=== PATIENT | male | born 1975 | race Caucasian/White ===

== ENCOUNTER 2018-06-14 01:17 | Inpatient (IN) | payer MEDICARE, OTHER ==
[~2018-06-14] VITALS: Ht 162.6 cm; Wt 84.4 kg
[2018-06-14] MEDS ORDERED: Morphine Sulfate 4mg/ml Inj (IV USE ONLY) IVP ONE (01:30)
[2018-06-14 02:07] VITALS: BP 165/116
--- NOTE | 2018-06-14 02:10 | NUR ---
ER Nurse Note: Pt DANIELA from SNF c/o lower back pain. Per pt, pt was dropped from a [facility] 06/13 and has been in 12/13 constant pain. Pt a&ox4, no signs of distress. Pt is quadriplegic. Pt has a suprapubic cath prior to admission. Per pt, the cathder has not been changed since 5 years ago. Will continue to [facility].
[2018-06-14 02:22] LABS: BILIRUBIN, URINE NEGATIVE (NEGATIVE); GLUCOSE, URINE (UA) 3+ (NEGATIVE); KETONES,URINE NEGATIVE (NEGATIVE); LEUKOCYTE ESTERASE ,URINE 3+ (NEGATIVE); NITRITE,URINE POSITIVE (NEGATIVE); PH,URINE 7 (4.5-8.0); PROTEIN,URINE 4+ (NEGATIVE); UROBILINOGEN,URINE NORMAL MG/DL (0.0-1.0)
--- NOTE | 2018-06-14 02:27 | Emergency Room Report ---
History of Present Illness General Chief Complaint: Lower Back Pain or Injury Source: Patient Present Illness HPI Patient presents with complaints of several different concerns Patient has a suprapubic catheter and reports that he has increased discomfort in that region continued low back discomfort patient reports that he has history of spina bifida an ongoing infection Reports that he was dropped today and has had continued discomfort as well patient is paraplegic denies any chest pain or shortness of breath questionable low-grade fever denies any neck pain denies any rash Allergies: Coded Allergies: CIPROFLOXACIN (Verified Allergy, Unknown, 06/14/18) HALOPERIDOL (Verified Allergy, Unknown, 06/14/18) RISPERIDONE (Verified Allergy, Unknown, 06/14/18) SENNA (Verified Allergy, Unknown, 06/14/18) Patient History Past Medical History: see triage record Pertinent Family History: none Reviewed Nursing Documentation: PMH: Agreed; PSxH: Agreed Nursing Documentation-PMH Hx COPD: Yes Hx Diabetes: Yes Hx Gastrointestinal Problems: Yes - Reflux History Of Psychiatric Problem: Yes - Schizophrenia Review of Systems All Other Systems: negative except mentioned in HPI Physical Exam Vital Signs Date Time Temp Pulse Resp B/P (MAP) Pulse Ox O2 Delivery O2 Flow Rate FiO2 06/14/18 01:23 98.1 104 18 165/116 96 Room Air Sp02 EP Interpretation: reviewed, normal General Appearance: no apparent distress Head: normocephalic, atraumatic Eyes: bilateral eye PERRL, bilateral eye EOMI ENT: hearing grossly normal, normal pharynx Respiratory: lungs clear, no retraction, no accessory muscle use Cardiovascular #1: regular rate, rhythm Gastrointestinal: non tender, soft, no mass Musculoskeletal: other - Patient is paraplegic Neurologic: alert, oriented x3, responsive Psychiatric: anxious Skin: other - Edema in both lower extremities open wound in the back, Lymphatic: no adenopathy Medical Decision Making Diagnostic Impression: Primary Impression: Low back pain Additional Impression: UTI (urinary tract infection) ER Course Given the patient's history and presentation multiple differentials and consideration Patient is somewhat complex requires pain medication as well Patient's urine sample shows significant infectious pathology He reports that he has had infection on every urine sample that has been obtained He also reports that he always gets C. difficile if he gets put on antibiotics Patient does not appear necessarily septic or toxic currently Patient also not able to facilitate himself at the facility that he was at Requires further inpatient care and appropriate disposition Labs Test 06/14/18 02:05 06/14/18 03:00 Urine Color Yellow Urine Appearance Turbid Urine pH 7 (4.5-8.0) Urine Specific [place] 1.010 (1.005-1.035) Urine Protein 4+ (NEGATIVE) Urine Glucose (UA) 3+ (NEGATIVE) Urine Ketones Negative (NEGATIVE) Urine Blood 5+ (NEGATIVE) Urine Nitrite Positive (NEGATIVE) Urine Bilirubin Negative (NEGATIVE) Urine Urobilinogen Normal MG/DL (0.0-1.0) Urine Leukocyte Esterase 3+ (NEGATIVE) Urine RBC Tntc /HPF (0 - 0) Urine WBC Tntc /HPF (0 - 0) Urine Squamous Epithelial Cells None /LPF (NONE/OCC) Urine Bacteria Many /HPF (NONE) White Blood Count 9.2 K/UL (4.8-10.8) Red Blood Count 5.01 M/UL (4.70-6.10) Hemoglobin 13.8 G/DL (14.2-18.0) Hematocrit 42.4 % (42.0-52.0) Mean Corpuscular Volume 85 FL (80-99) Mean Corpuscular Hemoglobin 27.6 PG (27.0-31.0) Mean Corpuscular Hemoglobin Concent 32.6 G/DL (32.0-36.0) Red Cell Distribution Width 14.5 % (11.6-14.8) Platelet Count 331 K/UL (150-450) Mean Platelet Volume 5.8 FL (6.5-10.1) Neutrophils (%) (Auto) 61.7 % (45.0-75.0) Lymphocytes (%) (Auto) 25.8 % (20.0-45.0) Monocytes (%) (Auto) 9.5 % (1.0-10.0) Eosinophils (%) (Auto) 1.9 % (0.0-3.0) Basophils (%) (Auto) 1.1 % (0.0-2.0) Sodium Level 136 MMOL/L (136-145) Potassium Level 4.2 MMOL/L (3.5-5.1) Chloride Level 101 MMOL/L (98-107) Carbon Dioxide Level 22 MMOL/L (21-32) Anion Gap 13 mmol/L (5-15) Blood Urea Nitrogen 13 mg/dL (7-18) Creatinine 0.5 MG/DL (0.55-1.30) Estimat Glomerular Filtration Rate > 60 mL/min (>60) Glucose Level 270 MG/DL (74-106) Calcium Level 9.2 MG/DL (8.5-10.1) Total Bilirubin 0.1 MG/DL (0.2-1.0) Aspartate Amino Transf (AST/SGOT) 17 U/L (15-37) Alanine Aminotransferase (ALT/SGPT) 32 U/L (12-78) Alkaline Phosphatase 78 U/L (46-116) Total Protein 8.1 G/DL (6.4-8.2) Albumin 3.0 G/DL (3.4-5.0) Globulin 5.1 g/dL Albumin/Globulin Ratio 0.6 (1.0-2.7) Lipase 167 U/L (73-393) Last Vital Signs Date Time Temp Pulse Resp B/P (MAP) Pulse Ox O2 Delivery O2 Flow Rate FiO2 06/14/18 02:07 98.1 86 18 165/116 96 Room Air Status: improved Disposition: ADMITTED INPATIENT Condition: Serious Referrals: Srini Cox DO (PCP) John Quijano DO Jun 14, 2018 02:27
[2018-06-14 02:33] LABS: COLOR,URINE YELLOW
[2018-06-14 02:36] LABS: APPEARANCE,URINE TURBID
[2018-06-14] MEDS ORDERED: cefTRIAXone 1 GM in D5W 55 ML IVPB ONE (03:00)
--- NOTE | 2018-06-14 03:08 | NUR ---
ED Nurse Note: Unable to start peripheral IV x several attempts and multiple nurses. Dr. Quijano states the patient can be admitted upstairs without an IV line.
--- NOTE | 2018-06-14 03:09 | NUR ---
ER Nurse Note: Primary RN, charge nurse and other nursing staff could not establish IV access; ERMD aware and per ERMD verbal order, it is okay for pt not to have an IV and can go to floor without IV. Lab was called to draw blood; awaiting results then ready for transport. Pt a&ox4, no signs of distress; will continue to [facility].
[2018-06-14] MEDS ORDERED: Morphine Sulfate 2mg/ml Inj(IV/IM USE ONLY) IM ONE (03:15)
[2018-06-14 03:22] LABS: BASOPHILS % (AUTO) 1.1 % (0.0-2.0); EOSINOPHILS % (AUTO) 1.9 % (0.0-3.0); HEMATOCRIT 42.4 % (42.0-52.0); HEMOGLOBIN 13.8 G/DL (14.2-18.0); LYMPHOCYTES % (AUTO) 25.8 % (20.0-45.0); MEAN CORPUSCULAR VOLUME 85 FL (80-99); MONOCYTES % (AUTO) 9.5 % (1.0-10.0); NEUTROPHILS % (AUTO) 61.7 % (45.0-75.0); PLATELET COUNT 331 K/UL (150-450); RED BLOOD COUNT 5.01 M/UL (4.70-6.10); RED CELL DISTRIBUTION WIDTH 14.5 % (11.6-14.8); WHITE BLOOD COUNT 9.2 K/UL (4.8-10.8)
[2018-06-14 03:25] LABS: ANION GAP 13 mmol/L (5-15); BLOOD UREA NITROGEN 13 mg/dL (7-18); CALCIUM 9.2 MG/DL (8.5-10.1); CARBON DIOXIDE 22 MMOL/L (21-32); CHLORIDE 101 MMOL/L (98-107); CREATININE 0.5 MG/DL (0.55-1.30); POTASSIUM 4.2 MMOL/L (3.5-5.1); SODIUM 136 MMOL/L (136-145)
[2018-06-14 03:30] LABS: ALANINE AMINOTRANSFERASE 32 U/L (12-78); ALBUMIN/GLOBULIN RATIO 0.6 (1.0-2.7); ALKALINE PHOSPHATASE 78 U/L (46-116); ASPARTATE AMINO TRANSFERASE 17 U/L (15-37); BILIRUBIN,TOTAL 0.1 MG/DL (0.2-1.0)
--- NOTE | 2018-06-14 03:46 | NUR ---
ER Nurse Note: Pt refused to be cleaned; primary nurse, charge nurse, and other staff member offered and refused. Pt demanded to stay on the linens he came with and refused to be changed with hospital gown. Wound documented; pt ready for transport.
--- NOTE | 2018-06-14 04:30 | NUR ---
ER Nurse Note: Report given to OBED Abad in [place] for continuity of care. Pt a&ox4, VSS, no signs of distress. No IV access, ERMD aware. All orders completed per ERMD orders. Pt left with all belongings.
--- NOTE | 2018-06-14 04:40 | NUR ---
NURSE NOTES: Pt received a&ox4, VSS, no signs of distress. Extremely garrulous.No IV access, ERMD aware. I will place an IV. Pt left with all belongings. Belongings list signed.
[2018-06-14 05:00] VITALS: BP 137/98
--- NOTE | 2018-06-14 07:45 | NUR ---
NURSE NOTES: Report received from Annalee CLAY, rounds made. Patient resting in semi-fowlers position in bed, unable to move upper/lower extremities. RW heplock intact, asymptomatic. Patient complains of pain to lower back 12/13, awaiting call back from MD for orders, will medicate when orders received, patient aware. No SOB on RA, no NV. Left lower abdomen suprapubic catheter draining yellow cloudy urine to gravity. Right ischium pressure ulcer noted, awaiting air tucker to assess and advise further on wound care. Patient refused repositioning, would like to stay in supine/semi-fowlers position, educated on pressure ulcer prevention/turning every 2 hours. Patient screaming, inappropriate, cursing, updated patient on order status. Offered PO intake. Bed in lowest position, call light in reach (patient unable to press), side rails up x2, will continue to monitor.
[2018-06-14 08:00] VITALS: BP 131/90
--- NOTE | 2018-06-14 08:42 | NUR ---
HAND-OFF: Report given to OBED Thomas.
--- NOTE | 2018-06-14 08:56 | NUR ---
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 LOWER BACK PAIN VS: BP 165/116, P 104, T 98.0, RR 18, SpO2 96 Hgb 13.8, CR 0.5, URINE: Blood 5+, Protein 4+, Glucose 3+ IS:ZOFRAN 4mg MORPHINE 4mg IM ADMITTED TO MED/SURG DCP; RETURN TO [facility]
--- NOTE | 2018-06-14 09:18 | NUR ---
NURSE NOTES: Dr Cox called multiple times, Left message, No response, called supervisor tank house to attempt to receive admission orders
[2018-06-14] MEDS ORDERED: Miralax 17gm pkt ORAL PRN (10:00)
[2018-06-14] MEDS ORDERED: Zolpidem 5mg tab ORAL PRN (10:00)
[2018-06-14] MEDS ORDERED: Morphine Sulfate 4mg/ml Inj (IV USE ONLY) IVP PRN (10:00)
[2018-06-14] MEDS ORDERED: Mylanta II UD 30ml ORAL PRN (10:00)
--- NOTE | 2018-06-14 10:47 | Consultation ---
History of Present Illness General Date patient seen: Jun 14, 2018 Chief Complaint: Lower Back Pain or Injury Reason for Consultation: UTI Present Illness HPI Mr. Guerin is a 43 yo male with PMHx of Spina bifida, COPD, DM, and Schizophrenia who presented to the ED on 06/13/18 after a fall. Eliseo patient reports that he was dropped. He also reports pain at his suprapubic cath site and subjective fevers. In the ED he was afebrile and had no leukoctyosis. His UA was positive and he was given a dose of ceftriaxone. He is currently concerned about back pain and constipation and reports that he has not had a BM on 4 days. He has been upset about this and is not will to wait for the laxatives to work and is demanding an enema. I would not for the record that he has been verbally abusive to his nurse and other staff. ID consulted for UTI PMHx/PSHx Spina bifida COPD DM Schizophrenia Suprapubic cath SocHx No E/T/D FamHx Not contributory Allergies: Coded Allergies: CIPROFLOXACIN (Verified Allergy, Unknown, 06/14/18) HALOPERIDOL (Verified Allergy, Unknown, 06/14/18) RISPERIDONE (Verified Allergy, Unknown, 06/14/18) SENNA (Verified Allergy, Unknown, 06/14/18) Patient History Healthcare decision maker Resuscitation status Full Code Advanced Directive on File Review of Systems ROS Narrative 12 point ROS negative except as note in the HPI. Physical Exam Last 24 Hour Vital Signs Date Time Temp Pulse Resp B/P (MAP) Pulse Ox O2 Delivery O2 Flow Rate FiO2 06/14/18 08:00 97.8 94 20 131/90 (104) 99 06/14/18 07:29 Room Air 06/14/18 05:00 97.3 97 20 137/98 (111) 100 06/14/18 04:30 97.8 84 18 148/98 97 Room Air 06/14/18 04:00 98.1 06/14/18 02:07 98.1 86 18 165/116 96 Room Air 06/14/18 01:23 98.1 104 18 165/116 96 Room Air Laboratory Tests Test 06/14/18 02:05 06/14/18 03:00 Urine Color Yellow Urine Appearance Turbid Urine pH 7 (4.5-8.0) Urine Specific [place] 1.010 (1.005-1.035) Urine Protein 4+ (NEGATIVE) H Urine Glucose (UA) 3+ (NEGATIVE) H Urine Ketones Negative (NEGATIVE) Urine Blood 5+ (NEGATIVE) H Urine Nitrite Positive (NEGATIVE) H Urine Bilirubin Negative (NEGATIVE) Urine Urobilinogen Normal MG/DL (0.0-1.0) Urine Leukocyte Esterase 3+ (NEGATIVE) H Urine RBC Tntc /HPF (0 - 0) H Urine WBC Tntc /HPF (0 - 0) H Urine Squamous Epithelial Cells None /LPF (NONE/OCC) Urine Bacteria Many /HPF (NONE) H White Blood Count 9.2 K/UL (4.8-10.8) Red Blood Count 5.01 M/UL (4.70-6.10) Hemoglobin 13.8 G/DL (14.2-18.0) L Hematocrit 42.4 % (42.0-52.0) Mean Corpuscular Volume 85 FL (80-99) Mean Corpuscular Hemoglobin 27.6 PG (27.0-31.0) Mean Corpuscular Hemoglobin Concent 32.6 G/DL (32.0-36.0) Red Cell Distribution Width 14.5 % (11.6-14.8) Platelet Count 331 K/UL (150-450) Mean Platelet Volume 5.8 FL (6.5-10.1) L Neutrophils (%) (Auto) 61.7 % (45.0-75.0) Lymphocytes (%) (Auto) 25.8 % (20.0-45.0) Monocytes (%) (Auto) 9.5 % (1.0-10.0) Eosinophils (%) (Auto) 1.9 % (0.0-3.0) Basophils (%) (Auto) 1.1 % (0.0-2.0) Sodium Level 136 MMOL/L (136-145) Potassium Level 4.2 MMOL/L (3.5-5.1) Chloride Level 101 MMOL/L (98-107) Carbon Dioxide Level 22 MMOL/L (21-32) Anion Gap 13 mmol/L (5-15) Blood Urea Nitrogen 13 mg/dL (7-18) Creatinine 0.5 MG/DL (0.55-1.30) L Estimat Glomerular Filtration Rate > 60 mL/min (>60) Glucose Level 270 MG/DL (74-106) H Calcium Level 9.2 MG/DL (8.5-10.1) Total Bilirubin 0.1 MG/DL (0.2-1.0) L Aspartate Amino Transf (AST/SGOT) 17 U/L (15-37) Alanine Aminotransferase (ALT/SGPT) 32 U/L (12-78) Alkaline Phosphatase 78 U/L (46-116) Total Protein 8.1 G/DL (6.4-8.2) Albumin 3.0 G/DL (3.4-5.0) L Globulin 5.1 g/dL Albumin/Globulin Ratio 0.6 (1.0-2.7) L Lipase 167 U/L (73-393) Microbiology Date/Time Source Procedure Growth Status 06/14/18 05:30 Rectum Received Height (Feet): 5 Height (Inches): 4.00 Weight (Pounds): 186 Medications Current Medications Medications (Trade) Dose Ordered Sig/Trevin Route PRN Reason Start Time Stop Time Status Last Admin Dose Admin Acetaminophen (Tylenol) 650 mg Q4H PRN ORAL fever 06/14/18 10:00 07/14/18 09:59 Al Hydroxide/Mg Hydroxide (Mylanta II) 30 ml Q6H PRN ORAL dyspepsia 06/14/18 10:00 07/14/18 09:59 Dextrose (Dextrose 50%) 25 ml Q30M PRN IV Hypoglycemia 06/14/18 10:00 07/14/18 09:59 Dextrose (Dextrose 50%) 50 ml Q30M PRN IV Hypoglycemia 06/14/18 10:00 07/14/18 09:59 Heparin Sodium (Porcine) (Heparin 5000 units/ml) 5,000 units EVERY 12 HOURS SUBQ 06/14/18 21:00 07/14/18 20:59 Lorazepam (Ativan 2mg/ml 1ml) 0.5 mg Q4H PRN IV For Anxiety 06/14/18 10:00 06/21/18 09:59 Morphine Sulfate (Morphine Sulfate) 2 mg Q4H PRN IVP For Pain 4-6 06/14/18 10:00 06/21/18 09:59 Morphine Sulfate (Morphine Sulfate) 4 mg Q4H PRN IVP For Pain 7-10 06/14/18 10:00 06/21/18 09:59 Ondansetron HCl (Zofran) 4 mg Q6H PRN IVP Nausea & Vomiting 06/14/18 10:00 07/14/18 09:59 Polyethylene Glycol (Miralax) 17 gm HSPRN PRN ORAL Constipation 06/14/18 10:00 07/14/18 09:59 Zolpidem Tartrate (Ambien) 5 mg HSPRN PRN ORAL Insomnia 06/14/18 10:00 06/21/18 09:59 Objective Narrative Gen: NAD, well appearing, alert HEENT: NCAT, MMM, EOMI, PERRL, No Oral lesion, no scleral icterus NECK: full range of motion, supple, no meningismus, No LAD, No JVD LUNGS: CTAB, No W/C, No Accessory muscle use CARDS: RRR, S1, S2, No M/R/G, ABD: Soft, NT, ND, No R/G, + BS, No HSM, No Masses : Deferred Ext: C/C/E, Pulses 2+ B/L (DP, Rad): NEURO: A/O x 4 PSYCH: Mood/affect normal SKIN: Warm/dry, No rashes, He has an ischial ulceration. (No P/E) Assessment/Plan Assessment/Plan 43 yo male with PMHx of Spina bifida, COPD, DM, and Schizophrenia who presented to the ED on 06/13/18 after a fall. UTI Suprapubic cath UA positive UCx 06/13/18 - Pend Leg wounds Do not appear ot be infected Spina bifida COPD DM Schizophrenia Plan - Continue Ceftraxone #2/7 - f/u UCx - Monitor CBC and temps - wound care Thank you for this consult. We will continue to follow the patient during this hospitalization. Octavio Mckinney MD Jun 14, 2018 10:47
[2018-06-14 12:00] VITALS: BP 136/88
[2018-06-14] MEDS ORDERED: cefTRIAXone 1 GM in D5W 55 ML IVPB SCH (12:00)
[2018-06-14] MEDS ORDERED: Fleet's Mineral Oil Enema RECTAL ONE (13:11)
--- NOTE | 2018-06-14 13:32 | Consultation ---
History of Present Illness General Date patient seen: Jun 14, 2018 Chief Complaint: Lower Back Pain or Injury Reason for Consultation: UTI Present Illness HPI 42 year old male with paraplegia, spina bifida, bed bound presented to ER with complaints of severe back pain. Apparently he was dropped today and has had continued discomfort as well patient is paraplegic denies any chest pain or shortness of breath questionable low-grade fever denies any neck pain denies any rash Allergies: Coded Allergies: CIPROFLOXACIN (Verified Allergy, Unknown, 06/14/18) HALOPERIDOL (Verified Allergy, Unknown, 06/14/18) RISPERIDONE (Verified Allergy, Unknown, 06/14/18) SENNA (Verified Allergy, Unknown, 06/14/18) Patient History Healthcare decision maker Resuscitation status Full Code Advanced Directive on File Past Medical/Surgical History Past Medical/Surgical History: (1) Low back pain Review of Systems Constitutional: Reports: no symptoms ENT: Reports: no symptoms Physical Exam General Appearance: WD/WN, no apparent distress HEENT: normocephalic, anicteric Neck: non-tender, normal alignment Respiratory/Chest: lungs clear, normal breath sounds Cardiovascular/Chest: normal peripheral pulses, normal rate Last 24 Hour Vital Signs Date Time Temp Pulse Resp B/P (MAP) Pulse Ox O2 Delivery O2 Flow Rate FiO2 06/14/18 08:00 97.8 94 20 131/90 (104) 99 06/14/18 07:29 Room Air 06/14/18 05:00 97.3 97 20 137/98 (111) 100 06/14/18 04:30 97.8 84 18 148/98 97 Room Air 06/14/18 04:00 98.1 06/14/18 02:07 98.1 86 18 165/116 96 Room Air 06/14/18 01:23 98.1 104 18 165/116 96 Room Air Laboratory Tests Test 06/14/18 02:05 06/14/18 03:00 Urine Color Yellow Urine Appearance Turbid Urine pH 7 (4.5-8.0) Urine Specific [place] 1.010 (1.005-1.035) Urine Protein 4+ (NEGATIVE) H Urine Glucose (UA) 3+ (NEGATIVE) H Urine Ketones Negative (NEGATIVE) Urine Blood 5+ (NEGATIVE) H Urine Nitrite Positive (NEGATIVE) H Urine Bilirubin Negative (NEGATIVE) Urine Urobilinogen Normal MG/DL (0.0-1.0) Urine Leukocyte Esterase 3+ (NEGATIVE) H Urine RBC Tntc /HPF (0 - 0) H Urine WBC Tntc /HPF (0 - 0) H Urine Squamous Epithelial Cells None /LPF (NONE/OCC) Urine Bacteria Many /HPF (NONE) H White Blood Count 9.2 K/UL (4.8-10.8) Red Blood Count 5.01 M/UL (4.70-6.10) Hemoglobin 13.8 G/DL (14.2-18.0) L Hematocrit 42.4 % (42.0-52.0) Mean Corpuscular Volume 85 FL (80-99) Mean Corpuscular Hemoglobin 27.6 PG (27.0-31.0) Mean Corpuscular Hemoglobin Concent 32.6 G/DL (32.0-36.0) Red Cell Distribution Width 14.5 % (11.6-14.8) Platelet Count 331 K/UL (150-450) Mean Platelet Volume 5.8 FL (6.5-10.1) L Neutrophils (%) (Auto) 61.7 % (45.0-75.0) Lymphocytes (%) (Auto) 25.8 % (20.0-45.0) Monocytes (%) (Auto) 9.5 % (1.0-10.0) Eosinophils (%) (Auto) 1.9 % (0.0-3.0) Basophils (%) (Auto) 1.1 % (0.0-2.0) Sodium Level 136 MMOL/L (136-145) Potassium Level 4.2 MMOL/L (3.5-5.1) Chloride Level 101 MMOL/L (98-107) Carbon Dioxide Level 22 MMOL/L (21-32) Anion Gap 13 mmol/L (5-15) Blood Urea Nitrogen 13 mg/dL (7-18) Creatinine 0.5 MG/DL (0.55-1.30) L Estimat Glomerular Filtration Rate > 60 mL/min (>60) Glucose Level 270 MG/DL (74-106) H Calcium Level 9.2 MG/DL (8.5-10.1) Total Bilirubin 0.1 MG/DL (0.2-1.0) L Aspartate Amino Transf (AST/SGOT) 17 U/L (15-37) Alanine Aminotransferase (ALT/SGPT) 32 U/L (12-78) Alkaline Phosphatase 78 U/L (46-116) Total Protein 8.1 G/DL (6.4-8.2) Albumin 3.0 G/DL (3.4-5.0) L Globulin 5.1 g/dL Albumin/Globulin Ratio 0.6 (1.0-2.7) L Lipase 167 U/L (73-393) Microbiology Date/Time Source Procedure Growth Status 06/14/18 05:30 Rectum Received Height (Feet): 5 Height (Inches): 4.00 Weight (Pounds): 186 Medications Current Medications Medications (Trade) Dose Ordered Sig/Trevin Route PRN Reason Start Time Stop Time Status Last Admin Dose Admin Acetaminophen (Tylenol) 650 mg Q4H PRN ORAL fever 06/14/18 10:00 07/14/18 09:59 Al Hydroxide/Mg Hydroxide (Mylanta II) 30 ml Q6H PRN ORAL dyspepsia 06/14/18 10:00 07/14/18 09:59 Ceftriaxone Sodium 1 gm/ Dextrose 55 ml @ 110 mls/hr Q24H IVPB 06/14/18 12:00 06/21/18 11:59 Dextrose (Dextrose 50%) 25 ml Q30M PRN IV Hypoglycemia 06/14/18 10:00 07/14/18 09:59 Dextrose (Dextrose 50%) 50 ml Q30M PRN IV Hypoglycemia 06/14/18 10:00 07/14/18 09:59 Heparin Sodium (Porcine) (Heparin 5000 units/ml) 5,000 units EVERY 12 HOURS SUBQ 06/14/18 21:00 07/14/18 20:59 Hydromorphone HCl (Dilaudid) 4 mg Q4H PRN ORAL pain>7 06/14/18 13:30 06/21/18 13:29 UNV Lorazepam (Ativan 2mg/ml 1ml) 0.5 mg Q4H PRN IV For Anxiety 06/14/18 10:00 06/21/18 09:59 Methadone HCl (Methadone HCl) 10 mg EVERY 8 HOURS ORAL 06/14/18 14:00 06/21/18 13:59 UNV Morphine Sulfate (Morphine Sulfate) 2 mg Q4H PRN IVP For Pain 4-6 06/14/18 10:00 06/21/18 09:59 Morphine Sulfate (Morphine Sulfate) 4 mg Q4H PRN IVP For Pain 7-10 06/14/18 10:00 06/21/18 09:59 06/14/18 10:47 Ondansetron HCl (Zofran) 4 mg Q6H PRN IVP Nausea & Vomiting 06/14/18 10:00 07/14/18 09:59 Polyethylene Glycol (Miralax) 17 gm HSPRN PRN ORAL Constipation 06/14/18 10:00 07/14/18 09:59 06/14/18 13:14 Zolpidem Tartrate (Ambien) 5 mg HSPRN PRN ORAL Insomnia 06/14/18 10:00 06/21/18 09:59 Assessment/Plan Problem List: (1) Intractable back pain ICD Codes: M54.9 - Dorsalgia, unspecified SNOMED: 491328261 (2) Paraplegia ICD Codes: G82.20 - Paraplegia, unspecified SNOMED: 87281314 Assessment/Plan pain management wound care surgery to see. Joao Siu MD Jun 14, 2018 13:32
[2018-06-14] MEDS ORDERED: Fleet's Mineral Oil Enema RECTAL SCH (13:45)
[2018-06-14 16:00] VITALS: BP 138/87
--- NOTE | 2018-06-14 16:10 | Consultation ---
History of Present Illness General Date patient seen: Jun 14, 2018 Reason for Hospitalization: Lower Back Pain or Injury Present Illness HPI 42 year old male with very unfortunate medical history who is a quadriplegic presented with pain and admitted for medical care and management. patient noted to be distended and with skin lesions. surgery called to evaluate and assist with care. patient seen, chart reviewed, patient examined. states he wants more laxatives and enema again now to help with BM. has not had bm in a few days and wants to have one now. Allergies: Coded Allergies: CIPROFLOXACIN (Verified Allergy, Unknown, 06/14/18) HALOPERIDOL (Verified Allergy, Unknown, 06/14/18) RISPERIDONE (Verified Allergy, Unknown, 06/14/18) SENNA (Verified Allergy, Unknown, 06/14/18) Patient History History Provided By: Patient, Medical Record, PMD Healthcare decision maker Resuscitation status Full Code Advanced Directive on File Past Medical/Surgical History Past Medical/Surgical History: (1) Abdominal distension (2) UTI (urinary tract infection) (3) Low back pain (4) Paraplegia (5) Intractable back pain Review of Systems Review of Symptoms General ROS: no weight loss or fever Psychological ROS: no depression or mood changes, no memory loss Ophthalmic ROS: no visual changes or eye irritation ENT ROS: no nasal congestion, hearing loss, dizziness Allergy and Immunology ROS: no allergic symptoms or urticaria Hematological and Lymphatic ROS: no swollen glands, unusual bleeding or bruising Endocrine ROS: no polyuria, polydipsia, weight changes, temperature intolerance Respiratory ROS: no cough, shortness of breath, or wheezing Cardiovascular ROS: no chest pain or dyspnea on exertion Gastrointestinal ROS: denies abdominal pain, no bright red blood in stool. Musculoskeletal ROS: no myalgias or arthralgias Neurological ROS: no TIA or stroke symptoms Dermatological ROS: no new or changing skin lesions, rashes or pruritis Physical Exam Physical Exam General appearance: alert, cooperative, no distress, appears stated age Head: Normocephalic, without obvious abnormality, atraumatic Eyes: conjunctivae/corneas clear. PERRL, EOM's intact. Fundi benign Throat: Lips, mucosa, and tongue normal. Teeth and gums normal Neck: supple, symmetrical, trachea midline, no adenopathy, thyroid: not enlarged, symmetric, no tenderness/mass/nodules, no carotid bruit and no JVD Lungs: clear to auscultation bilaterally Heart: regular rate and rhythm, S1, S2 normal, no murmur, click, rub or gallop Abdomen: soft, distended. non-tender. Bowel sounds normal. No masses, no organomegaly Extremities: extremities normal, atraumatic, no cyanosis or edema Pulses: 2+ and symmetric Skin: Skin color, texture, turgor normal. No rashes or lesions Neurologic: Grossly normal Last 24 Hour Vital Signs Date Time Temp Pulse Resp B/P (MAP) Pulse Ox O2 Delivery O2 Flow Rate FiO2 06/14/18 15:45 Room Air 06/14/18 09:00 Room Air 06/14/18 08:00 97.8 94 20 131/90 (104) 99 06/14/18 07:29 Room Air 06/14/18 05:00 97.3 97 20 137/98 (111) 100 06/14/18 04:30 97.8 84 18 148/98 97 Room Air 06/14/18 04:00 98.1 06/14/18 02:07 98.1 86 18 165/116 96 Room Air 06/14/18 01:23 98.1 104 18 165/116 96 Room Air Laboratory Tests Test 06/14/18 02:05 06/14/18 03:00 Urine Color Yellow Urine Appearance Turbid Urine pH 7 (4.5-8.0) Urine Specific Perry 1.010 (1.005-1.035) Urine Protein 4+ (NEGATIVE) H Urine Glucose (UA) 3+ (NEGATIVE) H Urine Ketones Negative (NEGATIVE) Urine Blood 5+ (NEGATIVE) H Urine Nitrite Positive (NEGATIVE) H Urine Bilirubin Negative (NEGATIVE) Urine Urobilinogen Normal MG/DL (0.0-1.0) Urine Leukocyte Esterase 3+ (NEGATIVE) H Urine RBC Tntc /HPF (0 - 0) H Urine WBC Tntc /HPF (0 - 0) H Urine Squamous Epithelial Cells None /LPF (NONE/OCC) Urine Bacteria Many /HPF (NONE) H White Blood Count 9.2 K/UL (4.8-10.8) Red Blood Count 5.01 M/UL (4.70-6.10) Hemoglobin 13.8 G/DL (14.2-18.0) L Hematocrit 42.4 % (42.0-52.0) Mean Corpuscular Volume 85 FL (80-99) Mean Corpuscular Hemoglobin 27.6 PG (27.0-31.0) Mean Corpuscular Hemoglobin Concent 32.6 G/DL (32.0-36.0) Red Cell Distribution Width 14.5 % (11.6-14.8) Platelet Count 331 K/UL (150-450) Mean Platelet Volume 5.8 FL (6.5-10.1) L Neutrophils (%) (Auto) 61.7 % (45.0-75.0) Lymphocytes (%) (Auto) 25.8 % (20.0-45.0) Monocytes (%) (Auto) 9.5 % (1.0-10.0) Eosinophils (%) (Auto) 1.9 % (0.0-3.0) Basophils (%) (Auto) 1.1 % (0.0-2.0) Sodium Level 136 MMOL/L (136-145) Potassium Level 4.2 MMOL/L (3.5-5.1) Chloride Level 101 MMOL/L (98-107) Carbon Dioxide Level 22 MMOL/L (21-32) Anion Gap 13 mmol/L (5-15) Blood Urea Nitrogen 13 mg/dL (7-18) Creatinine 0.5 MG/DL (0.55-1.30) L Estimat Glomerular Filtration Rate > 60 mL/min (>60) Glucose Level 270 MG/DL (74-106) H Calcium Level 9.2 MG/DL (8.5-10.1) Total Bilirubin 0.1 MG/DL (0.2-1.0) L Aspartate Amino Transf (AST/SGOT) 17 U/L (15-37) Alanine Aminotransferase (ALT/SGPT) 32 U/L (12-78) Alkaline Phosphatase 78 U/L (46-116) Total Protein 8.1 G/DL (6.4-8.2) Albumin 3.0 G/DL (3.4-5.0) L Globulin 5.1 g/dL Albumin/Globulin Ratio 0.6 (1.0-2.7) L Lipase 167 U/L (73-393) Microbiology Date/Time Source Procedure Growth Status 06/14/18 05:30 Rectum Received Height (Feet): 5 Height (Inches): 4.00 Weight (Pounds): 186 Medications Current Medications Medications (Trade) Dose Ordered Sig/Trevin Route PRN Reason Start Time Stop Time Status Last Admin Dose Admin Acetaminophen (Tylenol) 650 mg Q4H PRN ORAL fever 06/14/18 10:00 07/14/18 09:59 Al Hydroxide/Mg Hydroxide (Mylanta II) 30 ml Q6H PRN ORAL dyspepsia 06/14/18 10:00 07/14/18 09:59 Ceftriaxone Sodium 1 gm/ Dextrose 55 ml @ 110 mls/hr Q24H IVPB 06/14/18 12:00 06/21/18 11:59 Dextrose (Dextrose 50%) 25 ml Q30M PRN IV Hypoglycemia 06/14/18 10:00 07/14/18 09:59 Dextrose (Dextrose 50%) 50 ml Q30M PRN IV Hypoglycemia 06/14/18 10:00 07/14/18 09:59 Docusate Sodium (Colace) 100 mg THREE TIMES A DAY ORAL 06/14/18 18:00 07/14/18 17:59 Heparin Sodium (Porcine) (Heparin 5000 units/ml) 5,000 units EVERY 12 HOURS SUBQ 06/14/18 21:00 07/14/18 20:59 Hydromorphone HCl (Dilaudid) 4 mg Q4H PRN ORAL pain>7 06/14/18 13:30 06/21/18 13:29 Lactulose (Cephulac) 30 gm THREE TIMES A DAY ORAL 06/14/18 18:00 07/14/18 17:59 Lorazepam (Ativan 2mg/ml 1ml) 0.5 mg Q4H PRN IV For Anxiety 06/14/18 10:00 06/21/18 09:59 Methadone HCl (Methadone HCl) 10 mg EVERY 8 HOURS ORAL 06/14/18 14:00 06/21/18 13:59 06/14/18 14:18 Mineral Oil (Fleet's Mineral Oil Enema) 133 ml EVERY OTHER DAY RECTAL 06/16/18 09:00 07/16/18 08:59 Mineral Oil (Fleet's Mineral Oil Enema) 133 ml ONCE RECTAL 06/14/18 13:45 06/14/18 18:00 06/14/18 14:20 Morphine Sulfate (Morphine Sulfate) 2 mg Q4H PRN IVP For Pain 4-6 06/14/18 10:00 06/21/18 09:59 Morphine Sulfate (Morphine Sulfate) 4 mg Q4H PRN IVP For Pain 7-10 06/14/18 13:45 06/21/18 13:44 Ondansetron HCl (Zofran) 4 mg Q6H PRN IVP Nausea & Vomiting 06/14/18 10:00 07/14/18 09:59 Polyethylene Glycol (Miralax) 17 gm HSPRN PRN ORAL Constipation 06/14/18 10:00 07/14/18 09:59 06/14/18 13:14 Zolpidem Tartrate (Ambien) 5 mg HSPRN PRN ORAL Insomnia 06/14/18 10:00 06/21/18 09:59 Assessment/Plan Problem List: (1) Intractable back pain ICD Codes: M54.9 - Dorsalgia, unspecified SNOMED: 734372005 (2) Abdominal distension Assessment & Plan: distended abdomen, constipated, discomfort just received an enema. awaiting bowel function will order KUStacy arora for diet will monitor exam thank you will follow with recs ICD Codes: R14.0 - Abdominal distension (gaseous) SNOMED: 30036925 (3) Low back pain ICD Codes: M54.5 - Low back pain SNOMED: 162379869 (4) Paraplegia ICD Codes: G82.20 - Paraplegia, unspecified SNOMED: 10964303 (5) UTI (urinary tract infection) Assessment & Plan: suprapubic catherter labs noted cont abx ICD Codes: N39.0 - Urinary tract infection, site not specified SNOMED: 06412500 Endy De La Rosa Jun 14, 2018 16:10
[2018-06-14] MEDS: Lactulose 20gm/30ml UDC ORAL SCH (18:00)
[2018-06-14] MEDS: Docusate 100mg cap ORAL SCH (18:59)
[2018-06-14] MEDS: HYDROmorphone 4mg tab ORAL PRN (19:00)
--- NOTE | 2018-06-14 19:15 | NUR ---
NURSE NOTES: camouflage assembler specialist assessed right ishium stage 3 pressure ulcer, pictures taken and uploaded, measurements obtained, wound care provided with dressing applied (saline wash, Thera Honey Wound Gel, covered and secured with Optifoam), Hydrophilic topical wound barrier applied to groin. Patient refused repositioning throughout the shift, RN reinforced skin breakdown precautions. Patient medicated with Morphine Sulfate, Methadone and Dilaudid as ordered. Patient medicated with Miralax and Mineral Oil Enema, patient had large brown formed BM. Encouraged PO hydration. Refused IV Rocephin, Dr. Siu and Dr. Mckinney aware. MRSA nasal swab culture obtained and sent to lab.
--- NOTE | 2018-06-14 19:25 | NUR ---
HAND-OFF: Report given to Annalee CLAY.
--- NOTE | 2018-06-14 19:42 | NUR ---
NURSE NOTES: Report received from scott Thomas. Patient resting in semi-fowlers position in bed, unable to move upper/lower extremities- quadriplegic. RW NS lock intact, asymptomatic, patent. Patient complains of pain to lower back 10/10, despite receiving pain med at 1900. Will medicate when due at patients request but not sooner than permitted. No SOB on RA, no NV. Left lower abdomen suprapubic catheter draining yellow cloudy urine to gravity. Right ischium pressure ulcer stage 3. Wound care nurse assessed and saw pt and more pictures were taken and updated. Patient refusing repositioning, would like to stay in supine/semi-fowlers position with HOB up greater than 30 degrees. Educated patient on pressure ulcer prevention/turning every 2 hours and that pressure sore may be exacerbated as there is a great load of pressure directly on the pressure sore in this position. Patient screaming, inappropriate, cursing, Complains of pain despite being given pain medication at 1900. Will continue to monitor and attempt to deescalate patient.
[2018-06-14 20:00] VITALS: BP 126/99
[2018-06-14] MEDS: Morphine Sulfate 4mg/ml Inj (IV USE ONLY) IVP PRN (21:09)
[2018-06-14] MEDS: Heparin 5000 units/ml inj SUBQ SCH (21:10)
--- NOTE | 2018-06-14 22:30 | NUR ---
NURSE NOTES: Dr Cox paged and Dr Vargas is covering. Left message as patient with physician adjuster piano action (Alicia) through the exchange and called her emergency line as given by adjuster piano action exchange. Pt is listed as full code but has POLST and wants to be DNR/DNI. Called twice. Will continue to. Pt also is diabetic but home meds have not been reconciled. Patient stated he is on fluphenazine, metformin and melatonin and trazodone for sleep as well as mutiple other medications, muscle spasms, gabapentin and others. Retrieved full list of medications from patient. Pt diet is listed as regular, but is diabetic. No accu check or sliding scale listed. Left all this information on a voicemail for Dr Vargas. Awaiting a response.
[2018-06-15] VITALS: BP 130/88
[2018-06-15] MEDS: Morphine Sulfate 4mg/ml Inj (IV USE ONLY) IVP PRN (04:00)
[2018-06-15 04:12] VITALS: BP 137/98
--- NOTE | 2018-06-15 04:30 | History and Physical Report ---
DATE OF ADMISSION: 06/14/[address] Srnii Cox. This is Dr. Srini Cox's patient. HISTORY OF PRESENT ILLNESS: The patient has a suprapubic catheter, reports that he is feeling increasing discomfort in that region, also has a history of spina bifida. He is being admitted for possible urinary tract infection. PAST MEDICAL HISTORY: Significant for spina bifida, diabetes, COPD, GERD, schizophrenia. The patient also complains of back pain, history of chronic UTIs in the past, psychosis, anxiety, chronic back pain. PAST SURGICAL HISTORY: History of suprapubic catheter. ALLERGIES: Ciprofloxacin, Haldol, and . FAMILY HISTORY: Noncontributory. SOCIAL HISTORY: Denies history of smoking, drinking, or drug use. REVIEW OF SYSTEMS: HEENT: Denies headaches. RESPIRATORY: Denies shortness of breath. Denies cough. CARDIOVASCULAR: No chest pain. No orthopnea. Does have back pain. CQ DEVELOPER: No change in vision or speech pattern. PHYSICAL EXAMINATION: VITAL SIGNS: Temperature is 97.9, pulse 99, blood pressure 138/87. HEENT: PERRLA. NECK: Supple. No lymphadenopathy. CHEST: Clear to auscultation. CARDIOVASCULAR: Regular rate and rhythm. No murmurs or extra sounds. GASTROINTESTINAL: Soft, nontender, and nondistended. Has suprapubic tenderness. . EXTREMITIES: Reflexes equal on both sides. Moves all 4 extremities. LABORATORY DATA: WBC of 9.2, hemoglobin 13.8, and platelets 331. Sodium 136, potassium 4.2, BUN of 13, creatinine 0.5. ASSESSMENT AND PLAN: Chronic urinary tract infection. I have asked ID doctor to see the patient. . John Estevez M.D. DR: Tracey JOB#: [id number] CC:
[2018-06-15 06:29] LABS: BASOPHILS % (AUTO) 0.9 % (0.0-2.0); EOSINOPHILS % (AUTO) 1.9 % (0.0-3.0); HEMATOCRIT 44.5 % (42.0-52.0); HEMOGLOBIN 14.3 G/DL (14.2-18.0); MEAN CORPUSCULAR VOLUME 86 FL (80-99); MONOCYTES % (AUTO) 7.1 % (1.0-10.0); NEUTROPHILS % (AUTO) 66.2 % (45.0-75.0); PLATELET COUNT 323 K/UL (150-450); RED BLOOD COUNT 5.17 M/UL (4.70-6.10); RED CELL DISTRIBUTION WIDTH 15.3 % (11.6-14.8); WHITE BLOOD COUNT 7.8 K/UL (4.8-10.8)
[2018-06-15 07:27] LABS: ALANINE AMINOTRANSFERASE 39 U/L (12-78); ALBUMIN/GLOBULIN RATIO 0.6 (1.0-2.7); ALKALINE PHOSPHATASE 77 U/L (46-116); ANION GAP 11 mmol/L (5-15); ASPARTATE AMINO TRANSFERASE 19 U/L (15-37); BILIRUBIN,TOTAL 0.2 MG/DL (0.2-1.0); BLOOD UREA NITROGEN 18 mg/dL (7-18); CALCIUM 9.2 MG/DL (8.5-10.1); CARBON DIOXIDE 25 MMOL/L (21-32); CHLORIDE 101 MMOL/L (98-107); CREATININE 0.5 MG/DL (0.55-1.30); POTASSIUM 4.1 MMOL/L (3.5-5.1); SODIUM 137 MMOL/L (136-145)
--- NOTE | 2018-06-15 07:37 | NUR ---
HAND-OFF: Report given to Jovita Jo RN.
--- NOTE | 2018-06-15 07:42 | NUR ---
NURSE NOTES: RN received pt in stable condition, no acute distress or SOB. Bed in low, locked position, call light within reach. Will continue to monitor.
[2018-06-15 08:00] VITALS: BP 130/80
[2018-06-15] MEDS: Morphine Sulfate 2mg/ml Inj(IV/IM USE ONLY) IVP PRN ×2 (08:46→13:00)
--- NOTE | 2018-06-15 09:00 | Infectious Diseases Prog Note ---
Assessment/Plan Assessment/Plan 43 yo male with PMHx of Spina bifida, COPD, DM, and Schizophrenia who presented to the ED on 06/13/18 after a fall. UTI Suprapubic cath UA positive UCx 06/13/18 - GNR Patient refusing Abx Leg wounds Do not appear ot be infected Spina bifida COPD DM Schizophrenia Plan - D/C Ceftriaxone - patient refusing Monitor clinically - f/u UCx - Monitor CBC and temps - wound care We will continue to follow the patient during this hospitalization. Subjective Allergies: Coded Allergies: CIPROFLOXACIN (Verified Allergy, Unknown, 06/14/18) HALOPERIDOL (Verified Allergy, Unknown, 06/14/18) RISPERIDONE (Verified Allergy, Unknown, 06/14/18) SENNA (Verified Allergy, Unknown, 06/14/18) Subjective Patient had BM x4 Feeling alittle better Still refusing abx No Leukoctyosis or fever Objective Vital Signs Last 24 Hour Vital Signs Date Time Temp Pulse Resp B/P (MAP) Pulse Ox O2 Delivery O2 Flow Rate FiO2 06/15/18 04:12 97.9 98 18 137/98 (111) 96 06/15/18 00:00 98.2 107 19 130/88 (102) 95 06/14/18 21:00 Room Air 06/14/18 20:00 98.0 108 19 126/99 (108) 95 06/14/18 16:00 97.9 99 22 138/87 (104) 98 06/14/18 15:45 Room Air 06/14/18 12:00 98.0 90 20 136/88 (104) 98 06/14/18 09:00 Room Air Height (Feet): 5 Height (Inches): 4.00 Weight (Pounds): 186 Objective Gen: NAD, well appearing, alert HEENT: NCAT, MMM, EOMI LUNGS: CTAB, No W CARDS: RRR, S1, S2, No M/R/G, ABD: Soft, NT, ND, + BS NEURO: A/O x 4 Microbiology Date/Time Source Procedure Growth Status 06/14/18 02:05 Urine,Clean Catch Urine Culture - Preliminary Gram Negative Bacillus 1 Resulted 06/14/18 05:30 Rectum Received Laboratory Tests Test 06/15/18 06:20 White Blood Count 7.8 K/UL (4.8-10.8) Red Blood Count 5.17 M/UL (4.70-6.10) Hemoglobin 14.3 G/DL (14.2-18.0) Hematocrit 44.5 % (42.0-52.0) Mean Corpuscular Volume 86 FL (80-99) Mean Corpuscular Hemoglobin 27.7 PG (27.0-31.0) Mean Corpuscular Hemoglobin Concent 32.1 G/DL (32.0-36.0) Red Cell Distribution Width 15.3 % (11.6-14.8) H Platelet Count 323 K/UL (150-450) Mean Platelet Volume 5.8 FL (6.5-10.1) L Neutrophils (%) (Auto) 66.2 % (45.0-75.0) Lymphocytes (%) (Auto) 24.0 % (20.0-45.0) Monocytes (%) (Auto) 7.1 % (1.0-10.0) Eosinophils (%) (Auto) 1.9 % (0.0-3.0) Basophils (%) (Auto) 0.9 % (0.0-2.0) Sodium Level 137 MMOL/L (136-145) Potassium Level 4.1 MMOL/L (3.5-5.1) Chloride Level 101 MMOL/L (98-107) Carbon Dioxide Level 25 MMOL/L (21-32) Anion Gap 11 mmol/L (5-15) Blood Urea Nitrogen 18 mg/dL (7-18) Creatinine 0.5 MG/DL (0.55-1.30) L Estimat Glomerular Filtration Rate > 60 mL/min (>60) Glucose Level 394 MG/DL (74-106) #H Calcium Level 9.2 MG/DL (8.5-10.1) Total Bilirubin 0.2 MG/DL (0.2-1.0) Aspartate Amino Transf (AST/SGOT) 19 U/L (15-37) Alanine Aminotransferase (ALT/SGPT) 39 U/L (12-78) Alkaline Phosphatase 77 U/L (46-116) Total Protein 8.2 G/DL (6.4-8.2) Albumin 3.0 G/DL (3.4-5.0) L Globulin 5.2 g/dL Albumin/Globulin Ratio 0.6 (1.0-2.7) L Thyroid Stimulating Hormone (TSH) 1.313 uiU/mL (0.358-3.740) Current Medications Medications (Trade) Dose Ordered Sig/Trevin Route PRN Reason Start Time Stop Time Status Last Admin Dose Admin Acetaminophen (Tylenol) 650 mg Q4H PRN ORAL fever 06/14/18 10:00 07/14/18 09:59 Al Hydroxide/Mg Hydroxide (Mylanta II) 30 ml Q6H PRN ORAL dyspepsia 06/14/18 10:00 07/14/18 09:59 Ceftriaxone Sodium 1 gm/ Dextrose 55 ml @ 110 mls/hr Q24H IVPB 06/14/18 12:00 06/21/18 11:59 Dextrose (Dextrose 50%) 25 ml Q30M PRN IV Hypoglycemia 06/14/18 10:00 07/14/18 09:59 Dextrose (Dextrose 50%) 50 ml Q30M PRN IV Hypoglycemia 06/14/18 10:00 07/14/18 09:59 Docusate Sodium (Colace) 100 mg THREE TIMES A DAY ORAL 06/14/18 18:00 07/14/18 17:59 06/14/18 18:59 Heparin Sodium (Porcine) (Heparin 5000 units/ml) 5,000 units EVERY 12 HOURS SUBQ 06/14/18 21:00 07/14/18 20:59 06/14/18 21:10 Hydromorphone HCl (Dilaudid) 4 mg Q4H PRN ORAL pain>7 06/14/18 13:30 06/21/18 13:29 06/14/18 19:00 Lactulose (Cephulac) 30 gm THREE TIMES A DAY ORAL 06/14/18 18:00 07/14/18 17:59 Lorazepam (Ativan 2mg/ml 1ml) 0.5 mg Q4H PRN IV For Anxiety 06/14/18 10:00 06/21/18 09:59 Methadone HCl (Methadone HCl) 10 mg EVERY 8 HOURS ORAL 06/14/18 14:00 06/21/18 13:59 06/15/18 06:17 Mineral Oil (Fleet's Mineral Oil Enema) 133 ml EVERY OTHER DAY RECTAL 06/16/18 09:00 07/16/18 08:59 Morphine Sulfate (Morphine Sulfate) 2 mg Q4H PRN IVP For Pain 4-6 06/14/18 10:00 06/21/18 09:59 06/15/18 08:46 Morphine Sulfate (Morphine Sulfate) 4 mg Q4H PRN IVP For Pain 7-06/14/18 13:45 06/21/18 13:44 06/15/18 04:00 Ondansetron HCl (Zofran) 4 mg Q6H PRN IVP Nausea & Vomiting 06/14/18 10:00 07/14/18 09:59 Polyethylene Glycol (Miralax) 17 gm HSPRN PRN ORAL Constipation 06/14/18 10:00 07/14/18 09:59 06/14/18 13:14 Zolpidem Tartrate (Ambien) 5 mg HSPRN PRN ORAL Insomnia 06/14/18 10:00 06/21/18 09:59 Octavio Mckinney MD Jun 15, 2018 09:00
[2018-06-15] MEDS: Lactulose 20gm/30ml UDC ORAL SCH ×3 (09:19→17:53)
[2018-06-15] MEDS: Docusate 100mg cap ORAL SCH ×3 (09:19→17:49)
[2018-06-15] MEDS: Heparin 5000 units/ml inj SUBQ SCH ×2 (09:20→22:16)
--- NOTE | 2018-06-15 09:24 | Consultation ---
History of Present Illness General Date patient seen: Jun 15, 2018 Chief Complaint: Reason for Consultation: Present Illness Allergies: Coded Allergies: CIPROFLOXACIN (Verified Allergy, Unknown, 06/14/18) HALOPERIDOL (Verified Allergy, Unknown, 06/14/18) RISPERIDONE (Verified Allergy, Unknown, 06/14/18) SENNA (Verified Allergy, Unknown, 06/14/18) Patient History Healthcare decision maker Resuscitation status Full Code Advanced Directive on File Physical Exam Last 24 Hour Vital Signs Date Time Temp Pulse Resp B/P (MAP) Pulse Ox O2 Delivery O2 Flow Rate FiO2 06/15/18 04:12 97.9 98 18 137/98 (111) 96 06/15/18 00:00 98.2 107 19 130/88 (102) 95 06/14/18 21:00 Room Air 06/14/18 20:00 98.0 108 19 126/99 (108) 95 06/14/18 16:00 97.9 99 22 138/87 (104) 98 06/14/18 15:45 Room Air 06/14/18 12:00 98.0 90 20 136/88 (104) 98 Intake and Output 06/14/18 06/15/18 18:59 06:59 Intake Total 840 ml Output Total 1300 ml Balance -460 ml Intake Oral 840 ml Output Urine Total 1300 ml # Voids 1 # Bowel Movements 2 2 Laboratory Tests Test 06/15/18 06:20 White Blood Count 7.8 K/UL (4.8-10.8) Red Blood Count 5.17 M/UL (4.70-6.10) Hemoglobin 14.3 G/DL (14.2-18.0) Hematocrit 44.5 % (42.0-52.0) Mean Corpuscular Volume 86 FL (80-99) Mean Corpuscular Hemoglobin 27.7 PG (27.0-31.0) Mean Corpuscular Hemoglobin Concent 32.1 G/DL (32.0-36.0) Red Cell Distribution Width 15.3 % (11.6-14.8) H Platelet Count 323 K/UL (150-450) Mean Platelet Volume 5.8 FL (6.5-10.1) L Neutrophils (%) (Auto) 66.2 % (45.0-75.0) Lymphocytes (%) (Auto) 24.0 % (20.0-45.0) Monocytes (%) (Auto) 7.1 % (1.0-10.0) Eosinophils (%) (Auto) 1.9 % (0.0-3.0) Basophils (%) (Auto) 0.9 % (0.0-2.0) Sodium Level 137 MMOL/L (136-145) Potassium Level 4.1 MMOL/L (3.5-5.1) Chloride Level 101 MMOL/L (98-107) Carbon Dioxide Level 25 MMOL/L (21-32) Anion Gap 11 mmol/L (5-15) Blood Urea Nitrogen 18 mg/dL (7-18) Creatinine 0.5 MG/DL (0.55-1.30) L Estimat Glomerular Filtration Rate > 60 mL/min (>60) Glucose Level 394 MG/DL (74-106) #H Calcium Level 9.2 MG/DL (8.5-10.1) Total Bilirubin 0.2 MG/DL (0.2-1.0) Aspartate Amino Transf (AST/SGOT) 19 U/L (15-37) Alanine Aminotransferase (ALT/SGPT) 39 U/L (12-78) Alkaline Phosphatase 77 U/L (46-116) Total Protein 8.2 G/DL (6.4-8.2) Albumin 3.0 G/DL (3.4-5.0) L Globulin 5.2 g/dL Albumin/Globulin Ratio 0.6 (1.0-2.7) L Thyroid Stimulating Hormone (TSH) 1.313 uiU/mL (0.358-3.740) Height (Feet): 5 Height (Inches): 4.00 Weight (Pounds): 186 Medications Current Medications Medications (Trade) Dose Ordered Sig/Trevin Route PRN Reason Start Time Stop Time Status Last Admin Dose Admin Acetaminophen (Tylenol) 650 mg Q4H PRN ORAL fever 06/14/18 10:00 07/14/18 09:59 Al Hydroxide/Mg Hydroxide (Mylanta II) 30 ml Q6H PRN ORAL dyspepsia 06/14/18 10:00 07/14/18 09:59 Dextrose (Dextrose 50%) 25 ml Q30M PRN IV Hypoglycemia 06/14/18 10:00 07/14/18 09:59 Dextrose (Dextrose 50%) 50 ml Q30M PRN IV Hypoglycemia 06/14/18 10:00 07/14/18 09:59 Docusate Sodium (Colace) 100 mg THREE TIMES A DAY ORAL 06/14/18 18:00 07/14/18 17:59 06/14/18 18:59 Heparin Sodium (Porcine) (Heparin 5000 units/ml) 5,000 units EVERY 12 HOURS SUBQ 06/14/18 21:00 07/14/18 20:59 06/14/18 21:10 Hydromorphone HCl (Dilaudid) 4 mg Q4H PRN ORAL pain>7 06/14/18 13:30 06/21/18 13:29 06/14/18 19:00 Lactulose (Cephulac) 30 gm THREE TIMES A DAY ORAL 06/14/18 18:00 07/14/18 17:59 Lorazepam (Ativan 2mg/ml 1ml) 0.5 mg Q4H PRN IV For Anxiety 06/14/18 10:00 06/21/18 09:59 Methadone HCl (Methadone HCl) 10 mg EVERY 8 HOURS ORAL 06/14/18 14:00 06/21/18 13:59 06/15/18 06:17 Mineral Oil (Fleet's Mineral Oil Enema) 133 ml EVERY OTHER DAY RECTAL 06/16/18 09:00 07/16/18 08:59 Morphine Sulfate (Morphine Sulfate) 2 mg Q4H PRN IVP For Pain 4-6 06/14/18 10:00 06/21/18 09:59 06/15/18 08:46 Morphine Sulfate (Morphine Sulfate) 4 mg Q4H PRN IVP For Pain 7-10 06/14/18 13:45 06/21/18 13:44 06/15/18 04:00 Ondansetron HCl (Zofran) 4 mg Q6H PRN IVP Nausea & Vomiting 06/14/18 10:00 07/14/18 09:59 Polyethylene Glycol (Miralax) 17 gm HSPRN PRN ORAL Constipation 06/14/18 10:00 07/14/18 09:59 06/14/18 13:14 Zolpidem Tartrate (Ambien) 5 mg HSPRN PRN ORAL Insomnia 06/14/18 10:00 06/21/18 09:59 Assessment/Plan Assessment/Plan (1) Paraplegia (2) H/o Thoracic and Lumbar fusion (3) Neuropathic pain seen dictated Larry Mi Jun 15, 2018 09:24
--- NOTE | 2018-06-15 09:28 | NUR ---
RADIOLOGY DEPT., ABDOMEN X-RAY DONE.-P.DYE
--- NOTE | 2018-06-15 10:14 | NUR ---
NURSE NOTES: Pt prescribed 45 ml Lactalose. Pt refused 15 ml. RN returned up opened med. Addendum: 06/15/18 at 1802 by CORRIE MARTINEZ RN Clarification, pt refused additional 10 grams of Lactalose, per order. RN did not open that container and returned un-opened med.
[2018-06-15] MEDS: HYDROmorphone 4mg tab ORAL PRN ×4 (10:42→23:46)
--- NOTE | 2018-06-15 11:05 | Diagnostic Imaging Report ---
Indication: Abdominal pain Technique: Supine view of the abdomen Comparison: none Findings: Spinal fusion rods are demonstrated. The central portions of these is discontinuous. There is also evidence of extensive bony fusion, probably by bone grafting, of the left side of the lower thoracic and lumbar spine. There is scoliotic deformity. These have extensions into the iliac bones bilaterally. Bowel gas pattern demonstrates considerable gas in nondilated colon. No definite gaseous distention of large or small bowel. There is questionable hepatosplenomegaly Impression: No definite acute process. Questionable hepatosplenomegaly Other findings as noted
--- NOTE | 2018-06-15 11:14 | Surgery Progress Note ---
Surgery Progress Note Subjective Additional Comments had BM yesterday sometime after enema. states feels much better since BM. no n /v/f/c. afebrile, H D stable labs noted KUB noted Objective Last 24 Hour Vital Signs Date Time Temp Pulse Resp B/P (MAP) Pulse Ox O2 Delivery O2 Flow Rate FiO2 06/15/18 09:00 Room Air 06/15/18 08:00 98.0 99 18 130/80 (97) 96 06/15/18 04:12 97.9 98 18 137/98 (111) 96 06/15/18 00:00 98.2 107 19 130/88 (102) 95 06/14/18 21:00 Room Air 06/14/18 20:00 98.0 108 19 126/99 (108) 95 06/14/18 16:00 97.9 99 22 138/87 (104) 98 06/14/18 15:45 Room Air 06/14/18 12:00 98.0 90 20 136/88 (104) 98 I&O Intake and Output 06/14/18 06/15/18 19:00 07:00 Intake Total 840 ml Output Total 1300 ml Balance -460 ml Intake Oral 840 ml Output Urine Total 1300 ml # Voids 1 # Bowel Movements 2 2 Laboratory Tests Test 06/15/18 06:20 White Blood Count 7.8 K/UL (4.8-10.8) Red Blood Count 5.17 M/UL (4.70-6.10) Hemoglobin 14.3 G/DL (14.2-18.0) Hematocrit 44.5 % (42.0-52.0) Mean Corpuscular Volume 86 FL (80-99) Mean Corpuscular Hemoglobin 27.7 PG (27.0-31.0) Mean Corpuscular Hemoglobin Concent 32.1 G/DL (32.0-36.0) Red Cell Distribution Width 15.3 % (11.6-14.8) H Platelet Count 323 K/UL (150-450) Mean Platelet Volume 5.8 FL (6.5-10.1) L Neutrophils (%) (Auto) 66.2 % (45.0-75.0) Lymphocytes (%) (Auto) 24.0 % (20.0-45.0) Monocytes (%) (Auto) 7.1 % (1.0-10.0) Eosinophils (%) (Auto) 1.9 % (0.0-3.0) Basophils (%) (Auto) 0.9 % (0.0-2.0) Sodium Level 137 MMOL/L (136-145) Potassium Level 4.1 MMOL/L (3.5-5.1) Chloride Level 101 MMOL/L (98-107) Carbon Dioxide Level 25 MMOL/L (21-32) Anion Gap 11 mmol/L (5-15) Blood Urea Nitrogen 18 mg/dL (7-18) Creatinine 0.5 MG/DL (0.55-1.30) L Estimat Glomerular Filtration Rate > 60 mL/min (>60) Glucose Level 394 MG/DL (74-106) #H Calcium Level 9.2 MG/DL (8.5-10.1) Total Bilirubin 0.2 MG/DL (0.2-1.0) Aspartate Amino Transf (AST/SGOT) 19 U/L (15-37) Alanine Aminotransferase (ALT/SGPT) 39 U/L (12-78) Alkaline Phosphatase 77 U/L (46-116) Total Protein 8.2 G/DL (6.4-8.2) Albumin 3.0 G/DL (3.4-5.0) L Globulin 5.2 g/dL Albumin/Globulin Ratio 0.6 (1.0-2.7) L Thyroid Stimulating Hormone (TSH) 1.313 uiU/mL (0.358-3.740) Plan Problems: (1) Intractable back pain (2) Abdominal distension Assessment & Plan: distended abdomen, constipated, discomfort had BM after enema feels better now KUB with Findings: Spinal fusion rods are demonstrated. The central portions of these is discontinuous. There is also evidence of extensive bony fusion, probably by bone grafting, of the left side of the lower thoracic and lumbar spine. There is scoliotic deformity. These have extensions into the iliac bones bilaterally. Bowel gas pattern demonstrates considerable gas in nondilated colon. No definite gaseous distention of large or small bowel. There is questionable hepatosplenomegaly okay for diet will monitor exam thank you will follow with recs (3) Low back pain (4) Paraplegia (5) UTI (urinary tract infection) Assessment & Plan: suprapubic catherter labs noted cont abx Endy De La Rosa Jun 15, 2018 11:14
--- NOTE | 2018-06-15 11:44 | NUR ---
P.T Note: P.T evaluation complete. Pt is baseline dependent with ADL/functional mobility and self care tasks. Pt is not a candidate for skilled P.T services. Recommend DC to prior living arrangement for comfort and care. Thank you for this referral.
[2018-06-15] MEDS: NovoLOG Insulin Flexpen SUBQ SCH ×3 (11:56→22:19)
[2018-06-15 12:00] VITALS: BP 146/85
--- NOTE | 2018-06-15 13:54 | NUR ---
RD ASSESSMENT & RECOMMENDATIONS SEE CARE ACTIVITY FOR COMPLETE ASSESSMENT DAILY ESTIMATED NEEDS: Needs based on Quadriplegia, wound 65.5kg adj 23-28 kcals/kg [id number] total kcals 1.25-1.5 g protein/kg 82-98 g total protein 25-30 mL/kg 0810-0272 total fluid mLs NUTRITION DIAGNOSIS: 1) Increased protein needs r/t wound healing and h/o quadriplegia as evidenced by pt w/ stage 3 ischial wound and resolving sacral wound. 2) Altered nutrition related lab values r/t diabetes as evidenced by elev BG (270-394) and elev POC (346), Uglu 3+ on adm. CURRENT DIET: Regular PO DIET RECOMMENDATIONS: *Diet change to-> CCHO LOW W/ DOUBLE PROTEIN PORTIONS* ------ ADDITIONAL RECOMMENDATIONS: 1) Wound care: add JIM BID + VIT C 250mg BID + MVI x1 daily 2) Rec long acting insulin for improved BG ->to improve wound healing 3) Check A1C 4) Calibrated bed scale wts / weekly
--- NOTE | 2018-06-15 14:07 | Pulmonology Progress Note ---
Assessment/Plan Problems: (1) Intractable back pain (2) Paraplegia Assessment/Plan no new complains doing better dc to longterm Subjective ROS Limited/Unobtainable: No Constitutional: Reports: no symptoms HEENT: Repors: no symptoms Allergies: Coded Allergies: CIPROFLOXACIN (Verified Allergy, Unknown, 06/14/18) HALOPERIDOL (Verified Allergy, Unknown, 06/14/18) RISPERIDONE (Verified Allergy, Unknown, 06/14/18) SENNA (Verified Allergy, Unknown, 06/14/18) Objective Last 24 Hour Vital Signs Date Time Temp Pulse Resp B/P (MAP) Pulse Ox O2 Delivery O2 Flow Rate FiO2 06/15/18 09:00 Room Air 06/15/18 08:00 98.0 99 18 130/80 (97) 96 06/15/18 04:12 97.9 98 18 137/98 (111) 96 06/15/18 00:00 98.2 107 19 130/88 (102) 95 06/14/18 21:00 Room Air 06/14/18 20:00 98.0 108 19 126/99 (108) 95 06/14/18 16:00 97.9 99 22 138/87 (104) 98 06/14/18 15:45 Room Air Intake and Output 06/14/18 06/15/18 19:00 07:00 Intake Total 840 ml Output Total 1300 ml Balance -460 ml Intake Oral 840 ml Output Urine Total 1300 ml # Voids 1 # Bowel Movements 2 2 General Appearance: WD/WN HEENT: normocephalic, anicteric Respiratory/Chest: chest wall non-tender, normal breath sounds Cardiovascular: normal peripheral pulses, regular rhythm Abdomen: normal bowel sounds, no organomegaly Genitourinary: normal external genitalia Skin: no rash Microbiology Date/Time Source Procedure Growth Status 06/14/18 02:05 Urine,Clean Catch Urine Culture - Preliminary Gram Negative Bacillus 1 Resulted 06/14/18 05:30 Rectum Received Laboratory Tests 06/15/18 06:20: White Blood Count 7.8, Red Blood Count 5.17, Hemoglobin 14.3, Hematocrit 44.5, Mean Corpuscular Volume 86, Mean Corpuscular Hemoglobin 27.7, Mean Corpuscular Hemoglobin Concent 32.1, Red Cell Distribution Width 15.3H, Platelet Count 323, Mean Platelet Volume 5.8L, Neutrophils (%) (Auto) 66.2, Lymphocytes (%) (Auto) 24.0, Monocytes (%) (Auto) 7.1, Eosinophils (%) (Auto) 1.9, Basophils (%) (Auto ) 0.9, Sodium Level 137, Potassium Level 4.1, Chloride Level 101, Carbon Dioxide Level 25, Anion Gap 11, Blood Urea Nitrogen 18, Creatinine 0.5L, Estimat Glomerular Filtration Rate > 60, Glucose Level 394#H, Calcium Level 9.2 , Total Bilirubin 0.2, Aspartate Amino Transf (AST/SGOT) 19, Alanine Aminotransferase (ALT/SGPT) 39, Alkaline Phosphatase 77, Total Protein 8.2, Albumin 3.0L, Globulin 5.2, Albumin/Globulin Ratio 0.6L, Thyroid Stimulating Hormone (TSH) 1.313 Current Medications Medications (Trade) Dose Ordered Sig/Trevin Route PRN Reason Start Time Stop Time Status Last Admin Dose Admin Acetaminophen (Tylenol) 650 mg Q4H PRN ORAL fever 06/14/18 10:00 07/14/18 09:59 Al Hydroxide/Mg Hydroxide (Mylanta II) 30 ml Q6H PRN ORAL dyspepsia 06/14/18 10:00 07/14/18 09:59 Dextrose (Dextrose 50%) 25 ml Q30M PRN IV Hypoglycemia 06/15/18 11:15 07/15/18 11:14 Dextrose (Dextrose 50%) 50 ml Q30M PRN IV Hypoglycemia 06/15/18 11:15 07/15/18 11:14 Docusate Sodium (Colace) 100 mg THREE TIMES A DAY ORAL 06/14/18 18:00 07/14/18 17:59 06/15/18 13:00 Fluphenazine HCl (Prolixin) 2.5 mg BID ORAL 06/15/18 18:00 07/15/18 17:59 Gabapentin (Neurontin) 100 mg BID ORAL 06/15/18 09:45 07/15/18 09:44 06/15/18 10:42 Heparin Sodium (Porcine) (Heparin 5000 units/ml) 5,000 units EVERY 12 HOURS SUBQ 06/14/18 21:00 07/14/18 20:59 06/15/18 09:20 Hydromorphone HCl (Dilaudid) 4 mg Q4H PRN ORAL pain>7 06/14/18 13:30 06/21/18 13:29 06/15/18 10:42 Insulin Aspart (NovoLOG) BEFORE MEALS AND HS SUBQ 06/15/18 11:30 07/15/18 11:29 06/15/18 11:56 Lactulose (Cephulac) 30 gm THREE TIMES A DAY ORAL 06/14/18 18:00 07/14/18 17:59 06/15/18 09:19 Lorazepam (Ativan 2mg/ml 1ml) 0.5 mg Q4H PRN IV For Anxiety 06/14/18 10:00 06/21/18 09:59 Methadone HCl (Methadone HCl) 10 mg EVERY 8 HOURS ORAL 06/14/18 14:00 06/21/18 13:59 06/15/18 13:37 Mineral Oil (Fleet's Mineral Oil Enema) 133 ml EVERY OTHER DAY RECTAL 06/16/18 09:00 07/16/18 08:59 Morphine Sulfate (Morphine Sulfate) 2 mg Q4H PRN IVP For Pain 4-6 06/14/18 10:00 06/21/18 09:59 06/15/18 08:46 Morphine Sulfate (Morphine Sulfate) 4 mg Q4H PRN IVP For Pain 7-10 06/14/18 13:45 06/21/18 13:44 06/15/18 04:00 Ondansetron HCl (Zofran) 4 mg Q6H PRN IVP Nausea & Vomiting 06/14/18 10:00 07/14/18 09:59 Polyethylene Glycol (Miralax) 17 gm HSPRN PRN ORAL Constipation 06/14/18 10:00 07/14/18 09:59 06/14/18 13:14 Tizanidine HCl (Zanaflex) 2 mg Q12H PRN ORAL muscle spasm 06/15/18 09:42 07/15/18 09:41 Trazodone HCl (Desyrel) 50 mg QHS PRN ORAL Insomnia 06/15/18 14:00 07/15/18 13:59 UNV Zolpidem Tartrate (Ambien) 5 mg HSPRN PRN ORAL Insomnia 06/14/18 10:00 06/21/18 09:59 Joao Siu MD Jun 15, 2018 14:07
[2018-06-15] MEDS ORDERED: DESYREL50 MG ORAL (15:21)
[2018-06-15] MEDS ORDERED: ZANAFLEX4 MG ORAL (15:25)
[2018-06-15] MEDS ORDERED: METHADONE HCL10 MG ORAL (15:25)
[2018-06-15] MEDS ORDERED: HYDROMORPHONE HC4 M1 ORAL (15:25)
[2018-06-15] MEDS ORDERED: NOVOLOG100 UNITS1 SUBQ (15:25)
[2018-06-15] MEDS ORDERED: PROLIXIN10 MG ORAL (15:25)
[2018-06-15] MEDS ORDERED: GABAPENTIN100 MG ORAL (15:25)
[2018-06-15] MEDS ORDERED: LACTULOSE20 GM/301 ORAL (15:25)
[2018-06-15 16:00] VITALS: BP 143/89
--- NOTE | 2018-06-15 16:02 | NUR ---
NURSE NOTES: Pt informed of discharge back to [facility]. Pt responded that he would not go back there stating "they dropped me from a allie lift". Pt requests placement at another facility. Pt refusing discharge. RN notified case management.
--- NOTE | 2018-06-15 17:05 | NUR ---
*-* CASE MANAGEMENT NOTES *-* [facility] HAS BEEN CALLED AND PATIENT DISCHARGED HAS BEEN APPEALED ON BEHALF OF THE PATIENT S/W SAGE P:[phone] CASE # [id number]
--- NOTE | 2018-06-15 17:45 | Consultation ---
DATE OF CONSULTATION: 06/15/2018 PAIN MANAGEMENT CONSULTATION CONSULTING PHYSICIAN: Robby Horton M.D. REFERRING PHYSICIAN: Joao Siu M.D. PHYSICIAN SANDBLASTER STONE: Jeremy Egan CHIEF COMPLAINT: Generalized body pain. HISTORY OF PRESENT ILLNESS: This is a 42-year-old male who is being seen on the Med/Surg floor of [facility] for initial pain management consultation. The patient has been admitted under the care of Dr. Cox, now being covered by Dr. Estevez and Dr. Siu is on the case as well Dr. Endy De La Rosa, surgeon, as well as an Infectious diseases Dr. Mckinney. The patient reports that he has been having chronic pain throughout his body for many years due to multiple injuries and underlying congenital defects, having fusions on his low back and thoracic spine, lumbar spine, and is complaining of pain which is chronic, reporting that he takes methadone 10 mg tablets 3 times a day while in nursing facility as well as well as Dilaudid 4 mg tablets as needed every 4 hours. These were started however the patient has increased pain, which was not relieved with medication and was started on morphine 2 to 4 mg IV every 4 hours as needed which has been adequately helping with his pain at this time. We were consulted so that the patient would have adequate pain control while here in the hospital. PAST MEDICAL HISTORY: Multiple sclerosis, COPD, GERD, quadriplegia. PAST SURGICAL HISTORY: Lumbar and thoracic fusion. SOCIAL HISTORY: Denies smoking tobacco, drinking alcohol, and IV drug abuse. ALLERGIES: Ciprofloxacin, Haldol, risperidone, senna. REVIEW OF SYSTEMS: Denies rash, fever, chills, sweating, dizziness, drowsiness, blurred vision, sore throat, or change in weight. No shortness of breath or chest pain. No nausea, vomiting, diarrhea. No dysuria. He is complaining of generalized body pain. PHYSICAL EXAMINATION: GENERAL: Alert, awake, and oriented. VITAL SIGNS: Blood pressure 137/98, heart rate 98, oxygen saturation is 96%, respirations 18, and temperature degrees Fahrenheit. HEENT: PERRLA. NECK: Range of motion is decreased due to the patient's clinical condition with tenderness to paracervical muscles. No adenopathy. LUNGS: Decreased breath sounds bilaterally. HEART: S1 and S2 Regular. ABDOMEN: Tenderness to palpation. BACK: Range of motion is decreased in flexion and extension with tenderness to paraspinal muscles, trapezius, and rhomboid muscles. Surgical scar noted on the thoracic lumbar spine. EXTREMITIES: Upper and lower extremity range of motion is decreased. No cyanosis. Sensory reduced. Reflexes are not obtainable. No adenopathy. ASSESSMENT AND PLAN: This is a 43-year-old male with paraplegia, neuropathic pain, history of thoracic and lumbar fusion. The patient will be continued on methadone, Dilaudid, and morphine. Will be started on Neurontin 100 mg tablet three times a day with Zanaflex 2 mg tablet twice a day as needed for muscle spasm. The patient was discussed with Dr. Horton and Dr. Horton concurred. We will follow the patient. Thank you very much for the courtesy of this consultation. Robby Horton M.D. MASON Egan DR: Autumn JOB#: [id number] CC:
--- NOTE | 2018-06-15 19:19 | NUR ---
HAND-OFF: Report given to OBED Cifuentes.
--- NOTE | 2018-06-15 19:37 | NUR ---
HAND-OFF: Report given to OBED Woodson.
[2018-06-15 20:00] VITALS: BP 141/93
--- NOTE | 2018-06-15 20:00 | NUR ---
NURSE NOTES: Pt received in bed lowest position, call light within reach but pt unable to use it, he can verbally make his needs known, needs an IV, no c/o pain or signs of distress at the moment. will continue to monitor.
[2018-06-15] MEDS ORDERED: TraZODone 50mg tab ORAL PRN (21:00)
--- NOTE | 2018-06-15 21:26 | General Progress Note ---
Assessment/Plan Problem List: (1) Low back pain ICD Codes: M54.5 - Low back pain SNOMED: 011680609 (2) Intractable back pain ICD Codes: M54.9 - Dorsalgia, unspecified SNOMED: 498228074 (3) Abdominal distension ICD Codes: R14.0 - Abdominal distension (gaseous) SNOMED: 16947356 (4) UTI (urinary tract infection) ICD Codes: N39.0 - Urinary tract infection, site not specified SNOMED: 14072326 Status: progressing Assessment/Plan chronic pain lbp afebrile no sob reviewed chart and labs and meds Subjective ROS Limited/Unobtainable: Yes Allergies: Coded Allergies: CIPROFLOXACIN (Verified Allergy, Unknown, 06/14/18) HALOPERIDOL (Verified Allergy, Unknown, 06/14/18) RISPERIDONE (Verified Allergy, Unknown, 06/14/18) SENNA (Verified Allergy, Unknown, 06/14/18) Objective Last 24 Hour Vital Signs Date Time Temp Pulse Resp B/P (MAP) Pulse Ox O2 Delivery O2 Flow Rate FiO2 06/15/18 16:00 98.2 91 22 143/89 (107) 100 06/15/18 15:51 98.4 06/15/18 12:00 98.4 108 19 146/85 (105) 92 06/15/18 09:00 Room Air 06/15/18 08:00 98.0 99 18 130/80 (97) 96 06/15/18 04:12 97.9 98 18 137/98 (111) 96 06/15/18 00:00 98.2 107 19 130/88 (102) 95 Intake and Output 06/14/18 06/15/18 19:00 07:00 Intake Total 840 ml Output Total 1300 ml Balance -460 ml Intake Oral 840 ml Output Urine Total 1300 ml # Voids 1 # Bowel Movements 2 2 Laboratory Tests 06/15/18 06:20: White Blood Count 7.8, Red Blood Count 5.17, Hemoglobin 14.3, Hematocrit 44.5, Mean Corpuscular Volume 86, Mean Corpuscular Hemoglobin 27.7, Mean Corpuscular Hemoglobin Concent 32.1, Red Cell Distribution Width 15.3H, Platelet Count 323, Mean Platelet Volume 5.8L, Neutrophils (%) (Auto) 66.2, Lymphocytes (%) (Auto) 24.0, Monocytes (%) (Auto) 7.1, Eosinophils (%) (Auto) 1.9, Basophils (%) (Auto ) 0.9, Sodium Level 137, Potassium Level 4.1, Chloride Level 101, Carbon Dioxide Level 25, Anion Gap 11, Blood Urea Nitrogen 18, Creatinine 0.5L, Estimat Glomerular Filtration Rate > 60, Glucose Level 394#H, Calcium Level 9.2 , Total Bilirubin 0.2, Aspartate Amino Transf (AST/SGOT) 19, Alanine Aminotransferase (ALT/SGPT) 39, Alkaline Phosphatase 77, Total Protein 8.2, Albumin 3.0L, Globulin 5.2, Albumin/Globulin Ratio 0.6L, Thyroid Stimulating Hormone (TSH) 1.313 Height (Feet): 5 Height (Inches): 4.00 Weight (Pounds): 186 Cardiovascular: normal rate Respiratory/Chest: lungs clear Abdomen: soft John Estevez MD Jun 15, 2018 21:26
[2018-06-16] VITALS: BP 150/97
[2018-06-16] MEDS: Morphine Sulfate 4mg/ml Inj (IV USE ONLY) IVP PRN ×4 (01:04→18:01)
--- NOTE | 2018-06-16 03:00 | Consultation ---
DATE OF CONSULTATION: 06/15/2018 HISTORY OF PRESENT ILLNESS: The patient is a 42-year-old male patient with urinary tract infection. He is very confused, disorganized, and altered mental status as I walked into the room. The patient apparently has urinary tract infection, has been exhibiting altered mental status and confusion so far throughout hospital course, as well as hyperverbal speech. He continued to have the same type of behavior. CHIEF COMPLAINT: "I am not schizophrenic, but I need to be back on my Prolixin, I don't take any psychotics but I want Prolixin, that works for me for my PTSD." I tried to explain the patient that Prolixin is a good antipsychotic medication, he seemed to want to argue about it and seemed to have no insight into his cognitive condition. He was actually very disorganized and confused and also hyperverbal. PAST MEDICAL HISTORY: He has a history of low back pain, abdominal distention, urinary tract infection. ALLERGIES: Haldol, risperidone, and ciprofloxacin. PSYCHOTROPIC MEDICATIONS: On admission, Prolixin 2.5 mg twice a day, melatonin 3 mg at bedtime, trazodone 50 mg p.o. at bedtime p.r.n. insomnia. SUBSTANCE ABUSE HISTORY: Denies drugs or alcohol use. FAMILY PSYCHIATRIC HISTORY: Denies. PAIN ASSESSMENT: . DEVELOPMENTAL PROBLEMS: Denies. SOCIAL HISTORY: The patient lives in [facility]. Financially supported by [employer] and Medicare. PSYCHIATRIC HISTORY: Paranoid schizophrenia, rule out schizoaffective bipolar type. He has had previous psychiatric admissions. STRENGTHS: He is motivated to get better. He is healthy. WEAKNESSES: He is impulsive and minimal support system. MENTAL STATUS EXAMINATION: This is a 42-year-old male patient. Appearance is disheveled. Attitude, irritable and agitated. Affect is labile. Intellect poor because he does not know current events, does not know the last four presidents. Mood depressed and anxious. Motor activity, psychomotor agitation. Attention span is poor because he cannot do serial 7's or spell world backwards. Orientation x2. He is alert to person and place, but not to time and situation. Speech is nonsensical. Thought process, disorganized and illogical. Thought content, he has auditory hallucinations and paranoid delusions. Perception is poor because of auditory hallucinations and paranoid delusions. Abstract reasoning is poor because he does not understand proverbs and has concrete thinking. Insight is poor because he does not have insight into his psychiatric condition. Judgment is poor because he cannot make clear medical decisions for himself. He denies any current suicidal or homicidal ideation at this time. Short-term memory, 3/3 word recall after 5-minute delay with good short-term memory. Long-term memory is intact based on the knowledge of long-term events in his life such as high school that he went to. Gait is normal. No abnormal movements. There is no history of . DIAGNOSES: 1. Paranoid schizophrenia with acute exacerbation. 2. Medical includes urinary tract infection, dehydration, low back pain, abdominal distention. PLAN: Start the patient on Prolixin 2.5 mg twice a day, trazodone 50 mg at bedtime p.r.n. Twenty minutes of cognitive behavioral therapy was provided to help him identify his automatic negative thoughts and help him convert those negative thoughts to more positive thinking to reduce depression, anxiety, and mood lability and also help him have more adaptive behavioral pattern. Chart is reviewed and discussed with staff. Seen and assessed at bedside. I would like to thank Dr. Srini Cox for this interesting consultation. Rosalino Caraballo M.D. DR: Joi JOB#: [id number] CC:
--- NOTE | 2018-06-16 05:45 | NUR ---
NURSE NOTES: Pt refused to be cleaned stating to come back and if he is still sleeping do not wake him up. Will endorse to AM nurse.
[2018-06-16] MEDS: NovoLOG Insulin Flexpen SUBQ SCH ×4 (05:56→20:53)
--- NOTE | 2018-06-16 07:33 | NUR ---
HAND-OFF: Report given to OBED Alvarado.
--- NOTE | 2018-06-16 07:36 | NUR ---
NURSE NOTES: RN received pt resting in bed. No s/s of acute distress or SOB. Bed in low, locked position. Call light within reach. Will continue plan of care.
[2018-06-16 07:44] LABS: BASOPHILS % (AUTO) 1.2 % (0.0-2.0); EOSINOPHILS % (AUTO) 2.2 % (0.0-3.0); HEMATOCRIT 43.8 % (42.0-52.0); HEMOGLOBIN 14.2 G/DL (14.2-18.0); LYMPHOCYTES % (AUTO) 36.8 % (20.0-45.0); MEAN CORPUSCULAR VOLUME 86 FL (80-99); MONOCYTES % (AUTO) 9.4 % (1.0-10.0); NEUTROPHILS % (AUTO) 50.5 % (45.0-75.0); PLATELET COUNT 268 K/UL (150-450); RED CELL DISTRIBUTION WIDTH 14.5 % (11.6-14.8); WHITE BLOOD COUNT 8.2 K/UL (4.8-10.8)
[2018-06-16 08:00] VITALS: BP 118/85
[2018-06-16 08:05] LABS: ANION GAP 12 mmol/L (5-15); BLOOD UREA NITROGEN 15 mg/dL (7-18); CALCIUM 8.9 MG/DL (8.5-10.1); CARBON DIOXIDE 24 MMOL/L (21-32); CHLORIDE 99 MMOL/L (98-107); CREATININE 0.3 MG/DL (0.55-1.30); POTASSIUM 4.6 MMOL/L (3.5-5.1); SODIUM 135 MMOL/L (136-145)
[2018-06-16] MEDS: Docusate 100mg cap ORAL SCH ×3 (08:54→18:02)
[2018-06-16] MEDS: Lactulose 20gm/30ml UDC ORAL SCH ×3 (08:55→18:00)
[2018-06-16] MEDS: Heparin 5000 units/ml inj SUBQ SCH ×2 (08:55→20:43)
[2018-06-16] MEDS ORDERED: Fleet's Mineral Oil Enema RECTAL SCH (09:00)
--- NOTE | 2018-06-16 09:05 | Infectious Diseases Prog Note ---
Assessment/Plan Assessment/Plan 43 yo male with PMHx of Spina bifida, COPD, DM, and Schizophrenia who presented to the ED on 06/13/18 after a fall. Positive urine Cx - Likely colonizer given clinical state Suprapubic cath UA positive UCx 06/13/18 - Proteus and another GNR Patient refusing Abx Leg wounds Do not appear ot be infected Spina bifida COPD DM Schizophrenia Plan - Monitor clinically off abx - Monitor CBC and temps - wound care We will continue to follow the patient during this hospitalization. Subjective Allergies: Coded Allergies: CIPROFLOXACIN (Verified Allergy, Unknown, 06/14/18) HALOPERIDOL (Verified Allergy, Unknown, 06/14/18) RISPERIDONE (Verified Allergy, Unknown, 06/14/18) SENNA (Verified Allergy, Unknown, 06/14/18) Subjective ROJAS No Leukoctyosis or fever Objective Vital Signs Last 24 Hour Vital Signs Date Time Temp Pulse Resp B/P (MAP) Pulse Ox O2 Delivery O2 Flow Rate FiO2 06/16/18 08:00 98.1 90 18 118/85 (96) 97 06/16/18 00:00 97.6 18 150/97 (114) 99 06/15/18 21:00 Room Air 06/15/18 20:00 97.9 90 18 141/93 (109) 96 06/15/18 16:00 98.2 91 22 143/89 (107) 100 06/15/18 15:51 98.4 06/15/18 12:00 98.4 108 19 146/85 (105) 92 Height (Feet): 5 Height (Inches): 4.00 Weight (Pounds): 186 Objective Gen: NAD HEENT: NCAT, MMM, EOMI LUNGS: CTAB, No W CARDS: RRR, S1, S2, No M/R/G, ABD: Soft, NT, ND, + BS NEURO: A/O x 4 Microbiology Date/Time Source Procedure Growth Status 06/14/18 05:30 Nasal Nares MRSA Culture - Final NO METHICILLIN RESISTANT STAPH AUREUS... Complete 06/14/18 02:05 Urine,Clean Catch Urine Culture - Preliminary Proteus Mirabilis Gram Negative Bacillus 2 Resulted 06/14/18 05:30 Rectum VRE Culture - Final NO VANCOMYCIN RESISTANT ENTEROCOCCUS ... Complete Laboratory Tests Test 06/16/18 06:06 White Blood Count 8.2 K/UL (4.8-10.8) Red Blood Count 5.10 M/UL (4.70-6.10) Hemoglobin 14.2 G/DL (14.2-18.0) Hematocrit 43.8 % (42.0-52.0) Mean Corpuscular Volume 86 FL (80-99) Mean Corpuscular Hemoglobin 27.8 PG (27.0-31.0) Mean Corpuscular Hemoglobin Concent 32.4 G/DL (32.0-36.0) Red Cell Distribution Width 14.5 % (11.6-14.8) Platelet Count 268 K/UL (150-450) Mean Platelet Volume 6.0 FL (6.5-10.1) L Neutrophils (%) (Auto) 50.5 % (45.0-75.0) Lymphocytes (%) (Auto) 36.8 % (20.0-45.0) Monocytes (%) (Auto) 9.4 % (1.0-10.0) Eosinophils (%) (Auto) 2.2 % (0.0-3.0) Basophils (%) (Auto) 1.2 % (0.0-2.0) Prothrombin Time 10.8 SEC (9.30-11.50) Prothromb Time International Ratio 1.0 (0.9-1.1) Activated Partial Thromboplast Time 29 SEC (23-33) Sodium Level 135 MMOL/L (136-145) L Potassium Level 4.6 MMOL/L (3.5-5.1) Chloride Level 99 MMOL/L (98-107) Carbon Dioxide Level 24 MMOL/L (21-32) Anion Gap 12 mmol/L (5-15) Blood Urea Nitrogen 15 mg/dL (7-18) Creatinine 0.3 MG/DL (0.55-1.30) L Estimat Glomerular Filtration Rate > 60 mL/min (>60) Glucose Level 249 MG/DL (74-106) #H Calcium Level 8.9 MG/DL (8.5-10.1) Current Medications Medications (Trade) Dose Ordered Sig/Trevin Route PRN Reason Start Time Stop Time Status Last Admin Dose Admin Acetaminophen (Tylenol) 650 mg Q4H PRN ORAL fever 06/14/18 10:00 07/14/18 09:59 Al Hydroxide/Mg Hydroxide (Mylanta II) 30 ml Q6H PRN ORAL dyspepsia 06/14/18 10:00 07/14/18 09:59 Dextrose (Dextrose 50%) 25 ml Q30M PRN IV Hypoglycemia 06/15/18 11:15 07/15/18 11:14 Dextrose (Dextrose 50%) 50 ml Q30M PRN IV Hypoglycemia 06/15/18 11:15 07/15/18 11:14 Docusate Sodium (Colace) 100 mg THREE TIMES A DAY ORAL 06/14/18 18:00 07/14/18 17:59 06/16/18 08:54 Fluphenazine HCl (Prolixin) 5 mg DAILY ORAL 06/16/18 09:00 07/16/18 08:59 06/16/18 08:54 Gabapentin (Neurontin) 100 mg BID ORAL 06/15/18 09:45 07/15/18 09:44 06/16/18 08:54 Heparin Sodium (Porcine) (Heparin 5000 units/ml) 5,000 units EVERY 12 HOURS SUBQ 06/14/18 21:00 07/14/18 20:59 06/16/18 08:55 Hydromorphone HCl (Dilaudid) 4 mg Q4H PRN ORAL pain>7 06/14/18 13:30 06/21/18 13:29 06/15/18 23:46 Insulin Aspart (NovoLOG) BEFORE MEALS AND HS SUBQ 06/15/18 11:30 07/15/18 11:29 06/16/18 05:56 Lactulose (Cephulac) 30 gm THREE TIMES A DAY ORAL 06/14/18 18:00 07/14/18 17:59 06/16/18 08:55 Lorazepam (Ativan 2mg/ml 1ml) 0.5 mg Q4H PRN IV For Anxiety 06/14/18 10:00 06/21/18 09:59 Methadone HCl (Methadone HCl) 10 mg EVERY 8 HOURS ORAL 06/14/18 14:00 06/21/18 13:59 06/16/18 05:52 Mineral Oil (Fleet's Mineral Oil Enema) 133 ml EVERY OTHER DAY RECTAL 06/16/18 09:00 07/16/18 08:59 Morphine Sulfate (Morphine Sulfate) 2 mg Q4H PRN IVP For Pain -6 06/14/18 10:00 06/21/18 09:59 06/15/18 08:46 Morphine Sulfate (Morphine Sulfate) 4 mg Q4H PRN IVP For Pain 7-06/14/18 13:45 06/21/18 13:44 06/16/18 08:54 Ondansetron HCl (Zofran) 4 mg Q6H PRN IVP Nausea & Vomiting 06/14/18 10:00 07/14/18 09:59 Polyethylene Glycol (Miralax) 17 gm HSPRN PRN ORAL Constipation 06/14/18 10:00 07/14/18 09:59 06/14/18 13:14 Tizanidine HCl (Zanaflex) 2 mg Q12H PRN ORAL muscle spasm 06/15/18 09:42 07/15/18 09:41 Trazodone HCl (Desyrel) 50 mg QHS PRN ORAL Insomnia 06/15/18 21:00 07/15/18 20:59 06/15/18 22:27 Octavio Mckinney MD Jun 16, 2018 09:05
--- NOTE | 2018-06-16 10:45 | Progress Note ---
DATE: 06/16/2018 SUBJECTIVE: The patient is a 42-year-old male with urinary tract infection, but he also has altered mental status, confusion, and mood lability worsened by stress of his medical illness. That is why, his attending has requested daily psychiatric consultation. MENTAL STATUS EXAMINATION: This is a 42-year-old male. Appearance is disheveled. Attitude, irritable and agitated. Affect, guarded and restricted. Intellect poor. Mood depressed and anxious. Motor activity, psychomotor agitation. Attention span is poor. Orientation x2. Speech is low volume and slurred. Thought process, disorganized and illogical. Thought content, auditory hallucinations and paranoid delusions. Insight and judgment is poor. DIAGNOSIS: Paranoid schizophrenia. PLAN: Treat him with Prolixin 2.5 mg twice a day and trazodone 50 at bedtime. Provide him with 20 minutes of cognitive behavioral therapy to help him identify his automatic negative thoughts and help him convert those negative thoughts to more positive thoughts to reduce depression, anxiety, and mood lability. Chart is reviewed and discussed with staff. Seen and assessed at bedside. Rosalino Caraballo M.D. DR: MOLLY JOB#: [id number] CC:
[2018-06-16] MEDS: LORazepam Inj 2mg/ml 1ml IV PRN ×2 (11:02→22:57)
[2018-06-16 12:00] VITALS: BP 135/89
[2018-06-16] MEDS ORDERED: Fleet's Mineral Oil Enema RECTAL PRN (12:00)
--- NOTE | 2018-06-16 14:02 | Surgery Progress Note ---
Surgery Progress Note Subjective Additional Comments no acute events. states he loves the food here. is ready to go back to facility Objective Last 24 Hour Vital Signs Date Time Temp Pulse Resp B/P (MAP) Pulse Ox O2 Delivery O2 Flow Rate FiO2 06/16/18 13:42 98.8 06/16/18 12:00 98.8 98 20 135/89 (104) 96 06/16/18 09:00 Room Air 06/16/18 08:00 98.1 90 18 118/85 (96) 97 06/16/18 00:00 97.6 18 150/97 (114) 99 06/15/18 21:00 Room Air 06/15/18 20:00 97.9 90 18 141/93 (109) 96 06/15/18 16:00 98.2 91 22 143/89 (107) 100 06/15/18 15:51 98.4 I&O Intake and Output 06/15/18 06/16/18 19:00 07:00 Intake Total 460 ml 500 ml Output Total 1200 ml 1400 ml Balance -740 ml -900 ml Intake Oral 460 ml 500 ml Output Urine Total 1200 ml 1400 ml # Bowel Movements 1 Dressing: other Wound: other Drains: other Cardiovascular: RSR Respiratory: decreased breath sounds Abdomen: soft, distended, present bowel sounds Extremities: no cyanosis Laboratory Tests Test 06/16/18 06:06 White Blood Count 8.2 K/UL (4.8-10.8) Red Blood Count 5.10 M/UL (4.70-6.10) Hemoglobin 14.2 G/DL (14.2-18.0) Hematocrit 43.8 % (42.0-52.0) Mean Corpuscular Volume 86 FL (80-99) Mean Corpuscular Hemoglobin 27.8 PG (27.0-31.0) Mean Corpuscular Hemoglobin Concent 32.4 G/DL (32.0-36.0) Red Cell Distribution Width 14.5 % (11.6-14.8) Platelet Count 268 K/UL (150-450) Mean Platelet Volume 6.0 FL (6.5-10.1) L Neutrophils (%) (Auto) 50.5 % (45.0-75.0) Lymphocytes (%) (Auto) 36.8 % (20.0-45.0) Monocytes (%) (Auto) 9.4 % (1.0-10.0) Eosinophils (%) (Auto) 2.2 % (0.0-3.0) Basophils (%) (Auto) 1.2 % (0.0-2.0) Prothrombin Time 10.8 SEC (9.30-11.50) Prothromb Time International Ratio 1.0 (0.9-1.1) Activated Partial Thromboplast Time 29 SEC (23-33) Sodium Level 135 MMOL/L (136-145) L Potassium Level 4.6 MMOL/L (3.5-5.1) Chloride Level 99 MMOL/L (98-107) Carbon Dioxide Level 24 MMOL/L (21-32) Anion Gap 12 mmol/L (5-15) Blood Urea Nitrogen 15 mg/dL (7-18) Creatinine 0.3 MG/DL (0.55-1.30) L Estimat Glomerular Filtration Rate > 60 mL/min (>60) Glucose Level 249 MG/DL (74-106) #H Calcium Level 8.9 MG/DL (8.5-10.1) Plan Problems: (1) Intractable back pain (2) Abdominal distension Assessment & Plan: distended abdomen, constipated, discomfort had BM after enema feels better now KUB with Findings: Spinal fusion rods are demonstrated. The central portions of these is discontinuous. There is also evidence of extensive bony fusion, probably by bone grafting, of the left side of the lower thoracic and lumbar spine. There is scoliotic deformity. These have extensions into the iliac bones bilaterally. Bowel gas pattern demonstrates considerable gas in nondilated colon. No definite gaseous distention of large or small bowel. There is questionable hepatosplenomegaly okay for diet will monitor exam thank you will follow with recs (3) Low back pain (4) Paraplegia (5) UTI (urinary tract infection) Assessment & Plan: suprapubic catherter labs noted cont abx (6) Decubitus skin ulcer Assessment & Plan: right ischium with resolving stage 3 decubitus ulcer. periwound with stable scab. no drainage. mild erythema resolving sacral decubitus ulcer without open area at this time. apply skin protectant and therahoney to right ischial wound, apply foam dressing , daily turn q2h off load heels with pillow heel protectors air soft mattress Benyamini,Endy Jun 16, 2018 14:02
--- NOTE | 2018-06-16 14:12 | NUR ---
CHARGE NURSE NOTES: SPOKE WITH JIM MEDINA, PER HIM, NO BEDS AVAILABLE AT THIS TIME.
[2018-06-16 16:00] VITALS: BP 119/88
--- NOTE | 2018-06-16 17:02 | NUR ---
NURSE NOTES: Pt BS 442; 12 units given. Message left for Dr. iSu, per protocol. Awaiting call back.
--- NOTE | 2018-06-16 17:04 | Pulmonology Progress Note ---
Assessment/Plan Problems: (1) UTI (urinary tract infection) (2) Intractable back pain (3) Paraplegia (4) Decubitus skin ulcer Assessment/Plan wound care ID to see no new complains doing better Subjective ROS Limited/Unobtainable: No Constitutional: Reports: no symptoms HEENT: Repors: no symptoms Respiratory: Reports: no symptoms Allergies: Coded Allergies: CIPROFLOXACIN (Verified Allergy, Unknown, 06/14/18) HALOPERIDOL (Verified Allergy, Unknown, 06/14/18) RISPERIDONE (Verified Allergy, Unknown, 06/14/18) SENNA (Verified Allergy, Unknown, 06/14/18) Objective Last 24 Hour Vital Signs Date Time Temp Pulse Resp B/P (MAP) Pulse Ox O2 Delivery O2 Flow Rate FiO2 06/16/18 13:42 98.8 06/16/18 12:00 98.8 98 20 135/89 (104) 96 06/16/18 09:00 Room Air 06/16/18 08:00 98.1 90 18 118/85 (96) 97 06/16/18 00:00 97.6 18 150/97 (114) 99 06/15/18 21:00 Room Air 06/15/18 20:00 97.9 90 18 141/93 (109) 96 Intake and Output 06/15/18 06/16/18 19:00 07:00 Intake Total 460 ml 500 ml Output Total 1200 ml 1400 ml Balance -740 ml -900 ml Intake Oral 460 ml 500 ml Output Urine Total 1200 ml 1400 ml # Bowel Movements 1 General Appearance: WD/WN HEENT: normocephalic, atraumatic Respiratory/Chest: lungs clear, normal breath sounds Cardiovascular: normal peripheral pulses, normal rate Abdomen: normal bowel sounds, no organomegaly Extremities: no cyanosis Skin: no rash Microbiology Date/Time Source Procedure Growth Status 06/14/18 05:30 Nasal Nares MRSA Culture - Final NO METHICILLIN RESISTANT STAPH AUREUS... Complete 06/14/18 02:05 Urine,Clean Catch Urine Culture - Preliminary Proteus Mirabilis Gram Negative Bacillus 2 Resulted 06/14/18 05:30 Rectum VRE Culture - Final NO VANCOMYCIN RESISTANT ENTEROCOCCUS ... Complete Laboratory Tests 06/16/18 06:06: White Blood Count 8.2, Red Blood Count 5.10, Hemoglobin 14.2, Hematocrit 43.8, Mean Corpuscular Volume 86, Mean Corpuscular Hemoglobin 27.8, Mean Corpuscular Hemoglobin Concent 32.4, Red Cell Distribution Width 14.5, Platelet Count 268, Mean Platelet Volume 6.0L, Neutrophils (%) (Auto) 50.5, Lymphocytes (%) (Auto) 36.8, Monocytes (%) (Auto) 9.4, Eosinophils (%) (Auto) 2.2, Basophils (%) (Auto ) 1.2, Prothrombin Time 10.8, Prothromb Time International Ratio 1.0, Activated Partial Thromboplast Time 29, Sodium Level 135L, Potassium Level 4.6, Chloride Level 99, Carbon Dioxide Level 24, Anion Gap 12, Blood Urea Nitrogen 15, Creatinine 0.3L, Estimat Glomerular Filtration Rate > 60, Glucose Level 249#H, Calcium Level 8.9 Current Medications Medications (Trade) Dose Ordered Sig/Trevin Route PRN Reason Start Time Stop Time Status Last Admin Dose Admin Acetaminophen (Tylenol) 650 mg Q4H PRN ORAL fever 06/14/18 10:00 07/14/18 09:59 Al Hydroxide/Mg Hydroxide (Mylanta II) 30 ml Q6H PRN ORAL dyspepsia 06/14/18 10:00 07/14/18 09:59 Dextrose (Dextrose 50%) 25 ml Q30M PRN IV Hypoglycemia 06/15/18 11:15 07/15/18 11:14 Dextrose (Dextrose 50%) 50 ml Q30M PRN IV Hypoglycemia 06/15/18 11:15 07/15/18 11:14 Docusate Sodium (Colace) 100 mg THREE TIMES A DAY ORAL 06/14/18 18:00 07/14/18 17:59 06/16/18 13:12 Fluphenazine HCl (Prolixin) 5 mg DAILY ORAL 06/16/18 09:00 07/16/18 08:59 06/16/18 08:54 Gabapentin (Neurontin) 100 mg BID ORAL 06/15/18 09:45 07/15/18 09:44 06/16/18 08:54 Heparin Sodium (Porcine) (Heparin 5000 units/ml) 5,000 units EVERY 12 HOURS SUBQ 06/14/18 21:00 07/14/18 20:59 06/16/18 08:55 Hydromorphone HCl (Dilaudid) 4 mg Q4H PRN ORAL pain>7 06/14/18 13:30 06/21/18 13:29 06/15/18 23:46 Insulin Aspart (NovoLOG) BEFORE MEALS AND HS SUBQ 06/15/18 11:30 07/15/18 11:29 06/16/18 16:53 Lactulose (Cephulac) 30 gm THREE TIMES A DAY ORAL 06/14/18 18:00 07/14/18 17:59 06/16/18 13:13 Lorazepam (Ativan 2mg/ml 1ml) 0.5 mg Q4H PRN IV For Anxiety 06/14/18 10:00 06/21/18 09:59 06/16/18 11:02 Methadone HCl (Methadone HCl) 10 mg EVERY 8 HOURS ORAL 06/14/18 14:00 06/21/18 13:59 06/16/18 14:42 Mineral Oil (Fleet's Mineral Oil Enema) 133 ml DAILYPRN PRN RECTAL Constipation 06/16/18 12:00 07/16/18 11:59 Morphine Sulfate (Morphine Sulfate) 2 mg Q4H PRN IVP For Pain 4-6 06/14/18 10:00 06/21/18 09:59 06/15/18 08:46 Morphine Sulfate (Morphine Sulfate) 4 mg Q4H PRN IVP For Pain 7-10 06/14/18 13:45 06/21/18 13:44 06/16/18 13:12 Ondansetron HCl (Zofran) 4 mg Q6H PRN IVP Nausea & Vomiting 06/14/18 10:00 07/14/18 09:59 Polyethylene Glycol (Miralax) 17 gm HSPRN PRN ORAL Constipation 06/14/18 10:00 07/14/18 09:59 06/14/18 13:14 Tizanidine HCl (Zanaflex) 2 mg Q12H PRN ORAL muscle spasm 06/15/18 09:42 07/15/18 09:41 Trazodone HCl (Desyrel) 50 mg QHS PRN ORAL Insomnia 06/15/18 21:00 07/15/18 20:59 06/15/18 22:27 Joao Siu MD Jun 16, 2018 17:04
--- NOTE | 2018-06-16 18:45 | NUR ---
NURSE NOTES: RN left message for Dr. Cox re pt BS 442 - 12 units given. Waiting for call back. Addendum: 06/16/18 at 1849 by CORRIE MARTINEZ RN NURSE NOTES: RN informed Dr. Estevez of pt's elevated BS. Per Dr. Estevez RN to notify Dr. Cox.
--- NOTE | 2018-06-16 19:26 | NUR ---
NURSE NOTES: RN left 2nd message for Dr. Cox. Dr. Cox replied to contact Dr. Estevez. OBED Woodson, and charge nurse made aware.
--- NOTE | 2018-06-16 19:28 | NUR ---
HAND-OFF: Report given to OBED Woodson.
--- NOTE | 2018-06-16 19:51 | NUR ---
NURSE NOTES: Pt received in bed at lowest position, IV intact, no c/o pain or signs of distress, able to make needs known, calls out of the room when in need of assistance, will continue to monitor.
[2018-06-16 20:00] VITALS: BP 129/87
[2018-06-16] MEDS: Morphine Sulfate 2mg/ml Inj(IV/IM USE ONLY) IVP PRN (20:44)
--- NOTE | 2018-06-16 21:26 | General Progress Note ---
Assessment/Plan Problem List: (1) Low back pain ICD Codes: M54.5 - Low back pain SNOMED: 231877229 (2) Intractable back pain ICD Codes: M54.9 - Dorsalgia, unspecified SNOMED: 389867475 (3) Abdominal distension ICD Codes: R14.0 - Abdominal distension (gaseous) SNOMED: 17434828 (4) UTI (urinary tract infection) ICD Codes: N39.0 - Urinary tract infection, site not specified SNOMED: 32617839 Status: progressing Assessment/Plan afebrile no wheezing no acute events vitals stable reviewed chart and labs and meds Subjective ROS Limited/Unobtainable: Yes Allergies: Coded Allergies: CIPROFLOXACIN (Verified Allergy, Unknown, 06/14/18) HALOPERIDOL (Verified Allergy, Unknown, 06/14/18) RISPERIDONE (Verified Allergy, Unknown, 06/14/18) SENNA (Verified Allergy, Unknown, 06/14/18) Objective Last 24 Hour Vital Signs Date Time Temp Pulse Resp B/P (MAP) Pulse Ox O2 Delivery O2 Flow Rate FiO2 06/16/18 18:31 98.8 06/16/18 16:00 98.8 107 18 119/88 (98) 98 06/16/18 12:00 98.8 98 20 135/89 (104) 96 06/16/18 09:00 Room Air 06/16/18 08:00 98.1 90 18 118/85 (96) 97 06/16/18 00:00 97.6 18 150/97 (114) 99 Intake and Output 06/15/18 06/16/18 19:00 07:00 Intake Total 460 ml 500 ml Output Total 1200 ml 1400 ml Balance -740 ml -900 ml Intake Oral 460 ml 500 ml Output Urine Total 1200 ml 1400 ml # Bowel Movements 1 Laboratory Tests 06/16/18 06:06: White Blood Count 8.2, Red Blood Count 5.10, Hemoglobin 14.2, Hematocrit 43.8, Mean Corpuscular Volume 86, Mean Corpuscular Hemoglobin 27.8, Mean Corpuscular Hemoglobin Concent 32.4, Red Cell Distribution Width 14.5, Platelet Count 268, Mean Platelet Volume 6.0L, Neutrophils (%) (Auto) 50.5, Lymphocytes (%) (Auto) 36.8, Monocytes (%) (Auto) 9.4, Eosinophils (%) (Auto) 2.2, Basophils (%) (Auto ) 1.2, Prothrombin Time 10.8, Prothromb Time International Ratio 1.0, Activated Partial Thromboplast Time 29, Sodium Level 135L, Potassium Level 4.6, Chloride Level 99, Carbon Dioxide Level 24, Anion Gap 12, Blood Urea Nitrogen 15, Creatinine 0.3L, Estimat Glomerular Filtration Rate > 60, Glucose Level 249#H, Calcium Level 8.9 Height (Feet): 5 Height (Inches): 4.00 Weight (Pounds): 186 Cardiovascular: normal rate Abdomen: soft John Estevez MD Jun 16, 2018 21:26
[2018-06-17] VITALS: BP 127/98
[2018-06-17] MEDS: Morphine Sulfate 4mg/ml Inj (IV USE ONLY) IVP PRN ×6 (01:07→22:10)
[2018-06-17 04:00] VITALS: BP 134/94
[2018-06-17] MEDS: NovoLOG Insulin Flexpen SUBQ SCH ×4 (05:32→20:37)
--- NOTE | 2018-06-17 06:25 | NUR ---
NURSE NOTES: Left message for Dr. May, pt positive ESBL urine.
--- NOTE | 2018-06-17 06:39 | NUR ---
NURSE NOTES: Dr. Mckinney returned phone call about ESBL urine, no new orders.
--- NOTE | 2018-06-17 07:02 | NUR ---
HAND-OFF: Report given to OBED Jo. Endorsed notification of ESBL urine and no new orders per MD Constable
--- NOTE | 2018-06-17 07:41 | NUR ---
NURSE NOTES: Received patient from Vivi CLAY, patient is up in bed eating breakfast, no distress noted, bed is locked and in lowest position, call light within reach, will continue to monitor.
[2018-06-17 08:00] VITALS: BP 121/87
[2018-06-17] MEDS: Lactulose 20gm/30ml UDC ORAL SCH ×4 (08:43→18:00)
[2018-06-17] MEDS: Docusate 100mg cap ORAL SCH ×3 (08:46→18:00)
[2018-06-17] MEDS: Heparin 5000 units/ml inj SUBQ SCH ×2 (08:46→20:32)
[2018-06-17] MEDS: LORazepam Inj 2mg/ml 1ml IV PRN (08:47)
--- NOTE | 2018-06-17 11:26 | General Progress Note ---
Assessment/Plan Assessment/Plan (1) Paraplegia (2) H/o Thoracic and Lumbar fusion (3) Neuropathic pain Pt will be continued on Methadone, Morphine and Dilaudid. D/w Dr. Horton and he concurred. Subjective Date patient seen: Jun 17, 2018 Time patient seen: 10:15 - am Allergies: Coded Allergies: CIPROFLOXACIN (Verified Allergy, Unknown, 06/14/18) HALOPERIDOL (Verified Allergy, Unknown, 06/14/18) RISPERIDONE (Verified Allergy, Unknown, 06/14/18) SENNA (Verified Allergy, Unknown, 06/14/18) Subjective REVIEW OF SYSTEMS: Denies rash, fever, chills, sweating, dizziness, drowsiness, blurred vision, sore throat, or change in weight. No shortness of breath or chest pain. No nausea, vomiting, diarrhea. No dysuria. He is complaining of generalized body pain. SUBJECTIVE: Patient is in bed and reports that his pain has been tolerated on the Methadone, Morphine and Dilaudid. No new complaints at this time. Objective Last 24 Hour Vital Signs Date Time Temp Pulse Resp B/P (MAP) Pulse Ox O2 Delivery O2 Flow Rate FiO2 06/17/18 10:24 97.6 06/17/18 08:15 Room Air 06/17/18 08:00 98.8 91 19 121/87 (98) 98 06/17/18 04:00 97.6 97 20 134/94 (107) 99 06/17/18 00:00 97.7 113 22 127/98 (108) 98 06/16/18 21:00 Room Air 06/16/18 20:00 97.6 107 20 129/87 (101) 98 06/16/18 16:00 98.8 107 18 119/88 (98) 98 06/16/18 12:00 98.8 98 20 135/89 (104) 96 Intake and Output 06/16/18 06/17/18 18:59 06:59 Intake Total 1200 ml 760 ml Output Total 1200 ml 950 ml Balance 0 ml -190 ml Intake Oral 760 ml Other 1200 ml Output Urine Total 1200 ml 950 ml # Bowel Movements 1 Height (Feet): 5 Height (Inches): 4.00 Weight (Pounds): 186 Objective GENERAL: Alert, awake, and oriented. LUNGS: Decreased breath sounds bilaterally. HEART: S1 and S2 Regular. ABDOMEN: Tenderness to palpation. EXTREMITIES: No cyanosis. NEURO: No changes. Larry Mi Jun 17, 2018 11:26
[2018-06-17 12:00] VITALS: BP 145/75
--- NOTE | 2018-06-17 12:00 | NUR ---
RN contacted Dr. Rossi regarding FSBS greater than 400, new orders obtained and carried out, will continue to monitor.
--- NOTE | 2018-06-17 13:45 | Surgery Progress Note ---
Surgery Progress Note Subjective Additional Comments no acute events. comfortable. Objective Last 24 Hour Vital Signs Date Time Temp Pulse Resp B/P (MAP) Pulse Ox O2 Delivery O2 Flow Rate FiO2 06/17/18 10:24 97.6 06/17/18 08:15 Room Air 06/17/18 08:00 98.8 91 19 121/87 (98) 98 06/17/18 04:00 97.6 97 20 134/94 (107) 99 06/17/18 00:00 97.7 113 22 127/98 (108) 98 06/16/18 21:00 Room Air 06/16/18 20:00 97.6 107 20 129/87 (101) 98 06/16/18 16:00 98.8 107 18 119/88 (98) 98 I&O Intake and Output 06/16/18 06/17/18 18:59 06:59 Intake Total 1200 ml 760 ml Output Total 1200 ml 950 ml Balance 0 ml -190 ml Intake Oral 760 ml Other 1200 ml Output Urine Total 1200 ml 950 ml # Bowel Movements 1 Dressing: dry Wound: clean Drains: other Cardiovascular: RSR Respiratory: clear Abdomen: soft, distended, non-tender, present bowel sounds Extremities: no tenderness, no cyanosis Plan Problems: (1) Intractable back pain (2) Abdominal distension Assessment & Plan: distended abdomen, constipated, discomfort had BM after enema feels better now KUB with Findings: Spinal fusion rods are demonstrated. The central portions of these is discontinuous. There is also evidence of extensive bony fusion, probably by bone grafting, of the left side of the lower thoracic and lumbar spine. There is scoliotic deformity. These have extensions into the iliac bones bilaterally. Bowel gas pattern demonstrates considerable gas in nondilated colon. No definite gaseous distention of large or small bowel. There is questionable hepatosplenomegaly okay for diet will monitor exam thank you will follow with recs (3) Low back pain (4) Paraplegia (5) UTI (urinary tract infection) Assessment & Plan: suprapubic catherter labs noted cont abx (6) Decubitus skin ulcer Assessment & Plan: right ischium with resolving stage 3 decubitus ulcer. periwound with stable scab. no drainage. mild erythema resolving sacral decubitus ulcer without open area at this time. apply skin protectant and therahoney to right ischial wound, apply foam dressing , daily turn q2h off load heels with pillow heel protectors air soft mattress Endy De La Rosa Jun 17, 2018 13:45
[2018-06-17] MEDS ORDERED: Levemir Flexpen SUBQ SCH (14:00)
[2018-06-17] MEDS: metFORMIN 500mg tab ORAL SCH ×2 (14:41→18:09)
[2018-06-17 16:00] VITALS: BP 120/80
[2018-06-17] MEDS ORDERED: NovoLOG Insulin Flexpen SUBQ SCH (17:30)
--- NOTE | 2018-06-17 18:00 | Progress Note ---
DATE: 06/17/2018 SUBJECTIVE: The patient is a 42-year-old male patient with urinary tract infection. He has altered mental status and extreme mood lability worsened by the stress of his medical illness. Increased racing thoughts and pressured speech. MENTAL STATUS EXAMINATION: This is a 42-year-old male. Appearance is disheveled. Attitude, irritable and agitated. Affect, guarded and restricted. Intellect poor. Mood, depressed and anxious. Motor activity, psychomotor agitation. Attention span is poor. Orientation x2. Speech is pressured. Thought process, disorganized and illogical. Insight and judgment is poor. DIAGNOSIS: Paranoid schizophrenia with acute exacerbation. PLAN: Treat this patient with Prolixin 2.5 mg twice a day as well as trazodone 50 at bedtime. Provided him with 20 minutes of cognitive behavioral therapy to help him identify his automatic negative thoughts and help him convert those negative thoughts to more positive thoughts to reduce depression, anxiety, and mood lability and also help him have a more adaptive behavioral pattern. Chart is reviewed and discussed with staff. Seen and assessed in his room. Rosalino Caraballo M.D. DR: TIERRA JOB#: [id number] CC:
--- NOTE | 2018-06-17 18:30 | NUR ---
RN contacted Dr. Rossi regarding FSBS greater than 400, new orders obtained and carried out, will continue to monitor.
--- NOTE | 2018-06-17 19:06 | NUR ---
HAND-OFF: Report given to Kandice CLAY.
--- NOTE | 2018-06-17 19:52 | NUR ---
NURSE NOTES: Pt received in bed at lowest position, c/o pain, able to make needs known, suprapubic catheter draining, will give pain medication and continue to monitor.
[2018-06-17 20:00] VITALS: BP 129/91
[2018-06-17] MEDS: HYDROmorphone 4mg tab ORAL PRN (20:46)
--- NOTE | 2018-06-17 21:45 | General Progress Note ---
Assessment/Plan Problem List: (1) Low back pain ICD Codes: M54.5 - Low back pain SNOMED: 493981206 (2) Intractable back pain ICD Codes: M54.9 - Dorsalgia, unspecified SNOMED: 058133235 (3) Abdominal distension ICD Codes: R14.0 - Abdominal distension (gaseous) SNOMED: 13141650 (4) UTI (urinary tract infection) ICD Codes: N39.0 - Urinary tract infection, site not specified SNOMED: 82031108 Status: stable Assessment/Plan needs fluids dehydration uti is mproving vitals stable reviewed chart and labs and meds Subjective ROS Limited/Unobtainable: Yes Allergies: Coded Allergies: CIPROFLOXACIN (Verified Allergy, Unknown, 06/14/18) HALOPERIDOL (Verified Allergy, Unknown, 06/14/18) RISPERIDONE (Verified Allergy, Unknown, 06/14/18) SENNA (Verified Allergy, Unknown, 06/14/18) Objective Last 24 Hour Vital Signs Date Time Temp Pulse Resp B/P (MAP) Pulse Ox O2 Delivery O2 Flow Rate FiO2 06/17/18 18:35 98.9 06/17/18 16:00 98.9 89 19 120/80 (93) 98 06/17/18 13:22 97.6 06/17/18 12:00 96.8 90 20 145/75 (98) 99 06/17/18 08:15 Room Air 06/17/18 08:00 98.8 91 19 121/87 (98) 98 06/17/18 04:00 97.6 97 20 134/94 (107) 99 06/17/18 00:00 97.7 113 22 127/98 (108) 98 Intake and Output 06/16/18 06/17/18 19:00 07:00 Intake Total 1200 ml 760 ml Output Total 1200 ml 950 ml Balance 0 ml -190 ml Intake Oral 760 ml Other 1200 ml Output Urine Total 1200 ml 950 ml # Bowel Movements 1 Height (Feet): 5 Height (Inches): 4.00 Weight (Pounds): 186 Cardiovascular: normal rate Respiratory/Chest: lungs clear Abdomen: soft John Estevez MD Jun 17, 2018 21:44
[2018-06-18] VITALS: BP 132/80
[2018-06-18] MEDS: LORazepam Inj 2mg/ml 1ml IV PRN ×2 (00:54→09:06)
[2018-06-18] MEDS: Morphine Sulfate 4mg/ml Inj (IV USE ONLY) IVP PRN ×3 (01:57→10:16)
[2018-06-18] MEDS: HYDROmorphone 4mg tab ORAL PRN ×2 (04:41→11:17)
[2018-06-18] MEDS: NovoLOG Insulin Flexpen SUBQ SCH ×2 (06:11→11:41)
--- NOTE | 2018-06-18 07:12 | NUR ---
HAND-OFF: Report given to OBED Hussein.
--- NOTE | 2018-06-18 07:40 | NUR ---
NURSE NOTES: RN received pt in stable condition, no signs of acute distress or SOB. IV asymptomatic and patent. Bed in low, locked position, call light within reach. Will continue to monitor.
[2018-06-18 08:00] VITALS: BP 130/77
--- NOTE | 2018-06-18 08:50 | General Progress Note ---
Assessment/Plan Assessment/Plan (1) Paraplegia (2) H/o Thoracic and Lumbar fusion (3) Neuropathic pain Pt will be continued on Methadone, Morphine and Dilaudid. D/w Dr. Horton and he concurred. Subjective Date patient seen: Jun 18, 2018 Time patient seen: 07:15 - am Allergies: Coded Allergies: CIPROFLOXACIN (Verified Allergy, Unknown, 06/14/18) HALOPERIDOL (Verified Allergy, Unknown, 06/14/18) RISPERIDONE (Verified Allergy, Unknown, 06/14/18) SENNA (Verified Allergy, Unknown, 06/14/18) Subjective REVIEW OF SYSTEMS: Denies rash, fever, chills, sweating, dizziness, drowsiness, blurred vision, sore throat, or change in weight. No shortness of breath or chest pain. No nausea, vomiting, diarrhea. No dysuria. He is complaining of generalized body pain. SUBJECTIVE: Patient has been tolerating the pain on the Methadone Dilaudid and Morphine. He has no new complaints at this time. Objective Last 24 Hour Vital Signs Date Time Temp Pulse Resp B/P (MAP) Pulse Ox O2 Delivery O2 Flow Rate FiO2 06/18/18 08:00 98.0 70 18 130/77 (94) 96 06/18/18 00:00 98.1 68 19 132/80 (97) 95 06/17/18 21:00 Room Air 06/17/18 20:00 97.5 97 18 129/91 (104) 95 06/17/18 18:35 98.9 06/17/18 16:00 98.9 89 19 120/80 (93) 98 06/17/18 13:22 97.6 06/17/18 12:00 96.8 90 20 145/75 (98) 99 Intake and Output 06/17/18 06/18/18 19:00 07:00 Intake Total 900 ml Output Total 2550 ml Balance 900 ml -2550 ml Other 900 ml Output Urine Total 2550 ml # Bowel Movements 1 Height (Feet): 5 Height (Inches): 4.00 Weight (Pounds): 186 Objective GENERAL: Alert, awake, and oriented. LUNGS: Decreased breath sounds bilaterally. HEART: S1 and S2 Regular. ABDOMEN: Tenderness to palpation. EXTREMITIES: No cyanosis. NEURO: No changes. Larry Mi Jun 18, 2018 08:50
[2018-06-18] MEDS ORDERED: Levemir Flexpen SUBQ SCH (09:00)
[2018-06-18] MEDS: Lactulose 20gm/30ml UDC ORAL SCH ×2 (09:00→12:28)
[2018-06-18] MEDS: Docusate 100mg cap ORAL SCH ×2 (09:00→12:28)
[2018-06-18] MEDS: metFORMIN 500mg tab ORAL SCH ×2 (09:05→13:07)
[2018-06-18] MEDS: Heparin 5000 units/ml inj SUBQ SCH (09:21)
--- NOTE | 2018-06-18 10:07 | Infectious Diseases Prog Note ---
Assessment/Plan Assessment/Plan 43 yo male with PMHx of Spina bifida, COPD, DM, and Schizophrenia who presented to the ED on 06/13/18 after a fall. Positive urine Cx - Likely colonizer given clinical state Suprapubic cath UA positive UCx 06/13/18 - Proteus and another GNR Patient refusing Abx Leg wounds Do not appear to be infected Spina bifida COPD DM Schizophrenia Plan - Monitor clinically off abx as he is clinically stable - Monitor CBC and temps - wound care We will continue to follow the patient during this hospitalization. Subjective Allergies: Coded Allergies: CIPROFLOXACIN (Verified Allergy, Unknown, 06/14/18) HALOPERIDOL (Verified Allergy, Unknown, 06/14/18) RISPERIDONE (Verified Allergy, Unknown, 06/14/18) SENNA (Verified Allergy, Unknown, 06/14/18) Subjective No Leukoctyosis or fever Objective Vital Signs Last 24 Hour Vital Signs Date Time Temp Pulse Resp B/P (MAP) Pulse Ox O2 Delivery O2 Flow Rate FiO2 06/18/18 08:00 98.0 70 18 130/77 (94) 96 06/18/18 00:00 98.1 68 19 132/80 (97) 95 06/17/18 21:00 Room Air 06/17/18 20:00 97.5 97 18 129/91 (104) 95 06/17/18 18:35 98.9 06/17/18 16:00 98.9 89 19 120/80 (93) 98 06/17/18 13:22 97.6 06/17/18 12:00 96.8 90 20 145/75 (98) 99 Height (Feet): 5 Height (Inches): 4.00 Weight (Pounds): 186 Objective Gen: NAD, sitting up in bed HEENT: NCAT, MMM, EOMI LUNGS: CTAB, No W CARDS: RRR, S1, S2, No M/R/G, ABD: Soft, NT, ND, + BS NEURO: A/O x 4 Current Medications Medications (Trade) Dose Ordered Sig/Trevin Route PRN Reason Start Time Stop Time Status Last Admin Dose Admin Acetaminophen (Tylenol) 650 mg Q4H PRN ORAL fever 06/14/18 10:00 07/14/18 09:59 Al Hydroxide/Mg Hydroxide (Mylanta II) 30 ml Q6H PRN ORAL dyspepsia 4/11/19 10:00 07/14/18 09:59 Dextrose (Dextrose 50%) 25 ml Q30M PRN IV Hypoglycemia 06/15/18 11:15 07/15/18 11:14 Dextrose (Dextrose 50%) 50 ml Q30M PRN IV Hypoglycemia 06/15/18 11:15 07/15/18 11:14 Docusate Sodium (Colace) 100 mg THREE TIMES A DAY ORAL 06/14/18 18:00 07/14/18 17:59 06/17/18 12:22 Fluphenazine HCl (Prolixin) 5 mg DAILY ORAL 06/16/18 09:00 07/16/18 08:59 06/18/18 09:04 Gabapentin (Neurontin) 100 mg BID ORAL 06/15/18 09:45 07/15/18 09:44 06/18/18 09:05 Heparin Sodium (Porcine) (Heparin 5000 units/ml) 5,000 units EVERY 12 HOURS SUBQ 06/14/18 21:00 07/14/18 20:59 06/18/18 09:21 Hydromorphone HCl (Dilaudid) 4 mg Q4H PRN ORAL Severe Breakthru Pain (>7) 06/17/18 21:30 06/21/18 13:29 06/18/18 04:41 Insulin Aspart (NovoLOG) BEFORE MEALS AND HS SUBQ 06/15/18 11:30 07/15/18 11:29 06/18/18 06:11 Insulin Detemir (Levemir) 15 units BID SUBQ 06/18/18 09:00 07/17/18 13:59 06/18/18 09:20 Lactulose (Cephulac) 30 gm THREE TIMES A DAY ORAL 06/14/18 18:00 07/14/18 17:59 06/17/18 12:23 Lorazepam (Ativan 2mg/ml 1ml) 0.5 mg Q4H PRN IV For Anxiety 06/14/18 10:00 06/21/18 09:59 06/18/18 09:06 Metformin HCl (Glucophage) 500 mg TID ORAL 06/17/18 13:00 07/17/18 12:59 06/18/18 09:05 Methadone HCl (Methadone HCl) 10 mg EVERY 8 HOURS ORAL 06/14/18 14:00 06/21/18 13:59 06/18/18 06:54 Mineral Oil (Fleet's Mineral Oil Enema) 133 ml DAILYPRN PRN RECTAL Constipation 06/16/18 12:00 07/16/18 11:59 Morphine Sulfate (Morphine Sulfate) 2 mg Q4H PRN IVP For Pain 4-06/14/18 10:00 06/21/18 09:59 06/16/18 20:44 Morphine Sulfate (Morphine Sulfate) 4 mg Q4H PRN IVP For Pain 7-06/14/18 13:45 06/21/18 13:44 06/18/18 06:12 Ondansetron HCl (Zofran) 4 mg Q6H PRN IVP Nausea & Vomiting 06/14/18 10:00 07/14/18 09:59 Polyethylene Glycol (Miralax) 17 gm HSPRN PRN ORAL Constipation 06/14/18 10:00 07/14/18 09:59 06/14/18 13:14 Tizanidine HCl (Zanaflex) 2 mg Q12H PRN ORAL muscle spasm 06/15/18 09:42 07/15/18 09:41 06/17/18 12:23 Trazodone HCl (Desyrel) 50 mg QHS PRN ORAL Insomnia 06/15/18 21:00 07/15/18 20:59 06/15/18 22:27 Octavio Mckinney MD Jun 18, 2018 10:07
[2018-06-18 12:00] VITALS: BP 138/82
--- NOTE | 2018-06-18 13:11 | Pulmonology Progress Note ---
Assessment/Plan Problems: (1) UTI (urinary tract infection) (2) Intractable back pain (3) Paraplegia (4) Decubitus skin ulcer Assessment/Plan wants to get discharged wound care ID to see no new complains doing better Subjective ROS Limited/Unobtainable: No Constitutional: Reports: no symptoms HEENT: Repors: no symptoms Respiratory: Reports: no symptoms Allergies: Coded Allergies: CIPROFLOXACIN (Verified Allergy, Unknown, 06/14/18) HALOPERIDOL (Verified Allergy, Unknown, 06/14/18) RISPERIDONE (Verified Allergy, Unknown, 06/14/18) SENNA (Verified Allergy, Unknown, 06/14/18) Objective Last 24 Hour Vital Signs Date Time Temp Pulse Resp B/P (MAP) Pulse Ox O2 Delivery O2 Flow Rate FiO2 06/18/18 12:00 98.5 70 20 138/82 (100) 97 06/18/18 11:47 98.0 06/18/18 10:46 98.0 06/18/18 09:00 Room Air 06/18/18 08:00 98.0 70 18 130/77 (94) 96 06/18/18 00:00 98.1 68 19 132/80 (97) 95 06/17/18 21:00 Room Air 06/17/18 20:00 97.5 97 18 129/91 (104) 95 06/17/18 16:00 98.9 89 19 120/80 (93) 98 06/17/18 13:22 97.6 Intake and Output 06/17/18 06/18/18 18:59 06:59 Intake Total 900 ml Output Total 2550 ml Balance 900 ml -2550 ml Other 900 ml Output Urine Total 2550 ml # Bowel Movements 1 General Appearance: WD/WN HEENT: normocephalic, atraumatic Respiratory/Chest: chest wall non-tender, lungs clear, normal breath sounds Cardiovascular: normal peripheral pulses, normal rate Abdomen: normal bowel sounds, soft, non tender Genitourinary: normal external genitalia Skin: no rash 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 Current Medications Medications (Trade) Dose Ordered Sig/Trevin Route PRN Reason Start Time Stop Time Status Last Admin Dose Admin Acetaminophen (Tylenol) 650 mg Q4H PRN ORAL fever 06/14/18 10:00 07/14/18 09:59 Al Hydroxide/Mg Hydroxide (Mylanta II) 30 ml Q6H PRN ORAL dyspepsia 06/14/18 10:00 07/14/18 09:59 Dextrose (Dextrose 50%) 25 ml Q30M PRN IV Hypoglycemia 06/15/18 11:15 07/15/18 11:14 Dextrose (Dextrose 50%) 50 ml Q30M PRN IV Hypoglycemia 06/15/18 11:15 07/15/18 11:14 Docusate Sodium (Colace) 100 mg THREE TIMES A DAY ORAL 06/14/18 18:00 07/14/18 17:59 06/17/18 12:22 Fluphenazine HCl (Prolixin) 5 mg DAILY ORAL 06/16/18 09:00 07/16/18 08:59 06/18/18 09:04 Gabapentin (Neurontin) 100 mg BID ORAL 06/15/18 09:45 07/15/18 09:44 06/18/18 09:05 Heparin Sodium (Porcine) (Heparin 5000 units/ml) 5,000 units EVERY 12 HOURS SUBQ 06/14/18 21:00 07/14/18 20:59 06/18/18 09:21 Hydromorphone HCl (Dilaudid) 4 mg Q4H PRN ORAL Severe Breakthru Pain (>7) 06/17/18 21:30 06/21/18 13:29 06/18/18 11:17 Insulin Aspart (NovoLOG) BEFORE MEALS AND HS SUBQ 06/15/18 11:30 07/15/18 11:29 06/18/18 11:41 Insulin Detemir (Levemir) 15 units BID SUBQ 06/18/18 09:00 07/17/18 13:59 06/18/18 09:20 Lactulose (Cephulac) 30 gm THREE TIMES A DAY ORAL 06/14/18 18:00 07/14/18 17:59 06/17/18 12:23 Lorazepam (Ativan 2mg/ml 1ml) 0.5 mg Q4H PRN IV For Anxiety 06/14/18 10:00 06/21/18 09:59 06/18/18 09:06 Metformin HCl (Glucophage) 500 mg TID ORAL 06/17/18 13:00 07/17/18 12:59 06/18/18 13:07 Methadone HCl (Methadone HCl) 10 mg EVERY 8 HOURS ORAL 06/14/18 14:00 06/21/18 13:59 06/18/18 13:06 Mineral Oil (Fleet's Mineral Oil Enema) 133 ml DAILYPRN PRN RECTAL Constipation 06/16/18 12:00 07/16/18 11:59 Morphine Sulfate (Morphine Sulfate) 2 mg Q4H PRN IVP For Pain 4-06/14/18 10:00 06/21/18 09:59 06/16/18 20:44 Morphine Sulfate (Morphine Sulfate) 4 mg Q4H PRN IVP For Pain 7-06/14/18 13:45 06/21/18 13:44 06/18/18 10:16 Ondansetron HCl (Zofran) 4 mg Q6H PRN IVP Nausea & Vomiting 06/14/18 10:00 07/14/18 09:59 Polyethylene Glycol (Miralax) 17 gm HSPRN PRN ORAL Constipation 06/14/18 10:00 07/14/18 09:59 06/14/18 13:14 Tizanidine HCl (Zanaflex) 2 mg Q12H PRN ORAL muscle spasm 06/15/18 09:42 07/15/18 09:41 06/17/18 12:23 Trazodone HCl (Desyrel) 50 mg QHS PRN ORAL Insomnia 06/15/18 21:00 07/15/18 20:59 06/15/18 22:27 Joao Siu MD Jun 18, 2018 13:11
--- NOTE | 2018-06-18 13:33 | NUR ---
DISCHARGE PLANNED PT. DC TO [facility] SKILLED T- FOR NURSE TO NURSE REPORT [facility] WILL SUPERVISOR ENROBING AT 141
--- NOTE | 2018-06-18 13:40 | Surgery Progress Note ---
Surgery Progress Note Subjective Additional Comments no acute events. comfortable. wants to go back to old facility Objective Last 24 Hour Vital Signs Date Time Temp Pulse Resp B/P (MAP) Pulse Ox O2 Delivery O2 Flow Rate FiO2 06/18/18 12:00 98.5 70 20 138/82 (100) 97 06/18/18 11:47 98.0 06/18/18 10:46 98.0 06/18/18 09:00 Room Air 06/18/18 08:00 98.0 70 18 130/77 (94) 96 06/18/18 00:00 98.1 68 19 132/80 (97) 95 06/17/18 21:00 Room Air 06/17/18 20:00 97.5 97 18 129/91 (104) 95 06/17/18 16:00 98.9 89 19 120/80 (93) 98 I&O Intake and Output 06/17/18 06/18/18 18:59 06:59 Intake Total 900 ml Output Total 2550 ml Balance 900 ml -2550 ml Other 900 ml Output Urine Total 2550 ml # Bowel Movements 1 Dressing: dry Wound: other Drains: other Cardiovascular: RSR Respiratory: clear Abdomen: soft, distended, present bowel sounds Extremities: no cyanosis Plan Problems: (1) Intractable back pain (2) Abdominal distension Assessment & Plan: distended abdomen, constipated, discomfort had BM after enema feels better now KUB with Findings: Spinal fusion rods are demonstrated. The central portions of these is discontinuous. There is also evidence of extensive bony fusion, probably by bone grafting, of the left side of the lower thoracic and lumbar spine. There is scoliotic deformity. These have extensions into the iliac bones bilaterally. Bowel gas pattern demonstrates considerable gas in nondilated colon. No definite gaseous distention of large or small bowel. There is questionable hepatosplenomegaly okay for diet will monitor exam thank you will follow with recs (3) Low back pain (4) Paraplegia Assessment & Plan: DAILY ESTIMATED NEEDS: Needs based on Quadriplegia, wound 65.5kg adj 23-28 kcals/kg 7524-7478 total kcals 1.25-1.5 g protein/kg 82-98 g total protein 25-30 mL/kg 3069-9837 total fluid mLs NUTRITION DIAGNOSIS: 1) Increased protein needs r/t wound healing and h/o quadriplegia as evidenced by pt w/ stage 3 ischial wound and resolving sacral wound. 2) Altered nutrition related lab values r/t diabetes as evidenced by elev BG (270-394) and elev POC (346), Uglu 3+ on adm. CURRENT DIET: Regular PO DIET RECOMMENDATIONS: *Diet change to-> CCHO LOW W/ DOUBLE PROTEIN PORTIONS* ------ ADDITIONAL RECOMMENDATIONS: 1) Wound care: add JIM BID + VIT C 250mg BID + MVI x1 daily 2) Rec long acting insulin for improved BG ->to improve wound healing 3) Check A1C 4) Calibrated bed scale wts / weekly (5) UTI (urinary tract infection) Assessment & Plan: suprapubic catherter labs noted cont abx (6) Decubitus skin ulcer Assessment & Plan: right ischium with resolving stage 3 decubitus ulcer. periwound with stable scab. no drainage. mild erythema resolving sacral decubitus ulcer without open area at this time. apply skin protectant and therahoney to right ischial wound, apply foam dressing , daily turn q2h off load heels with pillow heel protectors air soft mattress Endy De La Rosa Jun 18, 2018 13:40
--- NOTE | 2018-06-18 14:33 | NUR ---
NURSE NOTES: Pt left unit via [facility] for discharge transport. Pt in stable condition; no acute distress or SOB. Belongings accounted for with pt. RN gave report to Ada at [facility]. Ada informed pt is quaparapalegic, allergies to Cipro, Haldol, Risperidone, Senna, POLST and medication list in discharge packet. RN removed IV and arm band prior to departure. Pt verbalized gratitude for car.
--- NOTE | 2018-06-18 16:15 | Progress Note ---
DATE: 06/18/2018 SUBJECTIVE: This is a 42-year-old male patient with urinary tract infection. The patient continues to have some confusion and disorganized thought process, and he is still very hyperverbal. MENTAL STATUS EXAMINATION: This is a 42-year-old male. Appearance is disheveled. Attitude, irritable and agitated. Affect, guarded and restricted. Intellect, poor. Mood, depressed and anxious. Motor activity, psychomotor agitation. Attention span is poor. Orientation x2. Speech is pressured. Thought process, disorganized and illogical. Insight and judgment is poor. DIAGNOSIS: Paranoid schizophrenia, acute exacerbation. PLAN: Continue Prolixin 2.5 mg twice a day as well as trazodone 50 mg nightly. Provided him with 20 minutes of cognitive behavioral therapy to help him identify his automatic negative thoughts and help him convert those negative thoughts to more positive thoughts to reduce depression, anxiety, and suicidality. Chart reviewed and discussed with staff. Rosalino Caraballo M.D. DR: CONSTANZA JOB#: [id number] CC:
--- NOTE | 2018-06-18 19:00 | Consultation ---
DATE OF CONSULTATION: 06/18/2018 ENDOCRINOLOGY CONSULTATION CONSULTING PHYSICIAN: Arden Rossi M.D. REFERRING PHYSICIAN: John Estevez M.D. REASON FOR CONSULTATION: Diabetes management. HISTORY OF PRESENT ILLNESS: The patient is a 42-year-old man with history of paraplegia, spina bifida, bedbound, and with suprapubic catheter, who presented to the emergency room with severe back pain. The patient had a fall and glucose is elevated. Endocrinology was consulted in order to assist in the management of diabetes. ALLERGIES: 1. Ciprofloxacin. 2. Haloperidol. 3. Risperidone. 4. Senna. PAST MEDICAL HISTORY: Schizophrenia. FAMILY HISTORY: Noncontributory. SOCIAL HISTORY: No active smoking, alcohol, or drug use. MEDICATIONS: Reviewed and reconciled. REVIEW OF SYSTEMS: Difficult to obtain. PHYSICAL EXAMINATION: GENERAL: Not cooperative. VITAL SIGNS: Blood pressure is 132/80, pulse 68, temperature 98.1, and respiratory rate 19. HEENT: Pupils are equal and reactive to light. Sclerae are anicteric. NECK: No JVD. HEART: Regular. LUNGS: Clear. ABDOMEN: Positive bowel sounds. EXTREMITIES: Paraplegic. LABORATORY DATA: Sodium 135, potassium 4.6, chloride 99, bicarbonate 24, BUN 15, and creatinine 0.3. Glucose 238. WBC 8, hemoglobin 14, hematocrit 43, and platelet count 268,000. DIAGNOSES: 1. Back pain. 2. Paraplegia. 3. Diabetes, out of control. PLAN: 1. Blood glucose monitoring before meals and at bedtime with NovoLog coverage. 2. Start metformin 500 mg t.i.d. 3. Start Levemir 15 units daily. 4. Further adjustment according to blood glucose values. 5. I will follow the patient closely during hospital stay. Thank you, Dr. Estevez, for the courtesy of this consultation. Arden Rossi M.D. DR: LUCIANO JOB#: [id number] CC: CHANTEL
--- NOTE | 2018-06-20 13:31 | Discharge Summary ---
Discharge Summary Discharge Summary _ DATE OF ADMISSION: 06/14/2018 DATE OF DISCHARGE: 06/18/2018 DISCHARGED BY: Dr Cox REASON FOR ADMISSION: 42 years old male with past medical history of spina bifida, paraplegia, COPD, diabetes mellitus, schizophrenia, presented to emergency department with complaint of severe back pain secondary to fall. Patient reported subjective fever and pain in the suprapubic catheter site. Patient denied chest pain or shortness of breath. In emergency department patient was afebrile with tachycardia. Blood pressure was elevated 165/116. No leukocytosis. Urinalysis was suggestive of urinary tract infection. Stable renal parameters and electrolytes. Glucose 270. Albumin 3.0. Abdominal x-ray revealed no definite acute process. Questionable hepatosplenomegaly. Patient received a dose of antibiotic in the emergency department. Patient admitted for further management. CONSULTANTS: pulmonary Dr. Siu ID specialist Dr. May surgery Dr. De La Rosa psychiatrist Dr. Caraballo endocrinology Dr. Rossi pain specialist Dr. Horton [facility] COURSE: Patient admitted to medical surgical floor. Patient started on empiric antibiotics. Antibiotics provided as per infectious disease specialist recommendation. Urine culture revealed Proteus and E. coli ESBL. Patient refused antibiotics. Infectious disease specialist recommended to monitor clinically off antibiotics , since patient appeared to be clinically stable. Pain management was addressed as per pain specialist recommendation. Sheet Sewer seen and evaluated the patient for diabetes out of control. Patient started on long-acting Levemir and Metformin. Sliding scale of short acting insulin was on board as needed. Further adjustments were made according to blood glucose levels. Patient was counseled on diabetic diet and compliance with medication regimen. Patient will need further optimization of anti-glycemic regimen as outpatient. Psychiatrist followed. Patient was diagnosed with paranoid schizophrenia with acute exacerbation. Psychiatric medication regimen was optimized. Cognitive behavioral therapy provided. General surgeon closely followed for stage III right ischial pressure ulcer, present on admission. Wound care provided as per surgeon recommendation. Continue wound care in the facility. Vendor Relationship Manager recommendation regarding protein supplements implemented in plan of care. Bowel regimen instituted. KUB stable Supportive care provided. Supplemental oxygen provided as needed to keep pulse oximetry above 92%. Pulmonary toilet was on standby as needed. Patient clinically stabilized and was ready for transfer back to long-term facility for continuation of care FINAL DIAGNOSES: Intractable back pain with history of thoracic and lumbar fusion UTI with Proteus and E. coli ESBL Diabetes mellitus out of control Paraplegia Neuropathic pain Paranoid schizophrenia, acute exacerbation Right ischium pressure ulcer stage III, present on admission Abdominal distention DISCHARGE MEDICATIONS: See Medication Reconciliation list. DISCHARGE INSTRUCTIONS: Patient was discharged to the long-term facility. Follow up with medical doctor at the facility. I have been assigned to dictate discharge summary for this account. I was not involved in the patient's management. Claudia Linda NP Jun 20, 2018 13:30
== END 2018-06-18 14:35 | DRG 689 ==
LOC: EDBD 01:17 → EMR 01:30 → 4E 02:09 → EDBEDREQ 02:23
DX: N39.0 Urinary tract infection, site not specified (principal); L89.313 Pressure ulcer of right buttock, stage 3; G82.20 Paraplegia, unspecified; F20.0 Paranoid schizophrenia; Q05.9 Spina bifida, unspecified; Z98.1 Arthrodesis status; B96.4 Proteus (mirabilis) (morganii) as the cause of diseases classified elsewhere; B96.20 Unspecified Escherichia coli [E. coli] as the cause of diseases classified elsewhere; Z16.12 Extended spectrum beta lactamase (ESBL) resistance; G62.9 Polyneuropathy, unspecified; Z91.81 History of falling; Z88.1 Allergy status to other antibiotic agents; Z88.8 Allergy status to other drugs, medicaments and biological substances; J44.9 Chronic obstructive pulmonary disease, unspecified; G35 Multiple sclerosis; K21.9 Gastro-esophageal reflux disease without esophagitis; E86.0 Dehydration; M54.5 Low back pain; R14.0 Abdominal distension (gaseous); E11.65 Type 2 diabetes mellitus with hyperglycemia; K59.00 Constipation, unspecified; Z93.59 Other cystostomy status
CPT/HCPCS: 36415; 74018; 80048; 80053; 81003; 82962; 83690; 84443; 85025; 85610; 85730; 87081; 87086; 87181; 96372; 99285; J1815; S5561

== ENCOUNTER 2018-06-20 20:26 | Inpatient (IN) | payer MEDICARE, OTHER ==
[~2018-06-20] VITALS: Ht 162.6 cm; Wt 91.8 kg
[~2018-06-20 20:26] MED LIST: DESYREL50 MG ORAL; GABAPENTIN100 MG ORAL; HYDROMORPHONE HC4 M1 ORAL; LACTULOSE20 GM/301 ORAL; METHADONE HCL10 MG ORAL; NOVOLOG100 UNITS1 SUBQ; PROLIXIN10 MG ORAL; ZANAFLEX4 MG ORAL
[2018-06-20 20:30] VITALS: BP 146/95
[2018-06-20] MEDS ORDERED: COLACE100 MG ORAL (20:41)
[2018-06-20] MEDS ORDERED: SENNA176 MG/5 M PO (20:41)
[2018-06-20] MEDS ORDERED: GLUCOPHAGE500 MG ORAL (20:59)
[2018-06-20] MEDS ORDERED: LEVEMIR FL100 UNIT/1 SUBQ (20:59)
[2018-06-20] MEDS ORDERED: FLEET ENEMA133 ML RECTAL (20:59)
[2018-06-20] MEDS ORDERED: MILK OF MA400 MG/51 ORAL (20:59)
[2018-06-20] MEDS ORDERED: MONOJECT H100 UNIT/1 SQ (20:59)
[2018-06-20] MEDS ORDERED: NOVOLOG SS (20:59)
[2018-06-20] MEDS ORDERED: Morphine Sulfate 4mg/ml Inj (IV USE ONLY) IVP ONE ×2 (21:00→23:45)
--- NOTE | 2018-06-20 21:14 | Emergency Room Report ---
History of Present Illness General Chief Complaint: Male Urogenital Problems Source: Medical Record Present Illness HPI Patient presents with complaints of bladder cramping and increased pain patient reports that he has not been getting any pain medications recently Denies any neck pain or photophobia denies any chest pain Patient continues to feel weak not able to eat and drink complains of increased nausea as well Denies any rash Allergies: Coded Allergies: CIPROFLOXACIN (Verified Allergy, Unknown, 06/14/18) HALOPERIDOL (Verified Allergy, Unknown, 06/14/18) RISPERIDONE (Verified Allergy, Unknown, 06/14/18) SENNA (Verified Allergy, Unknown, 06/14/18) Patient History Past Medical History: see triage record Pertinent Family History: none Reviewed Nursing Documentation: PMH: Agreed; PSxH: Agreed Nursing Documentation-PMH Hx Cardiac Problems: No Hx COPD: Yes Hx Diabetes: Yes Hx Cancer: No Hx Gastrointestinal Problems: Yes - Reflux Hx Multiple Sclerosis: Yes Review of Systems All Other Systems: negative except mentioned in HPI Physical Exam Vital Signs Date Time Temp Pulse Resp B/P (MAP) Pulse Ox O2 Delivery O2 Flow Rate FiO2 06/20/18 20:22 Room Air Sp02 EP Interpretation: reviewed, normal General Appearance: no apparent distress Head: normocephalic, atraumatic Eyes: bilateral eye PERRL, bilateral eye EOMI ENT: dry mucus membranes Neck: supple Respiratory: lungs clear, no retraction, no accessory muscle use Cardiovascular #1: regular rate, rhythm Gastrointestinal: soft - However some discomfort over the suprapubic area Musculoskeletal: other - Patient is paraplegic in both lower extremities Neurologic: alert, oriented x3, responsive Skin: no rash Lymphatic: no adenopathy Medical Decision Making Diagnostic Impression: Primary Impression: Uncontrolled diabetes mellitus Additional Impressions: Bladder spasm Intractable back pain Paraplegia Lactic acid acidosis ER Course Multiple differentials and consideration patient is critical requiring multiple imaging and blood work Patient shows significant acidosis Also showing evidence of bacteria in the urine Patient has a complex UTI previous culture reveals sensitivity to amikacin This is ordered through the emergency room patient receiving further hydration and requires inpatient care Labs Test 06/20/18 20:52 06/20/18 21:41 06/20/18 22:48 06/21/18 04:00 White Blood Count 14.3 K/UL (4.8-10.8) 14.8 K/UL (4.8-10.8) Red Blood Count 5.77 M/UL (4.70-6.10) 5.27 M/UL (4.70-6.10) Hemoglobin 15.9 G/DL (14.2-18.0) 14.8 G/DL (14.2-18.0) Hematocrit 48.7 % (42.0-52.0) 44.9 % (42.0-52.0) Mean Corpuscular Volume 84 FL (80-99) 85 FL (80-99) Mean Corpuscular Hemoglobin 27.5 PG (27.0-31.0) 28.1 PG (27.0-31.0) Mean Corpuscular Hemoglobin Concent 32.6 G/DL (32.0-36.0) 33.0 G/DL (32.0-36.0) Red Cell Distribution Width 14.8 % (11.6-14.8) 15.2 % (11.6-14.8) Platelet Count 372 K/UL (150-450) 332 K/UL (150-450) Mean Platelet Volume 5.8 FL (6.5-10.1) 5.8 FL (6.5-10.1) Neutrophils (%) (Auto) 73.4 % (45.0-75.0) 69.0 % (45.0-75.0) Lymphocytes (%) (Auto) 18.8 % (20.0-45.0) 24.0 % (20.0-45.0) Monocytes (%) (Auto) 6.3 % (1.0-10.0) 5.3 % (1.0-10.0) Eosinophils (%) (Auto) 0.6 % (0.0-3.0) 0.6 % (0.0-3.0) Basophils (%) (Auto) 0.9 % (0.0-2.0) 1.0 % (0.0-2.0) Sodium Level 129 MMOL/L (136-145) 134 MMOL/L (136-145) Potassium Level 4.2 MMOL/L (3.5-5.1) 3.8 MMOL/L (3.5-5.1) Chloride Level 91 MMOL/L (98-107) 98 MMOL/L (98-107) Carbon Dioxide Level 19 MMOL/L (21-32) 22 MMOL/L (21-32) Anion Gap 19 mmol/L (5-15) 14 mmol/L (5-15) Blood Urea Nitrogen 16 mg/dL (7-18) 15 mg/dL (7-18) Creatinine 0.8 MG/DL (0.55-1.30) 0.4 MG/DL (0.55-1.30) Estimat Glomerular Filtration Rate > 60 mL/min (>60) > 60 mL/min (>60) Glucose Level 633 MG/DL (74-106) 395 MG/DL (74-106) Lactic Acid Level 6.10 mmol/L (0.4-2.0) 5.10 mmol/L (0.66-2.22) Calcium Level 9.5 MG/DL (8.5-10.1) 8.6 MG/DL (8.5-10.1) Total Bilirubin 0.2 MG/DL (0.2-1.0) 0.2 MG/DL (0.2-1.0) Aspartate Amino Transf (AST/SGOT) 15 U/L (15-37) 16 U/L (15-37) Alanine Aminotransferase (ALT/SGPT) 48 U/L (12-78) 40 U/L (12-78) Alkaline Phosphatase 94 U/L (46-116) 78 U/L (46-116) Total Creatine Kinase 32 U/L (26-308) Creatine Kinase MB 0.8 NG/ML (0.0-3.6) Creatine Kinase MB Relative Index 2.5 Troponin I 0.000 ng/mL (0.000-0.056) Pro-B-Type Natriuretic Peptide 210 pg/mL (0-125) Total Protein 9.0 G/DL (6.4-8.2) 8.0 G/DL (6.4-8.2) Albumin 3.4 G/DL (3.4-5.0) 3.1 G/DL (3.4-5.0) Globulin 5.6 g/dL 4.9 g/dL Albumin/Globulin Ratio 0.6 (1.0-2.7) 0.6 (1.0-2.7) Lipase 773 U/L (73-393) Urine Color Pale yellow Urine Appearance Slightly cloudy Urine pH 7 (4.5-8.0) Urine Specific [place] 1.005 (1.005-1.035) Urine Protein 3+ (NEGATIVE) Urine Glucose (UA) 4+ (NEGATIVE) Urine Ketones Negative (NEGATIVE) Urine Blood 4+ (NEGATIVE) Urine Nitrite Positive (NEGATIVE) Urine Bilirubin Negative (NEGATIVE) Urine Urobilinogen Normal MG/DL (0.0-1.0) Urine Leukocyte Esterase 3+ (NEGATIVE) Urine RBC 10-15 /HPF (0 - 0) Urine WBC 5-10 /HPF (0 - 0) Urine Squamous Epithelial Cells None /LPF (NONE/OCC) Urine Bacteria Few /HPF (NONE) Test 06/22/18 04:50 White Blood Count 9.9 K/UL (4.8-10.8) Red Blood Count 4.51 M/UL (4.70-6.10) Hemoglobin 12.6 G/DL (14.2-18.0) Hematocrit 38.5 % (42.0-52.0) Mean Corpuscular Volume 85 FL (80-99) Mean Corpuscular Hemoglobin 28.0 PG (27.0-31.0) Mean Corpuscular Hemoglobin Concent 32.9 G/DL (32.0-36.0) Red Cell Distribution Width 15.3 % (11.6-14.8) Platelet Count 263 K/UL (150-450) Mean Platelet Volume 6.6 FL (6.5-10.1) Neutrophils (%) (Auto) 62.0 % (45.0-75.0) Lymphocytes (%) (Auto) 28.7 % (20.0-45.0) Monocytes (%) (Auto) 6.4 % (1.0-10.0) Eosinophils (%) (Auto) 1.9 % (0.0-3.0) Basophils (%) (Auto) 1.1 % (0.0-2.0) Sodium Level 134 MMOL/L (136-145) Potassium Level 4.1 MMOL/L (3.5-5.1) Chloride Level 100 MMOL/L (98-107) Carbon Dioxide Level 22 MMOL/L (21-32) Anion Gap 12 mmol/L (5-15) Blood Urea Nitrogen 28 mg/dL (7-18) Creatinine 0.5 MG/DL (0.55-1.30) Estimat Glomerular Filtration Rate > 60 mL/min (>60) Glucose Level 227 MG/DL (74-106) Lactic Acid Level 1.00 mmol/L (0.4-2.0) Uric Acid 8.7 MG/DL (2.6-7.2) Calcium Level 7.9 MG/DL (8.5-10.1) Phosphorus Level 5.7 MG/DL (2.5-4.9) Magnesium Level 1.7 MG/DL (1.8-2.4) Total Bilirubin 0.2 MG/DL (0.2-1.0) Gamma Glutamyl Transpeptidase 32 U/L (5-85) Aspartate Amino Transf (AST/SGOT) 17 U/L (15-37) Alanine Aminotransferase (ALT/SGPT) 38 U/L (12-78) Alkaline Phosphatase 65 U/L (46-116) C-Reactive Protein, Quantitative 2.8 mg/dL (0.00-0.90) Pro-B-Type Natriuretic Peptide 60 pg/mL (0-125) Total Protein 7.0 G/DL (6.4-8.2) Albumin 2.8 G/DL (3.4-5.0) Globulin 4.2 g/dL Albumin/Globulin Ratio 0.7 (1.0-2.7) Triglycerides Level 382 MG/DL (30-150) Cholesterol Level 138 MG/DL (< 200) LDL Cholesterol 73 mg/dL (<100) HDL Cholesterol 24 MG/DL (40-60) Cholesterol/HDL Ratio 5.8 (3.3-4.4) Vitamin B12 Level 370 PG/ML (193-986) Folate 19.3 NG/ML (8.6-58.9) Thyroid Stimulating Hormone (TSH) 0.717 uiU/mL (0.358-3.740) Rhythm Strip Diag. Results EP Interpretation: yes Rate: 78 Rhythm: NSR, no PVC's, no ectopy Chest X-Ray Diagnostic Results Chest X-Ray Diagnostic Results : Chest X-Ray Ordered: Yes # of Views/Limited/Complete: 1 View Indication: Chest Pain EP Interpretation: Yes Interpretation: no consolidation, no pneumothorax, no acute cardiopulmonary disease Impression: No acute disease Electronically Signed by: John Quijano DO Last Vital Signs Date Time Temp Pulse Resp B/P (MAP) Pulse Ox O2 Delivery O2 Flow Rate FiO2 06/20/18 20:22 Room Air Status: improved Disposition: ADMITTED INPATIENT Condition: Serious Referrals: Srini Cox DO (PCP) John Quijano DO Jun 20, 2018 21:14
[2018-06-20] MEDS ORDERED: HYDROmorphone 1mg/ml Carpuject IVP ONE (21:15)
[2018-06-20 21:28] LABS: BASOPHILS % (AUTO) 0.9 % (0.0-2.0); EOSINOPHILS % (AUTO) 0.6 % (0.0-3.0); HEMATOCRIT 48.7 % (42.0-52.0); HEMOGLOBIN 15.9 G/DL (14.2-18.0); LYMPHOCYTES % (AUTO) 18.8 % (20.0-45.0); MEAN CORPUSCULAR VOLUME 84 FL (80-99); MONOCYTES % (AUTO) 6.3 % (1.0-10.0); NEUTROPHILS % (AUTO) 73.4 % (45.0-75.0); PLATELET COUNT 372 K/UL (150-450); RED BLOOD COUNT 5.77 M/UL (4.70-6.10); RED CELL DISTRIBUTION WIDTH 14.8 % (11.6-14.8); WHITE BLOOD COUNT 14.3 K/UL (4.8-10.8)
[2018-06-20 21:35] LABS: ALANINE AMINOTRANSFERASE 48 U/L (12-78); ALBUMIN 3.4 G/DL (3.4-5.0); ALBUMIN/GLOBULIN RATIO 0.6 (1.0-2.7); ALKALINE PHOSPHATASE 94 U/L (46-116); ANION GAP 19 mmol/L (5-15); ASPARTATE AMINO TRANSFERASE 15 U/L (15-37); BILIRUBIN,TOTAL 0.2 MG/DL (0.2-1.0); BLOOD UREA NITROGEN 16 mg/dL (7-18); CALCIUM 9.5 MG/DL (8.5-10.1); CARBON DIOXIDE 19 MMOL/L (21-32); CHLORIDE 91 MMOL/L (98-107); CKMB 0.8 NG/ML (0.0-3.6); CREATINE KINASE 32 U/L (26-308); CREATININE 0.8 MG/DL (0.55-1.30); POTASSIUM 4.2 MMOL/L (3.5-5.1); SODIUM 129 MMOL/L (136-145)
[2018-06-20] MEDS ORDERED: Insulin Human Regular 100units/ml 3ml IV ONE (21:45)
[2018-06-20 21:53] LABS: BILIRUBIN, URINE NEGATIVE (NEGATIVE); COLOR,URINE PALE YELLOW; GLUCOSE, URINE (UA) 4+ (NEGATIVE); KETONES,URINE NEGATIVE (NEGATIVE); LEUKOCYTE ESTERASE ,URINE 3+ (NEGATIVE); NITRITE,URINE POSITIVE (NEGATIVE); PH,URINE 7 (4.5-8.0); PROTEIN,URINE 3+ (NEGATIVE); UROBILINOGEN,URINE NORMAL MG/DL (0.0-1.0)
[2018-06-20 21:57] LABS: APPEARANCE,URINE SLIGHTLY CLOUDY
[2018-06-20] MEDS ORDERED: Amikacin 1,000 MG in NS 110 ML IV SCH (22:15)
[2018-06-21 00:30] VITALS: BP 135/98
[2018-06-21] MEDS ORDERED: Milk of Magnesia 30ml Ud ORAL PRN (01:15)
[2018-06-21 04:00] VITALS: BP 131/86
[2018-06-21] MEDS: Morphine Sulfate 4mg/ml Inj (IV USE ONLY) IVP PRN ×5 (04:17→21:40)
[2018-06-21 05:07] LABS: EOSINOPHILS % (AUTO) 0.6 % (0.0-3.0); HEMATOCRIT 44.9 % (42.0-52.0); HEMOGLOBIN 14.8 G/DL (14.2-18.0); MEAN CORPUSCULAR VOLUME 85 FL (80-99); MONOCYTES % (AUTO) 5.3 % (1.0-10.0); PLATELET COUNT 332 K/UL (150-450); RED BLOOD COUNT 5.27 M/UL (4.70-6.10); RED CELL DISTRIBUTION WIDTH 15.2 % (11.6-14.8); WHITE BLOOD COUNT 14.8 K/UL (4.8-10.8)
[2018-06-21 05:27] LABS: ALANINE AMINOTRANSFERASE 40 U/L (12-78); ALBUMIN 3.1 G/DL (3.4-5.0); ALBUMIN/GLOBULIN RATIO 0.6 (1.0-2.7); ALKALINE PHOSPHATASE 78 U/L (46-116); ANION GAP 14 mmol/L (5-15); ASPARTATE AMINO TRANSFERASE 16 U/L (15-37); BILIRUBIN,TOTAL 0.2 MG/DL (0.2-1.0); BLOOD UREA NITROGEN 15 mg/dL (7-18); CALCIUM 8.6 MG/DL (8.5-10.1); CARBON DIOXIDE 22 MMOL/L (21-32); CHLORIDE 98 MMOL/L (98-107); CREATININE 0.4 MG/DL (0.55-1.30); POTASSIUM 3.8 MMOL/L (3.5-5.1); SODIUM 134 MMOL/L (136-145)
[2018-06-21] MEDS: NovoLOG Insulin Flexpen SUBQ SCH ×7 (06:20→20:21)
[2018-06-21] MEDS ORDERED: metFORMIN 500mg tab ORAL SCH (06:30)
[2018-06-21 08:00] VITALS: BP 128/87
[2018-06-21] MEDS: Lactulose 20gm/30ml UDC ORAL SCH ×4 (08:33→17:19)
[2018-06-21] MEDS: Heparin 5000 units/ml inj SUBQ SCH ×2 (08:37→20:22)
[2018-06-21] MEDS: Levemir Flexpen SUBQ SCH (08:48)
[2018-06-21] MEDS ORDERED: Amikacin Rx to dose MISC ONE (09:00)
[2018-06-21] MEDS ORDERED: Docusate 100mg cap ORAL SCH (09:00)
[2018-06-21] MEDS ORDERED: HYDROmorphone 4mg tab ORAL PRN (10:23)
--- NOTE | 2018-06-21 10:29 | Consultation ---
History of Present Illness General Date patient seen: Jun 21, 2018 Chief Complaint: Male Urogenital Problems Present Illness HPI 42 year old male with paraplegia, spina bifida, bed bound presented to ER with complaints of severe back pain and bladder spasm. The patient is paraplegic, denies any chest pain or shortness of breath. His Blood sugar was elevated and he had leukocytosis. He is admitted to [facility] because of increased Lactic acid. Allergies: Coded Allergies: CIPROFLOXACIN (Verified Allergy, Unknown, 06/14/18) HALOPERIDOL (Verified Allergy, Unknown, 06/14/18) RISPERIDONE (Verified Allergy, Unknown, 06/14/18) SENNA (Verified Allergy, Unknown, 06/14/18) Medication History Scheduled Docusate Sodium* (Colace*), 100 MG ORAL DAILY, (Reported) Fluphenazine HCl (Fluphenazine HCl), 5 MG ORAL ONCE Gabapentin* (Gabapentin*), 100 MG ORAL BID Heparin Sodium,Porcine/Pf (Heparin 1,000 Unit/10 (100/ml)), 5,000 UNIT SQ Q12HR, (Reported) Insulin Aspart (Novolog Flexpen), 0 UNITS SUBQ BEFORE MEALS AND HS Insulin Detemir (Levemir Flexpen), 15 SUBQ BIDAC, (Reported) Lactulose (Lactulose*), 30 GM ORAL THREE TIMES A DAY Metformin Hcl* (Glucophage*), 500 MG ORAL TID, (Reported) Methadone Hcl* (Methadone*), 10 MG ORAL EVERY 8 HOURS Senna Tenstrike Extract (Senna), 1.76 MG PO HS, (Reported) Scheduled PRN Hydromorphone Hcl (Hydromorphone Hcl), 4 MG ORAL Q4H PRN Magnesium Hydroxide* (Milk Of Magnesia*), 30 ML ORAL 3XW PRN for Constipation, ( Reported) Na Phos,M-B/Na Phos,Di-Ba* (Fleet Enema*), 133 ML RECTAL QOD PRN for Constipation, (Reported) Tizanidine Hcl (Zanaflex*), 2 MG ORAL Q12H PRN Trazodone Hcl (Desyrel), 50 MG ORAL QHS PRN Miscellaneous Medications [Novolog Ss], (Reported) Patient History Healthcare decision maker NA Resuscitation status Advanced Directive on File Yes Past Medical/Surgical History Past Medical/Surgical History: (1) Spina bifida (2) Chronic suprapubic catheter (3) Diabetes mellitus (4) Limited mobility in bed Review of Systems All Other Systems: negative except mentioned in HPI Physical Exam General Appearance: WD/WN Lines, tubes and drains: peripheral Neck: non-tender, normal alignment Respiratory/Chest: chest wall non-tender, lungs clear Breasts: no masses Cardiovascular/Chest: normal peripheral pulses Abdomen: normal bowel sounds, soft Genitourinary/Rectal: normal genital exam, suprapubic catheter Extremities: normal range of motion Last 24 Hour Vital Signs Date Time Temp Pulse Resp B/P (MAP) Pulse Ox O2 Delivery O2 Flow Rate FiO2 06/21/18 09:02 97.5 06/21/18 09:00 Room Air 06/21/18 08:00 115 06/21/18 08:00 97.6 106 19 128/87 (101) 97 06/21/18 04:22 Room Air 06/21/18 04:00 108 06/21/18 04:00 98.3 113 24 131/86 (101) 97 06/21/18 01:32 Room Air 06/21/18 00:41 107 06/21/18 00:30 Room Air 06/21/18 00:30 97.5 107 24 135/98 (110) 98 06/21/18 00:20 97.5 24 146/95 100 Room Air 06/21/18 00:11 97.5 06/20/18 20:30 98.1 24 146/95 100 Room Air 06/20/18 20:22 98.1 109 24 146/95 100 Room Air Intake and Output 06/20/18 06/21/18 19:00 07:00 Intake Total 1000 ml Output Total 200 ml Balance 800 ml Intake Oral 0 ml IV Total 1000 ml Output Urine Total 200 ml Laboratory Tests Test 06/20/18 20:52 06/20/18 21:41 06/20/18 22:48 06/21/18 04:00 White Blood Count 14.3 K/UL (4.8-10.8) H 14.8 K/UL (4.8-10.8) H Red Blood Count 5.77 M/UL (4.70-6.10) 5.27 M/UL (4.70-6.10) Hemoglobin 15.9 G/DL (14.2-18.0) 14.8 G/DL (14.2-18.0) Hematocrit 48.7 % (42.0-52.0) 44.9 % (42.0-52.0) Mean Corpuscular Volume 84 FL (80-99) 85 FL (80-99) Mean Corpuscular Hemoglobin 27.5 PG (27.0-31.0) 28.1 PG (27.0-31.0) Mean Corpuscular Hemoglobin Concent 32.6 G/DL (32.0-36.0) 33.0 G/DL (32.0-36.0) Red Cell Distribution Width 14.8 % (11.6-14.8) 15.2 % (11.6-14.8) H Platelet Count 372 K/UL (150-450) 332 K/UL (150-450) Mean Platelet Volume 5.8 FL (6.5-10.1) L 5.8 FL (6.5-10.1) L Neutrophils (%) (Auto) 73.4 % (45.0-75.0) 69.0 % (45.0-75.0) Lymphocytes (%) (Auto) 18.8 % (20.0-45.0) L 24.0 % (20.0-45.0) Monocytes (%) (Auto) 6.3 % (1.0-10.0) 5.3 % (1.0-10.0) Eosinophils (%) (Auto) 0.6 % (0.0-3.0) 0.6 % (0.0-3.0) Basophils (%) (Auto) 0.9 % (0.0-2.0) 1.0 % (0.0-2.0) Sodium Level 129 MMOL/L (136-145) L 134 MMOL/L (136-145) L Potassium Level 4.2 MMOL/L (3.5-5.1) 3.8 MMOL/L (3.5-5.1) Chloride Level 91 MMOL/L (98-107) L 98 MMOL/L (98-107) Carbon Dioxide Level 19 MMOL/L (21-32) L 22 MMOL/L (21-32) Anion Gap 19 mmol/L (5-15) H 14 mmol/L (5-15) Blood Urea Nitrogen 16 mg/dL (7-18) 15 mg/dL (7-18) Creatinine 0.8 MG/DL (0.55-1.30) 0.4 MG/DL (0.55-1.30) L Estimat Glomerular Filtration Rate > 60 mL/min (>60) > 60 mL/min (>60) Glucose Level 633 MG/DL (74-106) *H 395 MG/DL (74-106) #H Lactic Acid Level 6.10 mmol/L (0.4-2.0) H 5.10 mmol/L (0.66-2.22) H Calcium Level 9.5 MG/DL (8.5-10.1) 8.6 MG/DL (8.5-10.1) Total Bilirubin 0.2 MG/DL (0.2-1.0) 0.2 MG/DL (0.2-1.0) Aspartate Amino Transf (AST/SGOT) 15 U/L (15-37) 16 U/L (15-37) Alanine Aminotransferase (ALT/SGPT) 48 U/L (12-78) 40 U/L (12-78) Alkaline Phosphatase 94 U/L (46-116) 78 U/L (46-116) Total Creatine Kinase 32 U/L (26-308) Creatine Kinase MB 0.8 NG/ML (0.0-3.6) Creatine Kinase MB Relative Index 2.5 Troponin I 0.000 ng/mL (0.000-0.056) Pro-B-Type Natriuretic Peptide 210 pg/mL (0-125) H Total Protein 9.0 G/DL (6.4-8.2) H 8.0 G/DL (6.4-8.2) Albumin 3.4 G/DL (3.4-5.0) 3.1 G/DL (3.4-5.0) L Globulin 5.6 g/dL 4.9 g/dL Albumin/Globulin Ratio 0.6 (1.0-2.7) L 0.6 (1.0-2.7) L Lipase 773 U/L (73-393) H Urine Color Pale yellow Urine Appearance Slightly cloudy Urine pH 7 (4.5-8.0) Urine Specific [place] 1.005 (1.005-1.035) Urine Protein 3+ (NEGATIVE) H Urine Glucose (UA) 4+ (NEGATIVE) H Urine Ketones Negative (NEGATIVE) Urine Blood 4+ (NEGATIVE) H Urine Nitrite Positive (NEGATIVE) H Urine Bilirubin Negative (NEGATIVE) Urine Urobilinogen Normal MG/DL (0.0-1.0) Urine Leukocyte Esterase 3+ (NEGATIVE) H Urine RBC 10-15 /HPF (0 - 0) H Urine WBC 5-10 /HPF (0 - 0) H Urine Squamous Epithelial Cells None /LPF (NONE/OCC) Urine Bacteria Few /HPF (NONE) Height (Feet): 5 Height (Inches): 4.00 Weight (Pounds): 170 Medications Current Medications Medications (Trade) Dose Ordered Sig/Trevin Route PRN Reason Start Time Stop Time Status Last Admin Dose Admin Dextrose (Dextrose 50%) 25 ml Q30M PRN IV Hypoglycemia 06/21/18 06:45 07/21/18 06:44 Dextrose (Dextrose 50%) 50 ml Q30M PRN IV Hypoglycemia 06/21/18 06:45 07/21/18 06:44 Docusate Sodium (Colace) 100 mg DAILY ORAL 06/21/18 09:00 07/21/18 08:59 06/21/18 08:34 Gabapentin (Neurontin) 100 mg BID ORAL 06/21/18 09:00 07/21/18 08:59 06/21/18 08:34 Heparin Sodium (Porcine) (Heparin 5000 units/ml) 5,000 units EVERY 12 HOURS SUBQ 06/21/18 09:00 07/21/18 08:59 06/21/18 08:37 Insulin Aspart (NovoLOG) BEFORE MEALS AND HS SUBQ 06/21/18 06:30 07/21/18 06:29 06/21/18 06:20 Insulin Aspart (NovoLOG) 10 units NOVOTIAC SUBQ 06/21/18 06:45 07/21/18 06:44 06/21/18 07:42 Insulin Detemir (Levemir) 30 units DAILY SUBQ 06/21/18 09:00 07/21/18 08:59 06/21/18 08:48 Lactulose (Cephulac) 30 gm THREE TIMES A DAY ORAL 06/21/18 09:00 07/21/18 08:59 Magnesium Hydroxide (Mom) 30 ml HSPRN PRN ORAL Constipation 06/21/18 01:15 07/21/18 01:14 Methadone HCl (Methadone HCl) 10 mg EVERY 8 HOURS ORAL 06/21/18 06:00 06/28/18 05:59 06/21/18 06:17 Morphine Sulfate (Morphine Sulfate) 4 mg Q4H PRN IVP For Pain 06/21/18 01:15 06/28/18 01:14 06/21/18 08:32 Assessment/Plan Problem List: (1) Uncontrolled diabetes mellitus ICD Codes: E11.65 - Type 2 diabetes mellitus with hyperglycemia SNOMED: 39380220, 178756987 (2) Sepsis ICD Codes: A41.9 - Sepsis, unspecified organism SNOMED: 20556189 (3) Spina bifida ICD Codes: Q05.9 - Spina bifida, unspecified SNOMED: 41226719 (4) Limited mobility in bed SNOMED: 774466495 (5) Chronic suprapubic catheter ICD Codes: Z93.59 - Other cystostomy status SNOMED: 927122898 (6) Paraplegia ICD Codes: G82.20 - Paraplegia, unspecified SNOMED: 75104511 Diagnosis Beeler I: crawford cultures ID evaluation sliding scale Levemir IV fluids resume Methadone q8 dvt prophylaxis Joao Siu MD Jun 21, 2018 10:29
[2018-06-21] MEDS ORDERED: TraZODone 50mg tab ORAL PRN (10:30)
[2018-06-21] MEDS: Oxybutynin 5mg tab ORAL SCH ×2 (10:58→21:39)
[2018-06-21 12:00] VITALS: BP_SYST 111; BP_DIAS 30; BP_DIAS 81
[2018-06-21] MEDS ORDERED: Lactulose 20gm/30ml UDC ORAL SCH (13:00)
--- NOTE | 2018-06-21 15:05 | Diagnostic Imaging Report ---
Indication: Chest pain Technique: XRAY Chest 1v Comparison: None Findings: Heart size within the upper limits for normal for AP technique. Mediastinal contours are sharp. Subtle increased nonspecific interstitial markings. There is linear opacities at the left lateral base with blunting of the left costophrenic sulcus. There is osteopenia, scoliosis and degenerative change of the spine. Spinal hardware is noted. IMPRESSION: Slightly increased interstitial markings, possibly chronic. Correlate clinically to exclude mild congestive changes/fluid overload. Opacities at the left base and blunting of the left costophrenic sulcus which may related to scarring and chronic pleural thickening. Osteopenia, scoliosis is no evidence of prior spine surgery.
[2018-06-21] MEDS: LORazepam 1mg tab ORAL PRN (15:39)
--- NOTE | 2018-06-21 15:45 | Consultation ---
History of Present Illness General Date patient seen: Jun 21, 2018 Chief Complaint: Male Urogenital Problems Present Illness HPI 42 year old male with multiple medical comorbidities presented with complaints of bladder and back pain. admitted for medical care and management. known to me from recent admission. still with distended abdomen. also, on admission noted to have multiple wounds. surgery called to evaluate and assist with care and management. patient seen, chart reviewed, patient examined. Allergies: Coded Allergies: CIPROFLOXACIN (Verified Allergy, Unknown, 06/14/18) HALOPERIDOL (Verified Allergy, Unknown, 06/14/18) RISPERIDONE (Verified Allergy, Unknown, 06/14/18) SENNA (Verified Allergy, Unknown, 06/14/18) Medication History Scheduled Docusate Sodium* (Colace*), 100 MG ORAL DAILY, (Reported) Fluphenazine HCl (Fluphenazine HCl), 5 MG ORAL ONCE Gabapentin* (Gabapentin*), 100 MG ORAL BID Heparin Sodium,Porcine/Pf (Heparin 1,000 Unit/10 (100/ml)), 5,000 UNIT SQ Q12HR, (Reported) Insulin Aspart (Novolog Flexpen), 0 UNITS SUBQ BEFORE MEALS AND HS Insulin Detemir (Levemir Flexpen), 15 SUBQ BIDAC, (Reported) Lactulose (Lactulose*), 30 GM ORAL THREE TIMES A DAY Metformin Hcl* (Glucophage*), 500 MG ORAL TID, (Reported) Methadone Hcl* (Methadone*), 10 MG ORAL EVERY 8 HOURS Senna [place] Extract (Senna), 1.76 MG PO HS, (Reported) Scheduled PRN Hydromorphone Hcl (Hydromorphone Hcl), 4 MG ORAL Q4H PRN Magnesium Hydroxide* (Milk Of Magnesia*), 30 ML ORAL 3XW PRN for Constipation, ( Reported) Na Phos,M-B/Na Phos,Di-Ba* (Fleet Enema*), 133 ML RECTAL QOD PRN for Constipation, (Reported) Tizanidine Hcl (Zanaflex*), 2 MG ORAL Q12H PRN Trazodone Hcl (Desyrel), 50 MG ORAL QHS PRN Miscellaneous Medications [Novolog Ss], (Reported) Patient History Limited by: medical condition History Provided By: Patient, Medical Record, PMD Healthcare decision maker NA Resuscitation status Advanced Directive on File Yes Past Medical/Surgical History Past Medical/Surgical History: (1) Intractable back pain (2) Abdominal distension (3) Decubitus skin ulcer (4) Abnormal urogenital findings (5) Paraplegia (6) Spina bifida (7) Diabetes mellitus (8) Limited mobility in bed (9) Sepsis (10) Uncontrolled diabetes mellitus Review of Systems All Other Systems: negative except mentioned in HPI Physical Exam General Appearance: no apparent distress Lines, tubes and drains: peripheral HEENT: mucous membranes moist Neck: normal inspection Respiratory/Chest: no respiratory distress, no accessory muscle use Abdomen: soft, no organomegaly, no mass, distended Extremities: other Skin Exam: other Neurologic: alert Last 24 Hour Vital Signs Date Time Temp Pulse Resp B/P (MAP) Pulse Ox O2 Delivery O2 Flow Rate FiO2 06/21/18 12:00 97.8 97 21 111/30 (57) 99 06/21/18 12:00 Room Air 06/21/18 12:00 97 06/21/18 09:02 97.5 06/21/18 09:00 Room Air 06/21/18 08:00 115 06/21/18 08:00 97.6 106 19 128/87 (101) 97 06/21/18 04:22 Room Air 06/21/18 04:00 108 06/21/18 04:00 98.3 113 24 131/86 (101) 97 06/21/18 01:32 Room Air 06/21/18 00:41 107 06/21/18 00:30 Room Air 06/21/18 00:30 97.5 107 24 135/98 (110) 98 06/21/18 00:20 97.5 24 146/95 100 Room Air 06/21/18 00:11 97.5 06/20/18 20:30 98.1 24 146/95 100 Room Air 06/20/18 20:22 98.1 109 24 146/95 100 Room Air Intake and Output 06/20/18 06/21/18 19:00 07:00 Intake Total 1000 ml Output Total 200 ml Balance 800 ml Intake Oral 0 ml IV Total 1000 ml Output Urine Total 200 ml Laboratory Tests Test 06/20/18 20:52 06/20/18 21:41 06/20/18 22:48 06/21/18 04:00 White Blood Count 14.3 K/UL (4.8-10.8) H 14.8 K/UL (4.8-10.8) H Red Blood Count 5.77 M/UL (4.70-6.10) 5.27 M/UL (4.70-6.10) Hemoglobin 15.9 G/DL (14.2-18.0) 14.8 G/DL (14.2-18.0) Hematocrit 48.7 % (42.0-52.0) 44.9 % (42.0-52.0) Mean Corpuscular Volume 84 FL (80-99) 85 FL (80-99) Mean Corpuscular Hemoglobin 27.5 PG (27.0-31.0) 28.1 PG (27.0-31.0) Mean Corpuscular Hemoglobin Concent 32.6 G/DL (32.0-36.0) 33.0 G/DL (32.0-36.0) Red Cell Distribution Width 14.8 % (11.6-14.8) 15.2 % (11.6-14.8) H Platelet Count 372 K/UL (150-450) 332 K/UL (150-450) Mean Platelet Volume 5.8 FL (6.5-10.1) L 5.8 FL (6.5-10.1) L Neutrophils (%) (Auto) 73.4 % (45.0-75.0) 69.0 % (45.0-75.0) Lymphocytes (%) (Auto) 18.8 % (20.0-45.0) L 24.0 % (20.0-45.0) Monocytes (%) (Auto) 6.3 % (1.0-10.0) 5.3 % (1.0-10.0) Eosinophils (%) (Auto) 0.6 % (0.0-3.0) 0.6 % (0.0-3.0) Basophils (%) (Auto) 0.9 % (0.0-2.0) 1.0 % (0.0-2.0) Sodium Level 129 MMOL/L (136-145) L 134 MMOL/L (136-145) L Potassium Level 4.2 MMOL/L (3.5-5.1) 3.8 MMOL/L (3.5-5.1) Chloride Level 91 MMOL/L (98-107) L 98 MMOL/L (98-107) Carbon Dioxide Level 19 MMOL/L (21-32) L 22 MMOL/L (21-32) Anion Gap 19 mmol/L (5-15) H 14 mmol/L (5-15) Blood Urea Nitrogen 16 mg/dL (7-18) 15 mg/dL (7-18) Creatinine 0.8 MG/DL (0.55-1.30) 0.4 MG/DL (0.55-1.30) L Estimat Glomerular Filtration Rate > 60 mL/min (>60) > 60 mL/min (>60) Glucose Level 633 MG/DL (74-106) *H 395 MG/DL (74-106) #H Lactic Acid Level 6.10 mmol/L (0.4-2.0) H 5.10 mmol/L (0.66-2.22) H Calcium Level 9.5 MG/DL (8.5-10.1) 8.6 MG/DL (8.5-10.1) Total Bilirubin 0.2 MG/DL (0.2-1.0) 0.2 MG/DL (0.2-1.0) Aspartate Amino Transf (AST/SGOT) 15 U/L (15-37) 16 U/L (15-37) Alanine Aminotransferase (ALT/SGPT) 48 U/L (12-78) 40 U/L (12-78) Alkaline Phosphatase 94 U/L (46-116) 78 U/L (46-116) Total Creatine Kinase 32 U/L (26-308) Creatine Kinase MB 0.8 NG/ML (0.0-3.6) Creatine Kinase MB Relative Index 2.5 Troponin I 0.000 ng/mL (0.000-0.056) Pro-B-Type Natriuretic Peptide 210 pg/mL (0-125) H Total Protein 9.0 G/DL (6.4-8.2) H 8.0 G/DL (6.4-8.2) Albumin 3.4 G/DL (3.4-5.0) 3.1 G/DL (3.4-5.0) L Globulin 5.6 g/dL 4.9 g/dL Albumin/Globulin Ratio 0.6 (1.0-2.7) L 0.6 (1.0-2.7) L Lipase 773 U/L (73-393) H Urine Color Pale yellow Urine Appearance Slightly cloudy Urine pH 7 (4.5-8.0) Urine Specific Roland 1.005 (1.005-1.035) Urine Protein 3+ (NEGATIVE) H Urine Glucose (UA) 4+ (NEGATIVE) H Urine Ketones Negative (NEGATIVE) Urine Blood 4+ (NEGATIVE) H Urine Nitrite Positive (NEGATIVE) H Urine Bilirubin Negative (NEGATIVE) Urine Urobilinogen Normal MG/DL (0.0-1.0) Urine Leukocyte Esterase 3+ (NEGATIVE) H Urine RBC 10-15 /HPF (0 - 0) H Urine WBC 5-10 /HPF (0 - 0) H Urine Squamous Epithelial Cells None /LPF (NONE/OCC) Urine Bacteria Few /HPF (NONE) Height (Feet): 5 Height (Inches): 4.00 Weight (Pounds): 170 Medications Current Medications Medications (Trade) Dose Ordered Sig/Trevin Route PRN Reason Start Time Stop Time Status Last Admin Dose Admin Dextrose (Dextrose 50%) 25 ml Q30M PRN IV Hypoglycemia 06/21/18 06:45 07/21/18 06:44 Dextrose (Dextrose 50%) 50 ml Q30M PRN IV Hypoglycemia 06/21/18 06:45 07/21/18 06:44 Docusate Sodium (Colace) 100 mg DAILY ORAL 06/21/18 09:00 07/21/18 08:59 06/21/18 08:34 Gabapentin (Neurontin) 100 mg BID ORAL 06/21/18 09:00 07/21/18 08:59 06/21/18 08:34 Heparin Sodium (Porcine) (Heparin 5000 units/ml) 5,000 units EVERY 12 HOURS SUBQ 06/21/18 09:00 07/21/18 08:59 06/21/18 08:37 Hydromorphone HCl (Dilaudid) 4 mg Q4H PRN ORAL pain 7-10 06/21/18 10:23 06/28/18 10:22 Insulin Aspart (NovoLOG) BEFORE MEALS AND HS SUBQ 06/21/18 06:30 07/21/18 06:29 06/21/18 12:23 Insulin Aspart (NovoLOG) 10 units NOVOTIAC SUBQ 06/21/18 06:45 07/21/18 06:44 06/21/18 12:23 Insulin Detemir (Levemir) 30 units DAILY SUBQ 06/21/18 09:00 07/21/18 08:59 06/21/18 08:48 Lactulose (Cephulac) 30 gm THREE TIMES A DAY ORAL 06/21/18 09:00 07/21/18 08:59 06/21/18 12:26 Lorazepam (Ativan) 1 mg Q6H PRN ORAL For Anxiety 06/21/18 13:45 06/28/18 13:44 06/21/18 15:39 Magnesium Hydroxide (Mom) 30 ml HSPRN PRN ORAL Constipation 06/21/18 01:15 07/21/18 01:14 Methadone HCl (Methadone HCl) 10 mg EVERY 8 HOURS ORAL 06/21/18 14:00 06/28/18 05:59 06/21/18 14:47 Morphine Sulfate (Morphine Sulfate) 4 mg Q4H PRN IVP For Pain 06/21/18 01:15 06/28/18 01:14 06/21/18 13:10 Oxybutynin Chloride (Ditropan) 5 mg Q8HR ORAL 06/21/18 10:45 07/21/18 10:44 06/21/18 10:58 Tizanidine HCl (Zanaflex) 2 mg Q12H PRN ORAL spasm 06/21/18 10:30 07/21/18 10:29 Trazodone HCl (Desyrel) 50 mg QHS PRN ORAL insomia 06/21/18 10:30 07/21/18 10:29 Assessment/Plan Problem List: (1) Abnormal urogenital findings ICD Codes: R89.9 - Unspecified abnormal finding in specimens from other organs , systems and tissues SNOMED: 275104598, 572327272 (2) Paraplegia ICD Codes: G82.20 - Paraplegia, unspecified SNOMED: 17369894 (3) Spina bifida ICD Codes: Q05.9 - Spina bifida, unspecified SNOMED: 99753948 (4) Diabetes mellitus ICD Codes: E11.9 - Type 2 diabetes mellitus without complications SNOMED: 64319952 (5) Limited mobility in bed SNOMED: 444435173 (6) Sepsis ICD Codes: A41.9 - Sepsis, unspecified organism SNOMED: 96368201 (7) Uncontrolled diabetes mellitus ICD Codes: E11.65 - Type 2 diabetes mellitus with hyperglycemia SNOMED: 14599151, 332778188 (8) Abdominal distension Assessment & Plan: stable as compared to prior exam still constipated needs bowel regimen KUB ordered will follow with serial exam and recs thank you ICD Codes: R14.0 - Abdominal distension (gaseous) SNOMED: 31056414 (9) Decubitus skin ulcer Assessment & Plan: Pt presented on admission with multiple partial thickness pressure injuries secondary to shearing R,L Buttocks ,Scrotum and both ischial regions. Moisture related intertrigo noted to L groin and abd panus.All affected areas cleansed with Soap and water .Triad Paste applied to affected areas including pressure areas on buttocks and both ischail areas. Tx.plan: Apply Triad paste to abd fols, Both groin,Scrotum and Buttocks with each perineal care. Reposition At least every 2hours or as tolerated. Off-Load heels with Pillow. ICD Codes: L89.90 - Pressure ulcer of unspecified site, unspecified stage SNOMED: 515613088 (10) Intractable back pain ICD Codes: M54.9 - Dorsalgia, unspecified SNOMED: 424471353 Endy De La Rosa Jun 21, 2018 15:45
[2018-06-21 16:00] VITALS: BP 112/79
--- NOTE | 2018-06-21 16:00 | Consultation ---
DATE OF CONSULTATION: 06/21/2018 ENDOCRINOLOGY CONSULTATION CONSULTING PHYSICIAN: Arden Rossi M.D. REFERRING PHYSICIAN: John Estevez M.D. REASON FOR CONSULTATION: Diabetes management. HISTORY OF PRESENT ILLNESS: The patient presented with complaint of elevated glucose and is paraplegic, diabetes, glucose is out of control and blood sugar is over 600. Endocrinology was consulted. The patient is known to me from recent admission. MEDICATIONS: Reviewed and reconciled. ALLERGIES TO MEDICATIONS: Ciprofloxacin, haloperidol, risperidone, and senna. FAMILY HISTORY: Noncontributory. PAST MEDICAL HISTORY: 1. COPD. 2. Diabetes. 3. GERD. 4. Multiple sclerosis. SOCIAL HISTORY: From senior care facility. REVIEW OF SYSTEMS: As per HPI. PHYSICAL EXAMINATION: VITAL SIGNS: Blood pressure 142/80, pulse 70, temperature 98.2, and respiratory rate 18. HEENT: Pupils are equal and reactive to light and accommodation. Sclerae anicteric. NECK: No JVD. HEART: Regular. LUNGS: Clear. ABDOMEN: Positive bowel sounds. EXTREMITIES: Paraplegic. LABORATORY VALUES: Sodium 129, potassium 4.2, chloride 91, bicarb 22, BUN creatinine of 0.4, glucose of 394, on presentation 632. Lactic acid 6.1. CBC shows WBC of 14, hemoglobin of 14, hematocrit of 44, platelets of 332. DIAGNOSES: 1. Lactic acidosis. 2. Diabetes, out of control. PLAN: 1. Discontinue metformin due to lactic acidosis. 2. Start Levemir 30 units daily. 3. Start NovoLog 10 units before each meal. 4. NovoLog sliding scale before meals and at bedtime. 5. Further adjustment according to blood glucose values. Thank you, Dr. Estevez, for the courtesy of this consultation. Arden Rossi M.D. DR: OBED/ASHLEY JOB#: [id number] CC: CHANTEL
--- NOTE | 2018-06-21 16:31 | Consultation ---
Consult Note Consult Note asked to eval at the request of Dr Vargas for HypoNatremia 42 year old male with paraplegia, spina bifida, bed bound presented to ER with complaints of severe back pain and bladder spasm. The patient is paraplegic, denies any chest pain or shortness of breath. His Blood sugar was elevated and he had leukocytosis. He is admitted to [facility] because of increased Lactic acid. Allergies: Coded Allergies: CIPROFLOXACIN (Verified Allergy, Unknown, 06/14/18) HALOPERIDOL (Verified Allergy, Unknown, 06/14/18) RISPERIDONE (Verified Allergy, Unknown, 06/14/18) SENNA (Verified Allergy, Unknown, 06/14/18) Assessment/Plan HypoNatremia due to High Glucose / hyperglycemia Uncontrolled Dm UTI ? Sepsis ? suprepubic cath, High lactic level Spina bifida / Paraplegia Limited mobility MS BS control Monitor lytes per orders urine cultures Elvin Robles MD Jun 21, 2018 16:31
[2018-06-21] MEDS: Docusate 100mg cap ORAL SCH (17:19)
[2018-06-21 20:00] VITALS: BP 110/71
[2018-06-21] MEDS ORDERED: Levemir Flexpen SUBQ SCH (21:00)
[2018-06-22] VITALS: BP 120/70
[2018-06-22] MEDS: Morphine Sulfate 4mg/ml Inj (IV USE ONLY) IVP PRN ×4 (02:39→17:05)
[2018-06-22 04:00] VITALS: BP 114/72
[2018-06-22 05:38] LABS: BASOPHILS % (AUTO) 1.1 % (0.0-2.0); EOSINOPHILS % (AUTO) 1.9 % (0.0-3.0); HEMATOCRIT 38.5 % (42.0-52.0); HEMOGLOBIN 12.6 G/DL (14.2-18.0); LYMPHOCYTES % (AUTO) 28.7 % (20.0-45.0); MEAN CORPUSCULAR VOLUME 85 FL (80-99); MONOCYTES % (AUTO) 6.4 % (1.0-10.0); PLATELET COUNT 263 K/UL (150-450); RED BLOOD COUNT 4.51 M/UL (4.70-6.10); RED CELL DISTRIBUTION WIDTH 15.3 % (11.6-14.8); WHITE BLOOD COUNT 9.9 K/UL (4.8-10.8)
[2018-06-22] MEDS: Oxybutynin 5mg tab ORAL SCH ×2 (05:45→17:58)
[2018-06-22] MEDS: NovoLOG Insulin Flexpen SUBQ SCH ×7 (05:48→22:25)
[2018-06-22 06:18] LABS: ALANINE AMINOTRANSFERASE 38 U/L (12-78); ALBUMIN 2.8 G/DL (3.4-5.0); ALBUMIN/GLOBULIN RATIO 0.7 (1.0-2.7); ALKALINE PHOSPHATASE 65 U/L (46-116); ANION GAP 12 mmol/L (5-15); ASPARTATE AMINO TRANSFERASE 17 U/L (15-37); BILIRUBIN,TOTAL 0.2 MG/DL (0.2-1.0); BLOOD UREA NITROGEN 28 mg/dL (7-18); CALCIUM 7.9 MG/DL (8.5-10.1); CARBON DIOXIDE 22 MMOL/L (21-32); CHLORIDE 100 MMOL/L (98-107); CHOLESTEROL 138 MG/DL (< 200); CREATININE 0.5 MG/DL (0.55-1.30); GAMMA GLUTAMYL TRANSPEPTIDASE 32 U/L (5-85); HDL CHOLESTEROL 24 MG/DL (40-60); PHOSPHORUS 5.7 MG/DL (2.5-4.9); POTASSIUM 4.1 MMOL/L (3.5-5.1); SODIUM 134 MMOL/L (136-145); TRIGLYCERIDES 382 MG/DL (30-150)
[2018-06-22 08:00] VITALS: BP 112/72
[2018-06-22] MEDS: Lactulose 20gm/30ml UDC ORAL SCH ×3 (09:00→17:58)
[2018-06-22] MEDS ORDERED: Oxybutynin 5mg tab ORAL SCH (09:00)
[2018-06-22] MEDS: Docusate 100mg cap ORAL SCH ×3 (09:02→17:58)
[2018-06-22] MEDS: Heparin 5000 units/ml inj SUBQ SCH ×2 (09:03→21:44)
[2018-06-22] MEDS: Levemir Flexpen SUBQ SCH (09:13)
[2018-06-22] MEDS: LORazepam 1mg tab ORAL PRN ×2 (10:20→18:39)
--- NOTE | 2018-06-22 10:32 | Pulmonology Progress Note ---
Assessment/Plan Problems: (1) Sepsis (2) Uncontrolled diabetes mellitus (3) Spina bifida (4) Limited mobility in bed (5) Chronic suprapubic catheter (6) Paraplegia Assessment/Plan iv fluids check cultures f/u ID recommendations pain management increase Methadone to 15 Q8 dvt prophylaxis. Subjective ROS Limited/Unobtainable: No Constitutional: Reports: no symptoms HEENT: Repors: no symptoms Respiratory: Reports: no symptoms Allergies: Coded Allergies: CIPROFLOXACIN (Verified Allergy, Unknown, 06/14/18) HALOPERIDOL (Verified Allergy, Unknown, 06/14/18) RISPERIDONE (Verified Allergy, Unknown, 06/14/18) SENNA (Verified Allergy, Unknown, 06/14/18) Objective Last 24 Hour Vital Signs Date Time Temp Pulse Resp B/P (MAP) Pulse Ox O2 Delivery O2 Flow Rate FiO2 06/22/18 08:00 97.7 98 20 112/72 (85) 99 06/22/18 07:42 101 06/22/18 04:00 98.1 83 20 114/72 (86) 100 06/22/18 04:00 Room Air 06/22/18 04:00 86 06/22/18 00:00 87 06/22/18 00:00 Room Air 06/22/18 00:00 98.4 86 20 120/70 (87) 100 06/21/18 20:00 Room Air 06/21/18 20:00 97.9 103 20 110/71 (84) 100 06/21/18 19:09 107 06/21/18 16:00 97.6 101 20 112/79 (90) 100 06/21/18 16:00 Room Air 06/21/18 16:00 106 06/21/18 12:00 97.8 97 21 111/81 (91) 99 06/21/18 12:00 Room Air 06/21/18 12:00 97 Intake and Output 06/21/18 06/22/18 19:00 07:00 Intake Total 800 ml Output Total 500 ml 1200 ml Balance 300 ml -1200 ml Intake Oral 800 ml Output Urine Total 500 ml 1200 ml General Appearance: WD/WN HEENT: atraumatic, anicteric Respiratory/Chest: chest wall non-tender, lungs clear Cardiovascular: normal peripheral pulses, normal rate Abdomen: soft, non tender, no organomegaly Extremities: no cyanosis Skin: no rash Microbiology Date/Time Source Procedure Growth Status 06/20/18 20:59 Blood Blood Culture - Preliminary NO GROWTH AFTER 24 HOURS Resulted 06/20/18 20:52 Blood Blood Culture - Preliminary NO GROWTH AFTER 24 HOURS Resulted Laboratory Tests 06/22/18 04:50: White Blood Count 9.9, Red Blood Count 4.51L, Hemoglobin 12.6L, Hematocrit 38.5L , Mean Corpuscular Volume 85, Mean Corpuscular Hemoglobin 28.0, Mean Corpuscular Hemoglobin Concent 32.9, Red Cell Distribution Width 15.3H, Platelet Count 263, Mean Platelet Volume 6.6, Neutrophils (%) (Auto) 62.0, Lymphocytes (%) (Auto) 28.7, Monocytes (%) (Auto) 6.4, Eosinophils (%) (Auto) 1.9, Basophils (%) (Auto) 1.1, Sodium Level 134L, Potassium Level 4.1, Chloride Level 100, Carbon Dioxide Level 22, Anion Gap 12, Blood Urea Nitrogen 28H, Creatinine 0.5L, Estimat Glomerular Filtration Rate > 60, Glucose Level 227#H, Lactic Acid Level 1.00, Uric Acid 8.7H, Calcium Level 7.9L, Phosphorus Level 5.7H, Magnesium Level 1.7L, Total Bilirubin 0.2, Gamma Glutamyl Transpeptidase 32, Aspartate Amino Transf (AST/SGOT) 17, Alanine Aminotransferase (ALT/SGPT) 38 , Alkaline Phosphatase 65, C-Reactive Protein, Quantitative 2.8H, Pro-B-Type Natriuretic Peptide 60, Total Protein 7.0, Albumin 2.8L, Globulin 4.2, Albumin/ Globulin Ratio 0.7L, Triglycerides Level 382H, Cholesterol Level 138, LDL Cholesterol 73, HDL Cholesterol 24L, Cholesterol/HDL Ratio 5.8H, Vitamin B12 Level 370, Folate 19.3, Thyroid Stimulating Hormone (TSH) 0.717, Cortisol AM Sample [Pending] Current Medications Medications (Trade) Dose Ordered Sig/Trevin Route PRN Reason Start Time Stop Time Status Last Admin Dose Admin Dextrose (Dextrose 50%) 25 ml Q30M PRN IV Hypoglycemia 06/21/18 06:45 07/21/18 06:44 Dextrose (Dextrose 50%) 50 ml Q30M PRN IV Hypoglycemia 06/21/18 06:45 07/21/18 06:44 Docusate Sodium (Colace) 100 mg TID ORAL 06/21/18 18:00 07/21/18 08:59 06/22/18 09:02 Gabapentin (Neurontin) 100 mg BID ORAL 06/21/18 09:00 07/21/18 08:59 06/22/18 09:01 Heparin Sodium (Porcine) (Heparin 5000 units/ml) 5,000 units EVERY 12 HOURS SUBQ 06/21/18 09:00 07/21/18 08:59 06/22/18 09:03 Hydromorphone HCl (Dilaudid) 4 mg Q4H PRN ORAL pain 7-10 06/21/18 10:23 06/28/18 10:22 Insulin Aspart (NovoLOG) BEFORE MEALS AND HS SUBQ 06/21/18 06:30 07/21/18 06:29 06/22/18 05:49 Insulin Aspart (NovoLOG) 10 units NOVOTIAC SUBQ 06/21/18 06:45 07/21/18 06:44 06/22/18 05:48 Insulin Detemir (Levemir) 30 units DAILY SUBQ 06/21/18 09:00 07/21/18 08:59 06/22/18 09:13 Lactulose (Cephulac) 30 gm THREE TIMES A DAY ORAL 06/21/18 09:00 07/21/18 08:59 06/21/18 12:26 Lorazepam (Ativan) 1 mg Q6H PRN ORAL For Anxiety 06/21/18 13:45 06/28/18 13:44 06/22/18 10:20 Magnesium Hydroxide (Mom) 30 ml HSPRN PRN ORAL Constipation 06/21/18 01:15 07/21/18 01:14 Methadone HCl (Methadone HCl) 10 mg EVERY 8 HOURS ORAL 06/21/18 14:00 06/28/18 05:59 06/22/18 05:46 Morphine Sulfate (Morphine Sulfate) 4 mg Q4H PRN IVP For Pain 06/21/18 01:15 06/28/18 01:14 06/22/18 08:59 Oxybutynin Chloride (Ditropan) 10 mg BID ORAL 06/22/18 09:00 07/22/18 08:59 06/22/18 09:02 Pantoprazole (Protonix) 40 mg EVERY 12 HOURS ORAL 06/21/18 21:00 07/21/18 20:59 06/22/18 09:02 Tizanidine HCl (Zanaflex) 2 mg Q12H PRN ORAL spasm 06/21/18 10:30 07/21/18 10:29 Trazodone HCl (Desyrel) 50 mg QHS PRN ORAL insomia 06/21/18 10:30 07/21/18 10:29 Joao Siu MD Jun 22, 2018 10:32
[2018-06-22 12:00] VITALS: BP 116/70
--- NOTE | 2018-06-22 13:55 | Nephrology Progress Note ---
Assessment/Plan Problem List: (1) Hyponatremia (2) Diabetes mellitus Assessment: OOC (3) Sepsis (4) Paraplegia Assessment HypoNatremia due to High Glucose / hyperglycemia Uncontrolled Dm UTI ? Sepsis ? suprepubic cath, High lactic level Spina bifida / Paraplegia Limited mobility MS Plan BS control NS IV fluids tricor for high Trigs Monitor lytes per orders urine cultures Subjective ROS Limited/Unobtainable: No Constitutional: Reports: malaise Objective Objective Last 24 Hour Vital Signs Date Time Temp Pulse Resp B/P (MAP) Pulse Ox O2 Delivery O2 Flow Rate FiO2 06/22/18 12:00 Room Air 06/22/18 09:00 Room Air 06/22/18 08:00 Room Air 06/22/18 08:00 97.7 98 20 112/72 (85) 99 06/22/18 07:42 101 06/22/18 04:00 98.1 83 20 114/72 (86) 100 06/22/18 04:00 Room Air 06/22/18 04:00 86 06/22/18 00:00 87 06/22/18 00:00 Room Air 06/22/18 00:00 98.4 86 20 120/70 (87) 100 06/21/18 20:00 Room Air 06/21/18 20:00 97.9 103 20 110/71 (84) 100 06/21/18 19:09 107 06/21/18 16:00 97.6 101 20 112/79 (90) 100 06/21/18 16:00 Room Air 06/21/18 16:00 106 Intake and Output 06/21/18 06/22/18 19:00 07:00 Intake Total 800 ml Output Total 500 ml 1200 ml Balance 300 ml -1200 ml Intake Oral 800 ml Output Urine Total 500 ml 1200 ml Laboratory Tests 06/22/18 04:50: White Blood Count 9.9, Red Blood Count 4.51L, Hemoglobin 12.6L, Hematocrit 38.5L , Mean Corpuscular Volume 85, Mean Corpuscular Hemoglobin 28.0, Mean Corpuscular Hemoglobin Concent 32.9, Red Cell Distribution Width 15.3H, Platelet Count 263, Mean Platelet Volume 6.6, Neutrophils (%) (Auto) 62.0, Lymphocytes (%) (Auto) 28.7, Monocytes (%) (Auto) 6.4, Eosinophils (%) (Auto) 1.9, Basophils (%) (Auto) 1.1, Sodium Level 134L, Potassium Level 4.1, Chloride Level 100, Carbon Dioxide Level 22, Anion Gap 12, Blood Urea Nitrogen 28H, Creatinine 0.5L, Estimat Glomerular Filtration Rate > 60, Glucose Level 227#H, Lactic Acid Level 1.00, Uric Acid 8.7H, Calcium Level 7.9L, Phosphorus Level 5.7H, Magnesium Level 1.7L, Total Bilirubin 0.2, Gamma Glutamyl Transpeptidase 32, Aspartate Amino Transf (AST/SGOT) 17, Alanine Aminotransferase (ALT/SGPT) 38 , Alkaline Phosphatase 65, C-Reactive Protein, Quantitative 2.8H, Pro-B-Type Natriuretic Peptide 60, Total Protein 7.0, Albumin 2.8L, Globulin 4.2, Albumin/ Globulin Ratio 0.7L, Triglycerides Level 382H, Cholesterol Level 138, LDL Cholesterol 73, HDL Cholesterol 24L, Cholesterol/HDL Ratio 5.8H, Vitamin B12 Level 370, Folate 19.3, Thyroid Stimulating Hormone (TSH) 0.717, Cortisol AM Sample 4.2 Height (Feet): 5 Height (Inches): 4.00 Weight (Pounds): 207 General Appearance: no apparent distress Cardiovascular: tachycardia Respiratory/Chest: decreased breath sounds Genitourinary/Rectal: other - supra pubic Elvin Robles MD Jun 22, 2018 13:55
--- NOTE | 2018-06-22 14:40 | Surgery Progress Note ---
Surgery Progress Note Subjective Additional Comments no acute events. waiting to have BM. had bowel regimen given and feels like its coming. no n/v/f/c. Objective Last 24 Hour Vital Signs Date Time Temp Pulse Resp B/P (MAP) Pulse Ox O2 Delivery O2 Flow Rate FiO2 06/22/18 12:00 Room Air 06/22/18 11:36 101 06/22/18 09:00 Room Air 06/22/18 08:00 Room Air 06/22/18 08:00 97.7 98 20 112/72 (85) 99 06/22/18 07:42 101 06/22/18 04:00 98.1 83 20 114/72 (86) 100 06/22/18 04:00 Room Air 06/22/18 04:00 86 06/22/18 00:00 87 06/22/18 00:00 Room Air 06/22/18 00:00 98.4 86 20 120/70 (87) 100 06/21/18 20:00 Room Air 06/21/18 20:00 97.9 103 20 110/71 (84) 100 06/21/18 19:09 107 06/21/18 16:00 97.6 101 20 112/79 (90) 100 06/21/18 16:00 Room Air 06/21/18 16:00 106 I&O Intake and Output 06/21/18 06/22/18 19:00 07:00 Intake Total 800 ml Output Total 500 ml 1200 ml Balance 300 ml -1200 ml Intake Oral 800 ml Output Urine Total 500 ml 1200 ml Dressing: dry Wound: clean Cardiovascular: RSR Respiratory: clear Abdomen: soft, distended, present bowel sounds Extremities: no tenderness, no cyanosis Laboratory Tests Test 06/22/18 04:50 06/22/18 14:00 White Blood Count 9.9 K/UL (4.8-10.8) Red Blood Count 4.51 M/UL (4.70-6.10) L Hemoglobin 12.6 G/DL (14.2-18.0) L Hematocrit 38.5 % (42.0-52.0) L Mean Corpuscular Volume 85 FL (80-99) Mean Corpuscular Hemoglobin 28.0 PG (27.0-31.0) Mean Corpuscular Hemoglobin Concent 32.9 G/DL (32.0-36.0) Red Cell Distribution Width 15.3 % (11.6-14.8) H Platelet Count 263 K/UL (150-450) Mean Platelet Volume 6.6 FL (6.5-10.1) Neutrophils (%) (Auto) 62.0 % (45.0-75.0) Lymphocytes (%) (Auto) 28.7 % (20.0-45.0) Monocytes (%) (Auto) 6.4 % (1.0-10.0) Eosinophils (%) (Auto) 1.9 % (0.0-3.0) Basophils (%) (Auto) 1.1 % (0.0-2.0) Sodium Level 134 MMOL/L (136-145) L Potassium Level 4.1 MMOL/L (3.5-5.1) Chloride Level 100 MMOL/L (98-107) Carbon Dioxide Level 22 MMOL/L (21-32) Anion Gap 12 mmol/L (5-15) Blood Urea Nitrogen 28 mg/dL (7-18) H Creatinine 0.5 MG/DL (0.55-1.30) L Estimat Glomerular Filtration Rate > 60 mL/min (>60) Glucose Level 227 MG/DL (74-106) #H Lactic Acid Level 1.00 mmol/L (0.4-2.0) Uric Acid 8.7 MG/DL (2.6-7.2) H Calcium Level 7.9 MG/DL (8.5-10.1) L Phosphorus Level 5.7 MG/DL (2.5-4.9) H Magnesium Level 1.7 MG/DL (1.8-2.4) L Total Bilirubin 0.2 MG/DL (0.2-1.0) Gamma Glutamyl Transpeptidase 32 U/L (5-85) Aspartate Amino Transf (AST/SGOT) 17 U/L (15-37) Alanine Aminotransferase (ALT/SGPT) 38 U/L (12-78) Alkaline Phosphatase 65 U/L (46-116) C-Reactive Protein, Quantitative 2.8 mg/dL (0.00-0.90) H Pro-B-Type Natriuretic Peptide 60 pg/mL (0-125) Total Protein 7.0 G/DL (6.4-8.2) Albumin 2.8 G/DL (3.4-5.0) L Globulin 4.2 g/dL Albumin/Globulin Ratio 0.7 (1.0-2.7) L Triglycerides Level 382 MG/DL (30-150) H Cholesterol Level 138 MG/DL (< 200) LDL Cholesterol 73 mg/dL (<100) HDL Cholesterol 24 MG/DL (40-60) L Cholesterol/HDL Ratio 5.8 (3.3-4.4) H Vitamin B12 Level 370 PG/ML (193-986) Folate 19.3 NG/ML (8.6-58.9) Thyroid Stimulating Hormone (TSH) 0.717 uiU/mL (0.358-3.740) Cortisol AM Sample 4.2 UG/DL Urine Osmolality Pending Urine Random Sodium 31 mmol/L (20-110) Plan Problems: (1) Abnormal urogenital findings (2) Paraplegia (3) Spina bifida (4) Diabetes mellitus (5) Limited mobility in bed (6) Sepsis (7) Uncontrolled diabetes mellitus (8) Abdominal distension Assessment & Plan: stable as compared to prior exam still constipated needs bowel regimen KUB ordered will follow with serial exam and recs thank you (9) Decubitus skin ulcer Assessment & Plan: Pt presented on admission with multiple partial thickness pressure injuries secondary to shearing R,L Buttocks ,Scrotum and both ischial regions. Moisture related intertrigo noted to L groin and abd panus.All affected areas cleansed with Soap and water .Triad Paste applied to affected areas including pressure areas on buttocks and both ischail areas. Tx.plan: Apply Triad paste to abd fols, Both groin,Scrotum and Buttocks with each perineal care. Reposition At least every 2hours or as tolerated. Off-Load heels with Pillow. (10) Intractable back pain Endy De La Rosa Jun 22, 2018 14:40
[2018-06-22 16:00] VITALS: BP 118/77
--- NOTE | 2018-06-22 16:00 | Consultation ---
DATE OF CONSULTATION: 06/22/2018 UROLOGY CONSULTATION: CONSULTING PHYSICIAN: Gus Benjamin M.D. ATTENDING/REFERRING PHYSICIAN: John Estevez M.D. CHIEF COMPLAINT/HISTORY OF PRESENT ILLNESS: I was asked by Dr. Estevez to evaluate this 42-year-old gentleman with a history of neurogenic bladder secondary to spina bifida regarding bladder spasm and the need for SP tube change. Briefly, the patient has a history of spina bifida and resultant quadriplegia from . He has a neurogenic bladder secondary to same. This was initially managed with in and out catheterization, but eventually he was switched to suprapubic catheter. The patient normally takes Ditropan twice a day to manage bladder spasms. He has had recurrent urinary tract infections as could be expected with a suprapubic catheter. He presents to the hospital with bladder spasm after having been off of Ditropan for 2 weeks' time. He is also noted to have evidence of urinary tract infection and elevated lactic acid. Given the above, I was asked to evaluate the patient. PAST MEDICAL HISTORY: 1. Spina bifida/quadriplegia. 2. Neurogenic bladder and bladder spasm secondary to same. 3. Diabetes mellitus. PAST SURGICAL HISTORY: SP tube placement. MEDICATIONS: Please see chart for current medications administration details. Briefly, the patient is receiving oxybutynin 5 mg 3 t.i.d. now. He also received amikacin for antibiotic coverage. ALLERGIES: Include Cipro, Haldol, risperidone, and senna. SOCIAL HISTORY: Unremarkable tobacco, alcohol, or drug use. FAMILY HISTORY: Noncontributory. REVIEW OF SYSTEMS: A 14-system review of systems essentially unremarkable outside what was described above. PHYSICAL EXAMINATION: GENERAL: The patient is a middle-aged gentleman, awake, alert, oriented x4, pleasant, no obvious distress. HEENT: NC/AT. EOMI. Oropharynx clear. NECK: Supple. CHEST: Within normal limits. ABDOMEN: Soft, somewhat obese, nontender, nondistended. SP tube site clean, dry, intact. Tube with somewhat cloudy urine output. EXTREMITIES: Warm and well perfused. No cyanosis, clubbing, or edema. BACK: No current CVA tenderness to percussion. NEUROLOGIC: Notable for quadriplegia. GENITOURINARY: Reveals a normal male phallus and testes with no discharge, lesions, curvature, or masses. LABORATORY DATA: White blood cell count 9.9, down from 14.3 on admission, hematocrit 38.5, platelets 263. Sodium 134, potassium 4.1, chloride 100, bicarbonate 22, BUN 28, creatinine 0.5, glucose 227. Uric acid 8.7, calcium 7.9. LFTs within normal limits. Lactic acid 1.0, down from 5.1 on admission. Urinalysis, specific gravity 1.005, pH 7.0. Dip test notable for 3+ protein, 4+ glucose, 4+ blood, positive nitrites, 3+ leukocyte esterase. Microanalysis with 10 to 15 red and 5 to 10 white blood cells per high-power field and few bacteria seen. Blood cultures no growth. Urine culture pending. DIAGNOSTIC IMAGING: Chest x-ray with osteopenia and opacities at the left base and blunting of the costophrenic sulcus, possibly related to scarring and chronic pleural thickening. ASSESSMENT AND PLAN: In summary, the patient is a 42-year-old with a history of spina bifida and quadriplegia secondary to same. This resulted in neurogenic bladder which is managed with suprapubic catheter. This is the cause of recurrent urinary tract infections. The patient also takes Ditropan for bladder spasm, but has been off this medication. He now presents to the hospital for treatment of the same and urinary tract infection. Physical exam reveals a debilitated quadriplegic gentleman with cloudy suprapubic catheter output. Laboratory data notable for an elevated white blood cell count and lactic acid, which have normalized. There is no relevant diagnostic imaging. Today at the bedside, I changed the patient's suprapubic catheter and irrigated out his bladder. He should be continue on antibiotics. I will increase his oxybutynin to higher dose per his regular regimen. Thank you for allowing me to participate in the care of this unfortunate gentleman. Please do not hesitate to contact me with any questions that you may further have regarding his care. I will see him with you as needed. Gus Benjamin M.D. DR: SARAH JOB#: [id number] CC:
[2018-06-22] MEDS ORDERED: Tubing IV Secondary IV ONE (16:59)
--- NOTE | 2018-06-22 19:15 | History and Physical Report ---
DATE OF ADMISSION: 06/20/2018 NOTE: POOR AUDIO I am covering for Dr. Srini Cox. This is Dr. Srini Cox's patient. HISTORY OF PRESENT ILLNESS: The patient admitted for weakness, dehydration, and also elevated blood sugar and continued bladder pain. The patient . The patient was recently discharged and came back for the above-mentioned reasons. The patient denies nausea, vomiting, or diarrhea. Denies shortness of breath. Denies cough. PAST MEDICAL HISTORY: MS, constipation, chronic pain syndrome, NIDDM, mood disorder, history of bladder spasm, history of , spinal bifida and paraplegia. PAST SURGICAL HISTORY: Surgery related to MS. ALLERGIES: Cipro, Haldol, risperidone, senna. MEDICATIONS: Heparin, gabapentin, metformin, metoprolol, . SOCIAL HISTORY: Denies history of smoking, drinking, or drug use. REVIEW OF SYSTEMS: HEENT: Denies headaches. RESPIRATORY: Denies shortness of breath. Denies cough. CARDIOVASCULAR: Denies chest pain. ABDOMEN: Denies nausea, vomiting, or diarrhea. EXTREMITIES: Does have chronic pain syndrome. 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 The patient feels very weak. FAMILY HISTORY: Noncontributory. PHYSICAL EXAMINATION: VITAL SIGNS: Temperature 97.6, heart rate 106, and blood pressure 124/87. HEENT: PERRLA. NECK: Supple. No lymphadenopathy. CHEST: Clear to auscultation. CARDIOVASCULAR: Regular rate and rhythm. No murmurs or extra sounds. GASTROINTESTINAL: Soft, nontender, and nondistended. Bowel sounds positive. . LABORATORY DATA: , sodium 139, potassium 4.2, BUN of 16, creatinine 0.8. ASSESSMENT AND PLAN: Uncontrolled diabetes mellitus, hyponatremia, , hyperglycemia, chronic pain syndrome, bladder spasm, bladder pain. I have asked as well as Dr. Rossi, Dr. Robles, and Dr. Daniel Murcia to see the patient for the above-mentioned diagnoses and treatment. John Estevez M.D. DR: ALICE JOB#: [id number] CC:
[2018-06-22 20:00] VITALS: BP 128/70
[2018-06-22] MEDS ORDERED: Milk of Magnesia 30ml Ud ORAL PRN (20:00)
--- NOTE | 2018-06-22 20:06 | General Progress Note ---
Assessment/Plan Problem List: (1) Paraplegia ICD Codes: G82.20 - Paraplegia, unspecified SNOMED: 24496978 (2) Sepsis ICD Codes: A41.9 - Sepsis, unspecified organism SNOMED: 68576532 (3) Diabetes mellitus ICD Codes: E11.9 - Type 2 diabetes mellitus without complications SNOMED: 17198411 (4) Spina bifida ICD Codes: Q05.9 - Spina bifida, unspecified SNOMED: 91120755 (5) Bladder spasm ICD Codes: N32.89 - Other specified disorders of bladder SNOMED: 748617277 (6) Intractable back pain ICD Codes: M54.9 - Dorsalgia, unspecified SNOMED: 524853391 (7) Decubitus skin ulcer ICD Codes: L89.90 - Pressure ulcer of unspecified site, unspecified stage SNOMED: 060026561 (8) Abdominal distension ICD Codes: R14.0 - Abdominal distension (gaseous) SNOMED: 52005027 Status: progressing Assessment: consulted urologist for bladder spasm and urine incontinence afebrile chronic pain syndrome afebrile paraplegia Subjective ROS Limited/Unobtainable: Yes Allergies: Coded Allergies: CIPROFLOXACIN (Verified Allergy, Unknown, 06/14/18) HALOPERIDOL (Verified Allergy, Unknown, 06/14/18) RISPERIDONE (Verified Allergy, Unknown, 06/14/18) SENNA (Verified Allergy, Unknown, 06/14/18) Objective Last 24 Hour Vital Signs Date Time Temp Pulse Resp B/P (MAP) Pulse Ox O2 Delivery O2 Flow Rate FiO2 06/22/18 16:00 Room Air 06/22/18 16:00 99.4 91 20 118/77 (91) 98 06/22/18 15:25 94 06/22/18 12:00 97.2 97 20 116/70 (85) 100 06/22/18 12:00 Room Air 06/22/18 11:36 101 06/22/18 09:00 Room Air 06/22/18 08:00 Room Air 06/22/18 08:00 97.7 98 20 112/72 (85) 99 06/22/18 07:42 101 06/22/18 04:00 98.1 83 20 114/72 (86) 100 06/22/18 04:00 Room Air 06/22/18 04:00 86 06/22/18 00:00 87 06/22/18 00:00 Room Air 06/22/18 00:00 98.4 86 20 120/70 (87) 100 Intake and Output 06/21/18 06/22/18 19:00 07:00 Intake Total 800 ml Output Total 500 ml 1200 ml Balance 300 ml -1200 ml Intake Oral 800 ml Output Urine Total 500 ml 1200 ml Laboratory Tests 06/22/18 04:50: White Blood Count 9.9, Red Blood Count 4.51L, Hemoglobin 12.6L, Hematocrit 38.5L , Mean Corpuscular Volume 85, Mean Corpuscular Hemoglobin 28.0, Mean Corpuscular Hemoglobin Concent 32.9, Red Cell Distribution Width 15.3H, Platelet Count 263, Mean Platelet Volume 6.6, Neutrophils (%) (Auto) 62.0, Lymphocytes (%) (Auto) 28.7, Monocytes (%) (Auto) 6.4, Eosinophils (%) (Auto) 1.9, Basophils (%) (Auto) 1.1, Sodium Level 134L, Potassium Level 4.1, Chloride Level 100, Carbon Dioxide Level 22, Anion Gap 12, Blood Urea Nitrogen 28H, Creatinine 0.5L, Estimat Glomerular Filtration Rate > 60, Glucose Level 227#H, Lactic Acid Level 1.00, Uric Acid 8.7H, Calcium Level 7.9L, Phosphorus Level 5.7H, Magnesium Level 1.7L, Total Bilirubin 0.2, Gamma Glutamyl Transpeptidase 32, Aspartate Amino Transf (AST/SGOT) 17, Alanine Aminotransferase (ALT/SGPT) 38 , Alkaline Phosphatase 65, C-Reactive Protein, Quantitative 2.8H, Pro-B-Type Natriuretic Peptide 60, Total Protein 7.0, Albumin 2.8L, Globulin 4.2, Albumin/ Globulin Ratio 0.7L, Triglycerides Level 382H, Cholesterol Level 138, LDL Cholesterol 73, HDL Cholesterol 24L, Cholesterol/HDL Ratio 5.8H, Vitamin B12 Level 370, Folate 19.3, Thyroid Stimulating Hormone (TSH) 0.717, Cortisol AM Sample 4.2 06/22/18 14:00: Urine Osmolality 416L, Urine Random Sodium 31 Height (Feet): 5 Height (Inches): 4.00 Weight (Pounds): 207 Cardiovascular: normal rate Respiratory/Chest: lungs clear Abdomen: soft John Estevez MD Jun 22, 2018 20:06
[2018-06-22] MEDS ORDERED: TraZODone 50mg tab ORAL PRN (21:00)
[2018-06-23] VITALS: BP 139/78
[2018-06-23] MEDS: LORazepam 1mg tab ORAL PRN ×3 (00:54→16:46)
[2018-06-23] MEDS: Morphine Sulfate 4mg/ml Inj (IV USE ONLY) IVP PRN ×5 (01:53→19:00)
[2018-06-23 04:00] VITALS: BP 132/68
[2018-06-23] MEDS: NovoLOG Insulin Flexpen SUBQ SCH ×7 (07:16→21:46)
[2018-06-23 08:00] VITALS: BP 119/73
[2018-06-23 08:56] LABS: ALANINE AMINOTRANSFERASE 40 U/L (12-78); ALBUMIN 2.8 G/DL (3.4-5.0); ALBUMIN/GLOBULIN RATIO 0.6 (1.0-2.7); ALKALINE PHOSPHATASE 68 U/L (46-116); ANION GAP 5 mmol/L (5-15); ASPARTATE AMINO TRANSFERASE 17 U/L (15-37); BILIRUBIN,TOTAL 0.1 MG/DL (0.2-1.0); BLOOD UREA NITROGEN 25 mg/dL (7-18); CALCIUM 8.1 MG/DL (8.5-10.1); CARBON DIOXIDE 23 MMOL/L (21-32); CHLORIDE 97 MMOL/L (98-107); CREATININE 0.7 MG/DL (0.55-1.30); PHOSPHORUS 3.7 MG/DL (2.5-4.9); POTASSIUM 4.1 MMOL/L (3.5-5.1); SODIUM 125 MMOL/L (136-145)
--- NOTE | 2018-06-23 08:58 | Pulmonology Progress Note ---
Assessment/Plan Assessment/Plan ASSESSMENT Lactic acidosis Diabetes mellitus out of control Bacteremia Hyponatremia Hypertriglyceridemia Multiply partial-thickness pressure injuries, present on admission Spina bifida Paraplegia Chronic suprapubic catheter Multiple sclerosis PLAN OF CARE IV fluid BCX 03/09 + GPC leukocytosis resolved . 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 : hold metformin due to lactic acidosis , continue Levemir, NovoLog pre-meal and SSI as needed [id number] clearly not at goal hyponatremia was likely due to hyperglycemia as per marker hand marker hand followed sodium trending up up lipid panel with elevated triglycerides started on TriCor patient was educated on low-fat low-cholesterol diabetic diet and adherence with diet monitor renal parameters and electrolytes, correct electrolytes as needed wound care as per surgeon recommendation s/p catheter changed by urologist on 06/22 GI prophylaxis bowel regimen supportive care DNR/DNI status case discussed and evaluated by supervising physician Subjective Allergies: Coded Allergies: CIPROFLOXACIN (Verified Allergy, Unknown, 06/14/18) HALOPERIDOL (Verified Allergy, Unknown, 06/14/18) RISPERIDONE (Verified Allergy, Unknown, 06/14/18) SENNA (Verified Allergy, Unknown, 06/14/18) Subjective no fevers, leukocytosis resolved 06/22 labs for this am pending no signs of resp distress, declined abx s/p cath changed 06/22 reports constipation, requesting Fleet enema Objective Last 24 Hour Vital Signs Date Time Temp Pulse Resp B/P (MAP) Pulse Ox O2 Delivery O2 Flow Rate FiO2 06/23/18 04:00 97.9 97 20 132/68 (89) 99 06/23/18 04:00 94 06/23/18 00:00 105 06/23/18 00:00 97.6 106 18 139/78 (98) 100 06/22/18 20:00 93 06/22/18 20:00 97.0 93 18 128/70 (89) 99 06/22/18 20:00 Room Air 06/22/18 16:00 Room Air 06/22/18 16:00 99.4 91 20 118/77 (91) 98 06/22/18 15:25 94 06/22/18 12:00 97.2 97 20 116/70 (85) 100 06/22/18 12:00 Room Air 06/22/18 11:36 101 06/22/18 09:00 Room Air Intake and Output 06/22/18 06/23/18 19:00 07:00 Intake Total 840 ml 193 ml Output Total 600 ml 1400 ml Balance 240 ml -1207 ml Intake Oral 690 ml 118 ml IV Total 150 ml 75 ml Output Urine Total 600 ml 1400 ml General Appearance: no acute distress, other - awake, alert, priented HEENT: normocephalic, atraumatic, anicteric, mucous membranes moist Respiratory/Chest: lungs clear, no accessory muscle use Cardiovascular: normal rate - SR on tele , regular rhythm Abdomen: soft, non tender - obese Extremities: other - s/p catehter with sean urine Neurologic/Psychiatric: abnormal gait - paraplegia , alert, responsive Musculoskeletal: atrophy - BLE, edema +1 bilateral foot Microbiology Date/Time Source Procedure Growth Status 06/20/18 20:59 Blood Blood Culture - Preliminary Gram Positive Cocci Resulted 06/20/18 20:52 Blood Blood Culture - Preliminary NO GROWTH AFTER 48 HOURS Resulted 06/20/18 23:00 Nasal Nares MRSA Culture - Final Complete Laboratory Tests 06/22/18 14:00: Urine Osmolality 416L, Urine Random Sodium 31 06/23/18 08:00: Sodium Level [Pending], Potassium Level [Pending], Chloride Level [Pending], Carbon Dioxide Level [Pending], Blood Urea Nitrogen [Pending], Creatinine [ Pending], Estimat Glomerular Filtration Rate [Pending], Glucose Level [Pending] , Hemoglobin A1c 9.2H, Osmolality [Pending], Uric Acid [Pending], Calcium Level [Pending], Phosphorus Level [Pending], Magnesium Level [Pending], Total Bilirubin [Pending], Aspartate Amino Transf (AST/SGOT) [Pending], Alanine Aminotransferase (ALT/SGPT) [Pending], Alkaline Phosphatase [Pending], Total Protein [Pending], Albumin [Pending], Globulin [Pending] Current Medications Medications (Trade) Dose Ordered Sig/Trevin Route PRN Reason Start Time Stop Time Status Last Admin Dose Admin Dextrose (Dextrose 50%) 25 ml Q30M PRN IV Hypoglycemia 06/22/18 16:45 07/21/18 06:44 Dextrose (Dextrose 50%) 50 ml Q30M PRN IV Hypoglycemia 06/22/18 16:45 07/21/18 06:44 Docusate Sodium (Colace) 100 mg TID ORAL 06/22/18 18:00 07/21/18 08:59 06/22/18 17:58 Fenofibrate (Tricor) 145 mg DAILY ORAL 06/23/18 09:00 07/22/18 14:29 Gabapentin (Neurontin) 100 mg BID ORAL 06/22/18 18:00 07/21/18 08:59 06/22/18 17:58 Heparin Sodium (Porcine) (Heparin 5000 units/ml) 5,000 units EVERY 12 HOURS SUBQ 06/22/18 21:00 07/21/18 08:59 06/22/18 21:44 Hydromorphone HCl (Dilaudid) 4 mg Q4H PRN ORAL pain 7-10 06/22/18 17:00 06/28/18 16:59 Insulin Aspart (NovoLOG) BEFORE MEALS AND HS SUBQ 06/22/18 16:30 07/21/18 06:29 06/23/18 07:17 Insulin Aspart (NovoLOG) 10 units NOVOTIAC SUBQ 06/22/18 16:50 07/21/18 06:44 06/23/18 07:16 Insulin Detemir (Levemir) 30 units DAILY SUBQ 06/23/18 09:00 07/21/18 08:59 Lactulose (Cephulac) 30 gm THREE TIMES A DAY ORAL 06/22/18 18:00 07/21/18 08:59 06/22/18 17:58 Lorazepam (Ativan) 1 mg Q6H PRN ORAL For Anxiety 06/22/18 17:00 06/28/18 16:59 06/23/18 00:54 Magnesium Hydroxide (Mom) 30 ml HSPRN PRN ORAL Constipation 06/22/18 20:00 07/22/18 19:59 Methadone HCl (Methadone HCl) 15 mg EVERY 8 HOURS ORAL 06/22/18 22:00 06/28/18 05:59 06/23/18 07:10 Morphine Sulfate (Morphine Sulfate) 4 mg Q4H PRN IVP For Pain 06/22/18 17:15 06/28/18 01:14 06/23/18 07:05 Oxybutynin Chloride (Ditropan) 10 mg BID ORAL 06/22/18 18:00 07/22/18 08:59 06/22/18 17:58 Pantoprazole (Protonix) 40 mg EVERY 12 HOURS ORAL 06/22/18 21:00 07/21/18 20:59 06/22/18 21:44 Sodium Chloride 1,000 ml @ 75 mls/hr [id number] IV 06/22/18 16:30 07/22/18 14:14 06/23/18 05:50 Tizanidine HCl (Zanaflex) 2 mg Q12H PRN ORAL spasm 06/22/18 17:00 07/21/18 16:59 Trazodone HCl (Desyrel) 50 mg HSPRN PRN ORAL insomia 06/22/18 21:00 07/22/18 20:59 06/22/18 21:43 Vancomycin HCl (Vanco rx to dose) 1 ea DAILY PRN MISC Per rx protocol 06/23/18 08:45 07/23/18 08:44 Claudia Dias NP Jun 23, 2018 08:58
[2018-06-23] MEDS: Lactulose 20gm/30ml UDC ORAL SCH ×4 (09:00→17:18)
[2018-06-23] MEDS ORDERED: Levemir Flexpen SUBQ SCH (09:00)
[2018-06-23] MEDS: Oxybutynin 5mg tab ORAL SCH ×2 (09:02→17:19)
[2018-06-23] MEDS: Docusate 100mg cap ORAL SCH ×3 (09:03→17:18)
[2018-06-23] MEDS: Heparin 5000 units/ml inj SUBQ SCH ×2 (09:05→21:50)
[2018-06-23] MEDS: Vancomycin 1.5gm Premix IVPB SCH ×2 (10:00→11:12)
[2018-06-23] MEDS: Levemir Flexpen SUBQ SCH ×2 (10:10→17:22)
--- NOTE | 2018-06-23 10:10 | General Progress Note ---
Assessment/Plan Problem List: (1) Uncontrolled diabetes mellitus ICD Codes: E11.65 - Type 2 diabetes mellitus with hyperglycemia SNOMED: 37180281, 176075027 (2) Paraplegia ICD Codes: G82.20 - Paraplegia, unspecified SNOMED: 74180605 (3) Spina bifida ICD Codes: Q05.9 - Spina bifida, unspecified SNOMED: 90379167 Assessment: increase Levemir to 25 units bid increase Novolog to 15 units tid continue NISS ac / hs Subjective ROS Limited/Unobtainable: Yes Allergies: Coded Allergies: CIPROFLOXACIN (Verified Allergy, Unknown, 06/14/18) HALOPERIDOL (Verified Allergy, Unknown, 06/14/18) RISPERIDONE (Verified Allergy, Unknown, 06/14/18) SENNA (Verified Allergy, Unknown, 06/14/18) Subjective glucose values are elevated Item Value Date Time Bedside Blood Glucose 370 mg/dl H 06/23/18 0630 Bedside Blood Glucose 354 mg/dl H 06/22/18 2225 Bedside Blood Glucose 304 mg/dl H 06/22/18 1820 Bedside Blood Glucose 370 mg/dl H 06/22/18 1222 Objective Last 24 Hour Vital Signs Date Time Temp Pulse Resp B/P (MAP) Pulse Ox O2 Delivery O2 Flow Rate FiO2 06/23/18 04:00 97.9 97 20 132/68 (89) 99 06/23/18 04:00 94 06/23/18 00:00 105 06/23/18 00:00 97.6 106 18 139/78 (98) 100 06/22/18 20:00 93 06/22/18 20:00 97.0 93 18 128/70 (89) 99 06/22/18 20:00 Room Air 06/22/18 16:00 Room Air 06/22/18 16:00 99.4 91 20 118/77 (91) 98 06/22/18 15:25 94 06/22/18 12:00 97.2 97 20 116/70 (85) 100 06/22/18 12:00 Room Air 06/22/18 11:36 101 Intake and Output 06/22/18 06/23/18 19:00 07:00 Intake Total 840 ml 193 ml Output Total 600 ml 1400 ml Balance 240 ml -1207 ml Intake Oral 690 ml 118 ml IV Total 150 ml 75 ml Output Urine Total 600 ml 1400 ml Laboratory Tests 06/22/18 14:00: Urine Osmolality 416L, Urine Random Sodium 31 06/23/18 08:00: Sodium Level 125L, Potassium Level 4.1, Chloride Level 97L, Carbon Dioxide Level 23, Anion Gap 5, Blood Urea Nitrogen 25H, Creatinine 0.7, Estimat Glomerular Filtration Rate > 60, Glucose Level 381#H, Hemoglobin A1c 9.2H, Osmolality 306, Uric Acid 7.0, Calcium Level 8.1L, Phosphorus Level 3.7, Magnesium Level 2.1, Total Bilirubin 0.1L, Aspartate Amino Transf (AST/SGOT) 17 , Alanine Aminotransferase (ALT/SGPT) 40, Alkaline Phosphatase 68, Total Protein 7.3, Albumin 2.8L, Globulin 4.5, Albumin/Globulin Ratio 0.6L Height (Feet): 5 Height (Inches): 4.00 Weight (Pounds): 207 General Appearance: no apparent distress Neck: normal alignment Respiratory/Chest: lungs clear Abdomen: normal bowel sounds Objective Current Medications Medications (Trade) Dose Ordered Sig/Trevin Route PRN Reason Start Time Stop Time Status Last Admin Dose Admin Dextrose (Dextrose 50%) 25 ml Q30M PRN IV Hypoglycemia 06/22/18 16:45 07/21/18 06:44 Dextrose (Dextrose 50%) 50 ml Q30M PRN IV Hypoglycemia 06/22/18 16:45 07/21/18 06:44 Docusate Sodium (Colace) 100 mg TID ORAL 06/22/18 18:00 07/21/18 08:59 06/23/18 09:03 Fenofibrate (Tricor) 145 mg DAILY ORAL 06/23/18 09:00 07/22/18 14:29 Gabapentin (Neurontin) 100 mg BID ORAL 06/22/18 18:00 07/21/18 08:59 06/23/18 09:03 Heparin Sodium (Porcine) (Heparin 5000 units/ml) 5,000 units EVERY 12 HOURS SUBQ 06/22/18 21:00 07/21/18 08:59 06/23/18 09:05 Hydromorphone HCl (Dilaudid) 4 mg Q4H PRN ORAL pain 7-10 06/22/18 17:00 06/28/18 16:59 Insulin Aspart (NovoLOG) BEFORE MEALS AND HS SUBQ 06/22/18 16:30 5/18/19 06:29 06/23/18 07:17 Insulin Aspart (NovoLOG) 10 units NOVOTIAC SUBQ 06/22/18 16:50 07/21/18 06:44 06/23/18 07:16 Insulin Detemir (Levemir) 30 units DAILY SUBQ 06/23/18 09:00 07/21/18 08:59 Lactulose (Cephulac) 30 gm THREE TIMES A DAY ORAL 06/22/18 18:00 07/21/18 08:59 06/23/18 09:01 Lorazepam (Ativan) 1 mg Q6H PRN ORAL For Anxiety 06/22/18 17:00 06/28/18 16:59 06/23/18 09:00 Magnesium Hydroxide (Mom) 30 ml HSPRN PRN ORAL Constipation 06/22/18 20:00 07/22/18 19:59 Methadone HCl (Methadone HCl) 15 mg EVERY 8 HOURS ORAL 06/22/18 22:00 06/28/18 05:59 06/23/18 07:10 Morphine Sulfate (Morphine Sulfate) 4 mg Q4H PRN IVP For Pain 06/22/18 17:15 06/28/18 01:14 06/23/18 07:05 Oxybutynin Chloride (Ditropan) 10 mg BID ORAL 06/22/18 18:00 07/22/18 08:59 06/23/18 09:02 Pantoprazole (Protonix) 40 mg EVERY 12 HOURS ORAL 06/22/18 21:00 07/21/18 20:59 06/23/18 09:02 Sodium Chloride 1,000 ml @ 75 mls/hr [id number] IV 06/22/18 16:30 07/22/18 14:14 06/23/18 05:50 Sodium Phosphate (Fleet's Sodium Phosl Enema) 133 ml DAILYPRN PRN RECTAL constipation 06/23/18 09:00 07/23/18 08:59 Tizanidine HCl (Zanaflex) 2 mg Q12H PRN ORAL spasm 06/22/18 17:00 07/21/18 16:59 Trazodone HCl (Desyrel) 50 mg HSPRN PRN ORAL insomia 06/22/18 21:00 07/22/18 20:59 06/22/18 21:43 Vancomycin HCl (Vanco rx to dose) 1 ea DAILY PRN MISC Per rx protocol 06/23/18 08:45 07/23/18 08:44 Vancomycin HCl/ Dextrose 275 ml @ 137.5 mls/ hr ONCE IVPB 06/23/18 10:00 06/23/18 11:00 Arden Rossi MD Jun 23, 2018 10:10
--- NOTE | 2018-06-23 10:26 | Diagnostic Imaging Report ---
EXAM: XR Abdomen, 1 Views CLINICAL HISTORY: ABD DIST TECHNIQUE: Frontal view of the abdomen/pelvis . COMPARISON: KUB 06/15/18. FINDINGS: Gastrointestinal tract: Moderate stool and gas in the colon may be constipation. Few nonspecific small bowel loops in the right abdomen. No definite bowel obstruction. Bones/joints: Wilver rods of the spine. IMPRESSION: Moderate stool and gas in the colon may be constipation. Few nonspecific small bowel loops in the right abdomen. No definite bowel obstruction.
[2018-06-23 12:00] VITALS: BP 127/64
[2018-06-23 16:00] VITALS: BP 112/70
[2018-06-23] MEDS ORDERED: Milk of Magnesia 30ml Ud ORAL PRN (17:00)
--- NOTE | 2018-06-23 17:00 | Surgery Progress Note ---
Surgery Progress Note Subjective Additional Comments no acute events. exam stable. leukocytosis improved. electrolytes abnormal. a1c noted Objective Last 24 Hour Vital Signs Date Time Temp Pulse Resp B/P (MAP) Pulse Ox O2 Delivery O2 Flow Rate FiO2 06/23/18 12:00 84 06/23/18 12:00 98.2 91 21 127/64 (85) 94 06/23/18 09:00 Room Air 06/23/18 08:00 99 06/23/18 08:00 98.3 101 20 119/73 (88) 99 06/23/18 04:00 97.9 97 20 132/68 (89) 99 06/23/18 04:00 94 06/23/18 00:00 105 06/23/18 00:00 97.6 106 18 139/78 (98) 100 06/22/18 20:00 93 06/22/18 20:00 97.0 93 18 128/70 (89) 99 06/22/18 20:00 Room Air I&O Intake and Output 06/22/18 06/23/18 19:00 07:00 Intake Total 840 ml 268 ml Output Total 600 ml 1400 ml Balance 240 ml -1132 ml Intake Oral 690 ml 118 ml IV Total 150 ml 150 ml Output Urine Total 600 ml 1400 ml Dressing: other Wound: other Drains: other Cardiovascular: RSR Respiratory: decreased breath sounds Abdomen: soft, distended, non-tender, present bowel sounds Extremities: no tenderness, no cyanosis Laboratory Tests Test 06/23/18 08:00 Sodium Level 125 MMOL/L (136-145) L Potassium Level 4.1 MMOL/L (3.5-5.1) Chloride Level 97 MMOL/L (98-107) L Carbon Dioxide Level 23 MMOL/L (21-32) Anion Gap 5 mmol/L (5-15) Blood Urea Nitrogen 25 mg/dL (7-18) H Creatinine 0.7 MG/DL (0.55-1.30) Estimat Glomerular Filtration Rate > 60 mL/min (>60) Glucose Level 381 MG/DL (74-106) #H Hemoglobin A1c 9.2 % (4.3-6.0) H Osmolality 306 mOsm/kg (297-317) Uric Acid 7.0 MG/DL (2.6-7.2) Calcium Level 8.1 MG/DL (8.5-10.1) L Phosphorus Level 3.7 MG/DL (2.5-4.9) Magnesium Level 2.1 MG/DL (1.8-2.4) Total Bilirubin 0.1 MG/DL (0.2-1.0) L Aspartate Amino Transf (AST/SGOT) 17 U/L (15-37) Alanine Aminotransferase (ALT/SGPT) 40 U/L (12-78) Alkaline Phosphatase 68 U/L (46-116) Total Protein 7.3 G/DL (6.4-8.2) Albumin 2.8 G/DL (3.4-5.0) L Globulin 4.5 g/dL Albumin/Globulin Ratio 0.6 (1.0-2.7) L Plan Problems: (1) Abnormal urogenital findings (2) Paraplegia (3) Spina bifida (4) Diabetes mellitus Assessment & Plan: DAILY ESTIMATED NEEDS: Needs based on Quadriplegia, wound 65.5kg adj 23-28 kcals/kg 9374-5490 total kcals 1.25-1.5 g protein/kg 82-98 g total protein 25-30 mL/kg 5303-6561 total fluid mLs NUTRITION DIAGNOSIS: 1) Increased protein needs r/t wound healing and h/o quadriplegia as evidenced by pt w/ h/o stage 3 ischial wound and resolving sacral wound. 2) Altered nutrition related lab values r/t diabetes as evidenced by elev BG (633, 395) and elev POC, Uglu 4+ on adm. [facility] PO DIET RECOMMENDATIONS: DIET CHANGE-> -> [facility] LOW W/ DOUBLE PROTEIN PORTIONS ADDITIONAL RECOMMENDATIONS: 1) Wound care: add JIM BID + VIT C 250mg BID + MVI x1 daily 2) Check A1C 3) RE-calibrate bed scale for accurate CWB 4) F/up w/ WC eval (5) Limited mobility in bed (6) Sepsis (7) Uncontrolled diabetes mellitus (8) Abdominal distension Assessment & Plan: stable as compared to prior exam still constipated needs bowel regimen KUB noted will follow with serial exam and recs thank you (9) Decubitus skin ulcer Assessment & Plan: Pt presented on admission with multiple partial thickness pressure injuries secondary to shearing R,L Buttocks ,Scrotum and both ischial regions. Moisture related intertrigo noted to L groin and abd panus.All affected areas cleansed with Soap and water .Triad Paste applied to affected areas including pressure areas on buttocks and both ischail areas. Tx.plan: Apply Triad paste to abd fols, Both groin,Scrotum and Buttocks with each perineal care. Reposition At least every 2hours or as tolerated. Off-Load heels with Pillow. (10) Intractable back pain Endy De La Rosa Jun 23, 2018 17:00
[2018-06-23] MEDS: Fleet's Enema 133ml RECTAL PRN (17:03)
--- NOTE | 2018-06-23 18:44 | Nephrology Progress Note ---
Assessment/Plan Problem List: (1) Hyponatremia (2) Diabetes mellitus Assessment: OOC (3) Sepsis (4) Paraplegia Assessment HypoNatremia due to High Glucose / hyperglycemia Uncontrolled Dm UTI ? Sepsis ? suprepubic cath, High lactic level Spina bifida / Paraplegia Limited mobility MS Plan BS control Urine culture 3% saline tricor for high Trigs Monitor lytes per orders urine cultures Subjective ROS Limited/Unobtainable: No Constitutional: Reports: malaise Objective Objective Last 24 Hour Vital Signs Date Time Temp Pulse Resp B/P (MAP) Pulse Ox O2 Delivery O2 Flow Rate FiO2 06/23/18 16:00 98.6 93 20 112/70 (84) 100 06/23/18 16:00 88 06/23/18 12:00 84 06/23/18 12:00 98.2 91 21 127/64 (85) 94 06/23/18 09:00 Room Air 06/23/18 08:00 99 06/23/18 08:00 98.3 101 20 119/73 (88) 99 06/23/18 04:00 97.9 97 20 132/68 (89) 99 06/23/18 04:00 94 06/23/18 00:00 105 06/23/18 00:00 97.6 106 18 139/78 (98) 100 06/22/18 20:00 93 06/22/18 20:00 97.0 93 18 128/70 (89) 99 06/22/18 20:00 Room Air Intake and Output 06/22/18 06/23/18 19:00 07:00 Intake Total 840 ml 268 ml Output Total 600 ml 1400 ml Balance 240 ml -1132 ml Intake Oral 690 ml 118 ml IV Total 150 ml 150 ml Output Urine Total 600 ml 1400 ml Laboratory Tests 06/23/18 08:00: Sodium Level 125L, Potassium Level 4.1, Chloride Level 97L, Carbon Dioxide Level 23, Anion Gap 5, Blood Urea Nitrogen 25H, Creatinine 0.7, Estimat Glomerular Filtration Rate > 60, Glucose Level 381#H, Hemoglobin A1c 9.2H, Osmolality 306, Uric Acid 7.0, Calcium Level 8.1L, Phosphorus Level 3.7, Magnesium Level 2.1, Total Bilirubin 0.1L, Aspartate Amino Transf (AST/SGOT) 17 , Alanine Aminotransferase (ALT/SGPT) 40, Alkaline Phosphatase 68, Total Protein 7.3, Albumin 2.8L, Globulin 4.5, Albumin/Globulin Ratio 0.6L Height (Feet): 5 Height (Inches): 4.00 Weight (Pounds): 207 General Appearance: no apparent distress Objective no change Elvin Robles MD Jun 23, 2018 18:44
[2018-06-23] MEDS: Vancomycin 1gm/D5W 275ml IVPB SCH ×2 (19:00)
[2018-06-23] MEDS ORDERED: NaCl 3% 500ml 500 ML IV ONE (19:30)
[2018-06-23 20:00] VITALS: BP 153/76
[2018-06-23] MEDS: LORazepam Inj 2mg/ml 1ml IV PRN (22:02)
--- NOTE | 2018-06-23 22:15 | General Progress Note ---
Assessment/Plan Problem List: (1) Paraplegia ICD Codes: G82.20 - Paraplegia, unspecified SNOMED: 03192303 (2) Sepsis ICD Codes: A41.9 - Sepsis, unspecified organism SNOMED: 74902340 (3) Diabetes mellitus ICD Codes: E11.9 - Type 2 diabetes mellitus without complications SNOMED: 48091229 (4) Spina bifida ICD Codes: Q05.9 - Spina bifida, unspecified SNOMED: 66170996 (5) Bladder spasm ICD Codes: N32.89 - Other specified disorders of bladder SNOMED: 029197550 (6) Intractable back pain ICD Codes: M54.9 - Dorsalgia, unspecified SNOMED: 915985231 (7) Decubitus skin ulcer ICD Codes: L89.90 - Pressure ulcer of unspecified site, unspecified stage SNOMED: 423303663 (8) Abdominal distension ICD Codes: R14.0 - Abdominal distension (gaseous) SNOMED: 71520155 Assessment: consulted urologist for bladder spasm and urine incontinence afebrile chronic pain syndrome paraplegia psych patient on multiple psych meds bladder spasm consulted urologist for it Subjective ROS Limited/Unobtainable: Yes Allergies: Coded Allergies: CIPROFLOXACIN (Verified Allergy, Unknown, 06/14/18) HALOPERIDOL (Verified Allergy, Unknown, 06/14/18) RISPERIDONE (Verified Allergy, Unknown, 06/14/18) SENNA (Verified Allergy, Unknown, 06/14/18) Objective Last 24 Hour Vital Signs Date Time Temp Pulse Resp B/P (MAP) Pulse Ox O2 Delivery O2 Flow Rate FiO2 06/23/18 16:00 98.6 93 20 112/70 (84) 100 06/23/18 16:00 88 06/23/18 12:00 84 06/23/18 12:00 98.2 91 21 127/64 (85) 94 06/23/18 09:00 Room Air 06/23/18 08:00 99 06/23/18 08:00 98.3 101 20 119/73 (88) 99 06/23/18 04:00 97.9 97 20 132/68 (89) 99 06/23/18 04:00 94 06/23/18 00:00 105 06/23/18 00:00 97.6 106 18 139/78 (98) 100 Intake and Output 06/22/18 06/23/18 19:00 07:00 Intake Total 840 ml 268 ml Output Total 600 ml 1400 ml Balance 240 ml -1132 ml Intake Oral 690 ml 118 ml IV Total 150 ml 150 ml Output Urine Total 600 ml 1400 ml Laboratory Tests 06/23/18 08:00: Sodium Level 125L, Potassium Level 4.1, Chloride Level 97L, Carbon Dioxide Level 23, Anion Gap 5, Blood Urea Nitrogen 25H, Creatinine 0.7, Estimat Glomerular Filtration Rate > 60, Glucose Level 381#H, Hemoglobin A1c 9.2H, Osmolality 306, Uric Acid 7.0, Calcium Level 8.1L, Phosphorus Level 3.7, Magnesium Level 2.1, Total Bilirubin 0.1L, Aspartate Amino Transf (AST/SGOT) 17 , Alanine Aminotransferase (ALT/SGPT) 40, Alkaline Phosphatase 68, Total Protein 7.3, Albumin 2.8L, Globulin 4.5, Albumin/Globulin Ratio 0.6L Height (Feet): 5 Height (Inches): 4.00 Weight (Pounds): 207 Cardiovascular: normal rate Respiratory/Chest: lungs clear John Estevez MD Jun 23, 2018 22:15
--- NOTE | 2018-06-23 23:29 | Initial Psychiatric Evaluation ---
Psychiatry Consultation Psychiatry Consultation Chief Complaint: Male Urogenital Problems History of Present Illness: 42 yo male with hx of mmp, ms and depression who was admitted for medical stabilization. the pt is abusive and combative. the pt is using profanity and yelling through out the day. the pt is asking for IV ativan and pain meds. the pt was uncooperative with exam and was agitated. the was labile. Outside of the hospital the pt was prescribed antipsychotics. the pt denied past psych hx. Allergies: Coded Allergies: CIPROFLOXACIN (Verified Allergy, Unknown, 06/14/18) HALOPERIDOL (Verified Allergy, Unknown, 06/14/18) RISPERIDONE (Verified Allergy, Unknown, 06/14/18) SENNA (Verified Allergy, Unknown, 06/14/18) Medication History Scheduled Docusate Sodium* (Colace*), 100 MG ORAL DAILY, (Reported) Fluphenazine HCl (Fluphenazine HCl), 5 MG ORAL ONCE Gabapentin* (Gabapentin*), 100 MG ORAL BID Heparin Sodium,Porcine/Pf (Heparin 1,000 Unit/10 (100/ml)), 5,000 UNIT SQ Q12HR, (Reported) Insulin Aspart (Novolog Flexpen), 0 UNITS SUBQ BEFORE MEALS AND HS Insulin Detemir (Levemir Flexpen), 15 SUBQ BIDAC, (Reported) Lactulose (Lactulose*), 30 GM ORAL THREE TIMES A DAY Metformin Hcl* (Glucophage*), 500 MG ORAL TID, (Reported) Methadone Hcl* (Methadone*), 10 MG ORAL EVERY 8 HOURS Senna [place] Extract (Senna), 1.76 MG PO HS, (Reported) Scheduled PRN Hydromorphone Hcl (Hydromorphone Hcl), 4 MG ORAL Q4H PRN Magnesium Hydroxide* (Milk Of Magnesia*), 30 ML ORAL 3XW PRN for Constipation, ( Reported) Na Phos,M-B/Na Phos,Di-Ba* (Fleet Enema*), 133 ML RECTAL QOD PRN for Constipation, (Reported) Tizanidine Hcl (Zanaflex*), 2 MG ORAL Q12H PRN Trazodone Hcl (Desyrel), 50 MG ORAL QHS PRN Miscellaneous Medications [Novolog Ss], (Reported) Patient History History Provided By: Patient, Medical Record, PMD Objective Data Height (Feet): 5 Height (Inches): 4.00 Weight (Pounds): 207 Appearance: disheveled Behavior Mannerisms: good eye contact Mood: angry, anxious, agitated Thought Process: illogical, ruminations Suicidal Ideation: not present Assessment/Plan Problem List: (1) MDD (major depressive disorder), recurrent episode, moderate ICD Codes: F33.1 - Major depressive disorder, recurrent, moderate SNOMED: 37172863, 412728189 Status: unchanged Treatment Plan: abilify 10mg po qhs depakote 500mg po qhs trazadone prn Diagnosis [place] I: see above, rule out bipolar Grisel Cardona MD Jun 23, 2018 23:29
[2018-06-24] MEDS: Morphine Sulfate 4mg/ml Inj (IV USE ONLY) IVP PRN ×5 (01:24→20:47)
[2018-06-24] MEDS: Vancomycin 1gm/D5W 275ml IVPB SCH ×8 (03:00→18:39)
[2018-06-24] MEDS: LORazepam Inj 2mg/ml 1ml IV PRN ×4 (03:17→19:04)
[2018-06-24] MEDS: NovoLOG Insulin Flexpen SUBQ SCH ×7 (06:00→20:46)
[2018-06-24 08:00] VITALS: BP 139/79
[2018-06-24 08:18] LABS: BASOPHILS % (AUTO) 0.7 % (0.0-2.0); EOSINOPHILS % (AUTO) 1.6 % (0.0-3.0); HEMOGLOBIN 11.5 G/DL (14.2-18.0); LYMPHOCYTES % (AUTO) 23.9 % (20.0-45.0); MEAN CORPUSCULAR VOLUME 86 FL (80-99); MONOCYTES % (AUTO) 4.8 % (1.0-10.0); NEUTROPHILS % (AUTO) 68.9 % (45.0-75.0); PLATELET COUNT 198 K/UL (150-450); RED BLOOD COUNT 4.05 M/UL (4.70-6.10); RED CELL DISTRIBUTION WIDTH 15.2 % (11.6-14.8); WHITE BLOOD COUNT 6.5 K/UL (4.8-10.8)
[2018-06-24] MEDS: Docusate 100mg cap ORAL SCH ×3 (08:27→18:00)
[2018-06-24] MEDS: Oxybutynin 5mg tab ORAL SCH ×2 (08:27→18:19)
[2018-06-24] MEDS: Lactulose 20gm/30ml UDC ORAL SCH ×3 (08:27→18:00)
[2018-06-24] MEDS: Heparin 5000 units/ml inj SUBQ SCH ×2 (08:39→20:46)
[2018-06-24] MEDS: Levemir Flexpen SUBQ SCH ×2 (08:39→18:22)
[2018-06-24 08:49] LABS: ANION GAP 11 mmol/L (5-15); BLOOD UREA NITROGEN 22 mg/dL (7-18); CALCIUM 7.8 MG/DL (8.5-10.1); CARBON DIOXIDE 22 MMOL/L (21-32); CHLORIDE 106 MMOL/L (98-107); CREATININE 0.5 MG/DL (0.55-1.30); SODIUM 139 MMOL/L (136-145)
[2018-06-24 08:54] LABS: ALANINE AMINOTRANSFERASE 38 U/L (12-78); ALBUMIN 2.6 G/DL (3.4-5.0); ALKALINE PHOSPHATASE 60 U/L (46-116); ASPARTATE AMINO TRANSFERASE 21 U/L (15-37); BILIRUBIN,DIRECT < 0.1 MG/DL (0.0-0.3); BILIRUBIN,TOTAL 0.1 MG/DL (0.2-1.0); PHOSPHORUS 3.3 MG/DL (2.5-4.9)
--- NOTE | 2018-06-24 09:17 | General Progress Note ---
Assessment/Plan Problem List: (1) Uncontrolled diabetes mellitus ICD Codes: E11.65 - Type 2 diabetes mellitus with hyperglycemia SNOMED: 79445490, 532916847 (2) Paraplegia ICD Codes: G82.20 - Paraplegia, unspecified SNOMED: 82342740 (3) Spina bifida ICD Codes: Q05.9 - Spina bifida, unspecified SNOMED: 70196326 Assessment: continue Levemir 25 units bid continue Novolog 15 units tid continue NISS ac / hs Subjective Allergies: Coded Allergies: CIPROFLOXACIN (Verified Allergy, Unknown, 06/14/18) HALOPERIDOL (Verified Allergy, Unknown, 06/14/18) RISPERIDONE (Verified Allergy, Unknown, 06/14/18) SENNA (Verified Allergy, Unknown, 06/14/18) All Systems: reviewed and negative except above Subjective glucose values improving Item Value Date Time Bedside Blood Glucose 227 mg/dl H 06/24/18 0839 Bedside Blood Glucose 255 mg/dl H 06/24/18 0601 Bedside Blood Glucose 225 mg/dl H 06/23/18 2146 Bedside Blood Glucose 167 mg/dl H 06/23/18 1722 Bedside Blood Glucose 336 mg/dl H 06/23/18 1140 Objective Last 24 Hour Vital Signs Date Time Temp Pulse Resp B/P (MAP) Pulse Ox O2 Delivery O2 Flow Rate FiO2 06/24/18 03:37 84 06/23/18 23:55 87 06/23/18 21:00 Room Air 06/23/18 20:00 98.4 87 18 153/76 (101) 96 06/23/18 19:07 89 06/23/18 16:00 98.6 93 20 112/70 (84) 100 06/23/18 16:00 88 06/23/18 12:00 84 06/23/18 12:00 98.2 91 21 127/64 (85) 94 Intake and Output 06/23/18 06/24/18 18:59 06:59 Intake Total 2000 ml 240 ml Output Total 2000 ml 2000 ml Balance 0 ml -1760 ml Intake Oral 1100 ml IV Total 900 ml 240 ml Output Urine Total 2000 ml 2000 ml # Bowel Movements 2 Laboratory Tests 06/24/18 06:43: White Blood Count 6.5, Red Blood Count 4.05L, Hemoglobin 11.5L, Hematocrit 35.0L , Mean Corpuscular Volume 86, Mean Corpuscular Hemoglobin 28.4, Mean Corpuscular Hemoglobin Concent 32.9, Red Cell Distribution Width 15.2H, Platelet Count 198, Mean Platelet Volume 6.0L, Neutrophils (%) (Auto) 68.9, Lymphocytes (%) (Auto) 23.9, Monocytes (%) (Auto) 4.8, Eosinophils (%) (Auto) 1.6, Basophils (%) (Auto) 0.7, Sodium Level 139#, Potassium Level 4.0, Chloride Level 106, Carbon Dioxide Level 22, Anion Gap 11, Blood Urea Nitrogen 22H, Creatinine 0.5L, Estimat Glomerular Filtration Rate > 60, Glucose Level 246#H, Uric Acid 6.2, Calcium Level 7.8L, Phosphorus Level 3.3, Magnesium Level 1.7L, Total Bilirubin 0.1L, Direct Bilirubin < 0.1, Aspartate Amino Transf (AST/SGOT) 21, Alanine Aminotransferase (ALT/SGPT) 38, Alkaline Phosphatase 60, Total Protein 6.5, Albumin 2.6L Height (Feet): 5 Height (Inches): 4.00 Weight (Pounds): 207 General Appearance: no apparent distress Neck: normal alignment Cardiovascular: normal rate Respiratory/Chest: lungs clear Abdomen: normal bowel sounds Objective Current Medications Medications (Trade) Dose Ordered Sig/Trevni Route PRN Reason Start Time Stop Time Status Last Admin Dose Admin Dextrose (Dextrose 50%) 25 ml Q30M PRN IV Hypoglycemia 06/22/18 16:45 07/21/18 06:44 Dextrose (Dextrose 50%) 50 ml Q30M PRN IV Hypoglycemia 06/22/18 16:45 07/21/18 06:44 Docusate Sodium (Colace) 100 mg TID ORAL 06/22/18 18:00 07/21/18 08:59 06/24/18 08:27 Fenofibrate (Tricor) 145 mg DAILY ORAL 06/23/18 09:00 07/22/18 14:29 06/24/18 09:07 Gabapentin (Neurontin) 100 mg BID ORAL 06/22/18 18:00 07/21/18 08:59 06/24/18 08:27 Heparin Sodium (Porcine) (Heparin 5000 units/ml) 5,000 units EVERY 12 HOURS SUBQ 06/22/18 21:00 07/21/18 08:59 06/24/18 08:39 Hydromorphone HCl (Dilaudid) 4 mg Q4H PRN ORAL pain 7-10 06/22/18 17:00 06/28/18 16:59 Insulin Aspart (NovoLOG) BEFORE MEALS AND HS SUBQ 06/22/18 16:30 07/21/18 06:29 06/24/18 06:00 Insulin Aspart (NovoLOG) 15 units NOVOTIAC SUBQ 06/23/18 11:50 07/21/18 06:44 06/24/18 06:01 Insulin Detemir (Levemir) 25 units BID SUBQ 06/23/18 10:10 07/21/18 08:59 06/24/18 08:39 Lactulose (Cephulac) 30 gm THREE TIMES A DAY ORAL 06/22/18 18:00 07/21/18 08:59 06/24/18 08:27 Lorazepam (Ativan 2mg/ml 1ml) 1 mg Q4H PRN IV For Anxiety 06/23/18 18:30 06/30/18 18:29 06/24/18 03:17 Magnesium Hydroxide (Mom) 30 ml DAILYPRN PRN ORAL Constipation 06/23/18 17:00 07/23/18 16:59 Methadone HCl (Methadone HCl) 15 mg EVERY 8 HOURS ORAL 06/22/18 22:00 06/28/18 05:59 06/24/18 05:56 Morphine Sulfate (Morphine Sulfate) 4 mg Q4H PRN IVP For Pain 06/22/18 17:15 06/28/18 01:14 06/24/18 08:22 Oxybutynin Chloride (Ditropan) 10 mg BID ORAL 06/22/18 18:00 07/22/18 08:59 06/24/18 08:27 Pantoprazole (Protonix) 40 mg EVERY 12 HOURS ORAL 06/22/18 21:00 07/21/18 20:59 06/24/18 08:27 Sodium Chloride 500 ml @ 30 mls/hr ONCE ONCE IV 06/23/18 19:30 06/24/18 12:09 06/23/18 22:05 Sodium Phosphate (Fleet's Sodium Phosl Enema) 133 ml DAILYPRN PRN RECTAL constipation 06/23/18 09:00 07/23/18 08:59 06/23/18 17:03 Tizanidine HCl (Zanaflex) 2 mg Q12H PRN ORAL spasm 06/22/18 17:00 07/21/18 16:59 Trazodone HCl (Desyrel) 50 mg HSPRN PRN ORAL insomia 06/22/18 21:00 07/22/18 20:59 06/22/18 21:43 Vancomycin HCl (Vanco rx to dose) 1 ea DAILY PRN MISC Per rx protocol 06/23/18 08:45 07/23/18 08:44 Vancomycin HCl 1 gm/Dextrose 275 ml @ 183.708 mls/hr Q8H IVPB 06/23/18 19:00 06/28/18 18:59 Arden Rossi MD Jun 24, 2018 09:17
--- NOTE | 2018-06-24 09:46 | Pulmonology Progress Note ---
Assessment/Plan Assessment/Plan ASSESSMENT Lactic acidosis Diabetes mellitus out of control Bacteremia Hyponatremia Hypertriglyceridemia Multiply partial-thickness pressure injuries, present on admission Spina bifida Paraplegia Chronic suprapubic catheter Multiple sclerosis Nicotine dependency with withdrawal PLAN OF CARE IV fluid BCX 03/09 + GPC leukocytosis resolved . 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 : hold metformin due to lactic acidosis , continue Levemir, NovoLog pre-meal and SSI as needed [id number] clearly not at goal hyponatremia was likely due to hyperglycemia as per fire technician fire technician followed sodium trending up lipid panel with elevated triglycerides started on TriCor patient was educated on low-fat low-cholesterol diabetic diet and adherence with diet monitor renal parameters and electrolytes, correct electrolytes as needed wound care as per surgeon recommendation s/p catheter changed by urologist on 06/22 counseled on smoking cessation start Nicotine patch GI prophylaxis bowel regimen supportive care DNR/DNI status case discussed and evaluated by supervising physician Subjective Allergies: Coded Allergies: CIPROFLOXACIN (Verified Allergy, Unknown, 06/14/18) HALOPERIDOL (Verified Allergy, Unknown, 06/14/18) RISPERIDONE (Verified Allergy, Unknown, 06/14/18) SENNA (Verified Allergy, Unknown, 06/14/18) Subjective no fevers, leukocytosis resolved no signs of resp distress, declined abx s/p cath changed 06/22 patient requested Nicotine gum or patch, reports smoking up to 2 pack/ day Objective Last 24 Hour Vital Signs Date Time Temp Pulse Resp B/P (MAP) Pulse Ox O2 Delivery O2 Flow Rate FiO2 06/24/18 03:37 84 06/23/18 23:55 87 06/23/18 21:00 Room Air 06/23/18 20:00 98.4 87 18 153/76 (101) 96 06/23/18 19:07 89 06/23/18 16:00 98.6 93 20 112/70 (84) 100 06/23/18 16:00 88 06/23/18 12:00 84 06/23/18 12:00 98.2 91 21 127/64 (85) 94 Intake and Output 06/23/18 06/24/18 18:59 06:59 Intake Total 2000 ml 240 ml Output Total 2000 ml 2000 ml Balance 0 ml -1760 ml Intake Oral 1100 ml IV Total 900 ml 240 ml Output Urine Total 2000 ml 2000 ml # Bowel Movements 2 Objective General Appearance: no acute distress, awake, alert, oriented HEENT: normocephalic, atraumatic, anicteric, mucous membranes moist Respiratory/Chest: lungs clear, no accessory muscle use Cardiovascular: normal rate - SR on tele , regular rhythm Abdomen: soft, non tender , obese Extremities: other - s/p catheter with sean urine Neurologic/Psychiatric: abnormal gait - paraplegia , alert, responsive Musculoskeletal: atrophy - BLE, edema +1 bilateral foot Laboratory Tests 06/24/18 06:43: White Blood Count 6.5, Red Blood Count 4.05L, Hemoglobin 11.5L, Hematocrit 35.0L , Mean Corpuscular Volume 86, Mean Corpuscular Hemoglobin 28.4, Mean Corpuscular Hemoglobin Concent 32.9, Red Cell Distribution Width 15.2H, Platelet Count 198, Mean Platelet Volume 6.0L, Neutrophils (%) (Auto) 68.9, Lymphocytes (%) (Auto) 23.9, Monocytes (%) (Auto) 4.8, Eosinophils (%) (Auto) 1.6, Basophils (%) (Auto) 0.7, Sodium Level 139#, Potassium Level 4.0, Chloride Level 106, Carbon Dioxide Level 22, Anion Gap 11, Blood Urea Nitrogen 22H, Creatinine 0.5L, Estimat Glomerular Filtration Rate > 60, Glucose Level 246#H, Uric Acid 6.2, Calcium Level 7.8L, Phosphorus Level 3.3, Magnesium Level 1.7L, Total Bilirubin 0.1L, Direct Bilirubin < 0.1, Aspartate Amino Transf (AST/SGOT) 21, Alanine Aminotransferase (ALT/SGPT) 38, Alkaline Phosphatase 60, Total Protein 6.5, Albumin 2.6L Current Medications Medications (Trade) Dose Ordered Sig/Trevin Route PRN Reason Start Time Stop Time Status Last Admin Dose Admin Dextrose (Dextrose 50%) 25 ml Q30M PRN IV Hypoglycemia 06/22/18 16:45 07/21/18 06:44 Dextrose (Dextrose 50%) 50 ml Q30M PRN IV Hypoglycemia 06/22/18 16:45 07/21/18 06:44 Docusate Sodium (Colace) 100 mg TID ORAL 06/22/18 18:00 5/18/19 08:59 06/24/18 08:27 Fenofibrate (Tricor) 145 mg DAILY ORAL 06/23/18 09:00 07/22/18 14:29 06/24/18 09:07 Gabapentin (Neurontin) 100 mg BID ORAL 06/22/18 18:00 07/21/18 08:59 06/24/18 08:27 Heparin Sodium (Porcine) (Heparin 5000 units/ml) 5,000 units EVERY 12 HOURS SUBQ 06/22/18 21:00 07/21/18 08:59 06/24/18 08:39 Hydromorphone HCl (Dilaudid) 4 mg Q4H PRN ORAL pain 7-10 06/22/18 17:00 06/28/18 16:59 Insulin Aspart (NovoLOG) BEFORE MEALS AND HS SUBQ 06/22/18 16:30 07/21/18 06:29 06/24/18 06:00 Insulin Aspart (NovoLOG) 15 units NOVOTIAC SUBQ 06/23/18 11:50 07/21/18 06:44 06/24/18 06:01 Insulin Detemir (Levemir) 25 units BID SUBQ 06/23/18 10:10 07/21/18 08:59 06/24/18 08:39 Lactulose (Cephulac) 30 gm THREE TIMES A DAY ORAL 06/22/18 18:00 07/21/18 08:59 06/24/18 08:27 Lorazepam (Ativan 2mg/ml 1ml) 1 mg Q4H PRN IV For Anxiety 06/23/18 18:30 06/30/18 18:29 06/24/18 09:32 Magnesium Hydroxide (Mom) 30 ml DAILYPRN PRN ORAL Constipation 06/23/18 17:00 07/23/18 16:59 Methadone HCl (Methadone HCl) 15 mg EVERY 8 HOURS ORAL 06/22/18 22:00 06/28/18 05:59 06/24/18 05:56 Morphine Sulfate (Morphine Sulfate) 4 mg Q4H PRN IVP For Pain 06/22/18 17:15 06/28/18 01:14 06/24/18 08:22 Oxybutynin Chloride (Ditropan) 10 mg BID ORAL 06/22/18 18:00 07/22/18 08:59 06/24/18 08:27 Pantoprazole (Protonix) 40 mg EVERY 12 HOURS ORAL 06/22/18 21:00 07/21/18 20:59 06/24/18 08:27 Sodium Chloride 500 ml @ 30 mls/hr ONCE ONCE IV 06/23/18 19:30 06/24/18 12:09 06/23/18 22:05 Sodium Phosphate (Fleet's Sodium Phosl Enema) 133 ml DAILYPRN PRN RECTAL constipation 06/23/18 09:00 07/23/18 08:59 06/23/18 17:03 Tizanidine HCl (Zanaflex) 2 mg Q12H PRN ORAL spasm 06/22/18 17:00 07/21/18 16:59 Trazodone HCl (Desyrel) 50 mg HSPRN PRN ORAL insomia 06/22/18 21:00 07/22/18 20:59 06/22/18 21:43 Vancomycin HCl (Vanco rx to dose) 1 ea DAILY PRN MISC Per rx protocol 06/23/18 08:45 07/23/18 08:44 Vancomycin HCl 1 gm/Dextrose 275 ml @ 183.708 mls/hr Q8H IVPB 06/23/18 19:00 06/28/18 18:59 Claudia Linda SCHEDULING REPRESENTATIVE Jun 24, 2018 09:46
--- NOTE | 2018-06-24 10:42 | Nephrology Progress Note ---
Assessment/Plan Problem List: (1) Hyponatremia (2) Diabetes mellitus Assessment: OOC (3) Sepsis (4) Paraplegia Assessment HypoNatremia due to High Glucose / hyperglycemia Uncontrolled Dm UTI ? Sepsis ? suprepubic cath, High lactic level Spina bifida / Paraplegia Limited mobility MS Plan BS control Urine culture 3% saline as needed tricor for high Trigs Monitor lytes per orders urine cultures Subjective ROS Limited/Unobtainable: No Objective Objective Last 24 Hour Vital Signs Date Time Temp Pulse Resp B/P (MAP) Pulse Ox O2 Delivery O2 Flow Rate FiO2 06/24/18 09:00 Room Air 06/24/18 08:00 97.6 89 18 139/79 (99) 100 06/24/18 08:00 83 06/24/18 03:37 84 06/23/18 23:55 87 06/23/18 21:00 Room Air 06/23/18 20:00 98.4 87 18 153/76 (101) 96 06/23/18 19:07 89 06/23/18 16:00 98.6 93 20 112/70 (84) 100 06/23/18 16:00 88 06/23/18 12:00 84 06/23/18 12:00 98.2 91 21 127/64 (85) 94 Intake and Output 06/23/18 06/24/18 18:59 06:59 Intake Total 2000 ml 240 ml Output Total 2000 ml 2000 ml Balance 0 ml -1760 ml Intake Oral 1100 ml IV Total 900 ml 240 ml Output Urine Total 2000 ml 2000 ml # Bowel Movements 2 Laboratory Tests 06/24/18 06:43: White Blood Count 6.5, Red Blood Count 4.05L, Hemoglobin 11.5L, Hematocrit 35.0L , Mean Corpuscular Volume 86, Mean Corpuscular Hemoglobin 28.4, Mean Corpuscular Hemoglobin Concent 32.9, Red Cell Distribution Width 15.2H, Platelet Count 198, Mean Platelet Volume 6.0L, Neutrophils (%) (Auto) 68.9, Lymphocytes (%) (Auto) 23.9, Monocytes (%) (Auto) 4.8, Eosinophils (%) (Auto) 1.6, Basophils (%) (Auto) 0.7, Sodium Level 139#, Potassium Level 4.0, Chloride Level 106, Carbon Dioxide Level 22, Anion Gap 11, Blood Urea Nitrogen 22H, Creatinine 0.5L, Estimat Glomerular Filtration Rate > 60, Glucose Level 246#H, Uric Acid 6.2, Calcium Level 7.8L, Phosphorus Level 3.3, Magnesium Level 1.7L, Total Bilirubin 0.1L, Direct Bilirubin < 0.1, Aspartate Amino Transf (AST/SGOT) 21, Alanine Aminotransferase (ALT/SGPT) 38, Alkaline Phosphatase 60, Total Protein 6.5, Albumin 2.6L Height (Feet): 5 Height (Inches): 4.00 Weight (Pounds): 207 General Appearance: no apparent distress Objective no change Elvin Robles MD Jun 24, 2018 10:42
[2018-06-24 12:00] VITALS: BP 136/82
--- NOTE | 2018-06-24 15:05 | Surgery Progress Note ---
Surgery Progress Note Subjective Additional Comments no acute events. labs improved. exam unchanged. Objective Last 24 Hour Vital Signs Date Time Temp Pulse Resp B/P (MAP) Pulse Ox O2 Delivery O2 Flow Rate FiO2 06/24/18 12:00 98.9 82 19 136/82 (100) 97 06/24/18 09:00 Room Air 06/24/18 08:00 97.6 89 18 139/79 (99) 100 06/24/18 08:00 83 06/24/18 03:37 84 06/23/18 23:55 87 06/23/18 21:00 Room Air 06/23/18 20:00 98.4 87 18 153/76 (101) 96 06/23/18 19:07 89 06/23/18 16:00 98.6 93 20 112/70 (84) 100 06/23/18 16:00 88 I&O Intake and Output 06/23/18 06/24/18 19:00 07:00 Intake Total 1925 ml 240 ml Output Total 2000 ml 2000 ml Balance -75 ml -1760 ml Intake Oral 1100 ml IV Total 825 ml 240 ml Output Urine Total 2000 ml 2000 ml # Bowel Movements 2 Cardiovascular: RSR Respiratory: clear Abdomen: soft, distended, present bowel sounds Extremities: no tenderness, no cyanosis Laboratory Tests Test 06/24/18 06:43 White Blood Count 6.5 K/UL (4.8-10.8) Red Blood Count 4.05 M/UL (4.70-6.10) L Hemoglobin 11.5 G/DL (14.2-18.0) L Hematocrit 35.0 % (42.0-52.0) L Mean Corpuscular Volume 86 FL (80-99) Mean Corpuscular Hemoglobin 28.4 PG (27.0-31.0) Mean Corpuscular Hemoglobin Concent 32.9 G/DL (32.0-36.0) Red Cell Distribution Width 15.2 % (11.6-14.8) H Platelet Count 198 K/UL (150-450) Mean Platelet Volume 6.0 FL (6.5-10.1) L Neutrophils (%) (Auto) 68.9 % (45.0-75.0) Lymphocytes (%) (Auto) 23.9 % (20.0-45.0) Monocytes (%) (Auto) 4.8 % (1.0-10.0) Eosinophils (%) (Auto) 1.6 % (0.0-3.0) Basophils (%) (Auto) 0.7 % (0.0-2.0) Sodium Level 139 MMOL/L (136-145) # Potassium Level 4.0 MMOL/L (3.5-5.1) Chloride Level 106 MMOL/L (98-107) Carbon Dioxide Level 22 MMOL/L (21-32) Anion Gap 11 mmol/L (5-15) Blood Urea Nitrogen 22 mg/dL (7-18) H Creatinine 0.5 MG/DL (0.55-1.30) L Estimat Glomerular Filtration Rate > 60 mL/min (>60) Glucose Level 246 MG/DL (74-106) #H Uric Acid 6.2 MG/DL (2.6-7.2) Calcium Level 7.8 MG/DL (8.5-10.1) L Phosphorus Level 3.3 MG/DL (2.5-4.9) Magnesium Level 1.7 MG/DL (1.8-2.4) L Total Bilirubin 0.1 MG/DL (0.2-1.0) L Direct Bilirubin < 0.1 MG/DL (0.0-0.3) Aspartate Amino Transf (AST/SGOT) 21 U/L (15-37) Alanine Aminotransferase (ALT/SGPT) 38 U/L (12-78) Alkaline Phosphatase 60 U/L (46-116) Total Protein 6.5 G/DL (6.4-8.2) Albumin 2.6 G/DL (3.4-5.0) L Plan Problems: (1) Abnormal urogenital findings (2) Paraplegia (3) Spina bifida (4) Diabetes mellitus Assessment & Plan: DAILY ESTIMATED NEEDS: Needs based on Quadriplegia, wound 65.5kg adj 23-28 kcals/kg 1646-8119 total kcals 1.25-1.5 g protein/kg 82-98 g total protein 25-30 mL/kg 6701-5088 total fluid mLs NUTRITION DIAGNOSIS: 1) Increased protein needs r/t wound healing and h/o quadriplegia as evidenced by pt w/ h/o stage 3 ischial wound and resolving sacral wound. 2) Altered nutrition related lab values r/t diabetes as evidenced by elev BG (633, 395) and elev POC, Uglu 4+ on adm. CURRENT DIET:[facility] MED PO DIET RECOMMENDATIONS: DIET CHANGE-> -> CCHO LOW W/ DOUBLE PROTEIN PORTIONS ADDITIONAL RECOMMENDATIONS: 1) Wound care: add JIM BID + VIT C 250mg BID + MVI x1 daily 2) Check A1C 3) RE-calibrate bed scale for accurate CWB 4) F/up w/ WC eval (5) Limited mobility in bed (6) Sepsis (7) Uncontrolled diabetes mellitus (8) Abdominal distension Assessment & Plan: stable as compared to prior exam still constipated needs bowel regimen KUB noted will follow with serial exam and recs thank you (9) Decubitus skin ulcer Assessment & Plan: Pt presented on admission with multiple partial thickness pressure injuries secondary to shearing R,L Buttocks ,Scrotum and both ischial regions. Moisture related intertrigo noted to L groin and abd panus.All affected areas cleansed with Soap and water .Triad Paste applied to affected areas including pressure areas on buttocks and both ischail areas. Tx.plan: Apply Triad paste to abd fols, Both groin,Scrotum and Buttocks with each perineal care. Reposition At least every 2hours or as tolerated. Off-Load heels with Pillow. (10) Intractable back pain Endy De La Rosa Jun 24, 2018 15:05
[2018-06-24] MEDS ORDERED: Tubing IV Secondary IV ONE (15:13)
[2018-06-24 20:00] VITALS: BP 112/75
--- NOTE | 2018-06-24 20:00 | Consultation ---
DATE OF CONSULTATION: 06/24/2018 INFECTIOUS DISEASES CONSULTATION PRIMARY ATTENDING: Srini Cox D.O., now is covered by Dr. Estevez. REASON FOR CONSULTATION: Positive blood culture. HISTORY OF PRESENT ILLNESS: A 42-year-old white male admitted on 06/20/2018 because of pain in bladder area, nausea, and uncontrolled diabetes at the time of admission. The patient was recently discharged from a nursing facility on 06/20/2018. On previous admission, he was diagnosed with UTI, but was noncompliant with medication and still is not willing to do medications. Blood culture at the time of admission showed gram-positive cocci in one set. PAST MEDICAL HISTORY: Paranoid schizophrenia, diabetes mellitus, spina bifida, has paraplegia, COPD, suprapubic catheter, bladder spasm. MEDICATIONS: Getting nicotine patch, vancomycin, mostly refusing it, lorazepam, magnesium hydroxide, insulin, fenofibrate, sodium phosphate, methadone, heparin, Protonix, trazodone, Colace, gabapentin, lactulose, oxybutynin, morphine sulfate, hydromorphone, and tizanidine. ALLERGIES: Allergic to Cipro, haloperidol, Risperdal, senna. SOCIAL HISTORY: Single, senior care resident, smokes one or two packs cigarettes a day. No alcohol abuse. He has history of taking methadone. REVIEW OF SYSTEMS: No fever. No chills. No coughing. Pain controlled today. The patient is paraplegic and bedbound. PHYSICAL EXAMINATION: VITAL SIGNS: Temperature 98.9 degrees, pulse 82, and blood pressure 136/82. GENERAL APPEARANCE: No acute distress, seems to be obese. HEAD AND NECK: [place] conjunctiva. HEART: Normal rate. LUNGS: Clear. ABDOMEN: Soft, obese. Suprapubic catheter. According to nurse, there is some discharge around the catheter. EXTREMITIES: He has no edema. He has finger clubbing. LABORATORY AND DIAGNOSTIC DATA: WBC at the time of admission was 14.3, now is 6.5, hemoglobin 11.5, hematocrit 35, platelet is 198,000. Sodium 139, potassium 4, chloride 106, bicarb 22, BUN 22, creatinine 0.5, and glucose 246. At the time of admission, the glucose was 633. UA showed rbc of 10 to 15, wbc of 5 to 10, and nitrite positive. MRSA screen, not available. Blood culture x1 showed gram-positive cocci. IMPRESSION: 1. Positive blood culture. 2. Recent urinary tract infection with Proteus extended-spectrum beta-lactamases and Escherichia coli extended-spectrum beta-lactamases, seems to be not adequately treated. The patient has schizophrenia, noncompliance with medication, has diabetes mellitus, chronic pain, probably history of spina bifida, chronic obstructive pulmonary disease, and suprapubic catheter. RECOMMENDATION: We will follow up the culture. At the end of my exam, I thank Dr. Estevez, for involving me in the care of this patient. Daniel Murcia M.D. DR: Aba JOB#: [id number] CC: CHANTEL
[2018-06-24] MEDS: HYDROmorphone 4mg tab ORAL PRN (21:16)
--- NOTE | 2018-06-24 21:29 | Psych Consult Progress Note ---
Psychiatry Progress Note Psychiatry Progress Note Medications Current Medications Medications (Trade) Dose Ordered Sig/Trevin Route PRN Reason Start Time Stop Time Status Last Admin Dose Admin Dextrose (Dextrose 50%) 25 ml Q30M PRN IV Hypoglycemia 06/22/18 16:45 07/21/18 06:44 Dextrose (Dextrose 50%) 50 ml Q30M PRN IV Hypoglycemia 06/22/18 16:45 07/21/18 06:44 Docusate Sodium (Colace) 100 mg TID ORAL 06/22/18 18:00 07/21/18 08:59 06/24/18 12:36 Fenofibrate (Tricor) 145 mg DAILY ORAL 06/23/18 09:00 07/22/18 14:29 06/24/18 09:07 Gabapentin (Neurontin) 100 mg BID ORAL 06/22/18 18:00 07/21/18 08:59 06/24/18 18:19 Heparin Sodium (Porcine) (Heparin 5000 units/ml) 5,000 units EVERY 12 HOURS SUBQ 06/22/18 21:00 07/21/18 08:59 06/24/18 20:46 Hydromorphone HCl (Dilaudid) 4 mg Q4H PRN ORAL pain 7-10 06/22/18 17:00 06/28/18 16:59 06/24/18 21:16 Insulin Aspart (NovoLOG) BEFORE MEALS AND HS SUBQ 06/22/18 16:30 07/21/18 06:29 06/24/18 20:46 Insulin Aspart (NovoLOG) 15 units NOVOTIAC SUBQ 06/23/18 11:50 07/21/18 06:44 06/24/18 18:20 Insulin Detemir (Levemir) 25 units BID SUBQ 06/23/18 10:10 07/21/18 08:59 06/24/18 18:22 Lactulose (Cephulac) 30 gm THREE TIMES A DAY ORAL 06/22/18 18:00 07/21/18 08:59 06/24/18 08:27 Lorazepam (Ativan 2mg/ml 1ml) 1 mg Q4H PRN IV For Anxiety 06/23/18 18:30 06/30/18 18:29 06/24/18 19:04 Magnesium Hydroxide (Mom) 30 ml DAILYPRN PRN ORAL Constipation 06/23/18 17:00 07/23/18 16:59 Methadone HCl (Methadone HCl) 15 mg EVERY 8 HOURS ORAL 06/22/18 22:00 06/28/18 05:59 06/24/18 13:51 Morphine Sulfate (Morphine Sulfate) 4 mg Q4H PRN IVP For Pain 06/22/18 17:15 06/28/18 01:14 06/24/18 20:47 Nicotine (Nicoderm) 1 patch Q24H TDERMAL 06/24/18 10:00 07/24/18 09:59 06/24/18 10:58 Oxybutynin Chloride (Ditropan) 10 mg BID ORAL 06/22/18 18:00 07/22/18 08:59 06/24/18 18:19 Pantoprazole (Protonix) 40 mg EVERY 12 HOURS ORAL 06/22/18 21:00 07/21/18 20:59 06/24/18 20:44 Sodium Phosphate (Fleet's Sodium Phosl Enema) 133 ml DAILYPRN PRN RECTAL constipation 06/23/18 09:00 07/23/18 08:59 06/23/18 17:03 Tizanidine HCl (Zanaflex) 2 mg Q12H PRN ORAL spasm 06/22/18 17:00 07/21/18 16:59 Trazodone HCl (Desyrel) 50 mg HSPRN PRN ORAL insomia 06/22/18 21:00 07/22/18 20:59 06/22/18 21:43 Vancomycin HCl (Vanco rx to dose) 1 ea DAILY PRN MISC Per rx protocol 06/23/18 08:45 07/23/18 08:44 Vancomycin HCl 1 gm/Dextrose 275 ml @ 183.708 mls/hr Q8H IVPB 06/23/18 19:00 06/28/18 18:59 Allergies: Coded Allergies: CIPROFLOXACIN (Verified Allergy, Unknown, 06/14/18) HALOPERIDOL (Verified Allergy, Unknown, 06/14/18) RISPERIDONE (Verified Allergy, Unknown, 06/14/18) SENNA (Verified Allergy, Unknown, 06/14/18) Objective Data Height (Feet): 5 Height (Inches): 4.00 Weight (Pounds): 207 General Appearance: WD/WN, alert, moderate distress, agitated, combative Appearance: disheveled Mental Status Exam - Mood: angry, agitated Mental Status Exam - Thought P: illogical Mental Status Exam - Suicidal: not present Assessment/Plan Problem List: (1) MDD (major depressive disorder), recurrent episode, moderate ICD Codes: F33.1 - Major depressive disorder, recurrent, moderate SNOMED: 07912855, 165028290 Plan: abilify 10mg po qhs depakote 500mg po qhs trazadone Grisel Allan MD Jun 24, 2018 21:29
[2018-06-25] VITALS: BP 130/85
[2018-06-25] MEDS: Vancomycin 1gm/D5W 275ml IVPB SCH ×2 (03:00)
[2018-06-25] MEDS: HYDROmorphone 4mg tab ORAL PRN (03:14)
[2018-06-25 04:00] VITALS: BP 118/84
[2018-06-25] MEDS: LORazepam Inj 2mg/ml 1ml IV PRN ×4 (06:02→16:35)
[2018-06-25] MEDS: NovoLOG Insulin Flexpen SUBQ SCH ×7 (06:05→21:02)
--- NOTE | 2018-06-25 06:31 | General Progress Note ---
Assessment/Plan Problem List: (1) Uncontrolled diabetes mellitus ICD Codes: E11.65 - Type 2 diabetes mellitus with hyperglycemia SNOMED: 46916246, 310027016 (2) Paraplegia ICD Codes: G82.20 - Paraplegia, unspecified SNOMED: 63065286 (3) Spina bifida ICD Codes: Q05.9 - Spina bifida, unspecified SNOMED: 35860883 Assessment: increase Levemir to 28 units bid increase Novolog to 18 units tid continue NISS ac / hs Subjective Allergies: Coded Allergies: CIPROFLOXACIN (Verified Allergy, Unknown, 06/14/18) HALOPERIDOL (Verified Allergy, Unknown, 06/14/18) RISPERIDONE (Verified Allergy, Unknown, 06/14/18) SENNA (Verified Allergy, Unknown, 06/14/18) All Systems: reviewed and negative except above Subjective events noted Item Value Date Time Bedside Blood Glucose 270 mg/dl H 06/25/18 0606 Bedside Blood Glucose 433 mg/dl H 06/24/18 2100 Bedside Blood Glucose 340 mg/dl H 06/24/18 1822 Bedside Blood Glucose 288 mg/dl H 06/24/18 1243 Bedside Blood Glucose 227 mg/dl H 06/24/18 0839 Bedside Blood Glucose 255 mg/dl H 06/24/18 0601 Objective Last 24 Hour Vital Signs Date Time Temp Pulse Resp B/P (MAP) Pulse Ox O2 Delivery O2 Flow Rate FiO2 06/25/18 04:00 84 06/25/18 04:00 99.1 93 16 118/84 (95) 97 06/25/18 00:00 98.9 93 20 130/85 (100) 98 06/25/18 00:00 95 06/24/18 21:00 Room Air 06/24/18 20:00 94 06/24/18 20:00 98.9 94 22 112/75 (87) 98 06/24/18 16:00 100 06/24/18 12:00 81 06/24/18 12:00 98.9 82 19 136/82 (100) 97 06/24/18 09:00 Room Air 06/24/18 08:00 97.6 89 18 139/79 (99) 100 06/24/18 08:00 83 Intake and Output 06/24/18 06/25/18 18:59 06:59 Intake Total 890 ml Output Total 1500 ml Balance -610 ml IV Total 90 ml Other 800 ml Output Urine Total 1500 ml # Bowel Movements 1 1 Laboratory Tests 06/24/18 06:43: White Blood Count 6.5, Red Blood Count 4.05L, Hemoglobin 11.5L, Hematocrit 35.0L , Mean Corpuscular Volume 86, Mean Corpuscular Hemoglobin 28.4, Mean Corpuscular Hemoglobin Concent 32.9, Red Cell Distribution Width 15.2H, Platelet Count 198, Mean Platelet Volume 6.0L, Neutrophils (%) (Auto) 68.9, Lymphocytes (%) (Auto) 23.9, Monocytes (%) (Auto) 4.8, Eosinophils (%) (Auto) 1.6, Basophils (%) (Auto) 0.7, Sodium Level 139#, Potassium Level 4.0, Chloride Level 106, Carbon Dioxide Level 22, Anion Gap 11, Blood Urea Nitrogen 22H, Creatinine 0.5L, Estimat Glomerular Filtration Rate > 60, Glucose Level 246#H, Uric Acid 6.2, Calcium Level 7.8L, Phosphorus Level 3.3, Magnesium Level 1.7L, Total Bilirubin 0.1L, Direct Bilirubin < 0.1, Aspartate Amino Transf (AST/SGOT) 21, Alanine Aminotransferase (ALT/SGPT) 38, Alkaline Phosphatase 60, Total Protein 6.5, Albumin 2.6L Height (Feet): 5 Height (Inches): 4.00 Weight (Pounds): 207 General Appearance: no apparent distress Neck: normal alignment Cardiovascular: normal rate Respiratory/Chest: lungs clear Abdomen: normal bowel sounds Objective Current Medications Medications (Trade) Dose Ordered Sig/Trevin Route PRN Reason Start Time Stop Time Status Last Admin Dose Admin Dextrose (Dextrose 50%) 25 ml Q30M PRN IV Hypoglycemia 06/22/18 16:45 07/21/18 06:44 Dextrose (Dextrose 50%) 50 ml Q30M PRN IV Hypoglycemia 06/22/18 16:45 07/21/18 06:44 Docusate Sodium (Colace) 100 mg TID ORAL 06/22/18 18:00 07/21/18 08:59 06/24/18 12:36 Fenofibrate (Tricor) 145 mg DAILY ORAL 06/23/18 09:00 07/22/18 14:29 06/24/18 09:07 Gabapentin (Neurontin) 100 mg BID ORAL 06/22/18 18:00 07/21/18 08:59 06/24/18 18:19 Heparin Sodium (Porcine) (Heparin 5000 units/ml) 5,000 units EVERY 12 HOURS SUBQ 06/22/18 21:00 07/21/18 08:59 06/24/18 20:46 Hydromorphone HCl (Dilaudid) 4 mg Q4H PRN ORAL pain 7-10 06/22/18 17:00 06/28/18 16:59 06/25/18 03:14 Insulin Aspart (NovoLOG) BEFORE MEALS AND HS SUBQ 06/22/18 16:30 07/21/18 06:29 06/25/18 06:05 Insulin Aspart (NovoLOG) 15 units NOVOTIAC SUBQ 06/23/18 11:50 07/21/18 06:44 06/25/18 06:06 Insulin Detemir (Levemir) 25 units BID SUBQ 06/23/18 10:10 07/21/18 08:59 06/24/18 18:22 Lactulose (Cephulac) 30 gm THREE TIMES A DAY ORAL 06/22/18 18:00 07/21/18 08:59 06/24/18 08:27 Lorazepam (Ativan 2mg/ml 1ml) 1 mg Q4H PRN IV For Anxiety 06/23/18 18:30 06/30/18 18:29 06/25/18 06:02 Magnesium Hydroxide (Mom) 30 ml DAILYPRN PRN ORAL Constipation 06/23/18 17:00 07/23/18 16:59 Methadone HCl (Methadone HCl) 15 mg EVERY 8 HOURS ORAL 06/22/18 22:00 06/28/18 05:59 06/25/18 06:02 Morphine Sulfate (Morphine Sulfate) 4 mg Q4H PRN IVP For Pain 06/22/18 17:15 06/28/18 01:14 06/24/18 20:47 Nicotine (Nicoderm) 1 patch Q24H TDERMAL 06/24/18 10:00 07/24/18 09:59 06/24/18 10:58 Oxybutynin Chloride (Ditropan) 10 mg BID ORAL 06/22/18 18:00 07/22/18 08:59 4/21/19 18:19 Pantoprazole (Protonix) 40 mg EVERY 12 HOURS ORAL 06/22/18 21:00 07/21/18 20:59 06/24/18 20:44 Sodium Phosphate (Fleet's Sodium Phosl Enema) 133 ml DAILYPRN PRN RECTAL constipation 06/23/18 09:00 07/23/18 08:59 06/23/18 17:03 Tizanidine HCl (Zanaflex) 2 mg Q12H PRN ORAL spasm 06/22/18 17:00 07/21/18 16:59 Trazodone HCl (Desyrel) 50 mg HSPRN PRN ORAL insomia 06/22/18 21:00 07/22/18 20:59 06/22/18 21:43 Vancomycin HCl (Vanco rx to dose) 1 ea DAILY PRN MISC Per rx protocol 06/23/18 08:45 07/23/18 08:44 Vancomycin HCl 1 gm/Dextrose 275 ml @ 183.708 mls/hr Q8H IVPB 06/23/18 19:00 06/28/18 18:59 Arden Rossi MD Jun 25, 2018 06:31
[2018-06-25 08:00] VITALS: BP 119/76
[2018-06-25] MEDS: Docusate 100mg cap ORAL SCH ×3 (08:04→17:30)
[2018-06-25] MEDS: Oxybutynin 5mg tab ORAL SCH ×2 (08:04→17:31)
[2018-06-25] MEDS: Morphine Sulfate 4mg/ml Inj (IV USE ONLY) IVP PRN ×4 (08:05→22:46)
[2018-06-25] MEDS: Heparin 5000 units/ml inj SUBQ SCH ×2 (08:12→20:59)
[2018-06-25] MEDS: Lactulose 20gm/30ml UDC ORAL SCH ×3 (08:13→17:34)
[2018-06-25] MEDS: Levemir Flexpen SUBQ SCH ×2 (08:42→17:35)
--- NOTE | 2018-06-25 10:25 | Diagnostic Imaging Report ---
Indication: Chest pain Technique: One view of the chest Comparison: 06/20/2018 Findings: Pleural thickening or fluid, atelectasis or scarring again demonstrated at the left lung base, appears unchanged. The remainder of the lungs and pleural spaces are clear. Spinal fusion rods again demonstrated. The heart size is upper limits normal Impression: Left basilar pleural fluid, atelectasis, versus scarring, unchanged from 06/20/2018. No acute process otherwise
[2018-06-25 10:39] LABS: ANION GAP 10 mmol/L (5-15); BLOOD UREA NITROGEN 17 mg/dL (7-18); CALCIUM 8.4 MG/DL (8.5-10.1); CARBON DIOXIDE 22 MMOL/L (21-32); CHLORIDE 99 MMOL/L (98-107); CREATININE 0.4 MG/DL (0.55-1.30); POTASSIUM 5.3 MMOL/L (3.5-5.1); SODIUM 131 MMOL/L (136-145)
[2018-06-25 10:40] LABS: BASOPHILS % (AUTO) 1.1 % (0.0-2.0); EOSINOPHILS % (AUTO) 2.3 % (0.0-3.0); HEMATOCRIT 35.1 % (42.0-52.0); HEMOGLOBIN 11.4 G/DL (14.2-18.0); LYMPHOCYTES % (AUTO) 25.4 % (20.0-45.0); MEAN CORPUSCULAR VOLUME 86 FL (80-99); MONOCYTES % (AUTO) 8.6 % (1.0-10.0); NEUTROPHILS % (AUTO) 62.6 % (45.0-75.0); PLATELET COUNT 203 K/UL (150-450); RED BLOOD COUNT 4.07 M/UL (4.70-6.10)
--- NOTE | 2018-06-25 11:06 | Pulmonology Progress Note ---
Assessment/Plan Problems: (1) Hyperkalemia (2) Hyponatremia (3) Sepsis (4) Uncontrolled diabetes mellitus (5) Spina bifida (6) Limited mobility in bed (7) Chronic suprapubic catheter (8) Paraplegia (9) Diabetes mellitus Assessment/Plan NS one liter flush check electrolytes iv fluids check cultures f/u ID recommendations pain management increase Methadone to 15 Q8 dvt prophylaxis. Subjective ROS Limited/Unobtainable: No Constitutional: Reports: no symptoms HEENT: Repors: no symptoms Respiratory: Reports: no symptoms Allergies: Coded Allergies: CIPROFLOXACIN (Verified Allergy, Unknown, 06/14/18) HALOPERIDOL (Verified Allergy, Unknown, 06/14/18) RISPERIDONE (Verified Allergy, Unknown, 06/14/18) SENNA (Verified Allergy, Unknown, 06/14/18) Objective Last 24 Hour Vital Signs Date Time Temp Pulse Resp B/P (MAP) Pulse Ox O2 Delivery O2 Flow Rate FiO2 06/25/18 09:00 Room Air 06/25/18 08:00 98.0 88 16 119/76 (90) 97 06/25/18 07:28 91 06/25/18 04:00 84 06/25/18 04:00 99.1 93 16 118/84 (95) 97 06/25/18 00:00 98.9 93 20 130/85 (100) 98 06/25/18 00:00 95 06/24/18 21:00 Room Air 06/24/18 20:00 94 06/24/18 20:00 98.9 94 22 112/75 (87) 98 06/24/18 16:00 100 06/24/18 12:00 81 06/24/18 12:00 98.9 82 19 136/82 (100) 97 Intake and Output 06/24/18 06/25/18 18:59 06:59 Intake Total 890 ml 240 ml Output Total 1500 ml 2400 ml Balance -610 ml -2160 ml Intake Oral 240 ml IV Total 90 ml Other 800 ml Output Urine Total 1500 ml 2400 ml # Bowel Movements 1 1 General Appearance: WD/WN, no acute distress HEENT: normocephalic Respiratory/Chest: chest wall non-tender, normal breath sounds Cardiovascular: normal peripheral pulses, normal rate Abdomen: normal bowel sounds, soft, non tender Neurologic/Psychiatric: shot polisher II-XII grossly normal Microbiology Date/Time Source Procedure Growth Status 06/24/18 08:15 Urine,Suprapubic Urine Culture - Preliminary Gram Negative Bacillus 1 Gram Negative Bacillus 2 Resulted Laboratory Tests 06/25/18 10:00: White Blood Count 7.0, Red Blood Count 4.07L, Hemoglobin 11.4L, Hematocrit 35.1L , Mean Corpuscular Volume 86, Mean Corpuscular Hemoglobin 27.9, Mean Corpuscular Hemoglobin Concent 32.4, Red Cell Distribution Width 15.0H, Platelet Count 203, Mean Platelet Volume 6.5, Neutrophils (%) (Auto) 62.6, Lymphocytes (%) (Auto) 25.4, Monocytes (%) (Auto) 8.6, Eosinophils (%) (Auto) 2.3, Basophils (%) (Auto) 1.1, Sodium Level 131L, Potassium Level 5.3H, Chloride Level 99, Carbon Dioxide Level 22, Anion Gap 10, Blood Urea Nitrogen 17 , Creatinine 0.4L, Estimat Glomerular Filtration Rate > 60, Glucose Level 298H, Calcium Level 8.4L Current Medications Medications (Trade) Dose Ordered Sig/Trevin Route PRN Reason Start Time Stop Time Status Last Admin Dose Admin Dextrose (Dextrose 50%) 25 ml Q30M PRN IV Hypoglycemia 06/22/18 16:45 07/21/18 06:44 Dextrose (Dextrose 50%) 50 ml Q30M PRN IV Hypoglycemia 06/22/18 16:45 07/21/18 06:44 Docusate Sodium (Colace) 100 mg TID ORAL 06/22/18 18:00 07/21/18 08:59 06/25/18 08:04 Fenofibrate (Tricor) 145 mg DAILY ORAL 06/23/18 09:00 07/22/18 14:29 06/25/18 08:38 Gabapentin (Neurontin) 100 mg BID ORAL 06/22/18 18:00 07/21/18 08:59 06/25/18 08:04 Heparin Sodium (Porcine) (Heparin 5000 units/ml) 5,000 units EVERY 12 HOURS SUBQ 06/22/18 21:00 07/21/18 08:59 06/25/18 08:12 Hydromorphone HCl (Dilaudid) 4 mg Q4H PRN ORAL pain 7-10 06/22/18 17:00 06/28/18 16:59 06/25/18 03:14 Insulin Aspart (NovoLOG) BEFORE MEALS AND HS SUBQ 06/22/18 16:30 07/21/18 06:29 06/25/18 06:05 Insulin Aspart (NovoLOG) 18 units NOVOTIAC SUBQ 06/25/18 11:50 07/21/18 06:44 Insulin Detemir (Levemir) 28 units BID SUBQ 06/25/18 09:00 07/21/18 08:59 06/25/18 08:42 Lactulose (Cephulac) 30 gm THREE TIMES A DAY ORAL 06/22/18 18:00 07/21/18 08:59 06/24/18 08:27 Lorazepam (Ativan 2mg/ml 1ml) 1 mg Q4H PRN IV For Anxiety 06/23/18 18:30 06/30/18 18:29 06/25/18 06:02 Magnesium Hydroxide (Mom) 30 ml DAILYPRN PRN ORAL Constipation 06/23/18 17:00 07/23/18 16:59 Methadone HCl (Methadone HCl) 15 mg EVERY 8 HOURS ORAL 06/22/18 22:00 06/28/18 05:59 06/25/18 06:02 Morphine Sulfate (Morphine Sulfate) 4 mg Q4H PRN IVP For Pain 06/22/18 17:15 06/28/18 01:14 06/25/18 08:05 Nicotine (Nicoderm) 1 patch Q24H TDERMAL 06/24/18 10:00 07/24/18 09:59 06/25/18 10:20 Oxybutynin Chloride (Ditropan) 10 mg BID ORAL 06/22/18 18:00 07/22/18 08:59 06/25/18 08:04 Pantoprazole (Protonix) 40 mg EVERY 12 HOURS ORAL 06/22/18 21:00 07/21/18 20:59 06/25/18 08:04 Sodium Phosphate (Fleet's Sodium Phosl Enema) 133 ml DAILYPRN PRN RECTAL constipation 06/23/18 09:00 07/23/18 08:59 06/23/18 17:03 Tizanidine HCl (Zanaflex) 2 mg Q12H PRN ORAL spasm 06/22/18 17:00 07/21/18 16:59 Trazodone HCl (Desyrel) 50 mg HSPRN PRN ORAL insomia 06/22/18 21:00 07/22/18 20:59 06/22/18 21:43 Joao Siu MD Jun 25, 2018 11:06
[2018-06-25] MEDS: Heparin1,000 units/500ml Premix(Conc:2 units/ml) IV SCH (11:30)
[2018-06-25] MEDS: Lidocaine 1% Plain 30 ml INJ SCH (11:30)
[2018-06-25 12:00] VITALS: BP 121/61
--- NOTE | 2018-06-25 12:05 | Cardiology Report ---
APPROVED REPORT EKG Measurement Heart [id number] VT [id number] [id number] Sinus tachycardia Biatrial enlargement Right axis deviation Cannot rule out Anterior infarct, age undetermined Abnormal ECG
--- NOTE | 2018-06-25 12:20 | Nephrology Progress Note ---
Assessment/Plan Problem List: (1) Hyponatremia (2) Diabetes mellitus Assessment: OOC (3) Sepsis (4) Paraplegia Assessment high K , due to hemolysis HypoNatremia due to High Glucose / hyperglycemia Uncontrolled Dm UTI ? Sepsis ? suprepubic cath, High lactic level Spina bifida / Paraplegia Limited mobility MS Plan BS control Urine culture 3% saline as needed tricor for high Trigs Monitor lytes per orders urine cultures Subjective ROS Limited/Unobtainable: No Constitutional: Reports: malaise Objective Objective Last 24 Hour Vital Signs Date Time Temp Pulse Resp B/P (MAP) Pulse Ox O2 Delivery O2 Flow Rate FiO2 06/25/18 09:00 Room Air 06/25/18 08:00 98.0 88 16 119/76 (90) 97 06/25/18 07:28 91 06/25/18 04:00 84 06/25/18 04:00 99.1 93 16 118/84 (95) 97 06/25/18 00:00 98.9 93 20 130/85 (100) 98 06/25/18 00:00 95 06/24/18 21:00 Room Air 06/24/18 20:00 94 06/24/18 20:00 98.9 94 22 112/75 (87) 98 06/24/18 16:00 100 Intake and Output 06/24/18 06/25/18 18:59 06:59 Intake Total 890 ml 240 ml Output Total 1500 ml 2400 ml Balance -610 ml -2160 ml Intake Oral 240 ml IV Total 90 ml Other 800 ml Output Urine Total 1500 ml 2400 ml # Bowel Movements 1 1 Laboratory Tests 06/25/18 10:00: White Blood Count 7.0, Red Blood Count 4.07L, Hemoglobin 11.4L, Hematocrit 35.1L , Mean Corpuscular Volume 86, Mean Corpuscular Hemoglobin 27.9, Mean Corpuscular Hemoglobin Concent 32.4, Red Cell Distribution Width 15.0H, Platelet Count 203, Mean Platelet Volume 6.5, Neutrophils (%) (Auto) 62.6, Lymphocytes (%) (Auto) 25.4, Monocytes (%) (Auto) 8.6, Eosinophils (%) (Auto) 2.3, Basophils (%) (Auto) 1.1, Sodium Level 131L, Potassium Level 5.3H, Chloride Level 99, Carbon Dioxide Level 22, Anion Gap 10, Blood Urea Nitrogen 17 , Creatinine 0.4L, Estimat Glomerular Filtration Rate > 60, Glucose Level 298H, Calcium Level 8.4L Height (Feet): 5 Height (Inches): 4.00 Weight (Pounds): 207 General Appearance: no apparent distress Respiratory/Chest: decreased breath sounds Abdomen: distended Objective no change Elvin Robles MD Jun 25, 2018 12:20
[2018-06-25] MEDS ORDERED: LORazepam Inj 2mg/ml 1ml IV PRN ×2 (12:28→12:30)
[2018-06-25] MEDS ORDERED: LORazepam Inj 2mg/ml 1ml IM PRN ×2 (12:29→12:45)
--- NOTE | 2018-06-25 12:35 | Surgery Progress Note ---
Surgery Progress Note Subjective Symptoms: tolerating diet, passing flatus, BM Additional Comments no acute events. resting comfortable. no complaints. abd less distended today Objective Last 24 Hour Vital Signs Date Time Temp Pulse Resp B/P (MAP) Pulse Ox O2 Delivery O2 Flow Rate FiO2 06/25/18 09:00 Room Air 06/25/18 08:00 98.0 88 16 119/76 (90) 97 06/25/18 07:28 91 06/25/18 04:00 84 06/25/18 04:00 99.1 93 16 118/84 (95) 97 06/25/18 00:00 98.9 93 20 130/85 (100) 98 06/25/18 00:00 95 06/24/18 21:00 Room Air 06/24/18 20:00 94 06/24/18 20:00 98.9 94 22 112/75 (87) 98 06/24/18 16:00 100 I&O Intake and Output 06/24/18 06/25/18 18:59 06:59 Intake Total 890 ml 240 ml Output Total 1500 ml 2400 ml Balance -610 ml -2160 ml Intake Oral 240 ml IV Total 90 ml Other 800 ml Output Urine Total 1500 ml 2400 ml # Bowel Movements 1 1 Cardiovascular: RSR Respiratory: clear Abdomen: soft, distended - improved, non-tender, present bowel sounds Extremities: no tenderness, no cyanosis Laboratory Tests Test 06/25/18 10:00 White Blood Count 7.0 K/UL (4.8-10.8) Red Blood Count 4.07 M/UL (4.70-6.10) L Hemoglobin 11.4 G/DL (14.2-18.0) L Hematocrit 35.1 % (42.0-52.0) L Mean Corpuscular Volume 86 FL (80-99) Mean Corpuscular Hemoglobin 27.9 PG (27.0-31.0) Mean Corpuscular Hemoglobin Concent 32.4 G/DL (32.0-36.0) Red Cell Distribution Width 15.0 % (11.6-14.8) H Platelet Count 203 K/UL (150-450) Mean Platelet Volume 6.5 FL (6.5-10.1) Neutrophils (%) (Auto) 62.6 % (45.0-75.0) Lymphocytes (%) (Auto) 25.4 % (20.0-45.0) Monocytes (%) (Auto) 8.6 % (1.0-10.0) Eosinophils (%) (Auto) 2.3 % (0.0-3.0) Basophils (%) (Auto) 1.1 % (0.0-2.0) Sodium Level 131 MMOL/L (136-145) L Potassium Level 5.3 MMOL/L (3.5-5.1) H Chloride Level 99 MMOL/L (98-107) Carbon Dioxide Level 22 MMOL/L (21-32) Anion Gap 10 mmol/L (5-15) Blood Urea Nitrogen 17 mg/dL (7-18) Creatinine 0.4 MG/DL (0.55-1.30) L Estimat Glomerular Filtration Rate > 60 mL/min (>60) Glucose Level 298 MG/DL (74-106) H Calcium Level 8.4 MG/DL (8.5-10.1) L Plan Problems: (1) Abnormal urogenital findings (2) Paraplegia (3) Spina bifida (4) Diabetes mellitus Assessment & Plan: DAILY ESTIMATED NEEDS: Needs based on Quadriplegia, wound 65.5kg adj 23-28 kcals/kg 9662-9049 total kcals 1.25-1.5 g protein/kg 82-98 g total protein 25-30 mL/kg 6182-7453 total fluid mLs NUTRITION DIAGNOSIS: 1) Increased protein needs r/t wound healing and h/o quadriplegia as evidenced by pt w/ h/o stage 3 ischial wound and resolving sacral wound. 2) Altered nutrition related lab values r/t diabetes as evidenced by elev BG (633, 395) and elev POC, Uglu 4+ on adm. CURRENT DIET:[facility]HO MED PO DIET RECOMMENDATIONS: DIET CHANGE-> -> CCHO LOW W/ DOUBLE PROTEIN PORTIONS ADDITIONAL RECOMMENDATIONS: 1) Wound care: add JIM BID + VIT C 250mg BID + MVI x1 daily 2) Check A1C 3) RE-calibrate bed scale for accurate CWB 4) F/up w/ WC eval (5) Limited mobility in bed (6) Sepsis (7) Uncontrolled diabetes mellitus (8) Abdominal distension Assessment & Plan: stable as compared to prior exam continue with bowel regimen KUB noted will follow with serial exam and recs thank you (9) Decubitus skin ulcer Assessment & Plan: Pt presented on admission with multiple partial thickness pressure injuries secondary to shearing R,L Buttocks ,Scrotum and both ischial regions. Moisture related intertrigo noted to L groin and abd panus.All affected areas cleansed with Soap and water .Triad Paste applied to affected areas including pressure areas on buttocks and both ischail areas. Tx.plan: Apply Triad paste to abd fols, Both groin,Scrotum and Buttocks with each perineal care. Reposition At least every 2hours or as tolerated. Off-Load heels with Pillow. (10) Intractable back pain Additional Comments potassium elevated sodium low electrolytes replaced Endy De La Rosa Jun 25, 2018 12:35
--- NOTE | 2018-06-25 12:41 | Infectious Diseases Prog Note ---
Assessment/Plan Assessment/Plan IMPRESSION: 1. Positive blood culture with Staph epidermidis likely contamination 2. urinary tract infection 3. schizophrenia, noncompliance with medication, 4.diabetes mellitus, 5.chronic pain, 6.spina bifida, 7.chronic obstructive pulmonary disease, 8. s/p suprapubic catheter. RECOMMENDATION: Patient refuses antibiotics Observe off antibiotic Subjective ROS Limited/Unobtainable: No Constitutional: Reports: no symptoms Respiratory: Reports: no symptoms Cardiovascular: Reports: no symptoms Gastrointestinal/Abdominal: Reports: no symptoms Genitourinary: Reports: other - on & off suprabic pain Neurologic: Reports: no symptoms Allergies: Coded Allergies: CIPROFLOXACIN (Verified Allergy, Unknown, 06/14/18) HALOPERIDOL (Verified Allergy, Unknown, 06/14/18) RISPERIDONE (Verified Allergy, Unknown, 06/14/18) SENNA (Verified Allergy, Unknown, 06/14/18) Objective Vital Signs Last 24 Hour Vital Signs Date Time Temp Pulse Resp B/P (MAP) Pulse Ox O2 Delivery O2 Flow Rate FiO2 06/25/18 09:00 Room Air 06/25/18 08:00 98.0 88 16 119/76 (90) 97 06/25/18 07:28 91 06/25/18 04:00 84 06/25/18 04:00 99.1 93 16 118/84 (95) 97 06/25/18 00:00 98.9 93 20 130/85 (100) 98 06/25/18 00:00 95 06/24/18 21:00 Room Air 06/24/18 20:00 94 06/24/18 20:00 98.9 94 22 112/75 (87) 98 06/24/18 16:00 100 Height (Feet): 5 Height (Inches): 4.00 Weight (Pounds): 207 General Appearance: no acute distress, other - obese Respiratory/Chest: lungs clear Cardiovascular: normal rate Abdomen: soft, non tender Genitourinary: other - suprabubic catheter Extremities: no edema Neurologic/Psychiatric: alert, responsive Microbiology Date/Time Source Procedure Growth Status 06/24/18 08:15 Urine,Suprapubic Urine Culture - Preliminary Gram Negative Bacillus 1 Gram Negative Bacillus 2 Resulted Laboratory Tests Test 06/25/18 10:00 White Blood Count 7.0 K/UL (4.8-10.8) Red Blood Count 4.07 M/UL (4.70-6.10) L Hemoglobin 11.4 G/DL (14.2-18.0) L Hematocrit 35.1 % (42.0-52.0) L Mean Corpuscular Volume 86 FL (80-99) Mean Corpuscular Hemoglobin 27.9 PG (27.0-31.0) Mean Corpuscular Hemoglobin Concent 32.4 G/DL (32.0-36.0) Red Cell Distribution Width 15.0 % (11.6-14.8) H Platelet Count 203 K/UL (150-450) Mean Platelet Volume 6.5 FL (6.5-10.1) Neutrophils (%) (Auto) 62.6 % (45.0-75.0) Lymphocytes (%) (Auto) 25.4 % (20.0-45.0) Monocytes (%) (Auto) 8.6 % (1.0-10.0) Eosinophils (%) (Auto) 2.3 % (0.0-3.0) Basophils (%) (Auto) 1.1 % (0.0-2.0) Sodium Level 131 MMOL/L (136-145) L Potassium Level 5.3 MMOL/L (3.5-5.1) H Chloride Level 99 MMOL/L (98-107) Carbon Dioxide Level 22 MMOL/L (21-32) Anion Gap 10 mmol/L (5-15) Blood Urea Nitrogen 17 mg/dL (7-18) Creatinine 0.4 MG/DL (0.55-1.30) L Estimat Glomerular Filtration Rate > 60 mL/min (>60) Glucose Level 298 MG/DL (74-106) H Calcium Level 8.4 MG/DL (8.5-10.1) L Current Medications Medications (Trade) Dose Ordered Sig/Trevin Route PRN Reason Start Time Stop Time Status Last Admin Dose Admin Aripiprazole (Abilify) 10 mg DAILY ORAL 06/25/18 12:15 07/25/18 12:14 Chlorhexidine Gluconate (Becca-Hex 2%) 1 applic DAILY@1999 TOPIC 06/25/18 20:00 07/25/18 19:59 Dextrose (Dextrose 50%) 25 ml Q30M PRN IV Hypoglycemia 06/22/18 16:45 07/21/18 06:44 Dextrose (Dextrose 50%) 50 ml Q30M PRN IV Hypoglycemia 06/22/18 16:45 07/21/18 06:44 Docusate Sodium (Colace) 100 mg TID ORAL 06/22/18 18:00 07/21/18 08:59 06/25/18 08:04 Fenofibrate (Tricor) 145 mg DAILY ORAL 06/23/18 09:00 07/22/18 14:29 06/25/18 08:38 Gabapentin (Neurontin) 100 mg BID ORAL 06/22/18 18:00 07/21/18 08:59 06/25/18 08:04 Heparin Sodium (Porcine) (Heparin 5000 units/ml) 5,000 units EVERY 12 HOURS SUBQ 06/22/18 21:00 07/21/18 08:59 06/25/18 08:12 Heparin Sodium/ Sodium Chloride (Heparin 1000 units/500ml Premix) 1,000 unit ONCE IV 06/25/18 11:30 06/27/18 11:29 Hydromorphone HCl (Dilaudid) 4 mg Q4H PRN ORAL pain 7-10 06/22/18 17:00 06/28/18 16:59 06/25/18 03:14 Insulin Aspart (NovoLOG) BEFORE MEALS AND HS SUBQ 06/22/18 16:30 07/21/18 06:29 06/25/18 11:41 Insulin Aspart (NovoLOG) 18 units NOVOTIAC SUBQ 06/25/18 11:50 07/21/18 06:44 06/25/18 11:44 Insulin Detemir (Levemir) 28 units BID SUBQ 06/25/18 09:00 07/21/18 08:59 06/25/18 08:42 Lactulose (Cephulac) 30 gm THREE TIMES A DAY ORAL 06/22/18 18:00 07/21/18 08:59 06/24/18 08:27 Lidocaine HCl (Xylocaine 1% 30ml) 30 ml ONCE INJ 06/25/18 11:30 06/27/18 11:29 Lorazepam (Ativan 2mg/ml 1ml) 1 mg Q4H PRN IM For Anxiety 06/25/18 12:45 07/02/18 12:28 Lorazepam (Ativan 2mg/ml 1ml) 1 mg Q4H PRN IV For Anxiety 06/25/18 12:45 07/02/18 12:29 Magnesium Hydroxide (Mom) 30 ml DAILYPRN PRN ORAL Constipation 06/23/18 17:00 07/23/18 16:59 Methadone HCl (Methadone HCl) 15 mg EVERY 8 HOURS ORAL 06/22/18 22:00 06/28/18 05:59 06/25/18 06:02 Morphine Sulfate (Morphine Sulfate) 4 mg Q4H PRN IVP For Pain 06/22/18 17:15 06/28/18 01:14 06/25/18 08:05 Nicotine (Nicoderm) 1 patch Q24H TDERMAL 06/24/18 10:00 07/24/18 09:59 06/25/18 10:20 Oxybutynin Chloride (Ditropan) 10 mg BID ORAL 06/22/18 18:00 07/22/18 08:59 06/25/18 08:04 Pantoprazole (Protonix) 40 mg EVERY 12 HOURS ORAL 06/22/18 21:00 07/21/18 20:59 06/25/18 08:04 Sodium Chloride 1,000 ml @ 999 mls/hr Q1H1M IV 06/25/18 11:30 06/25/18 19:00 Sodium Phosphate (Fleet's Sodium Phosl Enema) 133 ml DAILYPRN PRN RECTAL constipation 06/23/18 09:00 07/23/18 08:59 06/23/18 17:03 Tizanidine HCl (Zanaflex) 2 mg Q12H PRN ORAL spasm 06/22/18 17:00 07/21/18 16:59 Trazodone HCl (Desyrel) 50 mg HSPRN PRN ORAL insomia 06/22/18 21:00 07/22/18 20:59 06/22/18 21:43 Daniel Murcia MD Jun 25, 2018 12:41
--- NOTE | 2018-06-25 13:00 | Consultation ---
DATE OF CONSULTATION: 06/22/2018 NOTE: POOR AUDIO PSYCHOTHERAPY CONSULTATION PROGRESS NOTE CONSULTING PHYSICIAN: Ashly Pacheco M.D. TREATING ATTENDING PHYSICIAN: John Estevez M.D. HISTORY OF PRESENT ILLNESS: This is a 42-year-old male patient. The patient was brought in to the hospital for weakness, elevated blood sugar, continues pain. The patient apparently has a history of mental illness, depression, anxiety, and possible bipolar disorder. For these reasons, he was referred for psychotherapeutic services. The patient apparently cursing nursing staff. He has been yelling, screaming, cursing at the treatment team. When this clinician assessed the patient, the patient's thoughts were scattered, tangential, he is hyperverbal, extremely agitated. He states that he has had treatment for mental illness in the past. He states that he has a history of bipolar disorder. The patient has been disorganized, agitated, and irritable. However, denies suicidal or homicidal thoughts of ideation. Denies any auditory or visual hallucination. He states that he has been anxious because he believes that his is causing him anxiety and his make him more anxious . PAST MEDICAL HISTORY: Includes a history of constipation, chronic pain, bladder spasm, . ALLERGIES: The patient has allergies to Cipro, Haldol, risperidone, and senna. PSYCHIATRIC HISTORY: The patient has a bipolar disorder. SOCIAL HISTORY: The patient is a 42-year-old male patient from [facility]. He is financially sustained through [facility]. MENTAL STATUS EXAMINATION: Alert and oriented to person and place. Mood is irritable. Affect labile. Thought process is fair. Thought content, delusional with poor attention and concentration. Poor insight, judgment, and impulse control. DIAGNOSIS: Bipolar disorder mixed, manic with psychotic features. PLAN: Today, I assessed the patient and provided the patient with, 1. Reality orientation focused on improving cognitive function of the patient who is confused and disorganized. Oriented to person, place, time, and situation. 2. Provided the patient with cognitive behavior therapy addressing the patient's cognitive distortions and delusions, distortions and disturbances. Discussing more rationale reality based process positive coping skills. The patient and encouraging to participate in treatment . medication compliant with positive coping skills, . The patient . The patient's chart discussed with treatment team. Ashly Pacheco PsyD. DR: SYLVIA JOB#: [id number] CC:
[2018-06-25] MEDS: ARIPiprazole 10mg tab ORAL SCH (14:04)
[2018-06-25 16:00] VITALS: BP 148/91
[2018-06-25 20:00] VITALS: BP 144/70
[2018-06-25] MEDS: Dyna-Hex 2% Top Sol 2oz TOPIC SCH (20:55)
[2018-06-25] MEDS: Depakote 500mg tab ORAL SCH (20:55)
--- NOTE | 2018-06-25 23:22 | General Progress Note ---
Assessment/Plan Problem List: (1) Paraplegia ICD Codes: G82.20 - Paraplegia, unspecified SNOMED: 23481757 (2) Sepsis ICD Codes: A41.9 - Sepsis, unspecified organism SNOMED: 51243452 (3) Diabetes mellitus ICD Codes: E11.9 - Type 2 diabetes mellitus without complications SNOMED: 17910490 (4) Spina bifida ICD Codes: Q05.9 - Spina bifida, unspecified SNOMED: 30368162 (5) Bladder spasm ICD Codes: N32.89 - Other specified disorders of bladder SNOMED: 466666717 (6) Intractable back pain ICD Codes: M54.9 - Dorsalgia, unspecified SNOMED: 547766250 (7) Decubitus skin ulcer ICD Codes: L89.90 - Pressure ulcer of unspecified site, unspecified stage SNOMED: 187925702 (8) Abdominal distension ICD Codes: R14.0 - Abdominal distension (gaseous) SNOMED: 00481184 Status: progressing Assessment: consulted urologist for bladder spasm and urine incontinenc chronic pain syndrome paraplegia anxiety seizure spina bifida afebrile Subjective ROS Limited/Unobtainable: Yes Allergies: Coded Allergies: CIPROFLOXACIN (Verified Allergy, Unknown, 06/14/18) HALOPERIDOL (Verified Allergy, Unknown, 06/14/18) RISPERIDONE (Verified Allergy, Unknown, 06/14/18) SENNA (Verified Allergy, Unknown, 06/14/18) Objective Last 24 Hour Vital Signs Date Time Temp Pulse Resp B/P (MAP) Pulse Ox O2 Delivery O2 Flow Rate FiO2 06/25/18 21:00 Room Air 06/25/18 20:00 99.5 96 18 144/70 (94) 99 06/25/18 20:00 99 06/25/18 16:00 98.3 87 23 148/91 (110) 96 06/25/18 15:26 99 06/25/18 12:00 98.1 91 20 121/61 (81) 96 06/25/18 11:28 85 06/25/18 09:00 Room Air 06/25/18 08:00 98.0 88 16 119/76 (90) 97 06/25/18 07:28 91 06/25/18 04:00 84 06/25/18 04:00 99.1 93 16 118/84 (95) 97 06/25/18 00:00 98.9 93 20 130/85 (100) 98 06/25/18 00:00 95 Intake and Output 06/24/18 06/25/18 19:00 07:00 Intake Total 890 ml 240 ml Output Total 1500 ml 2400 ml Balance -610 ml -2160 ml Intake Oral 240 ml IV Total 90 ml Other 800 ml Output Urine Total 1500 ml 2400 ml # Bowel Movements 1 1 Laboratory Tests 06/25/18 10:00: White Blood Count 7.0, Red Blood Count 4.07L, Hemoglobin 11.4L, Hematocrit 35.1L , Mean Corpuscular Volume 86, Mean Corpuscular Hemoglobin 27.9, Mean Corpuscular Hemoglobin Concent 32.4, Red Cell Distribution Width 15.0H, Platelet Count 203, Mean Platelet Volume 6.5, Neutrophils (%) (Auto) 62.6, Lymphocytes (%) (Auto) 25.4, Monocytes (%) (Auto) 8.6, Eosinophils (%) (Auto) 2.3, Basophils (%) (Auto) 1.1, Sodium Level 131L, Potassium Level 5.3H, Chloride Level 99, Carbon Dioxide Level 22, Anion Gap 10, Blood Urea Nitrogen 17 , Creatinine 0.4L, Estimat Glomerular Filtration Rate > 60, Glucose Level 298H, Calcium Level 8.4L Height (Feet): 5 Height (Inches): 4.00 Weight (Pounds): 207 Cardiovascular: normal peripheral pulses Respiratory/Chest: lungs clear John Estevez MD Jun 25, 2018 23:21
[2018-06-26] VITALS: BP 142/72
[2018-06-26] MEDS: LORazepam Inj 2mg/ml 1ml IV PRN ×6 (01:48→23:33)
[2018-06-26] MEDS: Morphine Sulfate 4mg/ml Inj (IV USE ONLY) IVP PRN ×5 (02:47→21:04)
[2018-06-26] MEDS: NovoLOG Insulin Flexpen SUBQ SCH ×7 (06:04→20:30)
--- NOTE | 2018-06-26 06:35 | General Progress Note ---
Assessment/Plan Problem List: (1) Uncontrolled diabetes mellitus ICD Codes: E11.65 - Type 2 diabetes mellitus with hyperglycemia SNOMED: 41722060, 077337346 (2) Paraplegia ICD Codes: G82.20 - Paraplegia, unspecified SNOMED: 94107650 (3) Spina bifida ICD Codes: Q05.9 - Spina bifida, unspecified SNOMED: 30047067 Assessment: increase Levemir to 35 units bid increase Novolog to 20 units tid continue NISS ac / hs Subjective Allergies: Coded Allergies: CIPROFLOXACIN (Verified Allergy, Unknown, 06/14/18) HALOPERIDOL (Verified Allergy, Unknown, 06/14/18) RISPERIDONE (Verified Allergy, Unknown, 06/14/18) SENNA (Verified Allergy, Unknown, 06/14/18) All Systems: reviewed and negative except above Subjective events noted fasting glucose elevated Item Value Date Time Bedside Blood Glucose 442 mg/dl H 06/26/18 0604 Bedside Blood Glucose 342 mg/dl H 06/25/18 2102 Bedside Blood Glucose 266 mg/dl H 06/25/18 1735 Bedside Blood Glucose 288 mg/dl H 06/25/18 1144 Bedside Blood Glucose 270 mg/dl H 06/25/18 0842 Bedside Blood Glucose 270 mg/dl H 06/25/18 0630 Objective Last 24 Hour Vital Signs Date Time Temp Pulse Resp B/P (MAP) Pulse Ox O2 Delivery O2 Flow Rate FiO2 06/26/18 04:00 94 06/26/18 03:17 99.0 06/26/18 00:00 97 06/26/18 00:00 99.0 94 18 142/72 (95) 98 06/25/18 21:00 Room Air 06/25/18 20:00 99.5 96 18 144/70 (94) 99 06/25/18 20:00 99 06/25/18 16:00 98.3 87 23 148/91 (110) 96 06/25/18 15:26 99 06/25/18 12:00 98.1 91 20 121/61 (81) 96 06/25/18 11:28 85 06/25/18 09:00 Room Air 06/25/18 08:00 98.0 88 16 119/76 (90) 97 06/25/18 07:28 91 Intake and Output 06/25/18 06/26/18 19:00 07:00 Intake Total 2040 ml Output Total 2400 ml 2100 ml Balance -360 ml -2100 ml Intake Oral 240 ml IV Total 1000 ml Other 800 ml Output Urine Total 2400 ml 2100 ml # Bowel Movements 2 Laboratory Tests 06/25/18 10:00: White Blood Count 7.0, Red Blood Count 4.07L, Hemoglobin 11.4L, Hematocrit 35.1L , Mean Corpuscular Volume 86, Mean Corpuscular Hemoglobin 27.9, Mean Corpuscular Hemoglobin Concent 32.4, Red Cell Distribution Width 15.0H, Platelet Count 203, Mean Platelet Volume 6.5, Neutrophils (%) (Auto) 62.6, Lymphocytes (%) (Auto) 25.4, Monocytes (%) (Auto) 8.6, Eosinophils (%) (Auto) 2.3, Basophils (%) (Auto) 1.1, Sodium Level 131L, Potassium Level 5.3H, Chloride Level 99, Carbon Dioxide Level 22, Anion Gap 10, Blood Urea Nitrogen 17 , Creatinine 0.4L, Estimat Glomerular Filtration Rate > 60, Glucose Level 298H, Calcium Level 8.4L 06/26/18 06:00: Sodium Level [Pending], Potassium Level [Pending], Chloride Level [Pending], Carbon Dioxide Level [Pending], Blood Urea Nitrogen [Pending], Creatinine [ Pending], Estimat Glomerular Filtration Rate [Pending], Glucose Level [Pending] , Calcium Level [Pending], Uric Acid [Pending], Phosphorus Level [Pending], Magnesium Level [Pending], Total Bilirubin [Pending], Aspartate Amino Transf ( AST/SGOT) [Pending], Alanine Aminotransferase (ALT/SGPT) [Pending], Alkaline Phosphatase [Pending], Total Protein [Pending], Albumin [Pending], Globulin [ Pending] Height (Feet): 5 Height (Inches): 4.00 Weight (Pounds): 207 General Appearance: no apparent distress Neck: normal alignment Cardiovascular: normal rate Respiratory/Chest: lungs clear Abdomen: normal bowel sounds Objective Current Medications Medications (Trade) Dose Ordered Sig/Trevin Route PRN Reason Start Time Stop Time Status Last Admin Dose Admin Aripiprazole (Abilify) 10 mg DAILY ORAL 06/25/18 12:15 07/25/18 12:14 06/25/18 14:04 Chlorhexidine Gluconate (Becca-Hex 2%) 1 applic DAILY@2000 TOPIC 06/25/18 20:00 07/25/18 19:59 06/25/18 20:55 Dextrose (Dextrose 50%) 25 ml Q30M PRN IV Hypoglycemia 06/22/18 16:45 07/21/18 06:44 Dextrose (Dextrose 50%) 50 ml Q30M PRN IV Hypoglycemia 06/22/18 16:45 07/21/18 06:44 Divalproex Sodium (Depakote) 500 mg BEDTIME ORAL 06/25/18 21:00 07/25/18 20:59 06/25/18 20:55 Docusate Sodium (Colace) 100 mg TID ORAL 06/22/18 18:00 07/21/18 08:59 06/25/18 17:30 Fenofibrate (Tricor) 145 mg DAILY ORAL 06/23/18 09:00 07/22/18 14:29 06/25/18 08:38 Gabapentin (Neurontin) 100 mg BID ORAL 06/22/18 18:00 07/21/18 08:59 06/25/18 17:30 Heparin Sodium (Porcine) (Heparin 5000 units/ml) 5,000 units EVERY 12 HOURS SUBQ 06/22/18 21:00 07/21/18 08:59 06/25/18 20:59 Heparin Sodium/ Sodium Chloride (Heparin 1000 units/500ml Premix) 1,000 unit ONCE IV 06/25/18 11:30 06/27/18 11:29 Hydromorphone HCl (Dilaudid) 4 mg Q4H PRN ORAL pain 7-10 06/22/18 17:00 06/28/18 16:59 06/25/18 03:14 Insulin Aspart (NovoLOG) BEFORE MEALS AND HS SUBQ 06/22/18 16:30 07/21/18 06:29 06/26/18 06:04 Insulin Aspart (NovoLOG) 18 units NOVOTIAC SUBQ 06/25/18 11:50 07/21/18 06:44 06/25/18 17:34 Insulin Detemir (Levemir) 28 units BID SUBQ 06/25/18 09:00 07/21/18 08:59 06/25/18 17:35 Lactulose (Cephulac) 30 gm THREE TIMES A DAY ORAL 06/22/18 18:00 07/21/18 08:59 06/24/18 08:27 Lidocaine HCl (Xylocaine 1% 30ml) 30 ml ONCE INJ 06/25/18 11:30 06/27/18 11:29 Lorazepam (Ativan 2mg/ml 1ml) 1 mg Q4H PRN IM For Anxiety 06/25/18 12:45 07/02/18 12:28 06/25/18 20:56 Lorazepam (Ativan 2mg/ml 1ml) 1 mg Q4H PRN IV For Anxiety 06/25/18 12:45 07/02/18 12:29 06/26/18 05:55 Magnesium Hydroxide (Mom) 30 ml DAILYPRN PRN ORAL Constipation 06/23/18 17:00 07/23/18 16:59 Methadone HCl (Methadone HCl) 15 mg EVERY 8 HOURS ORAL 06/22/18 22:00 06/28/18 05:59 06/26/18 05:54 Morphine Sulfate (Morphine Sulfate) 4 mg Q4H PRN IVP For Pain 06/22/18 17:15 06/28/18 01:14 06/26/18 02:47 Nicotine (Nicoderm) 1 patch Q24H TDERMAL 06/24/18 10:00 07/24/18 09:59 06/25/18 10:20 Oxybutynin Chloride (Ditropan) 10 mg BID ORAL 06/22/18 18:00 07/22/18 08:59 06/25/18 17:31 Pantoprazole (Protonix) 40 mg EVERY 12 HOURS ORAL 06/22/18 21:00 07/21/18 20:59 06/25/18 20:55 Sodium Phosphate (Fleet's Sodium Phosl Enema) 133 ml DAILYPRN PRN RECTAL constipation 06/23/18 09:00 07/23/18 08:59 06/23/18 17:03 Tizanidine HCl (Zanaflex) 2 mg Q12H PRN ORAL spasm 06/22/18 17:00 07/21/18 16:59 06/26/18 04:19 Trazodone HCl (Desyrel) 50 mg HSPRN PRN ORAL insomia 4/19/19 21:00 07/22/18 20:59 06/22/18 21:43 Arden Rossi MD Jun 26, 2018 06:35
[2018-06-26 07:08] LABS: ALANINE AMINOTRANSFERASE 51 U/L (12-78); ALBUMIN 2.8 G/DL (3.4-5.0); ALBUMIN/GLOBULIN RATIO 0.6 (1.0-2.7); ALKALINE PHOSPHATASE 62 U/L (46-116); ANION GAP 13 mmol/L (5-15); ASPARTATE AMINO TRANSFERASE 25 U/L (15-37); BILIRUBIN,TOTAL 0.2 MG/DL (0.2-1.0); BLOOD UREA NITROGEN 21 mg/dL (7-18); CALCIUM 8.7 MG/DL (8.5-10.1); CARBON DIOXIDE 22 MMOL/L (21-32); CHLORIDE 97 MMOL/L (98-107); CREATININE 0.6 MG/DL (0.55-1.30); PHOSPHORUS 4.5 MG/DL (2.5-4.9); POTASSIUM 4.5 MMOL/L (3.5-5.1); SODIUM 131 MMOL/L (136-145)
[2018-06-26 08:00] VITALS: BP 119/72
[2018-06-26] MEDS: ARIPiprazole 10mg tab ORAL SCH (09:00)
[2018-06-26] MEDS: Lactulose 20gm/30ml UDC ORAL SCH ×3 (09:23→17:11)
[2018-06-26] MEDS: Docusate 100mg cap ORAL SCH ×3 (09:24→17:05)
[2018-06-26] MEDS: Oxybutynin 5mg tab ORAL SCH ×2 (09:24→17:05)
[2018-06-26] MEDS: Heparin 5000 units/ml inj SUBQ SCH ×2 (09:26→20:28)
[2018-06-26] MEDS: Levemir Flexpen SUBQ SCH ×2 (09:41→18:37)
--- NOTE | 2018-06-26 10:45 | Infectious Diseases Prog Note ---
Assessment/Plan Assessment/Plan IMPRESSION: 1. Positive blood culture with Staph epidermidis likely contamination 2. urinary tract infection 3. schizophrenia, noncompliance with medication, 4.diabetes mellitus, 5.chronic pain, 6.spina bifida, 7.chronic obstructive pulmonary disease, 8. s/p suprapubic catheter. 9. ESBL E. coli colonization RECOMMENDATION: Patient refuses antibiotics Observe off antibiotic Subjective ROS Limited/Unobtainable: No Constitutional: Reports: no symptoms Respiratory: Reports: no symptoms Cardiovascular: Reports: no symptoms Gastrointestinal/Abdominal: Reports: no symptoms Genitourinary: Reports: no symptoms Allergies: Coded Allergies: CIPROFLOXACIN (Verified Allergy, Unknown, 06/14/18) HALOPERIDOL (Verified Allergy, Unknown, 06/14/18) RISPERIDONE (Verified Allergy, Unknown, 06/14/18) SENNA (Verified Allergy, Unknown, 06/14/18) Objective Vital Signs Last 24 Hour Vital Signs Date Time Temp Pulse Resp B/P (MAP) Pulse Ox O2 Delivery O2 Flow Rate FiO2 06/26/18 04:00 94 06/26/18 03:17 99.0 06/26/18 00:00 97 06/26/18 00:00 99.0 94 18 142/72 (95) 98 06/25/18 21:00 Room Air 06/25/18 20:00 99.5 96 18 144/70 (94) 99 06/25/18 20:00 99 06/25/18 16:00 98.3 87 23 148/91 (110) 96 06/25/18 15:26 99 06/25/18 12:00 98.1 91 20 121/61 (81) 96 06/25/18 11:28 85 Height (Feet): 5 Height (Inches): 4.00 Weight (Pounds): 207 General Appearance: no acute distress HEENT: mucous membranes moist Respiratory/Chest: lungs clear Cardiovascular: normal rate Abdomen: soft, non tender Genitourinary: other - suprapubic catheter Extremities: no edema Neurologic/Psychiatric: alert, responsive, other - paraplegic Microbiology Date/Time Source Procedure Growth Status 06/24/18 08:15 Urine,Suprapubic Urine Culture - Final Proteus Mirabilis Escherichia Coli - Esbl Complete Laboratory Tests Test 06/26/18 06:00 Sodium Level 131 MMOL/L (136-145) L Potassium Level 4.5 MMOL/L (3.5-5.1) Chloride Level 97 MMOL/L (98-107) L Carbon Dioxide Level 22 MMOL/L (21-32) Anion Gap 13 mmol/L (5-15) Blood Urea Nitrogen 21 mg/dL (7-18) H Creatinine 0.6 MG/DL (0.55-1.30) Estimat Glomerular Filtration Rate > 60 mL/min (>60) Glucose Level 391 MG/DL (74-106) H Uric Acid 5.4 MG/DL (2.6-7.2) Calcium Level 8.7 MG/DL (8.5-10.1) Phosphorus Level 4.5 MG/DL (2.5-4.9) Magnesium Level 1.7 MG/DL (1.8-2.4) L Total Bilirubin 0.2 MG/DL (0.2-1.0) Aspartate Amino Transf (AST/SGOT) 25 U/L (15-37) Alanine Aminotransferase (ALT/SGPT) 51 U/L (12-78) Alkaline Phosphatase 62 U/L (46-116) Total Protein 7.3 G/DL (6.4-8.2) Albumin 2.8 G/DL (3.4-5.0) L Globulin 4.5 g/dL Albumin/Globulin Ratio 0.6 (1.0-2.7) L Current Medications Medications (Trade) Dose Ordered Sig/Trevin Route PRN Reason Start Time Stop Time Status Last Admin Dose Admin Aripiprazole (Abilify) 10 mg DAILY ORAL 06/25/18 12:15 07/25/18 12:14 06/25/18 14:04 Chlorhexidine Gluconate (Becca-Hex 2%) 1 applic DAILY@1999 TOPIC 06/25/18 20:00 07/25/18 19:59 06/25/18 20:55 Dextrose (Dextrose 50%) 25 ml Q30M PRN IV Hypoglycemia 06/22/18 16:45 07/21/18 06:44 Dextrose (Dextrose 50%) 50 ml Q30M PRN IV Hypoglycemia 06/22/18 16:45 07/21/18 06:44 Divalproex Sodium (Depakote) 500 mg BEDTIME ORAL 06/25/18 21:00 07/25/18 20:59 06/25/18 20:55 Docusate Sodium (Colace) 100 mg TID ORAL 06/22/18 18:00 07/21/18 08:59 06/26/18 09:24 Fenofibrate (Tricor) 145 mg DAILY ORAL 06/23/18 09:00 07/22/18 14:29 06/25/18 08:38 Gabapentin (Neurontin) 100 mg BID ORAL 06/22/18 18:00 07/21/18 08:59 06/26/18 09:24 Heparin Sodium (Porcine) (Heparin 5000 units/ml) 5,000 units EVERY 12 HOURS SUBQ 06/22/18 21:00 07/21/18 08:59 06/26/18 09:26 Heparin Sodium/ Sodium Chloride (Heparin 1000 units/500ml Premix) 1,000 unit ONCE IV 06/25/18 11:30 06/27/18 11:29 Hydromorphone HCl (Dilaudid) 4 mg Q4H PRN ORAL pain 7-10 06/22/18 17:00 06/28/18 16:59 06/25/18 03:14 Insulin Aspart (NovoLOG) BEFORE MEALS AND HS SUBQ 06/22/18 16:30 07/21/18 06:29 06/26/18 06:04 Insulin Aspart (NovoLOG) 20 units NOVOTIAC SUBQ 06/26/18 06:45 07/21/18 06:44 06/26/18 07:39 Insulin Detemir (Levemir) 35 units BID SUBQ 06/26/18 09:00 07/21/18 08:59 06/26/18 09:41 Lactulose (Cephulac) 30 gm THREE TIMES A DAY ORAL 06/22/18 18:00 07/21/18 08:59 06/26/18 09:23 Lidocaine HCl (Xylocaine 1% 30ml) 30 ml ONCE INJ 06/25/18 11:30 06/27/18 11:29 Lorazepam (Ativan 2mg/ml 1ml) 1 mg Q4H PRN IM For Anxiety 06/25/18 12:45 07/02/18 12:28 06/25/18 20:56 Lorazepam (Ativan 2mg/ml 1ml) 1 mg Q4H PRN IV For Anxiety 06/25/18 12:45 07/02/18 12:29 06/26/18 10:02 Magnesium Hydroxide (Mom) 30 ml DAILYPRN PRN ORAL Constipation 06/23/18 17:00 07/23/18 16:59 Methadone HCl (Methadone HCl) 15 mg EVERY 8 HOURS ORAL 06/22/18 22:00 06/28/18 05:59 06/26/18 05:54 Morphine Sulfate (Morphine Sulfate) 4 mg Q4H PRN IVP For Pain 06/22/18 17:15 06/28/18 01:14 06/26/18 07:33 Nicotine (Nicoderm) 1 patch Q24H TDERMAL 06/24/18 10:00 07/24/18 09:59 06/26/18 09:17 Oxybutynin Chloride (Ditropan) 10 mg BID ORAL 06/22/18 18:00 07/22/18 08:59 06/26/18 09:24 Pantoprazole (Protonix) 40 mg EVERY 12 HOURS ORAL 06/22/18 21:00 07/21/18 20:59 06/26/18 09:24 Sodium Phosphate (Fleet's Sodium Phosl Enema) 133 ml DAILYPRN PRN RECTAL constipation 06/23/18 09:00 07/23/18 08:59 06/23/18 17:03 Tizanidine HCl (Zanaflex) 2 mg Q12H PRN ORAL spasm 06/22/18 17:00 07/21/18 16:59 06/26/18 04:19 Trazodone HCl (Desyrel) 50 mg HSPRN PRN ORAL insomia 06/22/18 21:00 07/22/18 20:59 06/22/18 21:43 Daniel Murcia MD Jun 26, 2018 10:45
[2018-06-26] MEDS: Heparin1,000 units/500ml Premix(Conc:2 units/ml) IV SCH (11:30)
[2018-06-26] MEDS: Lidocaine 1% Plain 30 ml INJ SCH (11:30)
--- NOTE | 2018-06-26 11:39 | Pulmonology Progress Note ---
Assessment/Plan Problems: (1) Hyperkalemia (2) Hyponatremia (3) Sepsis (4) Uncontrolled diabetes mellitus (5) Spina bifida (6) Limited mobility in bed (7) Chronic suprapubic catheter (8) Paraplegia (9) Diabetes mellitus Assessment/Plan still tachycardica eating well check electrolytes iv fluids check cultures f/u ID recommendations pain management increase Methadone to 15 Q8 dvt prophylaxis. Subjective ROS Limited/Unobtainable: No Constitutional: Reports: no symptoms HEENT: Repors: no symptoms Allergies: Coded Allergies: CIPROFLOXACIN (Verified Allergy, Unknown, 06/14/18) HALOPERIDOL (Verified Allergy, Unknown, 06/14/18) RISPERIDONE (Verified Allergy, Unknown, 06/14/18) SENNA (Verified Allergy, Unknown, 06/14/18) Objective Last 24 Hour Vital Signs Date Time Temp Pulse Resp B/P (MAP) Pulse Ox O2 Delivery O2 Flow Rate FiO2 06/26/18 09:00 Room Air 06/26/18 08:00 98.2 86 20 119/72 (88) 98 06/26/18 08:00 86 06/26/18 04:00 94 06/26/18 03:17 99.0 06/26/18 00:00 97 06/26/18 00:00 99.0 94 18 142/72 (95) 98 06/25/18 21:00 Room Air 06/25/18 20:00 99.5 96 18 144/70 (94) 99 06/25/18 20:00 99 06/25/18 16:00 98.3 87 23 148/91 (110) 96 06/25/18 15:26 99 06/25/18 12:00 98.1 91 20 121/61 (81) 96 Intake and Output 06/25/18 06/26/18 18:59 06:59 Intake Total 2040 ml Output Total 2400 ml 2100 ml Balance -360 ml -2100 ml Intake Oral 240 ml IV Total 1000 ml Other 800 ml Output Urine Total 2400 ml 2100 ml # Bowel Movements 2 General Appearance: WD/WN, no acute distress HEENT: normocephalic Respiratory/Chest: chest wall non-tender, lungs clear Cardiovascular: normal peripheral pulses, normal rate Abdomen: normal bowel sounds, soft, non tender Extremities: no clubbing Neurologic/Psychiatric: epic manager II-XII grossly normal Microbiology Date/Time Source Procedure Growth Status 06/24/18 08:15 Urine,Suprapubic Urine Culture - Final Proteus Mirabilis Escherichia Coli - Esbl Complete Laboratory Tests 06/26/18 06:00: Sodium Level 131L, Potassium Level 4.5, Chloride Level 97L, Carbon Dioxide Level 22, Anion Gap 13, Blood Urea Nitrogen 21H, Creatinine 0.6, Estimat Glomerular Filtration Rate > 60, Glucose Level 391H, Uric Acid 5.4, Calcium Level 8.7, Phosphorus Level 4.5, Magnesium Level 1.7L, Total Bilirubin 0.2, Aspartate Amino Transf (AST/SGOT) 25, Alanine Aminotransferase (ALT/SGPT) 51, Alkaline Phosphatase 62, Total Protein 7.3, Albumin 2.8L, Globulin 4.5, Albumin/ Globulin Ratio 0.6L Current Medications Medications (Trade) Dose Ordered Sig/Trevin Route PRN Reason Start Time Stop Time Status Last Admin Dose Admin Aripiprazole (Abilify) 10 mg DAILY ORAL 06/25/18 12:15 07/25/18 12:14 06/25/18 14:04 Chlorhexidine Gluconate (Becca-Hex 2%) 1 applic DAILY@1999 TOPIC 06/25/18 20:00 07/25/18 19:59 06/25/18 20:55 Dextrose (Dextrose 50%) 25 ml Q30M PRN IV Hypoglycemia 06/22/18 16:45 07/21/18 06:44 Dextrose (Dextrose 50%) 50 ml Q30M PRN IV Hypoglycemia 06/22/18 16:45 07/21/18 06:44 Divalproex Sodium (Depakote) 500 mg BEDTIME ORAL 06/25/18 21:00 07/25/18 20:59 06/25/18 20:55 Docusate Sodium (Colace) 100 mg TID ORAL 06/22/18 18:00 07/21/18 08:59 06/26/18 09:24 Fenofibrate (Tricor) 145 mg DAILY ORAL 06/23/18 09:00 07/22/18 14:29 06/25/18 08:38 Gabapentin (Neurontin) 100 mg BID ORAL 06/22/18 18:00 07/21/18 08:59 06/26/18 09:24 Heparin Sodium (Porcine) (Heparin 5000 units/ml) 5,000 units EVERY 12 HOURS SUBQ 06/22/18 21:00 07/21/18 08:59 06/26/18 09:26 Heparin Sodium/ Sodium Chloride (Heparin 1000 units/500ml Premix) 1,000 unit ONCE IV 06/25/18 11:30 06/27/18 11:29 Hydromorphone HCl (Dilaudid) 4 mg Q4H PRN ORAL pain 7-10 06/22/18 17:00 06/28/18 16:59 06/25/18 03:14 Insulin Aspart (NovoLOG) BEFORE MEALS AND HS SUBQ 06/22/18 16:30 07/21/18 06:29 06/26/18 06:04 Insulin Aspart (NovoLOG) 20 units NOVOTIAC SUBQ 06/26/18 06:45 07/21/18 06:44 06/26/18 07:39 Insulin Detemir (Levemir) 35 units BID SUBQ 06/26/18 09:00 07/21/18 08:59 06/26/18 09:41 Lactulose (Cephulac) 30 gm THREE TIMES A DAY ORAL 06/22/18 18:00 07/21/18 08:59 06/26/18 09:23 Lidocaine HCl (Xylocaine 1% 30ml) 30 ml ONCE INJ 06/25/18 11:30 06/27/18 11:29 Lorazepam (Ativan 2mg/ml 1ml) 1 mg Q4H PRN IM For Anxiety 06/25/18 12:45 07/02/18 12:28 06/25/18 20:56 Lorazepam (Ativan 2mg/ml 1ml) 1 mg Q4H PRN IV For Anxiety 06/25/18 12:45 07/02/18 12:29 06/26/18 10:02 Magnesium Hydroxide (Mom) 30 ml DAILYPRN PRN ORAL Constipation 06/23/18 17:00 07/23/18 16:59 Methadone HCl (Methadone HCl) 15 mg EVERY 8 HOURS ORAL 06/22/18 22:00 06/28/18 05:59 06/26/18 05:54 Morphine Sulfate (Morphine Sulfate) 4 mg Q4H PRN IVP For Pain 06/22/18 17:15 06/28/18 01:14 06/26/18 07:33 Nicotine (Nicoderm) 1 patch Q24H TDERMAL 06/24/18 10:00 07/24/18 09:59 06/26/18 09:17 Oxybutynin Chloride (Ditropan) 10 mg BID ORAL 06/22/18 18:00 07/22/18 08:59 06/26/18 09:24 Pantoprazole (Protonix) 40 mg EVERY 12 HOURS ORAL 06/22/18 21:00 07/21/18 20:59 06/26/18 09:24 Sodium Phosphate (Fleet's Sodium Phosl Enema) 133 ml DAILYPRN PRN RECTAL constipation 06/23/18 09:00 07/23/18 08:59 06/23/18 17:03 Tizanidine HCl (Zanaflex) 2 mg Q12H PRN ORAL spasm 06/22/18 17:00 07/21/18 16:59 06/26/18 04:19 Trazodone HCl (Desyrel) 50 mg HSPRN PRN ORAL insomia 06/22/18 21:00 07/22/18 20:59 06/22/18 21:43 Joao Siu MD Jun 26, 2018 11:39
--- NOTE | 2018-06-26 11:53 | Nephrology Progress Note ---
Assessment/Plan Problem List: (1) Hyponatremia (2) Diabetes mellitus Assessment: OOC (3) Sepsis (4) Paraplegia Assessment high K , due to hemolysis HypoNatremia due to High Glucose / hyperglycemia Uncontrolled Dm UTI ? Sepsis ? suprepubic cath, High lactic level Spina bifida / Paraplegia Limited mobility MS Plan BS control Urine culture 3% saline as needed tricor for high Trigs Monitor lytes per orders urine cultures Subjective ROS Limited/Unobtainable: No Constitutional: Reports: malaise, weakness Objective Objective Last 24 Hour Vital Signs Date Time Temp Pulse Resp B/P (MAP) Pulse Ox O2 Delivery O2 Flow Rate FiO2 06/26/18 09:00 Room Air 06/26/18 08:00 98.2 86 20 119/72 (88) 98 06/26/18 08:00 86 06/26/18 04:00 94 06/26/18 03:17 99.0 06/26/18 00:00 97 06/26/18 00:00 99.0 94 18 142/72 (95) 98 06/25/18 21:00 Room Air 06/25/18 20:00 99.5 96 18 144/70 (94) 99 06/25/18 20:00 99 06/25/18 16:00 98.3 87 23 148/91 (110) 96 06/25/18 15:26 99 06/25/18 12:00 98.1 91 20 121/61 (81) 96 Intake and Output 06/25/18 06/26/18 18:59 06:59 Intake Total 2040 ml Output Total 2400 ml 2100 ml Balance -360 ml -2100 ml Intake Oral 240 ml IV Total 1000 ml Other 800 ml Output Urine Total 2400 ml 2100 ml # Bowel Movements 2 Laboratory Tests 06/26/18 06:00: Sodium Level 131L, Potassium Level 4.5, Chloride Level 97L, Carbon Dioxide Level 22, Anion Gap 13, Blood Urea Nitrogen 21H, Creatinine 0.6, Estimat Glomerular Filtration Rate > 60, Glucose Level 391H, Uric Acid 5.4, Calcium Level 8.7, Phosphorus Level 4.5, Magnesium Level 1.7L, Total Bilirubin 0.2, Aspartate Amino Transf (AST/SGOT) 25, Alanine Aminotransferase (ALT/SGPT) 51, Alkaline Phosphatase 62, Total Protein 7.3, Albumin 2.8L, Globulin 4.5, Albumin/ Globulin Ratio 0.6L Height (Feet): 5 Height (Inches): 4.00 Weight (Pounds): 207 General Appearance: no apparent distress Objective no change Elvin Robles MD Jun 26, 2018 11:53
[2018-06-26 12:00] VITALS: BP 119/71
--- NOTE | 2018-06-26 12:11 | Surgery Progress Note ---
Surgery Progress Note Subjective Additional Comments no acute events. doing well. had loose BM. comfortable. plans to have BM today. no complaints. Objective Last 24 Hour Vital Signs Date Time Temp Pulse Resp B/P (MAP) Pulse Ox O2 Delivery O2 Flow Rate FiO2 06/26/18 09:00 Room Air 06/26/18 08:00 98.2 86 20 119/72 (88) 98 06/26/18 08:00 86 06/26/18 04:00 94 06/26/18 03:17 99.0 06/26/18 00:00 97 06/26/18 00:00 99.0 94 18 142/72 (95) 98 06/25/18 21:00 Room Air 06/25/18 20:00 99.5 96 18 144/70 (94) 99 06/25/18 20:00 99 06/25/18 16:00 98.3 87 23 148/91 (110) 96 06/25/18 15:26 99 I&O Intake and Output 06/25/18 06/26/18 18:59 06:59 Intake Total 2040 ml Output Total 2400 ml 2100 ml Balance -360 ml -2100 ml Intake Oral 240 ml IV Total 1000 ml Other 800 ml Output Urine Total 2400 ml 2100 ml # Bowel Movements 2 Cardiovascular: RSR Respiratory: clear Abdomen: soft, distended, non-tender, present bowel sounds Extremities: no tenderness, no cyanosis Laboratory Tests Test 06/26/18 06:00 Sodium Level 131 MMOL/L (136-145) L Potassium Level 4.5 MMOL/L (3.5-5.1) Chloride Level 97 MMOL/L (98-107) L Carbon Dioxide Level 22 MMOL/L (21-32) Anion Gap 13 mmol/L (5-15) Blood Urea Nitrogen 21 mg/dL (7-18) H Creatinine 0.6 MG/DL (0.55-1.30) Estimat Glomerular Filtration Rate > 60 mL/min (>60) Glucose Level 391 MG/DL (74-106) H Uric Acid 5.4 MG/DL (2.6-7.2) Calcium Level 8.7 MG/DL (8.5-10.1) Phosphorus Level 4.5 MG/DL (2.5-4.9) Magnesium Level 1.7 MG/DL (1.8-2.4) L Total Bilirubin 0.2 MG/DL (0.2-1.0) Aspartate Amino Transf (AST/SGOT) 25 U/L (15-37) Alanine Aminotransferase (ALT/SGPT) 51 U/L (12-78) Alkaline Phosphatase 62 U/L (46-116) Total Protein 7.3 G/DL (6.4-8.2) Albumin 2.8 G/DL (3.4-5.0) L Globulin 4.5 g/dL Albumin/Globulin Ratio 0.6 (1.0-2.7) L Plan Problems: (1) Abnormal urogenital findings (2) Paraplegia (3) Spina bifida (4) Diabetes mellitus Assessment & Plan: DAILY ESTIMATED NEEDS: Needs based on Quadriplegia, wound 65.5kg adj 23-28 kcals/kg 5191-7973 total kcals 1.25-1.5 g protein/kg 82-98 g total protein 25-30 mL/kg 6442-2790 total fluid mLs NUTRITION DIAGNOSIS: 1) Increased protein needs r/t wound healing and h/o quadriplegia as evidenced by pt w/ h/o stage 3 ischial wound and resolving sacral wound. 2) Altered nutrition related lab values r/t diabetes as evidenced by elev BG (633, 395) and elev POC, Uglu 4+ on adm. CURRENT DIET:[facility] MED PO DIET RECOMMENDATIONS: DIET CHANGE-> -> CCHO LOW W/ DOUBLE PROTEIN PORTIONS ADDITIONAL RECOMMENDATIONS: 1) Wound care: add JIM BID + VIT C 250mg BID + MVI x1 daily 2) Check A1C 3) RE-calibrate bed scale for accurate CWB 4) F/up w/ WC eval (5) Limited mobility in bed (6) Sepsis (7) Uncontrolled diabetes mellitus (8) Abdominal distension Assessment & Plan: stable as compared to prior exam continue with bowel regimen KUB noted will follow with serial exam and recs d/c planning okay to discharge from surgical standpoint thank you (9) Decubitus skin ulcer Assessment & Plan: Pt presented on admission with multiple partial thickness pressure injuries secondary to shearing R,L Buttocks ,Scrotum and both ischial regions. Moisture related intertrigo noted to L groin and abd panus.All affected areas cleansed with Soap and water .Triad Paste applied to affected areas including pressure areas on buttocks and both ischail areas. Tx.plan: Apply Triad paste to abd fols, Both groin,Scrotum and Buttocks with each perineal care. Reposition At least every 2hours or as tolerated. Off-Load heels with Pillow. (10) Intractable back pain Endy De La Rosa Jun 26, 2018 12:11
--- NOTE | 2018-06-26 12:57 | Psych Consult Progress Note ---
Psychiatry Progress Note Psychiatry Progress Note Subjective this is a late entry 06/25/18 the pt was agitated and yelling. the pt was not manageable yesterday. the pt had med seeking behavior. the pt was labile Medications Current Medications Medications (Trade) Dose Ordered Sig/Trevin Route PRN Reason Start Time Stop Time Status Last Admin Dose Admin Aripiprazole (Abilify) 10 mg DAILY ORAL 06/25/18 12:15 07/25/18 12:14 06/25/18 14:04 Chlorhexidine Gluconate (Becca-Hex 2%) 1 applic DAILY@1999 TOPIC 06/25/18 20:00 07/25/18 19:59 06/25/18 20:55 Dextrose (Dextrose 50%) 25 ml Q30M PRN IV Hypoglycemia 06/22/18 16:45 07/21/18 06:44 Dextrose (Dextrose 50%) 50 ml Q30M PRN IV Hypoglycemia 06/22/18 16:45 07/21/18 06:44 Divalproex Sodium (Depakote) 500 mg BEDTIME ORAL 06/25/18 21:00 07/25/18 20:59 06/25/18 20:55 Docusate Sodium (Colace) 100 mg TID ORAL 06/22/18 18:00 07/21/18 08:59 06/26/18 12:47 Fenofibrate (Tricor) 145 mg DAILY ORAL 06/23/18 09:00 07/22/18 14:29 06/25/18 08:38 Gabapentin (Neurontin) 100 mg BID ORAL 06/22/18 18:00 07/21/18 08:59 06/26/18 09:24 Heparin Sodium (Porcine) (Heparin 5000 units/ml) 5,000 units EVERY 12 HOURS SUBQ 06/22/18 21:00 07/21/18 08:59 06/26/18 09:26 Heparin Sodium/ Sodium Chloride (Heparin 1000 units/500ml Premix) 1,000 unit ONCE IV 06/25/18 11:30 06/27/18 11:29 Hydromorphone HCl (Dilaudid) 4 mg Q4H PRN ORAL pain 7-10 06/22/18 17:00 06/28/18 16:59 06/25/18 03:14 Insulin Aspart (NovoLOG) BEFORE MEALS AND HS SUBQ 06/22/18 16:30 07/21/18 06:29 06/26/18 12:52 Insulin Aspart (NovoLOG) 20 units NOVOTIAC SUBQ 06/26/18 06:45 07/21/18 06:44 06/26/18 12:52 Insulin Detemir (Levemir) 35 units BID SUBQ 06/26/18 09:00 07/21/18 08:59 06/26/18 09:41 Lactulose (Cephulac) 30 gm THREE TIMES A DAY ORAL 06/22/18 18:00 07/21/18 08:59 06/26/18 09:23 Lidocaine HCl (Xylocaine 1% 30ml) 30 ml ONCE INJ 06/25/18 11:30 06/27/18 11:29 Lorazepam (Ativan 2mg/ml 1ml) 1 mg Q4H PRN IM For Anxiety 06/25/18 12:45 07/02/18 12:28 06/25/18 20:56 Lorazepam (Ativan 2mg/ml 1ml) 1 mg Q4H PRN IV For Anxiety 06/25/18 12:45 07/02/18 12:29 06/26/18 10:02 Magnesium Hydroxide (Mom) 30 ml DAILYPRN PRN ORAL Constipation 06/23/18 17:00 07/23/18 16:59 Magnesium Sulfate 100 ml @ 100 mls/hr Q1H IVPB 06/26/18 13:00 06/26/18 16:59 06/26/18 12:47 Methadone HCl (Methadone HCl) 15 mg EVERY 8 HOURS ORAL 06/22/18 22:00 06/28/18 05:59 06/26/18 05:54 Morphine Sulfate (Morphine Sulfate) 4 mg Q4H PRN IVP For Pain 06/22/18 17:15 06/28/18 01:14 06/26/18 12:37 Nicotine (Nicoderm) 1 patch Q24H TDERMAL 06/24/18 10:00 07/24/18 09:59 06/26/18 09:17 Oxybutynin Chloride (Ditropan) 10 mg BID ORAL 06/22/18 18:00 07/22/18 08:59 06/26/18 09:24 Pantoprazole (Protonix) 40 mg EVERY 12 HOURS ORAL 06/22/18 21:00 07/21/18 20:59 06/26/18 09:24 Sodium Chloride 250 ml @ 30 mls/hr ONCE ONCE IV 06/26/18 13:30 06/26/18 21:49 Sodium Phosphate (Fleet's Sodium Phosl Enema) 133 ml DAILYPRN PRN RECTAL constipation 06/23/18 09:00 07/23/18 08:59 06/23/18 17:03 Tizanidine HCl (Zanaflex) 2 mg Q12H PRN ORAL spasm 06/22/18 17:00 07/21/18 16:59 06/26/18 04:19 Trazodone HCl (Desyrel) 50 mg HSPRN PRN ORAL insomia 06/22/18 21:00 07/22/18 20:59 06/22/18 21:43 Allergies: Coded Allergies: CIPROFLOXACIN (Verified Allergy, Unknown, 06/14/18) HALOPERIDOL (Verified Allergy, Unknown, 06/14/18) RISPERIDONE (Verified Allergy, Unknown, 06/14/18) SENNA (Verified Allergy, Unknown, 06/14/18) Objective Data Height (Feet): 5 Height (Inches): 4.00 Weight (Pounds): 207 General Appearance: alert, agitated, alert oriented x3 Appearance: disheveled Mental Status Exam - Affect: blunted Mental Status Exam - Mood: irritable, angry, agitated Mental Status Exam - Thought P: illogical Mental Status Exam - Suicidal: not present Mental Status Exam - Cognition: no abnormalities Assessment/Plan Problem List: (1) MDD (major depressive disorder), recurrent episode, moderate ICD Codes: F33.1 - Major depressive disorder, recurrent, moderate SNOMED: 68112082, 653733412 Status: not improved, unchanged Plan: Abilify 10mg po qam trazodone prn Depakote 500mg po qhs Ativan prn provided jose/Grisel Burton MD Jun 26, 2018 12:57
--- NOTE | 2018-06-26 13:01 | Psych Consult Progress Note ---
Psychiatry Progress Note Psychiatry Progress Note Subjective The pt was calmer today and less agitated. the pt cont to have med seeking behaviors. the pt cont to be labile however more manageable . Medications Current Medications Medications (Trade) Dose Ordered Sig/Rtevin Route PRN Reason Start Time Stop Time Status Last Admin Dose Admin Aripiprazole (Abilify) 10 mg DAILY ORAL 06/25/18 12:15 07/25/18 12:14 06/25/18 14:04 Chlorhexidine Gluconate (Becca-Hex 2%) 1 applic DAILY@1999 TOPIC 06/25/18 20:00 07/25/18 19:59 06/25/18 20:55 Dextrose (Dextrose 50%) 25 ml Q30M PRN IV Hypoglycemia 06/22/18 16:45 07/21/18 06:44 Dextrose (Dextrose 50%) 50 ml Q30M PRN IV Hypoglycemia 06/22/18 16:45 07/21/18 06:44 Divalproex Sodium (Depakote) 500 mg BEDTIME ORAL 06/25/18 21:00 07/25/18 20:59 06/25/18 20:55 Docusate Sodium (Colace) 100 mg TID ORAL 06/22/18 18:00 07/21/18 08:59 06/26/18 12:47 Fenofibrate (Tricor) 145 mg DAILY ORAL 06/23/18 09:00 07/22/18 14:29 06/25/18 08:38 Gabapentin (Neurontin) 100 mg BID ORAL 06/22/18 18:00 07/21/18 08:59 06/26/18 09:24 Heparin Sodium (Porcine) (Heparin 5000 units/ml) 5,000 units EVERY 12 HOURS SUBQ 06/22/18 21:00 07/21/18 08:59 06/26/18 09:26 Heparin Sodium/ Sodium Chloride (Heparin 1000 units/500ml Premix) 1,000 unit ONCE IV 06/25/18 11:30 06/27/18 11:29 Hydromorphone HCl (Dilaudid) 4 mg Q4H PRN ORAL pain 7-10 06/22/18 17:00 06/28/18 16:59 06/25/18 03:14 Insulin Aspart (NovoLOG) BEFORE MEALS AND HS SUBQ 06/22/18 16:30 07/21/18 06:29 06/26/18 12:52 Insulin Aspart (NovoLOG) 20 units NOVOTIAC SUBQ 06/26/18 06:45 07/21/18 06:44 06/26/18 12:52 Insulin Detemir (Levemir) 35 units BID SUBQ 06/26/18 09:00 07/21/18 08:59 06/26/18 09:41 Lactulose (Cephulac) 30 gm THREE TIMES A DAY ORAL 06/22/18 18:00 07/21/18 08:59 06/26/18 09:23 Lidocaine HCl (Xylocaine 1% 30ml) 30 ml ONCE INJ 06/25/18 11:30 06/27/18 11:29 Lorazepam (Ativan 2mg/ml 1ml) 1 mg Q4H PRN IM For Anxiety 06/25/18 12:45 07/02/18 12:28 06/25/18 20:56 Lorazepam (Ativan 2mg/ml 1ml) 1 mg Q4H PRN IV For Anxiety 06/25/18 12:45 07/02/18 12:29 06/26/18 10:02 Magnesium Hydroxide (Mom) 30 ml DAILYPRN PRN ORAL Constipation 06/23/18 17:00 07/23/18 16:59 Magnesium Sulfate 100 ml @ 100 mls/hr Q1H IVPB 06/26/18 13:00 06/26/18 16:59 06/26/18 12:47 Methadone HCl (Methadone HCl) 15 mg EVERY 8 HOURS ORAL 06/22/18 22:00 06/28/18 05:59 06/26/18 05:54 Morphine Sulfate (Morphine Sulfate) 4 mg Q4H PRN IVP For Pain 06/22/18 17:15 06/28/18 01:14 06/26/18 12:37 Nicotine (Nicoderm) 1 patch Q24H TDERMAL 06/24/18 10:00 07/24/18 09:59 06/26/18 09:17 Oxybutynin Chloride (Ditropan) 10 mg BID ORAL 06/22/18 18:00 07/22/18 08:59 06/26/18 09:24 Pantoprazole (Protonix) 40 mg EVERY 12 HOURS ORAL 06/22/18 21:00 07/21/18 20:59 06/26/18 09:24 Sodium Chloride 250 ml @ 30 mls/hr ONCE ONCE IV 06/26/18 13:30 06/26/18 21:49 Sodium Phosphate (Fleet's Sodium Phosl Enema) 133 ml DAILYPRN PRN RECTAL constipation 06/23/18 09:00 07/23/18 08:59 06/23/18 17:03 Tizanidine HCl (Zanaflex) 2 mg Q12H PRN ORAL spasm 06/22/18 17:00 07/21/18 16:59 06/26/18 04:19 Trazodone HCl (Desyrel) 50 mg HSPRN PRN ORAL insomia 06/22/18 21:00 07/22/18 20:59 06/22/18 21:43 Allergies: Coded Allergies: CIPROFLOXACIN (Verified Allergy, Unknown, 06/14/18) HALOPERIDOL (Verified Allergy, Unknown, 06/14/18) RISPERIDONE (Verified Allergy, Unknown, 06/14/18) SENNA (Verified Allergy, Unknown, 06/14/18) Objective Data Height (Feet): 5 Height (Inches): 4.00 Weight (Pounds): 207 General Appearance: WD/WN, no apparent distress, alert, agitated, alert oriented x3 Appearance: disheveled Behavior Mannerisms: good eye contact Mental Status Exam - Affect: constricted Mental Status Exam - Mood: anxious, agitated Speech: clear Mental Status Exam - Thought P: illogical Mental Status Exam - Suicidal: not present Mental Status Exam - Cognition: no abnormalities Assessment/Plan Problem List: (1) MDD (major depressive disorder), recurrent episode, moderate ICD Codes: F33.1 - Major depressive disorder, recurrent, moderate SNOMED: 79493494, 402629485 Status: progressing Plan: abilify 10mg po qam depakote 500 po qhs provide ro/Grisel Burton MD Jun 26, 2018 13:01
[2018-06-26] MEDS ORDERED: NaCl 3% 500ml 250 ML IV ONE (13:30)
[2018-06-26 16:00] VITALS: BP 122/77
[2018-06-26 20:00] VITALS: BP 133/81
--- NOTE | 2018-06-26 20:26 | General Progress Note ---
Assessment/Plan Problem List: (1) Paraplegia ICD Codes: G82.20 - Paraplegia, unspecified SNOMED: 32050879 (2) Sepsis ICD Codes: A41.9 - Sepsis, unspecified organism SNOMED: 10949047 (3) Diabetes mellitus ICD Codes: E11.9 - Type 2 diabetes mellitus without complications SNOMED: 07890928 (4) Spina bifida ICD Codes: Q05.9 - Spina bifida, unspecified SNOMED: 30537961 (5) Bladder spasm ICD Codes: N32.89 - Other specified disorders of bladder SNOMED: 996500478 (6) Intractable back pain ICD Codes: M54.9 - Dorsalgia, unspecified SNOMED: 215633944 (7) Decubitus skin ulcer ICD Codes: L89.90 - Pressure ulcer of unspecified site, unspecified stage SNOMED: 871223714 (8) Abdominal distension ICD Codes: R14.0 - Abdominal distension (gaseous) SNOMED: 32159572 Status: unchanged Assessment: agitated and verbally abusive reviewed chart and labs and mes chronic pain syndrome paraplegia no seizure spina bifida afebrile Subjective ROS Limited/Unobtainable: Yes Allergies: Coded Allergies: CIPROFLOXACIN (Verified Allergy, Unknown, 06/14/18) HALOPERIDOL (Verified Allergy, Unknown, 06/14/18) RISPERIDONE (Verified Allergy, Unknown, 06/14/18) SENNA (Verified Allergy, Unknown, 06/14/18) Objective Last 24 Hour Vital Signs Date Time Temp Pulse Resp B/P (MAP) Pulse Ox O2 Delivery O2 Flow Rate FiO2 06/26/18 16:00 99.2 106 20 122/77 (92) 99 06/26/18 16:00 108 06/26/18 12:00 98.4 95 20 119/71 (87) 99 06/26/18 12:00 102 06/26/18 09:00 Room Air 06/26/18 08:00 98.2 86 20 119/72 (88) 98 06/26/18 08:00 86 06/26/18 04:00 94 06/26/18 03:17 99.0 06/26/18 00:00 97 06/26/18 00:00 99.0 94 18 142/72 (95) 98 06/25/18 21:00 Room Air Intake and Output 06/25/18 06/26/18 19:00 07:00 Intake Total 2040 ml Output Total 2400 ml 2100 ml Balance -360 ml -2100 ml Intake Oral 240 ml IV Total 1000 ml Other 800 ml Output Urine Total 2400 ml 2100 ml # Bowel Movements 2 Laboratory Tests 06/26/18 06:00: Sodium Level 131L, Potassium Level 4.5, Chloride Level 97L, Carbon Dioxide Level 22, Anion Gap 13, Blood Urea Nitrogen 21H, Creatinine 0.6, Estimat Glomerular Filtration Rate > 60, Glucose Level 391H, Uric Acid 5.4, Calcium Level 8.7, Phosphorus Level 4.5, Magnesium Level 1.7L, Total Bilirubin 0.2, Aspartate Amino Transf (AST/SGOT) 25, Alanine Aminotransferase (ALT/SGPT) 51, Alkaline Phosphatase 62, Total Protein 7.3, Albumin 2.8L, Globulin 4.5, Albumin/ Globulin Ratio 0.6L Height (Feet): 5 Height (Inches): 4.00 Weight (Pounds): 207 General Appearance: confused John Estevez MD Jun 26, 2018 20:26
[2018-06-26] MEDS: Dyna-Hex 2% Top Sol 2oz TOPIC SCH (20:27)
[2018-06-26] MEDS: Depakote 500mg tab ORAL SCH ×2 (20:28→20:35)
[2018-06-26] MEDS: Fleet's Enema 133ml RECTAL PRN (21:11)
[2018-06-27] VITALS (7 sets, daily range): BP systolic 123–144; BP diastolic 79–98
[2018-06-27] MEDS: NovoLOG Insulin Flexpen SUBQ SCH ×7 (06:08→21:38)
[2018-06-27 08:51] LABS: ALANINE AMINOTRANSFERASE 47 U/L (12-78); ALBUMIN 2.8 G/DL (3.4-5.0); ALBUMIN/GLOBULIN RATIO 0.6 (1.0-2.7); ALKALINE PHOSPHATASE 62 U/L (46-116); ANION GAP 10 mmol/L (5-15); ASPARTATE AMINO TRANSFERASE 19 U/L (15-37); BILIRUBIN,TOTAL 0.2 MG/DL (0.2-1.0); BLOOD UREA NITROGEN 17 mg/dL (7-18); CALCIUM 8.4 MG/DL (8.5-10.1); CARBON DIOXIDE 24 MMOL/L (21-32); CHLORIDE 102 MMOL/L (98-107); CREATININE 0.5 MG/DL (0.55-1.30); PHOSPHORUS 3.9 MG/DL (2.5-4.9); POTASSIUM 3.9 MMOL/L (3.5-5.1); SODIUM 136 MMOL/L (136-145); TRIGLYCERIDES 269 MG/DL (30-150)
[2018-06-27] MEDS: Morphine Sulfate 4mg/ml Inj (IV USE ONLY) IVP PRN ×3 (08:54→17:55)
[2018-06-27] MEDS: ARIPiprazole 10mg tab ORAL SCH (09:00)
[2018-06-27] MEDS: Lactulose 20gm/30ml UDC ORAL SCH ×3 (10:07→17:14)
[2018-06-27] MEDS: Oxybutynin 5mg tab ORAL SCH ×2 (10:08→17:15)
[2018-06-27] MEDS: Docusate 100mg cap ORAL SCH ×3 (10:08→17:15)
[2018-06-27] MEDS: Heparin 5000 units/ml inj SUBQ SCH ×2 (10:09→20:33)
[2018-06-27] MEDS: Levemir Flexpen SUBQ SCH (10:30)
[2018-06-27] MEDS: LORazepam Inj 2mg/ml 1ml IV PRN ×2 (11:03→20:31)
--- NOTE | 2018-06-27 12:27 | Pulmonology Progress Note ---
Assessment/Plan Problems: (1) Hyperkalemia (2) Hyponatremia (3) Sepsis (4) Uncontrolled diabetes mellitus (5) Spina bifida (6) Limited mobility in bed (7) Chronic suprapubic catheter (8) Paraplegia (9) Diabetes mellitus Assessment/Plan still tachycardic, but less than yesterday, eating well check electrolytes iv fluids check cultures f/u ID recommendations pain management increase Methadone to 15 Q8 dvt prophylaxis. med/surg pt doesn't want to go back to [place] Subjective ROS Limited/Unobtainable: No Constitutional: Reports: no symptoms Respiratory: Reports: no symptoms Allergies: Coded Allergies: CIPROFLOXACIN (Verified Allergy, Unknown, 06/14/18) HALOPERIDOL (Verified Allergy, Unknown, 06/14/18) RISPERIDONE (Verified Allergy, Unknown, 06/14/18) SENNA (Verified Allergy, Unknown, 06/14/18) Objective Last 24 Hour Vital Signs Date Time Temp Pulse Resp B/P (MAP) Pulse Ox O2 Delivery O2 Flow Rate FiO2 06/27/18 12:00 98.4 100 18 123/80 (94) 100 06/27/18 09:00 Room Air 06/27/18 08:00 100 06/27/18 08:00 98.1 105 17 128/85 (99) 99 06/27/18 04:00 97.9 101 24 134/86 (102) 99 06/27/18 04:00 102 06/27/18 00:00 94 06/27/18 00:00 98.0 93 24 134/84 (101) 98 06/26/18 21:34 99.2 06/26/18 21:00 Room Air 06/26/18 20:00 97.9 106 24 133/81 (98) 97 06/26/18 20:00 104 06/26/18 16:00 99.2 106 20 122/77 (92) 99 06/26/18 16:00 108 Intake and Output 06/26/18 06/27/18 19:00 07:00 Intake Total 760 ml 1200 ml Output Total 1300 ml 3100 ml Balance -540 ml -1900 ml Intake Oral 760 ml Other 1200 ml Output Urine Total 1300 ml 3100 ml General Appearance: WD/WN HEENT: normocephalic, anicteric Respiratory/Chest: chest wall non-tender, normal breath sounds Cardiovascular: normal peripheral pulses, regular rhythm Abdomen: normal bowel sounds, soft, non tender Neurologic/Psychiatric: fur polisher II-XII grossly normal Laboratory Tests 06/27/18 08:05: Sodium Level 136, Potassium Level 3.9, Chloride Level 102, Carbon Dioxide Level 24, Anion Gap 10, Blood Urea Nitrogen 17, Creatinine 0.5L, Estimat Glomerular Filtration Rate > 60, Glucose Level 214#H, Uric Acid 5.8, Calcium Level 8.4L, Phosphorus Level 3.9, Magnesium Level 1.7L, Total Bilirubin 0.2, Aspartate Amino Transf (AST/SGOT) 19, Alanine Aminotransferase (ALT/SGPT) 47, Alkaline Phosphatase 62, Total Protein 7.3, Albumin 2.8L, Globulin 4.5, Albumin/Globulin Ratio 0.6L, Triglycerides Level 269H Current Medications Medications (Trade) Dose Ordered Sig/Trevin Route PRN Reason Start Time Stop Time Status Last Admin Dose Admin Aripiprazole (Abilify) 10 mg DAILY ORAL 06/25/18 12:15 07/25/18 12:14 06/25/18 14:04 Chlorhexidine Gluconate (Becca-Hex 2%) 1 applic DAILY@1999 TOPIC 06/25/18 20:00 07/25/18 19:59 06/26/18 20:27 Dextrose (Dextrose 50%) 25 ml Q30M PRN IV Hypoglycemia 06/22/18 16:45 07/21/18 06:44 Dextrose (Dextrose 50%) 50 ml Q30M PRN IV Hypoglycemia 06/22/18 16:45 07/21/18 06:44 Divalproex Sodium (Depakote) 500 mg BEDTIME ORAL 06/25/18 21:00 07/25/18 20:59 06/25/18 20:55 Docusate Sodium (Colace) 100 mg TID ORAL 06/22/18 18:00 07/21/18 08:59 06/27/18 10:08 Fenofibrate (Tricor) 145 mg DAILY ORAL 06/23/18 09:00 07/22/18 14:29 06/25/18 08:38 Gabapentin (Neurontin) 100 mg BID ORAL 06/22/18 18:00 07/21/18 08:59 06/27/18 10:08 Heparin Sodium (Porcine) (Heparin 5000 units/ml) 5,000 units EVERY 12 HOURS SUBQ 4/19/19 21:00 07/21/18 08:59 06/27/18 10:09 Hydromorphone HCl (Dilaudid) 4 mg Q4H PRN ORAL pain 7-10 06/22/18 17:00 06/28/18 16:59 06/25/18 03:14 Insulin Aspart (NovoLOG) BEFORE MEALS AND HS SUBQ 06/22/18 16:30 07/21/18 06:29 06/27/18 06:08 Insulin Aspart (NovoLOG) 20 units NOVOTIAC SUBQ 06/26/18 06:45 07/21/18 06:44 06/27/18 06:09 Insulin Detemir (Levemir) 35 units BID SUBQ 06/26/18 09:00 07/21/18 08:59 06/27/18 10:30 Lactulose (Cephulac) 30 gm THREE TIMES A DAY ORAL 06/22/18 18:00 07/21/18 08:59 06/27/18 10:07 Lorazepam (Ativan 2mg/ml 1ml) 1 mg Q4H PRN IM For Anxiety 06/25/18 12:45 07/02/18 12:28 06/25/18 20:56 Lorazepam (Ativan 2mg/ml 1ml) 1 mg Q4H PRN IV For Anxiety 06/25/18 12:45 07/02/18 12:29 06/27/18 11:03 Magnesium Hydroxide (Mom) 30 ml DAILYPRN PRN ORAL Constipation 06/23/18 17:00 07/23/18 16:59 Methadone HCl (Methadone HCl) 15 mg EVERY 8 HOURS ORAL 06/22/18 22:00 06/28/18 05:59 06/27/18 06:00 Morphine Sulfate (Morphine Sulfate) 4 mg Q4H PRN IVP For Pain 06/22/18 17:15 06/28/18 01:14 06/27/18 08:54 Nicotine (Nicoderm) 1 patch Q24H TDERMAL 06/24/18 10:00 07/24/18 09:59 06/27/18 10:07 Oxybutynin Chloride (Ditropan) 10 mg BID ORAL 06/22/18 18:00 07/22/18 08:59 06/27/18 10:08 Pantoprazole (Protonix) 40 mg EVERY 12 HOURS ORAL 06/22/18 21:00 07/21/18 20:59 06/27/18 10:08 Sodium Phosphate (Fleet's Sodium Phosl Enema) 133 ml DAILYPRN PRN RECTAL constipation 06/23/18 09:00 07/23/18 08:59 06/26/18 21:11 Tizanidine HCl (Zanaflex) 2 mg Q12H PRN ORAL spasm 06/22/18 17:00 07/21/18 16:59 06/26/18 04:19 Trazodone HCl (Desyrel) 50 mg HSPRN PRN ORAL insomia 06/22/18 21:00 07/22/18 20:59 06/22/18 21:43 Joao Siu MD Jun 27, 2018 12:27
--- NOTE | 2018-06-27 13:13 | Infectious Diseases Prog Note ---
Assessment/Plan Assessment/Plan IMPRESSION: 1. Positive blood culture with Staph epidermidis likely contamination 2. urinary tract infection 3. schizophrenia, noncompliance with medication, 4.diabetes mellitus, 5.chronic pain, 6.spina bifida, 7.chronic obstructive pulmonary disease, 8. s/p suprapubic catheter. 9. ESBL E. coli colonization RECOMMENDATION: Patient refuses antibiotics Observe off antibiotic Subjective ROS Limited/Unobtainable: Yes Constitutional: Reports: no symptoms Respiratory: Reports: no symptoms Gastrointestinal/Abdominal: Reports: no symptoms Genitourinary: Reports: no symptoms, other Musculoskeletal: Reports: pain, other - controlled Allergies: Coded Allergies: CIPROFLOXACIN (Verified Allergy, Unknown, 06/14/18) HALOPERIDOL (Verified Allergy, Unknown, 06/14/18) RISPERIDONE (Verified Allergy, Unknown, 06/14/18) SENNA (Verified Allergy, Unknown, 06/14/18) Objective Vital Signs Last 24 Hour Vital Signs Date Time Temp Pulse Resp B/P (MAP) Pulse Ox O2 Delivery O2 Flow Rate FiO2 06/27/18 12:00 98.4 100 18 123/80 (94) 100 06/27/18 09:00 Room Air 06/27/18 08:00 100 06/27/18 08:00 98.1 105 17 128/85 (99) 99 06/27/18 04:00 97.9 101 24 134/86 (102) 99 06/27/18 04:00 102 06/27/18 00:00 94 06/27/18 00:00 98.0 93 24 134/84 (101) 98 06/26/18 21:34 99.2 06/26/18 21:00 Room Air 06/26/18 20:00 97.9 106 24 133/81 (98) 97 06/26/18 20:00 104 06/26/18 16:00 99.2 106 20 122/77 (92) 99 06/26/18 16:00 108 Height (Feet): 5 Height (Inches): 4.00 Weight (Pounds): 205 General Appearance: no acute distress HEENT: mucous membranes moist Respiratory/Chest: lungs clear Cardiovascular: normal rate Abdomen: soft, non tender Genitourinary: other - suprapubic catheter Extremities: no edema, other - Finger clubbing Neurologic/Psychiatric: alert, responsive Laboratory Tests Test 06/27/18 08:05 Sodium Level 136 MMOL/L (136-145) Potassium Level 3.9 MMOL/L (3.5-5.1) Chloride Level 102 MMOL/L (98-107) Carbon Dioxide Level 24 MMOL/L (21-32) Anion Gap 10 mmol/L (5-15) Blood Urea Nitrogen 17 mg/dL (7-18) Creatinine 0.5 MG/DL (0.55-1.30) L Estimat Glomerular Filtration Rate > 60 mL/min (>60) Glucose Level 214 MG/DL (74-106) #H Uric Acid 5.8 MG/DL (2.6-7.2) Calcium Level 8.4 MG/DL (8.5-10.1) L Phosphorus Level 3.9 MG/DL (2.5-4.9) Magnesium Level 1.7 MG/DL (1.8-2.4) L Total Bilirubin 0.2 MG/DL (0.2-1.0) Aspartate Amino Transf (AST/SGOT) 19 U/L (15-37) Alanine Aminotransferase (ALT/SGPT) 47 U/L (12-78) Alkaline Phosphatase 62 U/L (46-116) Total Protein 7.3 G/DL (6.4-8.2) Albumin 2.8 G/DL (3.4-5.0) L Globulin 4.5 g/dL Albumin/Globulin Ratio 0.6 (1.0-2.7) L Triglycerides Level 269 MG/DL (30-150) H Current Medications Medications (Trade) Dose Ordered Sig/Trevin Route PRN Reason Start Time Stop Time Status Last Admin Dose Admin Aripiprazole (Abilify) 10 mg DAILY ORAL 06/25/18 12:15 07/25/18 12:14 06/25/18 14:04 Chlorhexidine Gluconate (Becca-Hex 2%) 1 applic DAILY@1999 TOPIC 06/25/18 20:00 07/25/18 19:59 06/26/18 20:27 Dextrose (Dextrose 50%) 25 ml Q30M PRN IV Hypoglycemia 06/22/18 16:45 07/21/18 06:44 Dextrose (Dextrose 50%) 50 ml Q30M PRN IV Hypoglycemia 06/22/18 16:45 07/21/18 06:44 Divalproex Sodium (Depakote) 500 mg BEDTIME ORAL 06/25/18 21:00 07/25/18 20:59 06/25/18 20:55 Docusate Sodium (Colace) 100 mg TID ORAL 06/22/18 18:00 07/21/18 08:59 06/27/18 12:43 Fenofibrate (Tricor) 145 mg DAILY ORAL 06/23/18 09:00 07/22/18 14:29 06/25/18 08:38 Gabapentin (Neurontin) 100 mg BID ORAL 06/22/18 18:00 07/21/18 08:59 06/27/18 10:08 Heparin Sodium (Porcine) (Heparin 5000 units/ml) 5,000 units EVERY 12 HOURS SUBQ 06/22/18 21:00 07/21/18 08:59 06/27/18 10:09 Hydromorphone HCl (Dilaudid) 4 mg Q4H PRN ORAL pain 7-10 06/22/18 17:00 06/28/18 16:59 06/25/18 03:14 Insulin Aspart (NovoLOG) BEFORE MEALS AND HS SUBQ 06/22/18 16:30 07/21/18 06:29 06/27/18 12:41 Insulin Aspart (NovoLOG) 20 units NOVOTIAC SUBQ 06/26/18 06:45 07/21/18 06:44 06/27/18 11:50 Insulin Detemir (Levemir) 35 units BID SUBQ 06/26/18 09:00 07/21/18 08:59 06/27/18 10:30 Lactulose (Cephulac) 30 gm THREE TIMES A DAY ORAL 06/22/18 18:00 07/21/18 08:59 06/27/18 10:07 Lorazepam (Ativan 2mg/ml 1ml) 1 mg Q4H PRN IM For Anxiety 06/25/18 12:45 07/02/18 12:28 06/25/18 20:56 Lorazepam (Ativan 2mg/ml 1ml) 1 mg Q4H PRN IV For Anxiety 06/25/18 12:45 07/02/18 12:29 06/27/18 11:03 Magnesium Hydroxide (Mom) 30 ml DAILYPRN PRN ORAL Constipation 06/23/18 17:00 07/23/18 16:59 Methadone HCl (Methadone HCl) 15 mg EVERY 8 HOURS ORAL 06/22/18 22:00 06/28/18 05:59 06/27/18 06:00 Morphine Sulfate (Morphine Sulfate) 4 mg Q4H PRN IVP For Pain 06/22/18 17:15 06/28/18 01:14 06/27/18 08:54 Nicotine (Nicoderm) 1 patch Q24H TDERMAL 06/24/18 10:00 07/24/18 09:59 06/27/18 10:07 Oxybutynin Chloride (Ditropan) 10 mg BID ORAL 06/22/18 18:00 07/22/18 08:59 06/27/18 10:08 Pantoprazole (Protonix) 40 mg EVERY 12 HOURS ORAL 06/22/18 21:00 07/21/18 20:59 06/27/18 10:08 Sodium Phosphate (Fleet's Sodium Phosl Enema) 133 ml DAILYPRN PRN RECTAL constipation 06/23/18 09:00 07/23/18 08:59 06/26/18 21:11 Tizanidine HCl (Zanaflex) 2 mg Q12H PRN ORAL spasm 06/22/18 17:00 07/21/18 16:59 06/26/18 04:19 Trazodone HCl (Desyrel) 50 mg HSPRN PRN ORAL insomia 06/22/18 21:00 07/22/18 20:59 06/22/18 21:43 Daniel Murcia MD Jun 27, 2018 13:13
--- NOTE | 2018-06-27 14:58 | General Progress Note ---
Assessment/Plan Problem List: (1) Multiple sclerosis ICD Codes: G35 - Multiple sclerosis SNOMED: 88785849 (2) Dehydration ICD Codes: E86.0 - Dehydration SNOMED: 89319128 (3) Weak ICD Codes: R53.1 - Weakness SNOMED: 41134631 Status: stable, progressing Assessment/Plan: pt diet cbc bmp am dc plan snf if all clear Subjective Constitutional: Reports: weakness Allergies: Coded Allergies: CIPROFLOXACIN (Verified Allergy, Unknown, 06/14/18) HALOPERIDOL (Verified Allergy, Unknown, 06/14/18) RISPERIDONE (Verified Allergy, Unknown, 06/14/18) SENNA (Verified Allergy, Unknown, 06/14/18) All Systems: reviewed and negative except above Subjective sleeping calm Objective Last 24 Hour Vital Signs Date Time Temp Pulse Resp B/P (MAP) Pulse Ox O2 Delivery O2 Flow Rate FiO2 06/27/18 12:00 98.4 100 18 123/80 (94) 100 06/27/18 09:00 Room Air 06/27/18 08:00 100 06/27/18 08:00 98.1 105 17 128/85 (99) 99 06/27/18 04:00 97.9 101 24 134/86 (102) 99 06/27/18 04:00 102 06/27/18 00:00 94 06/27/18 00:00 98.0 93 24 134/84 (101) 98 06/26/18 21:34 99.2 06/26/18 21:00 Room Air 06/26/18 20:00 97.9 106 24 133/81 (98) 97 06/26/18 20:00 104 06/26/18 16:00 99.2 106 20 122/77 (92) 99 06/26/18 16:00 108 Intake and Output 06/26/18 06/27/18 19:00 07:00 Intake Total 760 ml 1200 ml Output Total 1300 ml 3100 ml Balance -540 ml -1900 ml Intake Oral 760 ml Other 1200 ml Output Urine Total 1300 ml 3100 ml Laboratory Tests 06/27/18 08:05: Sodium Level 136, Potassium Level 3.9, Chloride Level 102, Carbon Dioxide Level 24, Anion Gap 10, Blood Urea Nitrogen 17, Creatinine 0.5L, Estimat Glomerular Filtration Rate > 60, Glucose Level 214#H, Uric Acid 5.8, Calcium Level 8.4L, Phosphorus Level 3.9, Magnesium Level 1.7L, Total Bilirubin 0.2, Aspartate Amino Transf (AST/SGOT) 19, Alanine Aminotransferase (ALT/SGPT) 47, Alkaline Phosphatase 62, Total Protein 7.3, Albumin 2.8L, Globulin 4.5, Albumin/Globulin Ratio 0.6L, Triglycerides Level 269H Height (Feet): 5 Height (Inches): 4.00 Weight (Pounds): 205 General Appearance: lethargic EENT: normal ENT inspection Neck: normal alignment Cardiovascular: normal peripheral pulses, normal rate, regular rhythm Respiratory/Chest: chest wall non-tender, lungs clear, normal breath sounds Abdomen: normal bowel sounds, non tender, soft Extremities: normal inspection Edema: no edema noted Arm (L), no edema noted Arm (R), no edema noted Leg (L), no edema noted Leg (R), no edema noted Pedal (L), no edema noted Pedal (R), no edema noted Generalized Neurologic: motor weakness Skin: normal pigmentation, warm/dry Srini Cox DO Jun 27, 2018 14:58
--- NOTE | 2018-06-27 15:14 | Nephrology Progress Note ---
Assessment/Plan Problem List: (1) Hyponatremia (2) Diabetes mellitus Assessment: OOC (3) Sepsis (4) Paraplegia (5) High blood triglycerides Assessment high K , due to hemolysis HypoNatremia due to High Glucose / hyperglycemia Uncontrolled Dm UTI ? Sepsis ? suprepubic cath, High lactic level Spina bifida / Paraplegia Limited mobility MS Plan PO Mag Oxide BS control Urine culture 3% saline as needed tricor for high Trigs Monitor lytes per orders urine cultures Subjective ROS Limited/Unobtainable: No Constitutional: Reports: malaise Objective Objective Last 24 Hour Vital Signs Date Time Temp Pulse Resp B/P (MAP) Pulse Ox O2 Delivery O2 Flow Rate FiO2 06/27/18 12:00 98.4 100 18 123/80 (94) 100 06/27/18 09:00 Room Air 06/27/18 08:00 100 06/27/18 08:00 98.1 105 17 128/85 (99) 99 06/27/18 04:00 97.9 101 24 134/86 (102) 99 06/27/18 04:00 102 06/27/18 00:00 94 06/27/18 00:00 98.0 93 24 134/84 (101) 98 06/26/18 21:34 99.2 06/26/18 21:00 Room Air 06/26/18 20:00 97.9 106 24 133/81 (98) 97 06/26/18 20:00 104 06/26/18 16:00 99.2 106 20 122/77 (92) 99 06/26/18 16:00 108 Intake and Output 06/26/18 06/27/18 18:59 06:59 Intake Total 760 ml 1200 ml Output Total 1300 ml 3100 ml Balance -540 ml -1900 ml Intake Oral 760 ml Other 1200 ml Output Urine Total 1300 ml 3100 ml Laboratory Tests 06/27/18 08:05: Sodium Level 136, Potassium Level 3.9, Chloride Level 102, Carbon Dioxide Level 24, Anion Gap 10, Blood Urea Nitrogen 17, Creatinine 0.5L, Estimat Glomerular Filtration Rate > 60, Glucose Level 214#H, Uric Acid 5.8, Calcium Level 8.4L, Phosphorus Level 3.9, Magnesium Level 1.7L, Total Bilirubin 0.2, Aspartate Amino Transf (AST/SGOT) 19, Alanine Aminotransferase (ALT/SGPT) 47, Alkaline Phosphatase 62, Total Protein 7.3, Albumin 2.8L, Globulin 4.5, Albumin/Globulin Ratio 0.6L, Triglycerides Level 269H Height (Feet): 5 Height (Inches): 4.00 Weight (Pounds): 205 Objective no change Elvin Robles MD Jun 27, 2018 15:14
--- NOTE | 2018-06-27 16:29 | Surgery Progress Note ---
Surgery Progress Note Subjective Symptoms: improved, pain absent, tolerating diet, passing flatus, BM Objective Last 24 Hour Vital Signs Date Time Temp Pulse Resp B/P (MAP) Pulse Ox O2 Delivery O2 Flow Rate FiO2 06/27/18 16:00 98.3 99 18 125/79 (94) 100 06/27/18 12:00 110 06/27/18 12:00 98.4 100 18 123/80 (94) 100 06/27/18 09:00 Room Air 06/27/18 08:00 100 06/27/18 08:00 98.1 105 17 128/85 (99) 99 06/27/18 04:00 97.9 101 24 134/86 (102) 99 06/27/18 04:00 102 06/27/18 00:00 94 06/27/18 00:00 98.0 93 24 134/84 (101) 98 06/26/18 21:34 99.2 06/26/18 21:00 Room Air 06/26/18 20:00 97.9 106 24 133/81 (98) 97 06/26/18 20:00 104 I&O Intake and Output 06/26/18 06/27/18 18:59 06:59 Intake Total 760 ml 1200 ml Output Total 1300 ml 3100 ml Balance -540 ml -1900 ml Intake Oral 760 ml Other 1200 ml Output Urine Total 1300 ml 3100 ml Drains: none Cardiovascular: RSR Respiratory: clear Abdomen: soft, distended, non-tender, present bowel sounds Extremities: no tenderness, no cyanosis Laboratory Tests Test 06/27/18 08:05 Sodium Level 136 MMOL/L (136-145) Potassium Level 3.9 MMOL/L (3.5-5.1) Chloride Level 102 MMOL/L (98-107) Carbon Dioxide Level 24 MMOL/L (21-32) Anion Gap 10 mmol/L (5-15) Blood Urea Nitrogen 17 mg/dL (7-18) Creatinine 0.5 MG/DL (0.55-1.30) L Estimat Glomerular Filtration Rate > 60 mL/min (>60) Glucose Level 214 MG/DL (74-106) #H Uric Acid 5.8 MG/DL (2.6-7.2) Calcium Level 8.4 MG/DL (8.5-10.1) L Phosphorus Level 3.9 MG/DL (2.5-4.9) Magnesium Level 1.7 MG/DL (1.8-2.4) L Total Bilirubin 0.2 MG/DL (0.2-1.0) Aspartate Amino Transf (AST/SGOT) 19 U/L (15-37) Alanine Aminotransferase (ALT/SGPT) 47 U/L (12-78) Alkaline Phosphatase 62 U/L (46-116) Total Protein 7.3 G/DL (6.4-8.2) Albumin 2.8 G/DL (3.4-5.0) L Globulin 4.5 g/dL Albumin/Globulin Ratio 0.6 (1.0-2.7) L Triglycerides Level 269 MG/DL (30-150) H Plan Problems: (1) Abnormal urogenital findings (2) Paraplegia (3) Spina bifida (4) Diabetes mellitus Assessment & Plan: DAILY ESTIMATED NEEDS: Needs based on Quadriplegia, wound 65.5kg adj 23-28 kcals/kg 6217-0833 total kcals 1.25-1.5 g protein/kg 82-98 g total protein 25-30 mL/kg 6901-7121 total fluid mLs NUTRITION DIAGNOSIS: 1) Increased protein needs r/t wound healing and h/o quadriplegia as evidenced by pt w/ h/o stage 3 ischial wound and resolving sacral wound. 2) Altered nutrition related lab values r/t diabetes as evidenced by elev BG (633, 395) and elev POC, Uglu 4+ on adm. CURRENT DIET:[facility] MED PO DIET RECOMMENDATIONS: DIET CHANGE-> -> [facility] LOW W/ DOUBLE PROTEIN PORTIONS ADDITIONAL RECOMMENDATIONS: 1) Wound care: add JIM BID + VIT C 250mg BID + MVI x1 daily 2) Check A1C 3) RE-calibrate bed scale for accurate CWB 4) F/up w/ WC eval (5) Limited mobility in bed (6) Sepsis (7) Uncontrolled diabetes mellitus (8) Abdominal distension Assessment & Plan: stable as compared to prior exam continue with bowel regimen KUB noted will follow with serial exam and recs d/c planning okay to discharge from surgical standpoint thank you (9) Decubitus skin ulcer Assessment & Plan: Pt presented on admission with multiple partial thickness pressure injuries secondary to shearing R,L Buttocks ,Scrotum and both ischial regions. Moisture related intertrigo noted to L groin and abd panus.All affected areas cleansed with Soap and water .Triad Paste applied to affected areas including pressure areas on buttocks and both ischail areas. Tx.plan: Apply Triad paste to abd fols, Both groin,Scrotum and Buttocks with each perineal care. Reposition At least every 2hours or as tolerated. Off-Load heels with Pillow. (10) Intractable back pain Endy De La Rosa Jun 27, 2018 16:29
--- NOTE | 2018-06-27 17:23 | General Progress Note ---
Assessment/Plan Problem List: (1) Uncontrolled diabetes mellitus ICD Codes: E11.65 - Type 2 diabetes mellitus with hyperglycemia SNOMED: 93701505, 182000641 (2) Paraplegia ICD Codes: G82.20 - Paraplegia, unspecified SNOMED: 99682383 (3) Spina bifida ICD Codes: Q05.9 - Spina bifida, unspecified SNOMED: 92376476 Status: stable, progressing Assessment/Plan: increase Levemir to 40 units bid increase Novolog to 23 units tid add Metformin 850 mg tid continue NISS ac / hs Subjective Allergies: Coded Allergies: CIPROFLOXACIN (Verified Allergy, Unknown, 06/14/18) HALOPERIDOL (Verified Allergy, Unknown, 06/14/18) RISPERIDONE (Verified Allergy, Unknown, 06/14/18) SENNA (Verified Allergy, Unknown, 06/14/18) All Systems: reviewed and negative except above Subjective events noted glucose values are elevated Item Value Date Time Bedside Blood Glucose 379 mg/dl H 06/27/18 1241 Bedside Blood Glucose 325 mg/dl H 06/27/18 1030 Bedside Blood Glucose 241 mg/dl H 06/27/18 0609 Objective Last 24 Hour Vital Signs Date Time Temp Pulse Resp B/P (MAP) Pulse Ox O2 Delivery O2 Flow Rate FiO2 06/27/18 16:00 98.3 99 18 125/79 (94) 100 06/27/18 12:00 110 06/27/18 12:00 98.4 100 18 123/80 (94) 100 06/27/18 09:00 Room Air 06/27/18 08:00 100 06/27/18 08:00 98.1 105 17 128/85 (99) 99 06/27/18 04:00 97.9 101 24 134/86 (102) 99 06/27/18 04:00 102 06/27/18 00:00 94 06/27/18 00:00 98.0 93 24 134/84 (101) 98 06/26/18 21:34 99.2 06/26/18 21:00 Room Air 06/26/18 20:00 97.9 106 24 133/81 (98) 97 06/26/18 20:00 104 Intake and Output 06/26/18 06/27/18 18:59 06:59 Intake Total 760 ml 1200 ml Output Total 1300 ml 3100 ml Balance -540 ml -1900 ml Intake Oral 760 ml Other 1200 ml Output Urine Total 1300 ml 3100 ml Laboratory Tests 06/27/18 08:05: Sodium Level 136, Potassium Level 3.9, Chloride Level 102, Carbon Dioxide Level 24, Anion Gap 10, Blood Urea Nitrogen 17, Creatinine 0.5L, Estimat Glomerular Filtration Rate > 60, Glucose Level 214#H, Uric Acid 5.8, Calcium Level 8.4L, Phosphorus Level 3.9, Magnesium Level 1.7L, Total Bilirubin 0.2, Aspartate Amino Transf (AST/SGOT) 19, Alanine Aminotransferase (ALT/SGPT) 47, Alkaline Phosphatase 62, Total Protein 7.3, Albumin 2.8L, Globulin 4.5, Albumin/Globulin Ratio 0.6L, Triglycerides Level 269H Height (Feet): 5 Height (Inches): 4.00 Weight (Pounds): 205 General Appearance: no apparent distress Neck: normal alignment Cardiovascular: normal rate Respiratory/Chest: lungs clear Objective Current Medications Medications (Trade) Dose Ordered Sig/Trevin Route PRN Reason Start Time Stop Time Status Last Admin Dose Admin Aripiprazole (Abilify) 10 mg DAILY ORAL 06/25/18 12:15 07/25/18 12:14 06/25/18 14:04 Chlorhexidine Gluconate (Becca-Hex 2%) 1 applic DAILY@1999 TOPIC 06/25/18 20:00 07/25/18 19:59 06/26/18 20:27 Dextrose (Dextrose 50%) 25 ml Q30M PRN IV Hypoglycemia 06/22/18 16:45 07/21/18 06:44 Dextrose (Dextrose 50%) 50 ml Q30M PRN IV Hypoglycemia 06/22/18 16:45 07/21/18 06:44 Divalproex Sodium (Depakote) 500 mg BEDTIME ORAL 06/25/18 21:00 07/25/18 20:59 06/25/18 20:55 Docusate Sodium (Colace) 100 mg TID ORAL 06/22/18 18:00 07/21/18 08:59 06/27/18 17:15 Fenofibrate (Tricor) 145 mg DAILY ORAL 06/23/18 09:00 07/22/18 14:29 06/25/18 08:38 Gabapentin (Neurontin) 100 mg BID ORAL 06/22/18 18:00 07/21/18 08:59 06/27/18 17:15 Heparin Sodium (Porcine) (Heparin 5000 units/ml) 5,000 units EVERY 12 HOURS SUBQ 06/22/18 21:00 07/21/18 08:59 06/27/18 10:09 Hydromorphone HCl (Dilaudid) 4 mg Q4H PRN ORAL pain 7-10 06/22/18 17:00 06/28/18 16:59 06/25/18 03:14 Insulin Aspart (NovoLOG) BEFORE MEALS AND HS SUBQ 06/22/18 16:30 07/21/18 06:29 06/27/18 12:41 Insulin Aspart (NovoLOG) 20 units NOVOTIAC SUBQ 06/26/18 06:45 07/21/18 06:44 06/27/18 11:50 Insulin Detemir (Levemir) 35 units BID SUBQ 06/26/18 09:00 07/21/18 08:59 06/27/18 10:30 Lactulose (Cephulac) 30 gm THREE TIMES A DAY ORAL 06/22/18 18:00 07/21/18 08:59 06/27/18 17:14 Lorazepam (Ativan 2mg/ml 1ml) 1 mg Q4H PRN IM For Anxiety 06/25/18 12:45 07/02/18 12:28 06/25/18 20:56 Lorazepam (Ativan 2mg/ml 1ml) 1 mg Q4H PRN IV For Anxiety 06/25/18 12:45 07/02/18 12:29 06/27/18 11:03 Magnesium Hydroxide (Mom) 30 ml DAILYPRN PRN ORAL Constipation 06/23/18 17:00 07/23/18 16:59 Magnesium Oxide (Mag-Ox 400mg) 400 mg THREE TIMES A DAY ORAL 06/27/18 18:00 07/27/18 17:59 06/27/18 17:14 Methadone HCl (Methadone HCl) 15 mg EVERY 8 HOURS ORAL 06/22/18 22:00 06/28/18 05:59 06/27/18 13:58 Morphine Sulfate (Morphine Sulfate) 4 mg Q4H PRN IVP For Pain 06/22/18 17:15 06/28/18 01:14 06/27/18 13:33 Nicotine (Nicoderm) 1 patch Q24H TDERMAL 06/24/18 10:00 07/24/18 09:59 06/27/18 10:07 Oxybutynin Chloride (Ditropan) 10 mg BID ORAL 06/22/18 18:00 07/22/18 08:59 06/27/18 17:15 Pantoprazole (Protonix) 40 mg EVERY 12 HOURS ORAL 06/22/18 21:00 07/21/18 20:59 06/27/18 10:08 Sodium Phosphate (Fleet's Sodium Phosl Enema) 133 ml DAILYPRN PRN RECTAL constipation 06/23/18 09:00 07/23/18 08:59 06/26/18 21:11 Tizanidine HCl (Zanaflex) 2 mg Q12H PRN ORAL spasm 06/22/18 17:00 07/21/18 16:59 06/26/18 04:19 Trazodone HCl (Desyrel) 50 mg HSPRN PRN ORAL insomia 06/22/18 21:00 07/22/18 20:59 06/22/18 21:43 Arden oRssi MD Jun 27, 2018 17:23
[2018-06-27] MEDS ORDERED: Levemir Flexpen SUBQ SCH (18:00)
[2018-06-27] MEDS ORDERED: Magnesium Oxide 400mg tab ORAL SCH (18:00)
[2018-06-27] MEDS: Fleet's Enema 133ml RECTAL PRN (18:32)
[2018-06-27] MEDS ORDERED: Milk of Magnesia 30ml Ud ORAL PRN (18:45)
[2018-06-27] MEDS: TraZODone 50mg tab ORAL PRN (20:31)
[2018-06-27] MEDS: Depakote 500mg tab ORAL SCH (20:35)
[2018-06-27] MEDS ORDERED: NovoLOG Insulin Flexpen SUBQ SCH ×2 (21:00)
[2018-06-27] MEDS ORDERED: Morphine Sulfate 4mg/ml Inj (IV USE ONLY) IVP PRN (21:15)
--- NOTE | 2018-06-27 21:37 | Psych Consult Progress Note ---
Psychiatry Progress Note Psychiatry Progress Note Subjective the pt has behavioral issues. the pt is easily agitated. the pt is yelling. the pt is demanding and has poor insight. abusive towards the staff. Medications Current Medications Medications (Trade) Dose Ordered Sig/Trevin Route PRN Reason Start Time Stop Time Status Last Admin Dose Admin Aripiprazole (Abilify) 10 mg DAILY ORAL 06/28/18 09:00 07/25/18 12:14 Dextrose (Dextrose 50%) 25 ml Q30M PRN IV Hypoglycemia 06/27/18 18:45 07/21/18 06:44 Dextrose (Dextrose 50%) 50 ml Q30M PRN IV Hypoglycemia 06/27/18 18:45 07/21/18 06:44 Divalproex Sodium (Depakote) 500 mg BEDTIME ORAL 06/27/18 21:00 07/25/18 20:59 Docusate Sodium (Colace) 100 mg DAILY ORAL 06/28/18 09:00 07/28/18 08:59 Fenofibrate (Tricor) 145 mg DAILY ORAL 06/28/18 09:00 07/22/18 14:29 Gabapentin (Neurontin) 100 mg BID ORAL 06/28/18 09:00 07/21/18 08:59 Heparin Sodium (Porcine) (Heparin 5000 units/ml) 5,000 units EVERY 12 HOURS SUBQ 06/27/18 21:00 07/21/18 08:59 06/27/18 20:33 Hydromorphone HCl (Dilaudid) 4 mg Q4H PRN ORAL pain 7-10 06/27/18 19:00 06/28/18 18:59 Insulin Aspart (NovoLOG) BEFORE MEALS AND HS SUBQ 06/27/18 21:00 07/27/18 20:59 Insulin Aspart (NovoLOG) 23 units NOVOTIAC SUBQ 06/28/18 06:30 07/21/18 06:44 Insulin Detemir (Levemir) 40 units BID SUBQ 06/28/18 09:00 07/21/18 08:59 Lactulose (Cephulac) 30 gm THREE TIMES A DAY ORAL 06/28/18 09:00 07/21/18 08:59 Lorazepam (Ativan 2mg/ml 1ml) 1 mg Q4H PRN IM For Anxiety 06/27/18 19:00 07/02/18 18:59 Lorazepam (Ativan 2mg/ml 1ml) 1 mg Q4H PRN IV For Anxiety 06/27/18 19:00 07/02/18 18:59 06/27/18 20:31 Magnesium Hydroxide (Mom) 30 ml 3XW PRN ORAL Constipation 06/27/18 18:45 07/27/18 18:44 Magnesium Oxide (Mag-Ox 400mg) 400 mg THREE TIMES A DAY ORAL 06/28/18 09:00 07/27/18 17:59 Metformin HCl (Glucophage) 500 mg TID ORAL 06/28/18 09:00 07/28/18 08:59 Methadone HCl (Methadone HCl) 15 mg EVERY 8 HOURS ORAL 06/27/18 22:00 06/28/18 05:59 Morphine Sulfate (Morphine Sulfate) 4 mg Q4H PRN IVP For Pain 06/27/18 21:15 06/28/18 01:14 Nicotine (Nicoderm) 1 patch Q24H TDERMAL 06/28/18 10:00 07/24/18 09:59 Oxybutynin Chloride (Ditropan) 10 mg BID ORAL 06/28/18 09:00 07/22/18 08:59 Pantoprazole (Protonix) 40 mg EVERY 12 HOURS ORAL 06/27/18 21:00 07/21/18 20:59 06/27/18 20:31 Sodium Phosphate (Fleet's Sodium Phosl Enema) 133 ml QOD PRN RECTAL Constipation 06/27/18 18:45 07/27/18 18:44 Tizanidine HCl (Zanaflex) 2 mg Q12H PRN ORAL spasm 06/27/18 19:00 07/27/18 18:59 Trazodone HCl (Desyrel) 50 mg HSPRN PRN ORAL insomia 06/27/18 21:00 07/22/18 20:59 06/27/18 20:31 Neurological/Psychiatric: Reports: anxiety, depressed, emotional problems Allergies: Coded Allergies: CIPROFLOXACIN (Verified Allergy, Unknown, 06/14/18) HALOPERIDOL (Verified Allergy, Unknown, 06/14/18) RISPERIDONE (Verified Allergy, Unknown, 06/14/18) SENNA (Verified Allergy, Unknown, 06/14/18) Objective Data Height (Feet): 5 Height (Inches): 4.00 Weight (Pounds): 205 General Appearance: WD/WN, alert, moderate distress, agitated Appearance: disheveled Behavior Mannerisms: good eye contact Mental Status Exam - Affect: blunted Mental Status Exam - Mood: angry, agitated Mental Status Exam - Thought P: goal-directed Mental Status Exam - Thought C: no abnormalities Mental Status Exam - Suicidal: no plan Assessment/Plan Problem List: (1) MDD (major depressive disorder), recurrent episode, moderate ICD Codes: F33.1 - Major depressive disorder, recurrent, moderate SNOMED: 40628951, 532725864 Status: stable, progressing Assessment/Plan: Abilify 10mg po qam ativan prn provided ro/Grisel Burton MD Jun 27, 2018 21:37
[2018-06-28] VITALS: BP 105/72
[2018-06-28] MEDS: HYDROmorphone 4mg tab ORAL PRN ×4 (02:36→18:32)
[2018-06-28 04:00] VITALS: BP 129/81
[2018-06-28] MEDS: LORazepam Inj 2mg/ml 1ml IV PRN ×4 (04:27→20:45)
[2018-06-28] MEDS: NovoLOG Insulin Flexpen SUBQ SCH ×7 (06:21→21:00)
[2018-06-28] MEDS ORDERED: NovoLOG Insulin Flexpen SUBQ SCH (06:30)
--- NOTE | 2018-06-28 06:33 | General Progress Note ---
Assessment/Plan Problem List: (1) Uncontrolled diabetes mellitus ICD Codes: E11.65 - Type 2 diabetes mellitus with hyperglycemia SNOMED: 62525614, 852506616 (2) Paraplegia ICD Codes: G82.20 - Paraplegia, unspecified SNOMED: 21171086 (3) Spina bifida ICD Codes: Q05.9 - Spina bifida, unspecified SNOMED: 63494701 Status: stable, progressing Assessment/Plan: continue Levemir 40 units bid continue Novolog 23 units tid continue Metformin 850 mg tid continue NISS ac / hs Subjective Allergies: Coded Allergies: CIPROFLOXACIN (Verified Allergy, Unknown, 06/14/18) HALOPERIDOL (Verified Allergy, Unknown, 06/14/18) RISPERIDONE (Verified Allergy, Unknown, 06/14/18) SENNA (Verified Allergy, Unknown, 06/14/18) All Systems: reviewed and negative except above Subjective events noted Item Value Date Time Bedside Blood Glucose 201 mg/dl H 06/28/18 0622 Bedside Blood Glucose 282 mg/dl H 06/27/18 2138 Bedside Blood Glucose 281 mg/dl H 06/27/18 1800 Bedside Blood Glucose 379 mg/dl H 06/27/18 1241 Bedside Blood Glucose 325 mg/dl H 06/27/18 1030 Bedside Blood Glucose 241 mg/dl H 06/27/18 0609 Objective Last 24 Hour Vital Signs Date Time Temp Pulse Resp B/P (MAP) Pulse Ox O2 Delivery O2 Flow Rate FiO2 06/28/18 04:00 97.8 99 18 129/81 (97) 98 06/28/18 00:00 97.7 90 19 105/72 (83) 98 06/27/18 21:00 Room Air 06/27/18 20:00 98.6 100 19 144/86 (105) 98 06/27/18 18:00 98.8 108 19 130/98 (109) 97 06/27/18 16:00 98.3 99 18 125/79 (94) 100 06/27/18 12:00 110 06/27/18 12:00 98.4 100 18 123/80 (94) 100 06/27/18 09:00 Room Air 06/27/18 08:00 100 06/27/18 08:00 98.1 105 17 128/85 (99) 99 Intake and Output 06/27/18 06/28/18 18:59 06:59 Intake Total 1500 ml Output Total 900 ml 1900 ml Balance 600 ml -1900 ml Intake Oral 1500 ml Output Urine Total 900 ml 1900 ml # Bowel Movements 1 Laboratory Tests 06/27/18 08:05: Sodium Level 136, Potassium Level 3.9, Chloride Level 102, Carbon Dioxide Level 24, Anion Gap 10, Blood Urea Nitrogen 17, Creatinine 0.5L, Estimat Glomerular Filtration Rate > 60, Glucose Level 214#H, Uric Acid 5.8, Calcium Level 8.4L, Phosphorus Level 3.9, Magnesium Level 1.7L, Total Bilirubin 0.2, Aspartate Amino Transf (AST/SGOT) 19, Alanine Aminotransferase (ALT/SGPT) 47, Alkaline Phosphatase 62, Total Protein 7.3, Albumin 2.8L, Globulin 4.5, Albumin/Globulin Ratio 0.6L, Triglycerides Level 269H Height (Feet): 5 Height (Inches): 4.00 Weight (Pounds): 205 General Appearance: no apparent distress Neck: normal alignment Cardiovascular: normal rate Respiratory/Chest: lungs clear Abdomen: normal bowel sounds Objective Current Medications Medications (Trade) Dose Ordered Sig/Trevin Route PRN Reason Start Time Stop Time Status Last Admin Dose Admin Aripiprazole (Abilify) 10 mg DAILY ORAL 06/28/18 09:00 07/25/18 12:14 Dextrose (Dextrose 50%) 25 ml Q30M PRN IV Hypoglycemia 06/27/18 18:45 07/21/18 06:44 Dextrose (Dextrose 50%) 50 ml Q30M PRN IV Hypoglycemia 06/27/18 18:45 07/21/18 06:44 Divalproex Sodium (Depakote) 500 mg BEDTIME ORAL 06/27/18 21:00 07/25/18 20:59 Docusate Sodium (Colace) 100 mg DAILY ORAL 06/28/18 09:00 07/28/18 08:59 Fenofibrate (Tricor) 145 mg DAILY ORAL 06/28/18 09:00 07/22/18 14:29 Gabapentin (Neurontin) 100 mg BID ORAL 06/28/18 09:00 07/21/18 08:59 Heparin Sodium (Porcine) (Heparin 5000 units/ml) 5,000 units EVERY 12 HOURS SUBQ 06/27/18 21:00 07/21/18 08:59 06/27/18 20:33 Hydromorphone HCl (Dilaudid) 4 mg Q4H PRN ORAL pain 7-10 06/27/18 19:00 06/28/18 18:59 06/28/18 02:36 Insulin Aspart (NovoLOG) BEFORE MEALS AND HS SUBQ 06/27/18 21:00 07/27/18 20:59 06/28/18 06:22 Insulin Aspart (NovoLOG) 23 units NOVOTIAC SUBQ 06/28/18 06:30 07/21/18 06:44 06/28/18 06:21 Insulin Detemir (Levemir) 40 units BID SUBQ 06/28/18 09:00 07/21/18 08:59 Lactulose (Cephulac) 30 gm THREE TIMES A DAY ORAL 06/28/18 09:00 07/21/18 08:59 Lorazepam (Ativan 2mg/ml 1ml) 1 mg Q4H PRN IM For Anxiety 06/27/18 19:00 07/02/18 18:59 Lorazepam (Ativan 2mg/ml 1ml) 1 mg Q4H PRN IV For Anxiety 06/27/18 19:00 07/02/18 18:59 06/28/18 04:27 Magnesium Hydroxide (Mom) 30 ml 3XW PRN ORAL Constipation 06/27/18 18:45 07/27/18 18:44 Magnesium Oxide (Mag-Ox 400mg) 400 mg THREE TIMES A DAY ORAL 06/28/18 09:00 07/27/18 17:59 Metformin HCl (Glucophage) 500 mg TID ORAL 06/28/18 09:00 07/28/18 08:59 Nicotine (Nicoderm) 1 patch Q24H TDERMAL 06/28/18 10:00 07/24/18 09:59 Oxybutynin Chloride (Ditropan) 10 mg BID ORAL 06/28/18 09:00 07/22/18 08:59 Pantoprazole (Protonix) 40 mg EVERY 12 HOURS ORAL 06/27/18 21:00 07/21/18 20:59 06/27/18 20:31 Sodium Phosphate (Fleet's Sodium Phosl Enema) 133 ml QOD PRN RECTAL Constipation 06/27/18 18:45 07/27/18 18:44 Tizanidine HCl (Zanaflex) 2 mg Q12H PRN ORAL spasm 06/27/18 19:00 07/27/18 18:59 Trazodone HCl (Desyrel) 50 mg HSPRN PRN ORAL insomia 06/27/18 21:00 07/22/18 20:59 06/27/18 20:31 Arden Rossi MD Jun 28, 2018 06:33
[2018-06-28 07:37] LABS: BASOPHILS % (AUTO) 1.1 % (0.0-2.0); EOSINOPHILS % (AUTO) 2.8 % (0.0-3.0); HEMATOCRIT 38.4 % (42.0-52.0); HEMOGLOBIN 12.2 G/DL (14.2-18.0); LYMPHOCYTES % (AUTO) 43.7 % (20.0-45.0); MEAN CORPUSCULAR VOLUME 88 FL (80-99); MONOCYTES % (AUTO) 6.8 % (1.0-10.0); NEUTROPHILS % (AUTO) 45.6 % (45.0-75.0); PLATELET COUNT 222 K/UL (150-450); RED BLOOD COUNT 4.39 M/UL (4.70-6.10); RED CELL DISTRIBUTION WIDTH 15.6 % (11.6-14.8); WHITE BLOOD COUNT 5.5 K/UL (4.8-10.8)
[2018-06-28 07:41] LABS: ANION GAP 13 mmol/L (5-15); BLOOD UREA NITROGEN 16 mg/dL (7-18); CALCIUM 8.6 MG/DL (8.5-10.1); CARBON DIOXIDE 21 MMOL/L (21-32); CHLORIDE 102 MMOL/L (98-107); CREATININE 0.5 MG/DL (0.55-1.30); POTASSIUM 4.1 MMOL/L (3.5-5.1); SODIUM 136 MMOL/L (136-145)
[2018-06-28 08:12] VITALS: BP 125/78
[2018-06-28] MEDS: Lactulose 20gm/30ml UDC ORAL SCH ×3 (09:00→18:00)
[2018-06-28] MEDS ORDERED: ARIPiprazole 10mg tab ORAL SCH (09:00)
[2018-06-28] MEDS ORDERED: Fleet's Enema 133ml RECTAL PRN (09:00)
[2018-06-28] MEDS ORDERED: Docusate 100mg cap ORAL SCH (09:00)
[2018-06-28] MEDS: metFORMIN 500mg tab ORAL SCH ×3 (09:34→18:00)
[2018-06-28] MEDS: Docusate 100mg cap ORAL SCH (09:34)
[2018-06-28] MEDS: Levemir Flexpen SUBQ SCH ×2 (09:37→19:07)
[2018-06-28] MEDS: Heparin 5000 units/ml inj SUBQ SCH ×2 (09:38→21:00)
[2018-06-28] MEDS: Magnesium Oxide 400mg tab ORAL SCH ×3 (09:41→18:00)
[2018-06-28] MEDS: Oxybutynin 5mg tab ORAL SCH ×2 (09:45→18:00)
[2018-06-28 12:00] VITALS: BP 130/71
--- NOTE | 2018-06-28 12:08 | Psych Consult Progress Note ---
Psychiatry Progress Note Psychiatry Progress Note Subjective the pts mental status is unchanged. the pt cont to be abusive and easily agitated the pt has poor insight the pt yelling through out the day. Medications Current Medications Medications (Trade) Dose Ordered Sig/Trevin Route PRN Reason Start Time Stop Time Status Last Admin Dose Admin Aripiprazole (Abilify) 20 mg DAILY ORAL 06/29/18 09:00 07/29/18 08:59 Dextrose (Dextrose 50%) 25 ml Q30M PRN IV Hypoglycemia 06/27/18 18:45 07/21/18 06:44 Dextrose (Dextrose 50%) 50 ml Q30M PRN IV Hypoglycemia 06/27/18 18:45 07/21/18 06:44 Divalproex Sodium (Depakote) 500 mg BEDTIME ORAL 06/27/18 21:00 07/25/18 20:59 Docusate Sodium (Colace) 100 mg DAILY ORAL 06/28/18 09:00 07/28/18 08:59 06/28/18 09:34 Fenofibrate (Tricor) 145 mg DAILY ORAL 06/28/18 09:00 07/22/18 14:29 06/28/18 09:35 Gabapentin (Neurontin) 100 mg BID ORAL 06/28/18 09:00 07/21/18 08:59 06/28/18 09:35 Heparin Sodium (Porcine) (Heparin 5000 units/ml) 5,000 units EVERY 12 HOURS SUBQ 06/27/18 21:00 07/21/18 08:59 06/28/18 09:38 Hydromorphone HCl (Dilaudid) 4 mg Q4H PRN ORAL pain 7-10 06/27/18 19:00 06/28/18 18:59 06/28/18 08:14 Insulin Aspart (NovoLOG) BEFORE MEALS AND HS SUBQ 06/27/18 21:00 07/27/18 20:59 06/28/18 06:22 Insulin Aspart (NovoLOG) 23 units NOVOTIAC SUBQ 06/28/18 06:30 07/21/18 06:44 06/28/18 06:21 Insulin Detemir (Levemir) 40 units BID SUBQ 06/28/18 09:00 07/21/18 08:59 06/28/18 09:37 Lactulose (Cephulac) 30 gm THREE TIMES A DAY ORAL 4/25/19 09:00 07/21/18 08:59 Lamotrigine (LaMICtal) 50 mg DAILY ORAL 06/29/18 09:00 07/29/18 08:59 UNV Lorazepam (Ativan 2mg/ml 1ml) 1 mg Q4H PRN IM For Anxiety 06/27/18 19:00 07/02/18 18:59 Lorazepam (Ativan 2mg/ml 1ml) 1 mg Q4H PRN IV For Anxiety 06/27/18 19:00 07/02/18 18:59 06/28/18 10:26 Magnesium Hydroxide (Mom) 30 ml 3XW PRN ORAL Constipation 06/27/18 18:45 07/27/18 18:44 Magnesium Oxide (Mag-Ox 400mg) 400 mg THREE TIMES A DAY ORAL 06/28/18 09:00 07/27/18 17:59 06/28/18 09:41 Metformin HCl (Glucophage) 500 mg TID ORAL 06/28/18 09:00 07/28/18 08:59 06/28/18 09:34 Nicotine (Nicoderm) 1 patch Q24H TDERMAL 06/28/18 10:00 07/24/18 09:59 06/28/18 09:39 Oxybutynin Chloride (Ditropan) 10 mg BID ORAL 06/28/18 09:00 07/22/18 08:59 06/28/18 09:45 Pantoprazole (Protonix) 40 mg EVERY 12 HOURS ORAL 06/27/18 21:00 07/21/18 20:59 06/28/18 09:42 Sodium Phosphate (Fleet's Sodium Phosl Enema) 133 ml QOD PRN RECTAL Constipation 06/27/18 18:45 07/27/18 18:44 Tizanidine HCl (Zanaflex) 2 mg Q12H PRN ORAL spasm 06/27/18 19:00 07/27/18 18:59 Trazodone HCl (Desyrel) 50 mg HSPRN PRN ORAL insomia 06/27/18 21:00 07/22/18 20:59 06/27/18 20:31 Allergies: Coded Allergies: CIPROFLOXACIN (Verified Allergy, Unknown, 06/14/18) HALOPERIDOL (Verified Allergy, Unknown, 06/14/18) RISPERIDONE (Verified Allergy, Unknown, 06/14/18) SENNA (Verified Allergy, Unknown, 06/14/18) Objective Data Height (Feet): 5 Height (Inches): 4.00 Weight (Pounds): 205 General Appearance: WD/WN, alert, moderate distress, agitated Appearance: disheveled Behavior Mannerisms: good eye contact Mental Status Exam - Affect: blunted Mental Status Exam - Mood: irritable, anxious, agitated Mental Status Exam - Thought P: no abnormalities Mental Status Exam - Suicidal: not present Assessment/Plan Problem List: (1) MDD (major depressive disorder), recurrent episode, moderate ICD Codes: F33.1 - Major depressive disorder, recurrent, moderate SNOMED: [id number], [id number] Status: stable, progressing Assessment/Plan: Abilify 10mg po qam ativan prn provided ro/Grisel Burton MD Jun 28, 2018 12:08
--- NOTE | 2018-06-28 12:31 | Infectious Diseases Prog Note ---
Assessment/Plan Assessment/Plan IMPRESSION: 1. Positive blood culture with Staph epidermidis likely contamination 2. urinary tract infection 3. schizophrenia, noncompliance with medication, 4.diabetes mellitus, 5.chronic pain, 6.spina bifida, 7.chronic obstructive pulmonary disease, 8. s/p suprapubic catheter. 9. ESBL E. coli colonization RECOMMENDATION: Patient refuses antibiotics Observe off antibiotic Subjective ROS Limited/Unobtainable: No Respiratory: Reports: no symptoms Cardiovascular: Reports: no symptoms Gastrointestinal/Abdominal: Reports: no symptoms Psychiatric: Reports: depression Musculoskeletal: Reports: pain, other - in back, pelvis area Allergies: Coded Allergies: CIPROFLOXACIN (Verified Allergy, Unknown, 06/14/18) HALOPERIDOL (Verified Allergy, Unknown, 06/14/18) RISPERIDONE (Verified Allergy, Unknown, 06/14/18) SENNA (Verified Allergy, Unknown, 06/14/18) Objective Vital Signs Last 24 Hour Vital Signs Date Time Temp Pulse Resp B/P (MAP) Pulse Ox O2 Delivery O2 Flow Rate FiO2 06/28/18 09:00 Room Air 06/28/18 08:12 98.3 98 18 125/78 (94) 98 06/28/18 04:00 97.8 99 18 129/81 (97) 98 06/28/18 00:00 97.7 90 19 105/72 (83) 98 06/27/18 21:00 Room Air 06/27/18 20:00 98.6 100 19 144/86 (105) 98 06/27/18 18:00 98.8 108 19 130/98 (109) 97 06/27/18 16:00 98.3 99 18 125/79 (94) 100 Height (Feet): 5 Height (Inches): 4.00 Weight (Pounds): 205 General Appearance: no acute distress HEENT: mucous membranes moist Respiratory/Chest: lungs clear Cardiovascular: normal rate Abdomen: soft, non tender Skin: ulcers, other - sacral Neurologic/Psychiatric: alert, responsive Laboratory Tests Test 06/28/18 06:52 White Blood Count 5.5 K/UL (4.8-10.8) Red Blood Count 4.39 M/UL (4.70-6.10) L Hemoglobin 12.2 G/DL (14.2-18.0) L Hematocrit 38.4 % (42.0-52.0) L Mean Corpuscular Volume 88 FL (80-99) Mean Corpuscular Hemoglobin 27.8 PG (27.0-31.0) Mean Corpuscular Hemoglobin Concent 31.7 G/DL (32.0-36.0) L Red Cell Distribution Width 15.6 % (11.6-14.8) H Platelet Count 222 K/UL (150-450) Mean Platelet Volume 4.8 FL (6.5-10.1) L Neutrophils (%) (Auto) 45.6 % (45.0-75.0) Lymphocytes (%) (Auto) 43.7 % (20.0-45.0) Monocytes (%) (Auto) 6.8 % (1.0-10.0) Eosinophils (%) (Auto) 2.8 % (0.0-3.0) Basophils (%) (Auto) 1.1 % (0.0-2.0) Sodium Level 136 MMOL/L (136-145) Potassium Level 4.1 MMOL/L (3.5-5.1) Chloride Level 102 MMOL/L (98-107) Carbon Dioxide Level 21 MMOL/L (21-32) Anion Gap 13 mmol/L (5-15) Blood Urea Nitrogen 16 mg/dL (7-18) Creatinine 0.5 MG/DL (0.55-1.30) L Estimat Glomerular Filtration Rate > 60 mL/min (>60) Glucose Level 209 MG/DL (74-106) H Calcium Level 8.6 MG/DL (8.5-10.1) Current Medications Medications (Trade) Dose Ordered Sig/Trevin Route PRN Reason Start Time Stop Time Status Last Admin Dose Admin Aripiprazole (Abilify) 20 mg DAILY ORAL 06/29/18 09:00 07/29/18 08:59 Dextrose (Dextrose 50%) 25 ml Q30M PRN IV Hypoglycemia 06/27/18 18:45 07/21/18 06:44 Dextrose (Dextrose 50%) 50 ml Q30M PRN IV Hypoglycemia 06/27/18 18:45 07/21/18 06:44 Divalproex Sodium (Depakote) 500 mg BEDTIME ORAL 06/27/18 21:00 07/25/18 20:59 Docusate Sodium (Colace) 100 mg DAILY ORAL 06/28/18 09:00 07/28/18 08:59 06/28/18 09:34 Fenofibrate (Tricor) 145 mg DAILY ORAL 06/28/18 09:00 07/22/18 14:29 06/28/18 09:35 Gabapentin (Neurontin) 100 mg BID ORAL 06/28/18 09:00 07/21/18 08:59 06/28/18 09:35 Heparin Sodium (Porcine) (Heparin 5000 units/ml) 5,000 units EVERY 12 HOURS SUBQ 06/27/18 21:00 07/21/18 08:59 06/28/18 09:38 Hydromorphone HCl (Dilaudid) 4 mg Q4H PRN ORAL pain 7-10 06/27/18 19:00 06/28/18 18:59 06/28/18 08:14 Insulin Aspart (NovoLOG) BEFORE MEALS AND HS SUBQ 06/27/18 21:00 07/27/18 20:59 06/28/18 06:22 Insulin Aspart (NovoLOG) 23 units NOVOTIAC SUBQ 06/28/18 06:30 07/21/18 06:44 06/28/18 06:21 Insulin Detemir (Levemir) 40 units BID SUBQ 06/28/18 09:00 07/21/18 08:59 06/28/18 09:37 Lactulose (Cephulac) 30 gm THREE TIMES A DAY ORAL 06/28/18 09:00 07/21/18 08:59 Lamotrigine (LaMICtal) 50 mg DAILY ORAL 06/29/18 09:00 07/29/18 08:59 Lorazepam (Ativan 2mg/ml 1ml) 1 mg Q4H PRN IM For Anxiety 06/27/18 19:00 07/02/18 18:59 Lorazepam (Ativan 2mg/ml 1ml) 1 mg Q4H PRN IV For Anxiety 06/27/18 19:00 07/02/18 18:59 06/28/18 10:26 Magnesium Hydroxide (Mom) 30 ml 3XW PRN ORAL Constipation 06/27/18 18:45 07/27/18 18:44 Magnesium Oxide (Mag-Ox 400mg) 400 mg THREE TIMES A DAY ORAL 06/28/18 09:00 07/27/18 17:59 06/28/18 09:41 Metformin HCl (Glucophage) 500 mg TID ORAL 06/28/18 09:00 07/28/18 08:59 06/28/18 09:34 Nicotine (Nicoderm) 1 patch Q24H TDERMAL 06/28/18 10:00 07/24/18 09:59 06/28/18 09:39 Oxybutynin Chloride (Ditropan) 10 mg BID ORAL 06/28/18 09:00 07/22/18 08:59 06/28/18 09:45 Pantoprazole (Protonix) 40 mg EVERY 12 HOURS ORAL 06/27/18 21:00 07/21/18 20:59 06/28/18 09:42 Sodium Phosphate (Fleet's Sodium Phosl Enema) 133 ml QOD PRN RECTAL Constipation 06/27/18 18:45 07/27/18 18:44 Tizanidine HCl (Zanaflex) 2 mg Q12H PRN ORAL spasm 06/27/18 19:00 07/27/18 18:59 Trazodone HCl (Desyrel) 50 mg HSPRN PRN ORAL insomia 06/27/18 21:00 07/22/18 20:59 06/27/18 20:31 Daniel Murcia MD Jun 28, 2018 12:31
--- NOTE | 2018-06-28 13:24 | Pulmonology Progress Note ---
Assessment/Plan Problems: (1) Hyperkalemia (2) Hyponatremia (3) Sepsis (4) Uncontrolled diabetes mellitus (5) Spina bifida (6) Limited mobility in bed (7) Chronic suprapubic catheter (8) Paraplegia (9) Diabetes mellitus Assessment/Plan eating well check electrolytes iv fluids check cultures f/u ID recommendations pain management increase Methadone to 15 Q8 dvt prophylaxis. med/surg pt doesn't want to go back to [place] Subjective ROS Limited/Unobtainable: No Constitutional: Reports: no symptoms HEENT: Repors: no symptoms Respiratory: Reports: no symptoms Allergies: Coded Allergies: CIPROFLOXACIN (Verified Allergy, Unknown, 06/14/18) HALOPERIDOL (Verified Allergy, Unknown, 06/14/18) RISPERIDONE (Verified Allergy, Unknown, 06/14/18) SENNA (Verified Allergy, Unknown, 06/14/18) Objective Last 24 Hour Vital Signs Date Time Temp Pulse Resp B/P (MAP) Pulse Ox O2 Delivery O2 Flow Rate FiO2 06/28/18 09:00 Room Air 06/28/18 08:12 98.3 98 18 125/78 (94) 98 06/28/18 04:00 97.8 99 18 129/81 (97) 98 06/28/18 00:00 97.7 90 19 105/72 (83) 98 06/27/18 21:00 Room Air 06/27/18 20:00 98.6 100 19 144/86 (105) 98 06/27/18 18:00 98.8 108 19 130/98 (109) 97 06/27/18 16:00 98.3 99 18 125/79 (94) 100 Intake and Output 06/27/18 06/28/18 19:00 07:00 Intake Total 1500 ml Output Total 900 ml 1900 ml Balance 600 ml -1900 ml Intake Oral 1500 ml Output Urine Total 900 ml 1900 ml # Bowel Movements 1 General Appearance: WD/WN HEENT: normocephalic, atraumatic Respiratory/Chest: chest wall non-tender, lungs clear Cardiovascular: normal peripheral pulses, normal rate Abdomen: normal bowel sounds, soft, non tender Extremities: no cyanosis Skin: no rash Laboratory Tests 06/28/18 06:52: White Blood Count 5.5, Red Blood Count 4.39L, Hemoglobin 12.2L, Hematocrit 38.4L , Mean Corpuscular Volume 88, Mean Corpuscular Hemoglobin 27.8, Mean Corpuscular Hemoglobin Concent 31.7L, Red Cell Distribution Width 15.6H, Platelet Count 222, Mean Platelet Volume 4.8L, Neutrophils (%) (Auto) 45.6, Lymphocytes (%) (Auto) 43.7, Monocytes (%) (Auto) 6.8, Eosinophils (%) (Auto) 2.8, Basophils (%) (Auto) 1.1, Sodium Level 136, Potassium Level 4.1, Chloride Level 102, Carbon Dioxide Level 21, Anion Gap 13, Blood Urea Nitrogen 16, Creatinine 0.5L, Estimat Glomerular Filtration Rate > 60, Glucose Level 209H, Calcium Level 8.6 Current Medications Medications (Trade) Dose Ordered Sig/Trevin Route PRN Reason Start Time Stop Time Status Last Admin Dose Admin Aripiprazole (Abilify) 20 mg DAILY ORAL 06/29/18 09:00 07/29/18 08:59 Dextrose (Dextrose 50%) 25 ml Q30M PRN IV Hypoglycemia 06/27/18 18:45 07/21/18 06:44 Dextrose (Dextrose 50%) 50 ml Q30M PRN IV Hypoglycemia 06/27/18 18:45 07/21/18 06:44 Divalproex Sodium (Depakote) 500 mg BEDTIME ORAL 06/27/18 21:00 07/25/18 20:59 Docusate Sodium (Colace) 100 mg DAILY ORAL 06/28/18 09:00 07/28/18 08:59 06/28/18 09:34 Fenofibrate (Tricor) 145 mg DAILY ORAL 06/28/18 09:00 07/22/18 14:29 06/28/18 09:35 Gabapentin (Neurontin) 100 mg BID ORAL 06/28/18 09:00 07/21/18 08:59 06/28/18 09:35 Heparin Sodium (Porcine) (Heparin 5000 units/ml) 5,000 units EVERY 12 HOURS SUBQ 06/27/18 21:00 07/21/18 08:59 06/28/18 09:38 Hydromorphone HCl (Dilaudid) 4 mg Q4H PRN ORAL pain 7-10 06/27/18 19:00 06/28/18 18:59 06/28/18 12:50 Insulin Aspart (NovoLOG) BEFORE MEALS AND HS SUBQ 06/27/18 21:00 07/27/18 20:59 06/28/18 12:53 Insulin Aspart (NovoLOG) 23 units NOVOTIAC SUBQ 06/28/18 06:30 07/21/18 06:44 06/28/18 12:54 Insulin Detemir (Levemir) 40 units BID SUBQ 06/28/18 09:00 07/21/18 08:59 06/28/18 09:37 Lactulose (Cephulac) 30 gm THREE TIMES A DAY ORAL 06/28/18 09:00 07/21/18 08:59 Lamotrigine (LaMICtal) 50 mg DAILY ORAL 06/29/18 09:00 07/29/18 08:59 Lorazepam (Ativan 2mg/ml 1ml) 1 mg Q4H PRN IM For Anxiety 06/27/18 19:00 07/02/18 18:59 Lorazepam (Ativan 2mg/ml 1ml) 1 mg Q4H PRN IV For Anxiety 06/27/18 19:00 07/02/18 18:59 06/28/18 10:26 Magnesium Hydroxide (Mom) 30 ml 3XW PRN ORAL Constipation 06/27/18 18:45 07/27/18 18:44 Magnesium Oxide (Mag-Ox 400mg) 400 mg THREE TIMES A DAY ORAL 06/28/18 09:00 07/27/18 17:59 06/28/18 09:41 Metformin HCl (Glucophage) 500 mg TID ORAL 06/28/18 09:00 07/28/18 08:59 06/28/18 09:34 Nicotine (Nicoderm) 1 patch Q24H TDERMAL 06/28/18 10:00 07/24/18 09:59 06/28/18 09:39 Oxybutynin Chloride (Ditropan) 10 mg BID ORAL 06/28/18 09:00 07/22/18 08:59 06/28/18 09:45 Pantoprazole (Protonix) 40 mg EVERY 12 HOURS ORAL 06/27/18 21:00 07/21/18 20:59 06/28/18 09:42 Sodium Phosphate (Fleet's Sodium Phosl Enema) 133 ml QOD PRN RECTAL Constipation 06/27/18 18:45 07/27/18 18:44 Tizanidine HCl (Zanaflex) 2 mg Q12H PRN ORAL spasm 06/27/18 19:00 07/27/18 18:59 Trazodone HCl (Desyrel) 50 mg HSPRN PRN ORAL insomia 06/27/18 21:00 07/22/18 20:59 06/27/18 20:31 Joao Siu MD Jun 28, 2018 13:24
--- NOTE | 2018-06-28 13:39 | Surgery Progress Note ---
Surgery Progress Note Subjective Additional Comments +BM. no complaints. pain okay. no n/v/f/c. labs noted. exam unchanged. wants to go somewhere else on discharge. Objective Last 24 Hour Vital Signs Date Time Temp Pulse Resp B/P (MAP) Pulse Ox O2 Delivery O2 Flow Rate FiO2 06/28/18 09:00 Room Air 06/28/18 08:12 98.3 98 18 125/78 (94) 98 06/28/18 04:00 97.8 99 18 129/81 (97) 98 06/28/18 00:00 97.7 90 19 105/72 (83) 98 06/27/18 21:00 Room Air 06/27/18 20:00 98.6 100 19 144/86 (105) 98 06/27/18 18:00 98.8 108 19 130/98 (109) 97 06/27/18 16:00 98.3 99 18 125/79 (94) 100 I&O Intake and Output 06/27/18 06/28/18 19:00 07:00 Intake Total 1500 ml Output Total 900 ml 1900 ml Balance 600 ml -1900 ml Intake Oral 1500 ml Output Urine Total 900 ml 1900 ml # Bowel Movements 1 Dressing: other Wound: other Drains: other Cardiovascular: RSR Respiratory: clear Abdomen: soft, distended, non-tender, present bowel sounds Extremities: no tenderness, no cyanosis Laboratory Tests Test 06/28/18 06:52 White Blood Count 5.5 K/UL (4.8-10.8) Red Blood Count 4.39 M/UL (4.70-6.10) L Hemoglobin 12.2 G/DL (14.2-18.0) L Hematocrit 38.4 % (42.0-52.0) L Mean Corpuscular Volume 88 FL (80-99) Mean Corpuscular Hemoglobin 27.8 PG (27.0-31.0) Mean Corpuscular Hemoglobin Concent 31.7 G/DL (32.0-36.0) L Red Cell Distribution Width 15.6 % (11.6-14.8) H Platelet Count 222 K/UL (150-450) Mean Platelet Volume 4.8 FL (6.5-10.1) L Neutrophils (%) (Auto) 45.6 % (45.0-75.0) Lymphocytes (%) (Auto) 43.7 % (20.0-45.0) Monocytes (%) (Auto) 6.8 % (1.0-10.0) Eosinophils (%) (Auto) 2.8 % (0.0-3.0) Basophils (%) (Auto) 1.1 % (0.0-2.0) Sodium Level 136 MMOL/L (136-145) Potassium Level 4.1 MMOL/L (3.5-5.1) Chloride Level 102 MMOL/L (98-107) Carbon Dioxide Level 21 MMOL/L (21-32) Anion Gap 13 mmol/L (5-15) Blood Urea Nitrogen 16 mg/dL (7-18) Creatinine 0.5 MG/DL (0.55-1.30) L Estimat Glomerular Filtration Rate > 60 mL/min (>60) Glucose Level 209 MG/DL (74-106) H Calcium Level 8.6 MG/DL (8.5-10.1) Plan Problems: (1) Abnormal urogenital findings (2) Paraplegia (3) Spina bifida (4) Diabetes mellitus Assessment & Plan: DAILY ESTIMATED NEEDS: Needs based on Quadriplegia, wound 65.5kg adj 23-28 kcals/kg 3696-2440 total kcals 1.25-1.5 g protein/kg 82-98 g total protein 25-30 mL/kg 8996-9984 total fluid mLs NUTRITION DIAGNOSIS: 1) Increased protein needs r/t wound healing and h/o quadriplegia as evidenced by pt w/ h/o stage 3 ischial wound and resolving sacral wound. 2) Altered nutrition related lab values r/t diabetes as evidenced by elev BG (633, 395) and elev POC, Uglu 4+ on adm. CURRENT DIET:[facility] MED PO DIET RECOMMENDATIONS: DIET CHANGE-> -> CCHO LOW W/ DOUBLE PROTEIN PORTIONS ADDITIONAL RECOMMENDATIONS: 1) Wound care: add JIM BID + VIT C 250mg BID + MVI x1 daily 2) Check A1C 3) RE-calibrate bed scale for accurate CWB 4) F/up w/ WC eval (5) Limited mobility in bed (6) Sepsis (7) Uncontrolled diabetes mellitus (8) Abdominal distension Assessment & Plan: stable as compared to prior exam continue with bowel regimen KUB noted will follow with serial exam and recs d/c planning okay to discharge from surgical standpoint thank you (9) Decubitus skin ulcer Assessment & Plan: Pt presented on admission with multiple partial thickness pressure injuries secondary to shearing R,L Buttocks ,Scrotum and both ischial regions. Moisture related intertrigo noted to L groin and abd panus.All affected areas cleansed with Soap and water .Triad Paste applied to affected areas including pressure areas on buttocks and both ischail areas. Tx.plan: Apply Triad paste to abd fols, Both groin,Scrotum and Buttocks with each perineal care. Reposition At least every 2hours or as tolerated. Off-Load heels with Pillow. (10) Intractable back pain Endy De La Rosa Jun 28, 2018 13:39
--- NOTE | 2018-06-28 14:46 | Nephrology Progress Note ---
Assessment/Plan Problem List: (1) Hyponatremia (2) Diabetes mellitus Assessment: OOC (3) Sepsis (4) Paraplegia (5) High blood triglycerides Assessment high K , due to hemolysis HypoNatremia due to High Glucose / hyperglycemia Uncontrolled Dm UTI ? Sepsis ? suprepubic cath, High lactic level Spina bifida / Paraplegia Limited mobility MS Plan PO Mag Oxide BS control Urine culture 3% saline as needed tricor for high Trigs Monitor lytes per orders urine cultures Subjective ROS Limited/Unobtainable: No Constitutional: Reports: malaise Objective Objective Last 24 Hour Vital Signs Date Time Temp Pulse Resp B/P (MAP) Pulse Ox O2 Delivery O2 Flow Rate FiO2 06/28/18 12:00 97.7 79 18 130/71 (90) 97 06/28/18 09:00 Room Air 06/28/18 08:12 98.3 98 18 125/78 (94) 98 06/28/18 04:00 97.8 99 18 129/81 (97) 98 06/28/18 00:00 97.7 90 19 105/72 (83) 98 06/27/18 21:00 Room Air 06/27/18 20:00 98.6 100 19 144/86 (105) 98 06/27/18 18:00 98.8 108 19 130/98 (109) 97 06/27/18 16:00 98.3 99 18 125/79 (94) 100 Intake and Output 06/27/18 06/28/18 19:00 07:00 Intake Total 1500 ml Output Total 900 ml 1900 ml Balance 600 ml -1900 ml Intake Oral 1500 ml Output Urine Total 900 ml 1900 ml # Bowel Movements 1 Laboratory Tests 06/28/18 06:52: White Blood Count 5.5, Red Blood Count 4.39L, Hemoglobin 12.2L, Hematocrit 38.4L , Mean Corpuscular Volume 88, Mean Corpuscular Hemoglobin 27.8, Mean Corpuscular Hemoglobin Concent 31.7L, Red Cell Distribution Width 15.6H, Platelet Count 222, Mean Platelet Volume 4.8L, Neutrophils (%) (Auto) 45.6, Lymphocytes (%) (Auto) 43.7, Monocytes (%) (Auto) 6.8, Eosinophils (%) (Auto) 2.8, Basophils (%) (Auto) 1.1, Sodium Level 136, Potassium Level 4.1, Chloride Level 102, Carbon Dioxide Level 21, Anion Gap 13, Blood Urea Nitrogen 16, Creatinine 0.5L, Estimat Glomerular Filtration Rate > 60, Glucose Level 209H, Calcium Level 8.6 Height (Feet): 5 Height (Inches): 4.00 Weight (Pounds): 205 General Appearance: no apparent distress Cardiovascular: normal rate Respiratory/Chest: decreased breath sounds Abdomen: soft Objective no change Elvin Robles MD Jun 28, 2018 14:46
--- NOTE | 2018-06-28 15:05 | General Progress Note ---
Assessment/Plan Problem List: (1) Multiple sclerosis ICD Codes: G35 - Multiple sclerosis SNOMED: 28718506 (2) Dehydration ICD Codes: E86.0 - Dehydration SNOMED: 50959124 (3) Weak ICD Codes: R53.1 - Weakness SNOMED: 79302267 Status: stable, progressing Assessment/Plan: pt diet cbc bmp am dc plan snf if all clear Subjective Constitutional: Reports: weakness Allergies: Coded Allergies: CIPROFLOXACIN (Verified Allergy, Unknown, 06/14/18) HALOPERIDOL (Verified Allergy, Unknown, 06/14/18) RISPERIDONE (Verified Allergy, Unknown, 06/14/18) SENNA (Verified Allergy, Unknown, 06/14/18) All Systems: reviewed and negative except above Subjective sleeping calm Objective Last 24 Hour Vital Signs Date Time Temp Pulse Resp B/P (MAP) Pulse Ox O2 Delivery O2 Flow Rate FiO2 06/28/18 12:00 97.7 79 18 130/71 (90) 97 06/28/18 09:00 Room Air 06/28/18 08:12 98.3 98 18 125/78 (94) 98 06/28/18 04:00 97.8 99 18 129/81 (97) 98 06/28/18 00:00 97.7 90 19 105/72 (83) 98 06/27/18 21:00 Room Air 06/27/18 20:00 98.6 100 19 144/86 (105) 98 06/27/18 18:00 98.8 108 19 130/98 (109) 97 06/27/18 16:00 98.3 99 18 125/79 (94) 100 Intake and Output 06/27/18 06/28/18 19:00 07:00 Intake Total 1500 ml Output Total 900 ml 1900 ml Balance 600 ml -1900 ml Intake Oral 1500 ml Output Urine Total 900 ml 1900 ml # Bowel Movements 1 Laboratory Tests 06/28/18 06:52: White Blood Count 5.5, Red Blood Count 4.39L, Hemoglobin 12.2L, Hematocrit 38.4L , Mean Corpuscular Volume 88, Mean Corpuscular Hemoglobin 27.8, Mean Corpuscular Hemoglobin Concent 31.7L, Red Cell Distribution Width 15.6H, Platelet Count 222, Mean Platelet Volume 4.8L, Neutrophils (%) (Auto) 45.6, Lymphocytes (%) (Auto) 43.7, Monocytes (%) (Auto) 6.8, Eosinophils (%) (Auto) 2.8, Basophils (%) (Auto) 1.1, Sodium Level 136, Potassium Level 4.1, Chloride Level 102, Carbon Dioxide Level 21, Anion Gap 13, Blood Urea Nitrogen 16, Creatinine 0.5L, Estimat Glomerular Filtration Rate > 60, Glucose Level 209H, Calcium Level 8.6 Height (Feet): 5 Height (Inches): 4.00 Weight (Pounds): 205 General Appearance: lethargic EENT: normal ENT inspection Neck: normal alignment Cardiovascular: normal peripheral pulses, normal rate, regular rhythm Respiratory/Chest: chest wall non-tender, lungs clear, normal breath sounds Abdomen: normal bowel sounds, non tender, soft Extremities: normal inspection Edema: no edema noted Arm (L), no edema noted Arm (R), no edema noted Leg (L), no edema noted Leg (R), no edema noted Pedal (L), no edema noted Pedal (R), no edema noted Generalized Neurologic: motor weakness Skin: normal pigmentation, warm/dry Srini Cxo DO Jun 28, 2018 15:05
[2018-06-28] MEDS ORDERED: Milk of Magnesia 30ml Ud ORAL PRN (17:00)
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
[2018-06-28 20:00] VITALS: BP 113/78
[2018-06-28] MEDS ORDERED: HYDROmorphone 4mg tab ORAL PRN ×2 (20:00→22:15)
[2018-06-28 21:00] VITALS: BP 118/81
[2018-06-28] MEDS: Depakote 500mg tab ORAL SCH (21:54)
[2018-06-28] MEDS: Morphine Sulfate 4mg/ml Inj (IV USE ONLY) IVP PRN (22:34)
[2018-06-29] VITALS: BP 118/81
[2018-06-29] MEDS: LORazepam Inj 2mg/ml 1ml IV PRN ×3 (01:56→20:34)
[2018-06-29] MEDS: Morphine Sulfate 4mg/ml Inj (IV USE ONLY) IVP PRN ×5 (03:12→22:22)
[2018-06-29 05:00] VITALS: BP 139/67
[2018-06-29] MEDS: NovoLOG Insulin Flexpen SUBQ SCH ×7 (06:28→21:00)
--- NOTE | 2018-06-29 06:48 | General Progress Note ---
Assessment/Plan Problem List: (1) Uncontrolled diabetes mellitus ICD Codes: E11.65 - Type 2 diabetes mellitus with hyperglycemia SNOMED: 42551224, 042969812 (2) Paraplegia ICD Codes: G82.20 - Paraplegia, unspecified SNOMED: 18981774 (3) Spina bifida ICD Codes: Q05.9 - Spina bifida, unspecified SNOMED: 43785654 Status: stable, progressing Assessment/Plan: reduce Levemir to 35 units bid reduce Novolog to 15 units tid continue Metformin 500 mg tid continue NISS ac / hs Subjective Allergies: Coded Allergies: CIPROFLOXACIN (Verified Allergy, Unknown, 06/14/18) HALOPERIDOL (Verified Allergy, Unknown, 06/14/18) RISPERIDONE (Verified Allergy, Unknown, 06/14/18) SENNA (Verified Allergy, Unknown, 06/14/18) All Systems: reviewed and negative except above Subjective events noted glycemic control improved Item Value Date Time Bedside Blood Glucose 146 mg/dl H 06/29/18 0628 Bedside Blood Glucose 159 mg/dl H 06/28/18 1909 Bedside Blood Glucose 134 mg/dl H 06/28/18 1826 Bedside Blood Glucose 173 mg/dl H 06/28/18 1254 Bedside Blood Glucose 201 mg/dl H 06/28/18 0937 Bedside Blood Glucose 201 mg/dl H 06/28/18 0630 Objective Last 24 Hour Vital Signs Date Time Temp Pulse Resp B/P (MAP) Pulse Ox O2 Delivery O2 Flow Rate FiO2 06/29/18 05:00 98.4 99 18 139/67 (91) 98 06/29/18 03:42 98.4 06/29/18 00:00 98.8 102 18 118/81 (93) 98 06/28/18 21:00 98.8 102 18 118/81 (93) 98 06/28/18 21:00 Room Air 06/28/18 20:00 99.0 106 16 113/78 (90) 98 06/28/18 12:00 97.7 79 18 130/71 (90) 97 06/28/18 09:00 Room Air 06/28/18 08:12 98.3 98 18 125/78 (94) 98 Intake and Output 06/28/18 06/29/18 19:00 07:00 Intake Total 680 ml 360 ml Output Total 700 ml Balance 680 ml -340 ml Intake Oral 680 ml 360 ml Output Urine Total 700 ml # Voids 1 Laboratory Tests 06/28/18 06:52: White Blood Count 5.5, Red Blood Count 4.39L, Hemoglobin 12.2L, Hematocrit 38.4L , Mean Corpuscular Volume 88, Mean Corpuscular Hemoglobin 27.8, Mean Corpuscular Hemoglobin Concent 31.7L, Red Cell Distribution Width 15.6H, Platelet Count 222, Mean Platelet Volume 4.8L, Neutrophils (%) (Auto) 45.6, Lymphocytes (%) (Auto) 43.7, Monocytes (%) (Auto) 6.8, Eosinophils (%) (Auto) 2.8, Basophils (%) (Auto) 1.1, Sodium Level 136, Potassium Level 4.1, Chloride Level 102, Carbon Dioxide Level 21, Anion Gap 13, Blood Urea Nitrogen 16, Creatinine 0.5L, Estimat Glomerular Filtration Rate > 60, Glucose Level 209H, Calcium Level 8.6 Height (Feet): 5 Height (Inches): 4.00 Weight (Pounds): 205 General Appearance: no apparent distress Neck: normal alignment Cardiovascular: normal rate Respiratory/Chest: lungs clear Abdomen: normal bowel sounds Extremities: other - paraplegic Objective Current Medications Medications (Trade) Dose Ordered Sig/Trevin Route PRN Reason Start Time Stop Time Status Last Admin Dose Admin Aripiprazole (Abilify) 20 mg DAILY ORAL 06/29/18 09:00 07/29/18 08:59 Dextrose (Dextrose 50%) 25 ml Q30M PRN IV Hypoglycemia 06/27/18 18:45 07/21/18 06:44 Dextrose (Dextrose 50%) 50 ml Q30M PRN IV Hypoglycemia 06/27/18 18:45 07/21/18 06:44 Divalproex Sodium (Depakote) 500 mg BEDTIME ORAL 06/27/18 21:00 07/25/18 20:59 06/28/18 21:54 Docusate Sodium (Colace) 100 mg DAILY ORAL 06/28/18 09:00 07/28/18 08:59 06/28/18 09:34 Fenofibrate (Tricor) 145 mg DAILY ORAL 06/28/18 09:00 07/22/18 14:29 06/28/18 09:35 Gabapentin (Neurontin) 100 mg BID ORAL 06/28/18 09:00 07/21/18 08:59 06/28/18 09:35 Heparin Sodium (Porcine) (Heparin 5000 units/ml) 5,000 units EVERY 12 HOURS SUBQ 06/27/18 21:00 07/21/18 08:59 06/28/18 09:38 Hydromorphone HCl (Dilaudid) 4 mg Q4H PRN ORAL Severe Pain (Pain Scale 7-10) 06/28/18 22:15 07/05/18 22:14 Insulin Aspart (NovoLOG) BEFORE MEALS AND HS SUBQ 06/27/18 21:00 07/27/18 20:59 06/28/18 12:53 Insulin Aspart (NovoLOG) 23 units NOVOTIAC SUBQ 06/28/18 06:30 07/21/18 06:44 06/28/18 18:26 Insulin Detemir (Levemir) 40 units BID SUBQ 06/28/18 09:00 07/21/18 08:59 06/28/18 19:07 Lactulose (Cephulac) 30 gm THREE TIMES A DAY ORAL 06/28/18 09:00 07/21/18 08:59 Lamotrigine (LaMICtal) 50 mg DAILY ORAL 06/29/18 09:00 07/29/18 08:59 Lorazepam (Ativan 2mg/ml 1ml) 1 mg Q4H PRN IM For Anxiety 06/27/18 19:00 07/02/18 18:59 Lorazepam (Ativan 2mg/ml 1ml) 1 mg Q4H PRN IV For Anxiety 06/27/18 19:00 07/02/18 18:59 06/29/18 01:56 Magnesium Hydroxide (Mom) 30 ml 3XW PRN ORAL Constipation 06/27/18 18:45 07/27/18 18:44 Magnesium Oxide (Mag-Ox 400mg) 400 mg THREE TIMES A DAY ORAL 06/28/18 09:00 07/27/18 17:59 06/28/18 13:48 Metformin HCl (Glucophage) 500 mg TID ORAL 06/28/18 09:00 07/28/18 08:59 06/28/18 13:47 Morphine Sulfate (Morphine Sulfate) 4 mg Q4H PRN IVP For Pain 06/28/18 19:00 07/05/18 18:59 06/29/18 03:12 Nicotine (Nicoderm) 1 patch Q24H TDERMAL 06/28/18 10:00 07/24/18 09:59 06/28/18 09:39 Oxybutynin Chloride (Ditropan) 10 mg BID ORAL 06/28/18 09:00 07/22/18 08:59 06/28/18 09:45 Pantoprazole (Protonix) 40 mg EVERY 12 HOURS ORAL 06/27/18 21:00 07/21/18 20:59 06/28/18 21:54 Sodium Phosphate (Fleet's Sodium Phosl Enema) 133 ml QOD PRN RECTAL Constipation 06/27/18 18:45 07/27/18 18:44 Tizanidine HCl (Zanaflex) 2 mg Q12H PRN ORAL spasm 06/27/18 19:00 07/27/18 18:59 Trazodone HCl (Desyrel) 50 mg HSPRN PRN ORAL insomia 06/27/18 21:00 07/22/18 20:59 06/27/18 20:31 Arden Rossi MD Jun 29, 2018 06:48
[2018-06-29 08:00] VITALS: BP 116/76
[2018-06-29] MEDS: Oxybutynin 5mg tab ORAL SCH ×2 (09:23→17:34)
[2018-06-29] MEDS: metFORMIN 500mg tab ORAL SCH ×3 (09:23→17:34)
[2018-06-29] MEDS: Lactulose 20gm/30ml UDC ORAL SCH ×3 (09:23→17:37)
[2018-06-29] MEDS: Docusate 100mg cap ORAL SCH (09:24)
[2018-06-29] MEDS: Magnesium Oxide 400mg tab ORAL SCH ×3 (09:24→17:34)
[2018-06-29] MEDS: ARIPiprazole 10mg tab ORAL SCH (09:24)
[2018-06-29] MEDS: Levemir Flexpen SUBQ SCH ×2 (09:30→17:35)
[2018-06-29] MEDS: Heparin 5000 units/ml inj SUBQ SCH ×2 (09:31→21:13)
[2018-06-29 10:28] LABS: BASOPHILS % (AUTO) 0.6 % (0.0-2.0); EOSINOPHILS % (AUTO) 1.6 % (0.0-3.0); HEMATOCRIT 36.5 % (42.0-52.0); MEAN CORPUSCULAR VOLUME 86 FL (80-99); MONOCYTES % (AUTO) 8.3 % (1.0-10.0); NEUTROPHILS % (AUTO) 71.6 % (45.0-75.0); PLATELET COUNT 281 K/UL (150-450); RED BLOOD COUNT 4.24 M/UL (4.70-6.10); WHITE BLOOD COUNT 9.4 K/UL (4.8-10.8)
[2018-06-29 10:39] LABS: ANION GAP 9 mmol/L (5-15); BLOOD UREA NITROGEN 19 mg/dL (7-18); CALCIUM 8.5 MG/DL (8.5-10.1); CARBON DIOXIDE 24 MMOL/L (21-32); CHLORIDE 103 MMOL/L (98-107); CREATININE 0.5 MG/DL (0.55-1.30); POTASSIUM 4.2 MMOL/L (3.5-5.1); SODIUM 136 MMOL/L (136-145)
[2018-06-29] MEDS: Fleet's Enema 133ml RECTAL PRN (11:15)
--- NOTE | 2018-06-29 12:26 | Infectious Diseases Prog Note ---
Assessment/Plan Assessment/Plan IMPRESSION: 1. Positive blood culture with Staph epidermidis likely contamination 2. urinary tract infection 3. schizophrenia, noncompliance with medication, 4.diabetes mellitus, 5.chronic pain, 6.spina bifida, 7.chronic obstructive pulmonary disease, 8. s/p suprapubic catheter. 9. ESBL E. coli colonization RECOMMENDATION: Patient refuses antibiotics Observe off antibiotic Subjective ROS Limited/Unobtainable: Yes Psychiatric: Reports: depression, other - feels he isdying, needs hospice Allergies: Coded Allergies: CIPROFLOXACIN (Verified Allergy, Unknown, 06/14/18) HALOPERIDOL (Verified Allergy, Unknown, 06/14/18) RISPERIDONE (Verified Allergy, Unknown, 06/14/18) SENNA (Verified Allergy, Unknown, 06/14/18) Objective Vital Signs Last 24 Hour Vital Signs Date Time Temp Pulse Resp B/P (MAP) Pulse Ox O2 Delivery O2 Flow Rate FiO2 06/29/18 10:01 98.2 06/29/18 09:00 Room Air 06/29/18 08:00 98.2 92 19 116/76 (89) 98 06/29/18 05:00 98.4 99 18 139/67 (91) 98 06/29/18 00:00 98.8 102 18 118/81 (93) 98 06/28/18 21:00 98.8 102 18 118/81 (93) 98 06/28/18 21:00 Room Air 06/28/18 20:00 99.0 106 16 113/78 (90) 98 Height (Feet): 5 Height (Inches): 4.00 Weight (Pounds): 205 General Appearance: no acute distress HEENT: mucous membranes moist Respiratory/Chest: lungs clear Cardiovascular: normal rate Abdomen: soft, non tender Extremities: no edema Skin: ulcers Neurologic/Psychiatric: alert, responsive, other - paraplegic Laboratory Tests Test 06/29/18 10:00 White Blood Count 9.4 K/UL (4.8-10.8) # Red Blood Count 4.24 M/UL (4.70-6.10) L Hemoglobin 12.0 G/DL (14.2-18.0) L Hematocrit 36.5 % (42.0-52.0) L Mean Corpuscular Volume 86 FL (80-99) Mean Corpuscular Hemoglobin 28.3 PG (27.0-31.0) Mean Corpuscular Hemoglobin Concent 32.9 G/DL (32.0-36.0) Red Cell Distribution Width 15.0 % (11.6-14.8) H Platelet Count 281 K/UL (150-450) Mean Platelet Volume 6.4 FL (6.5-10.1) L Neutrophils (%) (Auto) 71.6 % (45.0-75.0) Lymphocytes (%) (Auto) 18.0 % (20.0-45.0) L Monocytes (%) (Auto) 8.3 % (1.0-10.0) Eosinophils (%) (Auto) 1.6 % (0.0-3.0) Basophils (%) (Auto) 0.6 % (0.0-2.0) Sodium Level 136 MMOL/L (136-145) Potassium Level 4.2 MMOL/L (3.5-5.1) Chloride Level 103 MMOL/L (98-107) Carbon Dioxide Level 24 MMOL/L (21-32) Anion Gap 9 mmol/L (5-15) Blood Urea Nitrogen 19 mg/dL (7-18) H Creatinine 0.5 MG/DL (0.55-1.30) L Estimat Glomerular Filtration Rate > 60 mL/min (>60) Glucose Level 201 MG/DL (74-106) H Calcium Level 8.5 MG/DL (8.5-10.1) Current Medications Medications (Trade) Dose Ordered Sig/Trevin Route PRN Reason Start Time Stop Time Status Last Admin Dose Admin Aripiprazole (Abilify) 20 mg DAILY ORAL 06/29/18 09:00 07/29/18 08:59 06/29/18 09:24 Dextrose (Dextrose 50%) 25 ml Q30M PRN IV Hypoglycemia 06/27/18 18:45 07/21/18 06:44 Dextrose (Dextrose 50%) 50 ml Q30M PRN IV Hypoglycemia 06/27/18 18:45 07/21/18 06:44 Divalproex Sodium (Depakote) 500 mg BEDTIME ORAL 06/27/18 21:00 07/25/18 20:59 06/28/18 21:54 Docusate Sodium (Colace) 100 mg DAILY ORAL 06/28/18 09:00 07/28/18 08:59 06/29/18 09:24 Fenofibrate (Tricor) 145 mg DAILY ORAL 06/28/18 09:00 07/22/18 14:29 06/29/18 09:24 Gabapentin (Neurontin) 100 mg BID ORAL 06/28/18 09:00 07/21/18 08:59 06/29/18 09:24 Heparin Sodium (Porcine) (Heparin 5000 units/ml) 5,000 units EVERY 12 HOURS SUBQ 06/27/18 21:00 07/21/18 08:59 06/29/18 09:31 Hydromorphone HCl (Dilaudid) 4 mg Q4H PRN ORAL Severe Pain (Pain Scale 7-10) 06/28/18 22:15 07/05/18 22:14 Insulin Aspart (NovoLOG) BEFORE MEALS AND HS SUBQ 06/27/18 21:00 07/27/18 20:59 06/29/18 11:46 Insulin Aspart (NovoLOG) 15 units NOVOTIAC SUBQ 06/29/18 11:50 07/21/18 06:44 06/29/18 11:41 Insulin Detemir (Levemir) 35 units BID SUBQ 06/29/18 09:00 07/21/18 08:59 06/29/18 09:30 Lactulose (Cephulac) 30 gm THREE TIMES A DAY ORAL 06/28/18 09:00 07/21/18 08:59 06/29/18 09:23 Lamotrigine (LaMICtal) 50 mg DAILY ORAL 06/29/18 09:00 07/29/18 08:59 06/29/18 09:25 Lorazepam (Ativan 2mg/ml 1ml) 1 mg Q4H PRN IM For Anxiety 06/27/18 19:00 07/02/18 18:59 Lorazepam (Ativan 2mg/ml 1ml) 1 mg Q4H PRN IV For Anxiety 06/27/18 19:00 07/02/18 18:59 06/29/18 11:37 Magnesium Hydroxide (Mom) 30 ml 3XW PRN ORAL Constipation 06/27/18 18:45 07/27/18 18:44 Magnesium Oxide (Mag-Ox 400mg) 400 mg THREE TIMES A DAY ORAL 06/28/18 09:00 07/27/18 17:59 06/29/18 09:24 Metformin HCl (Glucophage) 500 mg TID ORAL 06/28/18 09:00 07/28/18 08:59 06/29/18 09:23 Morphine Sulfate (Morphine Sulfate) 4 mg Q4H PRN IVP For Pain 06/28/18 19:00 07/05/18 18:59 06/29/18 09:31 Nicotine (Nicoderm) 1 patch Q24H TDERMAL 06/28/18 10:00 07/24/18 09:59 06/29/18 09:24 Oxybutynin Chloride (Ditropan) 10 mg BID ORAL 06/28/18 09:00 07/22/18 08:59 06/29/18 09:23 Pantoprazole (Protonix) 40 mg EVERY 12 HOURS ORAL 06/27/18 21:00 07/21/18 20:59 06/29/18 09:24 Sodium Phosphate (Fleet's Sodium Phosl Enema) 133 ml QOD PRN RECTAL Constipation 06/27/18 18:45 07/27/18 18:44 06/29/18 11:15 Tizanidine HCl (Zanaflex) 2 mg Q12H PRN ORAL spasm 06/27/18 19:00 07/27/18 18:59 Trazodone HCl (Desyrel) 50 mg HSPRN PRN ORAL insomia 06/27/18 21:00 07/22/18 20:59 06/27/18 20:31 Daniel Murcia MD Jun 29, 2018 12:26
--- NOTE | 2018-06-29 12:31 | Nephrology Progress Note ---
Assessment/Plan Problem List: (1) Hyponatremia (2) Diabetes mellitus Assessment: OOC (3) Sepsis (4) Paraplegia (5) High blood triglycerides Assessment high K , due to hemolysis HypoNatremia due to High Glucose / hyperglycemia Uncontrolled Dm UTI ? Sepsis ? suprepubic cath, High lactic level Spina bifida / Paraplegia Limited mobility MS Plan PO Mag Oxide BS control Urine culture 3% saline as needed tricor for high Trigs Monitor lytes per orders urine cultures Subjective ROS Limited/Unobtainable: No Constitutional: Reports: malaise Objective Objective Last 24 Hour Vital Signs Date Time Temp Pulse Resp B/P (MAP) Pulse Ox O2 Delivery O2 Flow Rate FiO2 06/29/18 10:01 98.2 06/29/18 09:00 Room Air 06/29/18 08:00 98.2 92 19 116/76 (89) 98 06/29/18 05:00 98.4 99 18 139/67 (91) 98 06/29/18 00:00 98.8 102 18 118/81 (93) 98 06/28/18 21:00 98.8 102 18 118/81 (93) 98 06/28/18 21:00 Room Air 06/28/18 20:00 99.0 106 16 113/78 (90) 98 Intake and Output 06/28/18 06/29/18 19:00 07:00 Intake Total 680 ml 360 ml Output Total 700 ml Balance 680 ml -340 ml Intake Oral 680 ml 360 ml Output Urine Total 700 ml # Voids 1 Laboratory Tests 06/29/18 10:00: White Blood Count 9.4#, Red Blood Count 4.24L, Hemoglobin 12.0L, Hematocrit 36.5L, Mean Corpuscular Volume 86, Mean Corpuscular Hemoglobin 28.3, Mean Corpuscular Hemoglobin Concent 32.9, Red Cell Distribution Width 15.0H, Platelet Count 281, Mean Platelet Volume 6.4L, Neutrophils (%) (Auto) 71.6, Lymphocytes (%) (Auto) 18.0L, Monocytes (%) (Auto) 8.3, Eosinophils (%) (Auto) 1.6, Basophils (%) (Auto) 0.6, Sodium Level 136, Potassium Level 4.2, Chloride Level 103, Carbon Dioxide Level 24, Anion Gap 9, Blood Urea Nitrogen 19H, Creatinine 0.5L, Estimat Glomerular Filtration Rate > 60, Glucose Level 201H, Calcium Level 8.5 Height (Feet): 5 Height (Inches): 4.00 Weight (Pounds): 205 General Appearance: no apparent distress Cardiovascular: tachycardia Respiratory/Chest: decreased breath sounds Abdomen: distended Objective no change Elvin Robles MD Jun 29, 2018 12:31
--- NOTE | 2018-06-29 12:56 | Surgery Progress Note ---
Surgery Progress Note Subjective Additional Comments no acute events. comfortable. labs okay. tolerating diet. +bowel function d/c okay from surgical standpoint Objective Last 24 Hour Vital Signs Date Time Temp Pulse Resp B/P (MAP) Pulse Ox O2 Delivery O2 Flow Rate FiO2 06/29/18 10:01 98.2 06/29/18 09:00 Room Air 06/29/18 08:00 98.2 92 19 116/76 (89) 98 06/29/18 05:00 98.4 99 18 139/67 (91) 98 06/29/18 00:00 98.8 102 18 118/81 (93) 98 06/28/18 21:00 98.8 102 18 118/81 (93) 98 06/28/18 21:00 Room Air 06/28/18 20:00 99.0 106 16 113/78 (90) 98 I&O Intake and Output 06/28/18 06/29/18 19:00 07:00 Intake Total 680 ml 360 ml Output Total 700 ml Balance 680 ml -340 ml Intake Oral 680 ml 360 ml Output Urine Total 700 ml # Voids 1 Dressing: dry Wound: clean Cardiovascular: RSR Respiratory: clear Abdomen: soft, distended, non-tender, present bowel sounds Extremities: no tenderness, no cyanosis Laboratory Tests Test 06/29/18 10:00 White Blood Count 9.4 K/UL (4.8-10.8) # Red Blood Count 4.24 M/UL (4.70-6.10) L Hemoglobin 12.0 G/DL (14.2-18.0) L Hematocrit 36.5 % (42.0-52.0) L Mean Corpuscular Volume 86 FL (80-99) Mean Corpuscular Hemoglobin 28.3 PG (27.0-31.0) Mean Corpuscular Hemoglobin Concent 32.9 G/DL (32.0-36.0) Red Cell Distribution Width 15.0 % (11.6-14.8) H Platelet Count 281 K/UL (150-450) Mean Platelet Volume 6.4 FL (6.5-10.1) L Neutrophils (%) (Auto) 71.6 % (45.0-75.0) Lymphocytes (%) (Auto) 18.0 % (20.0-45.0) L Monocytes (%) (Auto) 8.3 % (1.0-10.0) Eosinophils (%) (Auto) 1.6 % (0.0-3.0) Basophils (%) (Auto) 0.6 % (0.0-2.0) Sodium Level 136 MMOL/L (136-145) Potassium Level 4.2 MMOL/L (3.5-5.1) Chloride Level 103 MMOL/L (98-107) Carbon Dioxide Level 24 MMOL/L (21-32) Anion Gap 9 mmol/L (5-15) Blood Urea Nitrogen 19 mg/dL (7-18) H Creatinine 0.5 MG/DL (0.55-1.30) L Estimat Glomerular Filtration Rate > 60 mL/min (>60) Glucose Level 201 MG/DL (74-106) H Calcium Level 8.5 MG/DL (8.5-10.1) Plan Problems: (1) Abnormal urogenital findings (2) Paraplegia (3) Spina bifida (4) Diabetes mellitus Assessment & Plan: DAILY ESTIMATED NEEDS: Needs based on Quadriplegia, wound 65.5kg adj 23-28 kcals/kg 7529-5036 total kcals 1.25-1.5 g protein/kg 82-98 g total protein 25-30 mL/kg 5909-0694 total fluid mLs NUTRITION DIAGNOSIS: 1) Increased protein needs r/t wound healing and h/o quadriplegia as evidenced by pt w/ h/o stage 3 ischial wound and resolving sacral wound. 2) Altered nutrition related lab values r/t diabetes as evidenced by elev BG (633, 395) and elev POC, Uglu 4+ on adm. CURRENT DIET:[facility] MED PO DIET RECOMMENDATIONS: DIET CHANGE-> -> [facility] LOW W/ DOUBLE PROTEIN PORTIONS ADDITIONAL RECOMMENDATIONS: 1) Wound care: add JIM BID + VIT C 250mg BID + MVI x1 daily 2) Check A1C 3) RE-calibrate bed scale for accurate CWB 4) F/up w/ WC eval (5) Limited mobility in bed (6) Sepsis (7) Uncontrolled diabetes mellitus (8) Abdominal distension Assessment & Plan: stable as compared to prior exam continue with bowel regimen KUB noted will follow with serial exam and recs d/c planning okay to discharge from surgical standpoint thank you (9) Decubitus skin ulcer Assessment & Plan: Pt presented on admission with multiple partial thickness pressure injuries secondary to shearing R,L Buttocks ,Scrotum and both ischial regions. Moisture related intertrigo noted to L groin and abd panus.All affected areas cleansed with Soap and water .Triad Paste applied to affected areas including pressure areas on buttocks and both ischail areas. Tx.plan: Apply Triad paste to abd fols, Both groin,Scrotum and Buttocks with each perineal care. Reposition At least every 2hours or as tolerated. Off-Load heels with Pillow. (10) Intractable back pain Endy De La Rosa Jun 29, 2018 12:56
--- NOTE | 2018-06-29 14:00 | General Progress Note ---
Assessment/Plan Problem List: (1) Multiple sclerosis ICD Codes: G35 - Multiple sclerosis SNOMED: 74146585 (2) Dehydration ICD Codes: E86.0 - Dehydration SNOMED: 25814220 (3) Weak ICD Codes: R53.1 - Weakness SNOMED: 09809841 Status: stable, progressing Assessment/Plan: pt diet cbc bmp am dc plan snf if all clear Subjective Constitutional: Reports: weakness Allergies: Coded Allergies: CIPROFLOXACIN (Verified Allergy, Unknown, 06/14/18) HALOPERIDOL (Verified Allergy, Unknown, 06/14/18) RISPERIDONE (Verified Allergy, Unknown, 06/14/18) SENNA (Verified Allergy, Unknown, 06/14/18) All Systems: reviewed and negative except above Subjective sleeping calm Objective Last 24 Hour Vital Signs Date Time Temp Pulse Resp B/P (MAP) Pulse Ox O2 Delivery O2 Flow Rate FiO2 06/29/18 10:01 98.2 06/29/18 09:00 Room Air 06/29/18 08:00 98.2 92 19 116/76 (89) 98 06/29/18 05:00 98.4 99 18 139/67 (91) 98 06/29/18 00:00 98.8 102 18 118/81 (93) 98 06/28/18 21:00 98.8 102 18 118/81 (93) 98 06/28/18 21:00 Room Air 06/28/18 20:00 99.0 106 16 113/78 (90) 98 Intake and Output 06/28/18 06/29/18 19:00 07:00 Intake Total 680 ml 360 ml Output Total 700 ml Balance 680 ml -340 ml Intake Oral 680 ml 360 ml Output Urine Total 700 ml # Voids 1 Laboratory Tests 06/29/18 10:00: White Blood Count 9.4#, Red Blood Count 4.24L, Hemoglobin 12.0L, Hematocrit 36.5L, Mean Corpuscular Volume 86, Mean Corpuscular Hemoglobin 28.3, Mean Corpuscular Hemoglobin Concent 32.9, Red Cell Distribution Width 15.0H, Platelet Count 281, Mean Platelet Volume 6.4L, Neutrophils (%) (Auto) 71.6, Lymphocytes (%) (Auto) 18.0L, Monocytes (%) (Auto) 8.3, Eosinophils (%) (Auto) 1.6, Basophils (%) (Auto) 0.6, Sodium Level 136, Potassium Level 4.2, Chloride Level 103, Carbon Dioxide Level 24, Anion Gap 9, Blood Urea Nitrogen 19H, Creatinine 0.5L, Estimat Glomerular Filtration Rate > 60, Glucose Level 201H, Calcium Level 8.5 Height (Feet): 5 Height (Inches): 4.00 Weight (Pounds): 205 General Appearance: lethargic EENT: normal ENT inspection Neck: normal alignment Cardiovascular: normal peripheral pulses, normal rate, regular rhythm Respiratory/Chest: chest wall non-tender, lungs clear, normal breath sounds Abdomen: normal bowel sounds, non tender, soft Extremities: normal inspection Edema: no edema noted Arm (L), no edema noted Arm (R), no edema noted Leg (L), no edema noted Leg (R), no edema noted Pedal (L), no edema noted Pedal (R), no edema noted Generalized Neurologic: motor weakness Skin: normal pigmentation, warm/dry Srini Cox DO Jun 29, 2018 14:00
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
[2018-06-29 16:00] VITALS: BP 122/79
--- NOTE | 2018-06-29 16:11 | Pulmonology Progress Note ---
Assessment/Plan Problems: (1) Hyperkalemia (2) Hyponatremia (3) Sepsis (4) Uncontrolled diabetes mellitus (5) Spina bifida (6) Limited mobility in bed (7) Chronic suprapubic catheter (8) Paraplegia (9) Diabetes mellitus Assessment/Plan eating well check electrolytes iv fluids check cultures f/u ID recommendations pain management increase Methadone to 15 Q8 dvt prophylaxis. med/surg pt doesn't want to go back to [place] Subjective ROS Limited/Unobtainable: No Constitutional: Reports: no symptoms HEENT: Repors: no symptoms Allergies: Coded Allergies: CIPROFLOXACIN (Verified Allergy, Unknown, 06/14/18) HALOPERIDOL (Verified Allergy, Unknown, 06/14/18) RISPERIDONE (Verified Allergy, Unknown, 06/14/18) SENNA (Verified Allergy, Unknown, 06/14/18) Objective Last 24 Hour Vital Signs Date Time Temp Pulse Resp B/P (MAP) Pulse Ox O2 Delivery O2 Flow Rate FiO2 06/29/18 14:02 98.2 06/29/18 09:00 Room Air 06/29/18 08:00 98.2 92 19 116/76 (89) 98 06/29/18 05:00 98.4 99 18 139/67 (91) 98 06/29/18 00:00 98.8 102 18 118/81 (93) 98 06/28/18 21:00 98.8 102 18 118/81 (93) 98 06/28/18 21:00 Room Air 06/28/18 20:00 99.0 106 16 113/78 (90) 98 Intake and Output 06/28/18 06/29/18 19:00 07:00 Intake Total 680 ml 360 ml Output Total 700 ml Balance 680 ml -340 ml Intake Oral 680 ml 360 ml Output Urine Total 700 ml # Voids 1 Objective General Appearance: WD/WN HEENT: normocephalic, atraumatic Respiratory/Chest: chest wall non-tender, normal breath sounds Cardiovascular: normal peripheral pulses, normal rate Abdomen: normal bowel sounds, soft, non tender, no organomegaly, non distended Extremities: no cyanosis Skin: no rash, no lesions, no ulcers Laboratory Tests 06/29/18 10:00: White Blood Count 9.4#, Red Blood Count 4.24L, Hemoglobin 12.0L, Hematocrit 36.5L, Mean Corpuscular Volume 86, Mean Corpuscular Hemoglobin 28.3, Mean Corpuscular Hemoglobin Concent 32.9, Red Cell Distribution Width 15.0H, Platelet Count 281, Mean Platelet Volume 6.4L, Neutrophils (%) (Auto) 71.6, Lymphocytes (%) (Auto) 18.0L, Monocytes (%) (Auto) 8.3, Eosinophils (%) (Auto) 1.6, Basophils (%) (Auto) 0.6, Sodium Level 136, Potassium Level 4.2, Chloride Level 103, Carbon Dioxide Level 24, Anion Gap 9, Blood Urea Nitrogen 19H, Creatinine 0.5L, Estimat Glomerular Filtration Rate > 60, Glucose Level 201H, Calcium Level 8.5 Current Medications Medications (Trade) Dose Ordered Sig/Trevin Route PRN Reason Start Time Stop Time Status Last Admin Dose Admin Aripiprazole (Abilify) 20 mg DAILY ORAL 06/29/18 09:00 07/29/18 08:59 06/29/18 09:24 Dextrose (Dextrose 50%) 25 ml Q30M PRN IV Hypoglycemia 06/27/18 18:45 07/21/18 06:44 Dextrose (Dextrose 50%) 50 ml Q30M PRN IV Hypoglycemia 06/27/18 18:45 07/21/18 06:44 Divalproex Sodium (Depakote) 500 mg EVERY 12 HOURS ORAL 06/29/18 21:00 07/29/18 20:59 Docusate Sodium (Colace) 100 mg DAILY ORAL 06/28/18 09:00 07/28/18 08:59 06/29/18 09:24 Fenofibrate (Tricor) 145 mg DAILY ORAL 06/28/18 09:00 07/22/18 14:29 06/29/18 09:24 Gabapentin (Neurontin) 100 mg BID ORAL 06/28/18 09:00 07/21/18 08:59 06/29/18 09:24 Heparin Sodium (Porcine) (Heparin 5000 units/ml) 5,000 units EVERY 12 HOURS SUBQ 06/27/18 21:00 07/21/18 08:59 06/29/18 09:31 Hydromorphone HCl (Dilaudid) 4 mg Q4H PRN ORAL Severe Pain (Pain Scale 7-10) 06/28/18 22:15 07/05/18 22:14 Insulin Aspart (NovoLOG) BEFORE MEALS AND HS SUBQ 06/27/18 21:00 07/27/18 20:59 06/29/18 11:46 Insulin Aspart (NovoLOG) 15 units NOVOTIAC SUBQ 06/29/18 11:50 07/21/18 06:44 06/29/18 11:41 Insulin Detemir (Levemir) 35 units BID SUBQ 06/29/18 09:00 07/21/18 08:59 06/29/18 09:30 Lactulose (Cephulac) 30 gm THREE TIMES A DAY ORAL 06/28/18 09:00 07/21/18 08:59 06/29/18 13:32 Lamotrigine (LaMICtal) 50 mg DAILY ORAL 06/29/18 09:00 07/29/18 08:59 06/29/18 09:25 Lorazepam (Ativan 2mg/ml 1ml) 1 mg Q4H PRN IM For Anxiety 06/27/18 19:00 07/02/18 18:59 Lorazepam (Ativan 2mg/ml 1ml) 1.5 mg Q4H PRN IV For Anxiety 06/29/18 15:30 07/06/18 15:29 Magnesium Hydroxide (Mom) 30 ml 3XW PRN ORAL Constipation 06/27/18 18:45 07/27/18 18:44 Magnesium Oxide (Mag-Ox 400mg) 400 mg THREE TIMES A DAY ORAL 06/28/18 09:00 07/27/18 17:59 06/29/18 13:32 Metformin HCl (Glucophage) 500 mg TID ORAL 06/28/18 09:00 07/28/18 08:59 06/29/18 13:32 Morphine Sulfate (Morphine Sulfate) 4 mg Q4H PRN IVP For Pain 06/28/18 19:00 07/05/18 18:59 06/29/18 13:32 Nicotine (Nicoderm) 1 patch Q24H TDERMAL 06/28/18 10:00 07/24/18 09:59 06/29/18 09:24 Oxybutynin Chloride (Ditropan) 10 mg BID ORAL 06/28/18 09:00 07/22/18 08:59 06/29/18 09:23 Pantoprazole (Protonix) 40 mg EVERY 12 HOURS ORAL 06/27/18 21:00 07/21/18 20:59 06/29/18 09:24 Sodium Phosphate (Fleet's Sodium Phosl Enema) 133 ml QOD PRN RECTAL Constipation 06/27/18 18:45 07/27/18 18:44 06/29/18 11:15 Tizanidine HCl (Zanaflex) 2 mg Q12H PRN ORAL spasm 06/27/18 19:00 07/27/18 18:59 Trazodone HCl (Desyrel) 50 mg HSPRN PRN ORAL insomia 06/27/18 21:00 07/22/18 20:59 06/27/18 20:31 Joao Siu MD Jun 29, 2018 16:11
[2018-06-29 20:00] VITALS: BP 146/90
[2018-06-29] MEDS: Depakote 500mg tab ORAL SCH (21:12)
--- NOTE | 2018-06-29 21:46 | Psych Consult Progress Note ---
Psychiatry Progress Note Psychiatry Progress Note Medications Current Medications Medications (Trade) Dose Ordered Sig/Trevin Route PRN Reason Start Time Stop Time Status Last Admin Dose Admin Aripiprazole (Abilify) 20 mg DAILY ORAL 06/29/18 09:00 07/29/18 08:59 06/29/18 09:24 Dextrose (Dextrose 50%) 25 ml Q30M PRN IV Hypoglycemia 06/27/18 18:45 07/21/18 06:44 Dextrose (Dextrose 50%) 50 ml Q30M PRN IV Hypoglycemia 06/27/18 18:45 07/21/18 06:44 Divalproex Sodium (Depakote) 500 mg EVERY 12 HOURS ORAL 06/29/18 21:00 07/29/18 20:59 06/29/18 21:12 Docusate Sodium (Colace) 100 mg DAILY ORAL 06/28/18 09:00 07/28/18 08:59 06/29/18 09:24 Fenofibrate (Tricor) 145 mg DAILY ORAL 06/28/18 09:00 07/22/18 14:29 06/29/18 09:24 Gabapentin (Neurontin) 100 mg BID ORAL 06/28/18 09:00 07/21/18 08:59 06/29/18 17:34 Heparin Sodium (Porcine) (Heparin 5000 units/ml) 5,000 units EVERY 12 HOURS SUBQ 06/27/18 21:00 07/21/18 08:59 06/29/18 21:13 Hydromorphone HCl (Dilaudid) 4 mg Q4H PRN ORAL Severe Pain (Pain Scale 7-10) 06/28/18 22:15 07/05/18 22:14 Insulin Aspart (NovoLOG) BEFORE MEALS AND HS SUBQ 06/27/18 21:00 07/27/18 20:59 06/29/18 17:37 Insulin Aspart (NovoLOG) 15 units NOVOTIAC SUBQ 06/29/18 11:50 07/21/18 06:44 06/29/18 17:36 Insulin Detemir (Levemir) 35 units BID SUBQ 06/29/18 09:00 07/21/18 08:59 06/29/18 17:35 Lactulose (Cephulac) 30 gm THREE TIMES A DAY ORAL 06/28/18 09:00 07/21/18 08:59 06/29/18 13:32 Lamotrigine (LaMICtal) 50 mg DAILY ORAL 06/29/18 09:00 07/29/18 08:59 06/29/18 09:25 Lorazepam (Ativan 2mg/ml 1ml) 1 mg Q4H PRN IM For Anxiety 06/27/18 19:00 07/02/18 18:59 Lorazepam (Ativan 2mg/ml 1ml) 1.5 mg Q4H PRN IV For Anxiety 06/29/18 15:30 07/06/18 15:29 06/29/18 20:34 Magnesium Hydroxide (Mom) 30 ml 3XW PRN ORAL Constipation 06/27/18 18:45 07/27/18 18:44 Magnesium Oxide (Mag-Ox 400mg) 400 mg THREE TIMES A DAY ORAL 06/28/18 09:00 07/27/18 17:59 06/29/18 17:34 Metformin HCl (Glucophage) 500 mg TID ORAL 06/28/18 09:00 07/28/18 08:59 06/29/18 17:34 Morphine Sulfate (Morphine Sulfate) 4 mg Q4H PRN IVP For Pain 06/28/18 19:00 07/05/18 18:59 06/29/18 17:38 Nicotine (Nicoderm) 1 patch Q24H TDERMAL 06/28/18 10:00 07/24/18 09:59 06/29/18 09:24 Oxybutynin Chloride (Ditropan) 10 mg BID ORAL 06/28/18 09:00 07/22/18 08:59 06/29/18 17:34 Pantoprazole (Protonix) 40 mg EVERY 12 HOURS ORAL 06/27/18 21:00 07/21/18 20:59 06/29/18 21:12 Sodium Phosphate (Fleet's Sodium Phosl Enema) 133 ml QOD PRN RECTAL Constipation 06/27/18 18:45 07/27/18 18:44 06/29/18 11:15 Tizanidine HCl (Zanaflex) 2 mg Q12H PRN ORAL spasm 06/27/18 19:00 07/27/18 18:59 Trazodone HCl (Desyrel) 50 mg HSPRN PRN ORAL insomia 4/24/19 21:00 07/22/18 20:59 06/27/18 20:31 Neurological/Psychiatric: Reports: anxiety, depressed, emotional problems, weakness Allergies: Coded Allergies: CIPROFLOXACIN (Verified Allergy, Unknown, 06/14/18) HALOPERIDOL (Verified Allergy, Unknown, 06/14/18) RISPERIDONE (Verified Allergy, Unknown, 06/14/18) SENNA (Verified Allergy, Unknown, 06/14/18) Objective Data Height (Feet): 5 Height (Inches): 4.00 Weight (Pounds): 205 General Appearance: alert, agitated, overweight Appearance: no abnormalities noted Behavior Mannerisms: good eye contact Mental Status Exam - Affect: blunted Mental Status Exam - Mood: irritable, angry Speech: clear Mental Status Exam - Thought P: goal-directed Mental Status Exam - Suicidal: not present Assessment/Plan Problem List: (1) MDD (major depressive disorder), recurrent episode, moderate ICD Codes: F33.1 - Major depressive disorder, recurrent, moderate SNOMED: 79385073, 011223138 Status: stable, progressing Assessment/Plan: Abilify 10mg po qam ativan prn provided ro/Grisel Burton MD Jun 29, 2018 21:46
[2018-06-30] VITALS: BP 116/71
[2018-06-30] MEDS: LORazepam Inj 2mg/ml 1ml IV PRN ×3 (01:45→14:51)
[2018-06-30 04:00] VITALS: BP 127/70
[2018-06-30] MEDS: NovoLOG Insulin Flexpen SUBQ SCH ×7 (06:41→20:30)
--- NOTE | 2018-06-30 08:08 | General Progress Note ---
Assessment/Plan Problem List: (1) Uncontrolled diabetes mellitus ICD Codes: E11.65 - Type 2 diabetes mellitus with hyperglycemia SNOMED: 51777167, 099791965 (2) Paraplegia ICD Codes: G82.20 - Paraplegia, unspecified SNOMED: 06207126 (3) Spina bifida ICD Codes: Q05.9 - Spina bifida, unspecified SNOMED: 40286494 Status: stable, progressing Assessment/Plan: continue Levemir 35 units bid continue Novolog 15 units tid continue Metformin 500 mg tid continue NISS ac / hs Subjective Allergies: Coded Allergies: CIPROFLOXACIN (Verified Allergy, Unknown, 06/14/18) HALOPERIDOL (Verified Allergy, Unknown, 06/14/18) RISPERIDONE (Verified Allergy, Unknown, 06/14/18) SENNA (Verified Allergy, Unknown, 06/14/18) All Systems: reviewed and negative except above Subjective events noted glycemic control improved he received all the scheduled insulin and Metformin yesterday asking for his pain medication Item Value Date Time Bedside Blood Glucose 156 mg/dl H 06/30/18 0642 Bedside Blood Glucose 108 mg/dl 06/29/18 2100 Bedside Blood Glucose 156 mg/dl H 06/29/18 1737 Bedside Blood Glucose 202 mg/dl H 06/29/18 1146 Objective Last 24 Hour Vital Signs Date Time Temp Pulse Resp B/P (MAP) Pulse Ox O2 Delivery O2 Flow Rate FiO2 06/30/18 04:00 97.6 94 20 127/70 (89) 97 06/30/18 00:00 98.0 97 20 116/71 (86) 96 06/29/18 21:00 Room Air 06/29/18 20:00 97.8 102 20 146/90 (108) 96 06/29/18 18:08 98.2 06/29/18 16:00 98.0 95 19 122/79 (93) 98 06/29/18 09:00 Room Air Intake and Output 06/29/18 06/30/18 19:00 07:00 Output Total 1200 ml 800 ml Balance -1200 ml -800 ml Output Urine Total 1200 ml 800 ml # Bowel Movements 1 1 Laboratory Tests 06/29/18 10:00: White Blood Count 9.4#, Red Blood Count 4.24L, Hemoglobin 12.0L, Hematocrit 36.5L, Mean Corpuscular Volume 86, Mean Corpuscular Hemoglobin 28.3, Mean Corpuscular Hemoglobin Concent 32.9, Red Cell Distribution Width 15.0H, Platelet Count 281, Mean Platelet Volume 6.4L, Neutrophils (%) (Auto) 71.6, Lymphocytes (%) (Auto) 18.0L, Monocytes (%) (Auto) 8.3, Eosinophils (%) (Auto) 1.6, Basophils (%) (Auto) 0.6, Sodium Level 136, Potassium Level 4.2, Chloride Level 103, Carbon Dioxide Level 24, Anion Gap 9, Blood Urea Nitrogen 19H, Creatinine 0.5L, Estimat Glomerular Filtration Rate > 60, Glucose Level 201H, Calcium Level 8.5 Height (Feet): 5 Height (Inches): 4.00 Weight (Pounds): 205 General Appearance: no apparent distress Neck: normal alignment Cardiovascular: normal rate Respiratory/Chest: lungs clear Pelvis: normal external exam Extremities: other - paraplegic Edema: 1+ Arm (L), 1+ Arm (R), 1+ Leg (L), 1+ Leg (R), 1+ Pedal (L), 1+ Pedal ( R), 1+ Generalized Objective Current Medications Medications (Trade) Dose Ordered Sig/Trevin Route PRN Reason Start Time Stop Time Status Last Admin Dose Admin Aripiprazole (Abilify) 20 mg DAILY ORAL 06/29/18 09:00 07/29/18 08:59 Dextrose (Dextrose 50%) 25 ml Q30M PRN IV Hypoglycemia 06/27/18 18:45 07/21/18 06:44 Dextrose (Dextrose 50%) 50 ml Q30M PRN IV Hypoglycemia 06/27/18 18:45 07/21/18 06:44 Divalproex Sodium (Depakote) 500 mg BEDTIME ORAL 06/27/18 21:00 07/25/18 20:59 06/28/18 21:54 Docusate Sodium (Colace) 100 mg DAILY ORAL 06/28/18 09:00 07/28/18 08:59 06/28/18 09:34 Fenofibrate (Tricor) 145 mg DAILY ORAL 06/28/18 09:00 07/22/18 14:29 06/28/18 09:35 Gabapentin (Neurontin) 100 mg BID ORAL 06/28/18 09:00 07/21/18 08:59 06/28/18 09:35 Heparin Sodium (Porcine) (Heparin 5000 units/ml) 5,000 units EVERY 12 HOURS SUBQ 06/27/18 21:00 07/21/18 08:59 06/28/18 09:38 Hydromorphone HCl (Dilaudid) 4 mg Q4H PRN ORAL Severe Pain (Pain Scale 7-10) 06/28/18 22:15 07/05/18 22:14 Insulin Aspart (NovoLOG) BEFORE MEALS AND HS SUBQ 06/27/18 21:00 07/27/18 20:59 06/28/18 12:53 Insulin Aspart (NovoLOG) 23 units NOVOTIAC SUBQ 06/28/18 06:30 07/21/18 06:44 06/28/18 18:26 Insulin Detemir (Levemir) 40 units BID SUBQ 06/28/18 09:00 07/21/18 08:59 06/28/18 19:07 Lactulose (Cephulac) 30 gm THREE TIMES A DAY ORAL 06/28/18 09:00 07/21/18 08:59 Lamotrigine (LaMICtal) 50 mg DAILY ORAL 06/29/18 09:00 07/29/18 08:59 Lorazepam (Ativan 2mg/ml 1ml) 1 mg Q4H PRN IM For Anxiety 06/27/18 19:00 07/02/18 18:59 Lorazepam (Ativan 2mg/ml 1ml) 1 mg Q4H PRN IV For Anxiety 06/27/18 19:00 07/02/18 18:59 06/29/18 01:56 Magnesium Hydroxide (Mom) 30 ml 3XW PRN ORAL Constipation 06/27/18 18:45 07/27/18 18:44 Magnesium Oxide (Mag-Ox 400mg) 400 mg THREE TIMES A DAY ORAL 06/28/18 09:00 07/27/18 17:59 06/28/18 13:48 Metformin HCl (Glucophage) 500 mg TID ORAL 06/28/18 09:00 07/28/18 08:59 06/28/18 13:47 Morphine Sulfate (Morphine Sulfate) 4 mg Q4H PRN IVP For Pain 06/28/18 19:00 07/05/18 18:59 06/29/18 03:12 Nicotine (Nicoderm) 1 patch Q24H TDERMAL 06/28/18 10:00 07/24/18 09:59 06/28/18 09:39 Oxybutynin Chloride (Ditropan) 10 mg BID ORAL 06/28/18 09:00 07/22/18 08:59 06/28/18 09:45 Pantoprazole (Protonix) 40 mg EVERY 12 HOURS ORAL 06/27/18 21:00 07/21/18 20:59 06/28/18 21:54 Sodium Phosphate (Fleet's Sodium Phosl Enema) 133 ml QOD PRN RECTAL Constipation 06/27/18 18:45 07/27/18 18:44 Tizanidine HCl (Zanaflex) 2 mg Q12H PRN ORAL spasm 06/27/18 19:00 07/27/18 18:59 Trazodone HCl (Desyrel) 50 mg HSPRN PRN ORAL insomia 06/27/18 21:00 07/22/18 20:59 06/27/18 20:31 Arden Rossi MD Jun 30, 2018 08:08
[2018-06-30 08:10] VITALS: BP 124/71
[2018-06-30] MEDS: Levemir Flexpen SUBQ SCH ×2 (08:38→17:17)
[2018-06-30] MEDS: Morphine Sulfate 4mg/ml Inj (IV USE ONLY) IVP PRN ×3 (08:39→20:17)
[2018-06-30] MEDS: Oxybutynin 5mg tab ORAL SCH ×2 (08:43→17:17)
[2018-06-30] MEDS: metFORMIN 500mg tab ORAL SCH ×3 (08:43→17:26)
[2018-06-30] MEDS: Magnesium Oxide 400mg tab ORAL SCH ×3 (08:45→17:17)
[2018-06-30] MEDS: Docusate 100mg cap ORAL SCH (08:46)
--- NOTE | 2018-06-30 08:47 | General Progress Note ---
Assessment/Plan Problem List: (1) Multiple sclerosis ICD Codes: G35 - Multiple sclerosis SNOMED: 68002168 (2) Dehydration ICD Codes: E86.0 - Dehydration SNOMED: 39633529 (3) Weak ICD Codes: R53.1 - Weakness SNOMED: 54829160 Status: stable, progressing Assessment/Plan: pt diet dc plan snf if all clear Subjective Constitutional: Reports: weakness Allergies: Coded Allergies: CIPROFLOXACIN (Verified Allergy, Unknown, 06/14/18) HALOPERIDOL (Verified Allergy, Unknown, 06/14/18) RISPERIDONE (Verified Allergy, Unknown, 06/14/18) SENNA (Verified Allergy, Unknown, 06/14/18) All Systems: reviewed and negative except above Subjective sleeping calm Objective Last 24 Hour Vital Signs Date Time Temp Pulse Resp B/P (MAP) Pulse Ox O2 Delivery O2 Flow Rate FiO2 06/30/18 08:30 Room Air 06/30/18 08:10 98.2 82 20 124/71 (88) 97 06/30/18 04:00 97.6 94 20 127/70 (89) 97 06/30/18 00:00 98.0 97 20 116/71 (86) 96 06/29/18 21:00 Room Air 06/29/18 20:00 97.8 102 20 146/90 (108) 96 06/29/18 18:08 98.2 06/29/18 16:00 98.0 95 19 122/79 (93) 98 06/29/18 09:00 Room Air Intake and Output 06/29/18 06/30/18 19:00 07:00 Output Total 1200 ml 800 ml Balance -1200 ml -800 ml Output Urine Total 1200 ml 800 ml # Bowel Movements 1 1 Laboratory Tests 06/29/18 10:00: White Blood Count 9.4#, Red Blood Count 4.24L, Hemoglobin 12.0L, Hematocrit 36.5L, Mean Corpuscular Volume 86, Mean Corpuscular Hemoglobin 28.3, Mean Corpuscular Hemoglobin Concent 32.9, Red Cell Distribution Width 15.0H, Platelet Count 281, Mean Platelet Volume 6.4L, Neutrophils (%) (Auto) 71.6, Lymphocytes (%) (Auto) 18.0L, Monocytes (%) (Auto) 8.3, Eosinophils (%) (Auto) 1.6, Basophils (%) (Auto) 0.6, Sodium Level 136, Potassium Level 4.2, Chloride Level 103, Carbon Dioxide Level 24, Anion Gap 9, Blood Urea Nitrogen 19H, Creatinine 0.5L, Estimat Glomerular Filtration Rate > 60, Glucose Level 201H, Calcium Level 8.5 Height (Feet): 5 Height (Inches): 4.00 Weight (Pounds): 205 General Appearance: lethargic EENT: normal ENT inspection Neck: normal alignment Cardiovascular: normal peripheral pulses, normal rate, regular rhythm Respiratory/Chest: chest wall non-tender, lungs clear, normal breath sounds Abdomen: normal bowel sounds, non tender, soft Extremities: normal inspection Edema: no edema noted Arm (L), no edema noted Arm (R), no edema noted Leg (L), no edema noted Leg (R), no edema noted Pedal (L), no edema noted Pedal (R), no edema noted Generalized Neurologic: motor weakness Skin: normal pigmentation, warm/dry Srini Cox DO Jun 30, 2018 08:47
[2018-06-30] MEDS: Lactulose 20gm/30ml UDC ORAL SCH ×3 (08:51→17:20)
[2018-06-30] MEDS: ARIPiprazole 10mg tab ORAL SCH (08:51)
[2018-06-30] MEDS: Heparin 5000 units/ml inj SUBQ SCH ×2 (08:52→20:47)
[2018-06-30] MEDS: Depakote 500mg tab ORAL SCH ×2 (08:52→20:29)
--- NOTE | 2018-06-30 11:08 | Pulmonology Progress Note ---
Assessment/Plan Problems: (1) Hyperkalemia (2) Hyponatremia (3) Sepsis (4) Uncontrolled diabetes mellitus (5) Spina bifida (6) Limited mobility in bed (7) Chronic suprapubic catheter (8) Paraplegia (9) Diabetes mellitus Assessment/Plan wants his methadone reinstated eating well check electrolytes iv fluids check cultures f/u ID recommendations pain management increase Methadone to 15 Q8 dvt prophylaxis. med/surg pt doesn't want to go back to [place] Subjective ROS Limited/Unobtainable: No Allergies: Coded Allergies: CIPROFLOXACIN (Verified Allergy, Unknown, 06/14/18) HALOPERIDOL (Verified Allergy, Unknown, 06/14/18) RISPERIDONE (Verified Allergy, Unknown, 06/14/18) SENNA (Verified Allergy, Unknown, 06/14/18) Objective Last 24 Hour Vital Signs Date Time Temp Pulse Resp B/P (MAP) Pulse Ox O2 Delivery O2 Flow Rate FiO2 06/30/18 08:30 Room Air 06/30/18 08:10 98.2 82 20 124/71 (88) 97 06/30/18 04:00 97.6 94 20 127/70 (89) 97 06/30/18 00:00 98.0 97 20 116/71 (86) 96 06/29/18 21:00 Room Air 06/29/18 20:00 97.8 102 20 146/90 (108) 96 06/29/18 18:08 98.2 06/29/18 16:00 98.0 95 19 122/79 (93) 98 Intake and Output 06/29/18 06/30/18 19:00 07:00 Output Total 1200 ml 800 ml Balance -1200 ml -800 ml Output Urine Total 1200 ml 800 ml # Bowel Movements 1 1 Objective General Appearance: WD/WN HEENT: normocephalic, atraumatic Respiratory/Chest: chest wall non-tender, normal breath sounds Cardiovascular: normal peripheral pulses, normal rate Abdomen: normal bowel sounds, soft, non tender, no organomegaly, non distended Extremities: no cyanosis Skin: no rash, no lesions, no ulcers Current Medications Medications (Trade) Dose Ordered Sig/Trevin Route PRN Reason Start Time Stop Time Status Last Admin Dose Admin Aripiprazole (Abilify) 20 mg DAILY ORAL 06/29/18 09:00 07/29/18 08:59 06/29/18 09:24 Dextrose (Dextrose 50%) 25 ml Q30M PRN IV Hypoglycemia 06/27/18 18:45 07/21/18 06:44 Dextrose (Dextrose 50%) 50 ml Q30M PRN IV Hypoglycemia 06/27/18 18:45 07/21/18 06:44 Divalproex Sodium (Depakote) 500 mg EVERY 12 HOURS ORAL 06/29/18 21:00 07/29/18 20:59 06/29/18 21:12 Docusate Sodium (Colace) 100 mg DAILY ORAL 06/28/18 09:00 07/28/18 08:59 06/30/18 08:46 Fenofibrate (Tricor) 145 mg DAILY ORAL 06/28/18 09:00 07/22/18 14:29 06/30/18 08:46 Gabapentin (Neurontin) 100 mg BID ORAL 06/28/18 09:00 07/21/18 08:59 06/30/18 08:46 Heparin Sodium (Porcine) (Heparin 5000 units/ml) 5,000 units EVERY 12 HOURS SUBQ 06/27/18 21:00 07/21/18 08:59 06/29/18 21:13 Hydromorphone HCl (Dilaudid) 4 mg Q4H PRN ORAL Severe Pain (Pain Scale 7-10) 06/28/18 22:15 07/05/18 22:14 Insulin Aspart (NovoLOG) BEFORE MEALS AND HS SUBQ 06/27/18 21:00 07/27/18 20:59 06/30/18 06:42 Insulin Aspart (NovoLOG) 15 units NOVOTIAC SUBQ 06/29/18 11:50 07/21/18 06:44 06/30/18 06:41 Insulin Detemir (Levemir) 35 units BID SUBQ 06/29/18 09:00 07/21/18 08:59 06/29/18 17:35 Lactulose (Cephulac) 30 gm THREE TIMES A DAY ORAL 06/28/18 09:00 07/21/18 08:59 06/29/18 13:32 Lamotrigine (LaMICtal) 50 mg DAILY ORAL 06/29/18 09:00 07/29/18 08:59 06/30/18 08:45 Lorazepam (Ativan 2mg/ml 1ml) 1 mg Q4H PRN IM For Anxiety 06/27/18 19:00 07/02/18 18:59 Lorazepam (Ativan 2mg/ml 1ml) 1.5 mg Q4H PRN IV For Anxiety 06/29/18 15:30 07/06/18 15:29 06/30/18 10:33 Magnesium Hydroxide (Mom) 30 ml 3XW PRN ORAL Constipation 06/27/18 18:45 07/27/18 18:44 Magnesium Oxide (Mag-Ox 400mg) 400 mg THREE TIMES A DAY ORAL 06/28/18 09:00 07/27/18 17:59 06/30/18 08:45 Metformin HCl (Glucophage) 500 mg TID ORAL 06/28/18 09:00 07/28/18 08:59 06/30/18 08:43 Methadone HCl (Methadone HCl) 15 mg EVERY 8 HOURS PRN ORAL for moderate pain 06/30/18 11:00 07/07/18 10:59 Morphine Sulfate (Morphine Sulfate) 4 mg Q4H PRN IVP severe pain 06/30/18 11:15 07/05/18 18:59 Nicotine (Nicoderm) 1 patch Q24H TDERMAL 06/28/18 10:00 07/24/18 09:59 06/30/18 10:28 Oxybutynin Chloride (Ditropan) 10 mg BID ORAL 06/28/18 09:00 07/22/18 08:59 06/30/18 08:43 Pantoprazole (Protonix) 40 mg EVERY 12 HOURS ORAL 06/27/18 21:00 07/21/18 20:59 06/30/18 08:45 Sodium Phosphate (Fleet's Sodium Phosl Enema) 133 ml QOD PRN RECTAL Constipation 06/27/18 18:45 07/27/18 18:44 06/29/18 11:15 Tizanidine HCl (Zanaflex) 2 mg Q12H PRN ORAL spasm 06/27/18 19:00 07/27/18 18:59 Trazodone HCl (Desyrel) 50 mg HSPRN PRN ORAL insomia 06/27/18 21:00 07/22/18 20:59 06/27/18 20:31 Joao Siu MD Jun 30, 2018 11:08
[2018-06-30 11:47] VITALS: BP 138/75
--- NOTE | 2018-06-30 13:12 | Surgery Progress Note ---
Surgery Progress Note Subjective Additional Comments no acute events. stable. no complaints. Objective Last 24 Hour Vital Signs Date Time Temp Pulse Resp B/P (MAP) Pulse Ox O2 Delivery O2 Flow Rate FiO2 06/30/18 11:47 98.5 110 20 138/75 (96) 95 06/30/18 08:30 Room Air 06/30/18 08:10 98.2 82 20 124/71 (88) 97 06/30/18 04:00 97.6 94 20 127/70 (89) 97 06/30/18 00:00 98.0 97 20 116/71 (86) 96 06/29/18 21:00 Room Air 06/29/18 20:00 97.8 102 20 146/90 (108) 96 06/29/18 18:08 98.2 06/29/18 16:00 98.0 95 19 122/79 (93) 98 I&O Intake and Output 06/29/18 06/30/18 19:00 07:00 Output Total 1200 ml 800 ml Balance -1200 ml -800 ml Output Urine Total 1200 ml 800 ml # Bowel Movements 1 1 Cardiovascular: RSR Respiratory: clear Abdomen: soft, distended, non-tender, present bowel sounds Extremities: no cyanosis Plan Problems: (1) Abnormal urogenital findings (2) Paraplegia (3) Spina bifida (4) Diabetes mellitus Assessment & Plan: DAILY ESTIMATED NEEDS: Needs based on Quadriplegia, wound 65.5kg adj 23-28 kcals/kg 7736-7642 total kcals 1.25-1.5 g protein/kg 82-98 g total protein 25-30 mL/kg 8440-4245 total fluid mLs NUTRITION DIAGNOSIS: 1) Increased protein needs r/t wound healing and h/o quadriplegia as evidenced by pt w/ h/o stage 3 ischial wound and resolving sacral wound. 2) Altered nutrition related lab values r/t diabetes as evidenced by elev BG (633, 395) and elev POC, Uglu 4+ on adm. CURRENT DIET:[facility] MED PO DIET RECOMMENDATIONS: DIET CHANGE-> -> CCHO LOW W/ DOUBLE PROTEIN PORTIONS ADDITIONAL RECOMMENDATIONS: 1) Wound care: add JIM BID + VIT C 250mg BID + MVI x1 daily 2) Check A1C 3) RE-calibrate bed scale for accurate CWB 4) F/up w/ WC eval (5) Limited mobility in bed (6) Sepsis (7) Uncontrolled diabetes mellitus (8) Abdominal distension Assessment & Plan: stable as compared to prior exam continue with bowel regimen KUB noted will follow with serial exam and recs d/c planning okay to discharge from surgical standpoint thank you (9) Decubitus skin ulcer Assessment & Plan: Pt presented on admission with multiple partial thickness pressure injuries secondary to shearing R,L Buttocks ,Scrotum and both ischial regions. Moisture related intertrigo noted to L groin and abd panus.All affected areas cleansed with Soap and water .Triad Paste applied to affected areas including pressure areas on buttocks and both ischail areas. Tx.plan: Apply Triad paste to abd fols, Both groin,Scrotum and Buttocks with each perineal care. Reposition At least every 2hours or as tolerated. Off-Load heels with Pillow. (10) Intractable back pain Endy De La Rosa Jun 30, 2018 13:12
--- NOTE | 2018-06-30 15:29 | Nephrology Progress Note ---
Assessment/Plan Problem List: (1) Hyponatremia (2) Diabetes mellitus Assessment: OOC (3) Sepsis (4) Paraplegia (5) High blood triglycerides Assessment high K , due to hemolysis HypoNatremia due to High Glucose / hyperglycemia Uncontrolled Dm UTI ? Sepsis ? suprepubic cath, High lactic level Spina bifida / Paraplegia Limited mobility MS Plan PO Mag Oxide BS control Urine culture 3% saline as needed tricor for high Trigs Monitor lytes per orders urine cultures Subjective ROS Limited/Unobtainable: No Constitutional: Reports: malaise, weakness Objective Objective Last 24 Hour Vital Signs Date Time Temp Pulse Resp B/P (MAP) Pulse Ox O2 Delivery O2 Flow Rate FiO2 06/30/18 11:47 98.5 110 20 138/75 (96) 95 06/30/18 08:30 Room Air 06/30/18 08:10 98.2 82 20 124/71 (88) 97 06/30/18 04:00 97.6 94 20 127/70 (89) 97 06/30/18 00:00 98.0 97 20 116/71 (86) 96 06/29/18 21:00 Room Air 06/29/18 20:00 97.8 102 20 146/90 (108) 96 06/29/18 18:08 98.2 06/29/18 16:00 98.0 95 19 122/79 (93) 98 Intake and Output 06/29/18 06/30/18 19:00 07:00 Output Total 1200 ml 800 ml Balance -1200 ml -800 ml Output Urine Total 1200 ml 800 ml # Bowel Movements 1 1 Height (Feet): 5 Height (Inches): 4.00 Weight (Pounds): 205 General Appearance: no apparent distress Cardiovascular: tachycardia Respiratory/Chest: decreased breath sounds Abdomen: distended Objective no change Elvin Robles MD Jun 30, 2018 15:29
[2018-06-30 16:00] VITALS: BP 131/42
[2018-06-30] MEDS: LORazepam Inj 2mg/ml 1ml IM PRN (19:50)
[2018-06-30 20:00] VITALS: BP 141/93
--- NOTE | 2018-06-30 22:24 | Psych Consult Progress Note ---
Psychiatry Progress Note Psychiatry Progress Note Medications Current Medications Medications (Trade) Dose Ordered Sig/Trevin Route PRN Reason Start Time Stop Time Status Last Admin Dose Admin Aripiprazole (Abilify) 20 mg DAILY ORAL 06/29/18 09:00 07/29/18 08:59 06/29/18 09:24 Dextrose (Dextrose 50%) 25 ml Q30M PRN IV Hypoglycemia 06/27/18 18:45 07/21/18 06:44 Dextrose (Dextrose 50%) 50 ml Q30M PRN IV Hypoglycemia 06/27/18 18:45 07/21/18 06:44 Divalproex Sodium (Depakote) 500 mg EVERY 12 HOURS ORAL 06/29/18 21:00 07/29/18 20:59 06/30/18 20:29 Docusate Sodium (Colace) 100 mg DAILY ORAL 06/28/18 09:00 07/28/18 08:59 06/30/18 08:46 Fenofibrate (Tricor) 145 mg DAILY ORAL 06/28/18 09:00 07/22/18 14:29 06/30/18 08:46 Gabapentin (Neurontin) 100 mg BID ORAL 06/28/18 09:00 07/21/18 08:59 06/30/18 17:17 Heparin Sodium (Porcine) (Heparin 5000 units/ml) 5,000 units EVERY 12 HOURS SUBQ 06/27/18 21:00 07/21/18 08:59 06/30/18 20:47 Hydromorphone HCl (Dilaudid) 4 mg Q4H PRN ORAL Severe Pain (Pain Scale 7-10) 06/28/18 22:15 07/05/18 22:14 06/30/18 17:19 Insulin Aspart (NovoLOG) BEFORE MEALS AND HS SUBQ 06/27/18 21:00 07/27/18 20:59 06/30/18 17:23 Insulin Aspart (NovoLOG) 15 units NOVOTIAC SUBQ 06/29/18 11:50 07/21/18 06:44 06/30/18 17:22 Insulin Detemir (Levemir) 35 units BID SUBQ 06/29/18 09:00 07/21/18 08:59 06/29/18 17:35 Lactulose (Cephulac) 30 gm THREE TIMES A DAY ORAL 06/28/18 09:00 07/21/18 08:59 06/29/18 13:32 Lamotrigine (LaMICtal) 50 mg DAILY ORAL 06/29/18 09:00 07/29/18 08:59 06/30/18 08:45 Lorazepam (Ativan 2mg/ml 1ml) 1 mg Q4H PRN IM For Anxiety 06/27/18 19:00 07/02/18 18:59 06/30/18 19:50 Lorazepam (Ativan 2mg/ml 1ml) 1.5 mg Q4H PRN IV For Anxiety 06/29/18 15:30 07/06/18 15:29 06/30/18 14:51 Magnesium Hydroxide (Mom) 30 ml 3XW PRN ORAL Constipation 06/27/18 18:45 07/27/18 18:44 Magnesium Oxide (Mag-Ox 400mg) 400 mg THREE TIMES A DAY ORAL 06/28/18 09:00 07/27/18 17:59 06/30/18 17:17 Metformin HCl (Glucophage) 500 mg TID ORAL 06/28/18 09:00 07/28/18 08:59 06/30/18 17:26 Methadone HCl (Methadone HCl) 15 mg EVERY 8 HOURS PRN ORAL for moderate pain 06/30/18 11:00 07/07/18 10:59 06/30/18 11:18 Morphine Sulfate (Morphine Sulfate) 4 mg Q4H PRN IVP severe pain 06/30/18 11:15 07/05/18 18:59 06/30/18 20:17 Nicotine (Nicoderm) 1 patch Q24H TDERMAL 06/28/18 10:00 07/24/18 09:59 06/30/18 10:28 Oxybutynin Chloride (Ditropan) 10 mg BID ORAL 06/28/18 09:00 07/22/18 08:59 06/30/18 17:17 Pantoprazole (Protonix) 40 mg EVERY 12 HOURS ORAL 06/27/18 21:00 07/21/18 20:59 06/30/18 20:30 Sodium Phosphate (Fleet's Sodium Phosl Enema) 133 ml QOD PRN RECTAL Constipation 06/27/18 18:45 07/27/18 18:44 06/29/18 11:15 Tizanidine HCl (Zanaflex) 2 mg Q12H PRN ORAL spasm 06/27/18 19:00 07/27/18 18:59 Trazodone HCl (Desyrel) 50 mg HSPRN PRN ORAL insomia 06/27/18 21:00 07/22/18 20:59 06/27/18 20:31 Neurological/Psychiatric: Reports: anxiety, depressed, emotional problems, weakness Allergies: Coded Allergies: CIPROFLOXACIN (Verified Allergy, Unknown, 06/14/18) HALOPERIDOL (Verified Allergy, Unknown, 06/14/18) RISPERIDONE (Verified Allergy, Unknown, 06/14/18) SENNA (Verified Allergy, Unknown, 06/14/18) Objective Data Height (Feet): 5 Height (Inches): 4.00 Weight (Pounds): 205 General Appearance: WD/WN, no apparent distress, alert, agitated Appearance: no abnormalities noted Behavior Mannerisms: good eye contact Mental Status Exam - Affect: blunted Mental Status Exam - Mood: irritable, angry Speech: clear Mental Status Exam - Thought P: no abnormalities Mental Status Exam - Suicidal: not present Assessment/Plan Problem List: (1) MDD (major depressive disorder), recurrent episode, moderate ICD Codes: F33.1 - Major depressive disorder, recurrent, moderate SNOMED: 02000222, 867093399 Status: stable, progressing Assessment/Plan: Abilify 10mg po qam ativan prn provided jose/Grisel Burton MD Jun 30, 2018 22:24
[2018-07-01] VITALS: BP 148/77
[2018-07-01] MEDS: Morphine Sulfate 4mg/ml Inj (IV USE ONLY) IVP PRN ×5 (00:31→17:20)
[2018-07-01] MEDS: LORazepam Inj 2mg/ml 1ml IV PRN ×4 (03:38→16:00)
[2018-07-01 04:00] VITALS: BP 120/79
[2018-07-01] MEDS: NovoLOG Insulin Flexpen SUBQ SCH ×7 (05:57→20:55)
--- NOTE | 2018-07-01 07:46 | General Progress Note ---
Assessment/Plan Problem List: (1) Uncontrolled diabetes mellitus ICD Codes: E11.65 - Type 2 diabetes mellitus with hyperglycemia SNOMED: 80769155, 415376023 (2) Paraplegia ICD Codes: G82.20 - Paraplegia, unspecified SNOMED: 08381419 (3) Spina bifida ICD Codes: Q05.9 - Spina bifida, unspecified SNOMED: 36236629 Status: stable, progressing Assessment/Plan: continue Levemir 35 units bid continue Novolog 15 units tid continue Metformin 500 mg tid continue NISS ac / hs Subjective Allergies: Coded Allergies: CIPROFLOXACIN (Verified Allergy, Unknown, 06/14/18) HALOPERIDOL (Verified Allergy, Unknown, 06/14/18) RISPERIDONE (Verified Allergy, Unknown, 06/14/18) SENNA (Verified Allergy, Unknown, 06/14/18) Subjective events noted glycemic control improved Item Value Date Time Bedside Blood Glucose 179 mg/dl H 07/01/18 0622 Bedside Blood Glucose 128 mg/dl H 06/30/18 2100 Bedside Blood Glucose 186 mg/dl H 06/30/18 1723 Bedside Blood Glucose 211 mg/dl H 06/30/18 1126 Objective Last 24 Hour Vital Signs Date Time Temp Pulse Resp B/P (MAP) Pulse Ox O2 Delivery O2 Flow Rate FiO2 07/01/18 04:00 97.7 100 19 120/79 (93) 96 07/01/18 00:00 98.5 94 20 148/77 (100) 93 06/30/18 21:00 Room Air 06/30/18 20:00 98.7 116 20 141/93 (109) 100 06/30/18 17:04 99 06/30/18 16:00 98.0 116 20 131/42 (71) 95 06/30/18 11:47 98.5 110 20 138/75 (96) 95 06/30/18 08:30 Room Air 06/30/18 08:10 98.2 82 20 124/71 (88) 97 Intake and Output 06/30/18 07/01/18 19:00 07:00 Intake Total 240 ml 300 ml Output Total 1900 ml 800 ml Balance -1660 ml -500 ml Intake Oral 240 ml 300 ml Output Urine Total 1900 ml 800 ml Height (Feet): 5 Height (Inches): 4.00 Weight (Pounds): 205 General Appearance: no apparent distress Neck: normal alignment Cardiovascular: normal rate Respiratory/Chest: lungs clear Abdomen: normal bowel sounds Objective Current Medications Medications (Trade) Dose Ordered Sig/Trevin Route PRN Reason Start Time Stop Time Status Last Admin Dose Admin Aripiprazole (Abilify) 20 mg DAILY ORAL 06/29/18 09:00 07/29/18 08:59 06/29/18 09:24 Dextrose (Dextrose 50%) 25 ml Q30M PRN IV Hypoglycemia 06/27/18 18:45 07/21/18 06:44 Dextrose (Dextrose 50%) 50 ml Q30M PRN IV Hypoglycemia 06/27/18 18:45 07/21/18 06:44 Divalproex Sodium (Depakote) 500 mg EVERY 12 HOURS ORAL 06/29/18 21:00 07/29/18 20:59 06/30/18 20:29 Docusate Sodium (Colace) 100 mg DAILY ORAL 06/28/18 09:00 07/28/18 08:59 06/30/18 08:46 Fenofibrate (Tricor) 145 mg DAILY ORAL 06/28/18 09:00 07/22/18 14:29 06/30/18 08:46 Gabapentin (Neurontin) 100 mg BID ORAL 06/28/18 09:00 07/21/18 08:59 06/30/18 17:17 Heparin Sodium (Porcine) (Heparin 5000 units/ml) 5,000 units EVERY 12 HOURS SUBQ 06/27/18 21:00 07/21/18 08:59 06/30/18 20:47 Hydromorphone HCl (Dilaudid) 4 mg Q4H PRN ORAL Severe Pain (Pain Scale 7-10) 06/28/18 22:15 07/05/18 22:14 06/30/18 17:19 Insulin Aspart (NovoLOG) BEFORE MEALS AND HS SUBQ 06/27/18 21:00 07/27/18 20:59 07/01/18 05:57 Insulin Aspart (NovoLOG) 15 units NOVOTIAC SUBQ 06/29/18 11:50 07/21/18 06:44 06/30/18 17:22 Insulin Detemir (Levemir) 35 units BID SUBQ 06/29/18 09:00 07/21/18 08:59 06/29/18 17:35 Lactulose (Cephulac) 30 gm THREE TIMES A DAY ORAL 06/28/18 09:00 07/21/18 08:59 06/29/18 13:32 Lamotrigine (LaMICtal) 50 mg DAILY ORAL 06/29/18 09:00 07/29/18 08:59 06/30/18 08:45 Lorazepam (Ativan 2mg/ml 1ml) 1 mg Q4H PRN IM For Anxiety 06/27/18 19:00 07/02/18 18:59 06/30/18 19:50 Lorazepam (Ativan 2mg/ml 1ml) 1.5 mg Q4H PRN IV For Anxiety 06/29/18 15:30 07/06/18 15:29 07/01/18 07:42 Magnesium Hydroxide (Mom) 30 ml 3XW PRN ORAL Constipation 06/27/18 18:45 07/27/18 18:44 Magnesium Oxide (Mag-Ox 400mg) 400 mg THREE TIMES A DAY ORAL 06/28/18 09:00 07/27/18 17:59 06/30/18 17:17 Metformin HCl (Glucophage) 500 mg TID ORAL 06/28/18 09:00 07/28/18 08:59 06/30/18 17:26 Methadone HCl (Methadone HCl) 15 mg EVERY 8 HOURS PRN ORAL for moderate pain 06/30/18 11:00 07/07/18 10:59 06/30/18 11:18 Morphine Sulfate (Morphine Sulfate) 4 mg Q4H PRN IVP severe pain 06/30/18 11:15 07/05/18 18:59 07/01/18 04:32 Nicotine (Nicoderm) 1 patch Q24H TDERMAL 06/28/18 10:00 07/24/18 09:59 06/30/18 10:28 Oxybutynin Chloride (Ditropan) 10 mg BID ORAL 06/28/18 09:00 07/22/18 08:59 06/30/18 17:17 Pantoprazole (Protonix) 40 mg EVERY 12 HOURS ORAL 06/27/18 21:00 07/21/18 20:59 06/30/18 20:30 Sodium Phosphate (Fleet's Sodium Phosl Enema) 133 ml QOD PRN RECTAL Constipation 06/27/18 18:45 07/27/18 18:44 06/29/18 11:15 Tizanidine HCl (Zanaflex) 2 mg Q12H PRN ORAL spasm 06/27/18 19:00 07/27/18 18:59 Trazodone HCl (Desyrel) 50 mg HSPRN PRN ORAL insomia 06/27/18 21:00 07/22/18 20:59 06/27/18 20:31 Arden Rossi MD Jul 01, 2018 07:46
[2018-07-01 08:00] VITALS: BP 117/80
[2018-07-01] MEDS: ARIPiprazole 10mg tab ORAL SCH (09:00)
[2018-07-01] MEDS: Levemir Flexpen SUBQ SCH ×2 (09:00→18:00)
[2018-07-01] MEDS: Depakote 500mg tab ORAL SCH ×3 (09:00→21:02)
[2018-07-01] MEDS: metFORMIN 500mg tab ORAL SCH ×3 (09:15→17:20)
[2018-07-01] MEDS: Oxybutynin 5mg tab ORAL SCH ×2 (09:16→17:19)
[2018-07-01] MEDS: Lactulose 20gm/30ml UDC ORAL SCH ×3 (09:17→17:19)
[2018-07-01] MEDS: Magnesium Oxide 400mg tab ORAL SCH ×3 (09:17→17:20)
[2018-07-01] MEDS: Heparin 5000 units/ml inj SUBQ SCH ×2 (09:17→20:58)
[2018-07-01] MEDS: Docusate 100mg cap ORAL SCH (09:19)
--- NOTE | 2018-07-01 09:20 | General Progress Note ---
Assessment/Plan Problem List: (1) Multiple sclerosis ICD Codes: G35 - Multiple sclerosis SNOMED: 49754715 (2) Dehydration ICD Codes: E86.0 - Dehydration SNOMED: 86660334 (3) Weak ICD Codes: R53.1 - Weakness SNOMED: 03030079 Status: stable, progressing Assessment/Plan: pt diet cbc bmp am dc plan snf if all clear Subjective Constitutional: Reports: weakness Allergies: Coded Allergies: CIPROFLOXACIN (Verified Allergy, Unknown, 06/14/18) HALOPERIDOL (Verified Allergy, Unknown, 06/14/18) RISPERIDONE (Verified Allergy, Unknown, 06/14/18) SENNA (Verified Allergy, Unknown, 06/14/18) All Systems: reviewed and negative except above Subjective sleeping calm Objective Last 24 Hour Vital Signs Date Time Temp Pulse Resp B/P (MAP) Pulse Ox O2 Delivery O2 Flow Rate FiO2 07/01/18 04:00 97.7 100 19 120/79 (93) 96 07/01/18 00:00 98.5 94 20 148/77 (100) 93 06/30/18 21:00 Room Air 06/30/18 20:00 98.7 116 20 141/93 (109) 100 06/30/18 17:04 99 06/30/18 16:00 98.0 116 20 131/42 (71) 95 06/30/18 11:47 98.5 110 20 138/75 (96) 95 Intake and Output 06/30/18 07/01/18 19:00 07:00 Intake Total 240 ml 300 ml Output Total 1900 ml 800 ml Balance -1660 ml -500 ml Intake Oral 240 ml 300 ml Output Urine Total 1900 ml 800 ml Height (Feet): 5 Height (Inches): 4.00 Weight (Pounds): 205 General Appearance: lethargic EENT: normal ENT inspection Neck: normal alignment Cardiovascular: normal peripheral pulses, normal rate, regular rhythm Respiratory/Chest: chest wall non-tender, lungs clear, normal breath sounds Abdomen: normal bowel sounds, non tender, soft Extremities: normal inspection Edema: no edema noted Arm (L), no edema noted Arm (R), no edema noted Leg (L), no edema noted Leg (R), no edema noted Pedal (L), no edema noted Pedal (R), no edema noted Generalized Neurologic: motor weakness Skin: normal pigmentation, warm/dry Cox,Srini Chi-Michelle DO Jul 01, 2018 09:19
--- NOTE | 2018-07-01 10:52 | Infectious Diseases Prog Note ---
Assessment/Plan Assessment/Plan IMPRESSION: 1. Positive blood culture with Staph epidermidis likely contamination 2. urinary tract infection 3. schizophrenia, noncompliance with medication, 4.diabetes mellitus, 5.chronic pain, 6.spina bifida, 7.chronic obstructive pulmonary disease, 8. s/p suprapubic catheter. 9. ESBL E. coli colonization 10.Major depression, refuses medications RECOMMENDATION: Patient refuses antibiotics Observe off antibiotic Subjective ROS Limited/Unobtainable: No Constitutional: Reports: no symptoms Psychiatric: Reports: depression Musculoskeletal: Reports: pain, other - in back Allergies: Coded Allergies: CIPROFLOXACIN (Verified Allergy, Unknown, 06/14/18) HALOPERIDOL (Verified Allergy, Unknown, 06/14/18) RISPERIDONE (Verified Allergy, Unknown, 06/14/18) SENNA (Verified Allergy, Unknown, 06/14/18) Objective Vital Signs Last 24 Hour Vital Signs Date Time Temp Pulse Resp B/P (MAP) Pulse Ox O2 Delivery O2 Flow Rate FiO2 07/01/18 10:26 Room Air 07/01/18 09:42 97.7 07/01/18 08:00 98.7 101 20 117/80 (92) 97 07/01/18 04:00 97.7 100 19 120/79 (93) 96 07/01/18 00:00 98.5 94 20 148/77 (100) 93 06/30/18 21:00 Room Air 06/30/18 20:00 98.7 116 20 141/93 (109) 100 06/30/18 17:04 99 06/30/18 16:00 98.0 116 20 131/42 (71) 95 06/30/18 11:47 98.5 110 20 138/75 (96) 95 Height (Feet): 5 Height (Inches): 4.00 Weight (Pounds): 205 General Appearance: no acute distress HEENT: mucous membranes moist Respiratory/Chest: lungs clear Cardiovascular: normal rate Abdomen: soft, non tender Genitourinary: other - suprapubic pain Neurologic/Psychiatric: alert, responsive, other - paraplegic Current Medications Medications (Trade) Dose Ordered Sig/Trevin Route PRN Reason Start Time Stop Time Status Last Admin Dose Admin Aripiprazole (Abilify) 20 mg DAILY ORAL 06/29/18 09:00 07/29/18 08:59 06/29/18 09:24 Dextrose (Dextrose 50%) 25 ml Q30M PRN IV Hypoglycemia 06/27/18 18:45 07/21/18 06:44 Dextrose (Dextrose 50%) 50 ml Q30M PRN IV Hypoglycemia 06/27/18 18:45 07/21/18 06:44 Divalproex Sodium (Depakote) 500 mg EVERY 12 HOURS ORAL 06/29/18 21:00 07/29/18 20:59 06/30/18 20:29 Docusate Sodium (Colace) 100 mg DAILY ORAL 06/28/18 09:00 07/28/18 08:59 07/01/18 09:19 Fenofibrate (Tricor) 145 mg DAILY ORAL 06/28/18 09:00 07/22/18 14:29 06/30/18 08:46 Gabapentin (Neurontin) 100 mg BID ORAL 06/28/18 09:00 07/21/18 08:59 07/01/18 09:19 Heparin Sodium (Porcine) (Heparin 5000 units/ml) 5,000 units EVERY 12 HOURS SUBQ 06/27/18 21:00 07/21/18 08:59 07/01/18 09:17 Hydromorphone HCl (Dilaudid) 4 mg Q4H PRN ORAL Severe Pain (Pain Scale 7-10) 06/28/18 22:15 07/05/18 22:14 06/30/18 17:19 Insulin Aspart (NovoLOG) BEFORE MEALS AND HS SUBQ 06/27/18 21:00 07/27/18 20:59 07/01/18 05:57 Insulin Aspart (NovoLOG) 15 units NOVOTIAC SUBQ 06/29/18 11:50 07/21/18 06:44 06/30/18 17:22 Insulin Detemir (Levemir) 35 units BID SUBQ 06/29/18 09:00 07/21/18 08:59 06/29/18 17:35 Lactulose (Cephulac) 30 gm THREE TIMES A DAY ORAL 06/28/18 09:00 07/21/18 08:59 07/01/18 09:17 Lamotrigine (LaMICtal) 50 mg DAILY ORAL 06/29/18 09:00 07/29/18 08:59 06/30/18 08:45 Lorazepam (Ativan 2mg/ml 1ml) 1 mg Q4H PRN IM For Anxiety 06/27/18 19:00 07/02/18 18:59 06/30/18 19:50 Lorazepam (Ativan 2mg/ml 1ml) 1.5 mg Q4H PRN IV For Anxiety 06/29/18 15:30 07/06/18 15:29 07/01/18 07:42 Magnesium Hydroxide (Mom) 30 ml 3XW PRN ORAL Constipation 06/27/18 18:45 07/27/18 18:44 Magnesium Oxide (Mag-Ox 400mg) 400 mg THREE TIMES A DAY ORAL 06/28/18 09:00 07/27/18 17:59 07/01/18 09:17 Metformin HCl (Glucophage) 500 mg TID ORAL 06/28/18 09:00 07/28/18 08:59 07/01/18 09:15 Methadone HCl (Methadone HCl) 15 mg EVERY 8 HOURS PRN ORAL for moderate pain 06/30/18 11:00 07/07/18 10:59 06/30/18 11:18 Morphine Sulfate (Morphine Sulfate) 4 mg Q4H PRN IVP severe pain 06/30/18 11:15 07/05/18 18:59 07/01/18 09:12 Nicotine (Nicoderm) 1 patch Q24H TDERMAL 06/28/18 10:00 07/24/18 09:59 07/01/18 09:18 Oxybutynin Chloride (Ditropan) 10 mg BID ORAL 06/28/18 09:00 07/22/18 08:59 07/01/18 09:16 Pantoprazole (Protonix) 40 mg EVERY 12 HOURS ORAL 06/27/18 21:00 07/21/18 20:59 07/01/18 09:15 Sodium Phosphate (Fleet's Sodium Phosl Enema) 133 ml QOD PRN RECTAL Constipation 06/27/18 18:45 07/27/18 18:44 06/29/18 11:15 Tizanidine HCl (Zanaflex) 2 mg Q12H PRN ORAL spasm 06/27/18 19:00 07/27/18 18:59 Trazodone HCl (Desyrel) 50 mg HSPRN PRN ORAL insomia 06/27/18 21:00 07/22/18 20:59 06/27/18 20:31 Daniel Murcia MD Jul 01, 2018 10:52
[2018-07-01 12:00] VITALS: BP 138/88
--- NOTE | 2018-07-01 13:15 | Surgery Progress Note ---
Surgery Progress Note Subjective Additional Comments no acute events. resting comfortable. no n/v/f/c. tolerating diet Objective Last 24 Hour Vital Signs Date Time Temp Pulse Resp B/P (MAP) Pulse Ox O2 Delivery O2 Flow Rate FiO2 07/01/18 12:00 98.2 107 20 138/88 (105) 98 07/01/18 10:26 Room Air 07/01/18 09:42 97.7 07/01/18 08:00 98.7 101 20 117/80 (92) 97 07/01/18 04:00 97.7 100 19 120/79 (93) 96 07/01/18 00:00 98.5 94 20 148/77 (100) 93 06/30/18 21:00 Room Air 06/30/18 20:00 98.7 116 20 141/93 (109) 100 06/30/18 17:04 99 06/30/18 16:00 98.0 116 20 131/42 (71) 95 I&O Intake and Output 06/30/18 07/01/18 19:00 07:00 Intake Total 240 ml 300 ml Output Total 1900 ml 800 ml Balance -1660 ml -500 ml Intake Oral 240 ml 300 ml Output Urine Total 1900 ml 800 ml Drains: none Cardiovascular: RSR Respiratory: clear Abdomen: soft, distended, non-tender, present bowel sounds Extremities: no tenderness, no cyanosis Plan Problems: (1) Abnormal urogenital findings (2) Paraplegia (3) Spina bifida (4) Diabetes mellitus Assessment & Plan: DAILY ESTIMATED NEEDS: Needs based on Quadriplegia, wound 65.5kg adj 23-28 kcals/kg 1551-8700 total kcals 1.25-1.5 g protein/kg 82-98 g total protein 25-30 mL/kg 9157-6052 total fluid mLs NUTRITION DIAGNOSIS: 1) Increased protein needs r/t wound healing and h/o quadriplegia as evidenced by pt w/ h/o stage 3 ischial wound and resolving sacral wound. 2) Altered nutrition related lab values r/t diabetes as evidenced by elev BG (633, 395) and elev POC, Uglu 4+ on adm. CURRENT DIET:[facility] MED PO DIET RECOMMENDATIONS: DIET CHANGE-> -> CCHO LOW W/ DOUBLE PROTEIN PORTIONS ADDITIONAL RECOMMENDATIONS: 1) Wound care: add JIM BID + VIT C 250mg BID + MVI x1 daily 2) Check A1C 3) RE-calibrate bed scale for accurate CWB 4) F/up w/ WC eval (5) Limited mobility in bed (6) Sepsis (7) Uncontrolled diabetes mellitus (8) Abdominal distension Assessment & Plan: stable as compared to prior exam continue with bowel regimen KUB noted will follow with serial exam and recs d/c planning okay to discharge from surgical standpoint thank you (9) Decubitus skin ulcer Assessment & Plan: Pt presented on admission with multiple partial thickness pressure injuries secondary to shearing R,L Buttocks ,Scrotum and both ischial regions. Moisture related intertrigo noted to L groin and abd panus.All affected areas cleansed with Soap and water .Triad Paste applied to affected areas including pressure areas on buttocks and both ischail areas. Tx.plan: Apply Triad paste to abd fols, Both groin,Scrotum and Buttocks with each perineal care. Reposition At least every 2hours or as tolerated. Off-Load heels with Pillow. (10) Intractable back pain Endy De La Rosa Jul 01, 2018 13:15
--- NOTE | 2018-07-01 14:41 | Pulmonology Progress Note ---
Assessment/Plan Problems: (1) Hyperkalemia (2) Hyponatremia (3) Sepsis (4) Uncontrolled diabetes mellitus (5) Spina bifida (6) Limited mobility in bed (7) Chronic suprapubic catheter (8) Paraplegia (9) Diabetes mellitus Assessment/Plan wants his methadone reinstated eating well check electrolytes iv fluids check cultures f/u ID recommendations pain management increase Methadone to 15 Q8 dvt prophylaxis. med/surg pt doesn't want to go back to [place] Subjective ROS Limited/Unobtainable: No Constitutional: Reports: no symptoms HEENT: Repors: no symptoms Allergies: Coded Allergies: CIPROFLOXACIN (Verified Allergy, Unknown, 06/14/18) HALOPERIDOL (Verified Allergy, Unknown, 06/14/18) RISPERIDONE (Verified Allergy, Unknown, 06/14/18) SENNA (Verified Allergy, Unknown, 06/14/18) Objective Last 24 Hour Vital Signs Date Time Temp Pulse Resp B/P (MAP) Pulse Ox O2 Delivery O2 Flow Rate FiO2 07/01/18 13:47 98.2 07/01/18 12:00 98.2 107 20 138/88 (105) 98 07/01/18 10:26 Room Air 07/01/18 08:00 98.7 101 20 117/80 (92) 97 07/01/18 04:00 97.7 100 19 120/79 (93) 96 07/01/18 00:00 98.5 94 20 148/77 (100) 93 06/30/18 21:00 Room Air 06/30/18 20:00 98.7 116 20 141/93 (109) 100 06/30/18 17:04 99 06/30/18 16:00 98.0 116 20 131/42 (71) 95 Intake and Output 06/30/18 07/01/18 19:00 07:00 Intake Total 240 ml 300 ml Output Total 1900 ml 800 ml Balance -1660 ml -500 ml Intake Oral 240 ml 300 ml Output Urine Total 1900 ml 800 ml Objective General Appearance: WD/WN HEENT: normocephalic, atraumatic Respiratory/Chest: chest wall non-tender, normal breath sounds Cardiovascular: normal peripheral pulses, normal rate Abdomen: normal bowel sounds, soft, non tender, no organomegaly, non distended Extremities: no cyanosis Skin: no rash, no lesions, no ulcers Current Medications Medications (Trade) Dose Ordered Sig/Trevin Route PRN Reason Start Time Stop Time Status Last Admin Dose Admin Aripiprazole (Abilify) 20 mg DAILY ORAL 06/29/18 09:00 07/29/18 08:59 06/29/18 09:24 Dextrose (Dextrose 50%) 25 ml Q30M PRN IV Hypoglycemia 06/27/18 18:45 07/21/18 06:44 Dextrose (Dextrose 50%) 50 ml Q30M PRN IV Hypoglycemia 06/27/18 18:45 07/21/18 06:44 Divalproex Sodium (Depakote) 500 mg EVERY 12 HOURS ORAL 06/29/18 21:00 07/29/18 20:59 06/30/18 20:29 Docusate Sodium (Colace) 100 mg DAILY ORAL 06/28/18 09:00 07/28/18 08:59 07/01/18 09:19 Fenofibrate (Tricor) 145 mg DAILY ORAL 06/28/18 09:00 07/22/18 14:29 06/30/18 08:46 Gabapentin (Neurontin) 100 mg BID ORAL 06/28/18 09:00 07/21/18 08:59 07/01/18 09:19 Heparin Sodium (Porcine) (Heparin 5000 units/ml) 5,000 units EVERY 12 HOURS SUBQ 06/27/18 21:00 07/21/18 08:59 07/01/18 09:17 Hydromorphone HCl (Dilaudid) 4 mg Q4H PRN ORAL Severe Pain (Pain Scale 7-10) 06/28/18 22:15 07/05/18 22:14 06/30/18 17:19 Insulin Aspart (NovoLOG) BEFORE MEALS AND HS SUBQ 06/27/18 21:00 07/27/18 20:59 07/01/18 11:47 Insulin Aspart (NovoLOG) 15 units NOVOTIAC SUBQ 06/29/18 11:50 07/21/18 06:44 06/30/18 17:22 Insulin Detemir (Levemir) 35 units BID SUBQ 06/29/18 09:00 07/21/18 08:59 06/29/18 17:35 Lactulose (Cephulac) 30 gm THREE TIMES A DAY ORAL 06/28/18 09:00 07/21/18 08:59 07/01/18 09:17 Lamotrigine (LaMICtal) 50 mg DAILY ORAL 06/29/18 09:00 07/29/18 08:59 06/30/18 08:45 Lorazepam (Ativan 2mg/ml 1ml) 1 mg Q4H PRN IM For Anxiety 06/27/18 19:00 07/02/18 18:59 06/30/18 19:50 Lorazepam (Ativan 2mg/ml 1ml) 1.5 mg Q4H PRN IV For Anxiety 06/29/18 15:30 07/06/18 15:29 07/01/18 11:46 Magnesium Hydroxide (Mom) 30 ml 3XW PRN ORAL Constipation 06/27/18 18:45 07/27/18 18:44 Magnesium Oxide (Mag-Ox 400mg) 400 mg THREE TIMES A DAY ORAL 06/28/18 09:00 07/27/18 17:59 07/01/18 13:17 Metformin HCl (Glucophage) 500 mg TID ORAL 06/28/18 09:00 07/28/18 08:59 07/01/18 13:17 Methadone HCl (Methadone HCl) 15 mg EVERY 8 HOURS PRN ORAL for moderate pain 06/30/18 11:00 07/07/18 10:59 06/30/18 11:18 Morphine Sulfate (Morphine Sulfate) 4 mg Q4H PRN IVP severe pain 06/30/18 11:15 07/05/18 18:59 07/01/18 13:17 Nicotine (Nicoderm) 1 patch Q24H TDERMAL 06/28/18 10:00 07/24/18 09:59 07/01/18 09:18 Oxybutynin Chloride (Ditropan) 10 mg BID ORAL 06/28/18 09:00 07/22/18 08:59 07/01/18 09:16 Pantoprazole (Protonix) 40 mg EVERY 12 HOURS ORAL 06/27/18 21:00 07/21/18 20:59 07/01/18 09:15 Sodium Phosphate (Fleet's Sodium Phosl Enema) 133 ml QOD PRN RECTAL Constipation 06/27/18 18:45 07/27/18 18:44 06/29/18 11:15 Tizanidine HCl (Zanaflex) 2 mg Q12H PRN ORAL spasm 06/27/18 19:00 07/27/18 18:59 Trazodone HCl (Desyrel) 50 mg HSPRN PRN ORAL insomia 06/27/18 21:00 07/22/18 20:59 06/27/18 20:31 Joao Siu MD Jul 01, 2018 14:41
[2018-07-01 16:00] VITALS: BP 134/92
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
--- NOTE | 2018-07-01 17:20 | Nephrology Progress Note ---
Assessment/Plan Problem List: (1) Hyponatremia (2) Diabetes mellitus Assessment: OOC (3) Sepsis Assessment: UTI (4) Paraplegia (5) High blood triglycerides Assessment high K , due to hemolysis HypoNatremia due to High Glucose / hyperglycemia Uncontrolled Dm UTI ? Sepsis ? suprepubic cath, High lactic level Spina bifida / Paraplegia Limited mobility MS Plan ABx per ID PO Mag Oxide BS control Urine culture 3% saline as needed tricor for high Trigs Monitor lytes per orders urine cultures noted Subjective ROS Limited/Unobtainable: No Constitutional: Reports: malaise Objective Objective Last 24 Hour Vital Signs Date Time Temp Pulse Resp B/P (MAP) Pulse Ox O2 Delivery O2 Flow Rate FiO2 07/01/18 16:00 97.2 107 20 134/92 (106) 98 07/01/18 13:47 98.2 07/01/18 12:00 98.2 107 20 138/88 (105) 98 07/01/18 10:26 Room Air 07/01/18 08:00 98.7 101 20 117/80 (92) 97 07/01/18 04:00 97.7 100 19 120/79 (93) 96 07/01/18 00:00 98.5 94 20 148/77 (100) 93 06/30/18 21:00 Room Air 06/30/18 20:00 98.7 116 20 141/93 (109) 100 Intake and Output 06/30/18 07/01/18 18:59 06:59 Intake Total 240 ml 300 ml Output Total 1900 ml 800 ml Balance -1660 ml -500 ml Intake Oral 240 ml 300 ml Output Urine Total 1900 ml 800 ml Height (Feet): 5 Height (Inches): 4.00 Weight (Pounds): 205 General Appearance: no apparent distress Cardiovascular: normal rate Respiratory/Chest: lungs clear Abdomen: soft Objective no change Elvin Robles MD Jul 01, 2018 17:19
[2018-07-01 20:00] VITALS: BP 113/85
[2018-07-01] MEDS: LORazepam Inj 2mg/ml 1ml IM PRN (21:22)
[2018-07-02] VITALS: BP 114/73
[2018-07-02] MEDS: Morphine Sulfate 4mg/ml Inj (IV USE ONLY) IVP PRN ×5 (03:29→23:06)
[2018-07-02 04:00] VITALS: BP 111/74
[2018-07-02] MEDS: NovoLOG Insulin Flexpen SUBQ SCH ×7 (06:28→21:26)
--- NOTE | 2018-07-02 06:44 | General Progress Note ---
Assessment/Plan Problem List: (1) Uncontrolled diabetes mellitus ICD Codes: E11.65 - Type 2 diabetes mellitus with hyperglycemia SNOMED: 09236538, 166177330 (2) Paraplegia ICD Codes: G82.20 - Paraplegia, unspecified SNOMED: 55535523 (3) Spina bifida ICD Codes: Q05.9 - Spina bifida, unspecified SNOMED: 96695741 Status: stable, progressing Assessment/Plan: reduce Levemir to 20 units bid reduce Novolog to 10 units ac tid continue Metformin 500 mg tid continue NISS ac / hs Subjective Allergies: Coded Allergies: CIPROFLOXACIN (Verified Allergy, Unknown, 06/14/18) HALOPERIDOL (Verified Allergy, Unknown, 06/14/18) RISPERIDONE (Verified Allergy, Unknown, 06/14/18) SENNA (Verified Allergy, Unknown, 06/14/18) All Systems: reviewed and negative except above Subjective events noted Item Value Date Time Bedside Blood Glucose 159 mg/dl H 07/02/18 0629 Bedside Blood Glucose 159 mg/dl H 07/01/18 2100 Bedside Blood Glucose 197 mg/dl H 07/01/18 1800 Bedside Blood Glucose 176 mg/dl H 07/01/18 1150 Bedside Blood Glucose 179 mg/dl H 07/01/18 0622 Objective Last 24 Hour Vital Signs Date Time Temp Pulse Resp B/P (MAP) Pulse Ox O2 Delivery O2 Flow Rate FiO2 07/02/18 04:00 97.8 97 18 111/74 (86) 96 07/02/18 03:59 97.9 07/02/18 00:00 97.9 18 114/73 (87) 97 07/01/18 21:00 Room Air 07/01/18 20:00 97.1 102 18 113/85 (94) 96 07/01/18 16:00 97.2 107 20 134/92 (106) 98 07/01/18 12:00 98.2 107 20 138/88 (105) 98 07/01/18 10:26 Room Air 07/01/18 08:00 98.7 101 20 117/80 (92) 97 Intake and Output 07/01/18 07/02/18 18:59 06:59 Intake Total 390 ml 300 ml Output Total 800 ml 1200 ml Balance -410 ml -900 ml Intake Oral 390 ml 300 ml Output Urine Total 800 ml 1200 ml Height (Feet): 5 Height (Inches): 4.00 Weight (Pounds): 205 General Appearance: no apparent distress Neck: normal alignment Cardiovascular: normal rate Respiratory/Chest: decreased breath sounds Abdomen: normal bowel sounds Edema: 1+ Arm (L), 1+ Arm (R), 1+ Leg (L), 1+ Leg (R), 1+ Pedal (L), 1+ Pedal ( R), 1+ Generalized Objective Current Medications Medications (Trade) Dose Ordered Sig/Trevin Route PRN Reason Start Time Stop Time Status Last Admin Dose Admin Aripiprazole (Abilify) 20 mg DAILY ORAL 06/29/18 09:00 07/29/18 08:59 06/29/18 09:24 Dextrose (Dextrose 50%) 25 ml Q30M PRN IV Hypoglycemia 06/27/18 18:45 07/21/18 06:44 Dextrose (Dextrose 50%) 50 ml Q30M PRN IV Hypoglycemia 06/27/18 18:45 07/21/18 06:44 Divalproex Sodium (Depakote) 500 mg EVERY 12 HOURS ORAL 06/29/18 21:00 07/29/18 20:59 06/30/18 20:29 Docusate Sodium (Colace) 100 mg DAILY ORAL 06/28/18 09:00 07/28/18 08:59 07/01/18 09:19 Fenofibrate (Tricor) 145 mg DAILY ORAL 06/28/18 09:00 07/22/18 14:29 06/30/18 08:46 Gabapentin (Neurontin) 100 mg BID ORAL 06/28/18 09:00 07/21/18 08:59 07/01/18 17:20 Heparin Sodium (Porcine) (Heparin 5000 units/ml) 5,000 units EVERY 12 HOURS SUBQ 06/27/18 21:00 07/21/18 08:59 07/01/18 20:58 Hydromorphone HCl (Dilaudid) 4 mg Q4H PRN ORAL Severe Pain (Pain Scale 7-10) 06/28/18 22:15 07/05/18 22:14 06/30/18 17:19 Insulin Aspart (NovoLOG) BEFORE MEALS AND HS SUBQ 06/27/18 21:00 07/27/18 20:59 07/02/18 06:29 Insulin Aspart (NovoLOG) 15 units NOVOTIAC SUBQ 06/29/18 11:50 07/21/18 06:44 07/02/18 06:28 Insulin Detemir (Levemir) 35 units BID SUBQ 06/29/18 09:00 07/21/18 08:59 06/29/18 17:35 Lactulose (Cephulac) 30 gm THREE TIMES A DAY ORAL 06/28/18 09:00 07/21/18 08:59 07/01/18 09:17 Lamotrigine (LaMICtal) 50 mg DAILY ORAL 06/29/18 09:00 07/29/18 08:59 06/30/18 08:45 Lorazepam (Ativan 2mg/ml 1ml) 1 mg Q4H PRN IM For Anxiety 06/27/18 19:00 07/02/18 18:59 07/01/18 21:22 Lorazepam (Ativan 2mg/ml 1ml) 1.5 mg Q4H PRN IV For Anxiety 06/29/18 15:30 07/06/18 15:29 07/01/18 16:00 Magnesium Hydroxide (Mom) 30 ml 3XW PRN ORAL Constipation 06/27/18 18:45 07/27/18 18:44 Magnesium Oxide (Mag-Ox 400mg) 400 mg THREE TIMES A DAY ORAL 06/28/18 09:00 07/27/18 17:59 07/01/18 17:20 Metformin HCl (Glucophage) 500 mg TID ORAL 06/28/18 09:00 07/28/18 08:59 07/01/18 17:20 Methadone HCl (Methadone HCl) 15 mg EVERY 8 HOURS PRN ORAL for moderate pain 06/30/18 11:00 07/07/18 10:59 06/30/18 11:18 Morphine Sulfate (Morphine Sulfate) 4 mg Q4H PRN IVP severe pain 06/30/18 11:15 07/05/18 18:59 07/02/18 03:29 Nicotine (Nicoderm) 1 patch Q24H TDERMAL 06/28/18 10:00 07/24/18 09:59 07/01/18 09:18 Oxybutynin Chloride (Ditropan) 10 mg BID ORAL 06/28/18 09:00 07/22/18 08:59 07/01/18 17:19 Pantoprazole (Protonix) 40 mg EVERY 12 HOURS ORAL 06/27/18 21:00 07/21/18 20:59 07/01/18 21:02 Sodium Phosphate (Fleet's Sodium Phosl Enema) 133 ml QOD PRN RECTAL Constipation 06/27/18 18:45 07/27/18 18:44 06/29/18 11:15 Tizanidine HCl (Zanaflex) 2 mg Q12H PRN ORAL spasm 06/27/18 19:00 07/27/18 18:59 Trazodone HCl (Desyrel) 50 mg HSPRN PRN ORAL insomia 06/27/18 21:00 07/22/18 20:59 06/27/18 20:31 Arden Rossi MD Jul 02, 2018 06:44
[2018-07-02 08:00] VITALS: BP 119/82
[2018-07-02] MEDS: Depakote 500mg tab ORAL SCH ×2 (09:00→21:00)
[2018-07-02] MEDS: ARIPiprazole 10mg tab ORAL SCH (09:00)
[2018-07-02] MEDS: Levemir Flexpen SUBQ SCH ×2 (09:00→18:45)
--- NOTE | 2018-07-02 09:21 | General Progress Note ---
Assessment/Plan Problem List: (1) Multiple sclerosis ICD Codes: G35 - Multiple sclerosis SNOMED: 44339599 (2) Dehydration ICD Codes: E86.0 - Dehydration SNOMED: 47787134 (3) Weak ICD Codes: R53.1 - Weakness SNOMED: 69319862 Status: stable, progressing Assessment/Plan: pt diet cbc bmp am dc plan snf if all clear Subjective Constitutional: Reports: weakness Allergies: Coded Allergies: CIPROFLOXACIN (Verified Allergy, Unknown, 06/14/18) HALOPERIDOL (Verified Allergy, Unknown, 06/14/18) RISPERIDONE (Verified Allergy, Unknown, 06/14/18) SENNA (Verified Allergy, Unknown, 06/14/18) All Systems: reviewed and negative except above Subjective sleeping calm Objective Last 24 Hour Vital Signs Date Time Temp Pulse Resp B/P (MAP) Pulse Ox O2 Delivery O2 Flow Rate FiO2 07/02/18 04:00 97.8 97 18 111/74 (86) 96 07/02/18 03:59 97.9 07/02/18 00:00 97.9 18 114/73 (87) 97 07/01/18 21:00 Room Air 07/01/18 20:00 97.1 102 18 113/85 (94) 96 07/01/18 16:00 97.2 107 20 134/92 (106) 98 07/01/18 12:00 98.2 107 20 138/88 (105) 98 07/01/18 10:26 Room Air Intake and Output 07/01/18 07/02/18 18:59 06:59 Intake Total 390 ml 450 ml Output Total 800 ml 1200 ml Balance -410 ml -750 ml Intake Oral 390 ml 450 ml Output Urine Total 800 ml 1200 ml Height (Feet): 5 Height (Inches): 4.00 Weight (Pounds): 205 General Appearance: lethargic EENT: normal ENT inspection Neck: normal alignment Cardiovascular: normal peripheral pulses, normal rate, regular rhythm Respiratory/Chest: chest wall non-tender, lungs clear, normal breath sounds Abdomen: normal bowel sounds, non tender, soft Extremities: normal inspection Edema: no edema noted Arm (L), no edema noted Arm (R), no edema noted Leg (L), no edema noted Leg (R), no edema noted Pedal (L), no edema noted Pedal (R), no edema noted Generalized Neurologic: motor weakness Skin: normal pigmentation, warm/dry Sirni Cox DO Jul 02, 2018 09:21
[2018-07-02] MEDS: Docusate 100mg cap ORAL SCH (09:52)
[2018-07-02] MEDS: Oxybutynin 5mg tab ORAL SCH ×2 (09:52→17:08)
[2018-07-02] MEDS: metFORMIN 500mg tab ORAL SCH ×3 (09:52→17:08)
[2018-07-02] MEDS: Magnesium Oxide 400mg tab ORAL SCH ×3 (09:52→17:08)
[2018-07-02] MEDS: Heparin 5000 units/ml inj SUBQ SCH ×2 (09:53→21:27)
[2018-07-02] MEDS: Lactulose 20gm/30ml UDC ORAL SCH ×3 (09:53→17:08)
[2018-07-02 10:30] LABS: BASOPHILS % (AUTO) 0.8 % (0.0-2.0); EOSINOPHILS % (AUTO) 1.9 % (0.0-3.0); HEMATOCRIT 40.7 % (42.0-52.0); HEMOGLOBIN 13.1 G/DL (14.2-18.0); LYMPHOCYTES % (AUTO) 19.8 % (20.0-45.0); MEAN CORPUSCULAR VOLUME 86 FL (80-99); MONOCYTES % (AUTO) 8.7 % (1.0-10.0); NEUTROPHILS % (AUTO) 68.8 % (45.0-75.0); PLATELET COUNT 267 K/UL (150-450); RED BLOOD COUNT 4.75 M/UL (4.70-6.10); RED CELL DISTRIBUTION WIDTH 15.1 % (11.6-14.8)
[2018-07-02 10:53] LABS: ANION GAP 10 mmol/L (5-15); BLOOD UREA NITROGEN 13 mg/dL (7-18); CALCIUM 8.6 MG/DL (8.5-10.1); CARBON DIOXIDE 26 MMOL/L (21-32); CHLORIDE 100 MMOL/L (98-107); CREATININE 0.3 MG/DL (0.55-1.30); POTASSIUM 4.7 MMOL/L (3.5-5.1); SODIUM 136 MMOL/L (136-145)
--- NOTE | 2018-07-02 11:24 | Nephrology Progress Note ---
Assessment/Plan Problem List: (1) Hyponatremia (2) Diabetes mellitus Assessment: OOC (3) Sepsis Assessment: UTI (4) Paraplegia (5) High blood triglycerides Assessment high K , due to hemolysis HypoNatremia due to High Glucose / hyperglycemia Uncontrolled Dm UTI ? Sepsis ? suprepubic cath, High lactic level Spina bifida / Paraplegia Limited mobility MS Plan ABx per ID PO Mag Oxide BS control Urine culture 3% saline as needed tricor for high Trigs Monitor lytes per orders urine cultures noted Subjective ROS Limited/Unobtainable: No Objective Objective Last 24 Hour Vital Signs Date Time Temp Pulse Resp B/P (MAP) Pulse Ox O2 Delivery O2 Flow Rate FiO2 07/02/18 10:24 97.8 07/02/18 09:00 Room Air 07/02/18 08:00 97.8 97 18 119/82 (94) 96 07/02/18 04:00 97.8 97 18 111/74 (86) 96 07/02/18 00:00 97.9 18 114/73 (87) 97 07/01/18 21:00 Room Air 07/01/18 20:00 97.1 102 18 113/85 (94) 96 07/01/18 16:00 97.2 107 20 134/92 (106) 98 07/01/18 12:00 98.2 107 20 138/88 (105) 98 Intake and Output 07/01/18 07/02/18 19:00 07:00 Intake Total 390 ml 450 ml Output Total 800 ml 1200 ml Balance -410 ml -750 ml Intake Oral 390 ml 450 ml Output Urine Total 800 ml 1200 ml Laboratory Tests 07/02/18 10:20: White Blood Count 7.0, Red Blood Count 4.75, Hemoglobin 13.1L, Hematocrit 40.7L , Mean Corpuscular Volume 86, Mean Corpuscular Hemoglobin 27.7, Mean Corpuscular Hemoglobin Concent 32.3, Red Cell Distribution Width 15.1H, Platelet Count 267, Mean Platelet Volume 6.2L, Neutrophils (%) (Auto) 68.8, Lymphocytes (%) (Auto) 19.8L, Monocytes (%) (Auto) 8.7, Eosinophils (%) (Auto) 1.9, Basophils (%) (Auto) 0.8, Sodium Level 136, Potassium Level 4.7, Chloride Level 100, Carbon Dioxide Level 26, Anion Gap 10, Blood Urea Nitrogen 13, Creatinine 0.3L, Estimat Glomerular Filtration Rate > 60, Glucose Level 217H, Calcium Level 8.6 Height (Feet): 5 Height (Inches): 4.00 Weight (Pounds): 205 General Appearance: no apparent distress Objective no change Elvin Robles MD Jul 02, 2018 11:24
[2018-07-02] MEDS: LORazepam Inj 2mg/ml 1ml IM PRN ×2 (11:36→17:08)
[2018-07-02 12:00] VITALS: BP 130/91
--- NOTE | 2018-07-02 12:20 | Pulmonology Progress Note ---
Assessment/Plan Problems: (1) Hyperkalemia (2) Hyponatremia (3) Sepsis (4) Uncontrolled diabetes mellitus (5) Spina bifida (6) Limited mobility in bed (7) Chronic suprapubic catheter (8) Paraplegia (9) Diabetes mellitus Assessment/Plan wants to leave eating well check electrolytes iv fluids check cultures f/u ID recommendations pain management increase Methadone to 15 Q8 dvt prophylaxis. med/surg pt doesn't want to go back to [place] Subjective ROS Limited/Unobtainable: No Constitutional: Reports: no symptoms HEENT: Repors: no symptoms Respiratory: Reports: no symptoms Allergies: Coded Allergies: CIPROFLOXACIN (Verified Allergy, Unknown, 06/14/18) HALOPERIDOL (Verified Allergy, Unknown, 06/14/18) RISPERIDONE (Verified Allergy, Unknown, 06/14/18) SENNA (Verified Allergy, Unknown, 06/14/18) Objective Last 24 Hour Vital Signs Date Time Temp Pulse Resp B/P (MAP) Pulse Ox O2 Delivery O2 Flow Rate FiO2 07/02/18 10:24 97.8 07/02/18 09:00 Room Air 07/02/18 08:00 97.8 97 18 119/82 (94) 96 07/02/18 04:00 97.8 97 18 111/74 (86) 96 07/02/18 00:00 97.9 18 114/73 (87) 97 07/01/18 21:00 Room Air 07/01/18 20:00 97.1 102 18 113/85 (94) 96 07/01/18 16:00 97.2 107 20 134/92 (106) 98 Intake and Output 07/01/18 07/02/18 19:00 07:00 Intake Total 390 ml 450 ml Output Total 800 ml 1200 ml Balance -410 ml -750 ml Intake Oral 390 ml 450 ml Output Urine Total 800 ml 1200 ml Objective General Appearance: WD/WN HEENT: normocephalic, atraumatic Respiratory/Chest: chest wall non-tender, normal breath sounds Cardiovascular: normal peripheral pulses, normal rate Abdomen: normal bowel sounds, soft, non tender, no organomegaly, non distended Extremities: no cyanosis Skin: no rash, no lesions, no ulcers Laboratory Tests 07/02/18 10:20: White Blood Count 7.0, Red Blood Count 4.75, Hemoglobin 13.1L, Hematocrit 40.7L , Mean Corpuscular Volume 86, Mean Corpuscular Hemoglobin 27.7, Mean Corpuscular Hemoglobin Concent 32.3, Red Cell Distribution Width 15.1H, Platelet Count 267, Mean Platelet Volume 6.2L, Neutrophils (%) (Auto) 68.8, Lymphocytes (%) (Auto) 19.8L, Monocytes (%) (Auto) 8.7, Eosinophils (%) (Auto) 1.9, Basophils (%) (Auto) 0.8, Sodium Level 136, Potassium Level 4.7, Chloride Level 100, Carbon Dioxide Level 26, Anion Gap 10, Blood Urea Nitrogen 13, Creatinine 0.3L, Estimat Glomerular Filtration Rate > 60, Glucose Level 217H, Calcium Level 8.6 Current Medications Medications (Trade) Dose Ordered Sig/Trevin Route PRN Reason Start Time Stop Time Status Last Admin Dose Admin Aripiprazole (Abilify) 20 mg DAILY ORAL 06/29/18 09:00 07/29/18 08:59 06/29/18 09:24 Dextrose (Dextrose 50%) 25 ml Q30M PRN IV Hypoglycemia 06/27/18 18:45 07/21/18 06:44 Dextrose (Dextrose 50%) 50 ml Q30M PRN IV Hypoglycemia 06/27/18 18:45 07/21/18 06:44 Divalproex Sodium (Depakote) 500 mg EVERY 12 HOURS ORAL 06/29/18 21:00 07/29/18 20:59 06/30/18 20:29 Docusate Sodium (Colace) 100 mg DAILY ORAL 06/28/18 09:00 07/28/18 08:59 07/02/18 09:52 Fenofibrate (Tricor) 145 mg DAILY ORAL 06/28/18 09:00 07/22/18 14:29 07/02/18 11:52 Gabapentin (Neurontin) 100 mg BID ORAL 06/28/18 09:00 07/21/18 08:59 07/02/18 09:52 Heparin Sodium (Porcine) (Heparin 5000 units/ml) 5,000 units EVERY 12 HOURS SUBQ 06/27/18 21:00 07/21/18 08:59 07/02/18 09:53 Hydromorphone HCl (Dilaudid) 4 mg Q4H PRN ORAL Severe Pain (Pain Scale 7-10) 06/28/18 22:15 07/05/18 22:14 06/30/18 17:19 Insulin Aspart (NovoLOG) BEFORE MEALS AND HS SUBQ 06/27/18 21:00 07/27/18 20:59 07/02/18 06:29 Insulin Aspart (NovoLOG) 10 units NOVOTIAC SUBQ 07/02/18 11:50 07/21/18 06:44 Insulin Detemir (Levemir) 20 units BID SUBQ 07/02/18 09:00 07/21/18 08:59 Lactulose (Cephulac) 30 gm THREE TIMES A DAY ORAL 06/28/18 09:00 07/21/18 08:59 07/02/18 09:53 Lamotrigine (LaMICtal) 50 mg DAILY ORAL 06/29/18 09:00 07/29/18 08:59 06/30/18 08:45 Lorazepam (Ativan 2mg/ml 1ml) 1 mg Q4H PRN IM For Anxiety 06/27/18 19:00 07/02/18 18:59 07/02/18 11:36 Lorazepam (Ativan 2mg/ml 1ml) 1.5 mg Q4H PRN IV For Anxiety 06/29/18 15:30 07/06/18 15:29 07/01/18 16:00 Magnesium Hydroxide (Mom) 30 ml 3XW PRN ORAL Constipation 06/27/18 18:45 07/27/18 18:44 Magnesium Oxide (Mag-Ox 400mg) 400 mg THREE TIMES A DAY ORAL 06/28/18 09:00 07/27/18 17:59 07/02/18 09:52 Metformin HCl (Glucophage) 500 mg TID ORAL 06/28/18 09:00 07/28/18 08:59 07/02/18 09:52 Methadone HCl (Methadone HCl) 15 mg EVERY 8 HOURS PRN ORAL for moderate pain 06/30/18 11:00 07/07/18 10:59 06/30/18 11:18 Morphine Sulfate (Morphine Sulfate) 4 mg Q4H PRN IVP severe pain 06/30/18 11:15 07/05/18 18:59 07/02/18 09:54 Nicotine (Nicoderm) 1 patch Q24H TDERMAL 06/28/18 10:00 07/24/18 09:59 07/02/18 09:53 Oxybutynin Chloride (Ditropan) 10 mg BID ORAL 06/28/18 09:00 07/22/18 08:59 07/02/18 09:52 Pantoprazole (Protonix) 40 mg EVERY 12 HOURS ORAL 06/27/18 21:00 07/21/18 20:59 07/02/18 09:52 Sodium Phosphate (Fleet's Sodium Phosl Enema) 133 ml QOD PRN RECTAL Constipation 06/27/18 18:45 07/27/18 18:44 06/29/18 11:15 Tizanidine HCl (Zanaflex) 2 mg Q12H PRN ORAL spasm 06/27/18 19:00 07/27/18 18:59 Trazodone HCl (Desyrel) 50 mg HSPRN PRN ORAL insomia 06/27/18 21:00 07/22/18 20:59 06/27/18 20:31 Joao Siu MD Jul 02, 2018 12:20
--- NOTE | 2018-07-02 12:38 | Infectious Diseases Prog Note ---
Assessment/Plan Assessment/Plan IMPRESSION: 1. Positive blood culture with Staph epidermidis likely contamination 2. urinary tract infection 3. schizophrenia, noncompliance with medication, 4.diabetes mellitus, 5.chronic pain, 6.spina bifida, 7.chronic obstructive pulmonary disease, 8. s/p suprapubic catheter. 9. ESBL E. coli colonization 10.Major depression, refuses medications RECOMMENDATION: Patient refuses antibiotics Observe off antibiotic Subjective ROS Limited/Unobtainable: Yes Psychiatric: Reports: depression Musculoskeletal: Reports: pain Allergies: Coded Allergies: CIPROFLOXACIN (Verified Allergy, Unknown, 06/14/18) HALOPERIDOL (Verified Allergy, Unknown, 06/14/18) RISPERIDONE (Verified Allergy, Unknown, 06/14/18) SENNA (Verified Allergy, Unknown, 06/14/18) Objective Vital Signs Last 24 Hour Vital Signs Date Time Temp Pulse Resp B/P (MAP) Pulse Ox O2 Delivery O2 Flow Rate FiO2 07/02/18 10:24 97.8 07/02/18 09:00 Room Air 07/02/18 08:00 97.8 97 18 119/82 (94) 96 07/02/18 04:00 97.8 97 18 111/74 (86) 96 07/02/18 00:00 97.9 18 114/73 (87) 97 07/01/18 21:00 Room Air 07/01/18 20:00 97.1 102 18 113/85 (94) 96 07/01/18 16:00 97.2 107 20 134/92 (106) 98 Height (Feet): 5 Height (Inches): 4.00 Weight (Pounds): 205 General Appearance: no acute distress HEENT: mucous membranes moist Respiratory/Chest: lungs clear Cardiovascular: normal rate Abdomen: soft, non tender Genitourinary: other - suprapubic catheter Extremities: other - mild dependent edema Neurologic/Psychiatric: alert, responsive, other - paraplegic Laboratory Tests Test 07/02/18 10:20 White Blood Count 7.0 K/UL (4.8-10.8) Red Blood Count 4.75 M/UL (4.70-6.10) Hemoglobin 13.1 G/DL (14.2-18.0) L Hematocrit 40.7 % (42.0-52.0) L Mean Corpuscular Volume 86 FL (80-99) Mean Corpuscular Hemoglobin 27.7 PG (27.0-31.0) Mean Corpuscular Hemoglobin Concent 32.3 G/DL (32.0-36.0) Red Cell Distribution Width 15.1 % (11.6-14.8) H Platelet Count 267 K/UL (150-450) Mean Platelet Volume 6.2 FL (6.5-10.1) L Neutrophils (%) (Auto) 68.8 % (45.0-75.0) Lymphocytes (%) (Auto) 19.8 % (20.0-45.0) L Monocytes (%) (Auto) 8.7 % (1.0-10.0) Eosinophils (%) (Auto) 1.9 % (0.0-3.0) Basophils (%) (Auto) 0.8 % (0.0-2.0) Sodium Level 136 MMOL/L (136-145) Potassium Level 4.7 MMOL/L (3.5-5.1) Chloride Level 100 MMOL/L (98-107) Carbon Dioxide Level 26 MMOL/L (21-32) Anion Gap 10 mmol/L (5-15) Blood Urea Nitrogen 13 mg/dL (7-18) Creatinine 0.3 MG/DL (0.55-1.30) L Estimat Glomerular Filtration Rate > 60 mL/min (>60) Glucose Level 217 MG/DL (74-106) H Calcium Level 8.6 MG/DL (8.5-10.1) Current Medications Medications (Trade) Dose Ordered Sig/Trevin Route PRN Reason Start Time Stop Time Status Last Admin Dose Admin Aripiprazole (Abilify) 20 mg DAILY ORAL 06/29/18 09:00 07/29/18 08:59 06/29/18 09:24 Dextrose (Dextrose 50%) 25 ml Q30M PRN IV Hypoglycemia 06/27/18 18:45 07/21/18 06:44 Dextrose (Dextrose 50%) 50 ml Q30M PRN IV Hypoglycemia 06/27/18 18:45 07/21/18 06:44 Divalproex Sodium (Depakote) 500 mg EVERY 12 HOURS ORAL 06/29/18 21:00 07/29/18 20:59 06/30/18 20:29 Docusate Sodium (Colace) 100 mg DAILY ORAL 06/28/18 09:00 07/28/18 08:59 07/02/18 09:52 Fenofibrate (Tricor) 145 mg DAILY ORAL 06/28/18 09:00 07/22/18 14:29 07/02/18 11:52 Gabapentin (Neurontin) 100 mg BID ORAL 06/28/18 09:00 07/21/18 08:59 07/02/18 09:52 Heparin Sodium (Porcine) (Heparin 5000 units/ml) 5,000 units EVERY 12 HOURS SUBQ 06/27/18 21:00 07/21/18 08:59 07/02/18 09:53 Hydromorphone HCl (Dilaudid) 4 mg Q4H PRN ORAL Severe Pain (Pain Scale 7-10) 06/28/18 22:15 07/05/18 22:14 06/30/18 17:19 Insulin Aspart (NovoLOG) BEFORE MEALS AND HS SUBQ 06/27/18 21:00 07/27/18 20:59 07/02/18 06:29 Insulin Aspart (NovoLOG) 10 units NOVOTIAC SUBQ 07/02/18 11:50 07/21/18 06:44 Insulin Detemir (Levemir) 20 units BID SUBQ 07/02/18 09:00 07/21/18 08:59 Lactulose (Cephulac) 30 gm THREE TIMES A DAY ORAL 06/28/18 09:00 07/21/18 08:59 07/02/18 09:53 Lamotrigine (LaMICtal) 50 mg DAILY ORAL 06/29/18 09:00 07/29/18 08:59 06/30/18 08:45 Lorazepam (Ativan 2mg/ml 1ml) 1 mg Q4H PRN IM For Anxiety 06/27/18 19:00 07/02/18 18:59 07/02/18 11:36 Lorazepam (Ativan 2mg/ml 1ml) 1.5 mg Q4H PRN IV For Anxiety 06/29/18 15:30 07/06/18 15:29 07/01/18 16:00 Magnesium Hydroxide (Mom) 30 ml 3XW PRN ORAL Constipation 06/27/18 18:45 07/27/18 18:44 Magnesium Oxide (Mag-Ox 400mg) 400 mg THREE TIMES A DAY ORAL 06/28/18 09:00 07/27/18 17:59 07/02/18 09:52 Metformin HCl (Glucophage) 500 mg TID ORAL 06/28/18 09:00 07/28/18 08:59 07/02/18 09:52 Methadone HCl (Methadone HCl) 15 mg EVERY 8 HOURS PRN ORAL for moderate pain 06/30/18 11:00 07/07/18 10:59 06/30/18 11:18 Morphine Sulfate (Morphine Sulfate) 4 mg Q4H PRN IVP severe pain 06/30/18 11:15 07/05/18 18:59 07/02/18 09:54 Nicotine (Nicoderm) 1 patch Q24H TDERMAL 06/28/18 10:00 07/24/18 09:59 07/02/18 09:53 Oxybutynin Chloride (Ditropan) 10 mg BID ORAL 06/28/18 09:00 07/22/18 08:59 07/02/18 09:52 Pantoprazole (Protonix) 40 mg EVERY 12 HOURS ORAL 06/27/18 21:00 07/21/18 20:59 07/02/18 09:52 Sodium Phosphate (Fleet's Sodium Phosl Enema) 133 ml QOD PRN RECTAL Constipation 06/27/18 18:45 07/27/18 18:44 06/29/18 11:15 Tizanidine HCl (Zanaflex) 2 mg Q12H PRN ORAL spasm 06/27/18 19:00 07/27/18 18:59 Trazodone HCl (Desyrel) 50 mg HSPRN PRN ORAL insomia 06/27/18 21:00 07/22/18 20:59 06/27/18 20:31 Daniel Murcia MD Jul 02, 2018 12:38
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
[2018-07-02 16:00] VITALS: BP 122/7
[2018-07-02 20:00] VITALS: BP 133/94
--- NOTE | 2018-07-02 20:38 | Surgery Progress Note ---
Surgery Progress Note Subjective Symptoms: improved, pain absent, tolerating diet, passing flatus, BM Objective Last 24 Hour Vital Signs Date Time Temp Pulse Resp B/P (MAP) Pulse Ox O2 Delivery O2 Flow Rate FiO2 07/02/18 19:11 98.4 07/02/18 16:00 98.4 110 18 122/7 (45) 98 07/02/18 12:00 98.6 102 18 130/91 (104) 98 07/02/18 09:00 Room Air 07/02/18 08:00 97.8 97 18 119/82 (94) 96 07/02/18 04:00 97.8 97 18 111/74 (86) 96 07/02/18 00:00 97.9 18 114/73 (87) 97 07/01/18 21:00 Room Air I&O Intake and Output 07/01/18 07/02/18 19:00 07:00 Intake Total 390 ml 450 ml Output Total 800 ml 1200 ml Balance -410 ml -750 ml Intake Oral 390 ml 450 ml Output Urine Total 800 ml 1200 ml Cardiovascular: RSR Respiratory: clear Abdomen: soft, distended, non-tender, present bowel sounds Extremities: no tenderness, no cyanosis Laboratory Tests Test 07/02/18 10:20 White Blood Count 7.0 K/UL (4.8-10.8) Red Blood Count 4.75 M/UL (4.70-6.10) Hemoglobin 13.1 G/DL (14.2-18.0) L Hematocrit 40.7 % (42.0-52.0) L Mean Corpuscular Volume 86 FL (80-99) Mean Corpuscular Hemoglobin 27.7 PG (27.0-31.0) Mean Corpuscular Hemoglobin Concent 32.3 G/DL (32.0-36.0) Red Cell Distribution Width 15.1 % (11.6-14.8) H Platelet Count 267 K/UL (150-450) Mean Platelet Volume 6.2 FL (6.5-10.1) L Neutrophils (%) (Auto) 68.8 % (45.0-75.0) Lymphocytes (%) (Auto) 19.8 % (20.0-45.0) L Monocytes (%) (Auto) 8.7 % (1.0-10.0) Eosinophils (%) (Auto) 1.9 % (0.0-3.0) Basophils (%) (Auto) 0.8 % (0.0-2.0) Sodium Level 136 MMOL/L (136-145) Potassium Level 4.7 MMOL/L (3.5-5.1) Chloride Level 100 MMOL/L (98-107) Carbon Dioxide Level 26 MMOL/L (21-32) Anion Gap 10 mmol/L (5-15) Blood Urea Nitrogen 13 mg/dL (7-18) Creatinine 0.3 MG/DL (0.55-1.30) L Estimat Glomerular Filtration Rate > 60 mL/min (>60) Glucose Level 217 MG/DL (74-106) H Calcium Level 8.6 MG/DL (8.5-10.1) Plan Problems: (1) Abnormal urogenital findings (2) Paraplegia (3) Spina bifida (4) Diabetes mellitus Assessment & Plan: DAILY ESTIMATED NEEDS: Needs based on Quadriplegia, wound 65.5kg adj 23-28 kcals/kg 0492-4626 total kcals 1.25-1.5 g protein/kg 82-98 g total protein 25-30 mL/kg 8730-5443 total fluid mLs NUTRITION DIAGNOSIS: 1) Increased protein needs r/t wound healing and h/o quadriplegia as evidenced by pt w/ h/o stage 3 ischial wound and resolving sacral wound. 2) Altered nutrition related lab values r/t diabetes as evidenced by elev BG (633, 395) and elev POC, Uglu 4+ on adm. CURRENT DIET:[facility] MED PO DIET RECOMMENDATIONS: DIET CHANGE-> -> [facility] LOW W/ DOUBLE PROTEIN PORTIONS ADDITIONAL RECOMMENDATIONS: 1) Wound care: add JIM BID + VIT C 250mg BID + MVI x1 daily 2) Check A1C 3) RE-calibrate bed scale for accurate CWB 4) F/up w/ WC eval (5) Limited mobility in bed (6) Sepsis (7) Uncontrolled diabetes mellitus (8) Abdominal distension Assessment & Plan: stable as compared to prior exam continue with bowel regimen KUB noted will follow with serial exam and recs d/c planning okay to discharge from surgical standpoint thank you (9) Decubitus skin ulcer Assessment & Plan: Pt presented on admission with multiple partial thickness pressure injuries secondary to shearing R,L Buttocks ,Scrotum and both ischial regions. Moisture related intertrigo noted to L groin and abd panus.All affected areas cleansed with Soap and water .Triad Paste applied to affected areas including pressure areas on buttocks and both ischail areas. Tx.plan: Apply Triad paste to abd fols, Both groin,Scrotum and Buttocks with each perineal care. Reposition At least every 2hours or as tolerated. Off-Load heels with Pillow. (10) Intractable back pain Endy De La Rosa Jul 02, 2018 20:38
[2018-07-02] MEDS: LORazepam Inj 2mg/ml 1ml IV PRN (21:24)
[2018-07-02] MEDS ORDERED: Simethicone 80mg tab ORAL PRN (22:30)
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
[2018-07-02] MEDS: Simethicone 80mg tab ORAL PRN (23:06)
[2018-07-02 23:50] LABS: APPEARANCE,URINE CLOUDY; BILIRUBIN, URINE NEGATIVE (NEGATIVE); COLOR,URINE PALE YELLOW; GLUCOSE, URINE (UA) NEGATIVE (NEGATIVE); KETONES,URINE 1+ (NEGATIVE); LEUKOCYTE ESTERASE ,URINE 3+ (NEGATIVE); NITRITE,URINE POSITIVE (NEGATIVE); PH,URINE 8 (4.5-8.0); PROTEIN,URINE 3+ (NEGATIVE); UROBILINOGEN,URINE NORMAL MG/DL (0.0-1.0)
[2018-07-03] VITALS: BP 130/84
[2018-07-03 04:00] VITALS: BP 138/86
[2018-07-03] MEDS: Morphine Sulfate 4mg/ml Inj (IV USE ONLY) IVP PRN ×5 (05:09→22:07)
[2018-07-03] MEDS: NovoLOG Insulin Flexpen SUBQ SCH ×7 (05:16→21:51)
--- NOTE | 2018-07-03 06:28 | General Progress Note ---
Assessment/Plan Problem List: (1) Uncontrolled diabetes mellitus ICD Codes: E11.65 - Type 2 diabetes mellitus with hyperglycemia SNOMED: 38730167, 395406236 (2) Paraplegia ICD Codes: G82.20 - Paraplegia, unspecified SNOMED: 35872703 (3) Spina bifida ICD Codes: Q05.9 - Spina bifida, unspecified SNOMED: 48435994 Status: stable, progressing Assessment/Plan: continue Levemir 20 units bid continue Novolog 10 units ac tid continue Metformin 500 mg tid continue NISS ac / hs stable for DC from endocrinology stand point Subjective Allergies: Coded Allergies: CIPROFLOXACIN (Verified Allergy, Unknown, 06/14/18) HALOPERIDOL (Verified Allergy, Unknown, 06/14/18) RISPERIDONE (Verified Allergy, Unknown, 06/14/18) SENNA (Verified Allergy, Unknown, 06/14/18) All Systems: reviewed and negative except above Subjective events noted Item Value Date Time Bedside Blood Glucose 194 mg/dl H 07/03/18 0517 Bedside Blood Glucose 159 mg/dl H 07/02/18 2126 Bedside Blood Glucose 230 mg/dl H 07/02/18 1845 Bedside Blood Glucose 186 mg/dl H 07/02/18 1306 Objective Last 24 Hour Vital Signs Date Time Temp Pulse Resp B/P (MAP) Pulse Ox O2 Delivery O2 Flow Rate FiO2 07/03/18 00:00 97.4 101 18 130/84 (99) 100 07/02/18 21:00 Room Air 07/02/18 20:00 99.1 107 18 133/94 (107) 99 07/02/18 19:11 98.4 07/02/18 16:00 98.4 110 18 122/7 (45) 98 07/02/18 12:00 98.6 102 18 130/91 (104) 98 07/02/18 09:00 Room Air 07/02/18 08:00 97.8 97 18 119/82 (94) 96 Intake and Output 07/02/18 07/03/18 19:00 07:00 Intake Total 500 ml Output Total 600 ml Balance -100 ml Intake Oral 500 ml Output Urine Total 600 ml Laboratory Tests 07/02/18 10:20: White Blood Count 7.0, Red Blood Count 4.75, Hemoglobin 13.1L, Hematocrit 40.7L , Mean Corpuscular Volume 86, Mean Corpuscular Hemoglobin 27.7, Mean Corpuscular Hemoglobin Concent 32.3, Red Cell Distribution Width 15.1H, Platelet Count 267, Mean Platelet Volume 6.2L, Neutrophils (%) (Auto) 68.8, Lymphocytes (%) (Auto) 19.8L, Monocytes (%) (Auto) 8.7, Eosinophils (%) (Auto) 1.9, Basophils (%) (Auto) 0.8, Sodium Level 136, Potassium Level 4.7, Chloride Level 100, Carbon Dioxide Level 26, Anion Gap 10, Blood Urea Nitrogen 13, Creatinine 0.3L, Estimat Glomerular Filtration Rate > 60, Glucose Level 217H, Calcium Level 8.6 07/02/18 23:25: Urine Color Pale yellow, Urine Appearance Cloudy, Urine pH 8, Urine Specific Blain 1.010, Urine Protein 3+H, Urine Glucose (UA) Negative, Urine Ketones 1+H , Urine Blood 4+H, Urine Nitrite PositiveH, Urine Bilirubin Negative, Urine Urobilinogen Normal, Urine Leukocyte Esterase 3+H, Urine RBC 10-15H, Urine WBC 60-80H, Urine Squamous Epithelial Cells Occasional, Urine Bacteria ModerateH Height (Feet): 5 Height (Inches): 4.00 Weight (Pounds): 205 General Appearance: no apparent distress Neck: normal alignment Cardiovascular: normal rate Respiratory/Chest: lungs clear Abdomen: normal bowel sounds Edema: 1+ Arm (L), 1+ Arm (R), 1+ Leg (L), 1+ Leg (R), 1+ Pedal (L), 1+ Pedal ( R), 1+ Generalized Objective Current Medications Medications (Trade) Dose Ordered Sig/Trevin Route PRN Reason Start Time Stop Time Status Last Admin Dose Admin Aripiprazole (Abilify) 20 mg DAILY ORAL 06/29/18 09:00 07/29/18 08:59 06/29/18 09:24 Dextrose (Dextrose 50%) 25 ml Q30M PRN IV Hypoglycemia 06/27/18 18:45 07/21/18 06:44 Dextrose (Dextrose 50%) 50 ml Q30M PRN IV Hypoglycemia 06/27/18 18:45 07/21/18 06:44 Divalproex Sodium (Depakote) 500 mg EVERY 12 HOURS ORAL 06/29/18 21:00 07/29/18 20:59 06/30/18 20:29 Docusate Sodium (Colace) 100 mg DAILY ORAL 06/28/18 09:00 07/28/18 08:59 07/02/18 09:52 Fenofibrate (Tricor) 145 mg DAILY ORAL 06/28/18 09:00 07/22/18 14:29 07/02/18 11:52 Gabapentin (Neurontin) 100 mg BID ORAL 06/28/18 09:00 07/21/18 08:59 07/02/18 17:08 Heparin Sodium (Porcine) (Heparin 5000 units/ml) 5,000 units EVERY 12 HOURS SUBQ 06/27/18 21:00 07/21/18 08:59 07/02/18 21:27 Hydromorphone HCl (Dilaudid) 4 mg Q4H PRN ORAL Severe Pain (Pain Scale 7-10) 06/28/18 22:15 07/05/18 22:14 06/30/18 17:19 Insulin Aspart (NovoLOG) BEFORE MEALS AND HS SUBQ 06/27/18 21:00 07/27/18 20:59 07/03/18 05:16 Insulin Aspart (NovoLOG) 10 units NOVOTIAC SUBQ 07/02/18 11:50 07/21/18 06:44 07/03/18 05:17 Insulin Detemir (Levemir) 20 units BID SUBQ 07/02/18 09:00 07/21/18 08:59 07/02/18 18:45 Lactulose (Cephulac) 30 gm THREE TIMES A DAY ORAL 06/28/18 09:00 07/21/18 08:59 07/02/18 17:08 Lamotrigine (LaMICtal) 50 mg DAILY ORAL 06/29/18 09:00 07/29/18 08:59 06/30/18 08:45 Lorazepam (Ativan 2mg/ml 1ml) 1.5 mg Q4H PRN IV For Anxiety 06/29/18 15:30 07/06/18 15:29 07/02/18 21:24 Magnesium Hydroxide (Mom) 30 ml 3XW PRN ORAL Constipation 06/27/18 18:45 07/27/18 18:44 Magnesium Oxide (Mag-Ox 400mg) 400 mg THREE TIMES A DAY ORAL 06/28/18 09:00 07/27/18 17:59 07/02/18 17:08 Metformin HCl (Glucophage) 500 mg TID ORAL 06/28/18 09:00 07/28/18 08:59 07/02/18 17:08 Methadone HCl (Methadone HCl) 15 mg EVERY 8 HOURS PRN ORAL for moderate pain 06/30/18 11:00 07/07/18 10:59 07/02/18 15:28 Morphine Sulfate (Morphine Sulfate) 4 mg Q4H PRN IVP severe pain 06/30/18 11:15 07/05/18 18:59 07/03/18 05:09 Nicotine (Nicoderm) 1 patch Q24H TDERMAL 06/28/18 10:00 07/24/18 09:59 07/02/18 09:53 Oxybutynin Chloride (Ditropan) 10 mg BID ORAL 06/28/18 09:00 07/22/18 08:59 07/02/18 17:08 Pantoprazole (Protonix) 40 mg EVERY 12 HOURS ORAL 06/27/18 21:00 07/21/18 20:59 07/02/18 21:23 Simethicone (Mylicon) 160 mg QID PRN ORAL Abdominal cramps 07/02/18 22:45 08/01/18 22:29 07/02/18 23:06 Sodium Phosphate (Fleet's Sodium Phosl Enema) 133 ml QOD PRN RECTAL Constipation 06/27/18 18:45 07/27/18 18:44 06/29/18 11:15 Tizanidine HCl (Zanaflex) 2 mg Q12H PRN ORAL spasm 06/27/18 19:00 07/27/18 18:59 Trazodone HCl (Desyrel) 50 mg HSPRN PRN ORAL insomia 06/27/18 21:00 07/22/18 20:59 06/27/18 20:31 Arden Rossi MD Jul 03, 2018 06:28
[2018-07-03 08:00] VITALS: BP 123/88
[2018-07-03] MEDS: LORazepam Inj 2mg/ml 1ml IV PRN ×4 (08:04→20:40)
[2018-07-03 08:12] LABS: BASOPHILS % (AUTO) 1.4 % (0.0-2.0); HEMATOCRIT 39.9 % (42.0-52.0); HEMOGLOBIN 13.1 G/DL (14.2-18.0); LYMPHOCYTES % (AUTO) 22.1 % (20.0-45.0); MEAN CORPUSCULAR VOLUME 86 FL (80-99); MONOCYTES % (AUTO) 8.6 % (1.0-10.0); NEUTROPHILS % (AUTO) 65.9 % (45.0-75.0); PLATELET COUNT 255 K/UL (150-450); RED BLOOD COUNT 4.63 M/UL (4.70-6.10); RED CELL DISTRIBUTION WIDTH 14.8 % (11.6-14.8); WHITE BLOOD COUNT 8.2 K/UL (4.8-10.8)
[2018-07-03 08:32] LABS: ANION GAP 9 mmol/L (5-15); BLOOD UREA NITROGEN 15 mg/dL (7-18); CALCIUM 9.1 MG/DL (8.5-10.1); CARBON DIOXIDE 26 MMOL/L (21-32); CHLORIDE 101 MMOL/L (98-107); CREATININE 0.5 MG/DL (0.55-1.30); POTASSIUM 4.2 MMOL/L (3.5-5.1); SODIUM 135 MMOL/L (136-145)
[2018-07-03] MEDS: ARIPiprazole 10mg tab ORAL SCH ×4 (09:00→12:53)
[2018-07-03] MEDS: Depakote 500mg tab ORAL SCH ×8 (09:00→22:06)
[2018-07-03] MEDS: Lactulose 20gm/30ml UDC ORAL SCH ×3 (10:19→17:15)
--- NOTE | 2018-07-03 10:19 | Infectious Diseases Prog Note ---
Assessment/Plan Assessment/Plan IMPRESSION: 1. Positive blood culture with Staph epidermidis likely contamination 2. urinary tract infection 3. schizophrenia, noncompliance with medication, 4.diabetes mellitus, 5.chronic pain, 6.spina bifida, 7.chronic obstructive pulmonary disease, 8. s/p suprapubic catheter. 9. ESBL E. coli colonization 10.Major depression, refuses medications RECOMMENDATION: Patient refuses antibiotics Observe off antibiotic Subjective ROS Limited/Unobtainable: Yes Genitourinary: Reports: other - occasional bladder spasms yesterdau Musculoskeletal: Reports: pain Allergies: Coded Allergies: CIPROFLOXACIN (Verified Allergy, Unknown, 06/14/18) HALOPERIDOL (Verified Allergy, Unknown, 06/14/18) RISPERIDONE (Verified Allergy, Unknown, 06/14/18) SENNA (Verified Allergy, Unknown, 06/14/18) Objective Vital Signs Last 24 Hour Vital Signs Date Time Temp Pulse Resp B/P (MAP) Pulse Ox O2 Delivery O2 Flow Rate FiO2 07/03/18 08:00 97.5 100 16 123/88 (100) 100 07/03/18 04:00 98.3 105 20 138/86 (103) 97 07/03/18 00:00 97.4 101 18 130/84 (99) 100 07/02/18 21:00 Room Air 07/02/18 20:00 99.1 107 18 133/94 (107) 99 07/02/18 19:11 98.4 07/02/18 16:00 98.4 110 18 122/7 (45) 98 07/02/18 12:00 98.6 102 18 130/91 (104) 98 Height (Feet): 5 Height (Inches): 4.00 Weight (Pounds): 205 General Appearance: no acute distress HEENT: mucous membranes moist Respiratory/Chest: lungs clear Cardiovascular: normal rate Abdomen: soft, non tender Genitourinary: other - suprapubic catheter Extremities: other - dependent edema Neurologic/Psychiatric: alert, responsive, other - paraplegic Laboratory Tests Test 07/02/18 10:20 07/02/18 23:25 07/03/18 07:25 White Blood Count 7.0 K/UL (4.8-10.8) 8.2 K/UL (4.8-10.8) Red Blood Count 4.75 M/UL (4.70-6.10) 4.63 M/UL (4.70-6.10) L Hemoglobin 13.1 G/DL (14.2-18.0) L 13.1 G/DL (14.2-18.0) L Hematocrit 40.7 % (42.0-52.0) L 39.9 % (42.0-52.0) L Mean Corpuscular Volume 86 FL (80-99) 86 FL (80-99) Mean Corpuscular Hemoglobin 27.7 PG (27.0-31.0) 28.2 PG (27.0-31.0) Mean Corpuscular Hemoglobin Concent 32.3 G/DL (32.0-36.0) 32.8 G/DL (32.0-36.0) Red Cell Distribution Width 15.1 % (11.6-14.8) H 14.8 % (11.6-14.8) Platelet Count 267 K/UL (150-450) 255 K/UL (150-450) Mean Platelet Volume 6.2 FL (6.5-10.1) L 6.0 FL (6.5-10.1) L Neutrophils (%) (Auto) 68.8 % (45.0-75.0) 65.9 % (45.0-75.0) Lymphocytes (%) (Auto) 19.8 % (20.0-45.0) L 22.1 % (20.0-45.0) Monocytes (%) (Auto) 8.7 % (1.0-10.0) 8.6 % (1.0-10.0) Eosinophils (%) (Auto) 1.9 % (0.0-3.0) 2.0 % (0.0-3.0) Basophils (%) (Auto) 0.8 % (0.0-2.0) 1.4 % (0.0-2.0) Sodium Level 136 MMOL/L (136-145) 135 MMOL/L (136-145) L Potassium Level 4.7 MMOL/L (3.5-5.1) 4.2 MMOL/L (3.5-5.1) Chloride Level 100 MMOL/L (98-107) 101 MMOL/L (98-107) Carbon Dioxide Level 26 MMOL/L (21-32) 26 MMOL/L (21-32) Anion Gap 10 mmol/L (5-15) 9 mmol/L (5-15) Blood Urea Nitrogen 13 mg/dL (7-18) 15 mg/dL (7-18) Creatinine 0.3 MG/DL (0.55-1.30) L 0.5 MG/DL (0.55-1.30) #L Estimat Glomerular Filtration Rate > 60 mL/min (>60) > 60 mL/min (>60) Glucose Level 217 MG/DL (74-106) H 192 MG/DL (74-106) H Calcium Level 8.6 MG/DL (8.5-10.1) 9.1 MG/DL (8.5-10.1) Urine Color Pale yellow Urine Appearance Cloudy Urine pH 8 (4.5-8.0) Urine Specific [place] 1.010 (1.005-1.035) Urine Protein 3+ (NEGATIVE) H Urine Glucose (UA) Negative (NEGATIVE) Urine Ketones 1+ (NEGATIVE) H Urine Blood 4+ (NEGATIVE) H Urine Nitrite Positive (NEGATIVE) H Urine Bilirubin Negative (NEGATIVE) Urine Urobilinogen Normal MG/DL (0.0-1.0) Urine Leukocyte Esterase 3+ (NEGATIVE) H Urine RBC 10-15 /HPF (0 - 0) H Urine WBC 60-80 /HPF (0 - 0) H Urine Squamous Epithelial Cells Occasional /LPF Urine Bacteria Moderate /HPF (NONE) H Current Medications Medications (Trade) Dose Ordered Sig/Trevin Route PRN Reason Start Time Stop Time Status Last Admin Dose Admin Aripiprazole (Abilify) 20 mg DAILY ORAL 06/29/18 09:00 07/29/18 08:59 06/29/18 09:24 Dextrose (Dextrose 50%) 25 ml Q30M PRN IV Hypoglycemia 06/27/18 18:45 07/21/18 06:44 Dextrose (Dextrose 50%) 50 ml Q30M PRN IV Hypoglycemia 06/27/18 18:45 07/21/18 06:44 Divalproex Sodium (Depakote) 500 mg EVERY 12 HOURS ORAL 06/29/18 21:00 07/29/18 20:59 06/30/18 20:29 Docusate Sodium (Colace) 100 mg DAILY ORAL 06/28/18 09:00 07/28/18 08:59 07/02/18 09:52 Fenofibrate (Tricor) 145 mg DAILY ORAL 06/28/18 09:00 07/22/18 14:29 07/02/18 11:52 Gabapentin (Neurontin) 100 mg BID ORAL 06/28/18 09:00 07/21/18 08:59 07/02/18 17:08 Heparin Sodium (Porcine) (Heparin 5000 units/ml) 5,000 units EVERY 12 HOURS SUBQ 06/27/18 21:00 07/21/18 08:59 07/02/18 21:27 Hydromorphone HCl (Dilaudid) 4 mg Q4H PRN ORAL Severe Pain (Pain Scale 7-10) 06/28/18 22:15 07/05/18 22:14 06/30/18 17:19 Insulin Aspart (NovoLOG) BEFORE MEALS AND HS SUBQ 06/27/18 21:00 07/27/18 20:59 07/03/18 05:16 Insulin Aspart (NovoLOG) 10 units NOVOTIAC SUBQ 07/02/18 11:50 07/21/18 06:44 07/03/18 05:17 Insulin Detemir (Levemir) 20 units BID SUBQ 07/02/18 09:00 07/21/18 08:59 07/02/18 18:45 Lactulose (Cephulac) 30 gm THREE TIMES A DAY ORAL 06/28/18 09:00 07/21/18 08:59 07/02/18 17:08 Lamotrigine (LaMICtal) 50 mg DAILY ORAL 06/29/18 09:00 07/29/18 08:59 06/30/18 08:45 Lorazepam (Ativan 2mg/ml 1ml) 1.5 mg Q4H PRN IV For Anxiety 06/29/18 15:30 07/06/18 15:29 07/03/18 08:04 Magnesium Hydroxide (Mom) 30 ml 3XW PRN ORAL Constipation 06/27/18 18:45 07/27/18 18:44 Magnesium Oxide (Mag-Ox 400mg) 400 mg THREE TIMES A DAY ORAL 06/28/18 09:00 07/27/18 17:59 07/02/18 17:08 Metformin HCl (Glucophage) 500 mg TID ORAL 06/28/18 09:00 07/28/18 08:59 07/02/18 17:08 Methadone HCl (Methadone HCl) 15 mg EVERY 8 HOURS PRN ORAL for moderate pain 06/30/18 11:00 07/07/18 10:59 07/03/18 06:26 Morphine Sulfate (Morphine Sulfate) 4 mg Q4H PRN IVP severe pain 06/30/18 11:15 07/05/18 18:59 07/03/18 09:11 Nicotine (Nicoderm) 1 patch Q24H TDERMAL 06/28/18 10:00 07/24/18 09:59 07/02/18 09:53 Oxybutynin Chloride (Ditropan) 10 mg BID ORAL 06/28/18 09:00 07/22/18 08:59 07/02/18 17:08 Pantoprazole (Protonix) 40 mg EVERY 12 HOURS ORAL 06/27/18 21:00 07/21/18 20:59 07/02/18 21:23 Simethicone (Mylicon) 160 mg QID PRN ORAL Abdominal cramps 07/02/18 22:45 08/01/18 22:29 07/02/18 23:06 Sodium Phosphate (Fleet's Sodium Phosl Enema) 133 ml QOD PRN RECTAL Constipation 06/27/18 18:45 07/27/18 18:44 06/29/18 11:15 Tizanidine HCl (Zanaflex) 2 mg Q12H PRN ORAL spasm 06/27/18 19:00 07/27/18 18:59 Trazodone HCl (Desyrel) 50 mg HSPRN PRN ORAL insomia 06/27/18 21:00 07/22/18 20:59 06/27/18 20:31 Daniel Murcia MD Jul 03, 2018 10:18
[2018-07-03] MEDS: Docusate 100mg cap ORAL SCH (10:23)
[2018-07-03] MEDS: Oxybutynin 5mg tab ORAL SCH ×2 (10:25→17:15)
[2018-07-03] MEDS: metFORMIN 500mg tab ORAL SCH ×3 (10:26→17:15)
[2018-07-03] MEDS: Magnesium Oxide 400mg tab ORAL SCH ×3 (10:28→17:15)
[2018-07-03] MEDS: Heparin 5000 units/ml inj SUBQ SCH ×2 (10:53→21:50)
[2018-07-03] MEDS: Levemir Flexpen SUBQ SCH ×2 (10:55→17:21)
[2018-07-03] MEDS: Simethicone 80mg tab ORAL PRN (11:37)
[2018-07-03 12:00] VITALS: BP 130/88
--- NOTE | 2018-07-03 12:53 | Pulmonology Progress Note ---
Assessment/Plan Problems: (1) Hyperkalemia (2) Hyponatremia (3) Sepsis (4) Uncontrolled diabetes mellitus (5) Spina bifida (6) Limited mobility in bed (7) Chronic suprapubic catheter (8) Paraplegia (9) Diabetes mellitus Assessment/Plan wants to leave eating well check electrolytes iv fluids check cultures f/u ID recommendations pain management increase Methadone to 15 Q8 dvt prophylaxis. med/surg pt doesn't want to go back to [place] Subjective ROS Limited/Unobtainable: No Constitutional: Reports: no symptoms HEENT: Repors: no symptoms Allergies: Coded Allergies: CIPROFLOXACIN (Verified Allergy, Unknown, 06/14/18) HALOPERIDOL (Verified Allergy, Unknown, 06/14/18) RISPERIDONE (Verified Allergy, Unknown, 06/14/18) SENNA (Verified Allergy, Unknown, 06/14/18) Objective Last 24 Hour Vital Signs Date Time Temp Pulse Resp B/P (MAP) Pulse Ox O2 Delivery O2 Flow Rate FiO2 07/03/18 12:00 98.2 104 18 130/88 (102) 98 07/03/18 09:00 Room Air 07/03/18 08:00 97.5 100 16 123/88 (100) 100 07/03/18 04:00 98.3 105 20 138/86 (103) 97 07/03/18 00:00 97.4 101 18 130/84 (99) 100 07/02/18 21:00 Room Air 07/02/18 20:00 99.1 107 18 133/94 (107) 99 07/02/18 19:11 98.4 07/02/18 16:00 98.4 110 18 122/7 (45) 98 Intake and Output 07/02/18 07/03/18 18:59 06:59 Intake Total 500 ml Output Total 600 ml 650 ml Balance -100 ml -650 ml Intake Oral 500 ml Output Urine Total 600 ml 650 ml Objective General Appearance: WD/WN HEENT: normocephalic, atraumatic Respiratory/Chest: chest wall non-tender, normal breath sounds Cardiovascular: normal peripheral pulses, normal rate Abdomen: normal bowel sounds, soft, non tender, no organomegaly, non distended Extremities: no cyanosis Skin: no rash, no lesions, no ulcers Laboratory Tests 07/02/18 23:25: Urine Color Pale yellow, Urine Appearance Cloudy, Urine pH 8, Urine Specific [place] 1.010, Urine Protein 3+H, Urine Glucose (UA) Negative, Urine Ketones 1+H , Urine Blood 4+H, Urine Nitrite PositiveH, Urine Bilirubin Negative, Urine Urobilinogen Normal, Urine Leukocyte Esterase 3+H, Urine RBC 10-15H, Urine WBC 60-80H, Urine Squamous Epithelial Cells Occasional, Urine Bacteria ModerateH 07/03/18 07:25: White Blood Count 8.2, Red Blood Count 4.63L, Hemoglobin 13.1L, Hematocrit 39.9L , Mean Corpuscular Volume 86, Mean Corpuscular Hemoglobin 28.2, Mean Corpuscular Hemoglobin Concent 32.8, Red Cell Distribution Width 14.8, Platelet Count 255, Mean Platelet Volume 6.0L, Neutrophils (%) (Auto) 65.9, Lymphocytes ( %) (Auto) 22.1, Monocytes (%) (Auto) 8.6, Eosinophils (%) (Auto) 2.0, Basophils (%) (Auto) 1.4, Sodium Level 135L, Potassium Level 4.2, Chloride Level 101, Carbon Dioxide Level 26, Anion Gap 9, Blood Urea Nitrogen 15, Creatinine 0.5#L, Estimat Glomerular Filtration Rate > 60, Glucose Level 192H, Calcium Level 9.1 Current Medications Medications (Trade) Dose Ordered Sig/Trevin Route PRN Reason Start Time Stop Time Status Last Admin Dose Admin Aripiprazole (Abilify) 20 mg DAILY ORAL 06/29/18 09:00 07/29/18 08:59 06/29/18 09:24 Dextrose (Dextrose 50%) 25 ml Q30M PRN IV Hypoglycemia 06/27/18 18:45 07/21/18 06:44 Dextrose (Dextrose 50%) 50 ml Q30M PRN IV Hypoglycemia 06/27/18 18:45 07/21/18 06:44 Divalproex Sodium (Depakote) 500 mg EVERY 12 HOURS ORAL 06/29/18 21:00 07/29/18 20:59 07/03/18 11:45 Docusate Sodium (Colace) 100 mg DAILY ORAL 06/28/18 09:00 07/28/18 08:59 07/03/18 10:23 Fenofibrate (Tricor) 145 mg DAILY ORAL 06/28/18 09:00 07/22/18 14:29 07/03/18 11:27 Gabapentin (Neurontin) 100 mg BID ORAL 06/28/18 09:00 07/21/18 08:59 07/02/18 17:08 Heparin Sodium (Porcine) (Heparin 5000 units/ml) 5,000 units EVERY 12 HOURS SUBQ 06/27/18 21:00 07/21/18 08:59 07/03/18 10:53 Hydromorphone HCl (Dilaudid) 4 mg Q4H PRN ORAL Severe Pain (Pain Scale 7-10) 06/28/18 22:15 07/05/18 22:14 06/30/18 17:19 Insulin Aspart (NovoLOG) BEFORE MEALS AND HS SUBQ 06/27/18 21:00 07/27/18 20:59 07/03/18 12:17 Insulin Aspart (NovoLOG) 10 units NOVOTIAC SUBQ 07/02/18 11:50 07/21/18 06:44 07/03/18 12:17 Insulin Detemir (Levemir) 20 units BID SUBQ 07/02/18 09:00 07/21/18 08:59 07/03/18 10:55 Lactulose (Cephulac) 30 gm THREE TIMES A DAY ORAL 06/28/18 09:00 07/21/18 08:59 07/03/18 12:06 Lamotrigine (LaMICtal) 50 mg DAILY ORAL 06/29/18 09:00 07/29/18 08:59 06/30/18 08:45 Lorazepam (Ativan 2mg/ml 1ml) 1.5 mg Q4H PRN IV For Anxiety 06/29/18 15:30 07/06/18 15:29 07/03/18 12:10 Magnesium Hydroxide (Mom) 30 ml 3XW PRN ORAL Constipation 06/27/18 18:45 07/27/18 18:44 Magnesium Oxide (Mag-Ox 400mg) 400 mg THREE TIMES A DAY ORAL 06/28/18 09:00 07/27/18 17:59 07/03/18 12:05 Metformin HCl (Glucophage) 500 mg TID ORAL 06/28/18 09:00 07/28/18 08:59 07/03/18 12:05 Methadone HCl (Methadone HCl) 15 mg EVERY 8 HOURS PRN ORAL for moderate pain 06/30/18 11:00 07/07/18 10:59 07/03/18 06:26 Morphine Sulfate (Morphine Sulfate) 4 mg Q4H PRN IVP severe pain 06/30/18 11:15 07/05/18 18:59 07/03/18 09:11 Nicotine (Nicoderm) 1 patch Q24H TDERMAL 06/28/18 10:00 07/24/18 09:59 07/03/18 10:38 Oxybutynin Chloride (Ditropan) 10 mg BID ORAL 06/28/18 09:00 07/22/18 08:59 07/03/18 10:25 Pantoprazole (Protonix) 40 mg EVERY 12 HOURS ORAL 06/27/18 21:00 07/21/18 20:59 07/03/18 10:29 Simethicone (Mylicon) 160 mg QID PRN ORAL Abdominal cramps 07/02/18 22:45 08/01/18 22:29 07/03/18 11:37 Sodium Phosphate (Fleet's Sodium Phosl Enema) 133 ml QOD PRN RECTAL Constipation 06/27/18 18:45 07/27/18 18:44 06/29/18 11:15 Tizanidine HCl (Zanaflex) 2 mg Q12H PRN ORAL spasm 06/27/18 19:00 07/27/18 18:59 Trazodone HCl (Desyrel) 50 mg HSPRN PRN ORAL insomia 06/27/18 21:00 07/22/18 20:59 06/27/18 20:31 Joao Siu MD Jul 03, 2018 12:53
--- NOTE | 2018-07-03 13:58 | General Progress Note ---
Assessment/Plan Problem List: (1) Multiple sclerosis ICD Codes: G35 - Multiple sclerosis SNOMED: 76352029 (2) Dehydration ICD Codes: E86.0 - Dehydration SNOMED: 73159276 (3) Weak ICD Codes: R53.1 - Weakness SNOMED: 16539472 Status: stable, progressing Assessment/Plan: pt diet dc to snf if clear Subjective Constitutional: Reports: weakness Allergies: Coded Allergies: CIPROFLOXACIN (Verified Allergy, Unknown, 06/14/18) HALOPERIDOL (Verified Allergy, Unknown, 06/14/18) RISPERIDONE (Verified Allergy, Unknown, 06/14/18) SENNA (Verified Allergy, Unknown, 06/14/18) All Systems: reviewed and negative except above Subjective sleeping calm Objective Last 24 Hour Vital Signs Date Time Temp Pulse Resp B/P (MAP) Pulse Ox O2 Delivery O2 Flow Rate FiO2 07/03/18 12:00 98.2 104 18 130/88 (102) 98 07/03/18 09:00 Room Air 07/03/18 08:00 97.5 100 16 123/88 (100) 100 07/03/18 04:00 98.3 105 20 138/86 (103) 97 07/03/18 00:00 97.4 101 18 130/84 (99) 100 07/02/18 21:00 Room Air 07/02/18 20:00 99.1 107 18 133/94 (107) 99 07/02/18 19:11 98.4 07/02/18 16:00 98.4 110 18 122/7 (45) 98 Intake and Output 07/02/18 07/03/18 19:00 07:00 Intake Total 500 ml Output Total 600 ml 650 ml Balance -100 ml -650 ml Intake Oral 500 ml Output Urine Total 600 ml 650 ml Laboratory Tests 07/02/18 23:25: Urine Color Pale yellow, Urine Appearance Cloudy, Urine pH 8, Urine Specific [place] 1.010, Urine Protein 3+H, Urine Glucose (UA) Negative, Urine Ketones 1+H , Urine Blood 4+H, Urine Nitrite PositiveH, Urine Bilirubin Negative, Urine Urobilinogen Normal, Urine Leukocyte Esterase 3+H, Urine RBC 10-15H, Urine WBC 60-80H, Urine Squamous Epithelial Cells Occasional, Urine Bacteria ModerateH 07/03/18 07:25: White Blood Count 8.2, Red Blood Count 4.63L, Hemoglobin 13.1L, Hematocrit 39.9L , Mean Corpuscular Volume 86, Mean Corpuscular Hemoglobin 28.2, Mean Corpuscular Hemoglobin Concent 32.8, Red Cell Distribution Width 14.8, Platelet Count 255, Mean Platelet Volume 6.0L, Neutrophils (%) (Auto) 65.9, Lymphocytes ( %) (Auto) 22.1, Monocytes (%) (Auto) 8.6, Eosinophils (%) (Auto) 2.0, Basophils (%) (Auto) 1.4, Sodium Level 135L, Potassium Level 4.2, Chloride Level 101, Carbon Dioxide Level 26, Anion Gap 9, Blood Urea Nitrogen 15, Creatinine 0.5#L, Estimat Glomerular Filtration Rate > 60, Glucose Level 192H, Calcium Level 9.1 Height (Feet): 5 Height (Inches): 4.00 Weight (Pounds): 205 General Appearance: lethargic EENT: normal ENT inspection Neck: normal alignment Cardiovascular: normal peripheral pulses, normal rate, regular rhythm Respiratory/Chest: chest wall non-tender, lungs clear, normal breath sounds Abdomen: normal bowel sounds, non tender, soft Extremities: normal inspection Edema: no edema noted Arm (L), no edema noted Arm (R), no edema noted Leg (L), no edema noted Leg (R), no edema noted Pedal (L), no edema noted Pedal (R), no edema noted Generalized Neurologic: responsive, motor weakness Skin: normal pigmentation, warm/dry Srini Cox DO Jul 03, 2018 13:58
--- NOTE | 2018-07-03 14:25 | Surgery Progress Note ---
Surgery Progress Note Subjective Symptoms: improved, tolerating diet, passing flatus, BM Objective Last 24 Hour Vital Signs Date Time Temp Pulse Resp B/P (MAP) Pulse Ox O2 Delivery O2 Flow Rate FiO2 07/03/18 12:00 98.2 104 18 130/88 (102) 98 07/03/18 09:00 Room Air 07/03/18 08:00 97.5 100 16 123/88 (100) 100 07/03/18 04:00 98.3 105 20 138/86 (103) 97 07/03/18 00:00 97.4 101 18 130/84 (99) 100 07/02/18 21:00 Room Air 07/02/18 20:00 99.1 107 18 133/94 (107) 99 07/02/18 19:11 98.4 07/02/18 16:00 98.4 110 18 122/7 (45) 98 I&O Intake and Output 07/02/18 07/03/18 19:00 07:00 Intake Total 500 ml Output Total 600 ml 650 ml Balance -100 ml -650 ml Intake Oral 500 ml Output Urine Total 600 ml 650 ml Drains: none Cardiovascular: RSR Respiratory: clear Abdomen: soft, distended, non-tender, present bowel sounds Extremities: no tenderness, no cyanosis Laboratory Tests Test 07/02/18 23:25 07/03/18 07:25 Urine Color Pale yellow Urine Appearance Cloudy Urine pH 8 (4.5-8.0) Urine Specific [place] 1.010 (1.005-1.035) Urine Protein 3+ (NEGATIVE) H Urine Glucose (UA) Negative (NEGATIVE) Urine Ketones 1+ (NEGATIVE) H Urine Blood 4+ (NEGATIVE) H Urine Nitrite Positive (NEGATIVE) H Urine Bilirubin Negative (NEGATIVE) Urine Urobilinogen Normal MG/DL (0.0-1.0) Urine Leukocyte Esterase 3+ (NEGATIVE) H Urine RBC 10-15 /HPF (0 - 0) H Urine WBC 60-80 /HPF (0 - 0) H Urine Squamous Epithelial Cells Occasional /LPF Urine Bacteria Moderate /HPF (NONE) H White Blood Count 8.2 K/UL (4.8-10.8) Red Blood Count 4.63 M/UL (4.70-6.10) L Hemoglobin 13.1 G/DL (14.2-18.0) L Hematocrit 39.9 % (42.0-52.0) L Mean Corpuscular Volume 86 FL (80-99) Mean Corpuscular Hemoglobin 28.2 PG (27.0-31.0) Mean Corpuscular Hemoglobin Concent 32.8 G/DL (32.0-36.0) Red Cell Distribution Width 14.8 % (11.6-14.8) Platelet Count 255 K/UL (150-450) Mean Platelet Volume 6.0 FL (6.5-10.1) L Neutrophils (%) (Auto) 65.9 % (45.0-75.0) Lymphocytes (%) (Auto) 22.1 % (20.0-45.0) Monocytes (%) (Auto) 8.6 % (1.0-10.0) Eosinophils (%) (Auto) 2.0 % (0.0-3.0) Basophils (%) (Auto) 1.4 % (0.0-2.0) Sodium Level 135 MMOL/L (136-145) L Potassium Level 4.2 MMOL/L (3.5-5.1) Chloride Level 101 MMOL/L (98-107) Carbon Dioxide Level 26 MMOL/L (21-32) Anion Gap 9 mmol/L (5-15) Blood Urea Nitrogen 15 mg/dL (7-18) Creatinine 0.5 MG/DL (0.55-1.30) #L Estimat Glomerular Filtration Rate > 60 mL/min (>60) Glucose Level 192 MG/DL (74-106) H Calcium Level 9.1 MG/DL (8.5-10.1) Plan Problems: (1) Abnormal urogenital findings (2) Paraplegia (3) Spina bifida (4) Diabetes mellitus Assessment & Plan: DAILY ESTIMATED NEEDS: Needs based on Quadriplegia, wound 65.5kg adj 23-28 kcals/kg 4427-2899 total kcals 1.25-1.5 g protein/kg 82-98 g total protein 25-30 mL/kg 9298-7125 total fluid mLs NUTRITION DIAGNOSIS: 1) Increased protein needs r/t wound healing and h/o quadriplegia as evidenced by pt w/ h/o stage 3 ischial wound and resolving sacral wound. 2) Altered nutrition related lab values r/t diabetes as evidenced by elev BG (633, 395) and elev POC, Uglu 4+ on adm. CURRENT DIET:[facility] MED PO DIET RECOMMENDATIONS: DIET CHANGE-> -> CCHO LOW W/ DOUBLE PROTEIN PORTIONS ADDITIONAL RECOMMENDATIONS: 1) Wound care: add JIM BID + VIT C 250mg BID + MVI x1 daily 2) Check A1C 3) RE-calibrate bed scale for accurate CWB 4) F/up w/ WC eval (5) Limited mobility in bed (6) Sepsis (7) Uncontrolled diabetes mellitus (8) Abdominal distension Assessment & Plan: stable as compared to prior exam continue with bowel regimen KUB noted will follow with serial exam and recs d/c planning okay to discharge from surgical standpoint thank you (9) Decubitus skin ulcer Assessment & Plan: Pt presented on admission with multiple partial thickness pressure injuries secondary to shearing R,L Buttocks ,Scrotum and both ischial regions. Moisture related intertrigo noted to L groin and abd panus.All affected areas cleansed with Soap and water .Triad Paste applied to affected areas including pressure areas on buttocks and both ischail areas. Tx.plan: Apply Triad paste to abd fols, Both groin,Scrotum and Buttocks with each perineal care. Reposition At least every 2hours or as tolerated. Off-Load heels with Pillow. (10) Intractable back pain Endy De La Rosa Jul 03, 2018 14:25
--- NOTE | 2018-07-03 14:59 | Nephrology Progress Note ---
Assessment/Plan Problem List: (1) Hyponatremia (2) Diabetes mellitus Assessment: OOC (3) Sepsis Assessment: UTI (4) Paraplegia (5) High blood triglycerides Assessment high K , due to hemolysis HypoNatremia due to High Glucose / hyperglycemia Uncontrolled Dm UTI ? Sepsis ? suprepubic cath, High lactic level Spina bifida / Paraplegia Limited mobility MS Plan ABx per ID PO Mag Oxide BS control Urine culture 3% saline as needed tricor for high Trigs Monitor lytes per orders urine cultures noted Subjective ROS Limited/Unobtainable: No Constitutional: Reports: malaise Objective Objective Last 24 Hour Vital Signs Date Time Temp Pulse Resp B/P (MAP) Pulse Ox O2 Delivery O2 Flow Rate FiO2 07/03/18 12:00 98.2 104 18 130/88 (102) 98 07/03/18 09:00 Room Air 07/03/18 08:00 97.5 100 16 123/88 (100) 100 07/03/18 04:00 98.3 105 20 138/86 (103) 97 07/03/18 00:00 97.4 101 18 130/84 (99) 100 07/02/18 21:00 Room Air 07/02/18 20:00 99.1 107 18 133/94 (107) 99 07/02/18 19:11 98.4 07/02/18 16:00 98.4 110 18 122/7 (45) 98 Intake and Output 07/02/18 07/03/18 19:00 07:00 Intake Total 500 ml Output Total 600 ml 650 ml Balance -100 ml -650 ml Intake Oral 500 ml Output Urine Total 600 ml 650 ml Laboratory Tests 07/02/18 23:25: Urine Color Pale yellow, Urine Appearance Cloudy, Urine pH 8, Urine Specific [place] 1.010, Urine Protein 3+H, Urine Glucose (UA) Negative, Urine Ketones 1+H , Urine Blood 4+H, Urine Nitrite PositiveH, Urine Bilirubin Negative, Urine Urobilinogen Normal, Urine Leukocyte Esterase 3+H, Urine RBC 10-15H, Urine WBC 60-80H, Urine Squamous Epithelial Cells Occasional, Urine Bacteria ModerateH 07/03/18 07:25: White Blood Count 8.2, Red Blood Count 4.63L, Hemoglobin 13.1L, Hematocrit 39.9L , Mean Corpuscular Volume 86, Mean Corpuscular Hemoglobin 28.2, Mean Corpuscular Hemoglobin Concent 32.8, Red Cell Distribution Width 14.8, Platelet Count 255, Mean Platelet Volume 6.0L, Neutrophils (%) (Auto) 65.9, Lymphocytes ( %) (Auto) 22.1, Monocytes (%) (Auto) 8.6, Eosinophils (%) (Auto) 2.0, Basophils (%) (Auto) 1.4, Sodium Level 135L, Potassium Level 4.2, Chloride Level 101, Carbon Dioxide Level 26, Anion Gap 9, Blood Urea Nitrogen 15, Creatinine 0.5#L, Estimat Glomerular Filtration Rate > 60, Glucose Level 192H, Calcium Level 9.1 Height (Feet): 5 Height (Inches): 4.00 Weight (Pounds): 205 General Appearance: no apparent distress Objective no change Elvin Robles MD Jul 03, 2018 14:58
[2018-07-03 16:00] VITALS: BP 130/91
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
[2018-07-03 20:00] VITALS: BP 123/86
[2018-07-03] MEDS: Fleet's Enema 133ml RECTAL PRN (21:14)
[2018-07-03] MEDS: TraZODone 50mg tab ORAL PRN (22:06)
--- NOTE | 2018-07-03 22:14 | Psych Consult Progress Note ---
Psychiatry Progress Note Psychiatry Progress Note Subjective the pt cont to be angry and easily agitated the pt has poor insight Medications Current Medications Medications (Trade) Dose Ordered Sig/Trevin Route PRN Reason Start Time Stop Time Status Last Admin Dose Admin Aripiprazole (Abilify) 20 mg DAILY ORAL 06/29/18 09:00 07/29/18 08:59 06/29/18 09:24 Dextrose (Dextrose 50%) 25 ml Q30M PRN IV Hypoglycemia 06/27/18 18:45 07/21/18 06:44 Dextrose (Dextrose 50%) 50 ml Q30M PRN IV Hypoglycemia 06/27/18 18:45 07/21/18 06:44 Divalproex Sodium (Depakote) 500 mg EVERY 12 HOURS ORAL 07/03/18 21:00 08/02/18 20:59 07/03/18 22:06 Docusate Sodium (Colace) 100 mg DAILY ORAL 06/28/18 09:00 07/28/18 08:59 07/03/18 10:23 Fenofibrate (Tricor) 145 mg DAILY ORAL 06/28/18 09:00 07/22/18 14:29 07/03/18 11:27 Gabapentin (Neurontin) 100 mg BID ORAL 06/28/18 09:00 07/21/18 08:59 07/03/18 17:15 Heparin Sodium (Porcine) (Heparin 5000 units/ml) 5,000 units EVERY 12 HOURS SUBQ 06/27/18 21:00 07/21/18 08:59 07/03/18 21:50 Hydromorphone HCl (Dilaudid) 4 mg Q4H PRN ORAL Severe Pain (Pain Scale 7-10) 06/28/18 22:15 07/05/18 22:14 06/30/18 17:19 Insulin Aspart (NovoLOG) BEFORE MEALS AND HS SUBQ 06/27/18 21:00 07/27/18 20:59 07/03/18 21:51 Insulin Aspart (NovoLOG) 10 units NOVOTIAC SUBQ 07/02/18 11:50 07/21/18 06:44 07/03/18 17:21 Insulin Detemir (Levemir) 20 units BID SUBQ 07/02/18 09:00 07/21/18 08:59 07/03/18 17:21 Lactulose (Cephulac) 30 gm THREE TIMES A DAY ORAL 06/28/18 09:00 07/21/18 08:59 07/03/18 17:15 Lamotrigine (LaMICtal) 50 mg DAILY ORAL 06/29/18 09:00 07/29/18 08:59 06/30/18 08:45 Lorazepam (Ativan 2mg/ml 1ml) 1.5 mg Q4H PRN IV For Anxiety 06/29/18 15:30 07/06/18 15:29 07/03/18 20:40 Magnesium Hydroxide (Mom) 30 ml 3XW PRN ORAL Constipation 06/27/18 18:45 07/27/18 18:44 Magnesium Oxide (Mag-Ox 400mg) 400 mg THREE TIMES A DAY ORAL 06/28/18 09:00 07/27/18 17:59 07/03/18 17:15 Metformin HCl (Glucophage) 500 mg TID ORAL 06/28/18 09:00 07/28/18 08:59 07/03/18 17:15 Methadone HCl (Methadone HCl) 15 mg EVERY 8 HOURS PRN ORAL for moderate pain 06/30/18 11:00 07/07/18 10:59 07/03/18 14:36 Morphine Sulfate (Morphine Sulfate) 4 mg Q4H PRN IVP severe pain 06/30/18 11:15 07/05/18 18:59 07/03/18 22:07 Nicotine (Nicoderm) 1 patch Q24H TDERMAL 06/28/18 10:00 07/24/18 09:59 07/03/18 10:38 Oxybutynin Chloride (Ditropan) 10 mg BID ORAL 06/28/18 09:00 07/22/18 08:59 07/03/18 17:15 Pantoprazole (Protonix) 40 mg EVERY 12 HOURS ORAL 06/27/18 21:00 07/21/18 20:59 07/03/18 21:49 Simethicone (Mylicon) 160 mg QID PRN ORAL Abdominal cramps 07/02/18 22:45 08/01/18 22:29 07/03/18 11:37 Sodium Phosphate (Fleet's Sodium Phosl Enema) 133 ml QOD PRN RECTAL Constipation 06/27/18 18:45 07/27/18 18:44 07/03/18 21:14 Tizanidine HCl (Zanaflex) 2 mg Q12H PRN ORAL spasm 06/27/18 19:00 07/27/18 18:59 Trazodone HCl (Desyrel) 50 mg HSPRN PRN ORAL insomia 06/27/18 21:00 07/22/18 20:59 07/03/18 22:06 Neurological/Psychiatric: Reports: anxiety, depressed, emotional problems Allergies: Coded Allergies: CIPROFLOXACIN (Verified Allergy, Unknown, 06/14/18) HALOPERIDOL (Verified Allergy, Unknown, 06/14/18) RISPERIDONE (Verified Allergy, Unknown, 06/14/18) SENNA (Verified Allergy, Unknown, 06/14/18) Objective Data Height (Feet): 5 Height (Inches): 4.00 Weight (Pounds): 205 General Appearance: alert, moderate distress, agitated, overweight Appearance: disheveled Behavior Mannerisms: good eye contact Mental Status Exam - Affect: blunted Mental Status Exam - Mood: irritable, angry Speech: clear Mental Status Exam - Thought P: illogical, circumstantial Mental Status Exam - Suicidal: not present Assessment/Plan Problem List: (1) MDD (major depressive disorder), recurrent episode, moderate ICD Codes: F33.1 - Major depressive disorder, recurrent, moderate SNOMED: 68012888, 561837614 Status: stable, progressing Assessment/Plan: Abilify 10mg po qam ativan prn provided /Grisel Lott MD Jul 03, 2018 22:14
[2018-07-04 04:00] VITALS: BP 105/71
[2018-07-04] MEDS: Morphine Sulfate 4mg/ml Inj (IV USE ONLY) IVP PRN ×2 (05:07→09:56)
[2018-07-04] MEDS: NovoLOG Insulin Flexpen SUBQ SCH ×4 (06:24→12:52)
--- NOTE | 2018-07-04 06:48 | General Progress Note ---
Assessment/Plan Problem List: (1) Uncontrolled diabetes mellitus ICD Codes: E11.65 - Type 2 diabetes mellitus with hyperglycemia SNOMED: 16874668, 914221670 (2) Paraplegia ICD Codes: G82.20 - Paraplegia, unspecified SNOMED: 07415236 (3) Spina bifida ICD Codes: Q05.9 - Spina bifida, unspecified SNOMED: 65985152 Status: stable, progressing Assessment/Plan: increase Levemir to 24 units bid continue Novolog 10 units ac tid continue Metformin 500 mg tid continue NISS ac / hs stable for DC from endocrinology stand point Subjective Allergies: Coded Allergies: CIPROFLOXACIN (Verified Allergy, Unknown, 06/14/18) HALOPERIDOL (Verified Allergy, Unknown, 06/14/18) RISPERIDONE (Verified Allergy, Unknown, 06/14/18) SENNA (Verified Allergy, Unknown, 06/14/18) All Systems: reviewed and negative except above Subjective events noted fasting glucose elevated Item Value Date Time Bedside Blood Glucose 228 mg/dl H 07/04/18 0625 Bedside Blood Glucose 267 mg/dl H 07/03/18 2151 Bedside Blood Glucose 204 mg/dl H 07/03/18 1721 Bedside Blood Glucose 297 mg/dl H 07/03/18 1217 Bedside Blood Glucose 194 mg/dl H 07/03/18 1055 Bedside Blood Glucose 194 mg/dl H 07/03/18 0630 Objective Last 24 Hour Vital Signs Date Time Temp Pulse Resp B/P (MAP) Pulse Ox O2 Delivery O2 Flow Rate FiO2 07/04/18 05:37 97.6 07/04/18 04:00 97.6 87 18 105/71 (82) 100 07/03/18 21:00 Room Air 07/03/18 20:00 98.0 100 18 123/86 (98) 97 07/03/18 16:00 98.6 109 17 130/91 (104) 98 07/03/18 12:00 98.2 104 18 130/88 (102) 98 07/03/18 09:00 Room Air 07/03/18 08:00 97.5 100 16 123/88 (100) 100 Intake and Output 07/03/18 07/04/18 19:00 07:00 Intake Total 1100 ml Output Total 1300 ml Balance -200 ml Intake Oral 1100 ml Output Urine Total 1300 ml Laboratory Tests 07/03/18 07:25: White Blood Count 8.2, Red Blood Count 4.63L, Hemoglobin 13.1L, Hematocrit 39.9L , Mean Corpuscular Volume 86, Mean Corpuscular Hemoglobin 28.2, Mean Corpuscular Hemoglobin Concent 32.8, Red Cell Distribution Width 14.8, Platelet Count 255, Mean Platelet Volume 6.0L, Neutrophils (%) (Auto) 65.9, Lymphocytes ( %) (Auto) 22.1, Monocytes (%) (Auto) 8.6, Eosinophils (%) (Auto) 2.0, Basophils (%) (Auto) 1.4, Sodium Level 135L, Potassium Level 4.2, Chloride Level 101, Carbon Dioxide Level 26, Anion Gap 9, Blood Urea Nitrogen 15, Creatinine 0.5#L, Estimat Glomerular Filtration Rate > 60, Glucose Level 192H, Calcium Level 9.1 Height (Feet): 5 Height (Inches): 4.00 Weight (Pounds): 202 General Appearance: no apparent distress Neck: normal alignment Cardiovascular: normal rate Respiratory/Chest: lungs clear Abdomen: normal bowel sounds Edema: 1+ Arm (L), 1+ Arm (R), 1+ Leg (L), 1+ Leg (R), 1+ Pedal (L), 1+ Pedal ( R), 1+ Generalized Objective Current Medications Medications (Trade) Dose Ordered Sig/Trevin Route PRN Reason Start Time Stop Time Status Last Admin Dose Admin Aripiprazole (Abilify) 20 mg DAILY ORAL 06/29/18 09:00 07/29/18 08:59 06/29/18 09:24 Dextrose (Dextrose 50%) 25 ml Q30M PRN IV Hypoglycemia 06/27/18 18:45 07/21/18 06:44 Dextrose (Dextrose 50%) 50 ml Q30M PRN IV Hypoglycemia 06/27/18 18:45 07/21/18 06:44 Divalproex Sodium (Depakote) 500 mg EVERY 12 HOURS ORAL 07/03/18 21:00 08/02/18 20:59 Docusate Sodium (Colace) 100 mg DAILY ORAL 06/28/18 09:00 07/28/18 08:59 07/03/18 10:23 Fenofibrate (Tricor) 145 mg DAILY ORAL 06/28/18 09:00 07/22/18 14:29 07/03/18 11:27 Gabapentin (Neurontin) 100 mg BID ORAL 06/28/18 09:00 07/21/18 08:59 07/03/18 17:15 Heparin Sodium (Porcine) (Heparin 5000 units/ml) 5,000 units EVERY 12 HOURS SUBQ 06/27/18 21:00 07/21/18 08:59 07/03/18 21:50 Hydromorphone HCl (Dilaudid) 4 mg Q4H PRN ORAL Severe Pain (Pain Scale 7-10) 06/28/18 22:15 07/05/18 22:14 06/30/18 17:19 Insulin Aspart (NovoLOG) BEFORE MEALS AND HS SUBQ 06/27/18 21:00 07/27/18 20:59 07/04/18 06:25 Insulin Aspart (NovoLOG) 10 units NOVOTIAC SUBQ 07/02/18 11:50 07/21/18 06:44 07/04/18 06:24 Insulin Detemir (Levemir) 20 units BID SUBQ 07/02/18 09:00 07/21/18 08:59 07/03/18 17:21 Lactulose (Cephulac) 30 gm THREE TIMES A DAY ORAL 06/28/18 09:00 07/21/18 08:59 07/03/18 17:15 Lamotrigine (LaMICtal) 50 mg DAILY ORAL 06/29/18 09:00 07/29/18 08:59 06/30/18 08:45 Lorazepam (Ativan 2mg/ml 1ml) 1.5 mg Q4H PRN IV For Anxiety 06/29/18 15:30 07/06/18 15:29 07/03/18 20:40 Magnesium Hydroxide (Mom) 30 ml 3XW PRN ORAL Constipation 06/27/18 18:45 07/27/18 18:44 Magnesium Oxide (Mag-Ox 400mg) 400 mg THREE TIMES A DAY ORAL 06/28/18 09:00 07/27/18 17:59 07/03/18 17:15 Metformin HCl (Glucophage) 500 mg TID ORAL 06/28/18 09:00 07/28/18 08:59 07/03/18 17:15 Methadone HCl (Methadone HCl) 15 mg EVERY 8 HOURS PRN ORAL for moderate pain 06/30/18 11:00 07/07/18 10:59 07/03/18 14:36 Morphine Sulfate (Morphine Sulfate) 4 mg Q4H PRN IVP severe pain 06/30/18 11:15 07/05/18 18:59 07/04/18 05:07 Nicotine (Nicoderm) 1 patch Q24H TDERMAL 06/28/18 10:00 07/24/18 09:59 07/03/18 10:38 Oxybutynin Chloride (Ditropan) 10 mg BID ORAL 06/28/18 09:00 07/22/18 08:59 07/03/18 17:15 Pantoprazole (Protonix) 40 mg EVERY 12 HOURS ORAL 06/27/18 21:00 07/21/18 20:59 07/03/18 21:49 Simethicone (Mylicon) 160 mg QID PRN ORAL Abdominal cramps 07/02/18 22:45 08/01/18 22:29 07/03/18 11:37 Sodium Phosphate (Fleet's Sodium Phosl Enema) 133 ml QOD PRN RECTAL Constipation 06/27/18 18:45 07/27/18 18:44 07/03/18 21:14 Tizanidine HCl (Zanaflex) 2 mg Q12H PRN ORAL spasm 06/27/18 19:00 07/27/18 18:59 Trazodone HCl (Desyrel) 50 mg HSPRN PRN ORAL insomia 06/27/18 21:00 07/22/18 20:59 07/03/18 22:06 Arden Rossi MD July 04, 2018 06:48
[2018-07-04 08:00] VITALS: BP 108/72
[2018-07-04] MEDS ORDERED: Levemir Flexpen SUBQ SCH (09:00)
[2018-07-04] MEDS: ARIPiprazole 10mg tab ORAL SCH (09:00)
[2018-07-04] MEDS: Lactulose 20gm/30ml UDC ORAL SCH (09:00)
[2018-07-04] MEDS: Depakote 500mg tab ORAL SCH (09:00)
[2018-07-04] MEDS: Docusate 100mg cap ORAL SCH (09:28)
[2018-07-04] MEDS: Oxybutynin 5mg tab ORAL SCH (09:29)
[2018-07-04] MEDS: metFORMIN 500mg tab ORAL SCH (09:31)
--- NOTE | 2018-07-04 09:34 | General Progress Note ---
Assessment/Plan Problem List: (1) Multiple sclerosis ICD Codes: G35 - Multiple sclerosis SNOMED: 53282469 (2) Dehydration ICD Codes: E86.0 - Dehydration SNOMED: 33186663 (3) Weak ICD Codes: R53.1 - Weakness SNOMED: 10602270 Status: stable, progressing Assessment/Plan: pt diet dc to snf if clear Subjective Constitutional: Reports: weakness Allergies: Coded Allergies: CIPROFLOXACIN (Verified Allergy, Unknown, 06/14/18) HALOPERIDOL (Verified Allergy, Unknown, 06/14/18) RISPERIDONE (Verified Allergy, Unknown, 06/14/18) SENNA (Verified Allergy, Unknown, 06/14/18) All Systems: reviewed and negative except above Subjective sleeping calm Objective Last 24 Hour Vital Signs Date Time Temp Pulse Resp B/P (MAP) Pulse Ox O2 Delivery O2 Flow Rate FiO2 07/04/18 08:00 98.0 90 18 108/72 (84) 98 07/04/18 05:37 97.6 07/04/18 04:00 97.6 87 18 105/71 (82) 100 07/03/18 21:00 Room Air 07/03/18 20:00 98.0 100 18 123/86 (98) 97 07/03/18 16:00 98.6 109 17 130/91 (104) 98 07/03/18 12:00 98.2 104 18 130/88 (102) 98 Intake and Output 07/03/18 07/04/18 19:00 07:00 Intake Total 1100 ml Output Total 1300 ml 750 ml Balance -200 ml -750 ml Intake Oral 1100 ml Output Urine Total 1300 ml 750 ml # Voids 1 Height (Feet): 5 Height (Inches): 4.00 Weight (Pounds): 202 General Appearance: lethargic EENT: normal ENT inspection Neck: normal alignment Cardiovascular: normal peripheral pulses, normal rate, regular rhythm Respiratory/Chest: chest wall non-tender, lungs clear, normal breath sounds Abdomen: normal bowel sounds, non tender, soft Extremities: normal inspection Edema: no edema noted Arm (L), no edema noted Arm (R), no edema noted Leg (L), no edema noted Leg (R), no edema noted Pedal (L), no edema noted Pedal (R), no edema noted Generalized Neurologic: motor weakness Skin: normal pigmentation, warm/dry Srini Cox DO July 04, 2018 09:34
[2018-07-04] MEDS: Magnesium Oxide 400mg tab ORAL SCH (09:37)
[2018-07-04] MEDS: Heparin 5000 units/ml inj SUBQ SCH (09:54)
[2018-07-04] MEDS: LORazepam Inj 2mg/ml 1ml IV PRN (10:41)
[2018-07-04] MEDS ORDERED: FENOFIBRATE145 M1 ORAL ×2 (12:07→12:08)
[2018-07-04] MEDS ORDERED: MAGNESIUM OXID400 M1 ORAL (12:11)
[2018-07-04] MEDS ORDERED: METFORMIN HCL500 M1 ORAL (12:12)
[2018-07-04] MEDS ORDERED: OXYBUTYNIN CHLOR5 M1 ORAL (12:13)
[2018-07-04] MEDS ORDERED: PANTOPRAZOLE SO40 MG ORAL (12:14)
[2018-07-04] MEDS ORDERED: LAMICTAL25 MG ORAL (12:15)
[2018-07-04] MEDS ORDERED: PCA MORPHINE1 MG/ML IV (12:31)
--- NOTE | 2018-07-04 13:36 | Pulmonology Progress Note ---
Assessment/Plan Problems: (1) Hyperkalemia (2) Hyponatremia (3) Sepsis (4) Uncontrolled diabetes mellitus (5) Spina bifida (6) Limited mobility in bed (7) Chronic suprapubic catheter (8) Paraplegia (9) Diabetes mellitus Assessment/Plan wants to leave eating well check electrolytes pain management increase Methadone to 15 Q8 dvt prophylaxis. med/surg med/recon done Subjective ROS Limited/Unobtainable: No Allergies: Coded Allergies: CIPROFLOXACIN (Verified Allergy, Unknown, 06/14/18) HALOPERIDOL (Verified Allergy, Unknown, 06/14/18) RISPERIDONE (Verified Allergy, Unknown, 06/14/18) SENNA (Verified Allergy, Unknown, 06/14/18) Objective Last 24 Hour Vital Signs Date Time Temp Pulse Resp B/P (MAP) Pulse Ox O2 Delivery O2 Flow Rate FiO2 07/04/18 09:00 Room Air 07/04/18 08:00 98.0 90 18 108/72 (84) 98 07/04/18 05:37 97.6 07/04/18 04:00 97.6 87 18 105/71 (82) 100 07/03/18 21:00 Room Air 07/03/18 20:00 98.0 100 18 123/86 (98) 97 07/03/18 16:00 98.6 109 17 130/91 (104) 98 Intake and Output 07/03/18 07/04/18 18:59 06:59 Intake Total 1100 ml Output Total 1300 ml 750 ml Balance -200 ml -750 ml Intake Oral 1100 ml Output Urine Total 1300 ml 750 ml # Voids 1 Objective General Appearance: WD/WN HEENT: normocephalic, atraumatic Respiratory/Chest: chest wall non-tender, normal breath sounds Cardiovascular: normal peripheral pulses, normal rate Abdomen: normal bowel sounds, soft, non tender, no organomegaly, non distended Extremities: no cyanosis Skin: no rash, no lesions, no ulcers Microbiology Date/Time Source Procedure Growth Status 07/02/18 23:25 Indwelling Cath Urine Culture - Preliminary Gram Negative Neeraj Resulted Joao Siu MD July 04, 2018 13:36
--- NOTE | 2018-07-04 15:01 | Nephrology Progress Note ---
Assessment/Plan Problem List: (1) Hyponatremia (2) Diabetes mellitus Assessment: OOC (3) Sepsis Assessment: UTI (4) Paraplegia (5) High blood triglycerides Assessment high K , due to hemolysis HypoNatremia due to High Glucose / hyperglycemia Uncontrolled Dm UTI ? Sepsis ? suprepubic cath, High lactic level Spina bifida / Paraplegia Limited mobility MS Plan ABx per ID PO Mag Oxide BS control Urine culture 3% saline as needed tricor for high Trigs Monitor lytes per orders urine cultures noted ? Dc Subjective ROS Limited/Unobtainable: No Interval Events/Complaints seen at 9 am Objective Objective Last 24 Hour Vital Signs Date Time Temp Pulse Resp B/P (MAP) Pulse Ox O2 Delivery O2 Flow Rate FiO2 07/04/18 09:00 Room Air 07/04/18 08:00 98.0 90 18 108/72 (84) 98 07/04/18 05:37 97.6 07/04/18 04:00 97.6 87 18 105/71 (82) 100 07/03/18 21:00 Room Air 07/03/18 20:00 98.0 100 18 123/86 (98) 97 07/03/18 16:00 98.6 109 17 130/91 (104) 98 Intake and Output 07/03/18 07/04/18 18:59 06:59 Intake Total 1100 ml Output Total 1300 ml 750 ml Balance -200 ml -750 ml Intake Oral 1100 ml Output Urine Total 1300 ml 750 ml # Voids 1 Height (Feet): 5 Height (Inches): 4.00 Weight (Pounds): 202 General Appearance: no apparent distress, agitated - at times Abdomen: soft Objective no change Elvin Robles MD July 04, 2018 15:01
--- NOTE | 2018-07-04 22:41 | Psych Consult Progress Note ---
Psychiatry Progress Note Psychiatry Progress Note Neurological/Psychiatric: Reports: anxiety, depressed, emotional problems Allergies: Coded Allergies: CIPROFLOXACIN (Verified Allergy, Unknown, 06/14/18) HALOPERIDOL (Verified Allergy, Unknown, 06/14/18) RISPERIDONE (Verified Allergy, Unknown, 06/14/18) SENNA (Verified Allergy, Unknown, 06/14/18) Objective Data Height (Feet): 5 Height (Inches): 4.00 Weight (Pounds): 202 General Appearance: WD/WN, no apparent distress, alert, agitated, overweight, alert oriented x3 Appearance: disheveled Behavior Mannerisms: good eye contact Mental Status Exam - Affect: blunted Mental Status Exam - Mood: irritable, angry, anxious, agitated Speech: clear Mental Status Exam - Thought P: illogical Mental Status Exam - Thought C: paranoia Mental Status Exam - Suicidal: not present Assessment/Plan Problem List: (1) MDD (major depressive disorder), recurrent episode, moderate ICD Codes: F33.1 - Major depressive disorder, recurrent, moderate SNOMED: 45242636, 350335850 Status: stable, progressing Assessment/Plan: Abilify 10mg po qam ativan prn provided ro/st Grisel Huizar MD July 04, 2018 22:41
--- NOTE | 2018-07-06 07:12 | Discharge Summary ---
Discharge Summary Discharge Summary _ DATE OF ADMISSION: 06/20/2018 DATE OF DISCHARGE: 07/04/2018 DISCHARGED BY: Dr. Srini Cox CONSULTANTS: Dr. Arden Benjamin BRIEF HOSPITAL COURSE: Patient is a 42-year-old male, who presented to ED with complaints of bladder cramping and increased pain. Patient continued to feel weak and was not able to eat and drink. He complained of increased nausea. Patient was recently discharged from the hospital. He has medical history significant for chronic pain syndrome, constipation, multiple sclerosis, mood disorder, spina bifida and paraplegia. He is DNR/DNI. On evaluation at the ED, blood work showed leukocytosis, WBC 14. Hemoglobin and hematocrit were stable. Sodium was 129 chloride 91. Glucose was elevated to 630. CO2 19, anion gap 19. Lactic acid was 6.1. Troponin negative. Urinalysis showed 2+ protein, 4+ glucose, 4+ blood, positive nitrite, 3+ leukocyte esterase, 10-15 RBC, 5-10 WBC. Chest x-ray did not show any acute disease. He was given IV hydration. He was given insulin. He was started on amikacin. He was then admitted to [facility] for uncontrolled diabetes mellitus. Web Analyst was consulted for diabetes management. Patient had lactic acidosis. Metformin was discontinued. He was started on Levemir. He was given NovoLog AC meals. Insulin doses were titrated. Hemoglobin A1c was 9.2. He was noted to have hyponatremia, possibly due to hyperglycemia. He was given IV hydration. He was eventually given 3% saline solution. He came in with multiple partial thickness pressure injury secondary to shearing on bilateral right and left buttock, scrotum and both ischial region. He also had intertrigo noted on the left groin and abdominal pannus. Surgeon was consulted. Wound care was provided. He was advised frequent repositioning and offloading. Nutrition was optimized. Patient has a history of neurogenic bladder secondary to spina bifida. Patient had quadriplegia from . Neurogenic bladder was secondary. He was initially managed with in and out catheterization but eventually was switched to suprapubic catheter. Urologist was consulted regarding back to his spasm and need for suprapubic tube change. Patient normally takes Ditropan twice a day, however had been off Ditropan for 2 weeks. Patient had recurrent urinary tract infection, secondary to neurogenic bladder with suprapubic catheter. Suprapubic catheter was changed at bedside. Bladder was irrigated. Urologist recommended patient to be continued on antibiotics and to increase oxybutynin to higher dose. Lipid panel showed elevated triglycerides. He was started on TriCor. Patient was educated on low-fat low-cholesterol diabetic diet. Psychiatric evaluation was done. Patient was abusive and combative. Patient was using profanity and was yelling throughout the day. He was asking for IV Ativan and pain medications. He was uncooperative with examination. He was given Abilify and Depakote. ID was consulted. Blood culture x1 showed growth of gram-positive cocci, likely contamination. Patient had a recent urinary tract infection with Proteus extended spectrum beta-lactamase as and E. coli extended spectrum beta- lactamases. Repeat urine culture showed growth of Proteus and E. coli ESBL. Patient refused to take antibiotics. He was observed off antibiotic treatment. Lactic acidosis resolved. Patient continued to have elevated blood glucose. Started on metformin tid. Patient refused to go back to previous long-term. He was referred to other facilities. He was eventually accepted at [facility]. FINAL DIAGNOSES: Sepsis UTI with Proteus and E. coli ESBL Hyponatremia Diabetes mellitus type 2 out of control Paraplegia Hypertriglyceridemia Spina bifida Limited mobility Multiple sclerosis Neurogenic bladder with chronic suprapubic catheter Status post suprapubic catheter change on 06/22/2018 Abdominal distention Multiple partial thickness pressure injury, as stated above, present on admission Major depressive disorder, recurrent, moderate Dehydration Lactic acidosis Nicotine dependency with withdrawal DISPOSITION: Patient was discharged to a SNF. DISCHARGE MEDICATIONS: Refer to Discharge Medication List. I have been assigned to complete a discharge summary on this account, I was not involved with the patient's management. Phyllis Escobedo NP July 06, 2018 07:12
== END 2018-07-04 13:09 | DRG 871 ==
LOC: EDBD 20:26 → EMR 21:06 → 2E 21:09 → EDBEDREQ 21:48 → EDBEDREQSVC 21:48 → EDBEDREQ 22:31 → 2E 23:22 → EDBEDREQ 23:22 → EDBEDREQSVC 23:38 → EDBEDREQ 23:38 → 2W 06-21 00:01 → 2E 06-22 16:30 → 4E 06-27 18:01
DX: A41.9 Sepsis, unspecified organism (principal); G82.50 Quadriplegia, unspecified; E87.1 Hypo-osmolality and hyponatremia; F17.203 Nicotine dependence unspecified, with withdrawal; N39.0 Urinary tract infection, site not specified; F33.1 Major depressive disorder, recurrent, moderate; Q05.9 Spina bifida, unspecified; G89.4 Chronic pain syndrome; N32.89 Other specified disorders of bladder; Z88.1 Allergy status to other antibiotic agents; Z88.8 Allergy status to other drugs, medicaments and biological substances; E11.65 Type 2 diabetes mellitus with hyperglycemia; G35 Multiple sclerosis; Z43.5 Encounter for attention to cystostomy; R14.0 Abdominal distension (gaseous); L89.329 Pressure ulcer of left buttock, unspecified stage; L89.319 Pressure ulcer of right buttock, unspecified stage; L89.899 Pressure ulcer of other site, unspecified stage; M54.9 Dorsalgia, unspecified; K21.9 Gastro-esophageal reflux disease without esophagitis; N31.8 Other neuromuscular dysfunction of bladder; Z91.14 Patient's other noncompliance with medication regimen; F20.9 Schizophrenia, unspecified; Z22.39 Carrier of other specified bacterial diseases; E86.0 Dehydration; R53.1 Weakness; R62.7 Adult failure to thrive; E78.1 Pure hyperglyceridemia; B96.4 Proteus (mirabilis) (morganii) as the cause of diseases classified elsewhere; B96.20 Unspecified Escherichia coli [E. coli] as the cause of diseases classified elsewhere; Z16.12 Extended spectrum beta lactamase (ESBL) resistance; R26.2 Difficulty in walking, not elsewhere classified
CPT/HCPCS: 36415; 71045; 74018; 80048; 80053; 80061; 80076; 81001; 81003; 82533; 82550; 82553; 82607; 82746; 82962; 82977; 83036; 83605; 83690; 83735; 83880; 83930; 83935; 84100; 84300; 84443; 84478; 84484; 84550; 85025; 86140; 87040; 87081; 87086; 87181; 93005; 96361; 96365; 96375; 96376; 99285; J1815; J2405; S5561

== ENCOUNTER 2019-01-13 01:46 | Inpatient (IN) | payer MEDICARE, OTHER ==
[~2019-01-13] VITALS: Ht 157.5 cm; Wt 84.9 kg
[~2019-01-13 01:46] MED LIST changes: +COLACE100 MG ORAL; +FENOFIBRATE145 M1 ORAL; +FLEET ENEMA133 ML RECTAL; +GLUCOPHAGE500 MG ORAL; +LAMICTAL25 MG ORAL; +LEVEMIR FL100 UNIT/1 SUBQ; +MAGNESIUM OXID400 M1 ORAL; +METFORMIN HCL500 M1 ORAL; +MILK OF MA400 MG/51 ORAL; +MONOJECT H100 UNIT/1 SQ; +NOVOLOG SS; +OXYBUTYNIN CHLOR5 M1 ORAL; +PANTOPRAZOLE SO40 MG ORAL; +PCA MORPHINE1 MG/ML IV; +SENNA176 MG/5 M PO
[2019-01-13 01:53] VITALS: BP 149/108
--- NOTE | 2019-01-13 01:59 | NUR ---
ED Nurse Note: pt presents to ED via EMS from [facility] c/o 10/13 suprapubic pain for months that has progressively gotten worse. per EMS, when pt has had this pain in the past, it required flushing of his catheter. today it was flushed wtih 60 mL of fluid, "a lot of sediment came out." and pt did not have relief of symptoms. pt's PCP is Dr. Srini Cox, he has a h/o paraplegia, DM, schizophrenia, hyperlipidemia, HTN, neuropathy and gastritis
--- NOTE | 2019-01-13 02:55 | Emergency Room Report ---
History of Present Illness General Chief Complaint: Pelvic Pain Source: Patient Present Illness HPI 43-year-old male who is paraplegic. He has a history of chronic pain and also chronic Morales. He presents with chief complaint of catheter pain. Onset today. At baseline he always have pain. But is getting worse. Hurts to urinate. He has spasm in that area. Usually when this happened has urinary tract infection. Is 10 out of 10. Also felt anxious. No fever chills but no nausea no vomiting. Allergies: Coded Allergies: CIPROFLOXACIN (Verified Allergy, Unknown, 06/14/18) HALOPERIDOL (Verified Allergy, Unknown, 06/14/18) RISPERIDONE (Verified Allergy, Unknown, 06/14/18) SENNA (Verified Allergy, Unknown, 06/14/18) Patient History Past Medical History: see triage record, old chart reviewed Past Surgical History: other Pertinent Family History: none Social History: Denies: smoking Immunizations: other Reviewed Nursing Documentation: PMH: Agreed; PSxH: Agreed Nursing Documentation-PMH Hx Cardiac Problems: No Hx COPD: Yes Hx Diabetes: Yes Hx Cancer: No Hx Gastrointestinal Problems: Yes - Reflux Hx Multiple Sclerosis: Yes Review of Systems Eye: Denies: eye pain, blurred vision ENT: Denies: ear pain, nose congestion, throat swelling Respiratory: Denies: cough, shortness of breath Cardiovascular: Denies: chest pain, palpitations Gastrointestinal: Denies: abdominal pain, diarrhea, nausea, vomiting Genitourinary: Reports: dysuria Musculoskeletal: Denies: back pain, joint pain Skin: Denies: rash Neurological: Denies: headache, numbness Endocrine: Denies: increased thirst, increased urine Hematologic/Lymphatic: Denies: easy bruising All Other Systems: negative except mentioned in HPI Physical Exam Vital Signs Date Time Temp Pulse Resp B/P (MAP) Pulse Ox O2 Delivery O2 Flow Rate FiO2 01/13/19 01:48 97.5 85 17 149/108 (122) 96 Room Air Vitals unremarkable Sp02 EP Interpretation: reviewed, normal General Appearance: well appearing, no apparent distress, alert Head: normocephalic, atraumatic Eyes: bilateral eye PERRL, bilateral eye EOMI ENT: hearing grossly normal, normal pharynx Neck: full range of motion, supple, no meningismus Respiratory: chest non-tender, lungs clear, normal breath sounds Cardiovascular #1: regular rate, rhythm, no murmur Gastrointestinal: normal bowel sounds, non tender, no mass, no organomegaly, no bruit, non-distended Genitourinary: other - Supra pubic catheter Musculoskeletal: back normal Neurologic: other - No motor function to arms and legs Psychiatric: anxious Medical Decision Making Diagnostic Impression: Primary Impression: UTI due to extended-spectrum beta lactamase (ESBL) producing Escherichia coli Additional Impressions: Anxiety Chronic pain Qualified Codes: G89.4 - Chronic pain syndrome Chronic suprapubic catheter ER Course Patient presents with suprapubic pain. He does have a urinary tract infection. He grew out ESBL E. coli and multidrug-resistant Klebsiella on last admission. Both of them were sensitive to ertapenem. No oral medication shows sensitivity. Because of this, will admit for IV antibiotics. Patient also has chronic pain and anxiety. Treated appropriately here. I contacted Dr. Cox for admission. Last Vital Signs Date Time Temp Pulse Resp B/P (MAP) Pulse Ox O2 Delivery O2 Flow Rate FiO2 01/13/19 01:53 97.5 17 149/108 96 Room Air 01/13/19 01:48 85 Status: improved Disposition: ADMITTED INPATIENT Condition: Serious Referrals: NOT CHOSEN NICO/,REFERRING (PCP) Sridhar Steiner MD Jan 13, 2019 02:55
[2019-01-13] MEDS ORDERED: Morphine Sulfate 4mg/ml Inj (IV USE ONLY) IVP ONE ×2 (03:00)
[2019-01-13] MEDS ORDERED: LORazepam Inj 2mg/ml 1ml IV ONE (03:00)
[2019-01-13 03:11] LABS: ANION GAP 11 mmol/L (5-15); BLOOD UREA NITROGEN 17 mg/dL (7-18); CALCIUM 8.7 MG/DL (8.5-10.1); CARBON DIOXIDE 24 MMOL/L (21-32); CHLORIDE 102 MMOL/L (98-107); CREATININE 0.4 MG/DL (0.55-1.30); POTASSIUM 4.5 MMOL/L (3.5-5.1); SODIUM 137 MMOL/L (136-145)
[2019-01-13 03:24] LABS: APPEARANCE,URINE CLOUDY; BILIRUBIN, URINE NEGATIVE (NEGATIVE); COLOR,URINE PALE YELLOW; GLUCOSE, URINE (UA) NEGATIVE (NEGATIVE); KETONES,URINE NEGATIVE (NEGATIVE); LEUKOCYTE ESTERASE ,URINE 3+ (NEGATIVE); NITRITE,URINE POSITIVE (NEGATIVE); PH,URINE 7 (4.5-8.0); PROTEIN,URINE 3+ (NEGATIVE); UROBILINOGEN,URINE NORMAL MG/DL (0.0-1.0)
[2019-01-13 03:26] LABS: BASOPHILS % (AUTO) 0.7 % (0.0-2.0); EOSINOPHILS % (AUTO) 2.5 % (0.0-3.0); HEMATOCRIT 38.6 % (42.0-52.0); HEMOGLOBIN 13.4 G/DL (14.2-18.0); MEAN CORPUSCULAR VOLUME 82 FL (80-99); MONOCYTES % (AUTO) 9.5 % (1.0-10.0); NEUTROPHILS % (AUTO) 65.4 % (45.0-75.0); PLATELET COUNT 268 K/UL (150-450); RED BLOOD COUNT 4.69 M/UL (4.70-6.10); RED CELL DISTRIBUTION WIDTH 16.2 % (11.6-14.8); WHITE BLOOD COUNT 11.7 K/UL (4.8-10.8)
[2019-01-13] MEDS ORDERED: Ertapenem 1 GM in NS 55 ML IV ONE (03:45)
[2019-01-13 03:54] VITALS: BP 144/99
--- NOTE | 2019-01-13 04:29 | NUR ---
ED Nurse Note: report given to OBED Salazar
[2019-01-13] MEDS ORDERED: CLONIDINE1 EAC1 TD (04:58)
[2019-01-13] MEDS ORDERED: ATORVASTATIN CA40 MG ORAL (04:58)
[2019-01-13] MEDS ORDERED: ASPIR 8181 MG ORAL (04:58)
[2019-01-13] MEDS ORDERED: Morphine Sulfate 4mg/ml Inj (IV USE ONLY) IVP PRN (05:00)
[2019-01-13] MEDS ORDERED: LORazepam Inj 2mg/ml 1ml IV PRN (05:00)
[2019-01-13 05:40] VITALS: BP 116/77
--- NOTE | 2019-01-13 06:55 | NUR ---
NURSE NOTES: Admitted patient awake,alert,verbal,paraplegic,stable vital signs. Pressure ulcers were cleaned,pictures taken,dressings changed. Left message to Dr Cox for admitting orders.
--- NOTE | 2019-01-13 07:09 | NUR ---
HAND-OFF: Report given to OBED Valdez.
--- NOTE | 2019-01-13 07:22 | NUR ---
NURSE NOTES: Pt awake, A/O x 4, calm. denies pain, no SOB noted. superpubic cath in place , dressing on sacral and buttocks in place, waiting for adm order from Dr. Cox. bed in low position, bed alarm on , call light within reach, fall precaution maintained. will continue to monitor.
[2019-01-13] MEDS: D5 1/2NS 1,000 ML IV SCH (07:45)
[2019-01-13 08:00] VITALS: BP 110/77
[2019-01-13] MEDS ORDERED: HYDROcodone/Acetamin 5/325 tab ORAL PRN (08:00)
[2019-01-13] MEDS ORDERED: Simethicone 80mg tab ORAL PRN (08:00)
[2019-01-13] MEDS ORDERED: Milk of Magnesia 30ml Ud ORAL PRN (08:30)
[2019-01-13] MEDS ORDERED: Levemir Flexpen SUBQ SCH (08:30)
[2019-01-13] MEDS: Metoprolol Succinate XL 25mg tab ORAL SCH (09:00)
[2019-01-13] MEDS: Zinc Sulfate 220mg cap ORAL SCH (09:18)
[2019-01-13] MEDS: metFORMIN 500mg tab ORAL SCH ×2 (09:18→17:38)
[2019-01-13] MEDS: Aspirin EC 81mg tab ORAL SCH (09:18)
[2019-01-13] MEDS: Ascorbic Acid 500mg tab ORAL SCH ×2 (09:19→17:38)
[2019-01-13] MEDS: Docusate 100mg cap ORAL SCH (09:19)
[2019-01-13] MEDS: LORazepam 1mg tab ORAL PRN ×2 (09:59→19:28)
--- NOTE | 2019-01-13 11:45 | History and Physical Report ---
DATE OF ADMISSION: 01/13/2019 TIME SEEN: 8 a.m. CONSULTANTS: 1. Armond May M.D. 2. Rosalino Caraballo M.D. CHIEF COMPLAINT: ESBL, UTI, sepsis, chronic pain. BRIEF HISTORY: This is a 43-year-old male from [facility], presented with above-mentioned diagnoses, admitted to medical floor for further treatment. Currently, sleeping in bed, refusing to answer. REVIEW OF SYSTEMS: Unavailable. PAST MEDIAL HISTORY: Diabetes, hypertension, chronic pain, sacral wound, paraplegia, and depression. PAST SURGICAL HISTORY: Suprapubic catheter. MEDICATIONS: Include Lipitor, Levemir, NovoLog, Ecotrin, Colace, Neurontin, Pepcid, Glucophage, Toprol, fluphenazine, lorazepam, magnesium, trazodone, methadone, diphenhydramine, hydrocodone, Zofran, ertapenem. ALLERGIES: Cipro, Haldol, Risperdal, and senna. SOCIAL HISTORY: Unable to obtain secondary the patient is very lethargic, sleepy. PHYSICAL EXAMINATION: VITAL SIGNS: Temperature is 97 degrees, pulse 82, respirations 18, blood pressure 116/77. CARDIOVASCULAR: No murmurs. LUNGS: Poor air exchange. ABDOMEN: Bowel sounds distant. EXTREMITIES: No cyanosis, clubbing, or edema. NEUROLOGIC: The patient is flaccid with low weights otherwise slightly weak. LABORATORY AND DIAGNOSTIC DATA: Labs at this time show white count 11.7, hemoglobin and hematocrit 13/38, platelets 268. Creatinine 0.4, glucose 207. Urinalysis 3+ leukocyte esterase. ASSESSMENT: 1. UTI. 2. Sepsis. 3. Diabetes. 4. Hypertension. 5. Chronic pain. 6. Paraplegia. 7. Sacral wound. 8. Depression. PLAN: 1. Wound care. 2. Antibiotic per Infectious Disease. 3. Blood pressure, blood sugar, and pain control. 4. Dietary followup. 5. Resume home medications. 6. CBC and BMP in the morning. 7. PT and dietary evaluation. Srini Cox D.O. DR: MARINE/ASHLEY JOB#: [id number] CC:
[2019-01-13 12:00] VITALS: BP 120/73
[2019-01-13] MEDS: NovoLOG Insulin Flexpen SUBQ SCH ×3 (12:15→20:16)
[2019-01-13] MEDS ORDERED: Ertapenem 1 GM in NS 55 ML IVPB SCH (15:30)
[2019-01-13] MEDS: oxyCODONE HCL/Acetaminophen 5/325mg ORAL PRN ×2 (16:20→21:04)
--- NOTE | 2019-01-13 19:41 | NUR ---
NURSE NOTES: Received patient on bed, verbally responsive. suprapubic cath in place. no c/o pain or discomfort. iv line on the right forearm. intact and patent. bed in lowest positioned. call light and light button within easy reach. will continue plan of care.
--- NOTE | 2019-01-13 19:42 | NUR ---
NURSE NOTES: Pt received in bed awake alert and complaining about not receiving Ativan, able to make needs known, can call out for nurse if he needs help, two iv sites, Iv fluids running, suprapubic catheter draining yellow urine, will continue to monitor.
[2019-01-13 20:00] VITALS: BP 126/84
[2019-01-13] MEDS: Atorvastatin 80mg tab ORAL SCH (20:06)
[2019-01-13] MEDS: Heparin 5000 units/ml inj SUBQ SCH (20:07)
[2019-01-13] MEDS: Levemir Flexpen SUBQ SCH (20:15)
[2019-01-14] MEDS: D5 1/2NS 1,000 ML IV SCH ×2 (01:06→18:00)
--- NOTE | 2019-01-14 01:30 | Consultation ---
DATE OF CONSULTATION: 01/13/2019 PSYCHOTHERAPY CONSULTATION PROGRESS NOTE CONSULTING PHYSICIAN: Ashly Pacheco PsyD. TREATING ATTENDING PHYSICIAN: Srini Cox D.O. HISTORY OF PRESENT ILLNESS: The patient is a 43-year-old male patient from a snf facility, [facility]. The patient has a history of schizophrenia. The patient was brought to the hospital for urinary tract infection. The patient was referred to psychotherapeutic . The patient states that he is anxious because he is in constant pain. He states that he continues to have difficulty with his urine causing him agitation at this time. He denies suicidal or homicidal thoughts or ideation. Denies any auditory or visual hallucinations. He is very verbal, able to communicate, participate in treatment. . He is also having some difficulty sleeping . PAST MEDICAL HISTORY: Includes history of chronic Morales, possible history of MS, positive sepsis, UTI, dehydration, chronic pain, hyperkalemia, and hypernatremia. ALLERGIES: He is allergic to haloperidol, risperidone, and senna. SUBSTANCE ABUSE HISTORY: He denies a history of alcohol use, illicit substance use. PSYCHIATRIC HISTORY: The patient has a history of paranoid schizophrenia and has been treated with psychotropic medications in the past. SOCIAL HISTORY: The patient is a 43-year-old male patient from [facility]. Financially sustained through [facility]. MENTAL STATUS EXAMINATION: Alert and oriented to person, place, and time. His mood is anxious. Affect . Poor attention and concentration. Poor insight. Poor judgment. Poor impulse control. DIAGNOSIS: Paranoid schizophrenia. PLAN: 1. Reality orientation, which focuses on improving the cognitive function of the patient who is very confused and disorganized. Oriented to person, place, time, and situation. 2. Provided the patient with supportive psychotherapy, encouraging the patient to communicate and process his thoughts of depression with positive communication skills. . Encouraging the patient to participate in treatment milieu as well as medication regimen. 3. Plan is to maintain medication compliance with positive coping skills and stabilizing thoughts and behavior. Psychotherapeutic services 50 minutes. This clinician has reviewed the patient's chart and discussed the treatment with treatment team. Ashly Pacheco PsyD. DR: MADI JOB#: [id number] CC:
--- NOTE | 2019-01-14 01:45 | Consultation ---
DATE OF CONSULTATION: 01/13/2019 INITIAL PSYCHIATRIC EVALUATION CONSULTING PHYSICIAN: Rosalino Caraballo M.D. REFERRING PHYSICIAN: Srini Cox D.O. HISTORY OF PRESENT ILLNESS: This is a 43-year-old male patient. He came into the hospital very confused and disorganized. The patient came in because of urinary tract infection, sepsis, and chronic pain from [facility], but this patient has had a lot of psychomotor agitation and irritability. He has overlying diagnosis of paranoid schizophrenia. He has extreme mood lability and decline in cognition below his baseline, worsened by the stress of his medical illness and that is why his attending physician has requested daily psychiatric consultation for this patient. He was actually more initially, but he denied any current suicidal or homicidal ideation, he was able to contract for safety. He appeared to be very lethargic and eventually started talking and he opened up a little bit. As far as his energy, he states, "I don't feel good. I don't know what I feel." PAST MEDICAL HISTORY: He has a history of diabetes, hypertension, chronic pain, sacral wound, and paraplegia. He also had urinary tract infection, spina bifida, diabetes, and abdominal distention. He has decubitus skin ulcers, hyponatremia, and hyperkalemia and he also has hyperlipidemia. ALLERGIES: Ciprofloxacin, Haldol, Risperdal, and senna. PSYCHOTROPIC MEDICATIONS ON ADMISSION: This patient is normally on a psych med regimen consisting of trazodone 50 mg nightly, Neurontin 100 mg twice a day, Lamictal 25 mg daily, and also per chart he is on Colace as well at a dose of 5 mg once a day. Unclear if the patient has been consistent with medications at [facility]. He also is on Ativan 1 mg every four hours p.r.n. anxiety and agitation and start Prolixin 5 mg twice a day. SUBSTANCE ABUSE HISTORY: The patient denies use of any drug and alcohol use. FAMILY PSYCHIATRIC HISTORY: Denies. PAIN ASSESSMENT: 0/10. DEVELOPMENTAL PROBLEMS: Denies. SOCIAL HISTORY: The patient is currently living in a fpc called [facility]. Financially supported by [facility] and Medicare. No known family support. No legal problems. PSYCHIATRIC HISTORY: History of paranoid schizophrenia acute exacerbation, rule out schizoaffective bipolar type. He has had previous psych admissions, but he is a poor historian. STRENGTHS: He is motivated to get better and he has a place to live. WEAKNESSES: He is impulsive with minimal support system. MENTAL STATUS EXAMINATION: A 43-year-old male. Appearance is disheveled. Attitude, irritable and agitated. Affect, guarded and restricted. Intellect poor. He does not know current events, does not know the last four presidents. His mood is depressed and anxious. Motor activity, psychomotor agitation. Attention span is poor because he cannot do serial 7's or spell world backwards. Orientation x2, he is alert to person and place, but not to time and situation. Speech is nonsensical. Thought process, disorganized, illogical Thought content, he has auditory hallucinations and paranoia delusions. Perception is poor because of perceptual disturbance such as auditory hallucinations and paranoid delusions. Abstract reasoning is poor because he does not understand proverbs, he only has concrete thinking. Insight is poor because he does not recognize having psych disorder. Judgment is poor because he does not accept consequences for his action and he has poor medical decision making. Short-term memory is 2/3 of 3-word recall, so poor short-term memory. Long-term memory is intact based on his knowledge for long-term events in his life such as high school he went to. DIAGNOSES: 1. Paranoid schizophrenia with acute exacerbation. 2. Medical includes hypertension, diabetes, urinary tract infection, hyperlipidemia, and paraplegia. 3. Psychosocial stressors, financial. 4. Function impairment is moderate. PLAN: I am going to continue this patient on a psychotropic medication regimen of Neurontin at a dose of 100 mg twice a day, Prolixin 5 mg twice a day for psychosis, Ativan 1 mg every six hours p.r.n. anxiety and agitation. Twenty minutes of cognitive behavioral therapy provided to help with this patient identify his automatic negative thoughts, help him convert his negative thoughts to more positive thoughts to reduce depression, anxiety, and mood lability. I would like to thank Dr. Srini Cox for this interesting consultation. I will be happy to follow this patient with you throughout the hospital course. The patient's chart was reviewed and discussed with staff. The patient is seen and assessed at bedside. Rosalino Caraballo M.D. DR: TAL JOB#: [id number] CC:
[2019-01-14] MEDS: Ertapenem 1 GM in NS 55 ML IVPB SCH (03:19)
[2019-01-14 04:00] VITALS: BP 108/76
[2019-01-14] MEDS: LORazepam 1mg tab ORAL PRN ×3 (05:53→20:10)
[2019-01-14] MEDS: NovoLOG Insulin Flexpen SUBQ SCH ×4 (06:30→21:01)
--- NOTE | 2019-01-14 07:22 | NUR ---
HAND-OFF: Report given to OBED Cunningham.
--- NOTE | 2019-01-14 07:40 | NUR ---
NURSE NOTES: Received patient on bed, awake. IV sites appear intact and patent. patient refused to let me check dresings. Patient has suprapubic catheter which in intact and draining. No floey anchor present. Patient refuses anchor will attempt later. No signs of respiratory distress but patient states he needs oxygen. Patient states he has pain level 10/10. Will give PRN medication and ask PMD for oxygen and pRN breathing treatment orders though patient is satting in normal range. Bed in low and locked position but no mouth activated call light at patient bedside. Room board updated, will continue to monitor.
[2019-01-14 08:00] VITALS: BP 111/80
--- NOTE | 2019-01-14 08:51 | General Progress Note ---
Assessment/Plan Assessment/Plan: (1) Paraplegia (2) H/o Thoracic and Lumbar fusion (3) Neuropathic pain Pt will be continued on Methadone. We will increase the Percocet 10/325mg PO 1 tab Q4H PRN mod pain and start Morphine 4mg IV Q6H PRN severe pain. We will increase Neurontin to 200mg TID and Start Baclofen 10mg PO 1 tab Q8H PRN muscle spasm. D/w Dr. Horton and he concurred. Subjective Date patient seen: Jan 14, 2019 Time patient seen: 08:30 - am Allergies: Coded Allergies: CIPROFLOXACIN (Verified Allergy, Unknown, 06/14/18) HALOPERIDOL (Verified Allergy, Unknown, 06/14/18) RISPERIDONE (Verified Allergy, Unknown, 06/14/18) SENNA (Verified Allergy, Unknown, 06/14/18) Subjective REVIEW OF SYSTEMS: Denies rash, fever, chills, sweating, dizziness, drowsiness, blurred vision, sore throat, or change in weight. No shortness of breath or chest pain. No nausea, vomiting, diarrhea. No dysuria. He is complaining of generalized body pain. SUBJECTIVE: Patient is in a known patient from previous hospital admissions and admitted under the care of Dr. Cox due to UTI. He continues to c/o back pain and is not tolerated on the Methadone and [place] he was started on. Due to this the [place] was changed to Percocet however is having severe pain at this time. Objective Last 24 Hour Vital Signs Date Time Temp Pulse Resp B/P (MAP) Pulse Ox O2 Delivery O2 Flow Rate FiO2 01/14/19 04:00 97.5 68 18 108/76 (87) 98 01/13/19 21:00 Room Air 01/13/19 20:00 97.9 82 22 126/84 (98) 98 01/13/19 16:50 97.9 01/13/19 15:06 97.9 01/13/19 12:00 97.9 85 18 120/73 (89) 99 01/13/19 11:31 97.5 01/13/19 09:00 Room Air 01/13/19 09:00 77 110/77 Intake and Output 01/13/19 01/14/19 19:00 07:00 Intake Total 360 ml 1520 ml Output Total 1800 ml Balance 360 ml -280 ml Intake Oral 750 ml IV Total 360 ml 770 ml Output Urine Total 1800 ml Height (Feet): 5 Height (Inches): 2.00 Weight (Pounds): 181 Objective GENERAL: Alert, awake, and oriented. LUNGS: Decreased breath sounds bilaterally. HEART: S1 and S2 Regular. ABDOMEN: Tenderness to palpation. EXTREMITIES: No cyanosis. No clubbing. NEURO: Motor 0/5 in all muscles b/l Larry Quiroz Jan 14, 2019 08:51
[2019-01-14] MEDS: Aspirin EC 81mg tab ORAL SCH (08:59)
[2019-01-14] MEDS: Zinc Sulfate 220mg cap ORAL SCH (08:59)
[2019-01-14] MEDS: Docusate 100mg cap ORAL SCH (08:59)
[2019-01-14] MEDS: metFORMIN 500mg tab ORAL SCH ×2 (09:00→17:58)
[2019-01-14] MEDS: Ascorbic Acid 500mg tab ORAL SCH ×2 (09:00→17:58)
[2019-01-14] MEDS: Heparin 5000 units/ml inj SUBQ SCH ×2 (09:01→21:02)
[2019-01-14] MEDS: Metoprolol Succinate XL 25mg tab ORAL SCH (09:01)
[2019-01-14 09:24] LABS: BASOPHILS % (AUTO) 0.8 % (0.0-2.0); EOSINOPHILS % (AUTO) 2.8 % (0.0-3.0); HEMATOCRIT 37.7 % (42.0-52.0); HEMOGLOBIN 12.4 G/DL (14.2-18.0); LYMPHOCYTES % (AUTO) 19.9 % (20.0-45.0); MEAN CORPUSCULAR VOLUME 84 FL (80-99); MONOCYTES % (AUTO) 7.8 % (1.0-10.0); NEUTROPHILS % (AUTO) 68.7 % (45.0-75.0); PLATELET COUNT 243 K/UL (150-450); RED BLOOD COUNT 4.48 M/UL (4.70-6.10); RED CELL DISTRIBUTION WIDTH 16.3 % (11.6-14.8); WHITE BLOOD COUNT 8.5 K/UL (4.8-10.8)
--- NOTE | 2019-01-14 09:30 | NUR ---
NURSE NOTES: Right EJ Iv access infiltrated. IV removed and site covered.
--- NOTE | 2019-01-14 09:30 | NUR ---
NURSE NOTES: Patient now has mouth activated nurse call light at bedside. Tested call light and is functioning properly.
[2019-01-14 09:38] LABS: ANION GAP 7 mmol/L (5-15); BLOOD UREA NITROGEN 16 mg/dL (7-18); CALCIUM 8.5 MG/DL (8.5-10.1); CARBON DIOXIDE 25 MMOL/L (21-32); CHLORIDE 104 MMOL/L (98-107); CREATININE 0.6 MG/DL (0.55-1.30); POTASSIUM 4.5 MMOL/L (3.5-5.1); SODIUM 136 MMOL/L (136-145)
--- NOTE | 2019-01-14 09:51 | General Progress Note ---
Assessment/Plan Problem List: (1) Chronic pain ICD Codes: G89.29 - Other chronic pain SNOMED: 78766707 Qualifiers: Qualified Codes: G89.4 - Chronic pain syndrome (2) UTI due to extended-spectrum beta lactamase (ESBL) producing Escherichia coli ICD Codes: N39.0 - Urinary tract infection, site not specified; B96.29 - Other Escherichia coli [E. coli] as the cause of diseases classified elsewhere; Z16.12 - Extended spectrum beta lactamase (ESBL) resistance SNOMED: 841036960, 233743137 (3) Diabetes mellitus ICD Codes: E11.9 - Type 2 diabetes mellitus without complications SNOMED: 38057125 (4) Limited mobility in bed SNOMED: 953898772 (5) Sepsis ICD Codes: A41.9 - Sepsis, unspecified organism SNOMED: 17439559 (6) Paraplegia ICD Codes: G82.20 - Paraplegia, unspecified SNOMED: 66343142 Status: stable, progressing Assessment/Plan: pt diet abx cbc bmp am psyc transfer Subjective Constitutional: Reports: weakness Allergies: Coded Allergies: CIPROFLOXACIN (Verified Allergy, Unknown, 06/14/18) HALOPERIDOL (Verified Allergy, Unknown, 06/14/18) RISPERIDONE (Verified Allergy, Unknown, 06/14/18) SENNA (Verified Allergy, Unknown, 06/14/18) All Systems: reviewed and negative except above Subjective sleepy calm Objective Last 24 Hour Vital Signs Date Time Temp Pulse Resp B/P (MAP) Pulse Ox O2 Delivery O2 Flow Rate FiO2 01/14/19 09:01 73 111/80 01/14/19 04:00 97.5 68 18 108/76 (87) 98 01/13/19 21:00 Room Air 01/13/19 20:00 97.9 82 22 126/84 (98) 98 01/13/19 16:50 97.9 01/13/19 15:06 97.9 01/13/19 12:00 97.9 85 18 120/73 (89) 99 01/13/19 11:31 97.5 Intake and Output 01/13/19 01/14/19 19:00 07:00 Intake Total 360 ml 1520 ml Output Total 1800 ml Balance 360 ml -280 ml Intake Oral 750 ml IV Total 360 ml 770 ml Output Urine Total 1800 ml Laboratory Tests 01/14/19 08:45: White Blood Count 8.5, Red Blood Count 4.48L, Hemoglobin 12.4L, Hematocrit 37.7L , Mean Corpuscular Volume 84, Mean Corpuscular Hemoglobin 27.6, Mean Corpuscular Hemoglobin Concent 32.8, Red Cell Distribution Width 16.3H, Platelet Count 243, Mean Platelet Volume 5.2L, Neutrophils (%) (Auto) 68.7, Lymphocytes (%) (Auto) 19.9L, Monocytes (%) (Auto) 7.8, Eosinophils (%) (Auto) 2.8, Basophils (%) (Auto) 0.8, Sodium Level 136, Potassium Level 4.5, Chloride Level 104, Carbon Dioxide Level 25, Anion Gap 7, Blood Urea Nitrogen 16, Creatinine 0.6, Estimat Glomerular Filtration Rate > 60, Glucose Level 223H, Calcium Level 8.5 Height (Feet): 5 Height (Inches): 2.00 Weight (Pounds): 181 General Appearance: lethargic EENT: normal ENT inspection Neck: normal alignment Cardiovascular: normal peripheral pulses, normal rate, regular rhythm Respiratory/Chest: chest wall non-tender, lungs clear, normal breath sounds Abdomen: normal bowel sounds, non tender, soft Extremities: normal inspection Edema: no edema noted Arm (L), no edema noted Arm (R), no edema noted Leg (L), no edema noted Leg (R), no edema noted Pedal (L), no edema noted Pedal (R), no edema noted Generalized Neurologic: motor weakness Skin: normal pigmentation, warm/dry Srini Cox DO Jan 14, 2019 09:51
[2019-01-14] MEDS: Morphine Sulfate 4mg/ml Inj (IV USE ONLY) IVP PRN ×3 (10:10→22:20)
[2019-01-14] MEDS: Albuterol/Ipratropium 3ml neb HHN PRN (11:01)
[2019-01-14 12:00] VITALS: BP 132/81
--- NOTE | 2019-01-14 12:57 | Consultation ---
History of Present Illness General Date patient seen: Jan 14, 2019 Chief Complaint: Pelvic Pain Present Illness HPI 42 year old male with paraplegia, spina bifida, bed bound presented to ER with complaints of severe back pain and bladder spasm. He denied any chest pain or shortness of breath. His Blood sugar was elevated and he had leukocytosis and cloudy urine. Allergies: Coded Allergies: CIPROFLOXACIN (Verified Allergy, Unknown, 06/14/18) HALOPERIDOL (Verified Allergy, Unknown, 06/14/18) RISPERIDONE (Verified Allergy, Unknown, 06/14/18) SENNA (Verified Allergy, Unknown, 06/14/18) Medication History Scheduled Aspirin* (Aspir 81*), 81 MG ORAL DAILY, (Reported) Atorvastatin Calcium* (Atorvastatin Calcium*), 40 MG ORAL BEDTIME, (Reported) Docusate Sodium* (Colace*), 100 MG ORAL DAILY, (Reported) Fenofibrate Nanocrystallized (Fenofibrate), 145 MG ORAL DAILY, (Reported) Fenofibrate Nanocrystallized (Fenofibrate), 145 MG ORAL DAILY, (Reported) Fluphenazine HCl (Fluphenazine HCl), 5 MG ORAL ONCE Gabapentin* (Gabapentin*), 100 MG ORAL BID Heparin Sodium,Porcine/Pf (Heparin 1,000 Unit/10 (100/ml)), 5,000 UNIT SQ Q12HR, (Reported) Insulin Aspart (Novolog Flexpen), 0 UNITS SUBQ BEFORE MEALS AND HS Insulin Detemir (Levemir Flexpen), 15 SUBQ BIDAC, (Reported) Lactulose (Lactulose*), 30 GM ORAL THREE TIMES A DAY Lamotrigine* (Lamictal*), 25 MG ORAL DAILY, (Reported) Magnesium Oxide (Magnesium Oxide), 400 MG ORAL THREE TIMES A DAY, (Reported) Metformin Hcl* (Glucophage*), 500 MG ORAL TID, (Reported) Methadone Hcl* (Methadone*), 10 MG ORAL EVERY 8 HOURS Morphine Sulfate (Morphine Sulfate 1 mg/ml Vial), 4 MG IV EVERY 4 HOURS Oxybutynin Chloride (Oxybutynin Chloride), 10 MG ORAL TWICE A DAY, (Reported) Pantoprazole* (Pantoprazole*), 40 MG ORAL EVERY 12 HOURS, (Reported) Senna [place] Extract (Senna), 1.76 MG PO HS, (Reported) Scheduled PRN Hydromorphone Hcl (Hydromorphone Hcl), 4 MG ORAL Q4H PRN Magnesium Hydroxide* (Milk Of Magnesia*), 30 ML ORAL 3XW PRN for Constipation, ( Reported) Na Phos,M-B/Na Phos,Di-Ba* (Fleet Enema*), 133 ML RECTAL QOD PRN for Constipation, (Reported) Tizanidine Hcl (Zanaflex*), 2 MG ORAL Q12H PRN Trazodone Hcl (Desyrel), 50 MG ORAL QHS PRN Miscellaneous Medications Clonidine (Clonidine), 1 EACH TD, (Reported) [Novolog Ss], (Reported) Discontinued Medications Metformin Hcl* (Metformin Hcl*), 500 MG ORAL THREE TIMES A DAY, (Reported) Discontinued Reason: Pt stopped taking med Patient History Healthcare decision maker Resuscitation status Do Not Resuscitate Advanced Directive on File No Past Medical/Surgical History Past Medical/Surgical History: (1) Spina bifida (2) Diabetes mellitus (3) Limited mobility in bed (4) Paraplegia (5) Intractable back pain (6) Bladder spasm (7) MDD (major depressive disorder), recurrent episode, moderate (8) Chronic pain Review of Systems All Other Systems: negative except mentioned in HPI Physical Exam General Appearance: WD/WN, no apparent distress Lines, tubes and drains: peripheral HEENT: normocephalic, atraumatic, PERRL Neck: non-tender, normal alignment Respiratory/Chest: chest wall non-tender Cardiovascular/Chest: normal peripheral pulses Abdomen: normal bowel sounds Genitourinary/Rectal: normal genital exam Last 24 Hour Vital Signs Date Time Temp Pulse Resp B/P (MAP) Pulse Ox O2 Delivery O2 Flow Rate FiO2 01/14/19 10:50 80 20 99 Room Air 21 81 20 98 01/14/19 10:48 81 20 98 Room Air 21 01/14/19 09:01 73 111/80 01/14/19 09:00 Room Air 01/14/19 08:00 98.4 86 20 111/80 (90) 100 01/14/19 04:00 97.5 68 18 108/76 (87) 98 01/13/19 21:00 Room Air 01/13/19 20:00 97.9 82 22 126/84 (98) 98 01/13/19 16:50 97.9 01/13/19 15:06 97.9 Intake and Output 01/13/19 01/14/19 19:00 07:00 Intake Total 360 ml 1520 ml Output Total 1800 ml Balance 360 ml -280 ml Intake Oral 750 ml IV Total 360 ml 770 ml Output Urine Total 1800 ml Laboratory Tests Test 01/14/19 08:45 White Blood Count 8.5 K/UL (4.8-10.8) Red Blood Count 4.48 M/UL (4.70-6.10) L Hemoglobin 12.4 G/DL (14.2-18.0) L Hematocrit 37.7 % (42.0-52.0) L Mean Corpuscular Volume 84 FL (80-99) Mean Corpuscular Hemoglobin 27.6 PG (27.0-31.0) Mean Corpuscular Hemoglobin Concent 32.8 G/DL (32.0-36.0) Red Cell Distribution Width 16.3 % (11.6-14.8) H Platelet Count 243 K/UL (150-450) Mean Platelet Volume 5.2 FL (6.5-10.1) L Neutrophils (%) (Auto) 68.7 % (45.0-75.0) Lymphocytes (%) (Auto) 19.9 % (20.0-45.0) L Monocytes (%) (Auto) 7.8 % (1.0-10.0) Eosinophils (%) (Auto) 2.8 % (0.0-3.0) Basophils (%) (Auto) 0.8 % (0.0-2.0) Sodium Level 136 MMOL/L (136-145) Potassium Level 4.5 MMOL/L (3.5-5.1) Chloride Level 104 MMOL/L (98-107) Carbon Dioxide Level 25 MMOL/L (21-32) Anion Gap 7 mmol/L (5-15) Blood Urea Nitrogen 16 mg/dL (7-18) Creatinine 0.6 MG/DL (0.55-1.30) Estimat Glomerular Filtration Rate > 60 mL/min (>60) Glucose Level 223 MG/DL (74-106) H Calcium Level 8.5 MG/DL (8.5-10.1) Height (Feet): 5 Height (Inches): 2.00 Weight (Pounds): 181 Medications Current Medications Medications (Trade) Dose Ordered Sig/Trevin Route PRN Reason Start Time Stop Time Status Last Admin Dose Admin Acetaminophen (Tylenol) 650 mg Q4H PRN ORAL Mild Pain/Temp > 100.5 01/13/19 08:00 02/12/19 07:59 Acetaminophen (Tylenol) 650 mg Q6H PRN ORAL Temp > 100 01/13/19 08:00 02/12/19 07:59 Albuterol/ Ipratropium (Albuterol/ Ipratropium) 3 ml Q6H PRN HHN Shortness of Breath 01/14/19 10:15 01/19/19 10:14 01/14/19 11:01 Ascorbic Acid (Vitamin C) 500 mg TWICE A DAY ORAL 01/13/19 09:00 02/12/19 08:59 01/14/19 09:00 Aspirin (Ecotrin) 81 mg DAILY ORAL 01/13/19 09:00 02/12/19 08:59 01/14/19 08:59 Atorvastatin Calcium (Lipitor) 40 mg BEDTIME ORAL 01/13/19 21:00 02/12/19 20:59 01/13/19 20:06 Baclofen (Lioresal) 10 mg THREE TIMES A DAY PRN ORAL muscle spasm 01/14/19 09:15 02/13/19 09:14 01/14/19 11:15 Clonidine HCl (Catapres TTS-1) 1 patch QWEEK TDERMAL 01/16/19 09:00 02/15/19 08:59 Dextrose (Dextrose 50%) 25 ml Q30M PRN IV Hypoglycemia 01/13/19 08:30 02/12/19 08:29 Dextrose (Dextrose 50%) 50 ml Q30M PRN IV Hypoglycemia 01/13/19 08:30 02/12/19 08:29 Dextrose/Sodium Chloride 1,000 ml @ 60 mls/hr Q94Q48M IV 01/13/19 07:45 02/12/19 07:44 01/14/19 01:06 Diphenhydramine HCl (Benadryl) 25 mg HSPRN PRN ORAL for insomnia , itching 01/13/19 08:00 02/12/19 07:59 Docusate Sodium (Colace) 100 mg DAILY ORAL 01/13/19 09:00 02/12/19 08:59 01/14/19 08:59 Ertapenem 1 gm/ Sodium Chloride 55 ml @ 110 mls/hr Q24H IVPB 01/14/19 04:00 01/19/19 03:59 01/14/19 03:19 Famotidine (Pepcid) 20 mg BID ORAL 01/13/19 09:00 02/12/19 08:59 01/14/19 08:59 Fluphenazine HCl (Prolixin) 5 mg TWICE A DAY ORAL 01/13/19 10:15 02/12/19 10:14 01/14/19 08:59 Gabapentin (Neurontin) 200 mg TID ORAL 01/14/19 13:00 02/12/19 08:59 Heparin Sodium (Porcine) (Heparin 5000 units/ml) 5,000 units EVERY 12 HOURS SUBQ 01/13/19 21:00 02/12/19 20:59 01/14/19 09:01 Ibuprofen (Motrin) 600 mg Q6H PRN ORAL For Pain 01/13/19 08:00 02/12/19 07:59 01/13/19 14:36 Insulin Aspart (NovoLOG) BEFORE MEALS AND HS SUBQ 01/13/19 11:30 02/12/19 11:29 01/14/19 12:03 Insulin Detemir (Levemir) 14 units BEDTIME SUBQ 01/13/19 21:00 02/12/19 20:59 01/13/19 20:15 Lorazepam (Ativan) 1 mg Q6H PRN ORAL For Anxiety 01/13/19 08:30 01/20/19 08:29 01/14/19 12:00 Magnesium Hydroxide (Mom) 30 ml DAILYPRN PRN ORAL Constipation 01/13/19 08:30 02/12/19 08:29 Metformin HCl (Glucophage) 500 mg TWICE A DAY ORAL 01/13/19 09:00 02/12/19 08:59 01/14/19 09:00 Methadone HCl (Methadone HCl) 5 mg TWICE A DAY ORAL 01/13/19 18:00 01/20/19 08:43 01/14/19 09:00 Metoprolol Succinate (Toprol XL) 25 mg DAILY ORAL 01/13/19 09:00 02/12/19 08:59 01/14/19 09:01 Morphine Sulfate (Morphine Sulfate) 4 mg Q6H PRN IVP severe pain 01/14/19 09:15 01/21/19 09:14 01/14/19 10:10 Ondansetron HCl (Zofran) 4 mg Q4H PRN IVP Nausea & Vomiting 01/13/19 08:00 02/12/19 07:59 Oxycodone/ Acetaminophen (Percocet 10/325) 1 tab Q4H PRN ORAL moderate pain 01/14/19 09:15 01/21/19 09:14 Simethicone (Mylicon) 80 mg THREE TIMES A DAY PRN ORAL Abdominal cramps 01/13/19 08:00 02/12/19 07:59 Trazodone HCl (Desyrel) 50 mg QHS PRN ORAL Insomnia 01/13/19 08:00 02/12/19 07:59 Zinc Sulfate (Zinc Sulfate) 220 mg DAILY ORAL 01/13/19 09:00 02/12/19 08:59 01/14/19 08:59 Assessment/Plan Problem List: (1) UTI due to extended-spectrum beta lactamase (ESBL) producing Escherichia coli ICD Codes: N39.0 - Urinary tract infection, site not specified; B96.29 - Other Escherichia coli [E. coli] as the cause of diseases classified elsewhere; Z16.12 - Extended spectrum beta lactamase (ESBL) resistance SNOMED: 182475150, 058600882 (2) Diabetes mellitus ICD Codes: E11.9 - Type 2 diabetes mellitus without complications SNOMED: 74007301 (3) Intractable back pain ICD Codes: M54.9 - Dorsalgia, unspecified SNOMED: 116581422 (4) Bladder spasm ICD Codes: N32.89 - Other specified disorders of bladder SNOMED: 840888690 (5) Spina bifida ICD Codes: Q05.9 - Spina bifida, unspecified SNOMED: 89506372 (6) Paraplegia ICD Codes: G82.20 - Paraplegia, unspecified SNOMED: 49518648 (7) Chronic pain ICD Codes: G89.29 - Other chronic pain SNOMED: 06054373 Qualifiers: Qualified Codes: G89.4 - Chronic pain syndrome Assessment/Plan: crawford culture iv abx check urine urology evaluation sliding scale dvt prophylaxis symptomatic treatment Joao Siu MD Jan 14, 2019 12:57
--- NOTE | 2019-01-14 14:00 | NUR ---
NURSE NOTES: Attempted to place anderson anchor on patient and patient refused stating it impedes his output. I expalined the risk versus benefit to him and explained that it was nursing polict to secure any anderson lines. patient still refused. Charge nurse notified.
--- NOTE | 2019-01-14 14:22 | NUR ---
RD ASSESSMENT & RECOMMENDATIONS SEE CARE ACTIVITY FOR COMPLETE ASSESSMENT DAILY ESTIMATED NEEDS: Needs based on Bed bound, paraplegia, wound 65kg adj 23-30 kcals/kg 5077-7799 total kcals 1.25-2 g protein/kg 81-130 g total protein 25-30 mL/kg 0571-2484 total fluid mLs NUTRITION DIAGNOSIS: 1) Increased protein needs r/t wound healing as evidenced by pt w/ full thickness wounds on sacrum and BL ischium. (CURRENT DIET:[facility] MED) PO DIET RECOMMENDATIONS: CCHO LOW W/ DOUBLE PROTEIN PORTIONS ADDITIONAL RECOMMENDATIONS: 1) Wound care: add JIM BID + VIT C 250mg BID + MVI x1 daily 2) Check A1C. 3) RE-calibrate bed scale for accurate CBW 4) Diet edu as able 5) F/up w/ WC specialist [place]
--- NOTE | 2019-01-14 14:28 | NUR ---
P.T Note: P.T evaluation completed and tx initiated. Please refer to P.T evaluation for details.
--- NOTE | 2019-01-14 15:50 | Consultation ---
Consult Note Consult Note HPI: 43yo gentleman with PMH below presents with worsened catheter site pain with spasms. He states that these symptoms are consistent with his previous UTI. Denies fever, chills, nausea, vomiting. Last catheter changed early December. ROS: per HPI PMH: MDD Spina bifida Paraplegia DM Bladder spasm Meds: reviewed All: NKDA Shx: senior living resident Fhx: noncontributory VS: reviewed Gen: NAD. periodically shaking heads involuntarily HEENT: anicteric sclera CV: RRR Resp: Unlabored. no wheezes or crackles. Abd: soft. no TTP. suprapubic catheter site unable to be visualized due to pannus and pt reporting pain Ext: no LE edema Neuro: interactive Labs: reviewed Assessment: Afebrile Mild leukocytosis, SP Likely UTI UA WBC TNTC, nitrite positive UCx: GNR Plan: continue ertapenem #2 f/u Ucx bcx x2 aspiration precaution urology consult for exchanging catheter Thank you for this consult. [facility] will continue to follow the patient with you. Dianna Dhaliwal MD Jan 14, 2019 15:50
[2019-01-14 16:00] VITALS: BP 116/70
--- NOTE | 2019-01-14 16:15 | Progress Note ---
DATE: 01/14/2019 SUBJECTIVE: This is a 43-year-old male patient with urinary tract infection. This patient has some confusion, some disorganized thought process, and mood lability. He still has decline in cognition below his baseline, agitation. That is why his attending has requested daily psychiatric consultation for this patient. So he has lot of agitation due to medical problems such urinary retention. He also complains of difficulty with sleeping as well. secondary to his chronic pain. DIAGNOSIS: Paranoid schizophrenia with acute exacerbation. PLAN: Plan for this patient is to treat him with psychotropic medication regimen consisting of trazodone 50 mg at bedtime anxiety and insomnia, Ativan 1 mg every 6 hours p.r.n. anxiety and agitation, Neurontin 100 mg twice a day, Prolixin 5 mg twice a day, and a 20 minutes of cognitive behavioral therapy provided to help with this patient identify his automatic negative thoughts, help him convert his negative thoughts to more positive thoughts to reduce depression, anxiety, and mood lability. Chart reviewed. Discussed with staff. Seen and assessed at bedside. Rosalino Caraballo M.D. DR: MOLLY JOB#: [id number] CC:
--- NOTE | 2019-01-14 19:30 | NUR ---
HAND-OFF: Report given to OBED Fernandez.
[2019-01-14 20:00] VITALS: BP 121/70
--- NOTE | 2019-01-14 20:59 | NUR ---
NURSE NOTES: Patient alert and oriented, makes all needs known. Patient's comments at times inappropriate. No s/s distress noted. Has call light device within reach. Suprapubic catheter in place, draining yellow urine. Repositioned in bed. Bed in lowest position, call light within reach, bed alarm on, will continue to monitor.
[2019-01-14] MEDS: Atorvastatin 80mg tab ORAL SCH (21:01)
[2019-01-14] MEDS: Levemir Flexpen SUBQ SCH (21:02)
--- NOTE | 2019-01-14 21:51 | NUR ---
NURSE NOTES: Patient still refuses suprapubic catheter anchor and dressing around suprapubic catheter.
--- NOTE | 2019-01-14 22:55 | NUR ---
NURSE NOTES: Changed wound dressings, patient was premedicated with Morphine 4mg ivp as ordered. patient tolerated.
[2019-01-15] VITALS (7 sets, daily range): BP systolic 98–123; BP diastolic 55–79
[2019-01-15] MEDS: Ertapenem 1 GM in NS 55 ML IVPB SCH (03:28)
[2019-01-15] MEDS: Morphine Sulfate 4mg/ml Inj (IV USE ONLY) IVP PRN ×3 (04:19→20:55)
[2019-01-15] MEDS: NovoLOG Insulin Flexpen SUBQ SCH ×4 (05:50→21:18)
--- NOTE | 2019-01-15 07:29 | NUR ---
HAND-OFF: Report given to RGOELIO RAMIREZ RN. PATIENT STABLE CONDITION.
--- NOTE | 2019-01-15 07:30 | NUR ---
NURSE NOTES: Received patient in bed, awake, verbally responsive and able to make needs known. Nurse fed the patient. Patient has a mouth activated call light. Patient still refuses anchor for suprapubic cath. RN explained the risks and benefits. Bed is in lowest position. floated bilateral heels to off the load. Patient is on oxygen @2L/min via NC. Breathing is even and unlabored. Will continue plan of care.
[2019-01-15 08:40] LABS: BASOPHILS % (AUTO) 1.2 % (0.0-2.0); EOSINOPHILS % (AUTO) 3.2 % (0.0-3.0); HEMATOCRIT 33.9 % (42.0-52.0); HEMOGLOBIN 11.2 G/DL (14.2-18.0); LYMPHOCYTES % (AUTO) 24.8 % (20.0-45.0); MEAN CORPUSCULAR VOLUME 85 FL (80-99); MONOCYTES % (AUTO) 8.6 % (1.0-10.0); NEUTROPHILS % (AUTO) 62.3 % (45.0-75.0); PLATELET COUNT 200 K/UL (150-450); RED BLOOD COUNT 4.01 M/UL (4.70-6.10); RED CELL DISTRIBUTION WIDTH 16.8 % (11.6-14.8); WHITE BLOOD COUNT 7.2 K/UL (4.8-10.8)
[2019-01-15 08:48] LABS: ANION GAP 6 mmol/L (5-15); BLOOD UREA NITROGEN 14 mg/dL (7-18); CALCIUM 8.4 MG/DL (8.5-10.1); CARBON DIOXIDE 26 MMOL/L (21-32); CHLORIDE 106 MMOL/L (98-107); CREATININE 0.4 MG/DL (0.55-1.30); POTASSIUM 4.7 MMOL/L (3.5-5.1); SODIUM 138 MMOL/L (136-145)
--- NOTE | 2019-01-15 08:56 | General Progress Note ---
Assessment/Plan Assessment/Plan: (1) Paraplegia (2) H/o Thoracic and Lumbar fusion (3) Neuropathic pain Pt will be continued on Methadone, Percocet, Morphine, Neurontin and Baclofen D/w Dr. Horton and he concurred. Subjective Date patient seen: Jan 15, 2019 Time patient seen: 08:15 - am Allergies: Coded Allergies: CIPROFLOXACIN (Verified Allergy, Unknown, 06/14/18) HALOPERIDOL (Verified Allergy, Unknown, 06/14/18) RISPERIDONE (Verified Allergy, Unknown, 06/14/18) SENNA (Verified Allergy, Unknown, 06/14/18) Subjective REVIEW OF SYSTEMS: Denies rash, fever, chills, sweating, dizziness, drowsiness, blurred vision, sore throat, or change in weight. No shortness of breath or chest pain. No nausea, vomiting, diarrhea. No dysuria. He is complaining of generalized body pain. SUBJECTIVE: Patient is in bed continues to c/o pain which has been severe and tolerated on the methadone and 4 morphine. No new complaints at this time. Objective Last 24 Hour Vital Signs Date Time Temp Pulse Resp B/P (MAP) Pulse Ox O2 Delivery O2 Flow Rate FiO2 01/15/19 04:49 98.1 01/15/19 04:09 98.1 63 20 104/70 (81) 100 01/15/19 00:00 98.2 68 20 98/66 (77) 100 01/14/19 21:50 Room Air 01/14/19 20:00 99.0 80 20 121/70 (87) 99 01/14/19 16:00 98.1 83 20 116/70 (85) 100 01/14/19 12:00 98.4 87 18 132/81 (98) 100 01/14/19 10:50 80 20 99 Room Air 21 81 20 98 01/14/19 10:48 81 20 98 Room Air 21 01/14/19 09:01 73 111/80 01/14/19 09:00 Room Air Intake and Output 01/14/19 01/15/19 19:00 07:00 Intake Total 2040 ml 895 ml Output Total 2550 ml 1600 ml Balance -510 ml -705 ml Intake Oral 1320 ml 240 ml IV Total 720 ml 655 ml Output Urine Total 2550 ml 1600 ml Laboratory Tests 01/15/19 08:10: White Blood Count 7.2, Red Blood Count 4.01L, Hemoglobin 11.2L, Hematocrit 33.9L , Mean Corpuscular Volume 85, Mean Corpuscular Hemoglobin 27.9, Mean Corpuscular Hemoglobin Concent 33.0, Red Cell Distribution Width 16.8H, Platelet Count 200, Mean Platelet Volume 5.5L, Neutrophils (%) (Auto) 62.3, Lymphocytes (%) (Auto) 24.8, Monocytes (%) (Auto) 8.6, Eosinophils (%) (Auto) 3.2H, Basophils (%) (Auto) 1.2, Sodium Level 138, Potassium Level 4.7, Chloride Level 106, Carbon Dioxide Level 26, Anion Gap 6, Blood Urea Nitrogen 14, Creatinine 0.4L, Estimat Glomerular Filtration Rate > 60, Glucose Level 192H, Calcium Level 8.4L Height (Feet): 5 Height (Inches): 2.00 Weight (Pounds): 181 Objective GENERAL: Alert, awake, and oriented. LUNGS: Decreased breath sounds bilaterally. HEART: S1 and S2 Regular. ABDOMEN: Tenderness to palpation. EXTREMITIES: No cyanosis. No clubbing. NEURO: Motor 0/5 in all muscles b/l Larry Quiroz Jan 15, 2019 08:56
[2019-01-15] MEDS: Metoprolol Succinate XL 25mg tab ORAL SCH (09:00)
--- NOTE | 2019-01-15 09:10 | NUR ---
NURSE NOTES: Received wound care physician order from Dr. Cox, Dr. De La Rosa is aware. Patient was assessed by wound care nurse and dressing change done.
[2019-01-15] MEDS: Aspirin EC 81mg tab ORAL SCH (09:27)
[2019-01-15] MEDS: Zinc Sulfate 220mg cap ORAL SCH (09:28)
[2019-01-15] MEDS: Ascorbic Acid 500mg tab ORAL SCH ×2 (09:28→18:02)
[2019-01-15] MEDS: metFORMIN 500mg tab ORAL SCH ×2 (09:28→18:03)
[2019-01-15] MEDS: Docusate 100mg cap ORAL SCH (09:28)
[2019-01-15] MEDS: Heparin 5000 units/ml inj SUBQ SCH ×2 (09:29→21:17)
[2019-01-15] MEDS: D5 1/2NS 1,000 ML IV SCH (10:55)
--- NOTE | 2019-01-15 11:00 | NUR ---
NURSE NOTES: Patient did not move his bowel since 01/12/19. Dr. Lowery for consult and he put some new orders for constipation.
--- NOTE | 2019-01-15 11:20 | Pulmonology Progress Note ---
Assessment/Plan Problems: (1) UTI due to extended-spectrum beta lactamase (ESBL) producing Escherichia coli (2) Diabetes mellitus (3) Intractable back pain (4) Bladder spasm (5) Spina bifida (6) Paraplegia (7) Chronic pain Assessment/Plan doing better symptomatic treatment check electrolytes laxatives pain control f/u by psych all reviewed. Subjective ROS Limited/Unobtainable: No Interval Events: feeling better, asking for emena and Allergies: Coded Allergies: CIPROFLOXACIN (Verified Allergy, Unknown, 06/14/18) HALOPERIDOL (Verified Allergy, Unknown, 06/14/18) RISPERIDONE (Verified Allergy, Unknown, 06/14/18) SENNA (Verified Allergy, Unknown, 06/14/18) Objective Last 24 Hour Vital Signs Date Time Temp Pulse Resp B/P (MAP) Pulse Ox O2 Delivery O2 Flow Rate FiO2 01/15/19 09:00 Room Air 01/15/19 09:00 63 100/68 01/15/19 08:29 65 18 99 Nasal Cannula 2.0 28 01/15/19 08:29 99 Nasal Cannula 2.0 28 01/15/19 08:00 98.1 63 20 100/68 (79) 100 01/15/19 04:49 98.1 01/15/19 04:09 98.1 63 20 104/70 (81) 100 01/15/19 00:00 98.2 68 20 98/66 (77) 100 01/14/19 21:50 Room Air 01/14/19 20:00 99.0 80 20 121/70 (87) 99 01/14/19 16:00 98.1 83 20 116/70 (85) 100 01/14/19 12:00 98.4 87 18 132/81 (98) 100 Intake and Output 01/14/19 01/15/19 19:00 07:00 Intake Total 2040 ml 895 ml Output Total 2550 ml 1600 ml Balance -510 ml -705 ml Intake Oral 1320 ml 240 ml IV Total 720 ml 655 ml Output Urine Total 2550 ml 1600 ml General Appearance: WD/WN HEENT: normocephalic, atraumatic Respiratory/Chest: chest wall non-tender, lungs clear Cardiovascular: normal peripheral pulses, normal rate Abdomen: normal bowel sounds, soft, non tender Genitourinary: normal external genitalia Extremities: no clubbing Skin: no rash, no lesions 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 Microbiology Date/Time Source Procedure Growth Status 01/13/19 02:51 Urine,Clean Catch Urine Culture - Preliminary Klebsiella Pneumoniae Esbl Resulted Laboratory Tests 01/15/19 08:10: White Blood Count 7.2, Red Blood Count 4.01L, Hemoglobin 11.2L, Hematocrit 33.9L , Mean Corpuscular Volume 85, Mean Corpuscular Hemoglobin 27.9, Mean Corpuscular Hemoglobin Concent 33.0, Red Cell Distribution Width 16.8H, Platelet Count 200, Mean Platelet Volume 5.5L, Neutrophils (%) (Auto) 62.3, Lymphocytes (%) (Auto) 24.8, Monocytes (%) (Auto) 8.6, Eosinophils (%) (Auto) 3.2H, Basophils (%) (Auto) 1.2, Sodium Level 138, Potassium Level 4.7, Chloride Level 106, Carbon Dioxide Level 26, Anion Gap 6, Blood Urea Nitrogen 14, Creatinine 0.4L, Estimat Glomerular Filtration Rate > 60, Glucose Level 192H, Calcium Level 8.4L Current Medications Medications (Trade) Dose Ordered Sig/Trevin Route PRN Reason Start Time Stop Time Status Last Admin Dose Admin Acetaminophen (Tylenol) 650 mg Q4H PRN ORAL Mild Pain/Temp > 100.5 01/13/19 08:00 02/12/19 07:59 Acetaminophen (Tylenol) 650 mg Q6H PRN ORAL Temp > 100 01/13/19 08:00 02/12/19 07:59 Albuterol/ Ipratropium (Albuterol/ Ipratropium) 3 ml Q6H PRN HHN Shortness of Breath 01/14/19 10:15 01/19/19 10:14 01/14/19 11:01 Ascorbic Acid (Vitamin C) 500 mg TWICE A DAY ORAL 01/13/19 09:00 02/12/19 08:59 01/15/19 09:28 Aspirin (Ecotrin) 81 mg DAILY ORAL 01/13/19 09:00 02/12/19 08:59 01/15/19 09:27 Atorvastatin Calcium (Lipitor) 40 mg BEDTIME ORAL 01/13/19 21:00 02/12/19 20:59 01/14/19 21:01 Baclofen (Lioresal) 10 mg THREE TIMES A DAY PRN ORAL muscle spasm 01/14/19 09:15 02/13/19 09:14 01/14/19 11:15 Clonidine HCl (Catapres TTS-1) 1 patch QWEEK TDERMAL 01/16/19 09:00 02/15/19 08:59 Dextrose (Dextrose 50%) 25 ml Q30M PRN IV Hypoglycemia 01/13/19 08:30 02/12/19 08:29 Dextrose (Dextrose 50%) 50 ml Q30M PRN IV Hypoglycemia 01/13/19 08:30 02/12/19 08:29 Dextrose/Sodium Chloride 1,000 ml @ 60 mls/hr [id number] IV 01/13/19 07:45 02/12/19 07:44 01/15/19 10:55 Diphenhydramine HCl (Benadryl) 25 mg HSPRN PRN ORAL for insomnia , itching 01/13/19 08:00 02/12/19 07:59 Docusate Sodium (Colace) 100 mg DAILY ORAL 01/13/19 09:00 02/12/19 08:59 01/15/19 09:28 Ertapenem 1 gm/ Sodium Chloride 55 ml @ 110 mls/hr Q24H IVPB 01/14/19 04:00 01/19/19 03:59 01/15/19 03:28 Famotidine (Pepcid) 20 mg BID ORAL 01/13/19 09:00 02/12/19 08:59 01/15/19 09:28 Fluphenazine HCl (Prolixin) 5 mg TWICE A DAY ORAL 01/13/19 10:15 02/12/19 10:14 01/15/19 09:28 Gabapentin (Neurontin) 200 mg TID ORAL 01/14/19 13:00 02/12/19 08:59 01/15/19 09:27 Heparin Sodium (Porcine) (Heparin 5000 units/ml) 5,000 units EVERY 12 HOURS SUBQ 01/13/19 21:00 02/12/19 20:59 01/15/19 09:29 Ibuprofen (Motrin) 600 mg Q6H PRN ORAL For Pain 01/13/19 08:00 02/12/19 07:59 01/13/19 14:36 Insulin Aspart (NovoLOG) BEFORE MEALS AND HS SUBQ 01/13/19 11:30 02/12/19 11:29 01/15/19 05:50 Insulin Detemir (Levemir) 14 units BEDTIME SUBQ 01/13/19 21:00 02/12/19 20:59 01/14/19 21:02 Lactulose (Cephulac) 30 gm THREE TIMES A DAY ORAL 01/15/19 13:00 02/14/19 12:59 Lorazepam (Ativan) 1 mg Q6H PRN ORAL For Anxiety 01/13/19 08:30 01/20/19 08:29 01/14/19 20:10 Magnesium Hydroxide (Mom) 30 ml DAILYPRN PRN ORAL Constipation 01/13/19 08:30 02/12/19 08:29 Metformin HCl (Glucophage) 500 mg TWICE A DAY ORAL 01/13/19 09:00 02/12/19 08:59 01/15/19 09:28 Methadone HCl (Methadone HCl) 5 mg TWICE A DAY ORAL 01/13/19 18:00 01/20/19 08:43 01/15/19 09:28 Metoprolol Succinate (Toprol XL) 25 mg DAILY ORAL 01/13/19 09:00 02/12/19 08:59 01/14/19 09:01 Morphine Sulfate (Morphine Sulfate) 4 mg Q6H PRN IVP severe pain 01/14/19 09:15 01/21/19 09:14 01/15/19 04:19 Ondansetron HCl (Zofran) 4 mg Q4H PRN IVP Nausea & Vomiting 01/13/19 08:00 02/12/19 07:59 Oxycodone/ Acetaminophen (Percocet 10/325) 1 tab Q4H PRN ORAL moderate pain 01/14/19 09:15 01/21/19 09:14 01/15/19 10:48 Polyethylene Glycol (Miralax) 17 gm BEDTIME ORAL 01/15/19 21:00 02/14/19 20:59 Simethicone (Mylicon) 80 mg THREE TIMES A DAY PRN ORAL Abdominal cramps 01/13/19 08:00 02/12/19 07:59 Trazodone HCl (Desyrel) 50 mg QHS PRN ORAL Insomnia 01/13/19 08:00 02/12/19 07:59 Zinc Sulfate (Zinc Sulfate) 220 mg DAILY ORAL 01/13/19 09:00 02/12/19 08:59 01/15/19 09:28 Joao Siu MD Jan 15, 2019 11:20
[2019-01-15] MEDS: Albuterol/Ipratropium 3ml neb HHN PRN (11:22)
--- NOTE | 2019-01-15 11:23 | Consultation ---
Consult Note Consult Note see full dictation Chris Lowery MD Jan 15, 2019 11:23
[2019-01-15] MEDS: Lactulose 20gm/30ml UDC ORAL SCH ×4 (12:00→23:28)
[2019-01-15] MEDS ORDERED: Lactulose 20gm/30ml UDC ORAL SCH (13:00)
--- NOTE | 2019-01-15 13:00 | NUR ---
NURSE NOTES: Patient refused to take lactulose or miralax stating " It doesn't work.I need something else." RN explained the risks and benefits.
--- NOTE | 2019-01-15 14:00 | Progress Note ---
DATE: 01/15/2019 SUBJECTIVE: This is a 43-year-old male patient with urinary tract infection. This patient still has some psychomotor agitation and irritability, worsened by stress of his medical illness. That is why, his attending has requested daily psychiatric consultation at this time. This patient has confusion, disorganized thought process, and mood lability and has urinary tract infection as well. MENTAL STATUS EXAMINATION: This is a 43-year-old male. Appearance is disheveled. Attitude, irritable and agitated. Affect, guarded and restricted. Intellect poor. Mood, depressed and anxious. Motor activity, psychomotor agitation. Attention span is poor. Orientation x2. Speech is pressured. Thought process, disorganized and illogical. Insight and judgment is poor. DIAGNOSIS: Paranoid schizophrenia with acute exacerbation. PLAN: Plan for this patient is to treat him with medication regimen consisting of trazodone 50 mg at bedtime as needed insomnia, Ativan 1 mg every 6 hours p.r.n. anxiety and agitation, Neurontin mg twice a day, and Prolixin 5 mg twice a day. A 20 minutes of reality-based supportive psychotherapy. A 20 minutes of cognitive behavioral therapy provided to help with this patient identify his automatic negative thoughts, help him convert his negative thoughts to more positive thoughts to reduce depression, anxiety, and mood lability. Chart reviewed. Discussed with staff. Seen and assessed at bedside. Rosalino Caraballo M.D. DR: MOLLY JOB#: [id number] CC:
--- NOTE | 2019-01-15 14:30 | General Progress Note ---
Assessment/Plan Problem List: (1) Chronic pain ICD Codes: G89.29 - Other chronic pain SNOMED: 44419246 Qualifiers: Qualified Codes: G89.4 - Chronic pain syndrome (2) UTI due to extended-spectrum beta lactamase (ESBL) producing Escherichia coli ICD Codes: N39.0 - Urinary tract infection, site not specified; B96.29 - Other Escherichia coli [E. coli] as the cause of diseases classified elsewhere; Z16.12 - Extended spectrum beta lactamase (ESBL) resistance SNOMED: 473963951, 390990511 (3) Diabetes mellitus ICD Codes: E11.9 - Type 2 diabetes mellitus without complications SNOMED: 85679624 (4) Limited mobility in bed SNOMED: 076009559 (5) Sepsis ICD Codes: A41.9 - Sepsis, unspecified organism SNOMED: 48611140 (6) Paraplegia ICD Codes: G82.20 - Paraplegia, unspecified SNOMED: 50365563 Status: stable, progressing Assessment/Plan: pt diet abx cbc bmp am psyc transfer Subjective Constitutional: Reports: weakness Allergies: Coded Allergies: CIPROFLOXACIN (Verified Allergy, Unknown, 06/14/18) HALOPERIDOL (Verified Allergy, Unknown, 06/14/18) RISPERIDONE (Verified Allergy, Unknown, 06/14/18) SENNA (Verified Allergy, Unknown, 06/14/18) All Systems: reviewed and negative except above Subjective o2nc sleepy calm Objective Last 24 Hour Vital Signs Date Time Temp Pulse Resp B/P (MAP) Pulse Ox O2 Delivery O2 Flow Rate FiO2 01/15/19 12:00 97.7 75 18 123/76 (92) 100 01/15/19 11:32 69 22 100 Nasal Cannula 2.0 28 65 23 97 01/15/19 09:00 Room Air 01/15/19 09:00 63 100/68 01/15/19 08:29 65 18 99 Nasal Cannula 2.0 28 01/15/19 08:29 99 Nasal Cannula 2.0 28 01/15/19 08:00 98.1 63 20 100/68 (79) 100 01/15/19 04:49 98.1 01/15/19 04:09 98.1 63 20 104/70 (81) 100 01/15/19 00:00 98.2 68 20 98/66 (77) 100 01/14/19 21:50 Room Air 01/14/19 20:00 99.0 80 20 121/70 (87) 99 01/14/19 16:00 98.1 83 20 116/70 (85) 100 Intake and Output 01/14/19 01/15/19 19:00 07:00 Intake Total 2040 ml 895 ml Output Total 2550 ml 1600 ml Balance -510 ml -705 ml Intake Oral 1320 ml 240 ml IV Total 720 ml 655 ml Output Urine Total 2550 ml 1600 ml Laboratory Tests 01/15/19 08:10: White Blood Count 7.2, Red Blood Count 4.01L, Hemoglobin 11.2L, Hematocrit 33.9L , Mean Corpuscular Volume 85, Mean Corpuscular Hemoglobin 27.9, Mean Corpuscular Hemoglobin Concent 33.0, Red Cell Distribution Width 16.8H, Platelet Count 200, Mean Platelet Volume 5.5L, Neutrophils (%) (Auto) 62.3, Lymphocytes (%) (Auto) 24.8, Monocytes (%) (Auto) 8.6, Eosinophils (%) (Auto) 3.2H, Basophils (%) (Auto) 1.2, Sodium Level 138, Potassium Level 4.7, Chloride Level 106, Carbon Dioxide Level 26, Anion Gap 6, Blood Urea Nitrogen 14, Creatinine 0.4L, Estimat Glomerular Filtration Rate > 60, Glucose Level 192H, Calcium Level 8.4L Height (Feet): 5 Height (Inches): 2.00 Weight (Pounds): 181 General Appearance: lethargic EENT: normal ENT inspection Neck: normal alignment Cardiovascular: normal peripheral pulses, normal rate, regular rhythm Respiratory/Chest: chest wall non-tender, lungs clear, normal breath sounds Abdomen: normal bowel sounds, non tender, soft Extremities: normal inspection Edema: no edema noted Arm (L), no edema noted Arm (R), no edema noted Leg (L), no edema noted Leg (R), no edema noted Pedal (L), no edema noted Pedal (R), no edema noted Generalized Neurologic: motor weakness Skin: normal pigmentation, warm/dry Srini Cox DO Jan 15, 2019 14:30
--- NOTE | 2019-01-15 14:54 | Consultation ---
History of Present Illness General Date patient seen: Jan 15, 2019 Reason for Hospitalization: Pelvic Pain Present Illness HPI This is a very pleasant 43-year-old male with a very unfortunate history of spina bifida and associated medical comorbidities who is wheelchair and bedbound long-term resident with limited mobility in upper and lower extremities history of suprapubic catheter who presented with pelvic pain and discomfort and abdominal discomfort. On admission also identified to have decubitus ulcers. Surgery was called to evaluate and assist with care. Patient seen, patient evaluate, chart reviewed. Patient states that his superior catheter was placed years ago and he did not feel was placed properly and has been changed and recently pulled out by a nurse at his prior facility. States that it caused him discomfort and has not felt better since. Catheter with good output. Labs noted. Exam as below. Allergies: Coded Allergies: CIPROFLOXACIN (Verified Allergy, Unknown, 06/14/18) HALOPERIDOL (Verified Allergy, Unknown, 06/14/18) RISPERIDONE (Verified Allergy, Unknown, 06/14/18) SENNA (Verified Allergy, Unknown, 06/14/18) Medication History Scheduled Aspirin* (Aspir 81*), 81 MG ORAL DAILY, (Reported) Atorvastatin Calcium* (Atorvastatin Calcium*), 40 MG ORAL BEDTIME, (Reported) Docusate Sodium* (Colace*), 100 MG ORAL DAILY, (Reported) Fenofibrate Nanocrystallized (Fenofibrate), 145 MG ORAL DAILY, (Reported) Fenofibrate Nanocrystallized (Fenofibrate), 145 MG ORAL DAILY, (Reported) Fluphenazine HCl (Fluphenazine HCl), 5 MG ORAL ONCE Gabapentin* (Gabapentin*), 100 MG ORAL BID Heparin Sodium,Porcine/Pf (Heparin 1,000 Unit/10 (100/ml)), 5,000 UNIT SQ Q12HR, (Reported) Insulin Aspart (Novolog Flexpen), 0 UNITS SUBQ BEFORE MEALS AND HS Insulin Detemir (Levemir Flexpen), 15 SUBQ BIDAC, (Reported) Lactulose (Lactulose*), 30 GM ORAL THREE TIMES A DAY Lamotrigine* (Lamictal*), 25 MG ORAL DAILY, (Reported) Magnesium Oxide (Magnesium Oxide), 400 MG ORAL THREE TIMES A DAY, (Reported) Metformin Hcl* (Glucophage*), 500 MG ORAL TID, (Reported) Methadone Hcl* (Methadone*), 10 MG ORAL EVERY 8 HOURS Morphine Sulfate (Morphine Sulfate 1 mg/ml Vial), 4 MG IV EVERY 4 HOURS Oxybutynin Chloride (Oxybutynin Chloride), 10 MG ORAL TWICE A DAY, (Reported) Pantoprazole* (Pantoprazole*), 40 MG ORAL EVERY 12 HOURS, (Reported) Senna Innovation Extract (Senna), 1.76 MG PO HS, (Reported) Scheduled PRN Hydromorphone Hcl (Hydromorphone Hcl), 4 MG ORAL Q4H PRN Magnesium Hydroxide* (Milk Of Magnesia*), 30 ML ORAL 3XW PRN for Constipation, ( Reported) Na Phos,M-B/Na Phos,Di-Ba* (Fleet Enema*), 133 ML RECTAL QOD PRN for Constipation, (Reported) Tizanidine Hcl (Zanaflex*), 2 MG ORAL Q12H PRN Trazodone Hcl (Desyrel), 50 MG ORAL QHS PRN Miscellaneous Medications Clonidine (Clonidine), 1 EACH TD, (Reported) [Novolog Ss], (Reported) Discontinued Medications Metformin Hcl* (Metformin Hcl*), 500 MG ORAL THREE TIMES A DAY, (Reported) Discontinued Reason: Pt stopped taking med Patient History History Provided By: Patient, Medical Record, PMD Healthcare decision maker Resuscitation status Do Not Resuscitate Advanced Directive on File No Past Medical/Surgical History Past Medical/Surgical History: (1) Abnormal urogenital findings (2) Spina bifida (3) Diabetes mellitus (4) Limited mobility in bed (5) Sepsis (6) Paraplegia (7) Uncontrolled diabetes mellitus (8) Intractable back pain (9) Hyponatremia (10) Bladder spasm (11) MDD (major depressive disorder), recurrent episode, moderate (12) Hyperkalemia (13) Anxiety (14) Chronic pain (15) UTI due to extended-spectrum beta lactamase (ESBL) producing Escherichia coli Review of Systems Review of Symptoms General ROS: no weight loss or fever Psychological ROS: no depression or mood changes, no memory loss Ophthalmic ROS: no visual changes or eye irritation ENT ROS: no nasal congestion, hearing loss, dizziness Allergy and Immunology ROS: no allergic symptoms or urticaria Hematological and Lymphatic ROS: no swollen glands, unusual bleeding or bruising Endocrine ROS: no polyuria, polydipsia, weight changes, temperature intolerance Respiratory ROS: no cough, shortness of breath, or wheezing Cardiovascular ROS: no chest pain or dyspnea on exertion Gastrointestinal ROS: + abdominal pain, bright red blood in stool. Musculoskeletal ROS: no myalgias or arthralgias Neurological ROS: no TIA or stroke symptoms Dermatological ROS: no new or changing skin lesions, rashes or pruritis Physical Exam Physical Exam General appearance: alert, cooperative, no distress, appears stated age Head: Normocephalic, without obvious abnormality, atraumatic Eyes: conjunctivae/corneas clear. PERRL, EOM's intact. Fundi benign Throat: Lips, mucosa, and tongue normal. Teeth and gums normal Neck: supple, symmetrical, trachea midline, no adenopathy, thyroid: not enlarged, symmetric, no tenderness/mass/nodules, no carotid bruit and no JVD Lungs: clear to auscultation bilaterally Heart: regular rate and rhythm, S1, S2 normal, no murmur, click, rub or gallop Abdomen: soft, non-tender. Bowel sounds normal. No masses, no organomegaly suprapubic catheter large catheter identified on Morales bag with good drainage of clear yellow urine. Extremities: extremities normal, atraumatic, no cyanosis or edema Pulses: 2+ and symmetric Skin: Skin color, texture, turgor normal. No rashes or lesions decubitus ulcers. Neurologic: Grossly normal Last 24 Hour Vital Signs Date Time Temp Pulse Resp B/P (MAP) Pulse Ox O2 Delivery O2 Flow Rate FiO2 01/15/19 12:00 97.7 75 18 123/76 (92) 100 01/15/19 11:32 69 22 100 Nasal Cannula 2.0 28 65 23 97 01/15/19 09:00 Room Air 01/15/19 09:00 63 100/68 01/15/19 08:29 65 18 99 Nasal Cannula 2.0 28 01/15/19 08:29 99 Nasal Cannula 2.0 28 01/15/19 08:00 98.1 63 20 100/68 (79) 100 01/15/19 04:49 98.1 01/15/19 04:09 98.1 63 20 104/70 (81) 100 01/15/19 00:00 98.2 68 20 98/66 (77) 100 01/14/19 21:50 Room Air 01/14/19 20:00 99.0 80 20 121/70 (87) 99 01/14/19 16:00 98.1 83 20 116/70 (85) 100 Intake and Output 01/14/19 01/15/19 19:00 07:00 Intake Total 2040 ml 895 ml Output Total 2550 ml 1600 ml Balance -510 ml -705 ml Intake Oral 1320 ml 240 ml IV Total 720 ml 655 ml Output Urine Total 2550 ml 1600 ml Laboratory Tests Test 01/15/19 08:10 White Blood Count 7.2 K/UL (4.8-10.8) Red Blood Count 4.01 M/UL (4.70-6.10) L Hemoglobin 11.2 G/DL (14.2-18.0) L Hematocrit 33.9 % (42.0-52.0) L Mean Corpuscular Volume 85 FL (80-99) Mean Corpuscular Hemoglobin 27.9 PG (27.0-31.0) Mean Corpuscular Hemoglobin Concent 33.0 G/DL (32.0-36.0) Red Cell Distribution Width 16.8 % (11.6-14.8) H Platelet Count 200 K/UL (150-450) Mean Platelet Volume 5.5 FL (6.5-10.1) L Neutrophils (%) (Auto) 62.3 % (45.0-75.0) Lymphocytes (%) (Auto) 24.8 % (20.0-45.0) Monocytes (%) (Auto) 8.6 % (1.0-10.0) Eosinophils (%) (Auto) 3.2 % (0.0-3.0) H Basophils (%) (Auto) 1.2 % (0.0-2.0) Sodium Level 138 MMOL/L (136-145) Potassium Level 4.7 MMOL/L (3.5-5.1) Chloride Level 106 MMOL/L (98-107) Carbon Dioxide Level 26 MMOL/L (21-32) Anion Gap 6 mmol/L (5-15) Blood Urea Nitrogen 14 mg/dL (7-18) Creatinine 0.4 MG/DL (0.55-1.30) L Estimat Glomerular Filtration Rate > 60 mL/min (>60) Glucose Level 192 MG/DL (74-106) H Calcium Level 8.4 MG/DL (8.5-10.1) L Height (Feet): 5 Height (Inches): 2.00 Weight (Pounds): 181 Medications Current Medications Medications (Trade) Dose Ordered Sig/Trevin Route PRN Reason Start Time Stop Time Status Last Admin Dose Admin Acetaminophen (Tylenol) 650 mg Q4H PRN ORAL Mild Pain/Temp > 100.5 01/13/19 08:00 02/12/19 07:59 Acetaminophen (Tylenol) 650 mg Q6H PRN ORAL Temp > 100 01/13/19 08:00 02/12/19 07:59 Albuterol/ Ipratropium (Albuterol/ Ipratropium) 3 ml Q6H PRN HHN Shortness of Breath 01/14/19 10:15 01/19/19 10:14 01/15/19 11:22 Ascorbic Acid (Vitamin C) 500 mg TWICE A DAY ORAL 01/13/19 09:00 02/12/19 08:59 01/15/19 09:28 Aspirin (Ecotrin) 81 mg DAILY ORAL 01/13/19 09:00 02/12/19 08:59 01/15/19 09:27 Atorvastatin Calcium (Lipitor) 40 mg BEDTIME ORAL 01/13/19 21:00 02/12/19 20:59 01/14/19 21:01 Baclofen (Lioresal) 10 mg THREE TIMES A DAY PRN ORAL muscle spasm 01/14/19 09:15 02/13/19 09:14 01/15/19 12:53 Clonidine HCl (Catapres TTS-1) 1 patch QWEEK TDERMAL 01/16/19 09:00 02/15/19 08:59 Dextrose (Dextrose 50%) 25 ml Q30M PRN IV Hypoglycemia 01/13/19 08:30 02/12/19 08:29 Dextrose (Dextrose 50%) 50 ml Q30M PRN IV Hypoglycemia 01/13/19 08:30 02/12/19 08:29 Dextrose/Sodium Chloride 1,000 ml @ 60 mls/hr [id number] IV 01/13/19 07:45 02/12/19 07:44 01/15/19 10:55 Diphenhydramine HCl (Benadryl) 25 mg HSPRN PRN ORAL for insomnia , itching 01/13/19 08:00 02/12/19 07:59 Docusate Sodium (Colace) 100 mg DAILY ORAL 01/13/19 09:00 02/12/19 08:59 01/15/19 09:28 Ertapenem 1 gm/ Sodium Chloride 55 ml @ 110 mls/hr Q24H IVPB 01/14/19 04:00 01/19/19 03:59 01/15/19 03:28 Famotidine (Pepcid) 20 mg BID ORAL 01/13/19 09:00 02/12/19 08:59 01/15/19 09:28 Fluphenazine HCl (Prolixin) 5 mg TWICE A DAY ORAL 01/13/19 10:15 02/12/19 10:14 01/15/19 09:28 Gabapentin (Neurontin) 200 mg TID ORAL 01/14/19 13:00 02/12/19 08:59 01/15/19 12:53 Heparin Sodium (Porcine) (Heparin 5000 units/ml) 5,000 units EVERY 12 HOURS SUBQ 01/13/19 21:00 02/12/19 20:59 01/15/19 09:29 Ibuprofen (Motrin) 600 mg Q6H PRN ORAL For Pain 01/13/19 08:00 02/12/19 07:59 01/13/19 14:36 Insulin Aspart (NovoLOG) BEFORE MEALS AND HS SUBQ 01/13/19 11:30 02/12/19 11:29 01/15/19 12:07 Insulin Detemir (Levemir) 14 units BEDTIME SUBQ 01/13/19 21:00 02/12/19 20:59 01/14/19 21:02 Lactulose (Cephulac) 30 gm EVERY 6 HOURS ORAL 01/15/19 12:00 02/14/19 12:59 Lorazepam (Ativan) 1 mg Q6H PRN ORAL For Anxiety 01/13/19 08:30 01/20/19 08:29 01/14/19 20:10 Magnesium Hydroxide (Mom) 30 ml DAILYPRN PRN ORAL Constipation 01/13/19 08:30 02/12/19 08:29 Metformin HCl (Glucophage) 500 mg TWICE A DAY ORAL 01/13/19 09:00 02/12/19 08:59 01/15/19 09:28 Methadone HCl (Methadone HCl) 5 mg TWICE A DAY ORAL 01/13/19 18:00 01/20/19 08:43 01/15/19 09:28 Metoprolol Succinate (Toprol XL) 25 mg DAILY ORAL 01/13/19 09:00 02/12/19 08:59 01/14/19 09:01 Morphine Sulfate (Morphine Sulfate) 4 mg Q6H PRN IVP severe pain 01/14/19 09:15 01/21/19 09:14 01/15/19 13:46 Ondansetron HCl (Zofran) 4 mg Q4H PRN IVP Nausea & Vomiting 01/13/19 08:00 02/12/19 07:59 Oxycodone/ Acetaminophen (Percocet 10) 1 tab Q4H PRN ORAL moderate pain 01/14/19 09:15 01/21/19 09:14 01/15/19 10:48 Polyethylene Glycol (Miralax) 17 gm BEDTIME ORAL 01/15/19 21:00 02/14/19 20:59 Simethicone (Mylicon) 80 mg THREE TIMES A DAY PRN ORAL Abdominal cramps 01/13/19 08:00 02/12/19 07:59 Trazodone HCl (Desyrel) 50 mg QHS PRN ORAL Insomnia 01/13/19 08:00 02/12/19 07:59 Zinc Sulfate (Zinc Sulfate) 220 mg DAILY ORAL 01/13/19 09:00 02/12/19 08:59 01/15/19 09:28 Assessment/Plan Problem List: (1) Abdominal pain ICD Codes: R10.9 - Unspecified abdominal pain SNOMED: 05401327 (2) Pelvic pain Assessment & Plan: Patient presented complaining of worsening pelvic and abdominal discomfort. States he says suprapubic catheter for some time now and recently it was pulled out at a different facility by a nurse and felt discomfort and has not felt better since. Initial bleeding but currently no bleeding. Catheter to Morales drainage bag with clear urine. Pain believed to be potentially related to bladder spasms as he says he had them diagnosed in the past and feels that similar. On examination obese male with no acute findings catheter in place stable with some pericatheter inflammation but very minimal. No drainage no abscess. Catheter functional and stable. No acute surgical intervention recommended. Will monitor follow with recommendations. KUB ordered ICD Codes: R10.2 - Pelvic and perineal pain SNOMED: 02869572 (3) Decubital ulcer Assessment & Plan: Patient presents with multiple decubitus ulcers. He has limited mobility in his upper and lower extremities and is fairly bedbound and wheelchair-bound. Uses most functionality through blowing breathing tube. He is identified to have a 1.5 cm x 1 cm x 3 mm stage III sacral decubitus ulcer forming. No drainage periwound intact no signs of acute active inflammation or or infectious process. Patient also identified to have a right issue ulcer 3 cm x 2 cm stage III decubitus ulcer formation with granulation tissue in the base periwound intact with some erythema no drainage no purulence no signs of active infection. Bilateral heels soft and leg and legs and feet with contractures. Treatment Plan: Wash sacral and right ischial wound daily with normal saline/soap and water. Apply Thera honey or hydrogel impregnated gauze followed by foam dressing. Change daily and as needed saturation turn every 2 hours offload pressure Foam dressings on heel for protection heel protective dressings followed by offloading heel pressures with pillow Monitor for dermatitis associated incontinence and ensure to clean as necessary. Air soft mattress okay for transitioning to wheelchair when necessary Nutritional supplementation ICD Codes: L89.90 - Pressure ulcer of unspecified site, unspecified stage SNOMED: 304081663 Endy De La Rosa Jan 15, 2019 14:54
--- NOTE | 2019-01-15 14:55 | NUR ---
NURSE NOTES:WOUND CARE NOTES:Pt presented on admission with two Full Thickness Pressure Injuries Sacral and Ischial region.Full thickness sacral pressure injury(L)0.4cm x (W)0.6cm x (D)0.4cm. Base of wound is moist -pale pink. (+) epibole along borders . No exudate noted. Periwound without erythema or induration. Full thickness pressure injury R ischium. (L)0.7cm x (W)0.7cm x (D)0.6cm. Base of wound beefy red with small amt sanguineous exudate. Edges flat and adherent to base of wound. Non-blanching erythema periwound. Both heels are firm and blanchable. Pt declined Surface support mattress stating APM/ABIMAEL mattress is not comfortable.Pt educated of risks vs benefits to having support surface mattress .Pt informed of risks for wounds to further decline without pressure relief . Encouraged to comply with repositioning. Tx.Plan: Cleanse Sacral wound with Saline. Apply TheraHoney. Apply Moisture Barrier Periwound. Cover with Optifoam drsg. Change every 3 days and prn. Cleanse R ischial wound with Saline. Apply Therahoney. Apply Moisture Barrier periwound. Cover with Optifoam drsg. Change every 3 days and prn. Apply Cavilon Skin Barrier to both heels and Malleoli. Cover each site with Optifoam drsgs. Change every 7 days and prn. Reposition at least every 2hours or as tolerated. Off-load heels with pillow.
--- NOTE | 2019-01-15 15:49 | NUR ---
NURSE NOTES: RN contacted Dr. Lowery and let him know that PT refused lactulose and miralax with new order to given fleet enema sod phos daily PRN. RN also contacted Dr. Benjamin for urology consult. Dr. Benjamin said to call Dr. Mckoy who is traffic division commanding officer. RN spoke to Dr. Mckoy for urology consult for possible suprapubic cath replacement. aware.
[2019-01-15] MEDS: LORazepam 1mg tab ORAL PRN (16:10)
--- NOTE | 2019-01-15 16:10 | Infectious Diseases Prog Note ---
Assessment/Plan Assessment/Plan 43yo gentleman with PMH below presents with worsened catheter site pain with spasms. He states that these symptoms are consistent with his previous UTI. Denies fever, chills, nausea, vomiting. Last catheter changed early December. Afebrile Mild leukocytosis, SP Likely UTI pt reports monthly episodes UA WBC TNTC, nitrite positive UCx: ESBL Klebsiella Plan: continue ertapenem #3/7. recommend nitrofurantoin 100mg QHS PPX with probiotics after completion of ertapenem. discussed plan with patient. pt understands risk of resistance development and C diff. f/u Ucx bcx x2 aspiration precaution urology consult for exchanging catheter Thank you for this consult. [facility] will continue to follow the patient with you. Subjective Allergies: Coded Allergies: CIPROFLOXACIN (Verified Allergy, Unknown, 06/14/18) HALOPERIDOL (Verified Allergy, Unknown, 06/14/18) RISPERIDONE (Verified Allergy, Unknown, 06/14/18) SENNA (Verified Allergy, Unknown, 06/14/18) Subjective Afebrile. 2L NC. Pt states he still feels oozy. Pending urology consult. Objective Vital Signs Last 24 Hour Vital Signs Date Time Temp Pulse Resp B/P (MAP) Pulse Ox O2 Delivery O2 Flow Rate FiO2 01/15/19 12:00 97.7 75 18 123/76 (92) 100 01/15/19 11:32 69 22 100 Nasal Cannula 2.0 28 65 23 97 01/15/19 09:00 Room Air 01/15/19 09:00 63 100/68 01/15/19 08:29 65 18 99 Nasal Cannula 2.0 28 01/15/19 08:29 99 Nasal Cannula 2.0 28 01/15/19 08:00 98.1 63 20 100/68 (79) 100 01/15/19 04:49 98.1 01/15/19 04:09 98.1 63 20 104/70 (81) 100 01/15/19 00:00 98.2 68 20 98/66 (77) 100 01/14/19 21:50 Room Air 01/14/19 20:00 99.0 80 20 121/70 (87) 99 Height (Feet): 5 Height (Inches): 2.00 Weight (Pounds): 181 Objective Gen: NAD. periodically shaking heads involuntarily HEENT: anicteric sclera CV: RRR Resp: Unlabored. no wheezes or crackles. Abd: soft. no TTP. suprapubic catheter site unable to be visualized due to pannus and pt reporting pain Ext: no LE edema Neuro: interactive Microbiology Date/Time Source Procedure Growth Status 01/13/19 02:51 Urine,Clean Catch Urine Culture - Preliminary Klebsiella Pneumoniae Esbl Resulted Laboratory Tests Test 01/15/19 08:10 White Blood Count 7.2 K/UL (4.8-10.8) Red Blood Count 4.01 M/UL (4.70-6.10) L Hemoglobin 11.2 G/DL (14.2-18.0) L Hematocrit 33.9 % (42.0-52.0) L Mean Corpuscular Volume 85 FL (80-99) Mean Corpuscular Hemoglobin 27.9 PG (27.0-31.0) Mean Corpuscular Hemoglobin Concent 33.0 G/DL (32.0-36.0) Red Cell Distribution Width 16.8 % (11.6-14.8) H Platelet Count 200 K/UL (150-450) Mean Platelet Volume 5.5 FL (6.5-10.1) L Neutrophils (%) (Auto) 62.3 % (45.0-75.0) Lymphocytes (%) (Auto) 24.8 % (20.0-45.0) Monocytes (%) (Auto) 8.6 % (1.0-10.0) Eosinophils (%) (Auto) 3.2 % (0.0-3.0) H Basophils (%) (Auto) 1.2 % (0.0-2.0) Sodium Level 138 MMOL/L (136-145) Potassium Level 4.7 MMOL/L (3.5-5.1) Chloride Level 106 MMOL/L (98-107) Carbon Dioxide Level 26 MMOL/L (21-32) Anion Gap 6 mmol/L (5-15) Blood Urea Nitrogen 14 mg/dL (7-18) Creatinine 0.4 MG/DL (0.55-1.30) L Estimat Glomerular Filtration Rate > 60 mL/min (>60) Glucose Level 192 MG/DL (74-106) H Calcium Level 8.4 MG/DL (8.5-10.1) L Current Medications Medications (Trade) Dose Ordered Sig/Trevin Route PRN Reason Start Time Stop Time Status Last Admin Dose Admin Acetaminophen (Tylenol) 650 mg Q4H PRN ORAL Mild Pain/Temp > 100.5 01/13/19 08:00 02/12/19 07:59 Acetaminophen (Tylenol) 650 mg Q6H PRN ORAL Temp > 100 01/13/19 08:00 02/12/19 07:59 Albuterol/ Ipratropium (Albuterol/ Ipratropium) 3 ml Q6H PRN HHN Shortness of Breath 01/14/19 10:15 01/19/19 10:14 01/15/19 11:22 Ascorbic Acid (Vitamin C) 500 mg TWICE A DAY ORAL 01/13/19 09:00 02/12/19 08:59 01/15/19 09:28 Aspirin (Ecotrin) 81 mg DAILY ORAL 01/13/19 09:00 02/12/19 08:59 01/15/19 09:27 Atorvastatin Calcium (Lipitor) 40 mg BEDTIME ORAL 01/13/19 21:00 02/12/19 20:59 01/14/19 21:01 Baclofen (Lioresal) 10 mg THREE TIMES A DAY PRN ORAL muscle spasm 01/14/19 09:15 02/13/19 09:14 01/15/19 12:53 Clonidine HCl (Catapres TTS-1) 1 patch QWEEK TDERMAL 01/16/19 09:00 02/15/19 08:59 Dextrose (Dextrose 50%) 25 ml Q30M PRN IV Hypoglycemia 01/13/19 08:30 02/12/19 08:29 Dextrose (Dextrose 50%) 50 ml Q30M PRN IV Hypoglycemia 01/13/19 08:30 02/12/19 08:29 Dextrose/Sodium Chloride 1,000 ml @ 60 mls/hr [id number] IV 01/13/19 07:45 02/12/19 07:44 01/15/19 10:55 Diphenhydramine HCl (Benadryl) 25 mg HSPRN PRN ORAL for insomnia , itching 01/13/19 08:00 02/12/19 07:59 Docusate Sodium (Colace) 100 mg DAILY ORAL 01/13/19 09:00 02/12/19 08:59 11/12/19 09:28 Ertapenem 1 gm/ Sodium Chloride 55 ml @ 110 mls/hr Q24H IVPB 01/14/19 04:00 01/19/19 03:59 01/15/19 03:28 Famotidine (Pepcid) 20 mg BID ORAL 01/13/19 09:00 02/12/19 08:59 01/15/19 09:28 Fluphenazine HCl (Prolixin) 5 mg TWICE A DAY ORAL 01/13/19 10:15 02/12/19 10:14 01/15/19 09:28 Gabapentin (Neurontin) 200 mg TID ORAL 01/14/19 13:00 02/12/19 08:59 01/15/19 12:53 Heparin Sodium (Porcine) (Heparin 5000 units/ml) 5,000 units EVERY 12 HOURS SUBQ 01/13/19 21:00 02/12/19 20:59 01/15/19 09:29 Ibuprofen (Motrin) 600 mg Q6H PRN ORAL For Pain 01/13/19 08:00 02/12/19 07:59 01/13/19 14:36 Insulin Aspart (NovoLOG) BEFORE MEALS AND HS SUBQ 01/13/19 11:30 02/12/19 11:29 01/15/19 12:07 Insulin Detemir (Levemir) 14 units BEDTIME SUBQ 01/13/19 21:00 02/12/19 20:59 01/14/19 21:02 Lactulose (Cephulac) 30 gm EVERY 6 HOURS ORAL 01/15/19 12:00 02/14/19 12:59 Lorazepam (Ativan) 1 mg Q6H PRN ORAL For Anxiety 01/13/19 08:30 01/20/19 08:29 01/14/19 20:10 Magnesium Hydroxide (Mom) 30 ml DAILYPRN PRN ORAL Constipation 01/13/19 08:30 02/12/19 08:29 Metformin HCl (Glucophage) 500 mg TWICE A DAY ORAL 01/13/19 09:00 02/12/19 08:59 01/15/19 09:28 Methadone HCl (Methadone HCl) 5 mg TWICE A DAY ORAL 01/13/19 18:00 01/20/19 08:43 01/15/19 09:28 Metoprolol Succinate (Toprol XL) 25 mg DAILY ORAL 01/13/19 09:00 02/12/19 08:59 01/14/19 09:01 Morphine Sulfate (Morphine Sulfate) 4 mg Q6H PRN IVP severe pain 01/14/19 09:15 01/21/19 09:14 01/15/19 13:46 Ondansetron HCl (Zofran) 4 mg Q4H PRN IVP Nausea & Vomiting 01/13/19 08:00 02/12/19 07:59 Oxycodone/ Acetaminophen (Percocet 10/325) 1 tab Q4H PRN ORAL moderate pain 01/14/19 09:15 01/21/19 09:14 01/15/19 10:48 Polyethylene Glycol (Miralax) 17 gm BEDTIME ORAL 01/15/19 21:00 02/14/19 20:59 Simethicone (Mylicon) 80 mg THREE TIMES A DAY PRN ORAL Abdominal cramps 01/13/19 08:00 02/12/19 07:59 Sodium Phosphate (Fleet's Sodium Phosl Enema) 133 ml DAILYPRN PRN RECTAL Constipation 01/15/19 16:00 02/14/19 15:59 Trazodone HCl (Desyrel) 50 mg QHS PRN ORAL Insomnia 01/13/19 08:00 02/12/19 07:59 Zinc Sulfate (Zinc Sulfate) 220 mg DAILY ORAL 01/13/19 09:00 02/12/19 08:59 01/15/19 09:28 Dianna Dhaliwal MD Jan 15, 2019 16:10
--- NOTE | 2019-01-15 16:45 | Consultation ---
DATE OF CONSULTATION: 01/15/2019 GASTROENTEROLOGY CONSULTATION CONSULTING PHYSICIAN: Chris Lowery M.D. REFERRING PHYSICIAN: Srini Cox D.O. CHIEF COMPLAINT: Constipation. HISTORY OF PRESENT ILLNESS: This is a 43-year-old [facility]pc patient with numerous medical problems, which I will dictate in a second, who was mainly admitted to the hospital with some psychiatric problem, urine tract infection, and was found to be profoundly constipated, for GI consult requested for evaluation. PAST MEDICAL HISTORY: 1. History of chronic Morales catheter placement. 2. Recurrent UTIs. 3. Chronic pain syndrome. 4. Hyperkalemia. 5. Hypernatremia. 6. The patient has paranoid schizophrenia. ALLERGIES: Allergic to haloperidol, Risperdal, and senna. MEDICATIONS: Please see medication reconciliation list. SOCIAL HISTORY: Currently, living in a fpc. The patient denies any history of alcohol usage or drug usage. FAMILY HISTORY: Noncontributory. REVIEW OF SYSTEMS: A 10-point review of systems was performed and pertinent positives in HPI. PHYSICAL EXAMINATION: VITAL SIGNS: Temperature 98.1, pulse 60, respirations 20, and blood pressure is 100/60. HEENT: Normocephalic and atraumatic. Sclerae anicteric. NECK: Supple. No evidence of obvious lymphadenopathy. CARDIOVASCULAR: Regular rhythm. Plus S1 and S2. No obvious murmur. LUNGS: Diffuse breath sounds bilaterally based on the supine exam. ABDOMEN: Soft and nontender. No rebound. No guarding. No peritoneal sign. EXTREMITIES: No cyanosis. No clubbing. No edema. LABORATORY DATA: White count , hemoglobin 11.3, hematocrit 33, and platelet count is 200,000. Chem 7, sodium 138, potassium 4.7. BUN is 14, creatinine 0.4, glucose is 192. ASSESSMENT AND PLAN: This is a 43-year-old male with constipation associated with narcotics. The patient has so many pain medications. Our plan will be to put him on a bowel regimen including Colace, MiraLAX, lactulose. If that does not, we will give enema. We will consider giving shots if the patient does not respond to above regimen. The patient has evidence of mild normocytic anemia. We are going to order anemia workup for that. The patient also has elevated persistently glucose, we are going to order hemoglobin A1c. I want to thank, Dr. Srini Cox, for this kind referral. Chris Lowery M.D. DR: SALLIE JOB#: [id number] CC: Srini Cox D.O.
[2019-01-15] MEDS: Fleet's Enema 133ml RECTAL PRN (18:27)
--- NOTE | 2019-01-15 18:28 | NUR ---
NURSE NOTES: patient took lactulose and given fleet enema.
--- NOTE | 2019-01-15 18:45 | NUR ---
NURSE NOTES: Patient had large amount of bowel movement. Proper incontinent care done.
[2019-01-15] MEDS ORDERED: FAMOTIDINE20 MG ORAL (19:23)
[2019-01-15] MEDS ORDERED: METOPROLOL SUCC25 MG ORAL (19:26)
[2019-01-15] MEDS ORDERED: METHADONE HCL5 MG ORAL (19:34)
--- NOTE | 2019-01-15 19:38 | NUR ---
HAND-OFF: Report given to
--- NOTE | 2019-01-15 19:39 | NUR ---
NURSE NOTES: Received patient in no apparent distress. A&OX4. NC 2L on. IV site patent and intact. Supra pubic cath noted, draining well by gravity, yellow urine noted. Patient refused Morales anker and dressing for supra pubic cath area. Bed in lowest position. Call light within reach. Will continue to monitor.
[2019-01-15] MEDS ORDERED: BENADRYL25 MG ORAL (19:48)
[2019-01-15] MEDS ORDERED: SIMETHICONE80 MG ORAL (19:49)
[2019-01-15] MEDS ORDERED: NORCO 5-325 TA1 EACH ORAL (19:53)
[2019-01-15] MEDS ORDERED: ZOFRAN4 M3 ORAL (19:54)
[2019-01-15] MEDS ORDERED: IBUPROFEN600 MG ORAL (19:55)
[2019-01-15] MEDS ORDERED: CATAPRES-TTS 11 EACH TDERMAL (19:56)
[2019-01-15] MEDS ORDERED: ACETAMINOPHEN325 M1 ORAL ×2 (19:58)
[2019-01-15] MEDS ORDERED: MULTIVITAMINS1 EAC2 ORAL (20:00)
[2019-01-15] MEDS ORDERED: ASCORBIC ACID500 M4 ORAL (20:01)
[2019-01-15] MEDS ORDERED: ZINC SULFATE220 M1 ORAL (20:02)
[2019-01-15] MEDS ORDERED: MILK OF MA400 MG/51 ORAL (20:03)
[2019-01-15] MEDS ORDERED: DULCOLAX10 MG RC (20:05)
[2019-01-15] MEDS ORDERED: FLUPHENAZINE HCL5 MG ORAL (20:08)
[2019-01-15] MEDS ORDERED: ATIVAN1 MG ORAL (20:10)
[2019-01-15] MEDS ORDERED: HUMALOG100 UNIT/3 SUBQ (20:11)
[2019-01-15] MEDS: Miralax 17gm pkt ORAL SCH ×2 (21:00→21:18)
[2019-01-15] MEDS: Atorvastatin 80mg tab ORAL SCH (21:15)
[2019-01-15] MEDS: Levemir Flexpen SUBQ SCH (21:17)
[2019-01-16] VITALS: BP 125/80
[2019-01-16] MEDS: TraZODone 50mg tab ORAL PRN (02:04)
[2019-01-16] MEDS: D5 1/2NS 1,000 ML IV SCH ×2 (02:24→21:21)
[2019-01-16] MEDS: Morphine Sulfate 4mg/ml Inj (IV USE ONLY) IVP PRN ×4 (02:59→21:36)
[2019-01-16 04:00] VITALS: BP 114/71
[2019-01-16] MEDS: Ertapenem 1 GM in NS 55 ML IVPB SCH (04:26)
[2019-01-16] MEDS: Lactulose 20gm/30ml UDC ORAL SCH ×4 (06:00→17:55)
[2019-01-16] MEDS: NovoLOG Insulin Flexpen SUBQ SCH ×4 (06:08→21:25)
[2019-01-16 06:30] LABS: BASOPHILS % (AUTO) 0.9 % (0.0-2.0); EOSINOPHILS % (AUTO) 2.4 % (0.0-3.0); HEMATOCRIT 37.2 % (42.0-52.0); HEMOGLOBIN 12.1 G/DL (14.2-18.0); MEAN CORPUSCULAR VOLUME 85 FL (80-99); MONOCYTES % (AUTO) 6.5 % (1.0-10.0); NEUTROPHILS % (AUTO) 73.2 % (45.0-75.0); PLATELET COUNT 238 K/UL (150-450); RED BLOOD COUNT 4.36 M/UL (4.70-6.10); RED CELL DISTRIBUTION WIDTH 16.6 % (11.6-14.8); WHITE BLOOD COUNT 7.6 K/UL (4.8-10.8)
[2019-01-16 06:54] LABS: ALANINE AMINOTRANSFERASE 31 U/L (12-78); ALBUMIN 3.1 G/DL (3.4-5.0); ALBUMIN/GLOBULIN RATIO 0.7 (1.0-2.7); ALKALINE PHOSPHATASE 88 U/L (46-116); ANION GAP 13 mmol/L (5-15); ASPARTATE AMINO TRANSFERASE 17 U/L (15-37); BILIRUBIN,TOTAL 0.3 MG/DL (0.2-1.0); BLOOD UREA NITROGEN 13 mg/dL (7-18); CALCIUM 8.4 MG/DL (8.5-10.1); CARBON DIOXIDE 20 MMOL/L (21-32); CHLORIDE 104 MMOL/L (98-107); CREATININE 0.6 MG/DL (0.55-1.30); POTASSIUM 4.2 MMOL/L (3.5-5.1); SODIUM 137 MMOL/L (136-145)
--- NOTE | 2019-01-16 07:21 | NUR ---
HAND-OFF: Report given to Timmy CLAY.
[2019-01-16 07:41] LABS: % IRON SATURATION 19 % (15-50); IRON 50 ug/dL (50-175); TOTAL IRON BINDING CAPACITY 271 ug/dL (250-450)
--- NOTE | 2019-01-16 07:58 | NUR ---
NURSE NOTES: received report from OBED Jordan. Patient in bed. alert. oriented. verbally responsive. no respiratory distress noted. c/o pain 12/13. supura pubic cath draining. no hematuria noted. UV on RAC running fluid @60. bed in the lowest position . call light within reach. contact isloation. PPE at all times. will continue to provide plan of care.
[2019-01-16 08:00] VITALS: BP 130/61
[2019-01-16] MEDS: Docusate 100mg cap ORAL SCH (08:09)
[2019-01-16] MEDS: Aspirin EC 81mg tab ORAL SCH (08:09)
[2019-01-16] MEDS: Zinc Sulfate 220mg cap ORAL SCH (08:09)
[2019-01-16] MEDS: metFORMIN 500mg tab ORAL SCH ×2 (08:11→17:55)
[2019-01-16] MEDS: Ascorbic Acid 500mg tab ORAL SCH ×2 (08:11→17:56)
[2019-01-16] MEDS: Metoprolol Succinate XL 25mg tab ORAL SCH (08:11)
[2019-01-16] MEDS: Heparin 5000 units/ml inj SUBQ SCH ×2 (08:16→21:24)
--- NOTE | 2019-01-16 08:51 | General Progress Note ---
Assessment/Plan Assessment/Plan: (1) Paraplegia (2) H/o Thoracic and Lumbar fusion (3) Neuropathic pain Pt will be continued on Methadone, Percocet, Morphine, Neurontin and Baclofen D/w Dr. Horton and he concurred. Subjective Date patient seen: Jan 16, 2019 Time patient seen: 07:15 - am Allergies: Coded Allergies: CIPROFLOXACIN (Verified Allergy, Unknown, 06/14/18) HALOPERIDOL (Verified Allergy, Unknown, 06/14/18) POLYETHYLENE GLYCOL 3350 (Verified Allergy, Unknown, 01/16/19) per patient, makes constipation RISPERIDONE (Verified Allergy, Unknown, 06/14/18) SENNA (Verified Allergy, Unknown, 06/14/18) Subjective REVIEW OF SYSTEMS: Denies rash, fever, chills, sweating, dizziness, drowsiness, blurred vision, sore throat, or change in weight. No shortness of breath or chest pain. No nausea, vomiting, diarrhea. No dysuria. He is complaining of generalized body pain. SUBJECTIVE: Patient is in bed pain is severe tolerated on the Methadone and Morphine. Using the Percocet as needed. No new complaint at this time. Objective Last 24 Hour Vital Signs Date Time Temp Pulse Resp B/P (MAP) Pulse Ox O2 Delivery O2 Flow Rate FiO2 01/16/19 08:24 Nasal Cannula 2.0 01/16/19 08:11 101 130/61 01/16/19 08:00 97.9 101 20 130/61 (84) 99 01/16/19 04:00 97.2 99 19 114/71 (85) 99 01/16/19 00:00 97.4 84 19 125/80 (95) 99 01/15/19 21:36 98 Nasal Cannula 2.0 28 01/15/19 21:00 Room Air 01/15/19 20:00 98.1 82 21 121/79 (93) 100 01/15/19 16:00 97.9 82 19 100/55 (70) 100 01/15/19 12:00 97.7 75 18 123/76 (92) 100 01/15/19 11:32 69 22 100 Nasal Cannula 2.0 28 65 23 97 01/15/19 09:00 Room Air 01/15/19 09:00 63 100/68 Intake and Output 01/15/19 01/16/19 19:00 07:00 Intake Total 1660 ml 1715 ml Output Total 1100 ml 2250 ml Balance 560 ml -535 ml Intake Oral 1000 ml 1000 ml IV Total 660 ml 715 ml Output Urine Total 1100 ml 2250 ml # Voids 3 # Bowel Movements 1 Laboratory Tests 01/16/19 05:55: White Blood Count 7.6, Red Blood Count 4.36L, Hemoglobin 12.1L, Hematocrit 37.2L , Mean Corpuscular Volume 85, Mean Corpuscular Hemoglobin 27.8, Mean Corpuscular Hemoglobin Concent 32.6, Red Cell Distribution Width 16.6H, Platelet Count 238, Mean Platelet Volume 5.2L, Neutrophils (%) (Auto) 73.2, Lymphocytes (%) (Auto) 17.0L, Monocytes (%) (Auto) 6.5, Eosinophils (%) (Auto) 2.4, Basophils (%) (Auto) 0.9, Sodium Level 137, Potassium Level 4.2, Chloride Level 104, Carbon Dioxide Level 20L, Anion Gap 13, Blood Urea Nitrogen 13, Creatinine 0.6, Estimat Glomerular Filtration Rate > 60, Glucose Level 303#H, Hemoglobin A1c 8.4H, Calcium Level 8.4L, Iron Level 50, Total Iron Binding Capacity 271, Percent Iron Saturation 19, Unsaturated Iron Binding 221, Total Bilirubin 0.3, Aspartate Amino Transf (AST/SGOT) 17, Alanine Aminotransferase ( ALT/SGPT) 31, Alkaline Phosphatase 88, Total Protein 7.8, Albumin 3.1L, Globulin 4.7, Albumin/Globulin Ratio 0.7L, Vitamin B12 Level 327, Folate 19.7, Hepatitis A IgM Antibody [Pending], Hepatitis B Surface Antigen [Pending], Hepatitis B Core IgM Antibody [Pending], Hepatitis C Antibody [Pending] Height (Feet): 5 Height (Inches): 2.00 Weight (Pounds): 187 Objective GENERAL: Alert, awake, and oriented. LUNGS: Decreased breath sounds bilaterally. HEART: S1 and S2 Regular. ABDOMEN: Tenderness to palpation. EXTREMITIES: No cyanosis. No clubbing. NEURO: Motor 0/5 in all muscles b/l Larry Quiroz Jan 16, 2019 08:51
--- NOTE | 2019-01-16 09:15 | General Progress Note ---
Assessment/Plan Problem List: (1) Chronic pain ICD Codes: G89.29 - Other chronic pain SNOMED: 26119497 Qualifiers: Qualified Codes: G89.4 - Chronic pain syndrome (2) UTI due to extended-spectrum beta lactamase (ESBL) producing Escherichia coli ICD Codes: N39.0 - Urinary tract infection, site not specified; B96.29 - Other Escherichia coli [E. coli] as the cause of diseases classified elsewhere; Z16.12 - Extended spectrum beta lactamase (ESBL) resistance SNOMED: 782058763, 115224755 (3) Diabetes mellitus ICD Codes: E11.9 - Type 2 diabetes mellitus without complications SNOMED: 32834977 (4) Limited mobility in bed SNOMED: 158008424 (5) Sepsis ICD Codes: A41.9 - Sepsis, unspecified organism SNOMED: 27203023 (6) Paraplegia ICD Codes: G82.20 - Paraplegia, unspecified SNOMED: 13256484 Status: unchanged Assessment/Plan: pt diet abx cbc bmp am psyc transfer Subjective Constitutional: Reports: weakness Allergies: Coded Allergies: CIPROFLOXACIN (Verified Allergy, Unknown, 06/14/18) HALOPERIDOL (Verified Allergy, Unknown, 06/14/18) POLYETHYLENE GLYCOL 3350 (Verified Allergy, Unknown, 01/16/19) per patient, makes constipation RISPERIDONE (Verified Allergy, Unknown, 06/14/18) SENNA (Verified Allergy, Unknown, 06/14/18) All Systems: reviewed and negative except above Subjective o2nc sleepy calm Objective Last 24 Hour Vital Signs Date Time Temp Pulse Resp B/P (MAP) Pulse Ox O2 Delivery O2 Flow Rate FiO2 01/16/19 08:24 Nasal Cannula 2.0 01/16/19 08:11 101 130/61 01/16/19 08:00 97.9 101 20 130/61 (84) 99 01/16/19 04:00 97.2 99 19 114/71 (85) 99 01/16/19 00:00 97.4 84 19 125/80 (95) 99 01/15/19 21:36 98 Nasal Cannula 2.0 28 01/15/19 21:00 Room Air 01/15/19 20:00 98.1 82 21 121/79 (93) 100 01/15/19 16:00 97.9 82 19 100/55 (70) 100 01/15/19 12:00 97.7 75 18 123/76 (92) 100 01/15/19 11:32 69 22 100 Nasal Cannula 2.0 28 65 23 97 Intake and Output 01/15/19 01/16/19 19:00 07:00 Intake Total 1660 ml 1715 ml Output Total 1100 ml 2250 ml Balance 560 ml -535 ml Intake Oral 1000 ml 1000 ml IV Total 660 ml 715 ml Output Urine Total 1100 ml 2250 ml # Voids 3 # Bowel Movements 1 Laboratory Tests 01/16/19 05:55: White Blood Count 7.6, Red Blood Count 4.36L, Hemoglobin 12.1L, Hematocrit 37.2L , Mean Corpuscular Volume 85, Mean Corpuscular Hemoglobin 27.8, Mean Corpuscular Hemoglobin Concent 32.6, Red Cell Distribution Width 16.6H, Platelet Count 238, Mean Platelet Volume 5.2L, Neutrophils (%) (Auto) 73.2, Lymphocytes (%) (Auto) 17.0L, Monocytes (%) (Auto) 6.5, Eosinophils (%) (Auto) 2.4, Basophils (%) (Auto) 0.9, Sodium Level 137, Potassium Level 4.2, Chloride Level 104, Carbon Dioxide Level 20L, Anion Gap 13, Blood Urea Nitrogen 13, Creatinine 0.6, Estimat Glomerular Filtration Rate > 60, Glucose Level 303#H, Hemoglobin A1c 8.4H, Calcium Level 8.4L, Iron Level 50, Total Iron Binding Capacity 271, Percent Iron Saturation 19, Unsaturated Iron Binding 221, Total Bilirubin 0.3, Aspartate Amino Transf (AST/SGOT) 17, Alanine Aminotransferase ( ALT/SGPT) 31, Alkaline Phosphatase 88, Total Protein 7.8, Albumin 3.1L, Globulin 4.7, Albumin/Globulin Ratio 0.7L, Vitamin B12 Level 327, Folate 19.7, Hepatitis A IgM Antibody [Pending], Hepatitis B Surface Antigen [Pending], Hepatitis B Core IgM Antibody [Pending], Hepatitis C Antibody [Pending] Height (Feet): 5 Height (Inches): 2.00 Weight (Pounds): 187 General Appearance: lethargic EENT: normal ENT inspection Neck: normal alignment Cardiovascular: normal peripheral pulses, normal rate, regular rhythm Respiratory/Chest: chest wall non-tender, lungs clear, normal breath sounds Abdomen: normal bowel sounds, non tender, soft Extremities: normal inspection Edema: no edema noted Arm (L), no edema noted Arm (R), no edema noted Leg (L), no edema noted Leg (R), no edema noted Pedal (L), no edema noted Pedal (R), no edema noted Generalized Neurologic: motor weakness Skin: normal pigmentation, warm/dry Srini Cox DO Jan 16, 2019 09:15
[2019-01-16 12:00] VITALS: BP 104/61
--- NOTE | 2019-01-16 12:37 | Pulmonology Progress Note ---
Assessment/Plan Problems: (1) UTI due to extended-spectrum beta lactamase (ESBL) producing Escherichia coli (2) Diabetes mellitus (3) Intractable back pain (4) Bladder spasm (5) Spina bifida (6) Paraplegia (7) Chronic pain Assessment/Plan doing better symptomatic treatment check electrolytes laxatives pain control f/u by psych all reviewed. Subjective ROS Limited/Unobtainable: No Interval Events: had a bm last night Allergies: Coded Allergies: CIPROFLOXACIN (Verified Allergy, Unknown, 06/14/18) HALOPERIDOL (Verified Allergy, Unknown, 06/14/18) POLYETHYLENE GLYCOL 3350 (Verified Allergy, Unknown, 01/16/19) per patient, makes constipation RISPERIDONE (Verified Allergy, Unknown, 06/14/18) SENNA (Verified Allergy, Unknown, 06/14/18) Objective Last 24 Hour Vital Signs Date Time Temp Pulse Resp B/P (MAP) Pulse Ox O2 Delivery O2 Flow Rate FiO2 01/16/19 12:00 98.1 78 19 104/61 (75) 100 01/16/19 11:55 130/61 01/16/19 08:24 Nasal Cannula 2.0 01/16/19 08:11 101 130/61 01/16/19 08:00 97.9 101 20 130/61 (84) 99 01/16/19 07:00 97 Nasal Cannula 2.0 28 01/16/19 04:00 97.2 99 19 114/71 (85) 99 01/16/19 00:00 97.4 84 19 125/80 (95) 99 01/15/19 21:36 98 Nasal Cannula 2.0 28 01/15/19 21:00 Room Air 01/15/19 20:00 98.1 82 21 121/79 (93) 100 01/15/19 16:00 97.9 82 19 100/55 (70) 100 Intake and Output 01/15/19 01/16/19 19:00 07:00 Intake Total 1660 ml 1715 ml Output Total 1100 ml 2250 ml Balance 560 ml -535 ml Intake Oral 1000 ml 1000 ml IV Total 660 ml 715 ml Output Urine Total 1100 ml 2250 ml # Voids 3 # Bowel Movements 1 General Appearance: WD/WN HEENT: normocephalic, atraumatic Respiratory/Chest: lungs clear, no respiratory distress Cardiovascular: normal peripheral pulses, normal rate Abdomen: soft, non tender, no organomegaly Genitourinary: normal external genitalia Microbiology Date/Time Source Procedure Growth Status 01/14/19 20:15 Blood Blood Culture - Preliminary NO GROWTH AFTER 24 HOURS Resulted 01/14/19 20:00 Blood Blood Culture - Preliminary NO GROWTH AFTER 24 HOURS Resulted Laboratory Tests 01/16/19 05:55: White Blood Count 7.6, Red Blood Count 4.36L, Hemoglobin 12.1L, Hematocrit 37.2L , Mean Corpuscular Volume 85, Mean Corpuscular Hemoglobin 27.8, Mean Corpuscular Hemoglobin Concent 32.6, Red Cell Distribution Width 16.6H, Platelet Count 238, Mean Platelet Volume 5.2L, Neutrophils (%) (Auto) 73.2, Lymphocytes (%) (Auto) 17.0L, Monocytes (%) (Auto) 6.5, Eosinophils (%) (Auto) 2.4, Basophils (%) (Auto) 0.9, Sodium Level 137, Potassium Level 4.2, Chloride Level 104, Carbon Dioxide Level 20L, Anion Gap 13, Blood Urea Nitrogen 13, Creatinine 0.6, Estimat Glomerular Filtration Rate > 60, Glucose Level 303#H, Hemoglobin A1c 8.4H, Calcium Level 8.4L, Iron Level 50, Total Iron Binding Capacity 271, Percent Iron Saturation 19, Unsaturated Iron Binding 221, Total Bilirubin 0.3, Aspartate Amino Transf (AST/SGOT) 17, Alanine Aminotransferase ( ALT/SGPT) 31, Alkaline Phosphatase 88, Total Protein 7.8, Albumin 3.1L, Globulin 4.7, Albumin/Globulin Ratio 0.7L, Vitamin B12 Level 327, Folate 19.7, Hepatitis A IgM Antibody [Pending], Hepatitis B Surface Antigen [Pending], Hepatitis B Core IgM Antibody [Pending], Hepatitis C Antibody [Pending] Current Medications Medications (Trade) Dose Ordered Sig/Trevin Route PRN Reason Start Time Stop Time Status Last Admin Dose Admin Acetaminophen (Tylenol) 650 mg Q4H PRN ORAL Mild Pain/Temp > 100.5 01/13/19 08:00 02/12/19 07:59 Acetaminophen (Tylenol) 650 mg Q6H PRN ORAL Temp > 100 01/13/19 08:00 02/12/19 07:59 Albuterol/ Ipratropium (Albuterol/ Ipratropium) 3 ml Q6H PRN HHN Shortness of Breath 01/14/19 10:15 01/19/19 10:14 01/15/19 11:22 Ascorbic Acid (Vitamin C) 500 mg TWICE A DAY ORAL 01/13/19 09:00 02/12/19 08:59 01/16/19 08:11 Aspirin (Ecotrin) 81 mg DAILY ORAL 01/13/19 09:00 02/12/19 08:59 01/16/19 08:09 Atorvastatin Calcium (Lipitor) 40 mg BEDTIME ORAL 01/13/19 21:00 02/12/19 20:59 01/15/19 21:15 Baclofen (Lioresal) 10 mg THREE TIMES A DAY PRN ORAL muscle spasm 01/14/19 09:15 02/13/19 09:14 01/15/19 12:53 Clonidine HCl (Catapres TTS-1) 1 patch QWEEK TDERMAL 01/16/19 09:00 02/15/19 08:59 01/16/19 11:55 Dextrose (Dextrose 50%) 25 ml Q30M PRN IV Hypoglycemia 01/13/19 08:30 02/12/19 08:29 Dextrose (Dextrose 50%) 50 ml Q30M PRN IV Hypoglycemia 01/13/19 08:30 02/12/19 08:29 Dextrose/Sodium Chloride 1,000 ml @ 60 mls/hr [id number] IV 01/13/19 07:45 02/12/19 07:44 01/16/19 02:24 Diphenhydramine HCl (Benadryl) 25 mg HSPRN PRN ORAL for insomnia , itching 01/13/19 08:00 02/12/19 07:59 Docusate Sodium (Colace) 100 mg DAILY ORAL 01/13/19 09:00 02/12/19 08:59 01/16/19 08:09 Ertapenem 1 gm/ Sodium Chloride 55 ml @ 110 mls/hr Q24H IVPB 01/14/19 04:00 01/19/19 03:59 01/16/19 04:26 Famotidine (Pepcid) 20 mg BID ORAL 01/13/19 09:00 02/12/19 08:59 01/16/19 08:11 Fluphenazine HCl (Prolixin) 5 mg TWICE A DAY ORAL 01/13/19 10:15 02/12/19 10:14 01/16/19 08:11 Gabapentin (Neurontin) 200 mg TID ORAL 01/14/19 13:00 02/12/19 08:59 01/16/19 08:09 Heparin Sodium (Porcine) (Heparin 5000 units/ml) 5,000 units EVERY 12 HOURS SUBQ 01/13/19 21:00 02/12/19 20:59 01/16/19 08:16 Ibuprofen (Motrin) 600 mg Q6H PRN ORAL For Pain 01/13/19 08:00 02/12/19 07:59 01/13/19 14:36 Insulin Aspart (NovoLOG) BEFORE MEALS AND HS SUBQ 01/13/19 11:30 02/12/19 11:29 01/16/19 11:56 Insulin Detemir (Levemir) 14 units BEDTIME SUBQ 01/13/19 21:00 02/12/19 20:59 01/15/19 21:17 Lactulose (Cephulac) 30 gm EVERY 6 HOURS ORAL 01/15/19 12:00 02/14/19 12:59 01/16/19 11:59 Lorazepam (Ativan) 1 mg Q6H PRN ORAL For Anxiety 01/13/19 08:30 01/20/19 08:29 01/15/19 16:10 Magnesium Hydroxide (Mom) 30 ml DAILYPRN PRN ORAL Constipation 01/13/19 08:30 02/12/19 08:29 Metformin HCl (Glucophage) 500 mg TWICE A DAY ORAL 01/13/19 09:00 02/12/19 08:59 01/16/19 08:11 Methadone HCl (Methadone HCl) 5 mg TWICE A DAY ORAL 01/13/19 18:00 01/20/19 08:43 01/16/19 08:10 Metoprolol Succinate (Toprol XL) 25 mg DAILY ORAL 01/13/19 09:00 02/12/19 08:59 01/16/19 08:11 Morphine Sulfate (Morphine Sulfate) 4 mg Q6H PRN IVP severe pain 01/14/19 09:15 01/21/19 09:14 01/16/19 09:07 Ondansetron HCl (Zofran) 4 mg Q4H PRN IVP Nausea & Vomiting 01/13/19 08:00 02/12/19 07:59 Oxycodone/ Acetaminophen (Percocet 10/325) 1 tab Q4H PRN ORAL moderate pain 01/14/19 09:15 01/21/19 09:14 01/15/19 10:48 Polyethylene Glycol (Miralax) 17 gm BEDTIME ORAL 01/15/19 21:00 02/14/19 20:59 Simethicone (Mylicon) 80 mg THREE TIMES A DAY PRN ORAL Abdominal cramps 01/13/19 08:00 02/12/19 07:59 Sodium Phosphate (Fleet's Sodium Phosl Enema) 133 ml DAILYPRN PRN RECTAL Constipation 01/15/19 16:00 02/14/19 15:59 01/15/19 18:27 Trazodone HCl (Desyrel) 50 mg QHS PRN ORAL Insomnia 01/13/19 08:00 02/12/19 07:59 01/16/19 02:04 Zinc Sulfate (Zinc Sulfate) 220 mg DAILY ORAL 01/13/19 09:00 02/12/19 08:59 01/16/19 08:09 Joao Siu MD Jan 16, 2019 12:36
--- NOTE | 2019-01-16 12:48 | NUR ---
NURSE NOTES: patient refused to take lactilose 45ml. PO for constipation. patient had BM 01/15/19. seen by RADHA Hanley and will decrease the frequency of Lactulose.
--- NOTE | 2019-01-16 13:03 | GI Progress Note ---
Assessment/Plan Problems: (1) Constipation ICD Codes: K59.00 - Constipation, unspecified SNOMED: 34774765 (2) Abdominal bloating ICD Codes: R14.0 - Abdominal distension (gaseous) SNOMED: 095759345 (3) Paraplegia ICD Codes: G82.20 - Paraplegia, unspecified SNOMED: 64816261 Status: unchanged Status Narrative Discussed with Dr. Lowery. Assessment/Plan This is a 43-year-old male with constipation associated with narcotics OIC. The patient has so many pain medications. bowel regime colace, miralax, lactulose. simethicone prn for abdominal bloating enema prn for severe constipation follow up anemia work up consider relistor sq if abdominal bloating does not decrease The patient was seen and examined at bedside and all new and available data was reviewed in the patients chart. I agree with the above findings, impression and plan. (Patient seen earlier today. Signature stamp does not reflect patient encounter time.). - Chris Lowery MD Subjective Subjective abdominal bloating had BM yesterday Objective Last 24 Hour Vital Signs Date Time Temp Pulse Resp B/P (MAP) Pulse Ox O2 Delivery O2 Flow Rate FiO2 01/16/19 12:00 98.1 78 19 104/61 (75) 100 01/16/19 11:55 130/61 01/16/19 08:24 Nasal Cannula 2.0 01/16/19 08:11 101 130/61 01/16/19 08:00 97.9 101 20 130/61 (84) 99 01/16/19 07:00 97 Nasal Cannula 2.0 28 01/16/19 04:00 97.2 99 19 114/71 (85) 99 01/16/19 00:00 97.4 84 19 125/80 (95) 99 01/15/19 21:36 98 Nasal Cannula 2.0 28 01/15/19 21:00 Room Air 01/15/19 20:00 98.1 82 21 121/79 (93) 100 01/15/19 16:00 97.9 82 19 100/55 (70) 100 Intake and Output 01/15/19 01/16/19 19:00 07:00 Intake Total 1660 ml 1715 ml Output Total 1100 ml 2250 ml Balance 560 ml -535 ml Intake Oral 1000 ml 1000 ml IV Total 660 ml 715 ml Output Urine Total 1100 ml 2250 ml # Voids 3 # Bowel Movements 1 Laboratory Tests Test 01/16/19 05:55 White Blood Count 7.6 K/UL (4.8-10.8) Red Blood Count 4.36 M/UL (4.70-6.10) L Hemoglobin 12.1 G/DL (14.2-18.0) L Hematocrit 37.2 % (42.0-52.0) L Mean Corpuscular Volume 85 FL (80-99) Mean Corpuscular Hemoglobin 27.8 PG (27.0-31.0) Mean Corpuscular Hemoglobin Concent 32.6 G/DL (32.0-36.0) Red Cell Distribution Width 16.6 % (11.6-14.8) H Platelet Count 238 K/UL (150-450) Mean Platelet Volume 5.2 FL (6.5-10.1) L Neutrophils (%) (Auto) 73.2 % (45.0-75.0) Lymphocytes (%) (Auto) 17.0 % (20.0-45.0) L Monocytes (%) (Auto) 6.5 % (1.0-10.0) Eosinophils (%) (Auto) 2.4 % (0.0-3.0) Basophils (%) (Auto) 0.9 % (0.0-2.0) Sodium Level 137 MMOL/L (136-145) Potassium Level 4.2 MMOL/L (3.5-5.1) Chloride Level 104 MMOL/L (98-107) Carbon Dioxide Level 20 MMOL/L (21-32) L Anion Gap 13 mmol/L (5-15) Blood Urea Nitrogen 13 mg/dL (7-18) Creatinine 0.6 MG/DL (0.55-1.30) Estimat Glomerular Filtration Rate > 60 mL/min (>60) Glucose Level 303 MG/DL (74-106) #H Hemoglobin A1c 8.4 % (4.3-6.0) H Calcium Level 8.4 MG/DL (8.5-10.1) L Iron Level 50 ug/dL (50-175) Total Iron Binding Capacity 271 ug/dL (250-450) Percent Iron Saturation 19 % (15-50) Unsaturated Iron Binding 221 ug/dL (112-346) Total Bilirubin 0.3 MG/DL (0.2-1.0) Aspartate Amino Transf (AST/SGOT) 17 U/L (15-37) Alanine Aminotransferase (ALT/SGPT) 31 U/L (12-78) Alkaline Phosphatase 88 U/L (46-116) Total Protein 7.8 G/DL (6.4-8.2) Albumin 3.1 G/DL (3.4-5.0) L Globulin 4.7 g/dL Albumin/Globulin Ratio 0.7 (1.0-2.7) L Vitamin B12 Level 327 PG/ML (193-986) Folate 19.7 NG/ML (8.6-58.9) Hepatitis A IgM Antibody Pending Hepatitis B Surface Antigen Pending Hepatitis B Core IgM Antibody Pending Hepatitis C Antibody Pending Height (Feet): 5 Height (Inches): 2.00 Weight (Pounds): 187 General Appearance: WD/WN, no apparent distress, alert Cardiovascular: normal rate Respiratory/Chest: normal breath sounds, no respiratory distress Abdominal Exam: normal bowel sounds, non tender, soft, distended Extremities: non-tender Prasanth Steiner MEDICAL SUPERVISOR Jan 16, 2019 13:03
[2019-01-16] MEDS: LORazepam 1mg tab ORAL PRN (13:40)
--- NOTE | 2019-01-16 14:09 | NUR ---
RD ASSESSMENT & RECOMMENDATIONS SEE CARE ACTIVITY FOR COMPLETE ASSESSMENT DAILY ESTIMATED NEEDS: Needs based on Bed bound, paraplegia, wound 65kg adj 23-30 kcals/kg 3157-6424 total kcals 1.25-2 g protein/kg 81-130 g total protein 25-30 mL/kg 0164-0405 total fluid mLs NUTRITION DIAGNOSIS: 1) Increased protein needs r/t wound healing as evidenced by pt w/ full thickness wounds on sacrum and BL ischium. (CURRENT DIET: CCHO MED) PO DIET RECOMMENDATIONS: CCHO LOW W/ DOUBLE PROTEIN PORTIONS ADDITIONAL RECOMMENDATIONS: 1) Wound care: add JIM BID + VIT C 250mg BID + MVI x1 daily 2) Check A1C- 8.4 3) RE-calibrate bed scale for accurate CBW 4) Diet edu as able .
--- NOTE | 2019-01-16 14:26 | Diagnostic Imaging Report ---
Indication: Abdominal pain Comparison: 06/23/2018 Single view of the abdomen obtained Findings: Bowel gas pattern is nonspecific. No mass, ectopic calcifications, or abnormal gas collections are identified. 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 Sacroiliac joints are fused. Bones are diffusely osteopenic. Impression: No acute findings
--- NOTE | 2019-01-16 14:32 | NUR ---
RADIOLOGY DEPT., ABDOMEN X-RAY DONE.-P.DYE
--- NOTE | 2019-01-16 14:48 | Infectious Diseases Prog Note ---
Assessment/Plan Assessment/Plan 43yo gentleman with PMH below presents with worsened catheter site pain with spasms. He states that these symptoms are consistent with his previous UTI. Denies fever, chills, nausea, vomiting. Last catheter changed early December. Afebrile Mild leukocytosis, SP Likely UTI pt reports monthly episodes UA WBC TNTC, nitrite positive UCx: ESBL Klebsiella, GNR Plan: continue ertapenem #/. recommend nitrofurantoin 100mg QHS PPX with probiotics after completion of ertapenem. discussed plan with patient. pt understands risk of resistance development and C diff. f/u Ucx bcx x2 aspiration precaution pending urology consult for exchanging catheter Thank you for this consult. [facility] will continue to follow the patient with you. Subjective Allergies: Coded Allergies: CIPROFLOXACIN (Verified Allergy, Unknown, 06/14/18) HALOPERIDOL (Verified Allergy, Unknown, 06/14/18) POLYETHYLENE GLYCOL 3350 (Verified Allergy, Unknown, 01/16/19) per patient, makes constipation RISPERIDONE (Verified Allergy, Unknown, 06/14/18) SENNA (Verified Allergy, Unknown, 06/14/18) Subjective Afebrile. 2L NC. Reports suprapubic pain Objective Vital Signs Last 24 Hour Vital Signs Date Time Temp Pulse Resp B/P (MAP) Pulse Ox O2 Delivery O2 Flow Rate FiO2 01/16/19 12:00 98.1 78 19 104/61 (75) 100 01/16/19 11:55 130/61 01/16/19 08:24 Nasal Cannula 2.0 01/16/19 08:11 101 130/61 01/16/19 08:00 97.9 101 20 130/61 (84) 99 01/16/19 07:00 97 Nasal Cannula 2.0 28 01/16/19 04:00 97.2 99 19 114/71 (85) 99 01/16/19 00:00 97.4 84 19 125/80 (95) 99 01/15/19 21:36 98 Nasal Cannula 2.0 28 01/15/19 21:00 Room Air 01/15/19 20:00 98.1 82 21 121/79 (93) 100 01/15/19 16:00 97.9 82 19 100/55 (70) 100 Height (Feet): 5 Height (Inches): 2.00 Weight (Pounds): 187 Objective Gen: NAD. periodically shaking heads involuntarily HEENT: anicteric sclera CV: RRR Resp: Unlabored. no wheezes or crackles. Abd: soft. no TTP. suprapubic catheter site unable to be visualized due to pannus and pt reporting pain Ext: no LE edema Neuro: interactive Microbiology Date/Time Source Procedure Growth Status 01/14/19 20:15 Blood Blood Culture - Preliminary NO GROWTH AFTER 24 HOURS Resulted 01/14/19 20:00 Blood Blood Culture - Preliminary NO GROWTH AFTER 24 HOURS Resulted Laboratory Tests Test 01/16/19 05:55 White Blood Count 7.6 K/UL (4.8-10.8) Red Blood Count 4.36 M/UL (4.70-6.10) L Hemoglobin 12.1 G/DL (14.2-18.0) L Hematocrit 37.2 % (42.0-52.0) L Mean Corpuscular Volume 85 FL (80-99) Mean Corpuscular Hemoglobin 27.8 PG (27.0-31.0) Mean Corpuscular Hemoglobin Concent 32.6 G/DL (32.0-36.0) Red Cell Distribution Width 16.6 % (11.6-14.8) H Platelet Count 238 K/UL (150-450) Mean Platelet Volume 5.2 FL (6.5-10.1) L Neutrophils (%) (Auto) 73.2 % (45.0-75.0) Lymphocytes (%) (Auto) 17.0 % (20.0-45.0) L Monocytes (%) (Auto) 6.5 % (1.0-10.0) Eosinophils (%) (Auto) 2.4 % (0.0-3.0) Basophils (%) (Auto) 0.9 % (0.0-2.0) Sodium Level 137 MMOL/L (136-145) Potassium Level 4.2 MMOL/L (3.5-5.1) Chloride Level 104 MMOL/L (98-107) Carbon Dioxide Level 20 MMOL/L (21-32) L Anion Gap 13 mmol/L (5-15) Blood Urea Nitrogen 13 mg/dL (7-18) Creatinine 0.6 MG/DL (0.55-1.30) Estimat Glomerular Filtration Rate > 60 mL/min (>60) Glucose Level 303 MG/DL (74-106) #H Hemoglobin A1c 8.4 % (4.3-6.0) H Calcium Level 8.4 MG/DL (8.5-10.1) L Iron Level 50 ug/dL (50-175) Total Iron Binding Capacity 271 ug/dL (250-450) Percent Iron Saturation 19 % (15-50) Unsaturated Iron Binding 221 ug/dL (112-346) Total Bilirubin 0.3 MG/DL (0.2-1.0) Aspartate Amino Transf (AST/SGOT) 17 U/L (15-37) Alanine Aminotransferase (ALT/SGPT) 31 U/L (12-78) Alkaline Phosphatase 88 U/L (46-116) Total Protein 7.8 G/DL (6.4-8.2) Albumin 3.1 G/DL (3.4-5.0) L Globulin 4.7 g/dL Albumin/Globulin Ratio 0.7 (1.0-2.7) L Vitamin B12 Level 327 PG/ML (193-986) Folate 19.7 NG/ML (8.6-58.9) Hepatitis A IgM Antibody Pending Hepatitis B Surface Antigen Pending Hepatitis B Core IgM Antibody Pending Hepatitis C Antibody Pending Current Medications Medications (Trade) Dose Ordered Sig/Trevin Route PRN Reason Start Time Stop Time Status Last Admin Dose Admin Acetaminophen (Tylenol) 650 mg Q4H PRN ORAL Mild Pain/Temp > 100.5 01/13/19 08:00 02/12/19 07:59 Acetaminophen (Tylenol) 650 mg Q6H PRN ORAL Temp > 100 01/13/19 08:00 02/12/19 07:59 Albuterol/ Ipratropium (Albuterol/ Ipratropium) 3 ml Q6H PRN HHN Shortness of Breath 01/14/19 10:15 01/19/19 10:14 01/15/19 11:22 Ascorbic Acid (Vitamin C) 500 mg TWICE A DAY ORAL 01/13/19 09:00 02/12/19 08:59 01/16/19 08:11 Aspirin (Ecotrin) 81 mg DAILY ORAL 01/13/19 09:00 02/12/19 08:59 01/16/19 08:09 Atorvastatin Calcium (Lipitor) 40 mg BEDTIME ORAL 01/13/19 21:00 02/12/19 20:59 01/15/19 21:15 Baclofen (Lioresal) 10 mg THREE TIMES A DAY PRN ORAL muscle spasm 01/14/19 09:15 02/13/19 09:14 01/15/19 12:53 Clonidine HCl (Catapres TTS-1) 1 patch QWEEK TDERMAL 01/16/19 09:00 02/15/19 08:59 01/16/19 11:55 Dextrose (Dextrose 50%) 25 ml Q30M PRN IV Hypoglycemia 01/13/19 08:30 02/12/19 08:29 Dextrose (Dextrose 50%) 50 ml Q30M PRN IV Hypoglycemia 01/13/19 08:30 02/12/19 08:29 Dextrose/Sodium Chloride 1,000 ml @ 60 mls/hr [id number] IV 01/13/19 07:45 02/12/19 07:44 01/16/19 02:24 Diphenhydramine HCl (Benadryl) 25 mg HSPRN PRN ORAL for insomnia , itching 01/13/19 08:00 02/12/19 07:59 Docusate Sodium (Colace) 100 mg DAILY ORAL 01/13/19 09:00 02/12/19 08:59 01/16/19 08:09 Ertapenem 1 gm/ Sodium Chloride 55 ml @ 110 mls/hr Q24H IVPB 01/14/19 04:00 01/19/19 03:59 01/16/19 04:26 Famotidine (Pepcid) 20 mg BID ORAL 01/13/19 09:00 02/12/19 08:59 01/16/19 08:11 Fluphenazine HCl (Prolixin) 5 mg TWICE A DAY ORAL 01/13/19 10:15 02/12/19 10:14 01/16/19 08:11 Gabapentin (Neurontin) 200 mg TID ORAL 01/14/19 13:00 02/12/19 08:59 01/16/19 12:41 Heparin Sodium (Porcine) (Heparin 5000 units/ml) 5,000 units EVERY 12 HOURS SUBQ 01/13/19 21:00 02/12/19 20:59 01/16/19 08:16 Ibuprofen (Motrin) 600 mg Q6H PRN ORAL For Pain 01/13/19 08:00 02/12/19 07:59 01/13/19 14:36 Insulin Aspart (NovoLOG) BEFORE MEALS AND HS SUBQ 01/13/19 11:30 02/12/19 11:29 01/16/19 11:56 Insulin Detemir (Levemir) 14 units BEDTIME SUBQ 01/13/19 21:00 02/12/19 20:59 01/15/19 21:17 Lactulose (Cephulac) 30 gm BID ORAL 01/16/19 18:00 02/14/19 12:59 Lorazepam (Ativan) 1 mg Q6H PRN ORAL For Anxiety 01/13/19 08:30 01/20/19 08:29 01/16/19 13:40 Magnesium Hydroxide (Mom) 30 ml DAILYPRN PRN ORAL Constipation 01/13/19 08:30 02/12/19 08:29 Metformin HCl (Glucophage) 500 mg TWICE A DAY ORAL 01/13/19 09:00 02/12/19 08:59 01/16/19 08:11 Methadone HCl (Methadone HCl) 5 mg TWICE A DAY ORAL 01/13/19 18:00 01/20/19 08:43 01/16/19 08:10 Metoprolol Succinate (Toprol XL) 25 mg DAILY ORAL 01/13/19 09:00 02/12/19 08:59 01/16/19 08:11 Morphine Sulfate (Morphine Sulfate) 4 mg Q6H PRN IVP severe pain 01/14/19 09:15 01/21/19 09:14 01/16/19 09:07 Ondansetron HCl (Zofran) 4 mg Q4H PRN IVP Nausea & Vomiting 01/13/19 08:00 02/12/19 07:59 Oxycodone/ Acetaminophen (Percocet 10/325) 1 tab Q4H PRN ORAL moderate pain 01/14/19 09:15 01/21/19 09:14 01/15/19 10:48 Polyethylene Glycol (Miralax) 17 gm BEDTIME ORAL 01/15/19 21:00 02/14/19 20:59 Simethicone (Mylicon) 80 mg THREE TIMES A DAY PRN ORAL Abdominal cramps 01/13/19 08:00 02/12/19 07:59 Sodium Phosphate (Fleet's Sodium Phosl Enema) 133 ml DAILYPRN PRN RECTAL Constipation 01/15/19 16:00 02/14/19 15:59 01/15/19 18:27 Trazodone HCl (Desyrel) 50 mg QHS PRN ORAL Insomnia 01/13/19 08:00 02/12/19 07:59 01/16/19 02:04 Zinc Sulfate (Zinc Sulfate) 220 mg DAILY ORAL 01/13/19 09:00 02/12/19 08:59 01/16/19 08:09 Dianna Dhaliwal MD Jan 16, 2019 14:48
--- NOTE | 2019-01-16 15:53 | Surgery Progress Note ---
Surgery Progress Note Subjective Additional Comments comfortable listening to rock music which he likes no n/v/f/c uop good and claer Objective Last 24 Hour Vital Signs Date Time Temp Pulse Resp B/P (MAP) Pulse Ox O2 Delivery O2 Flow Rate FiO2 01/16/19 12:00 98.1 78 19 104/61 (75) 100 01/16/19 11:55 130/61 01/16/19 08:24 Nasal Cannula 2.0 01/16/19 08:11 101 130/61 01/16/19 08:00 97.9 101 20 130/61 (84) 99 01/16/19 07:00 97 Nasal Cannula 2.0 28 01/16/19 04:00 97.2 99 19 114/71 (85) 99 01/16/19 00:00 97.4 84 19 125/80 (95) 99 01/15/19 21:36 98 Nasal Cannula 2.0 28 01/15/19 21:00 Room Air 01/15/19 20:00 98.1 82 21 121/79 (93) 100 01/15/19 16:00 97.9 82 19 100/55 (70) 100 I&O Intake and Output 01/15/19 01/16/19 19:00 07:00 Intake Total 1660 ml 1715 ml Output Total 1100 ml 2250 ml Balance 560 ml -535 ml Intake Oral 1000 ml 1000 ml IV Total 660 ml 715 ml Output Urine Total 1100 ml 2250 ml # Voids 3 # Bowel Movements 1 Dressing: saturated Wound: other Drains: other Cardiovascular: RSR Respiratory: decreased breath sounds Abdomen: soft, present bowel sounds Extremities: no cyanosis Laboratory Tests Test 01/16/19 05:55 White Blood Count 7.6 K/UL (4.8-10.8) Red Blood Count 4.36 M/UL (4.70-6.10) L Hemoglobin 12.1 G/DL (14.2-18.0) L Hematocrit 37.2 % (42.0-52.0) L Mean Corpuscular Volume 85 FL (80-99) Mean Corpuscular Hemoglobin 27.8 PG (27.0-31.0) Mean Corpuscular Hemoglobin Concent 32.6 G/DL (32.0-36.0) Red Cell Distribution Width 16.6 % (11.6-14.8) H Platelet Count 238 K/UL (150-450) Mean Platelet Volume 5.2 FL (6.5-10.1) L Neutrophils (%) (Auto) 73.2 % (45.0-75.0) Lymphocytes (%) (Auto) 17.0 % (20.0-45.0) L Monocytes (%) (Auto) 6.5 % (1.0-10.0) Eosinophils (%) (Auto) 2.4 % (0.0-3.0) Basophils (%) (Auto) 0.9 % (0.0-2.0) Sodium Level 137 MMOL/L (136-145) Potassium Level 4.2 MMOL/L (3.5-5.1) Chloride Level 104 MMOL/L (98-107) Carbon Dioxide Level 20 MMOL/L (21-32) L Anion Gap 13 mmol/L (5-15) Blood Urea Nitrogen 13 mg/dL (7-18) Creatinine 0.6 MG/DL (0.55-1.30) Estimat Glomerular Filtration Rate > 60 mL/min (>60) Glucose Level 303 MG/DL (74-106) #H Hemoglobin A1c 8.4 % (4.3-6.0) H Calcium Level 8.4 MG/DL (8.5-10.1) L Iron Level 50 ug/dL (50-175) Total Iron Binding Capacity 271 ug/dL (250-450) Percent Iron Saturation 19 % (15-50) Unsaturated Iron Binding 221 ug/dL (112-346) Total Bilirubin 0.3 MG/DL (0.2-1.0) Aspartate Amino Transf (AST/SGOT) 17 U/L (15-37) Alanine Aminotransferase (ALT/SGPT) 31 U/L (12-78) Alkaline Phosphatase 88 U/L (46-116) Total Protein 7.8 G/DL (6.4-8.2) Albumin 3.1 G/DL (3.4-5.0) L Globulin 4.7 g/dL Albumin/Globulin Ratio 0.7 (1.0-2.7) L Vitamin B12 Level 327 PG/ML (193-986) Folate 19.7 NG/ML (8.6-58.9) Hepatitis A IgM Antibody Pending Hepatitis B Surface Antigen Pending Hepatitis B Core IgM Antibody Pending Hepatitis C Antibody Pending Plan Problems: (1) Abdominal pain (2) Pelvic pain Assessment & Plan: Patient presented complaining of worsening pelvic and abdominal discomfort. States he says suprapubic catheter for some time now and recently it was pulled out at a different facility by a nurse and felt discomfort and has not felt better since. Initial bleeding but currently no bleeding. Catheter to Morales drainage bag with clear urine. Pain believed to be potentially related to bladder spasms as he says he had them diagnosed in the past and feels that similar. On examination obese male with no acute findings catheter in place stable with some pericatheter inflammation but very minimal. No drainage no abscess. Catheter functional and stable. No acute surgical intervention recommended. Will monitor follow with recommendations. KUB Bowel gas pattern is nonspecific. No mass, ectopic calcifications, or abnormal gas collections are identified. 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 Sacroiliac joints are fused. Bones are diffusely osteopenic. Impression: No acute findings (3) Decubital ulcer Assessment & Plan: Patient presents with multiple decubitus ulcers. He has limited mobility in his upper and lower extremities and is fairly bedbound and wheelchair-bound. Uses most functionality through blowing breathing tube. He is identified to have a 1.5 cm x 1 cm x 3 mm stage III sacral decubitus ulcer forming. No drainage periwound intact no signs of acute active inflammation or or infectious process. Patient also identified to have a right issue ulcer 3 cm x 2 cm stage III decubitus ulcer formation with granulation tissue in the base periwound intact with some erythema no drainage no purulence no signs of active infection. Bilateral heels soft and leg and legs and feet with contractures. Treatment Plan: Wash sacral and right ischial wound daily with normal saline/soap and water. Apply Thera honey or hydrogel impregnated gauze followed by foam dressing. Change daily and as needed saturation turn every 2 hours offload pressure Foam dressings on heel for protection heel protective dressings followed by offloading heel pressures with pillow Monitor for dermatitis associated incontinence and ensure to clean as necessary. Air soft mattress okay for transitioning to wheelchair when necessary Nutritional supplementation DAILY ESTIMATED NEEDS: Needs based on Bed bound, paraplegia, wound 65kg adj 23-30 kcals/kg [id number] total kcals 1.25-2 g protein/kg 81-130 g total protein 25-30 mL/kg 5637-2625 total fluid mLs NUTRITION DIAGNOSIS: 1) Increased protein needs r/t wound healing as evidenced by pt w/ full thickness wounds on sacrum and BL ischium. (CURRENT DIET: CCHO MED) PO DIET RECOMMENDATIONS: CCHO LOW W/ DOUBLE PROTEIN PORTIONS ADDITIONAL RECOMMENDATIONS: 1) Wound care: add JIM BID + VIT C 250mg BID + MVI x1 daily 2) Check A1C- 8.4 3) RE-calibrate bed scale for accurate CBW 4) Diet edu as able . Endy De La Rosa Jan 16, 2019 15:53
[2019-01-16 16:00] VITALS: BP 123/77
--- NOTE | 2019-01-16 16:45 | Progress Note ---
DATE: 01/16/2019 SUBJECTIVE: This is a 43-year-old male patient. This patient has urinary tract infection and he also has some confusion, some disorganized thought process, and decline in cognition below his baseline. He continues to have some mood lability and confusion. He has urinary tract infection, sepsis, and also chronic pain, but he is still very lethargic. He has been depressed, confused, has some mood lability. DIAGNOSIS: Paranoid schizophrenia with acute exacerbation. PLAN: Plan for this patient is to treat this patient with a medication regimen consisting of trazodone 50 mg nightly p.r.n. insomnia, Ativan 1 every 6 hours p.r.n. anxiety and agitation, Neurontin 200 mg three times a day, and Prolixin 5 mg twice a day. 20 minutes of reality-based supportive psychotherapy and 20 minutes of cognitive behavioral therapy to help him identify his automatic negative thoughts and help him convert negative thoughts to more positive thoughts to reduce depression, anxiety, and mood lability. Chart reviewed. Discussed with staff. Seen and assessed at bedside. Rosalino Caraballo M.D. DR: CONSTANZA JOB#: [id number] CC:
--- NOTE | 2019-01-16 17:00 | NUR ---
NURSE NOTES: patient refused to clean and change dressing. RN explained risks and benefits.
--- NOTE | 2019-01-16 18:00 | Progress Note ---
DATE: 01/16/2019 Addendum A 20 minutes of cognitive behavioral therapy was provided to help him identify automatic negative thoughts and help convert those negative thoughts to more positive thoughts to reduce depression, anxiety, mood lability. Chart reviewed. Discussed with staff. Seen and assessed in room. Rosalino Caraballo M.D. DR: Joi JOB#: [id number] CC:
--- NOTE | 2019-01-16 19:22 | NUR ---
HAND-OFF: Report given to OBED Mantilla.
--- NOTE | 2019-01-16 19:30 | NUR ---
NURSE NOTES: received report from OBED Warner. Patient in bed. alert. oriented x4. verbally responsive. no respiratory distress noted. c/o pain 10/10. suprapubic cath draining. no hematuria noted. IV on RAC running fluid @60. bed in the lowest position. call light within reach. contact isolation precautions in place. PPE at all times. will continue to provide plan of care. Pt is quadriplegic and has a mouth piece that he uses to turn on the call light. Pt is repositioned as asked. Will continue to monitor. Pt refused sacral dressing despite sacral sore, educated pt but still refused
[2019-01-16 20:00] VITALS: BP 114/75
[2019-01-16] MEDS: Miralax 17gm pkt ORAL SCH (21:00)
[2019-01-16] MEDS: Atorvastatin 80mg tab ORAL SCH (21:22)
[2019-01-16] MEDS: Levemir Flexpen SUBQ SCH (21:24)
[2019-01-16] MEDS: Albuterol/Ipratropium 3ml neb HHN PRN (21:32)
[2019-01-17] VITALS (7 sets, daily range): BP systolic 92–128; BP diastolic 51–78
[2019-01-17] MEDS: Ertapenem 1 GM in NS 55 ML IVPB SCH (04:10)
[2019-01-17] MEDS: NovoLOG Insulin Flexpen SUBQ SCH ×4 (06:20→21:50)
--- NOTE | 2019-01-17 07:30 | NUR ---
NURSE NOTES: Received pt from TITO CLAY. Pt is awake and orient. pt has NC 2LMP. pt has intact iv access RAC 20G is running well. all needs attended, bed is locked and is in the lowest position, call light within easy reach. will continue to monitor.
--- NOTE | 2019-01-17 07:58 | NUR ---
HAND-OFF: Report given to OBED Taylor.
--- NOTE | 2019-01-17 08:10 | NUR ---
NURSE NOTES: it was due time for methadone to give pt , RN pulled out methadone from [facility] but pt refused and asked for morphine, methadone returned to [facility].
[2019-01-17] MEDS: Morphine Sulfate 4mg/ml Inj (IV USE ONLY) IVP PRN ×3 (08:12→23:58)
[2019-01-17] MEDS: Lactulose 20gm/30ml UDC ORAL SCH (08:15)
[2019-01-17] MEDS: metFORMIN 500mg tab ORAL SCH ×2 (08:18→17:01)
[2019-01-17] MEDS: Zinc Sulfate 220mg cap ORAL SCH (08:19)
[2019-01-17] MEDS: Docusate 100mg cap ORAL SCH (08:19)
[2019-01-17] MEDS: Aspirin EC 81mg tab ORAL SCH (08:19)
[2019-01-17] MEDS: Ascorbic Acid 500mg tab ORAL SCH ×2 (08:19→17:01)
[2019-01-17] MEDS: Heparin 5000 units/ml inj SUBQ SCH ×2 (08:19→21:33)
[2019-01-17] MEDS: Metoprolol Succinate XL 25mg tab ORAL SCH (09:00)
--- NOTE | 2019-01-17 09:17 | General Progress Note ---
Assessment/Plan Assessment/Plan: (1) Paraplegia (2) H/o Thoracic and Lumbar fusion (3) Neuropathic pain Pt will be continued on Methadone, Percocet, Morphine, Neurontin and Baclofen D/w Dr. Horton and he concurred. Subjective Date patient seen: Jan 17, 2019 Time patient seen: 08:15 - am Allergies: Coded Allergies: CIPROFLOXACIN (Verified Allergy, Unknown, 06/14/18) HALOPERIDOL (Verified Allergy, Unknown, 06/14/18) POLYETHYLENE GLYCOL 3350 (Verified Allergy, Unknown, 01/16/19) per patient, makes constipation RISPERIDONE (Verified Allergy, Unknown, 06/14/18) SENNA (Verified Allergy, Unknown, 06/14/18) Subjective REVIEW OF SYSTEMS: Denies rash, fever, chills, sweating, dizziness, drowsiness, blurred vision, sore throat, or change in weight. No shortness of breath or chest pain. No nausea, vomiting, diarrhea. No dysuria. He is complaining of generalized body pain. SUBJECTIVE: Patient has been getting the Methadone as scheduled and 3 doses of Morphine in the last 24hrs using the Percocet as needed. Says pain is worse when missing a dose due to sleeping. Has no new complaints at this time. Objective Last 24 Hour Vital Signs Date Time Temp Pulse Resp B/P (MAP) Pulse Ox O2 Delivery O2 Flow Rate FiO2 01/17/19 09:00 69 100/57 01/17/19 08:42 98.0 01/17/19 08:00 98.3 69 20 100/57 (71) 100 01/17/19 05:26 98.0 65 20 101/59 (73) 100 01/17/19 04:00 98.6 78 20 101/59 (73) 100 01/17/19 00:00 98.2 80 20 92/51 (65) 100 01/16/19 21:32 98 Nasal Cannula 2.0 28 01/16/19 21:32 87 16 96 Nasal Cannula 2.0 28 79 16 98 01/16/19 21:00 Room Air 01/16/19 20:00 99.3 84 18 114/75 (88) 99 01/16/19 16:00 96.9 91 19 123/77 (92) 99 01/16/19 12:00 98.1 78 19 104/61 (75) 100 01/16/19 11:55 130/61 Intake and Output 01/16/19 01/17/19 19:00 07:00 Intake Total 600 ml 1200 ml Output Total 800 ml 3100 ml Balance -200 ml -1900 ml IV Total 600 ml Other 1200 ml Output Urine Total 800 ml 3100 ml Height (Feet): 5 Height (Inches): 2.00 Weight (Pounds): 187 Objective GENERAL: Alert, awake, and oriented. LUNGS: Decreased breath sounds bilaterally. HEART: S1 and S2 Regular. ABDOMEN: Tenderness to palpation. EXTREMITIES: No cyanosis. No clubbing. NEURO: Motor 0/5 in all muscles b/l Larry Quiroz Jan 17, 2019 09:17
[2019-01-17] MEDS: Fleet's Enema 133ml RECTAL PRN (10:31)
[2019-01-17] MEDS: LORazepam 1mg tab ORAL PRN ×2 (10:38→21:31)
--- NOTE | 2019-01-17 11:16 | Surgery Progress Note ---
Surgery Progress Note Subjective Additional Comments states he feels well wants to have a BM today and states he feels like he will no n/v/f/c otherwise stable and comfortable pain improving Objective Last 24 Hour Vital Signs Date Time Temp Pulse Resp B/P (MAP) Pulse Ox O2 Delivery O2 Flow Rate FiO2 01/17/19 09:08 99 Nasal Cannula 2.0 28 01/17/19 09:00 Room Air 01/17/19 09:00 69 100/57 01/17/19 08:42 98.0 01/17/19 08:00 98.3 69 20 100/57 (71) 100 01/17/19 05:26 98.0 65 20 101/59 (73) 100 01/17/19 04:00 98.6 78 20 101/59 (73) 100 01/17/19 00:00 98.2 80 20 92/51 (65) 100 01/16/19 21:32 98 Nasal Cannula 2.0 28 01/16/19 21:32 87 16 96 Nasal Cannula 2.0 28 79 16 98 01/16/19 21:00 Room Air 01/16/19 20:00 99.3 84 18 114/75 (88) 99 01/16/19 16:00 96.9 91 19 123/77 (92) 99 01/16/19 12:00 98.1 78 19 104/61 (75) 100 01/16/19 11:55 130/61 I&O Intake and Output 01/16/19 01/17/19 19:00 07:00 Intake Total 600 ml 1200 ml Output Total 800 ml 3100 ml Balance -200 ml -1900 ml IV Total 600 ml Other 1200 ml Output Urine Total 800 ml 3100 ml Dressing: saturated Wound: clean Drains: other Cardiovascular: RSR Respiratory: clear Abdomen: soft, non-tender, present bowel sounds Extremities: no cyanosis, other Plan Problems: (1) Abdominal pain (2) Pelvic pain Assessment & Plan: Patient presented complaining of worsening pelvic and abdominal discomfort. States he says suprapubic catheter for some time now and recently it was pulled out at a different facility by a nurse and felt discomfort and has not felt better since. Initial bleeding but currently no bleeding. Catheter to Morales drainage bag with clear urine. Pain believed to be potentially related to bladder spasms as he says he had them diagnosed in the past and feels that similar. On examination obese male with no acute findings catheter in place stable with some pericatheter inflammation but very minimal. No drainage no abscess. Catheter functional and stable. No acute surgical intervention recommended. Will monitor follow with recommendations. KUB Bowel gas pattern is nonspecific. No mass, ectopic calcifications, or abnormal gas collections are identified. 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 Sacroiliac joints are fused. Bones are diffusely osteopenic. Impression: No acute findings (3) Decubital ulcer Assessment & Plan: Patient presents with multiple decubitus ulcers. He has limited mobility in his upper and lower extremities and is fairly bedbound and wheelchair-bound. Uses most functionality through blowing breathing tube. He is identified to have a 1.5 cm x 1 cm x 3 mm stage III sacral decubitus ulcer forming. No drainage periwound intact no signs of acute active inflammation or or infectious process. Patient also identified to have a right issue ulcer 3 cm x 2 cm stage III decubitus ulcer formation with granulation tissue in the base periwound intact with some erythema no drainage no purulence no signs of active infection. Bilateral heels soft and leg and legs and feet with contractures. Treatment Plan: Wash sacral and right ischial wound daily with normal saline/soap and water. Apply Thera honey or hydrogel impregnated gauze followed by foam dressing. Change daily and as needed saturation turn every 2 hours offload pressure Foam dressings on heel for protection heel protective dressings followed by offloading heel pressures with pillow Monitor for dermatitis associated incontinence and ensure to clean as necessary. Air soft mattress okay for transitioning to wheelchair when necessary Nutritional supplementation DAILY ESTIMATED NEEDS: Needs based on Bed bound, paraplegia, wound 65kg adj 23-30 kcals/kg 3457-2183 total kcals 1.25-2 g protein/kg 81-130 g total protein 25-30 mL/kg 0938-9813 total fluid mLs NUTRITION DIAGNOSIS: 1) Increased protein needs r/t wound healing as evidenced by pt w/ full thickness wounds on sacrum and BL ischium. (CURRENT DIET: CCHO MED) PO DIET RECOMMENDATIONS: CCHO LOW W/ DOUBLE PROTEIN PORTIONS ADDITIONAL RECOMMENDATIONS: 1) Wound care: add JIM BID + VIT C 250mg BID + MVI x1 daily 2) Check A1C- 8.4 3) RE-calibrate bed scale for accurate CBW 4) Diet edu as able . Endy De La Rosa Jan 17, 2019 11:16
[2019-01-17 11:20] LABS: BASOPHILS % (AUTO) 1.3 % (0.0-2.0); HEMATOCRIT 35.8 % (42.0-52.0); HEMOGLOBIN 11.6 G/DL (14.2-18.0); LYMPHOCYTES % (AUTO) 15.6 % (20.0-45.0); MEAN CORPUSCULAR VOLUME 85 FL (80-99); MONOCYTES % (AUTO) 7.2 % (1.0-10.0); NEUTROPHILS % (AUTO) 71.9 % (45.0-75.0); PLATELET COUNT 219 K/UL (150-450); RED BLOOD COUNT 4.22 M/UL (4.70-6.10); RED CELL DISTRIBUTION WIDTH 16.8 % (11.6-14.8); WHITE BLOOD COUNT 7.9 K/UL (4.8-10.8)
[2019-01-17 11:40] LABS: ANION GAP 8 mmol/L (5-15); BLOOD UREA NITROGEN 18 mg/dL (7-18); CALCIUM 8.4 MG/DL (8.5-10.1); CARBON DIOXIDE 24 MMOL/L (21-32); CHLORIDE 101 MMOL/L (98-107); CREATININE 0.7 MG/DL (0.55-1.30); POTASSIUM 4.8 MMOL/L (3.5-5.1); SODIUM 133 MMOL/L (136-145)
[2019-01-17] MEDS: D5 1/2NS 1,000 ML IV SCH (12:03)
--- NOTE | 2019-01-17 13:16 | NUR ---
NURSE NOTES: pt asked to see Dr MANCUSO, is notified and he will come tomorrow to visit pt, pt is aware. will continue to monitor.
--- NOTE | 2019-01-17 13:17 | GI Progress Note ---
Assessment/Plan Problems: (1) Constipation ICD Codes: K59.00 - Constipation, unspecified SNOMED: 99935451 (2) Abdominal bloating ICD Codes: R14.0 - Abdominal distension (gaseous) SNOMED: 355474287 (3) Paraplegia ICD Codes: G82.20 - Paraplegia, unspecified SNOMED: 56027324 Status: stable, unchanged Status Narrative Discussed with Dr. Lowery. Assessment/Plan This is a 43-year-old male with constipation associated with narcotics OIC. KUB reviewed negative patient reported BM this morning anemia work up reviewed bowel regime colace, miralax lactulose daily and prn simethicone prn for abdominal bloating enema prn for severe constipation consider relistor sq if abdominal bloating does not decrease follow labs The patient was seen and examined at bedside and all new and available data was reviewed in the patients chart. I agree with the above findings, impression and plan. (Patient seen earlier today. Signature stamp does not reflect patient encounter time.). - Chris Lowery MD Subjective Subjective abdominal bloating had BM yesterday Objective Last 24 Hour Vital Signs Date Time Temp Pulse Resp B/P (MAP) Pulse Ox O2 Delivery O2 Flow Rate FiO2 01/17/19 12:00 98.2 80 18 122/78 (93) 100 01/17/19 09:08 99 Nasal Cannula 2.0 28 01/17/19 09:00 69 100/57 01/17/19 09:00 Nasal Cannula 2.0 01/17/19 08:42 98.0 01/17/19 08:00 98.3 69 20 100/57 (71) 100 01/17/19 05:26 98.0 65 20 101/59 (73) 100 01/17/19 04:00 98.6 78 20 101/59 (73) 100 01/17/19 00:00 98.2 80 20 92/51 (65) 100 01/16/19 21:32 98 Nasal Cannula 2.0 28 01/16/19 21:32 87 16 96 Nasal Cannula 2.0 28 79 16 98 01/16/19 21:00 Room Air 01/16/19 20:00 99.3 84 18 114/75 (88) 99 01/16/19 16:00 96.9 91 19 123/77 (92) 99 Intake and Output 01/16/19 01/17/19 19:00 07:00 Intake Total 600 ml 1200 ml Output Total 800 ml 3100 ml Balance -200 ml -1900 ml IV Total 600 ml Other 1200 ml Output Urine Total 800 ml 3100 ml Laboratory Tests Test 01/17/19 11:00 01/17/19 11:10 Stool Occult Blood Negative (NEGATIVE) White Blood Count 7.9 K/UL (4.8-10.8) Red Blood Count 4.22 M/UL (4.70-6.10) L Hemoglobin 11.6 G/DL (14.2-18.0) L Hematocrit 35.8 % (42.0-52.0) L Mean Corpuscular Volume 85 FL (80-99) Mean Corpuscular Hemoglobin 27.5 PG (27.0-31.0) Mean Corpuscular Hemoglobin Concent 32.3 G/DL (32.0-36.0) Red Cell Distribution Width 16.8 % (11.6-14.8) H Platelet Count 219 K/UL (150-450) Mean Platelet Volume 5.4 FL (6.5-10.1) L Neutrophils (%) (Auto) 71.9 % (45.0-75.0) Lymphocytes (%) (Auto) 15.6 % (20.0-45.0) L Monocytes (%) (Auto) 7.2 % (1.0-10.0) Eosinophils (%) (Auto) 4.0 % (0.0-3.0) H Basophils (%) (Auto) 1.3 % (0.0-2.0) Sodium Level 133 MMOL/L (136-145) L Potassium Level 4.8 MMOL/L (3.5-5.1) Chloride Level 101 MMOL/L (98-107) Carbon Dioxide Level 24 MMOL/L (21-32) Anion Gap 8 mmol/L (5-15) Blood Urea Nitrogen 18 mg/dL (7-18) Creatinine 0.7 MG/DL (0.55-1.30) Estimat Glomerular Filtration Rate > 60 mL/min (>60) Glucose Level 319 MG/DL (74-106) H Calcium Level 8.4 MG/DL (8.5-10.1) L Height (Feet): 5 Height (Inches): 2.00 Weight (Pounds): 187 General Appearance: WD/WN, no apparent distress, alert Cardiovascular: normal rate Respiratory/Chest: normal breath sounds, no respiratory distress Abdominal Exam: normal bowel sounds, non tender, soft Extremities: non-tender Prasanth Steiner NP Jan 17, 2019 13:17
[2019-01-17] MEDS ORDERED: Lactulose 20gm/30ml UDC ORAL PRN (13:30)
--- NOTE | 2019-01-17 13:37 | NUR ---
NURSE NOTES: Dr KNOX visit pt and he is aware about BS, he will F/U. will continue to monitor.
--- NOTE | 2019-01-17 14:05 | General Progress Note ---
Assessment/Plan Problem List: (1) Chronic pain ICD Codes: G89.29 - Other chronic pain SNOMED: 44385476 Qualifiers: Qualified Codes: G89.4 - Chronic pain syndrome (2) UTI due to extended-spectrum beta lactamase (ESBL) producing Escherichia coli ICD Codes: N39.0 - Urinary tract infection, site not specified; B96.29 - Other Escherichia coli [E. coli] as the cause of diseases classified elsewhere; Z16.12 - Extended spectrum beta lactamase (ESBL) resistance SNOMED: 262436238, 251796905 (3) Diabetes mellitus ICD Codes: E11.9 - Type 2 diabetes mellitus without complications SNOMED: 60521742 (4) Limited mobility in bed SNOMED: 091968111 (5) Sepsis ICD Codes: A41.9 - Sepsis, unspecified organism SNOMED: 62619869 (6) Paraplegia ICD Codes: G82.20 - Paraplegia, unspecified SNOMED: 59281867 Status: stable, progressing Assessment/Plan: pt diet abx dc if clear Subjective Constitutional: Reports: weakness Allergies: Coded Allergies: CIPROFLOXACIN (Verified Allergy, Unknown, 06/14/18) HALOPERIDOL (Verified Allergy, Unknown, 06/14/18) POLYETHYLENE GLYCOL 3350 (Verified Allergy, Unknown, 01/16/19) per patient, makes constipation RISPERIDONE (Verified Allergy, Unknown, 06/14/18) SENNA (Verified Allergy, Unknown, 06/14/18) All Systems: reviewed and negative except above Subjective o2nc sleepy calm wants to leave Objective Last 24 Hour Vital Signs Date Time Temp Pulse Resp B/P (MAP) Pulse Ox O2 Delivery O2 Flow Rate FiO2 01/17/19 12:00 98.2 80 18 122/78 (93) 100 01/17/19 09:08 99 Nasal Cannula 2.0 28 01/17/19 09:00 69 100/57 01/17/19 09:00 Nasal Cannula 2.0 01/17/19 08:42 98.0 01/17/19 08:00 98.3 69 20 100/57 (71) 100 01/17/19 05:26 98.0 65 20 101/59 (73) 100 01/17/19 04:00 98.6 78 20 101/59 (73) 100 01/17/19 00:00 98.2 80 20 92/51 (65) 100 01/16/19 21:32 98 Nasal Cannula 2.0 28 01/16/19 21:32 87 16 96 Nasal Cannula 2.0 28 79 16 98 01/16/19 21:00 Room Air 01/16/19 20:00 99.3 84 18 114/75 (88) 99 01/16/19 16:00 96.9 91 19 123/77 (92) 99 Intake and Output 01/16/19 01/17/19 19:00 07:00 Intake Total 600 ml 1260 ml Output Total 800 ml 3100 ml Balance -200 ml -1840 ml IV Total 600 ml 60 ml Other 1200 ml Output Urine Total 800 ml 3100 ml Laboratory Tests 01/17/19 11:00: Stool Occult Blood Negative 01/17/19 11:10: White Blood Count 7.9, Red Blood Count 4.22L, Hemoglobin 11.6L, Hematocrit 35.8L , Mean Corpuscular Volume 85, Mean Corpuscular Hemoglobin 27.5, Mean Corpuscular Hemoglobin Concent 32.3, Red Cell Distribution Width 16.8H, Platelet Count 219, Mean Platelet Volume 5.4L, Neutrophils (%) (Auto) 71.9, Lymphocytes (%) (Auto) 15.6L, Monocytes (%) (Auto) 7.2, Eosinophils (%) (Auto) 4.0H, Basophils (%) (Auto) 1.3, Sodium Level 133L, Potassium Level 4.8, Chloride Level 101, Carbon Dioxide Level 24, Anion Gap 8, Blood Urea Nitrogen 18 , Creatinine 0.7, Estimat Glomerular Filtration Rate > 60, Glucose Level 319H, Calcium Level 8.4L Height (Feet): 5 Height (Inches): 2.00 Weight (Pounds): 187 General Appearance: alert EENT: normal ENT inspection Neck: normal alignment Cardiovascular: normal peripheral pulses, normal rate, regular rhythm Respiratory/Chest: chest wall non-tender, lungs clear, normal breath sounds Abdomen: normal bowel sounds, non tender, soft Extremities: normal inspection Edema: no edema noted Arm (L), no edema noted Arm (R), no edema noted Leg (L), no edema noted Leg (R), no edema noted Pedal (L), no edema noted Pedal (R), no edema noted Generalized Neurologic: responsive, motor weakness Skin: normal pigmentation, warm/dry Srini Cox DO Jan 17, 2019 14:05
--- NOTE | 2019-01-17 14:18 | NUR ---
NURSE NOTES: called Dr REAL to clear pt to D/C but he stated he prefer to D/C him tomorrow.
--- NOTE | 2019-01-17 14:25 | NUR ---
*-* DISCHARGE PLANNING *-* PATIENT HAS BEEN REFERRED TO: [facility] P: [phone] F: [phone]
--- NOTE | 2019-01-17 14:56 | NUR ---
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 Dr BROOKS notified. will continue to monitor.
--- NOTE | 2019-01-17 15:15 | Pulmonology Progress Note ---
Assessment/Plan Problems: (1) UTI due to extended-spectrum beta lactamase (ESBL) producing Escherichia coli (2) Diabetes mellitus (3) Intractable back pain (4) Bladder spasm (5) Spina bifida (6) Paraplegia (7) Chronic pain Assessment/Plan doing better symptomatic treatment check electrolytes laxatives pain control f/u by psych all reviewed. ok to dc Subjective ROS Limited/Unobtainable: No Constitutional: Reports: no symptoms HEENT: Repors: no symptoms Respiratory: Reports: no symptoms Allergies: Coded Allergies: CIPROFLOXACIN (Verified Allergy, Unknown, 06/14/18) HALOPERIDOL (Verified Allergy, Unknown, 06/14/18) POLYETHYLENE GLYCOL 3350 (Verified Allergy, Unknown, 01/16/19) per patient, makes constipation RISPERIDONE (Verified Allergy, Unknown, 06/14/18) SENNA (Verified Allergy, Unknown, 06/14/18) Objective Last 24 Hour Vital Signs Date Time Temp Pulse Resp B/P (MAP) Pulse Ox O2 Delivery O2 Flow Rate FiO2 01/17/19 14:55 98.2 01/17/19 12:00 98.2 80 18 122/78 (93) 100 01/17/19 09:08 99 Nasal Cannula 2.0 28 01/17/19 09:00 69 100/57 01/17/19 09:00 Nasal Cannula 2.0 01/17/19 08:00 98.3 69 20 100/57 (71) 100 01/17/19 05:26 98.0 65 20 101/59 (73) 100 01/17/19 04:00 98.6 78 20 101/59 (73) 100 01/17/19 00:00 98.2 80 20 92/51 (65) 100 01/16/19 21:32 98 Nasal Cannula 2.0 28 01/16/19 21:32 87 16 96 Nasal Cannula 2.0 28 79 16 98 01/16/19 21:00 Room Air 01/16/19 20:00 99.3 84 18 114/75 (88) 99 01/16/19 16:00 96.9 91 19 123/77 (92) 99 Intake and Output 01/16/19 01/17/19 19:00 07:00 Intake Total 600 ml 1260 ml Output Total 800 ml 3100 ml Balance -200 ml -1840 ml IV Total 600 ml 60 ml Other 1200 ml Output Urine Total 800 ml 3100 ml General Appearance: WD/WN HEENT: normocephalic, atraumatic Respiratory/Chest: chest wall non-tender, lungs clear Cardiovascular: normal peripheral pulses, normal rate Abdomen: normal bowel sounds, non distended Genitourinary: normal external genitalia Extremities: no cyanosis Skin: no lesions 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 Microbiology Date/Time Source Procedure Growth Status 01/14/19 20:15 Blood Blood Culture - Preliminary NO GROWTH AFTER 48 HOURS Resulted 01/14/19 20:00 Blood Blood Culture - Preliminary NO GROWTH AFTER 48 HOURS Resulted Laboratory Tests 01/17/19 11:00: Stool Occult Blood Negative 01/17/19 11:10: White Blood Count 7.9, Red Blood Count 4.22L, Hemoglobin 11.6L, Hematocrit 35.8L , Mean Corpuscular Volume 85, Mean Corpuscular Hemoglobin 27.5, Mean Corpuscular Hemoglobin Concent 32.3, Red Cell Distribution Width 16.8H, Platelet Count 219, Mean Platelet Volume 5.4L, Neutrophils (%) (Auto) 71.9, Lymphocytes (%) (Auto) 15.6L, Monocytes (%) (Auto) 7.2, Eosinophils (%) (Auto) 4.0H, Basophils (%) (Auto) 1.3, Sodium Level 133L, Potassium Level 4.8, Chloride Level 101, Carbon Dioxide Level 24, Anion Gap 8, Blood Urea Nitrogen 18 , Creatinine 0.7, Estimat Glomerular Filtration Rate > 60, Glucose Level 319H, Calcium Level 8.4L Current Medications Medications (Trade) Dose Ordered Sig/Trevin Route PRN Reason Start Time Stop Time Status Last Admin Dose Admin Acetaminophen (Tylenol) 650 mg Q4H PRN ORAL Mild Pain/Temp > 100.5 01/13/19 08:00 02/12/19 07:59 Acetaminophen (Tylenol) 650 mg Q6H PRN ORAL Temp > 100 01/13/19 08:00 02/12/19 07:59 Albuterol/ Ipratropium (Albuterol/ Ipratropium) 3 ml Q6H PRN HHN Shortness of Breath 01/14/19 10:15 01/19/19 10:14 01/16/19 21:32 Ascorbic Acid (Vitamin C) 500 mg TWICE A DAY ORAL 01/13/19 09:00 02/12/19 08:59 01/17/19 08:19 Aspirin (Ecotrin) 81 mg DAILY ORAL 01/13/19 09:00 02/12/19 08:59 01/17/19 08:19 Atorvastatin Calcium (Lipitor) 40 mg BEDTIME ORAL 01/13/19 21:00 02/12/19 20:59 01/16/19 21:22 Baclofen (Lioresal) 10 mg THREE TIMES A DAY PRN ORAL muscle spasm 01/14/19 09:15 02/13/19 09:14 01/15/19 12:53 Clonidine HCl (Catapres TTS-1) 1 patch QWEEK TDERMAL 01/16/19 09:00 02/15/19 08:59 01/16/19 11:55 Dextrose (Dextrose 50%) 25 ml Q30M PRN IV Hypoglycemia 01/13/19 08:30 02/12/19 08:29 Dextrose (Dextrose 50%) 50 ml Q30M PRN IV Hypoglycemia 01/13/19 08:30 02/12/19 08:29 Dextrose/Sodium Chloride 1,000 ml @ 60 mls/hr [id number] IV 01/13/19 07:45 02/12/19 07:44 01/17/19 12:03 Diphenhydramine HCl (Benadryl) 25 mg HSPRN PRN ORAL for insomnia , itching 01/13/19 08:00 02/12/19 07:59 Docusate Sodium (Colace) 100 mg DAILY ORAL 01/13/19 09:00 02/12/19 08:59 01/17/19 08:19 Ertapenem 1 gm/ Sodium Chloride 55 ml @ 110 mls/hr Q24H IVPB 01/14/19 04:00 01/19/19 03:59 01/17/19 04:10 Famotidine (Pepcid) 20 mg BID ORAL 01/13/19 09:00 02/12/19 08:59 01/17/19 08:18 Fluphenazine HCl (Prolixin) 5 mg TWICE A DAY ORAL 01/13/19 10:15 02/12/19 10:14 01/17/19 08:20 Gabapentin (Neurontin) 200 mg TID ORAL 01/14/19 13:00 02/12/19 08:59 01/17/19 12:07 Heparin Sodium (Porcine) (Heparin 5000 units/ml) 5,000 units EVERY 12 HOURS SUBQ 01/13/19 21:00 02/12/19 20:59 01/17/19 08:19 Ibuprofen (Motrin) 600 mg Q6H PRN ORAL For Pain 01/13/19 08:00 02/12/19 07:59 01/13/19 14:36 Insulin Aspart (NovoLOG) BEFORE MEALS AND HS SUBQ 01/13/19 11:30 02/12/19 11:29 01/17/19 12:04 Insulin Detemir (Levemir) 20 units BEDTIME SUBQ 01/17/19 21:00 02/12/19 20:59 Lactulose (Cephulac) 30 gm DAILY ORAL 01/18/19 11:00 02/14/19 12:59 Lactulose (Cephulac) 30 gm DAILYPRN PRN ORAL Constipation 01/17/19 13:30 02/16/19 13:29 Lorazepam (Ativan) 1 mg Q6H PRN ORAL For Anxiety 01/13/19 08:30 01/20/19 08:29 01/17/19 10:38 Magnesium Hydroxide (Mom) 30 ml DAILYPRN PRN ORAL Constipation 01/13/19 08:30 02/12/19 08:29 Metformin HCl (Glucophage) 500 mg TWICE A DAY ORAL 01/13/19 09:00 02/12/19 08:59 01/17/19 08:18 Methadone HCl (Methadone HCl) 5 mg TWICE A DAY ORAL 01/13/19 18:00 01/20/19 08:43 01/17/19 09:37 Metoprolol Succinate (Toprol XL) 25 mg DAILY ORAL 01/13/19 09:00 02/12/19 08:59 01/16/19 08:11 Morphine Sulfate (Morphine Sulfate) 4 mg Q6H PRN IVP severe pain 01/14/19 09:15 01/21/19 09:14 01/17/19 14:25 Nateglinide (Starlix) 120 mg TIAC ORAL 01/17/19 16:30 02/16/19 16:29 Ondansetron HCl (Zofran) 4 mg Q4H PRN IVP Nausea & Vomiting 01/13/19 08:00 02/12/19 07:59 01/16/19 18:21 Oxycodone/ Acetaminophen (Percocet 10/325) 1 tab Q4H PRN ORAL moderate pain 01/14/19 09:15 01/21/19 09:14 01/15/19 10:48 Polyethylene Glycol (Miralax) 17 gm BEDTIME ORAL 01/15/19 21:00 02/14/19 20:59 Simethicone (Mylicon) 80 mg THREE TIMES A DAY PRN ORAL Abdominal cramps 01/13/19 08:00 02/12/19 07:59 Sodium Phosphate (Fleet's Sodium Phosl Enema) 133 ml DAILYPRN PRN RECTAL Constipation 01/15/19 16:00 02/14/19 15:59 01/17/19 10:31 Trazodone HCl (Desyrel) 50 mg QHS PRN ORAL Insomnia 01/13/19 08:00 02/12/19 07:59 01/16/19 02:04 Zinc Sulfate (Zinc Sulfate) 220 mg DAILY ORAL 01/13/19 09:00 02/12/19 08:59 01/17/19 08:19 Joao Siu MD Jan 17, 2019 15:15
[2019-01-17] MEDS: Albuterol/Ipratropium 3ml neb HHN PRN (15:49)
--- NOTE | 2019-01-17 16:15 | Progress Note ---
DATE: 01/17/2019 SUBJECTIVE: This is a 43-year-old patient with urinary tract infection, confusion, disorganized thought process, decline in cognition below his baseline, continues to have some mood lability, confusion, sepsis, chronic pain, that is why his attending has requested daily psychiatric consultation. MENTAL STATUS EXAMINATION: The patient is a 43-year-old male. Appearance is disheveled. Attitude, irritable and agitated. Affect, guarded and restricted. Intellect poor. Mood, depressed and anxious. Motor activity, psychomotor agitation. Attention span is poor. Orientation x2. Speech is low volume, slurred. Thought process, disorganized and illogical. Insight and judgment is poor. DIAGNOSIS: Paranoid schizophrenia with acute exacerbation. PLAN: Plan for this patient is to treat him with medication regimen consisting of Ativan 1 mg every 6 hours p.r.n. anxiety and agitation, Neurontin 300 mg three times a day, Prolixin 5 mg twice a day. A 20 minutes of supportive psychotherapy and 20 minutes of cognitive behavioral therapy to help him identify his automatic negative thoughts and help him convert negative thoughts to more positive thoughts to reduce depression, anxiety, and mood lability. Chart reviewed. Discussed with staff. Seen and assessed at bedside. Rosalino Caraballo M.D. DR: Joi JOB#: [id number] CC:
--- NOTE | 2019-01-17 17:56 | NUR ---
NURSE NOTES: Dr RESENDIZ visited pt and changed suprapubic cath and working well. will continue to monitor.
--- NOTE | 2019-01-17 18:30 | Infectious Diseases Prog Note ---
Assessment/Plan Assessment/Plan 43yo gentleman with PMH below presents with worsened catheter site pain with spasms. He states that these symptoms are consistent with his previous UTI. Denies fever, chills, nausea, vomiting. Last catheter changed early December. Afebrile Mild leukocytosis, SP Likely UTI pt reports monthly episodes UA WBC TNTC, nitrite positive UCx: ESBL Klebsiella, GNR DM paraplegia chronic pain labile affect Plan: continue ertapenem #5/7. recommend nitrofurantoin 100mg QHS PPX with probiotics after completion of ertapenem. discussed plan with patient. pt understands risk of resistance development and C diff. f/u Ucx bcx x2 aspiration precaution appreciate urology consult assistance Thank you for this consult. [facility] will continue to follow the patient with you. Subjective Allergies: Coded Allergies: CIPROFLOXACIN (Verified Allergy, Unknown, 06/14/18) HALOPERIDOL (Verified Allergy, Unknown, 06/14/18) POLYETHYLENE GLYCOL 3350 (Verified Allergy, Unknown, 01/16/19) per patient, makes constipation RISPERIDONE (Verified Allergy, Unknown, 06/14/18) SENNA (Verified Allergy, Unknown, 06/14/18) Subjective Afebrile. 2L NC. Agitated Objective Vital Signs Last 24 Hour Vital Signs Date Time Temp Pulse Resp B/P (MAP) Pulse Ox O2 Delivery O2 Flow Rate FiO2 01/17/19 17:58 Nasal Cannula 2.0 01/17/19 15:52 98.0 80 18 128/77 (94) 99 01/17/19 15:52 80 18 100 Nasal Cannula 2.0 28 78 18 100 01/17/19 14:55 98.2 01/17/19 12:00 98.2 80 18 122/78 (93) 100 01/17/19 09:08 99 Nasal Cannula 2.0 28 01/17/19 09:00 69 100/57 01/17/19 09:00 Nasal Cannula 2.0 01/17/19 08:00 98.3 69 20 100/57 (71) 100 01/17/19 05:26 98.0 65 20 101/59 (73) 100 01/17/19 04:00 98.6 78 20 101/59 (73) 100 01/17/19 00:00 98.2 80 20 92/51 (65) 100 01/16/19 21:32 98 Nasal Cannula 2.0 28 01/16/19 21:32 87 16 96 Nasal Cannula 2.0 28 79 16 98 01/16/19 21:00 Room Air 01/16/19 20:00 99.3 84 18 114/75 (88) 99 Height (Feet): 5 Height (Inches): 2.00 Weight (Pounds): 187 Objective Gen: NAD. periodically shaking heads involuntarily HEENT: anicteric sclera CV: RRR Resp: Unlabored. no wheezes or crackles. Abd: soft. no TTP. suprapubic catheter site unable to be visualized due to pannus and pt reporting pain Ext: no LE edema Neuro: interactive Microbiology Date/Time Source Procedure Growth Status 01/14/19 20:15 Blood Blood Culture - Preliminary NO GROWTH AFTER 48 HOURS Resulted 01/14/19 20:00 Blood Blood Culture - Preliminary NO GROWTH AFTER 48 HOURS Resulted Laboratory Tests Test 01/17/19 11:00 01/17/19 11:10 Stool Occult Blood Negative (NEGATIVE) White Blood Count 7.9 K/UL (4.8-10.8) Red Blood Count 4.22 M/UL (4.70-6.10) L Hemoglobin 11.6 G/DL (14.2-18.0) L Hematocrit 35.8 % (42.0-52.0) L Mean Corpuscular Volume 85 FL (80-99) Mean Corpuscular Hemoglobin 27.5 PG (27.0-31.0) Mean Corpuscular Hemoglobin Concent 32.3 G/DL (32.0-36.0) Red Cell Distribution Width 16.8 % (11.6-14.8) H Platelet Count 219 K/UL (150-450) Mean Platelet Volume 5.4 FL (6.5-10.1) L Neutrophils (%) (Auto) 71.9 % (45.0-75.0) Lymphocytes (%) (Auto) 15.6 % (20.0-45.0) L Monocytes (%) (Auto) 7.2 % (1.0-10.0) Eosinophils (%) (Auto) 4.0 % (0.0-3.0) H Basophils (%) (Auto) 1.3 % (0.0-2.0) Sodium Level 133 MMOL/L (136-145) L Potassium Level 4.8 MMOL/L (3.5-5.1) Chloride Level 101 MMOL/L (98-107) Carbon Dioxide Level 24 MMOL/L (21-32) Anion Gap 8 mmol/L (5-15) Blood Urea Nitrogen 18 mg/dL (7-18) Creatinine 0.7 MG/DL (0.55-1.30) Estimat Glomerular Filtration Rate > 60 mL/min (>60) Glucose Level 319 MG/DL (74-106) H Calcium Level 8.4 MG/DL (8.5-10.1) L Current Medications Medications (Trade) Dose Ordered Sig/Trevin Route PRN Reason Start Time Stop Time Status Last Admin Dose Admin Acetaminophen (Tylenol) 650 mg Q4H PRN ORAL Mild Pain/Temp > 100.5 01/13/19 08:00 02/12/19 07:59 Acetaminophen (Tylenol) 650 mg Q6H PRN ORAL Temp > 100 01/13/19 08:00 02/12/19 07:59 Albuterol/ Ipratropium (Albuterol/ Ipratropium) 3 ml Q6H PRN HHN Shortness of Breath 01/14/19 10:15 01/19/19 10:14 01/17/19 15:49 Ascorbic Acid (Vitamin C) 500 mg TWICE A DAY ORAL 01/13/19 09:00 02/12/19 08:59 01/17/19 17:01 Aspirin (Ecotrin) 81 mg DAILY ORAL 01/13/19 09:00 02/12/19 08:59 01/17/19 08:19 Atorvastatin Calcium (Lipitor) 40 mg BEDTIME ORAL 01/13/19 21:00 02/12/19 20:59 01/16/19 21:22 Baclofen (Lioresal) 10 mg THREE TIMES A DAY PRN ORAL muscle spasm 01/14/19 09:15 02/13/19 09:14 01/15/19 12:53 Clonidine HCl (Catapres TTS-1) 1 patch QWEEK TDERMAL 01/16/19 09:00 02/15/19 08:59 01/16/19 11:55 Dextrose (Dextrose 50%) 25 ml Q30M PRN IV Hypoglycemia 01/13/19 08:30 02/12/19 08:29 Dextrose (Dextrose 50%) 50 ml Q30M PRN IV Hypoglycemia 01/13/19 08:30 02/12/19 08:29 Dextrose/Sodium Chloride 1,000 ml @ 60 mls/hr [id number] IV 01/13/19 07:45 02/12/19 07:44 01/17/19 12:03 Diphenhydramine HCl (Benadryl) 25 mg HSPRN PRN ORAL for insomnia , itching 01/13/19 08:00 02/12/19 07:59 Docusate Sodium (Colace) 100 mg DAILY ORAL 01/13/19 09:00 02/12/19 08:59 01/17/19 08:19 Ertapenem 1 gm/ Sodium Chloride 55 ml @ 110 mls/hr Q24H IVPB 01/14/19 04:00 01/19/19 03:59 01/17/19 04:10 Famotidine (Pepcid) 20 mg BID ORAL 01/13/19 09:00 02/12/19 08:59 01/17/19 17:01 Fluphenazine HCl (Prolixin) 5 mg TWICE A DAY ORAL 01/13/19 10:15 02/12/19 10:14 01/17/19 17:00 Gabapentin (Neurontin) 200 mg TID ORAL 01/14/19 13:00 02/12/19 08:59 01/17/19 17:01 Heparin Sodium (Porcine) (Heparin 5000 units/ml) 5,000 units EVERY 12 HOURS SUBQ 01/13/19 21:00 02/12/19 20:59 01/17/19 08:19 Ibuprofen (Motrin) 600 mg Q6H PRN ORAL For Pain 01/13/19 08:00 02/12/19 07:59 01/13/19 14:36 Insulin Aspart (NovoLOG) BEFORE MEALS AND HS SUBQ 01/13/19 11:30 02/12/19 11:29 01/17/19 17:00 Insulin Detemir (Levemir) 20 units BEDTIME SUBQ 01/17/19 21:00 02/12/19 20:59 Lactulose (Cephulac) 30 gm DAILY ORAL 01/18/19 11:00 02/14/19 12:59 Lactulose (Cephulac) 30 gm DAILYPRN PRN ORAL Constipation 01/17/19 13:30 02/16/19 13:29 Lorazepam (Ativan) 1 mg Q6H PRN ORAL For Anxiety 01/13/19 08:30 01/20/19 08:29 01/17/19 10:38 Magnesium Hydroxide (Mom) 30 ml DAILYPRN PRN ORAL Constipation 01/13/19 08:30 02/12/19 08:29 Metformin HCl (Glucophage) 500 mg TWICE A DAY ORAL 01/13/19 09:00 02/12/19 08:59 01/17/19 17:01 Methadone HCl (Methadone HCl) 5 mg TWICE A DAY ORAL 01/13/19 18:00 01/20/19 08:43 01/17/19 17:01 Metoprolol Succinate (Toprol XL) 25 mg DAILY ORAL 01/13/19 09:00 02/12/19 08:59 01/16/19 08:11 Morphine Sulfate (Morphine Sulfate) 4 mg Q6H PRN IVP severe pain 01/14/19 09:15 01/21/19 09:14 01/17/19 14:25 Nateglinide (Starlix) 120 mg TIAC ORAL 01/17/19 16:30 02/16/19 16:29 01/17/19 17:00 Ondansetron HCl (Zofran) 4 mg Q4H PRN IVP Nausea & Vomiting 01/13/19 08:00 02/12/19 07:59 01/16/19 18:21 Oxycodone/ Acetaminophen (Percocet 10/325) 1 tab Q4H PRN ORAL moderate pain 01/14/19 09:15 01/21/19 09:14 01/17/19 18:05 Polyethylene Glycol (Miralax) 17 gm BEDTIME ORAL 01/15/19 21:00 02/14/19 20:59 Simethicone (Mylicon) 80 mg THREE TIMES A DAY PRN ORAL Abdominal cramps 01/13/19 08:00 02/12/19 07:59 Sodium Phosphate (Fleet's Sodium Phosl Enema) 133 ml DAILYPRN PRN RECTAL Constipation 01/15/19 16:00 02/14/19 15:59 01/17/19 10:31 Trazodone HCl (Desyrel) 50 mg QHS PRN ORAL Insomnia 01/13/19 08:00 02/12/19 07:59 01/16/19 02:04 Zinc Sulfate (Zinc Sulfate) 220 mg DAILY ORAL 01/13/19 09:00 02/12/19 08:59 01/17/19 08:19 Dianna Dhaliwal MD Jan 17, 2019 18:29
--- NOTE | 2019-01-17 19:33 | NUR ---
HAND-OFF: Report given to MARCELO CLAY.
--- NOTE | 2019-01-17 19:47 | NUR ---
NURSE NOTES: RECEIVED PT FROM [facility]. PT IS AWAKE, AAOX4, ON NC 2L, NO RESPIRATORY DISTRESS NOTED. PT C/O 8/10 PAIN IN LOWER ABDOMEN NEAR SUPRAPUBIC SITE. WILL FOLLOW UP WITH PRN MORPHINE. SUPRAPUBIC IS INTACT AND DRAINING WELL. DRESSINGS ON SACRAL, HEELS AND LEFT ISCHIAL ARE INTACT AND DRY. IV ON LIGHT AC 20G IS INTACT AND PATENT, RUNNING D51/2 NS AT 60ML/HR. BED IS LOCKED AND LOW, BED ALARMS ACTIVE, SIDE RAILS UP X2 AND CALL LIGHT IS WITHIN REACH. WILL CONTINUE TO MONITOR.
[2019-01-17] MEDS ORDERED: Levemir Flexpen SUBQ SCH (21:00)
[2019-01-17] MEDS: Miralax 17gm pkt ORAL SCH (21:00)
--- NOTE | 2019-01-17 21:15 | Consultation ---
DATE OF CONSULTATION: 01/17/2019 CONSULTING PHYSICIAN: Lucien Mckoy M.D. REFERRING PHYSICIAN: Srini Cox D.O. REASON FOR CONSULTATION: Chronic urinary tract infections, suprapubic tube. HISTORY OF PRESENT ILLNESS: The patient is a pleasant gentleman that has indwelling suprapubic catheter. His catheter gets plugged periodically and needed to be either flashed or replaced. Currently, the catheter was replaced more than 28 days and he is requesting to change his suprapubic catheter. MEDICATIONS: Have been done and reviewed. PAST MEDICAL HISTORY: Have been done and reviewed. REVIEW OF SYMPTOMS: Have been done and reviewed. PHYSICAL EXAMINATION: He is a disabled gentleman with atrophic lower extremities and suprapubic catheter. His penile and scrotal exam is negative. ASSESSMENT AND PLAN: The old suprapubic catheter was removed, a 26-Swedish 3-way Morales catheter and a new catheter, 26 2-way was placed and bladder was irrigated. Catheter was in good position, secured. [facility]. Lucien Mckoy M.D. DR: ED/ANNMARIE JOB#: [id number] CC:
[2019-01-17] MEDS: Atorvastatin 80mg tab ORAL SCH (21:31)
[2019-01-17] MEDS: TraZODone 50mg tab ORAL PRN (22:46)
[2019-01-18] VITALS: BP_SYST 103; BP_SYST 137; BP_DIAS 69; BP_DIAS 80
[2019-01-18 04:00] VITALS: BP 137/80
[2019-01-18] MEDS: Ertapenem 1 GM in NS 55 ML IVPB SCH (04:39)
[2019-01-18] MEDS: D5 1/2NS 1,000 ML IV SCH ×2 (04:39→21:05)
[2019-01-18] MEDS: NovoLOG Insulin Flexpen SUBQ SCH ×6 (06:48→21:00)
--- NOTE | 2019-01-18 07:10 | NUR ---
NURSE NOTES: HANDOFF RECEIVED FROM RAYMOND,RN. PATIENT RECEIVED SLEEPING IN BED. PATIENT IV SITE IS CLEAN, DRY AND INTACT RUNNING PRESCRIBED FLUIDS AT 60ML/HOUR. NO PHYSICAL SIGNS OF DISTRESS NOTED. PATIENT IS ON NASAL CANNULA AT 2 LITERS. ORAL CALL LIGHT IS ATTACHED TO THE BED IN FRONT OF PATIENTS FACE FOR EASY ACCESS. WILL CONTINUE TO MONITOR PATIENT.
[2019-01-18 08:00] VITALS: BP 128/68
[2019-01-18 08:41] LABS: EOSINOPHILS % (AUTO) 4.1 % (0.0-3.0); HEMATOCRIT 32.6 % (42.0-52.0); HEMOGLOBIN 11.2 G/DL (14.2-18.0); MEAN CORPUSCULAR VOLUME 83 FL (80-99); MONOCYTES % (AUTO) 7.6 % (1.0-10.0); NEUTROPHILS % (AUTO) 66.2 % (45.0-75.0); PLATELET COUNT 188 K/UL (150-450); RED BLOOD COUNT 3.94 M/UL (4.70-6.10); RED CELL DISTRIBUTION WIDTH 15.2 % (11.6-14.8); WHITE BLOOD COUNT 8.3 K/UL (4.8-10.8)
[2019-01-18] MEDS: Morphine Sulfate 4mg/ml Inj (IV USE ONLY) IVP PRN ×3 (08:45→21:12)
[2019-01-18] MEDS: Ascorbic Acid 500mg tab ORAL SCH ×2 (08:45→17:22)
[2019-01-18] MEDS: Metoprolol Succinate XL 25mg tab ORAL SCH (08:46)
[2019-01-18] MEDS: Aspirin EC 81mg tab ORAL SCH (08:46)
[2019-01-18] MEDS: Zinc Sulfate 220mg cap ORAL SCH (08:47)
[2019-01-18] MEDS: metFORMIN 500mg tab ORAL SCH ×2 (08:47→17:21)
[2019-01-18] MEDS: Docusate 100mg cap ORAL SCH (08:47)
[2019-01-18 08:50] LABS: ANION GAP 11 mmol/L (5-15); BLOOD UREA NITROGEN 24 mg/dL (7-18); CALCIUM 8.6 MG/DL (8.5-10.1); CARBON DIOXIDE 23 MMOL/L (21-32); CHLORIDE 103 MMOL/L (98-107); CREATININE 0.5 MG/DL (0.55-1.30); POTASSIUM 4.4 MMOL/L (3.5-5.1); SODIUM 137 MMOL/L (136-145)
--- NOTE | 2019-01-18 08:50 | General Progress Note ---
Subjective Allergies: Coded Allergies: CIPROFLOXACIN (Verified Allergy, Unknown, 06/14/18) HALOPERIDOL (Verified Allergy, Unknown, 06/14/18) POLYETHYLENE GLYCOL 3350 (Verified Allergy, Unknown, 01/16/19) per patient, makes constipation RISPERIDONE (Verified Allergy, Unknown, 06/14/18) SENNA (Verified Allergy, Unknown, 06/14/18) Larry Mi Jan 18, 2019 08:50
[2019-01-18] MEDS: Heparin 5000 units/ml inj SUBQ SCH ×2 (08:53→20:55)
--- NOTE | 2019-01-18 09:08 | General Progress Note ---
Assessment/Plan Assessment/Plan: (1) Paraplegia (2) H/o Thoracic and Lumbar fusion (3) Neuropathic pain Pt will be continued on Methadone, Percocet, Morphine, Neurontin and Baclofen An RX for Methadone and Percocet was written for SNF in anticipation for discharge D/w Dr. Horton and he concurred. Subjective Date patient seen: Jan 18, 2019 Time patient seen: 08:15 - am Allergies: Coded Allergies: CIPROFLOXACIN (Verified Allergy, Unknown, 06/14/18) HALOPERIDOL (Verified Allergy, Unknown, 06/14/18) POLYETHYLENE GLYCOL 3350 (Verified Allergy, Unknown, 01/16/19) per patient, makes constipation RISPERIDONE (Verified Allergy, Unknown, 06/14/18) SENNA (Verified Allergy, Unknown, 06/14/18) Subjective REVIEW OF SYSTEMS: Denies rash, fever, chills, sweating, dizziness, drowsiness, blurred vision, sore throat, or change in weight. No shortness of breath or chest pain. No nausea, vomiting, diarrhea. No dysuria. He is complaining of generalized body pain. SUBJECTIVE: Patient is showing no signs of pain or distress. He has moderate pain which has been tolerated on the Methadone and Morphine. Using the Percocet as needed. Looking forward to being transferred to SNF. Objective Last 24 Hour Vital Signs Date Time Temp Pulse Resp B/P (MAP) Pulse Ox O2 Delivery O2 Flow Rate FiO2 01/18/19 08:46 69 128/68 01/18/19 08:04 99 Nasal Cannula 2.0 28 01/18/19 08:00 96.8 69 16 128/68 (88) 98 01/18/19 04:00 98.2 89 20 137/80 (99) 100 01/18/19 00:00 98.6 71 20 103/69 (80) 99 01/17/19 21:06 99 Nasal Cannula 2.0 28 01/17/19 21:00 Nasal Cannula 2.0 01/17/19 20:00 97.9 79 17 125/70 (88) 100 01/17/19 18:35 98.0 01/17/19 17:58 Nasal Cannula 2.0 01/17/19 15:52 98.0 80 18 128/77 (94) 99 01/17/19 15:52 80 18 100 Nasal Cannula 2.0 28 78 18 100 01/17/19 14:55 98.2 01/17/19 12:00 98.2 80 18 122/78 (93) 100 01/17/19 09:08 99 Nasal Cannula 2.0 28 Intake and Output 01/17/19 01/18/19 18:59 06:59 Intake Total 2040 ml 840 ml Output Total 2000 ml 2000 ml Balance 40 ml -1160 ml Intake Oral 1320 ml 360 ml IV Total 720 ml 180 ml Other 300 ml Output Urine Total 2000 ml 2000 ml # Voids 3 # Bowel Movements 2 1 Laboratory Tests 01/17/19 11:00: Stool Occult Blood Negative 01/17/19 11:10: White Blood Count 7.9, Red Blood Count 4.22L, Hemoglobin 11.6L, Hematocrit 35.8L , Mean Corpuscular Volume 85, Mean Corpuscular Hemoglobin 27.5, Mean Corpuscular Hemoglobin Concent 32.3, Red Cell Distribution Width 16.8H, Platelet Count 219, Mean Platelet Volume 5.4L, Neutrophils (%) (Auto) 71.9, Lymphocytes (%) (Auto) 15.6L, Monocytes (%) (Auto) 7.2, Eosinophils (%) (Auto) 4.0H, Basophils (%) (Auto) 1.3, Sodium Level 133L, Potassium Level 4.8, Chloride Level 101, Carbon Dioxide Level 24, Anion Gap 8, Blood Urea Nitrogen 18 , Creatinine 0.7, Estimat Glomerular Filtration Rate > 60, Glucose Level 319H, Calcium Level 8.4L 01/18/19 07:45: White Blood Count 8.3, Red Blood Count 3.94L, Hemoglobin 11.2L, Hematocrit 32.6L , Mean Corpuscular Volume 83, Mean Corpuscular Hemoglobin 28.4, Mean Corpuscular Hemoglobin Concent 34.2, Red Cell Distribution Width 15.2H, Platelet Count 188, Mean Platelet Volume 5.3L, Neutrophils (%) (Auto) 66.2, Lymphocytes (%) (Auto) 21.0, Monocytes (%) (Auto) 7.6, Eosinophils (%) (Auto) 4.1H, Basophils (%) (Auto) 1.0, Sodium Level 137, Potassium Level 4.4, Chloride Level 103, Carbon Dioxide Level 23, Anion Gap 11, Blood Urea Nitrogen 24H, Creatinine 0.5L, Estimat Glomerular Filtration Rate > 60, Glucose Level 274H, Calcium Level 8.6 Height (Feet): 5 Height (Inches): 2.00 Weight (Pounds): 187 Objective GENERAL: Alert, awake, and oriented. LUNGS: Decreased breath sounds bilaterally. HEART: S1 and S2 Regular. ABDOMEN: Tenderness to palpation. EXTREMITIES: No cyanosis. No clubbing. NEURO: Motor 0/5 in all muscles b/l Larry Quiroz Jan 18, 2019 09:08
--- NOTE | 2019-01-18 09:17 | General Progress Note ---
Assessment/Plan Problem List: (1) Chronic pain ICD Codes: G89.29 - Other chronic pain SNOMED: 72285057 Qualifiers: Qualified Codes: G89.4 - Chronic pain syndrome (2) UTI due to extended-spectrum beta lactamase (ESBL) producing Escherichia coli ICD Codes: N39.0 - Urinary tract infection, site not specified; B96.29 - Other Escherichia coli [E. coli] as the cause of diseases classified elsewhere; Z16.12 - Extended spectrum beta lactamase (ESBL) resistance SNOMED: 987114345, 052736182 (3) Diabetes mellitus ICD Codes: E11.9 - Type 2 diabetes mellitus without complications SNOMED: 82243206 (4) Limited mobility in bed SNOMED: 169742158 (5) Sepsis ICD Codes: A41.9 - Sepsis, unspecified organism SNOMED: 74780355 (6) Paraplegia ICD Codes: G82.20 - Paraplegia, unspecified SNOMED: 20327429 Status: stable, progressing Assessment/Plan: pt diet abx cbc bmp am dc if clear Subjective Constitutional: Reports: weakness Allergies: Coded Allergies: CIPROFLOXACIN (Verified Allergy, Unknown, 06/14/18) HALOPERIDOL (Verified Allergy, Unknown, 06/14/18) POLYETHYLENE GLYCOL 3350 (Verified Allergy, Unknown, 01/16/19) per patient, makes constipation RISPERIDONE (Verified Allergy, Unknown, 06/14/18) SENNA (Verified Allergy, Unknown, 06/14/18) All Systems: reviewed and negative except above Subjective o2nc sleepy calm wants to leave Objective Last 24 Hour Vital Signs Date Time Temp Pulse Resp B/P (MAP) Pulse Ox O2 Delivery O2 Flow Rate FiO2 01/18/19 08:46 69 128/68 01/18/19 08:04 99 Nasal Cannula 2.0 28 01/18/19 08:00 96.8 69 16 128/68 (88) 98 01/18/19 04:00 98.2 89 20 137/80 (99) 100 01/18/19 00:00 98.6 71 20 103/69 (80) 99 01/17/19 21:06 99 Nasal Cannula 2.0 28 01/17/19 21:00 Nasal Cannula 2.0 01/17/19 20:00 97.9 79 17 125/70 (88) 100 01/17/19 18:35 98.0 01/17/19 17:58 Nasal Cannula 2.0 01/17/19 15:52 98.0 80 18 128/77 (94) 99 01/17/19 15:52 80 18 100 Nasal Cannula 2.0 28 78 18 100 01/17/19 14:55 98.2 01/17/19 12:00 98.2 80 18 122/78 (93) 100 Intake and Output 01/17/19 01/18/19 18:59 06:59 Intake Total 2040 ml 840 ml Output Total 2000 ml 2000 ml Balance 40 ml -1160 ml Intake Oral 1320 ml 360 ml IV Total 720 ml 180 ml Other 300 ml Output Urine Total 2000 ml 2000 ml # Voids 3 # Bowel Movements 2 1 Laboratory Tests 01/17/19 11:00: Stool Occult Blood Negative 01/17/19 11:10: White Blood Count 7.9, Red Blood Count 4.22L, Hemoglobin 11.6L, Hematocrit 35.8L , Mean Corpuscular Volume 85, Mean Corpuscular Hemoglobin 27.5, Mean Corpuscular Hemoglobin Concent 32.3, Red Cell Distribution Width 16.8H, Platelet Count 219, Mean Platelet Volume 5.4L, Neutrophils (%) (Auto) 71.9, Lymphocytes (%) (Auto) 15.6L, Monocytes (%) (Auto) 7.2, Eosinophils (%) (Auto) 4.0H, Basophils (%) (Auto) 1.3, Sodium Level 133L, Potassium Level 4.8, Chloride Level 101, Carbon Dioxide Level 24, Anion Gap 8, Blood Urea Nitrogen 18 , Creatinine 0.7, Estimat Glomerular Filtration Rate > 60, Glucose Level 319H, Calcium Level 8.4L 01/18/19 07:45: White Blood Count 8.3, Red Blood Count 3.94L, Hemoglobin 11.2L, Hematocrit 32.6L , Mean Corpuscular Volume 83, Mean Corpuscular Hemoglobin 28.4, Mean Corpuscular Hemoglobin Concent 34.2, Red Cell Distribution Width 15.2H, Platelet Count 188, Mean Platelet Volume 5.3L, Neutrophils (%) (Auto) 66.2, Lymphocytes (%) (Auto) 21.0, Monocytes (%) (Auto) 7.6, Eosinophils (%) (Auto) 4.1H, Basophils (%) (Auto) 1.0, Sodium Level 137, Potassium Level 4.4, Chloride Level 103, Carbon Dioxide Level 23, Anion Gap 11, Blood Urea Nitrogen 24H, Creatinine 0.5L, Estimat Glomerular Filtration Rate > 60, Glucose Level 274H, Calcium Level 8.6 Height (Feet): 5 Height (Inches): 2.00 Weight (Pounds): 187 General Appearance: lethargic EENT: normal ENT inspection Neck: normal alignment Cardiovascular: normal peripheral pulses, normal rate, regular rhythm Respiratory/Chest: chest wall non-tender, lungs clear, normal breath sounds Abdomen: normal bowel sounds, non tender, soft Extremities: normal inspection Edema: no edema noted Arm (L), no edema noted Arm (R), no edema noted Leg (L), no edema noted Leg (R), no edema noted Pedal (L), no edema noted Pedal (R), no edema noted Generalized Neurologic: motor weakness Skin: normal pigmentation, warm/dry Srini Cox DO Jan 18, 2019 09:17
[2019-01-18] MEDS: Levemir Flexpen SUBQ SCH ×3 (10:30→21:56)
[2019-01-18] MEDS: Lactulose 20gm/30ml UDC ORAL SCH (11:32)
--- NOTE | 2019-01-18 11:34 | Infectious Diseases Prog Note ---
Assessment/Plan Assessment/Plan 43yo gentleman with PMH below presents with worsened catheter site pain with spasms. He states that these symptoms are consistent with his previous UTI. Denies fever, chills, nausea, vomiting. Last catheter changed early December. Afebrile Mild leukocytosis, SP Likely UTI pt reports monthly episodes UA WBC TNTC, nitrite positive UCx: ESBL Klebsiella, GNR DM paraplegia chronic pain labile affect Plan: Meropenem #1/5. recommend nitrofurantoin 100mg QHS PPX with probiotics after completion of ertapenem. discussed plan with patient. pt understands risk of resistance development and C diff. 01/17 DC ertapenem #5. f/u Ucx bcx x2 aspiration precaution appreciate urology consult assistance Thank you for this consult. [facility] will continue to follow the patient with you. Subjective Allergies: Coded Allergies: CIPROFLOXACIN (Verified Allergy, Unknown, 06/14/18) HALOPERIDOL (Verified Allergy, Unknown, 06/14/18) POLYETHYLENE GLYCOL 3350 (Verified Allergy, Unknown, 01/16/19) per patient, makes constipation RISPERIDONE (Verified Allergy, Unknown, 06/14/18) SENNA (Verified Allergy, Unknown, 06/14/18) Subjective Afebrile. 2L NC. NAEON Pt is calm but forgetful Objective Vital Signs Last 24 Hour Vital Signs Date Time Temp Pulse Resp B/P (MAP) Pulse Ox O2 Delivery O2 Flow Rate FiO2 01/18/19 09:00 Nasal Cannula 2.0 01/18/19 08:46 69 128/68 01/18/19 08:04 99 Nasal Cannula 2.0 28 01/18/19 08:00 96.8 69 16 128/68 (88) 98 01/18/19 04:00 98.2 89 20 137/80 (99) 100 01/18/19 00:00 98.6 71 20 103/69 (80) 99 01/17/19 21:06 99 Nasal Cannula 2.0 28 01/17/19 21:00 Nasal Cannula 2.0 01/17/19 20:00 97.9 79 17 125/70 (88) 100 01/17/19 18:35 98.0 01/17/19 17:58 Nasal Cannula 2.0 01/17/19 15:52 98.0 80 18 128/77 (94) 99 01/17/19 15:52 80 18 100 Nasal Cannula 2.0 28 78 18 100 01/17/19 14:55 98.2 01/17/19 12:00 98.2 80 18 122/78 (93) 100 Height (Feet): 5 Height (Inches): 2.00 Weight (Pounds): 187 Objective Gen: NAD. periodically shaking heads involuntarily HEENT: anicteric sclera CV: RRR Resp: Unlabored. no wheezes or crackles. Abd: soft. no TTP. suprapubic catheter site unable to be visualized due to pannus and pt reporting pain Ext: no LE edema Neuro: interactive Laboratory Tests Test 01/18/19 07:45 White Blood Count 8.3 K/UL (4.8-10.8) Red Blood Count 3.94 M/UL (4.70-6.10) L Hemoglobin 11.2 G/DL (14.2-18.0) L Hematocrit 32.6 % (42.0-52.0) L Mean Corpuscular Volume 83 FL (80-99) Mean Corpuscular Hemoglobin 28.4 PG (27.0-31.0) Mean Corpuscular Hemoglobin Concent 34.2 G/DL (32.0-36.0) Red Cell Distribution Width 15.2 % (11.6-14.8) H Platelet Count 188 K/UL (150-450) Mean Platelet Volume 5.3 FL (6.5-10.1) L Neutrophils (%) (Auto) 66.2 % (45.0-75.0) Lymphocytes (%) (Auto) 21.0 % (20.0-45.0) Monocytes (%) (Auto) 7.6 % (1.0-10.0) Eosinophils (%) (Auto) 4.1 % (0.0-3.0) H Basophils (%) (Auto) 1.0 % (0.0-2.0) Sodium Level 137 MMOL/L (136-145) Potassium Level 4.4 MMOL/L (3.5-5.1) Chloride Level 103 MMOL/L (98-107) Carbon Dioxide Level 23 MMOL/L (21-32) Anion Gap 11 mmol/L (5-15) Blood Urea Nitrogen 24 mg/dL (7-18) H Creatinine 0.5 MG/DL (0.55-1.30) L Estimat Glomerular Filtration Rate > 60 mL/min (>60) Glucose Level 274 MG/DL (74-106) H Calcium Level 8.6 MG/DL (8.5-10.1) Current Medications Medications (Trade) Dose Ordered Sig/Trevin Route PRN Reason Start Time Stop Time Status Last Admin Dose Admin Acetaminophen (Tylenol) 650 mg Q4H PRN ORAL Mild Pain/Temp > 100.5 01/13/19 08:00 02/12/19 07:59 Acetaminophen (Tylenol) 650 mg Q6H PRN ORAL Temp > 100 01/13/19 08:00 02/12/19 07:59 Albuterol/ Ipratropium (Albuterol/ Ipratropium) 3 ml Q6H PRN HHN Shortness of Breath 01/14/19 10:15 01/19/19 10:14 01/17/19 15:49 Ascorbic Acid (Vitamin C) 500 mg TWICE A DAY ORAL 01/13/19 09:00 02/12/19 08:59 01/18/19 08:45 Aspirin (Ecotrin) 81 mg DAILY ORAL 01/13/19 09:00 02/12/19 08:59 01/18/19 08:46 Atorvastatin Calcium (Lipitor) 40 mg BEDTIME ORAL 01/13/19 21:00 02/12/19 20:59 01/17/19 21:31 Baclofen (Lioresal) 10 mg THREE TIMES A DAY PRN ORAL muscle spasm 01/14/19 09:15 02/13/19 09:14 01/15/19 12:53 Clonidine HCl (Catapres TTS-1) 1 patch QWEEK TDERMAL 01/16/19 09:00 02/15/19 08:59 01/16/19 11:55 Dextrose (Dextrose 50%) 25 ml Q30M PRN IV Hypoglycemia 01/13/19 08:30 02/12/19 08:29 Dextrose (Dextrose 50%) 50 ml Q30M PRN IV Hypoglycemia 01/13/19 08:30 02/12/19 08:29 Dextrose/Sodium Chloride 1,000 ml @ 60 mls/hr [id number] IV 01/13/19 07:45 02/12/19 07:44 01/18/19 04:39 Diphenhydramine HCl (Benadryl) 25 mg HSPRN PRN ORAL for insomnia , itching 01/13/19 08:00 02/12/19 07:59 Docusate Sodium (Colace) 100 mg DAILY ORAL 01/13/19 09:00 02/12/19 08:59 01/18/19 08:47 Famotidine (Pepcid) 20 mg BID ORAL 01/13/19 09:00 02/12/19 08:59 01/18/19 08:45 Fluphenazine HCl (Prolixin) 5 mg TWICE A DAY ORAL 01/13/19 10:15 02/12/19 10:14 01/18/19 08:46 Gabapentin (Neurontin) 200 mg TID ORAL 01/14/19 13:00 02/12/19 08:59 01/18/19 08:45 Heparin Sodium (Porcine) (Heparin 5000 units/ml) 5,000 units EVERY 12 HOURS SUBQ 01/13/19 21:00 02/12/19 20:59 01/18/19 08:53 Ibuprofen (Motrin) 600 mg Q6H PRN ORAL For Pain 01/13/19 08:00 02/12/19 07:59 01/13/19 14:36 Insulin Aspart (NovoLOG) BEFORE MEALS AND HS SUBQ 01/13/19 11:30 02/12/19 11:29 01/18/19 06:48 Insulin Aspart (NovoLOG) 8 units NOVOTIAC SUBQ 01/18/19 11:50 02/17/19 11:49 Insulin Detemir (Levemir) 18 units BID SUBQ 01/18/19 09:00 02/12/19 20:59 01/18/19 10:30 Lactulose (Cephulac) 30 gm DAILY ORAL 01/18/19 11:00 02/14/19 12:59 Lactulose (Cephulac) 30 gm DAILYPRN PRN ORAL Constipation 01/17/19 13:30 02/16/19 13:29 Lorazepam (Ativan) 1 mg Q6H PRN ORAL For Anxiety 01/13/19 08:30 01/20/19 08:29 01/17/19 21:31 Magnesium Hydroxide (Mom) 30 ml DAILYPRN PRN ORAL Constipation 01/13/19 08:30 02/12/19 08:29 Meropenem 1 gm/ Sodium Chloride 55 ml @ 110 mls/hr Q8HR IVPB 01/18/19 14:00 01/23/19 13:59 Metformin HCl (Glucophage) 500 mg TWICE A DAY ORAL 01/13/19 09:00 02/12/19 08:59 01/18/19 08:47 Methadone HCl (Methadone HCl) 5 mg TWICE A DAY ORAL 01/13/19 18:00 01/20/19 08:43 01/17/19 17:01 Metoprolol Succinate (Toprol XL) 25 mg DAILY ORAL 01/13/19 09:00 02/12/19 08:59 01/18/19 08:46 Morphine Sulfate (Morphine Sulfate) 4 mg Q6H PRN IVP severe pain 01/14/19 09:15 01/21/19 09:14 01/18/19 08:45 Nateglinide (Starlix) 120 mg TIAC ORAL 01/17/19 16:30 02/16/19 16:29 01/18/19 11:01 Ondansetron HCl (Zofran) 4 mg Q4H PRN IVP Nausea & Vomiting 01/13/19 08:00 02/12/19 07:59 01/16/19 18:21 Oxycodone/ Acetaminophen (Percocet 10/325) 1 tab Q4H PRN ORAL moderate pain 01/14/19 09:15 01/21/19 09:14 01/18/19 11:05 Simethicone (Mylicon) 80 mg THREE TIMES A DAY PRN ORAL Abdominal cramps 01/13/19 08:00 02/12/19 07:59 Sodium Phosphate (Fleet's Sodium Phosl Enema) 133 ml DAILYPRN PRN RECTAL Constipation 01/15/19 16:00 02/14/19 15:59 01/17/19 10:31 Trazodone HCl (Desyrel) 50 mg QHS PRN ORAL Insomnia 01/13/19 08:00 02/12/19 07:59 01/17/19 22:46 Zinc Sulfate (Zinc Sulfate) 220 mg DAILY ORAL 01/13/19 09:00 02/12/19 08:59 01/18/19 08:47 Dianna Dhaliwal MD Jan 18, 2019 11:34
[2019-01-18 12:00] VITALS: BP 144/84
--- NOTE | 2019-01-18 12:11 | General Progress Note ---
Assessment/Plan Status: stable, progressing Assessment/Plan: Assessment/Plan Problems: (1) Constipation ICD Codes: K59.00 - Constipation, unspecified SNOMED: 22648671 (2) Abdominal bloating ICD Codes: R14.0 - Abdominal distension (gaseous) SNOMED: 500781962 (3) Paraplegia ICD Codes: G82.20 - Paraplegia, unspecified SNOMED: 28124386 Status: stable, unchanged . Assessment/Plan This is a 43-year-old male with constipation associated with narcotics OIC. KUB reviewed negative patient reported BM yesterday anemia work up reviewed bowel regime colace, miralax lactulose daily and prn simethicone prn for abdominal bloating enema prn for severe constipation consider relistor sq if abdominal bloating does not decrease follow labs Subjective ROS Limited/Unobtainable: Yes Allergies: Coded Allergies: CIPROFLOXACIN (Verified Allergy, Unknown, 06/14/18) HALOPERIDOL (Verified Allergy, Unknown, 06/14/18) POLYETHYLENE GLYCOL 3350 (Verified Allergy, Unknown, 01/16/19) per patient, makes constipation RISPERIDONE (Verified Allergy, Unknown, 06/14/18) SENNA (Verified Allergy, Unknown, 06/14/18) Objective Last 24 Hour Vital Signs Date Time Temp Pulse Resp B/P (MAP) Pulse Ox O2 Delivery O2 Flow Rate FiO2 01/18/19 09:00 Nasal Cannula 2.0 01/18/19 08:46 69 128/68 01/18/19 08:04 99 Nasal Cannula 2.0 28 01/18/19 08:00 96.8 69 16 128/68 (88) 98 01/18/19 04:00 98.2 89 20 137/80 (99) 100 01/18/19 00:00 98.6 71 20 103/69 (80) 99 01/17/19 21:06 99 Nasal Cannula 2.0 28 01/17/19 21:00 Nasal Cannula 2.0 01/17/19 20:00 97.9 79 17 125/70 (88) 100 01/17/19 18:35 98.0 01/17/19 17:58 Nasal Cannula 2.0 01/17/19 15:52 98.0 80 18 128/77 (94) 99 01/17/19 15:52 80 18 100 Nasal Cannula 2.0 28 78 18 100 01/17/19 14:55 98.2 Intake and Output 01/17/19 01/18/19 19:00 07:00 Intake Total 2040 ml 780 ml Output Total 2000 ml 2000 ml Balance 40 ml -1220 ml Intake Oral 1320 ml 360 ml IV Total 720 ml 120 ml Other 300 ml Output Urine Total 2000 ml 2000 ml # Voids 3 # Bowel Movements 2 1 Laboratory Tests 01/18/19 07:45: White Blood Count 8.3, Red Blood Count 3.94L, Hemoglobin 11.2L, Hematocrit 32.6L , Mean Corpuscular Volume 83, Mean Corpuscular Hemoglobin 28.4, Mean Corpuscular Hemoglobin Concent 34.2, Red Cell Distribution Width 15.2H, Platelet Count 188, Mean Platelet Volume 5.3L, Neutrophils (%) (Auto) 66.2, Lymphocytes (%) (Auto) 21.0, Monocytes (%) (Auto) 7.6, Eosinophils (%) (Auto) 4.1H, Basophils (%) (Auto) 1.0, Sodium Level 137, Potassium Level 4.4, Chloride Level 103, Carbon Dioxide Level 23, Anion Gap 11, Blood Urea Nitrogen 24H, Creatinine 0.5L, Estimat Glomerular Filtration Rate > 60, Glucose Level 274H, Calcium Level 8.6 Height (Feet): 5 Height (Inches): 2.00 Weight (Pounds): 187 General Appearance: alert EENT: normal ENT inspection Neck: supple Cardiovascular: normal rate Respiratory/Chest: decreased breath sounds Abdomen: normal bowel sounds, non tender, soft Extremities: non-tender Chris Lowery MD Jan 18, 2019 12:11
--- NOTE | 2019-01-18 13:20 | Pulmonology Progress Note ---
Assessment/Plan Problems: (1) UTI due to extended-spectrum beta lactamase (ESBL) producing Escherichia coli (2) Diabetes mellitus (3) Intractable back pain (4) Bladder spasm (5) Spina bifida (6) Paraplegia (7) Chronic pain Assessment/Plan doing better symptomatic treatment laxatives pain control f/u by psych all reviewed. ok to dc Subjective ROS Limited/Unobtainable: Yes HEENT: Repors: no symptoms Respiratory: Reports: no symptoms Allergies: Coded Allergies: CIPROFLOXACIN (Verified Allergy, Unknown, 06/14/18) HALOPERIDOL (Verified Allergy, Unknown, 06/14/18) POLYETHYLENE GLYCOL 3350 (Verified Allergy, Unknown, 01/16/19) per patient, makes constipation RISPERIDONE (Verified Allergy, Unknown, 06/14/18) SENNA (Verified Allergy, Unknown, 06/14/18) Objective Last 24 Hour Vital Signs Date Time Temp Pulse Resp B/P (MAP) Pulse Ox O2 Delivery O2 Flow Rate FiO2 01/18/19 09:00 Nasal Cannula 2.0 01/18/19 08:46 69 128/68 01/18/19 08:04 99 Nasal Cannula 2.0 28 01/18/19 08:00 96.8 69 16 128/68 (88) 98 01/18/19 04:00 98.2 89 20 137/80 (99) 100 01/18/19 00:00 98.6 71 20 103/69 (80) 99 01/17/19 21:06 99 Nasal Cannula 2.0 28 01/17/19 21:00 Nasal Cannula 2.0 01/17/19 20:00 97.9 79 17 125/70 (88) 100 01/17/19 18:35 98.0 01/17/19 17:58 Nasal Cannula 2.0 01/17/19 15:52 98.0 80 18 128/77 (94) 99 01/17/19 15:52 80 18 100 Nasal Cannula 2.0 28 78 18 100 01/17/19 14:55 98.2 Intake and Output 01/17/19 01/18/19 19:00 07:00 Intake Total 2040 ml 780 ml Output Total 2000 ml 2000 ml Balance 40 ml -1220 ml Intake Oral 1320 ml 360 ml IV Total 720 ml 120 ml Other 300 ml Output Urine Total 2000 ml 2000 ml # Voids 3 # Bowel Movements 2 1 General Appearance: WD/WN HEENT: normocephalic, atraumatic Respiratory/Chest: chest wall non-tender, lungs clear Cardiovascular: normal peripheral pulses, normal rate Abdomen: normal bowel sounds, soft, non tender Genitourinary: normal external genitalia Extremities: no clubbing Skin: no rash Laboratory Tests 01/18/19 07:45: White Blood Count 8.3, Red Blood Count 3.94L, Hemoglobin 11.2L, Hematocrit 32.6L , Mean Corpuscular Volume 83, Mean Corpuscular Hemoglobin 28.4, Mean Corpuscular Hemoglobin Concent 34.2, Red Cell Distribution Width 15.2H, Platelet Count 188, Mean Platelet Volume 5.3L, Neutrophils (%) (Auto) 66.2, Lymphocytes (%) (Auto) 21.0, Monocytes (%) (Auto) 7.6, Eosinophils (%) (Auto) 4.1H, Basophils (%) (Auto) 1.0, Sodium Level 137, Potassium Level 4.4, Chloride Level 103, Carbon Dioxide Level 23, Anion Gap 11, Blood Urea Nitrogen 24H, Creatinine 0.5L, Estimat Glomerular Filtration Rate > 60, Glucose Level 274H, Calcium Level 8.6 Current Medications Medications (Trade) Dose Ordered Sig/Trevin Route PRN Reason Start Time Stop Time Status Last Admin Dose Admin Acetaminophen (Tylenol) 650 mg Q4H PRN ORAL Mild Pain/Temp > 100.5 01/13/19 08:00 02/12/19 07:59 Acetaminophen (Tylenol) 650 mg Q6H PRN ORAL Temp > 100 01/13/19 08:00 02/12/19 07:59 Albuterol/ Ipratropium (Albuterol/ Ipratropium) 3 ml Q6H PRN HHN Shortness of Breath 01/14/19 10:15 01/19/19 10:14 01/17/19 15:49 Ascorbic Acid (Vitamin C) 500 mg TWICE A DAY ORAL 01/13/19 09:00 02/12/19 08:59 01/18/19 08:45 Aspirin (Ecotrin) 81 mg DAILY ORAL 01/13/19 09:00 02/12/19 08:59 01/18/19 08:46 Atorvastatin Calcium (Lipitor) 40 mg BEDTIME ORAL 01/13/19 21:00 02/12/19 20:59 01/17/19 21:31 Baclofen (Lioresal) 10 mg THREE TIMES A DAY PRN ORAL muscle spasm 01/14/19 09:15 02/13/19 09:14 01/15/19 12:53 Clonidine HCl (Catapres TTS-1) 1 patch QWEEK TDERMAL 01/16/19 09:00 02/15/19 08:59 01/16/19 11:55 Dextrose (Dextrose 50%) 25 ml Q30M PRN IV Hypoglycemia 01/13/19 08:30 02/12/19 08:29 Dextrose (Dextrose 50%) 50 ml Q30M PRN IV Hypoglycemia 01/13/19 08:30 02/12/19 08:29 Dextrose/Sodium Chloride 1,000 ml @ 60 mls/hr [id number] IV 01/13/19 07:45 02/12/19 07:44 01/18/19 04:39 Diphenhydramine HCl (Benadryl) 25 mg HSPRN PRN ORAL for insomnia , itching 01/13/19 08:00 02/12/19 07:59 Docusate Sodium (Colace) 100 mg DAILY ORAL 01/13/19 09:00 02/12/19 08:59 01/18/19 08:47 Famotidine (Pepcid) 20 mg BID ORAL 01/13/19 09:00 02/12/19 08:59 01/18/19 08:45 Fluphenazine HCl (Prolixin) 5 mg TWICE A DAY ORAL 01/13/19 10:15 02/12/19 10:14 01/18/19 08:46 Gabapentin (Neurontin) 200 mg TID ORAL 01/14/19 13:00 02/12/19 08:59 01/18/19 12:26 Heparin Sodium (Porcine) (Heparin 5000 units/ml) 5,000 units EVERY 12 HOURS SUBQ 01/13/19 21:00 02/12/19 20:59 01/18/19 08:53 Ibuprofen (Motrin) 600 mg Q6H PRN ORAL For Pain 01/13/19 08:00 02/12/19 07:59 01/13/19 14:36 Insulin Aspart (NovoLOG) BEFORE MEALS AND HS SUBQ 01/13/19 11:30 02/12/19 11:29 01/18/19 11:36 Insulin Aspart (NovoLOG) 8 units NOVOTIAC SUBQ 01/18/19 11:50 02/17/19 11:49 01/18/19 12:28 Insulin Detemir (Levemir) 18 units BID SUBQ 01/18/19 09:00 02/12/19 20:59 01/18/19 10:30 Lactulose (Cephulac) 30 gm DAILY ORAL 01/18/19 11:00 02/14/19 12:59 01/18/19 11:32 Lactulose (Cephulac) 30 gm DAILYPRN PRN ORAL Constipation 01/17/19 13:30 02/16/19 13:29 Lorazepam (Ativan) 1 mg Q6H PRN ORAL For Anxiety 01/13/19 08:30 01/20/19 08:29 01/17/19 21:31 Magnesium Hydroxide (Mom) 30 ml DAILYPRN PRN ORAL Constipation 01/13/19 08:30 02/12/19 08:29 Meropenem 1 gm/ Sodium Chloride 55 ml @ 110 mls/hr Q8HR IVPB 01/18/19 14:00 01/23/19 13:59 Metformin HCl (Glucophage) 500 mg TWICE A DAY ORAL 01/13/19 09:00 02/12/19 08:59 01/18/19 08:47 Methadone HCl (Methadone HCl) 5 mg TWICE A DAY ORAL 01/13/19 18:00 01/20/19 08:43 01/17/19 17:01 Metoprolol Succinate (Toprol XL) 25 mg DAILY ORAL 01/13/19 09:00 02/12/19 08:59 01/18/19 08:46 Morphine Sulfate (Morphine Sulfate) 4 mg Q6H PRN IVP severe pain 01/14/19 09:15 01/21/19 09:14 01/18/19 08:45 Nateglinide (Starlix) 120 mg TIAC ORAL 01/17/19 16:30 02/16/19 16:29 01/18/19 11:01 Ondansetron HCl (Zofran) 4 mg Q4H PRN IVP Nausea & Vomiting 01/13/19 08:00 02/12/19 07:59 01/16/19 18:21 Oxycodone/ Acetaminophen (Percocet 10/325) 1 tab Q4H PRN ORAL moderate pain 01/14/19 09:15 01/21/19 09:14 01/18/19 11:05 Simethicone (Mylicon) 80 mg THREE TIMES A DAY PRN ORAL Abdominal cramps 01/13/19 08:00 02/12/19 07:59 Sodium Phosphate (Fleet's Sodium Phosl Enema) 133 ml DAILYPRN PRN RECTAL Constipation 01/15/19 16:00 02/14/19 15:59 01/17/19 10:31 Trazodone HCl (Desyrel) 50 mg QHS PRN ORAL Insomnia 01/13/19 08:00 02/12/19 07:59 01/17/19 22:46 Zinc Sulfate (Zinc Sulfate) 220 mg DAILY ORAL 01/13/19 09:00 02/12/19 08:59 01/18/19 08:47 Joao Siu MD Jan 18, 2019 13:20
--- NOTE | 2019-01-18 14:10 | NUR ---
*-* DISCHARGE PLANNING *-* PATIENT HAS BEEN REFERRED TO: [facility] P: [phone] F: [phone] [facility] P: [phone] F: [phone] [facility] p; [phone] F: [phone] [facility] P; [phone] F: [phone]
[2019-01-18] MEDS: Meropenem 1 GM in NS 55 ML IVPB SCH ×2 (14:26→22:36)
--- NOTE | 2019-01-18 15:00 | Progress Note ---
DATE: 01/18/2019 SUBJECTIVE: This is a male patient who is 43 years old. He has urinary tract infection but this patient continues to have , disorganized thought process, and altered mental status worsened by stress of his medical illness. He has decline in cognition below his baseline, confusion, sepsis, altered mental status. DIAGNOSIS: Paranoid schizophrenia with acute exacerbation. PLAN: Ativan 1 every 6 hours p.r.n. anxiety and agitation, Neurontin 300 mg three times a day, Prolixin 5 mg twice a day. A 20 minutes of cognitive behavioral therapy to help him identify his automatic negative thoughts and help convert negative thoughts to more positive thoughts to reduce depression, anxiety, and mood lability. Chart reviewed. Discussed with staff. Seen and assessed at bedside. Rosalino Caraballo M.D. DR: Joi JOB#: [id number] CC:
--- NOTE | 2019-01-18 15:30 | Consultation ---
DATE OF CONSULTATION: 01/18/2019 ENDOCRINOLOGY CONSULTATION CONSULTING PHYSICIAN: Arden Rossi M.D. REFERRING PHYSICIAN: Srini Cox D.O. REASON FOR CONSULTATION: Diabetes management. HISTORY OF PRESENT ILLNESS: The patient is a 43-year-old male with past medical history of diabetes and atherosclerosis who presented to the hospital on 01/13/2019 for evaluation at long-term with urinary tract infection and sepsis. Glucose is elevated; therefore Endocrinology was consulted in order to assist in the management of diabetes. The patient has a suprapubic catheter. PAST MEDICAL HISTORY: 1. Paraplegia. 2. Depression. 3. Diabetes. 4. Hypertension. 5. Chronic pain. 6. Sacral wound. 7. Multiple sclerosis. PAST SURGICAL HISTORY: Suprapubic catheter. MEDICATIONS: Reviewed and reconciled. ALLERGIES: Cipro, Haldol, Risperdal, and senna. SOCIAL HISTORY: she is in halfway facility. REVIEW OF SYSTEMS: As per history of present illness. PHYSICAL EXAMINATION: VITAL SIGNS: Blood pressure 110/80, pulse 80, temperature 98.2, respiratory rate of 18. HEENT: Pupils are reactive to light. Sclerae anicteric. NECK: No JVD. HEART: Regular rate and rhythm. ABDOMEN: Positive bowel sounds. Suprapubic catheter noted. EXTREMITIES: Positive for edema. LABORATORY VALUES: WBC 7.9, hemoglobin 11.6, hematocrit 35.8, platelets of 219. Sodium 142, potassium 4.8, chloride 101, bicarb 24, BUN 18, creatinine 0.7, glucose of 319. Hemoglobin A1c of 8.4. DIAGNOSES: 1. Urinary tract infection. 2. Paraplegia. 3. Diabetes out of control. PLAN: 1. Change Levemir to 18 units twice a day. 2. Add NovoLog 8 units before each meal. 3. Continue metformin. 4. Continue Starlix. 5. Continue NovoLog sliding scale before meals and at bedtime. 6. Further adjustment according to blood glucose values. Thank you, Dr. Cox, for the courtesy of this consultation. Arden Rossi M.D. DR: OBED/clair JOB#: [id number] CC: CHANTEL
--- NOTE | 2019-01-18 15:32 | Surgery Progress Note ---
Surgery Progress Note Subjective Additional Comments seen by urology catheter changed to 3way and flushed doing well no n/v/f/c comfortable ready for d/c Objective Last 24 Hour Vital Signs Date Time Temp Pulse Resp B/P (MAP) Pulse Ox O2 Delivery O2 Flow Rate FiO2 01/18/19 12:00 97.2 72 20 144/84 (104) 99 01/18/19 09:00 Nasal Cannula 2.0 01/18/19 08:46 69 128/68 01/18/19 08:04 99 Nasal Cannula 2.0 28 01/18/19 08:00 96.8 69 16 128/68 (88) 98 01/18/19 04:00 98.2 89 20 137/80 (99) 100 01/18/19 00:00 98.6 71 20 103/69 (80) 99 01/17/19 21:06 99 Nasal Cannula 2.0 28 01/17/19 21:00 Nasal Cannula 2.0 01/17/19 20:00 97.9 79 17 125/70 (88) 100 01/17/19 18:35 98.0 01/17/19 17:58 Nasal Cannula 2.0 01/17/19 15:52 98.0 80 18 128/77 (94) 99 01/17/19 15:52 80 18 100 Nasal Cannula 2.0 28 78 18 100 I&O Intake and Output 01/17/19 01/18/19 19:00 07:00 Intake Total 2040 ml 780 ml Output Total 2000 ml 2000 ml Balance 40 ml -1220 ml Intake Oral 1320 ml 360 ml IV Total 720 ml 120 ml Other 300 ml Output Urine Total 2000 ml 2000 ml # Voids 3 # Bowel Movements 2 1 Dressing: saturated Wound: other Drains: other Cardiovascular: RSR Respiratory: clear, decreased breath sounds Abdomen: soft, present bowel sounds Extremities: no cyanosis, other Laboratory Tests Test 01/18/19 07:45 White Blood Count 8.3 K/UL (4.8-10.8) Red Blood Count 3.94 M/UL (4.70-6.10) L Hemoglobin 11.2 G/DL (14.2-18.0) L Hematocrit 32.6 % (42.0-52.0) L Mean Corpuscular Volume 83 FL (80-99) Mean Corpuscular Hemoglobin 28.4 PG (27.0-31.0) Mean Corpuscular Hemoglobin Concent 34.2 G/DL (32.0-36.0) Red Cell Distribution Width 15.2 % (11.6-14.8) H Platelet Count 188 K/UL (150-450) Mean Platelet Volume 5.3 FL (6.5-10.1) L Neutrophils (%) (Auto) 66.2 % (45.0-75.0) Lymphocytes (%) (Auto) 21.0 % (20.0-45.0) Monocytes (%) (Auto) 7.6 % (1.0-10.0) Eosinophils (%) (Auto) 4.1 % (0.0-3.0) H Basophils (%) (Auto) 1.0 % (0.0-2.0) Sodium Level 137 MMOL/L (136-145) Potassium Level 4.4 MMOL/L (3.5-5.1) Chloride Level 103 MMOL/L (98-107) Carbon Dioxide Level 23 MMOL/L (21-32) Anion Gap 11 mmol/L (5-15) Blood Urea Nitrogen 24 mg/dL (7-18) H Creatinine 0.5 MG/DL (0.55-1.30) L Estimat Glomerular Filtration Rate > 60 mL/min (>60) Glucose Level 274 MG/DL (74-106) H Calcium Level 8.6 MG/DL (8.5-10.1) Plan Problems: (1) Abdominal pain (2) Pelvic pain Assessment & Plan: Patient presented complaining of worsening pelvic and abdominal discomfort. States he says suprapubic catheter for some time now and recently it was pulled out at a different facility by a nurse and felt discomfort and has not felt better since. Initial bleeding but currently no bleeding. Catheter to Morales drainage bag with clear urine. Pain believed to be potentially related to bladder spasms as he says he had them diagnosed in the past and feels that similar. On examination obese male with no acute findings catheter in place stable with some pericatheter inflammation but very minimal. No drainage no abscess. Catheter functional and stable. No acute surgical intervention recommended. Will monitor follow with recommendations. KUB Bowel gas pattern is nonspecific. No mass, ectopic calcifications, or abnormal gas collections are identified. 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 Sacroiliac joints are fused. Bones are diffusely osteopenic. Impression: No acute findings suprapubic cath changed symptoms improved cath flushed and okay d/c [planning (3) Decubital ulcer Assessment & Plan: Patient presents with multiple decubitus ulcers. He has limited mobility in his upper and lower extremities and is fairly bedbound and wheelchair-bound. Uses most functionality through blowing breathing tube. He is identified to have a 1.5 cm x 1 cm x 3 mm stage III sacral decubitus ulcer forming. No drainage periwound intact no signs of acute active inflammation or or infectious process. Patient also identified to have a right issue ulcer 3 cm x 2 cm stage III decubitus ulcer formation with granulation tissue in the base periwound intact with some erythema no drainage no purulence no signs of active infection. Bilateral heels soft and leg and legs and feet with contractures. Treatment Plan: Wash sacral and right ischial wound daily with normal saline/soap and water. Apply Thera honey or hydrogel impregnated gauze followed by foam dressing. Change daily and as needed saturation turn every 2 hours offload pressure Foam dressings on heel for protection heel protective dressings followed by offloading heel pressures with pillow Monitor for dermatitis associated incontinence and ensure to clean as necessary. Air soft mattress okay for transitioning to wheelchair when necessary Nutritional supplementation DAILY ESTIMATED NEEDS: Needs based on Bed bound, paraplegia, wound 65kg adj 23-30 kcals/kg [id number] total kcals 1.25-2 g protein/kg 81-130 g total protein 25-30 mL/kg [id number] total fluid mLs NUTRITION DIAGNOSIS: 1) Increased protein needs r/t wound healing as evidenced by pt w/ full thickness wounds on sacrum and BL ischium. (CURRENT DIET: CCHO MED) PO DIET RECOMMENDATIONS: CCHO LOW W/ DOUBLE PROTEIN PORTIONS ADDITIONAL RECOMMENDATIONS: 1) Wound care: add JIM BID + VIT C 250mg BID + MVI x1 daily 2) Check A1C- 8.4 3) RE-calibrate bed scale for accurate CBW 4) Diet edu as able . Endy De La Rosa Jan 18, 2019 15:32
--- NOTE | 2019-01-18 15:46 | NUR ---
*-* MEDICARE APPEAL *-* CASE MANAGEMENT HAS APPEAL ON BEHALF OF THE PATIENT GLEN P: [phone] [id number]
[2019-01-18] MEDS ORDERED: MERREM1 GM IV (17:58)
--- NOTE | 2019-01-18 18:11 | NUR ---
NURSE NOTES: CALLED [facility] AND GAVE REPORT TO
--- NOTE | 2019-01-18 19:40 | NUR ---
Received report from Tan CLAY. Per aTn Pt being discharged and going to [facility] ambulance arrived pt refused to leave. Dr Cox notified. . Pt awake alert no acute distress [facility] wheel [facility] and I Phone,. on assessment . Pt awake alert Pt has 2 NC @ litters. IV to RAC patent and running D51/2 @ 60ml/hr. pt quadriplegic able to make needs known very demanding at times. orders resumed. contact precautions reinforced Pt instructed to call for assistance call light in reach bed in lowest position. will continue to Monitor patient condition.
--- NOTE | 2019-01-18 19:52 | NUR ---
HAND-OFF: Report given to OBED GREWAL.
[2019-01-18 20:00] VITALS: BP 137/89
[2019-01-18] MEDS: Atorvastatin 80mg tab ORAL SCH (20:54)
[2019-01-18] MEDS: TraZODone 50mg tab ORAL PRN (22:32)
[2019-01-19] VITALS: BP 100/69
[2019-01-19] MEDS: LORazepam 1mg tab ORAL PRN ×3 (00:14→17:16)
--- NOTE | 2019-01-19 04:15 | Progress Note ---
DATE: 01/17/2019 PSYCHOTHERAPY CONSULTATION PROGRESS NOTE SUBJECTIVE: The patient is a 43-year-old male patient depressed who is coming today aggravated and agitated and poor frustration tolerance nursing staff. MENTAL STATUS EXAMINATION: The patient is alert and oriented to person and place. is anxious. . Thought process, the patient has poor attention and concentration. Poor insight, judgment, and impulse control. The patient . The patient is confused and disorganized. The patient was provided with supportive psychotherapy which would provide the patient with emotional distress. identifying positive coping skills anxiety and agitation. Plan is to maintain medication compliance with positive coping skills and stabilizing thoughts and behavior. Psychotherapeutic services 20 minutes. This clinician has reviewed the patient's chart and discussed the treatment with treatment team. Ashly Pacheco PsyD. DR: LORI JOB#: [id number] CC:
[2019-01-19] MEDS: Meropenem 1 GM in NS 55 ML IVPB SCH ×3 (05:29→21:02)
[2019-01-19] MEDS: Morphine Sulfate 4mg/ml Inj (IV USE ONLY) IVP PRN ×3 (06:26→18:26)
[2019-01-19] MEDS: NovoLOG Insulin Flexpen SUBQ SCH ×7 (06:30→21:22)
--- NOTE | 2019-01-19 07:37 | NUR ---
Nurse Notes Report given to Curtis CLAY
--- NOTE | 2019-01-19 07:45 | NUR ---
Nurses Notes Spoke with Dr Dhaliwal [facility] spoke with Esthela regarding urine results per Carlos pt has ESBL and MDR organism in the urine will notified ongoing nurse to f/u
[2019-01-19 08:00] VITALS: BP 117/63
--- NOTE | 2019-01-19 08:30 | NUR ---
NURSE NOTES: RN SPOKE TO DR BROOKS REGARDING MDR OF URINE. PER DR BROOKS, SHE WILL SPEAK TO LAB. NO NEW ORDERS RECEIVED.
--- NOTE | 2019-01-19 08:41 | Infectious Diseases Prog Note ---
Assessment/Plan Assessment/Plan 43yo gentleman with PMH below presents with worsened catheter site pain with spasms. He states that these symptoms are consistent with his previous UTI. Denies fever, chills, nausea, vomiting. Last catheter changed early December. Afebrile Mild leukocytosis, SP Likely UTI pt reports monthly episodes UA WBC TNTC, nitrite positive UCx: ESBL Klebsiella, MDR-PSA Hep Panel : neg \ DM paraplegia chronic pain labile affect Plan: add Ceftaz # 1 ( MDR_PSA) Meropenem #2/5. recommend nitrofurantoin 100mg QHS PPX with probiotics after completion of ertapenem. discussed plan with patient. pt understands risk of resistance development and C diff. 01/17 Sp ertapenem #5. bcx x2 aspiration precaution appreciate urology consult assistance Subjective Allergies: Coded Allergies: CIPROFLOXACIN (Verified Allergy, Unknown, 06/14/18) HALOPERIDOL (Verified Allergy, Unknown, 06/14/18) POLYETHYLENE GLYCOL 3350 (Verified Allergy, Unknown, 01/16/19) per patient, makes constipation RISPERIDONE (Verified Allergy, Unknown, 06/14/18) SENNA (Verified Allergy, Unknown, 06/14/18) Subjective afebrile Objective Vital Signs Last 24 Hour Vital Signs Date Time Temp Pulse Resp B/P (MAP) Pulse Ox O2 Delivery O2 Flow Rate FiO2 01/19/19 06:50 78 16 98 Nasal Cannula 2.0 28 01/19/19 06:50 98 Nasal Cannula 2.0 28 01/19/19 00:00 97.7 100 20 100/69 (79) 01/18/19 21:00 Nasal Cannula 2.0 01/18/19 20:00 97.1 77 18 137/89 (105) 100 01/18/19 19:44 74 18 96 Nasal Cannula 2.0 28 01/18/19 19:44 98 Nasal Cannula 2.0 28 01/18/19 12:00 97.2 72 20 144/84 (104) 99 01/18/19 09:00 Nasal Cannula 2.0 01/18/19 08:46 69 128/68 Height (Feet): 5 Height (Inches): 2.00 Weight (Pounds): 187 HEENT: mucous membranes moist Respiratory/Chest: no respiratory distress Cardiovascular: regular rhythm Abdomen: soft, non tender Current Medications Medications (Trade) Dose Ordered Sig/Trevin Route PRN Reason Start Time Stop Time Status Last Admin Dose Admin Acetaminophen (Tylenol) 650 mg Q4H PRN ORAL Mild Pain/Temp > 100.5 01/13/19 08:00 02/12/19 07:59 Acetaminophen (Tylenol) 650 mg Q6H PRN ORAL Temp > 100 01/13/19 08:00 02/12/19 07:59 Albuterol/ Ipratropium (Albuterol/ Ipratropium) 3 ml Q6H PRN HHN Shortness of Breath 01/14/19 10:15 01/19/19 10:14 01/17/19 15:49 Ascorbic Acid (Vitamin C) 500 mg TWICE A DAY ORAL 01/13/19 09:00 02/12/19 08:59 01/18/19 17:22 Aspirin (Ecotrin) 81 mg DAILY ORAL 01/13/19 09:00 02/12/19 08:59 01/18/19 08:46 Atorvastatin Calcium (Lipitor) 40 mg BEDTIME ORAL 01/13/19 21:00 02/12/19 20:59 01/18/19 20:54 Baclofen (Lioresal) 10 mg THREE TIMES A DAY PRN ORAL muscle spasm 01/14/19 09:15 02/13/19 09:14 01/15/19 12:53 Clonidine HCl (Catapres TTS-1) 1 patch QWEEK TDERMAL 01/16/19 09:00 02/15/19 08:59 01/16/19 11:55 Dextrose (Dextrose 50%) 25 ml Q30M PRN IV Hypoglycemia 01/13/19 08:30 02/12/19 08:29 Dextrose (Dextrose 50%) 50 ml Q30M PRN IV Hypoglycemia 01/13/19 08:30 02/12/19 08:29 Dextrose/Sodium Chloride 1,000 ml @ 60 mls/hr [id number] IV 01/13/19 07:45 02/12/19 07:44 01/18/19 21:05 Diphenhydramine HCl (Benadryl) 25 mg HSPRN PRN ORAL for insomnia , itching 01/13/19 08:00 02/12/19 07:59 01/19/19 01:12 Docusate Sodium (Colace) 100 mg DAILY ORAL 01/13/19 09:00 02/12/19 08:59 01/18/19 08:47 Famotidine (Pepcid) 20 mg BID ORAL 01/13/19 09:00 02/12/19 08:59 01/18/19 17:21 Fluphenazine HCl (Prolixin) 5 mg TWICE A DAY ORAL 01/13/19 10:15 02/12/19 10:14 01/18/19 17:22 Gabapentin (Neurontin) 200 mg TID ORAL 01/14/19 13:00 02/12/19 08:59 01/18/19 17:23 Heparin Sodium (Porcine) (Heparin 5000 units/ml) 5,000 units EVERY 12 HOURS SUBQ 01/13/19 21:00 02/12/19 20:59 01/18/19 20:55 Ibuprofen (Motrin) 600 mg Q6H PRN ORAL For Pain 01/13/19 08:00 02/12/19 07:59 01/13/19 14:36 Insulin Aspart (NovoLOG) BEFORE MEALS AND HS SUBQ 01/13/19 11:30 02/12/19 11:29 01/19/19 06:30 Insulin Aspart (NovoLOG) 8 units NOVOTIAC SUBQ 01/18/19 11:50 02/17/19 11:49 01/19/19 07:10 Insulin Detemir (Levemir) 18 units BID SUBQ 01/18/19 09:00 02/12/19 20:59 01/18/19 21:56 Lactulose (Cephulac) 30 gm DAILY ORAL 01/18/19 11:00 02/14/19 12:59 01/18/19 11:32 Lactulose (Cephulac) 30 gm DAILYPRN PRN ORAL Constipation 01/17/19 13:30 02/16/19 13:29 Lorazepam (Ativan) 1 mg Q6H PRN ORAL For Anxiety 01/13/19 08:30 01/20/19 08:29 01/19/19 00:14 Magnesium Hydroxide (Mom) 30 ml DAILYPRN PRN ORAL Constipation 01/13/19 08:30 02/12/19 08:29 Meropenem 1 gm/ Sodium Chloride 55 ml @ 110 mls/hr Q8HR IVPB 01/18/19 14:00 01/23/19 13:59 01/19/19 05:29 Metformin HCl (Glucophage) 500 mg TWICE A DAY ORAL 01/13/19 09:00 02/12/19 08:59 01/18/19 17:21 Methadone HCl (Methadone HCl) 5 mg TWICE A DAY ORAL 01/13/19 18:00 01/20/19 08:43 01/18/19 17:23 Metoprolol Succinate (Toprol XL) 25 mg DAILY ORAL 01/13/19 09:00 02/12/19 08:59 01/18/19 08:46 Morphine Sulfate (Morphine Sulfate) 4 mg Q6H PRN IVP severe pain 01/14/19 09:15 01/21/19 09:14 01/19/19 06:26 Nateglinide (Starlix) 120 mg TIAC ORAL 01/17/19 16:30 02/16/19 16:29 01/19/19 06:12 Ondansetron HCl (Zofran) 4 mg Q4H PRN IVP Nausea & Vomiting 01/13/19 08:00 02/12/19 07:59 01/16/19 18:21 Oxycodone/ Acetaminophen (Percocet 10/325) 1 tab Q4H PRN ORAL moderate pain 01/14/19 09:15 01/21/19 09:14 01/18/19 11:05 Simethicone (Mylicon) 80 mg THREE TIMES A DAY PRN ORAL Abdominal cramps 01/13/19 08:00 02/12/19 07:59 Sodium Phosphate (Fleet's Sodium Phosl Enema) 133 ml DAILYPRN PRN RECTAL Constipation 01/15/19 16:00 02/14/19 15:59 01/17/19 10:31 Trazodone HCl (Desyrel) 50 mg QHS PRN ORAL Insomnia 01/13/19 08:00 02/12/19 07:59 01/18/19 22:32 Zinc Sulfate (Zinc Sulfate) 220 mg DAILY ORAL 01/13/19 09:00 02/12/19 08:59 01/18/19 08:47 Armond May MD Jan 19, 2019 08:41
[2019-01-19] MEDS: Aspirin EC 81mg tab ORAL SCH (08:50)
[2019-01-19] MEDS: Docusate 100mg cap ORAL SCH (08:50)
[2019-01-19] MEDS: Ascorbic Acid 500mg tab ORAL SCH ×2 (08:51→17:17)
[2019-01-19] MEDS: Zinc Sulfate 220mg cap ORAL SCH (08:51)
[2019-01-19] MEDS: metFORMIN 500mg tab ORAL SCH ×2 (08:51→17:17)
[2019-01-19] MEDS: Metoprolol Succinate XL 25mg tab ORAL SCH (08:52)
[2019-01-19] MEDS: Lactulose 20gm/30ml UDC ORAL SCH (08:52)
[2019-01-19] MEDS: Heparin 5000 units/ml inj SUBQ SCH ×2 (09:18→21:01)
[2019-01-19 09:29] LABS: ANION GAP 10 mmol/L (5-15); BLOOD UREA NITROGEN 23 mg/dL (7-18); CALCIUM 8.9 MG/DL (8.5-10.1); CARBON DIOXIDE 24 MMOL/L (21-32); CHLORIDE 104 MMOL/L (98-107); CREATININE 0.3 MG/DL (0.55-1.30); POTASSIUM 4.9 MMOL/L (3.5-5.1); SODIUM 138 MMOL/L (136-145)
[2019-01-19 09:31] LABS: BASOPHILS % (AUTO) 1.1 % (0.0-2.0); EOSINOPHILS % (AUTO) 3.7 % (0.0-3.0); HEMATOCRIT 37.8 % (42.0-52.0); HEMOGLOBIN 11.6 G/DL (14.2-18.0); LYMPHOCYTES % (AUTO) 17.9 % (20.0-45.0); MEAN CORPUSCULAR VOLUME 85 FL (80-99); MONOCYTES % (AUTO) 8.4 % (1.0-10.0); PLATELET COUNT 195 K/UL (150-450); RED BLOOD COUNT 4.45 M/UL (4.70-6.10); RED CELL DISTRIBUTION WIDTH 16.4 % (11.6-14.8); WHITE BLOOD COUNT 9.6 K/UL (4.8-10.8)
--- NOTE | 2019-01-19 09:57 | General Progress Note ---
Assessment/Plan Problem List: (1) Chronic pain ICD Codes: G89.29 - Other chronic pain SNOMED: 12116729 Qualifiers: Qualified Codes: G89.4 - Chronic pain syndrome (2) UTI due to extended-spectrum beta lactamase (ESBL) producing Escherichia coli ICD Codes: N39.0 - Urinary tract infection, site not specified; B96.29 - Other Escherichia coli [E. coli] as the cause of diseases classified elsewhere; Z16.12 - Extended spectrum beta lactamase (ESBL) resistance SNOMED: 098586047, 807923080 (3) Diabetes mellitus ICD Codes: E11.9 - Type 2 diabetes mellitus without complications SNOMED: 55215043 (4) Limited mobility in bed SNOMED: 417072704 (5) Sepsis ICD Codes: A41.9 - Sepsis, unspecified organism SNOMED: 00937693 (6) Paraplegia ICD Codes: G82.20 - Paraplegia, unspecified SNOMED: 12079665 Status: stable, progressing Assessment/Plan: pt diet abx cbc bmp am dc if clear Subjective Constitutional: Reports: weakness Allergies: Coded Allergies: CIPROFLOXACIN (Verified Allergy, Unknown, 06/14/18) HALOPERIDOL (Verified Allergy, Unknown, 06/14/18) POLYETHYLENE GLYCOL 3350 (Verified Allergy, Unknown, 01/16/19) per patient, makes constipation RISPERIDONE (Verified Allergy, Unknown, 06/14/18) SENNA (Verified Allergy, Unknown, 06/14/18) All Systems: reviewed and negative except above Subjective o2nc sleepy calm Objective Last 24 Hour Vital Signs Date Time Temp Pulse Resp B/P (MAP) Pulse Ox O2 Delivery O2 Flow Rate FiO2 01/19/19 08:52 82 117/63 01/19/19 08:00 97.9 82 22 117/63 (81) 100 01/19/19 06:50 78 16 98 Nasal Cannula 2.0 28 01/19/19 06:50 98 Nasal Cannula 2.0 28 01/19/19 00:00 97.7 100 20 100/69 (79) 01/18/19 21:00 Nasal Cannula 2.0 01/18/19 20:00 97.1 77 18 137/89 (105) 100 01/18/19 19:44 74 18 96 Nasal Cannula 2.0 28 01/18/19 19:44 98 Nasal Cannula 2.0 28 01/18/19 12:00 97.2 72 20 144/84 (104) 99 Intake and Output 01/18/19 01/19/19 18:59 06:59 Intake Total 960 ml 840 ml Output Total 3000 ml 1300 ml Balance -2040 ml -460 ml Intake Oral 960 ml Other 840 ml Output Urine Total 3000 ml 1300 ml Laboratory Tests 01/19/19 08:55: White Blood Count 9.6, Red Blood Count 4.45L, Hemoglobin 11.6L, Hematocrit 37.8L , Mean Corpuscular Volume 85, Mean Corpuscular Hemoglobin 26.0L, Mean Corpuscular Hemoglobin Concent 30.6L, Red Cell Distribution Width 16.4H, Platelet Count 195, Mean Platelet Volume 5.1L, Neutrophils (%) (Auto) 69.0, Lymphocytes (%) (Auto) 17.9L, Monocytes (%) (Auto) 8.4, Eosinophils (%) (Auto) 3.7H, Basophils (%) (Auto) 1.1, Sodium Level [Pending], Potassium Level [Pending ], Chloride Level [Pending], Carbon Dioxide Level [Pending], Blood Urea Nitrogen [Pending], Creatinine [Pending], Estimat Glomerular Filtration Rate [ Pending], Glucose Level [Pending], Calcium Level [Pending] Height (Feet): 5 Height (Inches): 2.00 Weight (Pounds): 187 General Appearance: lethargic EENT: normal ENT inspection Neck: normal alignment Cardiovascular: normal peripheral pulses, normal rate, regular rhythm Respiratory/Chest: chest wall non-tender, lungs clear, normal breath sounds Abdomen: normal bowel sounds, non tender, soft Extremities: normal inspection Edema: no edema noted Arm (L), no edema noted Arm (R), no edema noted Leg (L), no edema noted Leg (R), no edema noted Pedal (L), no edema noted Pedal (R), no edema noted Generalized Neurologic: motor weakness Skin: normal pigmentation, warm/dry Srini Cox DO Jan 19, 2019 09:57
[2019-01-19] MEDS: Fleet's Enema 133ml RECTAL PRN (10:00)
--- NOTE | 2019-01-19 10:00 | NUR ---
NURSE NOTES: RECEIVE PHONE CALL FROM DR BROOKS. PER DR BROOKS, DR SANTOS ENTERED ORDER FOR NEW ANTIBIOTIC. ORDER NOTED.
--- NOTE | 2019-01-19 11:20 | Pulmonology Progress Note ---
Assessment/Plan Assessment/Plan ASSESSMENT UTI with Klebsiella pneumonia ESBL and Pseudomonas MDR Diabetes mellitus Spina bifida Paraplegia Chronic intractable back pain Suprapubic catheter PLAN OF CARE MS floor gentle IVF abx as per ID BCX NGTD, UCX + Klebsiella ESBL, Pseudomonas MDR suprapubic catheter care pain management BS management with SSI, [id number] home medications resumed DVT and GI prophylaxis O2 HHN PRN bowel regimen supportive care case discussed and evaluated by supervising physician Subjective Allergies: Coded Allergies: CIPROFLOXACIN (Verified Allergy, Unknown, 06/14/18) HALOPERIDOL (Verified Allergy, Unknown, 06/14/18) POLYETHYLENE GLYCOL 3350 (Verified Allergy, Unknown, 01/16/19) per patient, makes constipation RISPERIDONE (Verified Allergy, Unknown, 06/14/18) SENNA (Verified Allergy, Unknown, 06/14/18) Subjective remains afebrile, no leucocytosis on abx Objective Last 24 Hour Vital Signs Date Time Temp Pulse Resp B/P (MAP) Pulse Ox O2 Delivery O2 Flow Rate FiO2 01/19/19 08:52 82 117/63 01/19/19 08:00 97.9 82 22 117/63 (81) 100 01/19/19 06:50 78 16 98 Nasal Cannula 2.0 28 01/19/19 06:50 98 Nasal Cannula 2.0 28 01/19/19 00:00 97.7 100 20 100/69 (79) 01/18/19 21:00 Nasal Cannula 2.0 01/18/19 20:00 97.1 77 18 137/89 (105) 100 01/18/19 19:44 74 18 96 Nasal Cannula 2.0 28 01/18/19 19:44 98 Nasal Cannula 2.0 28 01/18/19 12:00 97.2 72 20 144/84 (104) 99 Intake and Output 01/18/19 01/19/19 18:59 06:59 Intake Total 960 ml 840 ml Output Total 3000 ml 1300 ml Balance -2040 ml -460 ml Intake Oral 960 ml Other 840 ml Output Urine Total 3000 ml 1300 ml General Appearance: no acute distress, other - awake, alert, responsive, slightly irritable obese male HEENT: normocephalic, atraumatic, anicteric, mucous membranes moist Respiratory/Chest: lungs clear, no respiratory distress, no accessory muscle use Cardiovascular: normal peripheral pulses, normal rate Abdomen: normal bowel sounds, soft, non tender - obese Genitourinary: other - s/pubic catheter Extremities: no edema, pedal pulses normal Neurologic/Psychiatric: abnormal gait - bedridden , alert, oriented x 3, responsive, other - paraplegia Musculoskeletal: atrophy - BLE Laboratory Tests 01/19/19 08:55: White Blood Count 9.6, Red Blood Count 4.45L, Hemoglobin 11.6L, Hematocrit 37.8L , Mean Corpuscular Volume 85, Mean Corpuscular Hemoglobin 26.0L, Mean Corpuscular Hemoglobin Concent 30.6L, Red Cell Distribution Width 16.4H, Platelet Count 195, Mean Platelet Volume 5.1L, Neutrophils (%) (Auto) 69.0, Lymphocytes (%) (Auto) 17.9L, Monocytes (%) (Auto) 8.4, Eosinophils (%) (Auto) 3.7H, Basophils (%) (Auto) 1.1, Sodium Level 138, Potassium Level 4.9, Chloride Level 104, Carbon Dioxide Level 24, Anion Gap 10, Blood Urea Nitrogen 23H, Creatinine 0.3L, Estimat Glomerular Filtration Rate > 60, Glucose Level 213H, Calcium Level 8.9 Current Medications Medications (Trade) Dose Ordered Sig/Trevin Route PRN Reason Start Time Stop Time Status Last Admin Dose Admin Acetaminophen (Tylenol) 650 mg Q4H PRN ORAL Mild Pain/Temp > 100.5 01/13/19 08:00 02/12/19 07:59 Acetaminophen (Tylenol) 650 mg Q6H PRN ORAL Temp > 100 01/13/19 08:00 02/12/19 07:59 Ascorbic Acid (Vitamin C) 500 mg TWICE A DAY ORAL 01/13/19 09:00 02/12/19 08:59 01/19/19 08:51 Aspirin (Ecotrin) 81 mg DAILY ORAL 01/13/19 09:00 02/12/19 08:59 01/19/19 08:50 Atorvastatin Calcium (Lipitor) 40 mg BEDTIME ORAL 01/13/19 21:00 02/12/19 20:59 01/18/19 20:54 Baclofen (Lioresal) 10 mg THREE TIMES A DAY PRN ORAL muscle spasm 01/14/19 09:15 02/13/19 09:14 01/15/19 12:53 Ceftazidime 2 gm/ Dextrose 110 ml @ 220 mls/hr Q8HR IV 01/19/19 14:00 01/26/19 13:59 Clonidine HCl (Catapres TTS-1) 1 patch QWEEK TDERMAL 01/16/19 09:00 02/15/19 08:59 01/16/19 11:55 Dextrose (Dextrose 50%) 25 ml Q30M PRN IV Hypoglycemia 01/13/19 08:30 02/12/19 08:29 Dextrose (Dextrose 50%) 50 ml Q30M PRN IV Hypoglycemia 01/13/19 08:30 02/12/19 08:29 Dextrose/Sodium Chloride 1,000 ml @ 60 mls/hr [id number] IV 01/13/19 07:45 02/12/19 07:44 01/18/19 21:05 Diphenhydramine HCl (Benadryl) 25 mg HSPRN PRN ORAL for insomnia , itching 01/13/19 08:00 02/12/19 07:59 01/19/19 01:12 Docusate Sodium (Colace) 100 mg DAILY ORAL 01/13/19 09:00 02/12/19 08:59 01/19/19 08:50 Famotidine (Pepcid) 20 mg BID ORAL 01/13/19 09:00 02/12/19 08:59 01/19/19 08:51 Fluphenazine HCl (Prolixin) 5 mg TWICE A DAY ORAL 01/13/19 10:15 02/12/19 10:14 01/19/19 08:51 Gabapentin (Neurontin) 200 mg TID ORAL 01/14/19 13:00 02/12/19 08:59 01/19/19 08:51 Heparin Sodium (Porcine) (Heparin 5000 units/ml) 5,000 units EVERY 12 HOURS SUBQ 01/13/19 21:00 02/12/19 20:59 01/19/19 09:18 Ibuprofen (Motrin) 600 mg Q6H PRN ORAL For Pain 01/13/19 08:00 02/12/19 07:59 01/13/19 14:36 Insulin Aspart (NovoLOG) BEFORE MEALS AND HS SUBQ 01/13/19 11:30 02/12/19 11:29 01/19/19 06:30 Insulin Aspart (NovoLOG) 8 units NOVOTIAC SUBQ 01/18/19 11:50 02/17/19 11:49 01/19/19 07:10 Insulin Detemir (Levemir) 18 units BID SUBQ 01/18/19 09:00 02/12/19 20:59 01/18/19 21:56 Lactulose (Cephulac) 30 gm DAILY ORAL 01/18/19 11:00 02/14/19 12:59 01/19/19 08:52 Lactulose (Cephulac) 30 gm DAILYPRN PRN ORAL Constipation 01/17/19 13:30 02/16/19 13:29 Lorazepam (Ativan) 1 mg Q6H PRN ORAL For Anxiety 01/13/19 08:30 01/20/19 08:29 01/19/19 10:42 Magnesium Hydroxide (Mom) 30 ml DAILYPRN PRN ORAL Constipation 01/13/19 08:30 02/12/19 08:29 Meropenem 1 gm/ Sodium Chloride 55 ml @ 110 mls/hr Q8HR IVPB 01/18/19 14:00 01/23/19 13:59 01/19/19 05:29 Metformin HCl (Glucophage) 500 mg TWICE A DAY ORAL 01/13/19 09:00 02/12/19 08:59 01/19/19 08:51 Methadone HCl (Methadone HCl) 5 mg TWICE A DAY ORAL 01/13/19 18:00 01/20/19 08:43 01/19/19 08:51 Metoprolol Succinate (Toprol XL) 25 mg DAILY ORAL 01/13/19 09:00 02/12/19 08:59 01/19/19 08:52 Morphine Sulfate (Morphine Sulfate) 4 mg Q6H PRN IVP severe pain 01/14/19 09:15 01/21/19 09:14 01/19/19 06:26 Nateglinide (Starlix) 120 mg TIAC ORAL 01/17/19 16:30 02/16/19 16:29 01/19/19 06:12 Ondansetron HCl (Zofran) 4 mg Q4H PRN IVP Nausea & Vomiting 01/13/19 08:00 02/12/19 07:59 01/16/19 18:21 Oxycodone/ Acetaminophen (Percocet 10/325) 1 tab Q4H PRN ORAL moderate pain 01/14/19 09:15 01/21/19 09:14 01/19/19 08:52 Simethicone (Mylicon) 80 mg THREE TIMES A DAY PRN ORAL Abdominal cramps 01/13/19 08:00 02/12/19 07:59 Sodium Phosphate (Fleet's Sodium Phosl Enema) 133 ml DAILYPRN PRN RECTAL Constipation 01/15/19 16:00 02/14/19 15:59 01/19/19 10:00 Trazodone HCl (Desyrel) 50 mg QHS PRN ORAL Insomnia 01/13/19 08:00 02/12/19 07:59 01/18/19 22:32 Zinc Sulfate (Zinc Sulfate) 220 mg DAILY ORAL 01/13/19 09:00 02/12/19 08:59 01/19/19 08:51 Claudia Linda OCCUP[employer] 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
[2019-01-19 12:00] VITALS: BP 106/67
--- NOTE | 2019-01-19 12:56 | General Progress Note ---
Assessment/Plan Problem List: (1) Uncontrolled diabetes mellitus ICD Codes: E11.65 - Type 2 diabetes mellitus with hyperglycemia SNOMED: 36558953, 308727350 (2) Abnormal urogenital findings ICD Codes: R89.9 - Unspecified abnormal finding in specimens from other organs , systems and tissues SNOMED: 325631763, 676921290 (3) UTI due to extended-spectrum beta lactamase (ESBL) producing Escherichia coli ICD Codes: N39.0 - Urinary tract infection, site not specified; B96.29 - Other Escherichia coli [E. coli] as the cause of diseases classified elsewhere; Z16.12 - Extended spectrum beta lactamase (ESBL) resistance SNOMED: 696355990, 722905157 Status: stable, progressing Assessment/Plan: continue Levemir 18 units bid continue Novolog 8 units ac tid continue NISS ac tid continue Starlix 120 mg ac tid continue Metformin 500 mg bid Subjective Allergies: Coded Allergies: CIPROFLOXACIN (Verified Allergy, Unknown, 06/14/18) HALOPERIDOL (Verified Allergy, Unknown, 06/14/18) POLYETHYLENE GLYCOL 3350 (Verified Allergy, Unknown, 01/16/19) per patient, makes constipation RISPERIDONE (Verified Allergy, Unknown, 06/14/18) SENNA (Verified Allergy, Unknown, 06/14/18) All Systems: reviewed and negative except above Subjective events noted glycemic control improved after mealtime insulin added and Levemir dosage increased Item Value Date Time Bedside Blood Glucose 157 mg/dl H 01/19/19 1211 Bedside Blood Glucose 198 mg/dl H 01/19/19 0710 Bedside Blood Glucose 198 mg/dl H 01/19/19 0653 Bedside Blood Glucose 250 mg/dl H 01/18/19 2156 Bedside Blood Glucose 196 mg/dl H 01/18/19 1727 Objective Last 24 Hour Vital Signs Date Time Temp Pulse Resp B/P (MAP) Pulse Ox O2 Delivery O2 Flow Rate FiO2 01/19/19 09:00 Nasal Cannula 2.0 01/19/19 08:52 82 117/63 01/19/19 08:00 97.9 82 22 117/63 (81) 100 01/19/19 06:50 78 16 98 Nasal Cannula 2.0 28 01/19/19 06:50 98 Nasal Cannula 2.0 28 01/19/19 00:00 97.7 100 20 100/69 (79) 01/18/19 21:00 Nasal Cannula 2.0 01/18/19 20:00 97.1 77 18 137/89 (105) 100 01/18/19 19:44 74 18 96 Nasal Cannula 2.0 28 01/18/19 19:44 98 Nasal Cannula 2.0 28 Intake and Output 01/18/19 01/19/19 18:59 06:59 Intake Total 960 ml 840 ml Output Total 3000 ml 1300 ml Balance -2040 ml -460 ml Intake Oral 960 ml Other 840 ml Output Urine Total 3000 ml 1300 ml Laboratory Tests 01/19/19 08:55: White Blood Count 9.6, Red Blood Count 4.45L, Hemoglobin 11.6L, Hematocrit 37.8L , Mean Corpuscular Volume 85, Mean Corpuscular Hemoglobin 26.0L, Mean Corpuscular Hemoglobin Concent 30.6L, Red Cell Distribution Width 16.4H, Platelet Count 195, Mean Platelet Volume 5.1L, Neutrophils (%) (Auto) 69.0, Lymphocytes (%) (Auto) 17.9L, Monocytes (%) (Auto) 8.4, Eosinophils (%) (Auto) 3.7H, Basophils (%) (Auto) 1.1, Sodium Level 138, Potassium Level 4.9, Chloride Level 104, Carbon Dioxide Level 24, Anion Gap 10, Blood Urea Nitrogen 23H, Creatinine 0.3L, Estimat Glomerular Filtration Rate > 60, Glucose Level 213H, Calcium Level 8.9 Height (Feet): 5 Height (Inches): 2.00 Weight (Pounds): 187 General Appearance: no apparent distress Neck: normal alignment Cardiovascular: normal rate Respiratory/Chest: lungs clear Abdomen: normal bowel sounds Edema: no edema noted Arm (L), no edema noted Arm (R), no edema noted Leg (L), no edema noted Leg (R), no edema noted Pedal (L), no edema noted Pedal (R), no edema noted Generalized Objective Current Medications Medications (Trade) Dose Ordered Sig/Trevin Route PRN Reason Start Time Stop Time Status Last Admin Dose Admin Acetaminophen (Tylenol) 650 mg Q4H PRN ORAL Mild Pain/Temp > 100.5 01/13/19 08:00 02/12/19 07:59 Acetaminophen (Tylenol) 650 mg Q6H PRN ORAL Temp > 100 11/10/19 08:00 02/12/19 07:59 Albuterol/ Ipratropium (Albuterol/ Ipratropium) 3 ml Q4HRT PRN HHN Shortness of Breath 01/19/19 11:15 01/24/19 11:14 Ascorbic Acid (Vitamin C) 500 mg TWICE A DAY ORAL 01/13/19 09:00 02/12/19 08:59 01/19/19 08:51 Aspirin (Ecotrin) 81 mg DAILY ORAL 01/13/19 09:00 02/12/19 08:59 01/19/19 08:50 Atorvastatin Calcium (Lipitor) 40 mg BEDTIME ORAL 01/13/19 21:00 02/12/19 20:59 01/18/19 20:54 Baclofen (Lioresal) 10 mg THREE TIMES A DAY PRN ORAL muscle spasm 01/14/19 09:15 02/13/19 09:14 01/19/19 12:05 Ceftazidime 2 gm/ Dextrose 110 ml @ 220 mls/hr Q8HR IV 01/19/19 14:00 01/26/19 13:59 Clonidine HCl (Catapres TTS-1) 1 patch QWEEK TDERMAL 01/16/19 09:00 02/15/19 08:59 01/16/19 11:55 Dextrose (Dextrose 50%) 25 ml Q30M PRN IV Hypoglycemia 01/13/19 08:30 02/12/19 08:29 Dextrose (Dextrose 50%) 50 ml Q30M PRN IV Hypoglycemia 01/13/19 08:30 02/12/19 08:29 Dextrose/Sodium Chloride 1,000 ml @ 60 mls/hr [id number] IV 01/13/19 07:45 02/12/19 07:44 01/18/19 21:05 Diphenhydramine HCl (Benadryl) 25 mg HSPRN PRN ORAL for insomnia , itching 01/13/19 08:00 02/12/19 07:59 01/19/19 01:12 Docusate Sodium (Colace) 100 mg DAILY ORAL 01/13/19 09:00 02/12/19 08:59 01/19/19 08:50 Famotidine (Pepcid) 20 mg BID ORAL 01/13/19 09:00 02/12/19 08:59 01/19/19 08:51 Fluphenazine HCl (Prolixin) 5 mg TWICE A DAY ORAL 01/13/19 10:15 02/12/19 10:14 01/19/19 08:51 Gabapentin (Neurontin) 200 mg TID ORAL 01/14/19 13:00 02/12/19 08:59 01/19/19 12:05 Heparin Sodium (Porcine) (Heparin 5000 units/ml) 5,000 units EVERY 12 HOURS SUBQ 01/13/19 21:00 02/12/19 20:59 01/19/19 09:18 Ibuprofen (Motrin) 600 mg Q6H PRN ORAL For Pain 01/13/19 08:00 02/12/19 07:59 01/13/19 14:36 Insulin Aspart (NovoLOG) BEFORE MEALS AND HS SUBQ 01/13/19 11:30 02/12/19 11:29 01/19/19 12:11 Insulin Aspart (NovoLOG) 8 units NOVOTIAC SUBQ 01/18/19 11:50 02/17/19 11:49 01/19/19 07:10 Insulin Detemir (Levemir) 18 units BID SUBQ 01/18/19 09:00 02/12/19 20:59 01/18/19 21:56 Lactulose (Cephulac) 30 gm DAILY ORAL 01/18/19 11:00 02/14/19 12:59 01/19/19 08:52 Lactulose (Cephulac) 30 gm DAILYPRN PRN ORAL Constipation 01/17/19 13:30 02/16/19 13:29 Lorazepam (Ativan) 1 mg Q6H PRN ORAL For Anxiety 01/19/19 14:30 01/26/19 14:29 Magnesium Hydroxide (Mom) 30 ml DAILYPRN PRN ORAL Constipation 01/13/19 08:30 02/12/19 08:29 Meropenem 1 gm/ Sodium Chloride 55 ml @ 110 mls/hr Q8HR IVPB 01/18/19 14:00 01/23/19 13:59 01/19/19 05:29 Metformin HCl (Glucophage) 500 mg TWICE A DAY ORAL 01/13/19 09:00 02/12/19 08:59 01/19/19 08:51 Methadone HCl (Methadone HCl) 5 mg TWICE A DAY ORAL 01/19/19 18:00 01/26/19 17:59 Metoprolol Succinate (Toprol XL) 25 mg DAILY ORAL 01/13/19 09:00 02/12/19 08:59 01/19/19 08:52 Morphine Sulfate (Morphine Sulfate) 4 mg Q6H PRN IVP severe pain 01/14/19 09:15 01/21/19 09:14 01/19/19 12:23 Nateglinide (Starlix) 120 mg TIAC ORAL 01/17/19 16:30 02/16/19 16:29 01/19/19 12:05 Ondansetron HCl (Zofran) 4 mg Q4H PRN IVP Nausea & Vomiting 01/13/19 08:00 02/12/19 07:59 01/16/19 18:21 Oxycodone/ Acetaminophen (Percocet 10/325) 1 tab Q4H PRN ORAL moderate pain 01/14/19 09:15 01/21/19 09:14 01/19/19 08:52 Simethicone (Mylicon) 80 mg THREE TIMES A DAY PRN ORAL Abdominal cramps 01/13/19 08:00 02/12/19 07:59 Sodium Phosphate (Fleet's Sodium Phosl Enema) 133 ml DAILYPRN PRN RECTAL Constipation 01/15/19 16:00 02/14/19 15:59 01/19/19 10:00 Trazodone HCl (Desyrel) 50 mg QHS PRN ORAL Insomnia 01/13/19 08:00 02/12/19 07:59 01/18/19 22:32 Zinc Sulfate (Zinc Sulfate) 220 mg DAILY ORAL 01/13/19 09:00 02/12/19 08:59 01/19/19 08:51 Arden Rossi MD Jan 19, 2019 12:56
[2019-01-19] MEDS: D5 1/2NS 1,000 ML IV SCH (13:59)
[2019-01-19] MEDS: CefTAZidime 2 GM in D5W 110 ML IV SCH ×3 (14:00→21:50)
--- NOTE | 2019-01-19 14:25 | Surgery Progress Note ---
Surgery Progress Note Subjective Symptoms: improved, tolerating diet, passing flatus, BM Objective Last 24 Hour Vital Signs Date Time Temp Pulse Resp B/P (MAP) Pulse Ox O2 Delivery O2 Flow Rate FiO2 01/19/19 09:00 Nasal Cannula 2.0 01/19/19 08:52 82 117/63 01/19/19 08:00 97.9 82 22 117/63 (81) 100 01/19/19 06:50 78 16 98 Nasal Cannula 2.0 28 01/19/19 06:50 98 Nasal Cannula 2.0 28 01/19/19 00:00 97.7 100 20 100/69 (79) 01/18/19 21:00 Nasal Cannula 2.0 01/18/19 20:00 97.1 77 18 137/89 (105) 100 01/18/19 19:44 74 18 96 Nasal Cannula 2.0 28 01/18/19 19:44 98 Nasal Cannula 2.0 28 I&O Intake and Output 01/18/19 01/19/19 19:00 07:00 Intake Total 960 ml 900 ml Output Total 3000 ml 1300 ml Balance -2040 ml -400 ml Intake Oral 960 ml IV Total 60 ml Other 840 ml Output Urine Total 3000 ml 1300 ml Cardiovascular: RSR Respiratory: clear, decreased breath sounds Abdomen: soft, distended, present bowel sounds Extremities: no cyanosis, other Laboratory Tests Test 01/19/19 08:55 White Blood Count 9.6 K/UL (4.8-10.8) Red Blood Count 4.45 M/UL (4.70-6.10) L Hemoglobin 11.6 G/DL (14.2-18.0) L Hematocrit 37.8 % (42.0-52.0) L Mean Corpuscular Volume 85 FL (80-99) Mean Corpuscular Hemoglobin 26.0 PG (27.0-31.0) L Mean Corpuscular Hemoglobin Concent 30.6 G/DL (32.0-36.0) L Red Cell Distribution Width 16.4 % (11.6-14.8) H Platelet Count 195 K/UL (150-450) Mean Platelet Volume 5.1 FL (6.5-10.1) L Neutrophils (%) (Auto) 69.0 % (45.0-75.0) Lymphocytes (%) (Auto) 17.9 % (20.0-45.0) L Monocytes (%) (Auto) 8.4 % (1.0-10.0) Eosinophils (%) (Auto) 3.7 % (0.0-3.0) H Basophils (%) (Auto) 1.1 % (0.0-2.0) Sodium Level 138 MMOL/L (136-145) Potassium Level 4.9 MMOL/L (3.5-5.1) Chloride Level 104 MMOL/L (98-107) Carbon Dioxide Level 24 MMOL/L (21-32) Anion Gap 10 mmol/L (5-15) Blood Urea Nitrogen 23 mg/dL (7-18) H Creatinine 0.3 MG/DL (0.55-1.30) L Estimat Glomerular Filtration Rate > 60 mL/min (>60) Glucose Level 213 MG/DL (74-106) H Calcium Level 8.9 MG/DL (8.5-10.1) Plan Problems: (1) Abdominal pain (2) Pelvic pain Assessment & Plan: Patient presented complaining of worsening pelvic and abdominal discomfort. States he says suprapubic catheter for some time now and recently it was pulled out at a different facility by a nurse and felt discomfort and has not felt better since. Initial bleeding but currently no bleeding. Catheter to Morales drainage bag with clear urine. Pain believed to be potentially related to bladder spasms as he says he had them diagnosed in the past and feels that similar. On examination obese male with no acute findings catheter in place stable with some pericatheter inflammation but very minimal. No drainage no abscess. Catheter functional and stable. No acute surgical intervention recommended. Will monitor follow with recommendations. KUB Bowel gas pattern is nonspecific. No mass, ectopic calcifications, or abnormal gas collections are identified. 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 Sacroiliac joints are fused. Bones are diffusely osteopenic. Impression: No acute findings suprapubic cath changed symptoms improved cath flushed and okay d/c [planning (3) Decubital ulcer Assessment & Plan: Patient presents with multiple decubitus ulcers. He has limited mobility in his upper and lower extremities and is fairly bedbound and wheelchair-bound. Uses most functionality through blowing breathing tube. He is identified to have a 1.5 cm x 1 cm x 3 mm stage III sacral decubitus ulcer forming. No drainage periwound intact no signs of acute active inflammation or or infectious process. Patient also identified to have a right issue ulcer 3 cm x 2 cm stage III decubitus ulcer formation with granulation tissue in the base periwound intact with some erythema no drainage no purulence no signs of active infection. Bilateral heels soft and leg and legs and feet with contractures. Treatment Plan: Wash sacral and right ischial wound daily with normal saline/soap and water. Apply Thera honey or hydrogel impregnated gauze followed by foam dressing. Change daily and as needed saturation turn every 2 hours offload pressure Foam dressings on heel for protection heel protective dressings followed by offloading heel pressures with pillow Monitor for dermatitis associated incontinence and ensure to clean as necessary. Air soft mattress okay for transitioning to wheelchair when necessary Nutritional supplementation DAILY ESTIMATED NEEDS: Needs based on Bed bound, paraplegia, wound 65kg adj 23-30 kcals/kg 9970-0834 total kcals 1.25-2 g protein/kg 81-130 g total protein 25-30 mL/kg 7154-8383 total fluid mLs NUTRITION DIAGNOSIS: 1) Increased protein needs r/t wound healing as evidenced by pt w/ full thickness wounds on sacrum and BL ischium. (CURRENT DIET: CCHO MED) PO DIET RECOMMENDATIONS: CCHO LOW W/ DOUBLE PROTEIN PORTIONS ADDITIONAL RECOMMENDATIONS: 1) Wound care: add JIM BID + VIT C 250mg BID + MVI x1 daily 2) Check A1C- 8.4 3) RE-calibrate bed scale for accurate CBW 4) Diet edu as able . Endy De La Rosa Jan 19, 2019 14:25
--- NOTE | 2019-01-19 15:30 | NUR ---
NURSE NOTES: PT REFUSED IV CEFTAZIDIME. PT STATED HE WILL NOT RESUME IV CEFTAZIDIME UNTIL HE GETS HIS BENADRYL. RN EDUCATED PT HIS PRN BENADRYL IS DUE AT BEDTIME NEEDED. RN LEFT MESSAGE FOR DR KNOX REGARDING BENADRYL ORDER.
--- NOTE | 2019-01-19 15:53 | NUR ---
NURSE NOTES: PT CONTINUOUSLY YELLS AND DEGRADES STAFF, YELLING RACIST COMMENTS AND SLURS. PT CALLING [facility] TO TRY TO GET TO [facility]. PT REQUESTS FOR RN TO CALL DR KNOX FOR DISCHARGE TO [facility]. RN MADE DR KNOX AWARE PT REFUSING TO GO TO [facility] AND PT'S REQUEST. PER DR KNOX, "CALL PSYCH AND TRANSFER TO [facility]".
[2019-01-19 16:00] VITALS: BP 99/53
--- NOTE | 2019-01-19 16:30 | Progress Note ---
DATE: 01/19/2019 SUBJECTIVE: This is a 43-year-old male patient with urinary tract infection. Apparently, the patient has increased agitation, mood lability, and decline in cognition below his baseline. That is why, his attending has requested daily psychiatric consultation at this time. The patient has some confusion and disorganized thought process. DIAGNOSIS: Paranoid schizophrenia with acute exacerbation. PLAN: Neurontin three times a day and Prolixin 5 mg twice a day. A 20 minutes of cognitive behavioral therapy to help him identify his automatic negative thoughts. Ativan 1 mg every 6 hours p.r.n. anxiety and agitation and 20 minutes of reality-based supportive psychotherapy. Chart reviewed. Discussed with staff. Seen and assessed at bedside. Rosalino Caraballo M.D. DR: TAL JOB#: [id number] CC:
[2019-01-19] MEDS: Levemir Flexpen SUBQ SCH (17:29)
--- NOTE | 2019-01-19 19:51 | NUR ---
HAND-OFF: Report given to Gunner EARLY RN. Addendum: 01/19/19 at 2010 by TORIN AMBRIZ RN RN HAND-OFF: Report given to Paola SEGURA RN.
[2019-01-19 20:00] VITALS: BP 117/75
--- NOTE | 2019-01-19 20:20 | NUR ---
NURSE NOTES: Pt received in bed asleep, IV fluids running, no c/o pain or signs of distress, suprapubic catheter draining yellow urine, will continue to monitor.
[2019-01-19] MEDS: Atorvastatin 80mg tab ORAL SCH (21:00)
[2019-01-20] VITALS: BP 102/74
[2019-01-20 04:00] VITALS: BP 104/66
[2019-01-20] MEDS: Meropenem 1 GM in NS 55 ML IVPB SCH ×3 (04:54→21:00)
[2019-01-20] MEDS: CefTAZidime 2 GM in D5W 110 ML IV SCH ×3 (05:32→22:02)
[2019-01-20] MEDS: NovoLOG Insulin Flexpen SUBQ SCH ×7 (05:41→20:59)
--- NOTE | 2019-01-20 05:45 | NUR ---
NURSE NOTES: Pt does not want his sacral dressing changed right now, OBED Chaves witness pt refusing at the moment. Pt only wanting to be fed his sandwhich at the bedside.
[2019-01-20] MEDS: Morphine Sulfate 4mg/ml Inj (IV USE ONLY) IVP PRN ×3 (05:59→18:06)
[2019-01-20] MEDS: D5 1/2NS 1,000 ML IV SCH (06:46)
--- NOTE | 2019-01-20 07:44 | NUR ---
HAND-OFF: Report given to OBED Nieves.
[2019-01-20 08:00] VITALS: BP 121/79
[2019-01-20] MEDS: Zinc Sulfate 220mg cap ORAL SCH (08:14)
[2019-01-20] MEDS: Lactulose 20gm/30ml UDC ORAL SCH (08:14)
[2019-01-20] MEDS: Aspirin EC 81mg tab ORAL SCH (08:15)
[2019-01-20] MEDS: metFORMIN 500mg tab ORAL SCH ×2 (08:15→17:26)
[2019-01-20] MEDS: Ascorbic Acid 500mg tab ORAL SCH ×2 (08:16→17:27)
[2019-01-20] MEDS: Metoprolol Succinate XL 25mg tab ORAL SCH (08:17)
[2019-01-20] MEDS: Docusate 100mg cap ORAL SCH (08:17)
[2019-01-20] MEDS: Levemir Flexpen SUBQ SCH ×2 (08:18→18:21)
[2019-01-20] MEDS: Heparin 5000 units/ml inj SUBQ SCH ×2 (08:19→20:58)
--- NOTE | 2019-01-20 08:20 | NUR ---
NURSE NOTES: received patient in bed, awake, complains of pain but IV pain medication is not due so given PO pain med. Patient is bedridden, oriented, unable to mobilize his bilateral lower extremities and minimal movement at bilateral hands. Patient has RAC IV access, receives D5 1/2 NS @ 60cc/hr, no sign of infiltration noted. On 2 L O2/min nasal cannula, no respiratory distress noted. Patient has a suprapubic catheter draining yellow urine to gravity, no sediment noted. Patient refused to let nurse hang blood collector bag on the bed, nurse received patient with urine bag on a basin, on the floor. Also, patient refused nurse to secure suprapubic tubing to his leg with anchor, saying: my urine has too many sediments and tubing taped to my leg can make it clog. Bed locked at the lowest position possible, call light is a mouthpiece secured to the bed side rail, as patient can move freely his head to the sides. Will continue to monitor patient and follow up with the plan of care.
[2019-01-20] MEDS ORDERED: Albuterol/Ipratropium 3ml neb ONE (08:27)
--- NOTE | 2019-01-20 08:45 | General Progress Note ---
Assessment/Plan Problem List: (1) Chronic pain ICD Codes: G89.29 - Other chronic pain SNOMED: 67540006 Qualifiers: Qualified Codes: G89.4 - Chronic pain syndrome (2) UTI due to extended-spectrum beta lactamase (ESBL) producing Escherichia coli ICD Codes: N39.0 - Urinary tract infection, site not specified; B96.29 - Other Escherichia coli [E. coli] as the cause of diseases classified elsewhere; Z16.12 - Extended spectrum beta lactamase (ESBL) resistance SNOMED: 209607523, 491555247 (3) Diabetes mellitus ICD Codes: E11.9 - Type 2 diabetes mellitus without complications SNOMED: 63517295 (4) Limited mobility in bed SNOMED: 312815140 (5) Sepsis ICD Codes: A41.9 - Sepsis, unspecified organism SNOMED: 63608536 (6) Paraplegia ICD Codes: G82.20 - Paraplegia, unspecified SNOMED: 94487464 Status: stable, progressing Assessment/Plan: pt diet abx cbc bmp am dc if clear Subjective Constitutional: Reports: weakness Allergies: Coded Allergies: CIPROFLOXACIN (Verified Allergy, Unknown, 06/14/18) HALOPERIDOL (Verified Allergy, Unknown, 06/14/18) POLYETHYLENE GLYCOL 3350 (Verified Allergy, Unknown, 01/16/19) per patient, makes constipation RISPERIDONE (Verified Allergy, Unknown, 06/14/18) SENNA (Verified Allergy, Unknown, 06/14/18) All Systems: reviewed and negative except above Subjective o2nc sleepy calm Objective Last 24 Hour Vital Signs Date Time Temp Pulse Resp B/P (MAP) Pulse Ox O2 Delivery O2 Flow Rate FiO2 01/20/19 08:17 73 121/79 01/20/19 04:00 97.6 73 20 104/66 (79) 94 01/20/19 00:00 97.8 65 20 102/74 (83) 95 01/19/19 21:00 Nasal Cannula 2.0 01/19/19 20:11 80 18 98 Nasal Cannula 2.0 28 01/19/19 20:11 98 Nasal Cannula 2.0 28 01/19/19 20:00 97.7 77 18 117/75 (89) 96 01/19/19 16:00 98.1 87 20 99/53 (68) 100 01/19/19 12:00 98.1 76 20 106/67 (80) 100 01/19/19 09:00 Nasal Cannula 2.0 01/19/19 08:52 82 117/63 Intake and Output 01/19/19 01/20/19 19:00 07:00 Intake Total 1940 ml 1110 ml Output Total 2000 ml 1650 ml Balance -60 ml -540 ml Intake Oral 1400 ml 360 ml IV Total 540 ml 750 ml Output Urine Total 2000 ml 1650 ml # Bowel Movements 2 Laboratory Tests 01/19/19 08:55: White Blood Count 9.6, Red Blood Count 4.45L, Hemoglobin 11.6L, Hematocrit 37.8L , Mean Corpuscular Volume 85, Mean Corpuscular Hemoglobin 26.0L, Mean Corpuscular Hemoglobin Concent 30.6L, Red Cell Distribution Width 16.4H, Platelet Count 195, Mean Platelet Volume 5.1L, Neutrophils (%) (Auto) 69.0, Lymphocytes (%) (Auto) 17.9L, Monocytes (%) (Auto) 8.4, Eosinophils (%) (Auto) 3.7H, Basophils (%) (Auto) 1.1, Sodium Level 138, Potassium Level 4.9, Chloride Level 104, Carbon Dioxide Level 24, Anion Gap 10, Blood Urea Nitrogen 23H, Creatinine 0.3L, Estimat Glomerular Filtration Rate > 60, Glucose Level 213H, Calcium Level 8.9 Height (Feet): 5 Height (Inches): 2.00 Weight (Pounds): 187 General Appearance: lethargic EENT: normal ENT inspection Neck: normal alignment Cardiovascular: normal peripheral pulses, normal rate, regular rhythm Respiratory/Chest: chest wall non-tender, lungs clear, normal breath sounds Abdomen: normal bowel sounds, non tender, soft Extremities: normal inspection Edema: no edema noted Arm (L), no edema noted Arm (R), no edema noted Leg (L), no edema noted Leg (R), no edema noted Pedal (L), no edema noted Pedal (R), no edema noted Generalized Neurologic: motor weakness Skin: normal pigmentation, warm/dry Srini Cox DO Jan 20, 2019 08:45
--- NOTE | 2019-01-20 10:47 | Pulmonology Progress Note ---
Assessment/Plan Assessment/Plan ASSESSMENT UTI with Klebsiella pneumonia ESBL and Pseudomonas MDR Diabetes mellitus Spina bifida Paraplegia Chronic intractable back pain Suprapubic catheter PLAN OF CARE MS floor gentle IVF abx as per ID BCX NGTD, UCX + Klebsiella ESBL, Pseudomonas MDR suprapubic catheter care pain management BS management with SSI, TgE3a-6.4 home medications resumed DVT and GI prophylaxis O2 HHN PRN bowel regimen supportive care DNR/DNI status case discussed and evaluated by supervising physician Subjective Allergies: Coded Allergies: CIPROFLOXACIN (Verified Allergy, Unknown, 06/14/18) HALOPERIDOL (Verified Allergy, Unknown, 06/14/18) POLYETHYLENE GLYCOL 3350 (Verified Allergy, Unknown, 01/16/19) per patient, makes constipation RISPERIDONE (Verified Allergy, Unknown, 06/14/18) SENNA (Verified Allergy, Unknown, 06/14/18) Subjective remains afebrile, no leucocytosis on abx Objective Last 24 Hour Vital Signs Date Time Temp Pulse Resp B/P (MAP) Pulse Ox O2 Delivery O2 Flow Rate FiO2 01/20/19 08:17 73 121/79 01/20/19 08:00 97.0 73 24 121/79 (93) 100 01/20/19 04:00 97.6 73 20 104/66 (79) 94 01/20/19 00:00 97.8 65 20 102/74 (83) 95 01/19/19 21:00 Nasal Cannula 2.0 01/19/19 20:11 80 18 98 Nasal Cannula 2.0 28 01/19/19 20:11 98 Nasal Cannula 2.0 28 01/19/19 20:00 97.7 77 18 117/75 (89) 96 01/19/19 16:00 98.1 87 20 99/53 (68) 100 01/19/19 12:00 98.1 76 20 106/67 (80) 100 Intake and Output 01/19/19 01/20/19 18:59 06:59 Intake Total 1940 ml 1170 ml Output Total 2000 ml 1650 ml Balance -60 ml -480 ml Intake Oral 1400 ml 360 ml IV Total 540 ml 810 ml Output Urine Total 2000 ml 1650 ml # Bowel Movements 2 Objective General Appearance: no acute distress, awake, alert, responsive, slightly irritable obese male HEENT: normocephalic, atraumatic, anicteric, mucous membranes moist Respiratory/Chest: lungs clear, no respiratory distress, no accessory muscle use Cardiovascular: normal peripheral pulses, normal rate Abdomen: normal bowel sounds, soft, non tender - obese Genitourinary: s/pubic catheter Extremities: no edema, pedal pulses normal Neurologic/Psychiatric: abnormal gait - bedridden , alert, oriented x 3, responsive, paraplegia Musculoskeletal: atrophy - BLE Current Medications Medications (Trade) Dose Ordered Sig/Trevin Route PRN Reason Start Time Stop Time Status Last Admin Dose Admin Acetaminophen (Tylenol) 650 mg Q4H PRN ORAL Mild Pain/Temp > 100.5 01/13/19 08:00 02/12/19 07:59 Acetaminophen (Tylenol) 650 mg Q6H PRN ORAL Temp > 100 01/13/19 08:00 02/12/19 07:59 Albuterol/ Ipratropium (Albuterol/ Ipratropium) 3 ml Q4HRT PRN HHN Shortness of Breath 01/19/19 11:15 01/24/19 11:14 Ascorbic Acid (Vitamin C) 500 mg TWICE A DAY ORAL 01/13/19 09:00 02/12/19 08:59 01/20/19 08:16 Aspirin (Ecotrin) 81 mg DAILY ORAL 01/13/19 09:00 02/12/19 08:59 01/20/19 08:15 Atorvastatin Calcium (Lipitor) 40 mg BEDTIME ORAL 01/13/19 21:00 02/12/19 20:59 01/19/19 21:00 Baclofen (Lioresal) 10 mg THREE TIMES A DAY PRN ORAL muscle spasm 01/14/19 09:15 02/13/19 09:14 01/19/19 12:05 Ceftazidime 2 gm/ Dextrose 110 ml @ 220 mls/hr Q8HR IV 01/19/19 14:00 01/26/19 13:59 01/20/19 05:32 Clonidine HCl (Catapres TTS-1) 1 patch QWEEK TDERMAL 01/16/19 09:00 02/15/19 08:59 01/16/19 11:55 Dextrose (Dextrose 50%) 25 ml Q30M PRN IV Hypoglycemia 01/13/19 08:30 02/12/19 08:29 Dextrose (Dextrose 50%) 50 ml Q30M PRN IV Hypoglycemia 01/13/19 08:30 02/12/19 08:29 Dextrose/Sodium Chloride 1,000 ml @ 60 mls/hr [id number] IV 01/13/19 07:45 02/12/19 07:44 01/20/19 06:46 Diphenhydramine HCl (Benadryl) 25 mg HSPRN PRN ORAL for insomnia , itching 01/13/19 08:00 02/12/19 07:59 01/19/19 21:10 Docusate Sodium (Colace) 100 mg DAILY ORAL 01/13/19 09:00 02/12/19 08:59 01/20/19 08:17 Famotidine (Pepcid) 20 mg BID ORAL 01/13/19 09:00 02/12/19 08:59 01/20/19 08:14 Fluphenazine HCl (Prolixin) 5 mg TWICE A DAY ORAL 01/13/19 10:15 02/12/19 10:14 01/20/19 08:15 Gabapentin (Neurontin) 200 mg TID ORAL 01/14/19 13:00 02/12/19 08:59 01/20/19 08:16 Heparin Sodium (Porcine) (Heparin 5000 units/ml) 5,000 units EVERY 12 HOURS SUBQ 01/13/19 21:00 02/12/19 20:59 01/20/19 08:19 Ibuprofen (Motrin) 600 mg Q6H PRN ORAL For Pain 01/13/19 08:00 02/12/19 07:59 01/13/19 14:36 Insulin Aspart (NovoLOG) BEFORE MEALS AND HS SUBQ 01/13/19 11:30 02/12/19 11:29 01/20/19 05:42 Insulin Aspart (NovoLOG) 8 units NOVOTIAC SUBQ 01/18/19 11:50 02/17/19 11:49 01/20/19 05:41 Insulin Detemir (Levemir) 18 units BID SUBQ 01/18/19 09:00 02/12/19 20:59 01/20/19 08:18 Lactulose (Cephulac) 30 gm DAILY ORAL 01/18/19 11:00 02/14/19 12:59 01/19/19 08:52 Lactulose (Cephulac) 30 gm DAILYPRN PRN ORAL Constipation 01/17/19 13:30 02/16/19 13:29 Lorazepam (Ativan) 1 mg Q6H PRN ORAL For Anxiety 01/19/19 14:30 01/26/19 14:29 01/19/19 17:16 Magnesium Hydroxide (Mom) 30 ml DAILYPRN PRN ORAL Constipation 01/13/19 08:30 02/12/19 08:29 Meropenem 1 gm/ Sodium Chloride 55 ml @ 110 mls/hr Q8HR IVPB 01/18/19 14:00 01/23/19 13:59 01/20/19 04:54 Metformin HCl (Glucophage) 500 mg TWICE A DAY ORAL 01/13/19 09:00 02/12/19 08:59 01/20/19 08:15 Methadone HCl (Methadone HCl) 5 mg TWICE A DAY ORAL 01/19/19 18:00 01/26/19 17:59 01/20/19 08:15 Metoprolol Succinate (Toprol XL) 25 mg DAILY ORAL 01/13/19 09:00 02/12/19 08:59 01/20/19 08:17 Morphine Sulfate (Morphine Sulfate) 4 mg Q6H PRN IVP severe pain 01/14/19 09:15 01/21/19 09:14 01/20/19 05:59 Nateglinide (Starlix) 120 mg TIAC ORAL 01/17/19 16:30 02/16/19 16:29 01/20/19 05:39 Ondansetron HCl (Zofran) 4 mg Q4H PRN IVP Nausea & Vomiting 01/13/19 08:00 02/12/19 07:59 01/16/19 18:21 Oxycodone/ Acetaminophen (Percocet 10/325) 1 tab Q4H PRN ORAL moderate pain 01/14/19 09:15 01/21/19 09:14 01/20/19 08:16 Simethicone (Mylicon) 80 mg THREE TIMES A DAY PRN ORAL Abdominal cramps 01/13/19 08:00 02/12/19 07:59 Sodium Phosphate (Fleet's Sodium Phosl Enema) 133 ml DAILYPRN PRN RECTAL Constipation 01/15/19 16:00 02/14/19 15:59 01/19/19 10:00 Trazodone HCl (Desyrel) 50 mg QHS PRN ORAL Insomnia 01/13/19 08:00 02/12/19 07:59 01/18/19 22:32 Zinc Sulfate (Zinc Sulfate) 220 mg DAILY ORAL 01/13/19 09:00 02/12/19 08:59 01/20/19 08:14 Claudia Linda NP Jan 20, 2019 10:47
--- NOTE | 2019-01-20 10:58 | Surgery Progress Note ---
Surgery Progress Note Subjective Additional Comments improved wants to make clear that his cath works better if placed lower which is fine Objective Last 24 Hour Vital Signs Date Time Temp Pulse Resp B/P (MAP) Pulse Ox O2 Delivery O2 Flow Rate FiO2 01/20/19 09:00 Nasal Cannula 2.0 01/20/19 08:46 97.6 01/20/19 08:17 73 121/79 01/20/19 08:00 97.0 73 24 121/79 (93) 100 01/20/19 04:00 97.6 73 20 104/66 (79) 94 01/20/19 00:00 97.8 65 20 102/74 (83) 95 01/19/19 21:00 Nasal Cannula 2.0 01/19/19 20:11 80 18 98 Nasal Cannula 2.0 28 01/19/19 20:11 98 Nasal Cannula 2.0 28 01/19/19 20:00 97.7 77 18 117/75 (89) 96 01/19/19 16:00 98.1 87 20 99/53 (68) 100 01/19/19 12:00 98.1 76 20 106/67 (80) 100 I&O Intake and Output 01/19/19 01/20/19 19:00 07:00 Intake Total 1940 ml 1110 ml Output Total 2000 ml 1650 ml Balance -60 ml -540 ml Intake Oral 1400 ml 360 ml IV Total 540 ml 750 ml Output Urine Total 2000 ml 1650 ml # Bowel Movements 2 Dressing: other Wound: other Drains: other Cardiovascular: RSR Respiratory: clear Abdomen: soft, present bowel sounds Extremities: no cyanosis, other Plan Problems: (1) Abdominal pain (2) Pelvic pain Assessment & Plan: Patient presented complaining of worsening pelvic and abdominal discomfort. States he says suprapubic catheter for some time now and recently it was pulled out at a different facility by a nurse and felt discomfort and has not felt better since. Initial bleeding but currently no bleeding. Catheter to Anderson drainage bag with clear urine. Pain believed to be potentially related to bladder spasms as he says he had them diagnosed in the past and feels that similar. On examination obese male with no acute findings catheter in place stable with some pericatheter inflammation but very minimal. No drainage no abscess. Catheter functional and stable. No acute surgical intervention recommended. Will monitor follow with recommendations. KUB Bowel gas pattern is nonspecific. No mass, ectopic calcifications, or abnormal gas collections are identified. 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 Sacroiliac joints are fused. Bones are diffusely osteopenic. Impression: No acute findings suprapubic cath changed symptoms improved cath flushed and okay d/c [planning okay to have anderson bag at ground level if desired by patient (3) Decubital ulcer Assessment & Plan: Patient presents with multiple decubitus ulcers. He has limited mobility in his upper and lower extremities and is fairly bedbound and wheelchair-bound. Uses most functionality through blowing breathing tube. He is identified to have a 1.5 cm x 1 cm x 3 mm stage III sacral decubitus ulcer forming. No drainage periwound intact no signs of acute active inflammation or or infectious process. Patient also identified to have a right issue ulcer 3 cm x 2 cm stage III decubitus ulcer formation with granulation tissue in the base periwound intact with some erythema no drainage no purulence no signs of active infection. Bilateral heels soft and leg and legs and feet with contractures. Treatment Plan: Wash sacral and right ischial wound daily with normal saline/soap and water. Apply Thera honey or hydrogel impregnated gauze followed by foam dressing. Change daily and as needed saturation turn every 2 hours offload pressure Foam dressings on heel for protection heel protective dressings followed by offloading heel pressures with pillow Monitor for dermatitis associated incontinence and ensure to clean as necessary. Air soft mattress okay for transitioning to wheelchair when necessary Nutritional supplementation DAILY ESTIMATED NEEDS: Needs based on Bed bound, paraplegia, wound 65kg adj 23-30 kcals/kg 2016-4137 total kcals 1.25-2 g protein/kg 81-130 g total protein 25-30 mL/kg 1322-3788 total fluid mLs NUTRITION DIAGNOSIS: 1) Increased protein needs r/t wound healing as evidenced by pt w/ full thickness wounds on sacrum and BL ischium. (CURRENT DIET: CCHO MED) PO DIET RECOMMENDATIONS: CCHO LOW W/ DOUBLE PROTEIN PORTIONS ADDITIONAL RECOMMENDATIONS: 1) Wound care: add JIM BID + VIT C 250mg BID + MVI x1 daily 2) Check A1C- 8.4 3) RE-calibrate bed scale for accurate CBW 4) Diet edu as able . Endy De La Rosa Jan 20, 2019 10:58
[2019-01-20] MEDS: Albuterol/Ipratropium 3ml neb HHN PRN ×2 (11:15→18:13)
[2019-01-20 11:54] VITALS: BP 144/72
--- NOTE | 2019-01-20 12:30 | Progress Note ---
DATE: 01/20/2019 SUBJECTIVE: The patient is a 43-year-old male patient, who has urinary tract infection. He also has altered mental status and some confusion as well. He has agitation, mood lability, decline in cognition below his baseline. That is why, his attending has requested daily psychiatric consultation. DIAGNOSIS: Paranoid schizophrenia with acute exacerbation. PLAN: Treat him with Neurontin 300 mg three times a day, Prolixin 5 mg twice a day. A 20 minutes of cognitive behavioral therapy to help him identify his automatic negative thoughts and help convert negative thoughts to more positive thoughts to reduce depression, anxiety, and mood lability. Also Ativan 1 mg every 6 hours p.r.n. anxiety and agitation. Chart reviewed. Discussed with staff. Seen and assessed at bedside. Rosalino Caraballo M.D. DR: MOLLY JOB#: [id number] CC:
--- NOTE | 2019-01-20 12:54 | General Progress Note ---
Assessment/Plan Assessment/Plan: (1) Paraplegia (2) H/o Thoracic and Lumbar fusion (3) Neuropathic pain Pt will be continued on Methadone, Percocet, Morphine, Neurontin and Baclofen D/w Dr. Horton and he concurred. Subjective Date patient seen: Jan 20, 2019 Time patient seen: 11:45 - am Allergies: Coded Allergies: CIPROFLOXACIN (Verified Allergy, Unknown, 06/14/18) HALOPERIDOL (Verified Allergy, Unknown, 06/14/18) POLYETHYLENE GLYCOL 3350 (Verified Allergy, Unknown, 01/16/19) per patient, makes constipation RISPERIDONE (Verified Allergy, Unknown, 06/14/18) SENNA (Verified Allergy, Unknown, 06/14/18) Subjective REVIEW OF SYSTEMS: Denies rash, fever, chills, sweating, dizziness, drowsiness, blurred vision, sore throat, or change in weight. No shortness of breath or chest pain. No nausea, vomiting, diarrhea. No dysuria. He is complaining of generalized body pain. SUBJECTIVE: Patient has been in bed and showing no signs of pain or distress. Pain has been tolerated on the Methadone and Morphine. Using the Percocet as needed. No new complaints at this time. Objective Last 24 Hour Vital Signs Date Time Temp Pulse Resp B/P (MAP) Pulse Ox O2 Delivery O2 Flow Rate FiO2 01/20/19 12:34 97.9 01/20/19 11:54 97.9 68 24 144/72 (96) 100 01/20/19 09:00 Nasal Cannula 2.0 01/20/19 08:46 97.6 01/20/19 08:17 73 121/79 01/20/19 08:00 97.0 73 24 121/79 (93) 100 01/20/19 04:00 97.6 73 20 104/66 (79) 94 01/20/19 00:00 97.8 65 20 102/74 (83) 95 01/19/19 21:00 Nasal Cannula 2.0 01/19/19 20:11 80 18 98 Nasal Cannula 2.0 28 01/19/19 20:11 98 Nasal Cannula 2.0 28 01/19/19 20:00 97.7 77 18 117/75 (89) 96 01/19/19 16:00 98.1 87 20 99/53 (68) 100 Intake and Output 01/19/19 01/20/19 18:59 06:59 Intake Total 1940 ml 1170 ml Output Total 2000 ml 1650 ml Balance -60 ml -480 ml Intake Oral 1400 ml 360 ml IV Total 540 ml 810 ml Output Urine Total 2000 ml 1650 ml # Bowel Movements 2 Height (Feet): 5 Height (Inches): 2.00 Weight (Pounds): 187 Objective GENERAL: Alert, awake, and oriented. LUNGS: Decreased breath sounds bilaterally. HEART: S1 and S2 Regular. ABDOMEN: Tenderness to palpation. EXTREMITIES: No cyanosis. No clubbing. NEURO: Motor 0/5 in all muscles b/l Larry Quiroz Jan 20, 2019 12:54
--- NOTE | 2019-01-20 15:25 | NUR ---
NURSE NOTES: changed sacral and right ischial wound dressing according to dr's order, area reddened and no secretion noted at wound sites. Patient refused to have his bilateral heels dressed for prevention of PU, and pillows under his legs to offload heels. Moreover, patient said he'll have his heels dressed and pillows positioned at a later time.
[2019-01-20 16:00] VITALS: BP 131/89
--- NOTE | 2019-01-20 18:35 | NUR ---
NURSE NOTES: patient was given sponge bath and groomed by CHESTER Fu. Patient accepted this nurse to apply bilateral heels Optifoam for prevention of PU and pillows under his legs. patient requested respiratory treatment, provided by RT Bar, no shortness of breath noted. Patient also complained of back pain, given IV pain medication as requested. Patient is calm, watching a movie on his tablet.
--- NOTE | 2019-01-20 19:24 | NUR ---
NURSE NOTES: Pt received in bed awake, still c/o pain, able to make needs known, call light within reach, suprapubic catheter draining yellow urine, head of bed elevated, will continue to monitor.
[2019-01-20 20:00] VITALS: BP 121/77
[2019-01-20] MEDS: Atorvastatin 80mg tab ORAL SCH (20:56)
[2019-01-21] VITALS: BP 118/79
[2019-01-21] MEDS: Morphine Sulfate 4mg/ml Inj (IV USE ONLY) IVP PRN ×4 (00:51→20:06)
[2019-01-21] MEDS: D5 1/2NS 1,000 ML IV SCH ×2 (00:52→15:45)
[2019-01-21] MEDS: TraZODone 50mg tab ORAL PRN (01:42)
[2019-01-21] MEDS: LORazepam 1mg tab ORAL PRN ×2 (02:21→19:42)
[2019-01-21 04:00] VITALS: BP 113/75
[2019-01-21] MEDS: Meropenem 1 GM in NS 55 ML IVPB SCH ×2 (05:00→14:20)
[2019-01-21] MEDS: CefTAZidime 2 GM in D5W 110 ML IV SCH ×2 (05:57→14:19)
[2019-01-21] MEDS: NovoLOG Insulin Flexpen SUBQ SCH ×6 (06:00→17:32)
--- NOTE | 2019-01-21 06:32 | General Progress Note ---
Assessment/Plan Problem List: (1) Uncontrolled diabetes mellitus ICD Codes: E11.65 - Type 2 diabetes mellitus with hyperglycemia SNOMED: 02966010, 705123877 (2) Abnormal urogenital findings ICD Codes: R89.9 - Unspecified abnormal finding in specimens from other organs , systems and tissues SNOMED: 568637428, 600816458 (3) UTI due to extended-spectrum beta lactamase (ESBL) producing Escherichia coli ICD Codes: N39.0 - Urinary tract infection, site not specified; B96.29 - Other Escherichia coli [E. coli] as the cause of diseases classified elsewhere; Z16.12 - Extended spectrum beta lactamase (ESBL) resistance SNOMED: 161499486, 390848212 Assessment/Plan: increase Levemir to 26 units bid increase Novolog to 12 units ac tid continue NISS ac tid continue Starlix 120 mg ac tid continue Metformin 500 mg bid Subjective Allergies: Coded Allergies: CIPROFLOXACIN (Verified Allergy, Unknown, 06/14/18) HALOPERIDOL (Verified Allergy, Unknown, 06/14/18) POLYETHYLENE GLYCOL 3350 (Verified Allergy, Unknown, 01/16/19) per patient, makes constipation RISPERIDONE (Verified Allergy, Unknown, 06/14/18) SENNA (Verified Allergy, Unknown, 06/14/18) All Systems: reviewed and negative except above Subjective events noted glucose values elevated Item Value Date Time Bedside Blood Glucose 304 mg/dl H 01/21/19 0613 Bedside Blood Glucose 372 mg/dl H 01/20/19 2100 Bedside Blood Glucose 317 mg/dl H 01/20/19 1821 Bedside Blood Glucose 346 mg/dl H 01/20/19 1214 Bedside Blood Glucose 182 mg/dl H 01/20/19 0818 Bedside Blood Glucose 182 mg/dl H 01/20/19 0612 Objective Last 24 Hour Vital Signs Date Time Temp Pulse Resp B/P (MAP) Pulse Ox O2 Delivery O2 Flow Rate FiO2 01/21/19 04:00 97.8 75 19 113/75 (88) 99 01/21/19 00:00 98.0 78 19 118/79 (92) 96 01/20/19 21:00 Nasal Cannula 2.0 01/20/19 20:00 98.2 81 19 121/77 (92) 95 01/20/19 19:50 97 Nasal Cannula 2.0 28 01/20/19 19:50 79 18 97 Nasal Cannula 2.0 28 01/20/19 18:36 98.0 01/20/19 18:17 98 Nasal Cannula 2.0 28 01/20/19 18:13 66 20 97 Nasal Cannula 2.0 64 20 97 01/20/19 16:00 98.0 64 19 131/89 (103) 99 01/20/19 12:34 97.9 01/20/19 11:54 97.9 68 24 144/72 (96) 100 01/20/19 11:15 66 18 99 Nasal Cannula 2.0 64 18 01/20/19 09:00 Nasal Cannula 2.0 01/20/19 08:46 97.6 01/20/19 08:17 73 121/79 01/20/19 08:00 97.0 73 24 121/79 (93) 100 Intake and Output 01/20/19 01/21/19 19:00 07:00 Intake Total 1565 ml 1550 ml Output Total 1500 ml 1550 ml Balance 65 ml 0 ml Intake Oral 800 ml 1000 ml IV Total 765 ml 550 ml Output Urine Total 1500 ml 1550 ml Height (Feet): 5 Height (Inches): 2.00 Weight (Pounds): 187 General Appearance: no apparent distress Neck: normal alignment Cardiovascular: normal rate Respiratory/Chest: decreased breath sounds Abdomen: normal bowel sounds Objective Current Medications Medications (Trade) Dose Ordered Sig/Trevin Route PRN Reason Start Time Stop Time Status Last Admin Dose Admin Acetaminophen (Tylenol) 650 mg Q4H PRN ORAL Mild Pain/Temp > 100.5 01/13/19 08:00 02/12/19 07:59 Acetaminophen (Tylenol) 650 mg Q6H PRN ORAL Temp > 100 01/13/19 08:00 02/12/19 07:59 Albuterol/ Ipratropium (Albuterol/ Ipratropium) 3 ml Q4HRT PRN HHN Shortness of Breath 01/19/19 11:15 01/24/19 11:14 01/20/19 11:15 Ascorbic Acid (Vitamin C) 500 mg TWICE A DAY ORAL 01/13/19 09:00 02/12/19 08:59 01/20/19 17:27 Aspirin (Ecotrin) 81 mg DAILY ORAL 01/13/19 09:00 02/12/19 08:59 01/20/19 08:15 Atorvastatin Calcium (Lipitor) 40 mg BEDTIME ORAL 01/13/19 21:00 02/12/19 20:59 01/20/19 20:56 Baclofen (Lioresal) 10 mg THREE TIMES A DAY PRN ORAL muscle spasm 01/14/19 09:15 02/13/19 09:14 01/19/19 12:05 Ceftazidime 2 gm/ Dextrose 110 ml @ 220 mls/hr Q8HR IV 01/19/19 14:00 01/26/19 13:59 01/21/19 05:57 Clonidine HCl (Catapres TTS-1) 1 patch QWEEK TDERMAL 01/16/19 09:00 02/15/19 08:59 01/16/19 11:55 Dextrose (Dextrose 50%) 25 ml Q30M PRN IV Hypoglycemia 01/13/19 08:30 02/12/19 08:29 Dextrose (Dextrose 50%) 50 ml Q30M PRN IV Hypoglycemia 01/13/19 08:30 02/12/19 08:29 Dextrose/Sodium Chloride 1,000 ml @ 60 mls/hr [id number] IV 01/13/19 07:45 02/12/19 07:44 01/21/19 00:52 Diphenhydramine HCl (Benadryl) 25 mg HSPRN PRN ORAL for insomnia , itching 01/13/19 08:00 02/12/19 07:59 01/19/19 21:10 Docusate Sodium (Colace) 100 mg DAILY ORAL 01/13/19 09:00 02/12/19 08:59 01/20/19 08:17 Famotidine (Pepcid) 20 mg BID ORAL 01/13/19 09:00 02/12/19 08:59 01/20/19 17:26 Fluphenazine HCl (Prolixin) 5 mg TWICE A DAY ORAL 01/13/19 10:15 02/12/19 10:14 01/20/19 17:26 Gabapentin (Neurontin) 200 mg TID ORAL 01/14/19 13:00 02/12/19 08:59 01/20/19 17:27 Heparin Sodium (Porcine) (Heparin 5000 units/ml) 5,000 units EVERY 12 HOURS SUBQ 01/13/19 21:00 02/12/19 20:59 01/20/19 20:58 Ibuprofen (Motrin) 600 mg Q6H PRN ORAL For Pain 01/13/19 08:00 02/12/19 07:59 01/13/19 14:36 Insulin Aspart (NovoLOG) BEFORE MEALS AND HS SUBQ 01/13/19 11:30 02/12/19 11:29 01/21/19 06:00 Insulin Aspart (NovoLOG) 8 units NOVOTIAC SUBQ 01/18/19 11:50 02/17/19 11:49 01/21/19 06:01 Insulin Detemir (Levemir) 18 units BID SUBQ 01/18/19 09:00 02/12/19 20:59 01/20/19 18:21 Lactulose (Cephulac) 30 gm DAILY ORAL 01/18/19 11:00 02/14/19 12:59 01/19/19 08:52 Lactulose (Cephulac) 30 gm DAILYPRN PRN ORAL Constipation 01/17/19 13:30 02/16/19 13:29 Lorazepam (Ativan) 1 mg Q6H PRN ORAL For Anxiety 01/19/19 14:30 01/26/19 14:29 01/21/19 02:21 Magnesium Hydroxide (Mom) 30 ml DAILYPRN PRN ORAL Constipation 01/13/19 08:30 02/12/19 08:29 Meropenem 1 gm/ Sodium Chloride 55 ml @ 110 mls/hr Q8HR IVPB 01/18/19 14:00 01/23/19 13:59 01/21/19 05:00 Metformin HCl (Glucophage) 500 mg TWICE A DAY ORAL 01/13/19 09:00 02/12/19 08:59 01/20/19 17:26 Methadone HCl (Methadone HCl) 5 mg TWICE A DAY ORAL 01/19/19 18:00 01/26/19 17:59 01/20/19 17:27 Metoprolol Succinate (Toprol XL) 25 mg DAILY ORAL 01/13/19 09:00 02/12/19 08:59 01/20/19 08:17 Morphine Sulfate (Morphine Sulfate) 4 mg Q6H PRN IVP severe pain 01/20/19 15:15 01/27/19 15:14 01/21/19 00:51 Nateglinide (Starlix) 120 mg TIAC ORAL 01/17/19 16:30 02/16/19 16:29 01/21/19 05:59 Ondansetron HCl (Zofran) 4 mg Q4H PRN IVP Nausea & Vomiting 01/13/19 08:00 02/12/19 07:59 01/16/19 18:21 Oxycodone/ Acetaminophen (Percocet 10/325) 1 tab Q4H PRN ORAL moderate pain 01/20/19 15:00 01/27/19 14:59 01/21/19 05:00 Simethicone (Mylicon) 80 mg THREE TIMES A DAY PRN ORAL Abdominal cramps 01/13/19 08:00 02/12/19 07:59 Sodium Phosphate (Fleet's Sodium Phosl Enema) 133 ml DAILYPRN PRN RECTAL Constipation 01/15/19 16:00 02/14/19 15:59 01/19/19 10:00 Trazodone HCl (Desyrel) 50 mg QHS PRN ORAL Insomnia 01/13/19 08:00 02/12/19 07:59 01/21/19 01:42 Zinc Sulfate (Zinc Sulfate) 220 mg DAILY ORAL 01/13/19 09:00 02/12/19 08:59 01/20/19 08:14 Arden Rossi MD Jan 21, 2019 06:32
--- NOTE | 2019-01-21 07:05 | NUR ---
HAND-OFF: Report given to OBED Chen.
--- NOTE | 2019-01-21 07:10 | NUR ---
NURSE NOTES: Received pt in bed, AAO x 4. No c/o of distress/pain, but still asking for pain medication stating that he wants to keep his pain down. IV on RAC 20g intact and patent, running D5 1/2 NS @ 60 ml/hr. FC intact draining by gravity. Side rails x 2. Bed in the lowest, locked, and alarm on. Call light within reach. Will continue to monitor
[2019-01-21 07:30] LABS: BASOPHILS % (AUTO) 0.9 % (0.0-2.0); EOSINOPHILS % (AUTO) 2.7 % (0.0-3.0); HEMATOCRIT 33.5 % (42.0-52.0); HEMOGLOBIN 11.3 G/DL (14.2-18.0); LYMPHOCYTES % (AUTO) 18.9 % (20.0-45.0); MEAN CORPUSCULAR VOLUME 83 FL (80-99); MONOCYTES % (AUTO) 8.5 % (1.0-10.0); PLATELET COUNT 192 K/UL (150-450); RED BLOOD COUNT 4.07 M/UL (4.70-6.10); RED CELL DISTRIBUTION WIDTH 14.6 % (11.6-14.8); WHITE BLOOD COUNT 8.2 K/UL (4.8-10.8)
[2019-01-21 08:00] VITALS: BP 134/93
[2019-01-21] MEDS: Lactulose 20gm/30ml UDC ORAL SCH ×2 (08:10→08:27)
[2019-01-21] MEDS: Zinc Sulfate 220mg cap ORAL SCH (08:11)
[2019-01-21] MEDS: metFORMIN 500mg tab ORAL SCH ×2 (08:11→17:27)
[2019-01-21] MEDS: Ascorbic Acid 500mg tab ORAL SCH ×2 (08:12→17:26)
[2019-01-21] MEDS: Docusate 100mg cap ORAL SCH (08:12)
[2019-01-21] MEDS: Aspirin EC 81mg tab ORAL SCH (08:12)
[2019-01-21] MEDS: Heparin 5000 units/ml inj SUBQ SCH ×2 (08:13→20:02)
[2019-01-21] MEDS: Levemir Flexpen SUBQ SCH ×2 (08:16→17:36)
[2019-01-21] MEDS: Metoprolol Succinate XL 25mg tab ORAL SCH (08:17)
--- NOTE | 2019-01-21 08:31 | General Progress Note ---
Assessment/Plan Assessment/Plan: (1) Paraplegia (2) H/o Thoracic and Lumbar fusion (3) Neuropathic pain Pt will be continued on Methadone, Percocet, Morphine, Neurontin and Baclofen D/w Dr. Horton and he concurred. Subjective Date patient seen: Jan 21, 2019 Time patient seen: 08:00 - am Allergies: Coded Allergies: CIPROFLOXACIN (Verified Allergy, Unknown, 06/14/18) HALOPERIDOL (Verified Allergy, Unknown, 06/14/18) POLYETHYLENE GLYCOL 3350 (Verified Allergy, Unknown, 01/16/19) per patient, makes constipation RISPERIDONE (Verified Allergy, Unknown, 06/14/18) SENNA (Verified Allergy, Unknown, 06/14/18) Subjective REVIEW OF SYSTEMS: Denies rash, fever, chills, sweating, dizziness, drowsiness, blurred vision, sore throat, or change in weight. No shortness of breath or chest pain. No nausea, vomiting, diarrhea. No dysuria. He is complaining of generalized body pain. SUBJECTIVE: Patient showing no signs of pain or distress. His pain has been tolerated on the Methadone and Morphine as needed. No new complaints at this time. Objective Last 24 Hour Vital Signs Date Time Temp Pulse Resp B/P (MAP) Pulse Ox O2 Delivery O2 Flow Rate FiO2 01/21/19 08:17 90 134/93 01/21/19 04:00 97.8 75 19 113/75 (88) 99 01/21/19 00:00 98.0 78 19 118/79 (92) 96 01/20/19 21:00 Nasal Cannula 2.0 01/20/19 20:00 98.2 81 19 121/77 (92) 95 01/20/19 19:50 97 Nasal Cannula 2.0 28 01/20/19 19:50 79 18 97 Nasal Cannula 2.0 28 01/20/19 18:36 98.0 01/20/19 18:17 98 Nasal Cannula 2.0 28 01/20/19 18:13 66 20 97 Nasal Cannula 2.0 64 20 97 01/20/19 16:00 98.0 64 19 131/89 (103) 99 01/20/19 12:34 97.9 01/20/19 11:54 97.9 68 24 144/72 (96) 100 01/20/19 11:15 66 18 99 Nasal Cannula 2.0 64 18 11/17/19 09:00 Nasal Cannula 2.0 01/20/19 08:46 97.6 Intake and Output 01/20/19 01/21/19 19:00 07:00 Intake Total 1565 ml 1550 ml Output Total 1500 ml 1550 ml Balance 65 ml 0 ml Intake Oral 800 ml 1000 ml IV Total 765 ml 550 ml Output Urine Total 1500 ml 1550 ml Laboratory Tests 01/21/19 06:20: White Blood Count 8.2, Red Blood Count 4.07L, Hemoglobin 11.3L, Hematocrit 33.5L , Mean Corpuscular Volume 83, Mean Corpuscular Hemoglobin 27.8, Mean Corpuscular Hemoglobin Concent 33.7, Red Cell Distribution Width 14.6, Platelet Count 192, Mean Platelet Volume 5.6L, Neutrophils (%) (Auto) 69.0, Lymphocytes ( %) (Auto) 18.9L, Monocytes (%) (Auto) 8.5, Eosinophils (%) (Auto) 2.7, Basophils (%) (Auto) 0.9, Sodium Level [Pending], Potassium Level [Pending], Chloride Level [Pending], Carbon Dioxide Level [Pending], Blood Urea Nitrogen [ Pending], Creatinine [Pending], Estimat Glomerular Filtration Rate [Pending], Glucose Level [Pending], Calcium Level [Pending] Height (Feet): 5 Height (Inches): 2.00 Weight (Pounds): 187 Objective GENERAL: Alert, awake, and oriented. LUNGS: Decreased breath sounds bilaterally. HEART: S1 and S2 Regular. ABDOMEN: Tenderness to palpation. EXTREMITIES: No cyanosis. No clubbing. NEURO: Motor 0/5 in all muscles b/l Larry Quiroz Jan 21, 2019 08:31
[2019-01-21 08:56] LABS: CHLORIDE 100 MMOL/L (98-107); SODIUM 134 MMOL/L (136-145)
[2019-01-21 09:05] LABS: ANION GAP 15 mmol/L (5-15); BLOOD UREA NITROGEN 27 mg/dL (7-18); CARBON DIOXIDE 19 MMOL/L (21-32); CREATININE 0.5 MG/DL (0.55-1.30); POTASSIUM 4.7 MMOL/L (3.5-5.1)
--- NOTE | 2019-01-21 09:23 | General Progress Note ---
Assessment/Plan Problem List: (1) Chronic pain ICD Codes: G89.29 - Other chronic pain SNOMED: 17070422 Qualifiers: Qualified Codes: G89.4 - Chronic pain syndrome (2) UTI due to extended-spectrum beta lactamase (ESBL) producing Escherichia coli ICD Codes: N39.0 - Urinary tract infection, site not specified; B96.29 - Other Escherichia coli [E. coli] as the cause of diseases classified elsewhere; Z16.12 - Extended spectrum beta lactamase (ESBL) resistance SNOMED: 240299399, 295961407 (3) Diabetes mellitus ICD Codes: E11.9 - Type 2 diabetes mellitus without complications SNOMED: 38471456 (4) Limited mobility in bed SNOMED: 090543545 (5) Sepsis ICD Codes: A41.9 - Sepsis, unspecified organism SNOMED: 19042233 (6) Paraplegia ICD Codes: G82.20 - Paraplegia, unspecified SNOMED: 19819813 Status: stable, progressing Assessment/Plan: pt diet abx cbc bmp am dc if clear Subjective Constitutional: Reports: weakness Allergies: Coded Allergies: CIPROFLOXACIN (Verified Allergy, Unknown, 06/14/18) HALOPERIDOL (Verified Allergy, Unknown, 06/14/18) POLYETHYLENE GLYCOL 3350 (Verified Allergy, Unknown, 01/16/19) per patient, makes constipation RISPERIDONE (Verified Allergy, Unknown, 06/14/18) SENNA (Verified Allergy, Unknown, 06/14/18) All Systems: reviewed and negative except above Subjective o2nc sleepy calm Objective Last 24 Hour Vital Signs Date Time Temp Pulse Resp B/P (MAP) Pulse Ox O2 Delivery O2 Flow Rate FiO2 01/21/19 09:05 97 Nasal Cannula 2.0 28 01/21/19 09:04 83 18 97 Nasal Cannula 2.0 28 01/21/19 08:17 90 134/93 01/21/19 08:00 97.8 70 20 134/93 (107) 99 01/21/19 04:00 97.8 75 19 113/75 (88) 99 01/21/19 00:00 98.0 78 19 118/79 (92) 96 01/20/19 21:00 Nasal Cannula 2.0 01/20/19 20:00 98.2 81 19 121/77 (92) 95 01/20/19 19:50 97 Nasal Cannula 2.0 28 01/20/19 19:50 79 18 97 Nasal Cannula 2.0 28 01/20/19 18:36 98.0 01/20/19 18:17 98 Nasal Cannula 2.0 28 01/20/19 18:13 66 20 97 Nasal Cannula 2.0 64 20 97 01/20/19 16:00 98.0 64 19 131/89 (103) 99 01/20/19 12:34 97.9 01/20/19 11:54 97.9 68 24 144/72 (96) 100 01/20/19 11:15 66 18 99 Nasal Cannula 2.0 64 18 Intake and Output 01/20/19 01/21/19 19:00 07:00 Intake Total 1565 ml 1550 ml Output Total 1500 ml 1550 ml Balance 65 ml 0 ml Intake Oral 800 ml 1000 ml IV Total 765 ml 550 ml Output Urine Total 1500 ml 1550 ml Laboratory Tests 01/21/19 06:20: White Blood Count 8.2, Red Blood Count 4.07L, Hemoglobin 11.3L, Hematocrit 33.5L , Mean Corpuscular Volume 83, Mean Corpuscular Hemoglobin 27.8, Mean Corpuscular Hemoglobin Concent 33.7, Red Cell Distribution Width 14.6, Platelet Count 192, Mean Platelet Volume 5.6L, Neutrophils (%) (Auto) 69.0, Lymphocytes ( %) (Auto) 18.9L, Monocytes (%) (Auto) 8.5, Eosinophils (%) (Auto) 2.7, Basophils (%) (Auto) 0.9, Sodium Level 134L, Potassium Level 4.7, Chloride Level 100, Carbon Dioxide Level 19L, Anion Gap 15, Blood Urea Nitrogen 27H, Creatinine 0.5L, Estimat Glomerular Filtration Rate > 60, Glucose Level 343H, Calcium Level 9.0 Height (Feet): 5 Height (Inches): 2.00 Weight (Pounds): 187 General Appearance: lethargic EENT: normal ENT inspection Neck: normal alignment Cardiovascular: normal peripheral pulses, normal rate, regular rhythm Respiratory/Chest: chest wall non-tender, lungs clear, normal breath sounds Abdomen: normal bowel sounds, non tender, soft Extremities: normal inspection Edema: no edema noted Arm (L), no edema noted Arm (R), no edema noted Leg (L), no edema noted Leg (R), no edema noted Pedal (L), no edema noted Pedal (R), no edema noted Generalized Neurologic: motor weakness Skin: normal pigmentation, warm/dry Srini Cox DO Jan 21, 2019 09:23
--- NOTE | 2019-01-21 10:15 | Progress Note ---
DATE: 01/21/2019 SUBJECTIVE: This is a 43-year-old male patient with urinary tract infection. The patient is a male patient, who continues to have some confusion, disorganized thought process, decline in cognition below his baseline. This patient has urinary tract infection, confusion, and mood lability, decline in cognition below his baseline. That is why, attending has requested daily psychiatric consultation. MENTAL STATUS EXAMINATION: This is a 43-year-old male. Appearance is disheveled. Attitude, irritable and agitated. Affect, guarded and restricted. Intellect poor. Mood, depressed and anxious. Motor activity, psychomotor agitation. Attention span is poor. Orientation x2. Speech is logical. Insight and judgment is poor. DIAGNOSIS: Paranoid schizophrenia with acute exacerbation. PLAN: Treat this patient with a medication regimen consisting of Ativan 1 mg every 6 hours p.r.n. anxiety and agitation, Neurontin 300 mg p.o. three times a day, Prolixin 5 mg twice a day, and provide him with 20 minutes of cognitive behavioral therapy to help him identify his automatic negative thoughts and help convert his negative thoughts to more positive thoughts to reduce depression, anxiety, and suicidality. Chart reviewed. Discussed with staff. Seen and assessed at bedside. The patient is encouraged to staff. Rosalino Caraballo M.D. DR: MOLLY JOB#: [id number] CC:
--- NOTE | 2019-01-21 10:17 | Infectious Diseases Prog Note ---
Assessment/Plan Assessment/Plan 43yo gentleman with PMH below presents with worsened catheter site pain with spasms. He states that these symptoms are consistent with his previous UTI. Denies fever, chills, nausea, vomiting. Last catheter changed early December. Afebrile Mild leukocytosis, SP Likely UTI pt reports monthly episodes UA WBC TNTC, nitrite positive UCx: ESBL Klebsiella, GNR DM paraplegia chronic pain labile affect Plan: Meropenem #4/5. Ceftazidime #3. can DC on two days of Zosyn IV. recommend nitrofurantoin 100mg QHS PPX with probiotics after completion of ertapenem. discussed plan with patient. pt understands risk of resistance development and C diff. 01/17 DC ertapenem #5. f/u Ucx bcx x2 aspiration precaution appreciate urology consult assistance Thank you for this consult. [facility] will continue to follow the patient with you. Subjective Allergies: Coded Allergies: CIPROFLOXACIN (Verified Allergy, Unknown, 06/14/18) HALOPERIDOL (Verified Allergy, Unknown, 06/14/18) POLYETHYLENE GLYCOL 3350 (Verified Allergy, Unknown, 01/16/19) per patient, makes constipation RISPERIDONE (Verified Allergy, Unknown, 06/14/18) SENNA (Verified Allergy, Unknown, 06/14/18) Subjective Afebrile. 2L NC. NAEON No leukocytosis Objective Vital Signs Last 24 Hour Vital Signs Date Time Temp Pulse Resp B/P (MAP) Pulse Ox O2 Delivery O2 Flow Rate FiO2 01/21/19 09:05 97 Nasal Cannula 2.0 28 01/21/19 09:04 83 18 97 Nasal Cannula 2.0 01/21/19 09:00 Nasal Cannula 2.0 01/21/19 08:17 90 134/93 01/21/19 08:00 97.8 70 20 134/93 (107) 99 01/21/19 04:00 97.8 75 19 113/75 (88) 99 01/21/19 00:00 98.0 78 19 118/79 (92) 96 01/20/19 21:00 Nasal Cannula 2.0 01/20/19 20:00 98.2 81 19 121/77 (92) 95 01/20/19 19:50 97 Nasal Cannula 2.0 01/20/19 19:50 79 18 97 Nasal Cannula 2.0 28 01/20/19 18:36 98.0 01/20/19 18:17 98 Nasal Cannula 2.0 28 01/20/19 18:13 66 20 97 Nasal Cannula 2.0 64 20 97 01/20/19 16:00 98.0 64 19 131/89 (103) 99 01/20/19 12:34 97.9 01/20/19 11:54 97.9 68 24 144/72 (96) 100 01/20/19 11:15 66 18 99 Nasal Cannula 2.0 64 18 Height (Feet): 5 Height (Inches): 2.00 Weight (Pounds): 187 Objective Gen: NAD. periodically shaking heads involuntarily HEENT: anicteric sclera CV: RRR Resp: Unlabored. no wheezes or crackles. Abd: soft. no TTP. suprapubic catheter site unable to be visualized due to pannus and pt reporting pain Ext: no LE edema Neuro: interactive Laboratory Tests Test 01/21/19 06:20 White Blood Count 8.2 K/UL (4.8-10.8) Red Blood Count 4.07 M/UL (4.70-6.10) L Hemoglobin 11.3 G/DL (14.2-18.0) L Hematocrit 33.5 % (42.0-52.0) L Mean Corpuscular Volume 83 FL (80-99) Mean Corpuscular Hemoglobin 27.8 PG (27.0-31.0) Mean Corpuscular Hemoglobin Concent 33.7 G/DL (32.0-36.0) Red Cell Distribution Width 14.6 % (11.6-14.8) Platelet Count 192 K/UL (150-450) Mean Platelet Volume 5.6 FL (6.5-10.1) L Neutrophils (%) (Auto) 69.0 % (45.0-75.0) Lymphocytes (%) (Auto) 18.9 % (20.0-45.0) L Monocytes (%) (Auto) 8.5 % (1.0-10.0) Eosinophils (%) (Auto) 2.7 % (0.0-3.0) Basophils (%) (Auto) 0.9 % (0.0-2.0) Sodium Level 134 MMOL/L (136-145) L Potassium Level 4.7 MMOL/L (3.5-5.1) Chloride Level 100 MMOL/L (98-107) Carbon Dioxide Level 19 MMOL/L (21-32) L Anion Gap 15 mmol/L (5-15) Blood Urea Nitrogen 27 mg/dL (7-18) H Creatinine 0.5 MG/DL (0.55-1.30) L Estimat Glomerular Filtration Rate > 60 mL/min (>60) Glucose Level 343 MG/DL (74-106) H Calcium Level 9.0 MG/DL (8.5-10.1) Current Medications Medications (Trade) Dose Ordered Sig/Trevin Route PRN Reason Start Time Stop Time Status Last Admin Dose Admin Acetaminophen (Tylenol) 650 mg Q4H PRN ORAL Mild Pain/Temp > 100.5 01/13/19 08:00 02/12/19 07:59 Acetaminophen (Tylenol) 650 mg Q6H PRN ORAL Temp > 100 01/13/19 08:00 02/12/19 07:59 Albuterol/ Ipratropium (Albuterol/ Ipratropium) 3 ml Q4HRT PRN HHN Shortness of Breath 01/19/19 11:15 01/24/19 11:14 01/20/19 11:15 Ascorbic Acid (Vitamin C) 500 mg TWICE A DAY ORAL 01/13/19 09:00 02/12/19 08:59 01/21/19 08:12 Aspirin (Ecotrin) 81 mg DAILY ORAL 01/13/19 09:00 02/12/19 08:59 01/21/19 08:12 Atorvastatin Calcium (Lipitor) 40 mg BEDTIME ORAL 01/13/19 21:00 02/12/19 20:59 01/20/19 20:56 Baclofen (Lioresal) 10 mg THREE TIMES A DAY PRN ORAL muscle spasm 01/14/19 09:15 02/13/19 09:14 01/19/19 12:05 Ceftazidime 2 gm/ Dextrose 110 ml @ 220 mls/hr Q8HR IV 01/19/19 14:00 01/26/19 13:59 01/21/19 05:57 Clonidine HCl (Catapres TTS-1) 1 patch QWEEK TDERMAL 01/16/19 09:00 02/15/19 08:59 01/16/19 11:55 Dextrose (Dextrose 50%) 25 ml Q30M PRN IV Hypoglycemia 01/13/19 08:30 02/12/19 08:29 Dextrose (Dextrose 50%) 50 ml Q30M PRN IV Hypoglycemia 01/13/19 08:30 02/12/19 08:29 Dextrose/Sodium Chloride 1,000 ml @ 60 mls/hr [id number] IV 01/13/19 07:45 02/12/19 07:44 01/21/19 00:52 Diphenhydramine HCl (Benadryl) 25 mg HSPRN PRN ORAL for insomnia , itching 01/13/19 08:00 02/12/19 07:59 01/19/19 21:10 Docusate Sodium (Colace) 100 mg DAILY ORAL 01/13/19 09:00 02/12/19 08:59 01/21/19 08:12 Famotidine (Pepcid) 20 mg BID ORAL 01/13/19 09:00 02/12/19 08:59 01/21/19 08:10 Fluphenazine HCl (Prolixin) 5 mg TWICE A DAY ORAL 01/13/19 10:15 02/12/19 10:14 01/21/19 08:11 Gabapentin (Neurontin) 200 mg TID ORAL 01/14/19 13:00 02/12/19 08:59 01/21/19 08:11 Heparin Sodium (Porcine) (Heparin 5000 units/ml) 5,000 units EVERY 12 HOURS SUBQ 01/13/19 21:00 02/12/19 20:59 01/21/19 08:13 Ibuprofen (Motrin) 600 mg Q6H PRN ORAL For Pain 01/13/19 08:00 02/12/19 07:59 01/13/19 14:36 Insulin Aspart (NovoLOG) BEFORE MEALS AND HS SUBQ 01/13/19 11:30 02/12/19 11:29 01/21/19 06:00 Insulin Aspart (NovoLOG) 12 units NOVOTIAC SUBQ 01/21/19 11:50 02/17/19 11:49 Insulin Detemir (Levemir) 26 units BID SUBQ 01/21/19 09:00 02/12/19 20:59 01/21/19 08:16 Lactulose (Cephulac) 30 gm DAILY ORAL 01/18/19 11:00 02/14/19 12:59 01/19/19 08:52 Lactulose (Cephulac) 30 gm DAILYPRN PRN ORAL Constipation 01/17/19 13:30 02/16/19 13:29 Lorazepam (Ativan) 1 mg Q6H PRN ORAL For Anxiety 01/19/19 14:30 01/26/19 14:29 01/21/19 02:21 Magnesium Hydroxide (Mom) 30 ml DAILYPRN PRN ORAL Constipation 01/13/19 08:30 02/12/19 08:29 Meropenem 1 gm/ Sodium Chloride 55 ml @ 110 mls/hr Q8HR IVPB 01/18/19 14:00 01/23/19 13:59 01/21/19 05:00 Metformin HCl (Glucophage) 500 mg TWICE A DAY ORAL 01/13/19 09:00 02/12/19 08:59 01/21/19 08:11 Methadone HCl (Methadone HCl) 5 mg TWICE A DAY ORAL 01/19/19 18:00 01/26/19 17:59 01/21/19 09:33 Metoprolol Succinate (Toprol XL) 25 mg DAILY ORAL 01/13/19 09:00 02/12/19 08:59 01/21/19 08:17 Morphine Sulfate (Morphine Sulfate) 4 mg Q6H PRN IVP severe pain 01/20/19 15:15 01/27/19 15:14 01/21/19 08:18 Nateglinide (Starlix) 120 mg TIAC ORAL 01/17/19 16:30 02/16/19 16:29 01/21/19 05:59 Ondansetron HCl (Zofran) 4 mg Q4H PRN IVP Nausea & Vomiting 01/13/19 08:00 02/12/19 07:59 01/16/19 18:21 Oxycodone/ Acetaminophen (Percocet 10/325) 1 tab Q4H PRN ORAL moderate pain 01/20/19 15:00 01/27/19 14:59 01/21/19 05:00 Simethicone (Mylicon) 80 mg THREE TIMES A DAY PRN ORAL Abdominal cramps 01/13/19 08:00 02/12/19 07:59 Sodium Phosphate (Fleet's Sodium Phosl Enema) 133 ml DAILYPRN PRN RECTAL Constipation 01/15/19 16:00 02/14/19 15:59 01/19/19 10:00 Trazodone HCl (Desyrel) 50 mg QHS PRN ORAL Insomnia 01/13/19 08:00 02/12/19 07:59 01/21/19 01:42 Zinc Sulfate (Zinc Sulfate) 220 mg DAILY ORAL 01/13/19 09:00 02/12/19 08:59 01/21/19 08:11 Dianna Dhaliwal MD Jan 21, 2019 10:17
--- NOTE | 2019-01-21 10:23 | Surgery Progress Note ---
Surgery Progress Note Subjective Additional Comments Patient seen and examined bedside. No acute events. Comfortable. No complaints. States he feels that over the years his superior catheter requires more flushing but does not want it scheduled. Requested to be flushed every few hours if necessary is his output decreases. Furthermore I discussed the patient about recommendations for placement of his Anderson bag and explained to him that if he prefers it to have a place on the floor as he feels that may be working better that is possible and okay. Patient states that he is ready for discharge but states that there are few facilities he does not want to go to and gave a list of facilities he does deferred to social sciences chair Objective Last 24 Hour Vital Signs Date Time Temp Pulse Resp B/P (MAP) Pulse Ox O2 Delivery O2 Flow Rate FiO2 01/21/19 09:05 97 Nasal Cannula 2.0 28 01/21/19 09:04 83 18 97 Nasal Cannula 2.0 28 01/21/19 09:00 Nasal Cannula 2.0 01/21/19 08:17 90 134/93 01/21/19 08:00 97.8 70 20 134/93 (107) 99 01/21/19 04:00 97.8 75 19 113/75 (88) 99 01/21/19 00:00 98.0 78 19 118/79 (92) 96 01/20/19 21:00 Nasal Cannula 2.0 01/20/19 20:00 98.2 81 19 121/77 (92) 95 01/20/19 19:50 97 Nasal Cannula 2.0 28 01/20/19 19:50 79 18 97 Nasal Cannula 2.0 28 01/20/19 18:36 98.0 01/20/19 18:17 98 Nasal Cannula 2.0 28 01/20/19 18:13 66 20 97 Nasal Cannula 2.0 64 20 97 01/20/19 16:00 98.0 64 19 131/89 (103) 99 01/20/19 12:34 97.9 01/20/19 11:54 97.9 68 24 144/72 (96) 100 01/20/19 11:15 66 18 99 Nasal Cannula 2.0 64 18 I&O Intake and Output 01/20/19 01/21/19 19:00 07:00 Intake Total 1565 ml 1550 ml Output Total 1500 ml 1550 ml Balance 65 ml 0 ml Intake Oral 800 ml 1000 ml IV Total 765 ml 550 ml Output Urine Total 1500 ml 1550 ml Dressing: dry Wound: clean Drains: other Cardiovascular: RSR Respiratory: clear Abdomen: soft, flat, non-tender, present bowel sounds Extremities: no cyanosis, other Laboratory Tests Test 01/21/19 06:20 White Blood Count 8.2 K/UL (4.8-10.8) Red Blood Count 4.07 M/UL (4.70-6.10) L Hemoglobin 11.3 G/DL (14.2-18.0) L Hematocrit 33.5 % (42.0-52.0) L Mean Corpuscular Volume 83 FL (80-99) Mean Corpuscular Hemoglobin 27.8 PG (27.0-31.0) Mean Corpuscular Hemoglobin Concent 33.7 G/DL (32.0-36.0) Red Cell Distribution Width 14.6 % (11.6-14.8) Platelet Count 192 K/UL (150-450) Mean Platelet Volume 5.6 FL (6.5-10.1) L Neutrophils (%) (Auto) 69.0 % (45.0-75.0) Lymphocytes (%) (Auto) 18.9 % (20.0-45.0) L Monocytes (%) (Auto) 8.5 % (1.0-10.0) Eosinophils (%) (Auto) 2.7 % (0.0-3.0) Basophils (%) (Auto) 0.9 % (0.0-2.0) Sodium Level 134 MMOL/L (136-145) L Potassium Level 4.7 MMOL/L (3.5-5.1) Chloride Level 100 MMOL/L (98-107) Carbon Dioxide Level 19 MMOL/L (21-32) L Anion Gap 15 mmol/L (5-15) Blood Urea Nitrogen 27 mg/dL (7-18) H Creatinine 0.5 MG/DL (0.55-1.30) L Estimat Glomerular Filtration Rate > 60 mL/min (>60) Glucose Level 343 MG/DL (74-106) H Calcium Level 9.0 MG/DL (8.5-10.1) Plan Problems: (1) Abdominal pain (2) Pelvic pain Assessment & Plan: Patient presented complaining of worsening pelvic and abdominal discomfort. States he says suprapubic catheter for some time now and recently it was pulled out at a different facility by a nurse and felt discomfort and has not felt better since. Initial bleeding but currently no bleeding. Catheter to Anderson drainage bag with clear urine. Pain believed to be potentially related to bladder spasms as he says he had them diagnosed in the past and feels that similar. On examination obese male with no acute findings catheter in place stable with some pericatheter inflammation but very minimal. No drainage no abscess. Catheter functional and stable. No acute surgical intervention recommended. Will monitor follow with recommendations. KUB Bowel gas pattern is nonspecific. No mass, ectopic calcifications, or abnormal gas collections are identified. 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 Sacroiliac joints are fused. Bones are diffusely osteopenic. Impression: No acute findings suprapubic cath changed symptoms improved cath flushed and okay d/c [planning okay to have anderson bag at ground level if desired by patient (3) Decubital ulcer Assessment & Plan: Patient presents with multiple decubitus ulcers. He has limited mobility in his upper and lower extremities and is fairly bedbound and wheelchair-bound. Uses most functionality through blowing breathing tube. He is identified to have a 1.5 cm x 1 cm x 3 mm stage III sacral decubitus ulcer forming. No drainage periwound intact no signs of acute active inflammation or or infectious process. Patient also identified to have a right issue ulcer 3 cm x 2 cm stage III decubitus ulcer formation with granulation tissue in the base periwound intact with some erythema no drainage no purulence no signs of active infection. Bilateral heels soft and leg and legs and feet with contractures. Treatment Plan: Wash sacral and right ischial wound daily with normal saline/soap and water. Apply Thera honey or hydrogel impregnated gauze followed by foam dressing. Change daily and as needed saturation turn every 2 hours offload pressure Foam dressings on heel for protection heel protective dressings followed by offloading heel pressures with pillow Monitor for dermatitis associated incontinence and ensure to clean as necessary. Air soft mattress okay for transitioning to wheelchair when necessary Nutritional supplementation DAILY ESTIMATED NEEDS: Needs based on Bed bound, paraplegia, wound 65kg adj 23-30 kcals/kg 9211-2794 total kcals 1.25-2 g protein/kg 81-130 g total protein 25-30 mL/kg 0503-5415 total fluid mLs NUTRITION DIAGNOSIS: 1) Increased protein needs r/t wound healing as evidenced by pt w/ full thickness wounds on sacrum and BL ischium. (CURRENT DIET: CCHO MED) PO DIET RECOMMENDATIONS: CCHO LOW W/ DOUBLE PROTEIN PORTIONS ADDITIONAL RECOMMENDATIONS: 1) Wound care: add JIM BID + VIT C 250mg BID + MVI x1 daily 2) Check A1C- 8.4 3) RE-calibrate bed scale for accurate CBW 4) Diet edu as able . Endy De La Rosa Jan 21, 2019 10:23
--- NOTE | 2019-01-21 11:50 | NUR ---
*-* DISCHARGE PLANNING *-* PATIENT HAS BEEN REFERRED BACK TO: [facility] F: [phone] P: [phone]
[2019-01-21 12:00] VITALS: BP 117/75
--- NOTE | 2019-01-21 12:27 | Pulmonology Progress Note ---
Assessment/Plan Problems: (1) UTI due to extended-spectrum beta lactamase (ESBL) producing Escherichia coli (2) Diabetes mellitus (3) Intractable back pain (4) Bladder spasm (5) Spina bifida (6) Paraplegia (7) Chronic pain Assessment/Plan doing better symptomatic treatment laxatives pain control f/u by psych all reviewed. med/recon done Subjective ROS Limited/Unobtainable: No Constitutional: Reports: no symptoms HEENT: Repors: no symptoms Respiratory: Reports: no symptoms Allergies: Coded Allergies: CIPROFLOXACIN (Verified Allergy, Unknown, 06/14/18) HALOPERIDOL (Verified Allergy, Unknown, 06/14/18) POLYETHYLENE GLYCOL 3350 (Verified Allergy, Unknown, 01/16/19) per patient, makes constipation RISPERIDONE (Verified Allergy, Unknown, 06/14/18) SENNA (Verified Allergy, Unknown, 06/14/18) Objective Last 24 Hour Vital Signs Date Time Temp Pulse Resp B/P (MAP) Pulse Ox O2 Delivery O2 Flow Rate FiO2 01/21/19 12:00 98.2 85 20 117/75 (89) 99 01/21/19 09:05 97 Nasal Cannula 2.0 28 01/21/19 09:04 83 18 97 Nasal Cannula 2.0 28 01/21/19 09:00 Nasal Cannula 2.0 01/21/19 08:17 90 134/93 01/21/19 08:00 97.8 70 20 134/93 (107) 99 01/21/19 04:00 97.8 75 19 113/75 (88) 99 01/21/19 00:00 98.0 78 19 118/79 (92) 96 01/20/19 21:00 Nasal Cannula 2.0 01/20/19 20:00 98.2 81 19 121/77 (92) 95 01/20/19 19:50 97 Nasal Cannula 2.0 28 01/20/19 19:50 79 18 97 Nasal Cannula 2.0 28 01/20/19 18:36 98.0 01/20/19 18:17 98 Nasal Cannula 2.0 28 01/20/19 18:13 66 20 97 Nasal Cannula 2.0 64 20 97 01/20/19 16:00 98.0 64 19 131/89 (103) 99 01/20/19 12:34 97.9 Intake and Output 01/20/19 01/21/19 19:00 07:00 Intake Total 1565 ml 1550 ml Output Total 1500 ml 1550 ml Balance 65 ml 0 ml Intake Oral 800 ml 1000 ml IV Total 765 ml 550 ml Output Urine Total 1500 ml 1550 ml General Appearance: WD/WN HEENT: normocephalic, atraumatic Respiratory/Chest: chest wall non-tender, lungs clear Cardiovascular: normal peripheral pulses, regular rhythm Abdomen: normal bowel sounds Extremities: no clubbing Skin: no ulcers Laboratory Tests 01/21/19 06:20: White Blood Count 8.2, Red Blood Count 4.07L, Hemoglobin 11.3L, Hematocrit 33.5L , Mean Corpuscular Volume 83, Mean Corpuscular Hemoglobin 27.8, Mean Corpuscular Hemoglobin Concent 33.7, Red Cell Distribution Width 14.6, Platelet Count 192, Mean Platelet Volume 5.6L, Neutrophils (%) (Auto) 69.0, Lymphocytes ( %) (Auto) 18.9L, Monocytes (%) (Auto) 8.5, Eosinophils (%) (Auto) 2.7, Basophils (%) (Auto) 0.9, Sodium Level 134L, Potassium Level 4.7, Chloride Level 100, Carbon Dioxide Level 19L, Anion Gap 15, Blood Urea Nitrogen 27H, Creatinine 0.5L, Estimat Glomerular Filtration Rate > 60, Glucose Level 343H, Calcium Level 9.0 Current Medications Medications (Trade) Dose Ordered Sig/Trevin Route PRN Reason Start Time Stop Time Status Last Admin Dose Admin Acetaminophen (Tylenol) 650 mg Q4H PRN ORAL Mild Pain/Temp > 100.5 01/13/19 08:00 02/12/19 07:59 Acetaminophen (Tylenol) 650 mg Q6H PRN ORAL Temp > 100 01/13/19 08:00 02/12/19 07:59 Albuterol/ Ipratropium (Albuterol/ Ipratropium) 3 ml Q4HRT PRN HHN Shortness of Breath 01/19/19 11:15 01/24/19 11:14 01/20/19 11:15 Ascorbic Acid (Vitamin C) 500 mg TWICE A DAY ORAL 01/13/19 09:00 02/12/19 08:59 01/21/19 08:12 Aspirin (Ecotrin) 81 mg DAILY ORAL 01/13/19 09:00 02/12/19 08:59 01/21/19 08:12 Atorvastatin Calcium (Lipitor) 40 mg BEDTIME ORAL 01/13/19 21:00 02/12/19 20:59 01/20/19 20:56 Baclofen (Lioresal) 10 mg THREE TIMES A DAY PRN ORAL muscle spasm 01/14/19 09:15 02/13/19 09:14 01/19/19 12:05 Ceftazidime 2 gm/ Dextrose 110 ml @ 220 mls/hr Q8HR IV 01/19/19 14:00 01/26/19 13:59 01/21/19 05:57 Clonidine HCl (Catapres TTS-1) 1 patch QWEEK TDERMAL 01/16/19 09:00 02/15/19 08:59 01/16/19 11:55 Dextrose (Dextrose 50%) 25 ml Q30M PRN IV Hypoglycemia 01/13/19 08:30 02/12/19 08:29 Dextrose (Dextrose 50%) 50 ml Q30M PRN IV Hypoglycemia 01/13/19 08:30 02/12/19 08:29 Dextrose/Sodium Chloride 1,000 ml @ 60 mls/hr [id number] IV 01/13/19 07:45 02/12/19 07:44 01/21/19 00:52 Diphenhydramine HCl (Benadryl) 25 mg HSPRN PRN ORAL for insomnia , itching 01/13/19 08:00 02/12/19 07:59 01/19/19 21:10 Docusate Sodium (Colace) 100 mg DAILY ORAL 01/13/19 09:00 02/12/19 08:59 01/21/19 08:12 Famotidine (Pepcid) 20 mg BID ORAL 01/13/19 09:00 02/12/19 08:59 01/21/19 08:10 Fluphenazine HCl (Prolixin) 5 mg TWICE A DAY ORAL 01/13/19 10:15 02/12/19 10:14 01/21/19 08:11 Gabapentin (Neurontin) 200 mg TID ORAL 01/14/19 13:00 02/12/19 08:59 01/21/19 08:11 Heparin Sodium (Porcine) (Heparin 5000 units/ml) 5,000 units EVERY 12 HOURS SUBQ 01/13/19 21:00 02/12/19 20:59 01/21/19 08:13 Ibuprofen (Motrin) 600 mg Q6H PRN ORAL For Pain 01/13/19 08:00 02/12/19 07:59 01/13/19 14:36 Insulin Aspart (NovoLOG) BEFORE MEALS AND HS SUBQ 01/13/19 11:30 02/12/19 11:29 01/21/19 11:39 Insulin Aspart (NovoLOG) 12 units NOVOTIAC SUBQ 01/21/19 11:50 02/17/19 11:49 01/21/19 11:38 Insulin Detemir (Levemir) 26 units BID SUBQ 01/21/19 09:00 02/12/19 20:59 01/21/19 08:16 Lactulose (Cephulac) 30 gm DAILY ORAL 01/18/19 11:00 02/14/19 12:59 01/19/19 08:52 Lactulose (Cephulac) 30 gm DAILYPRN PRN ORAL Constipation 01/17/19 13:30 02/16/19 13:29 Lorazepam (Ativan) 1 mg Q6H PRN ORAL For Anxiety 01/19/19 14:30 01/26/19 14:29 01/21/19 02:21 Magnesium Hydroxide (Mom) 30 ml DAILYPRN PRN ORAL Constipation 01/13/19 08:30 02/12/19 08:29 Meropenem 1 gm/ Sodium Chloride 55 ml @ 110 mls/hr Q8HR IVPB 01/18/19 14:00 01/23/19 13:59 01/21/19 05:00 Metformin HCl (Glucophage) 500 mg TWICE A DAY ORAL 01/13/19 09:00 02/12/19 08:59 01/21/19 08:11 Methadone HCl (Methadone HCl) 5 mg TWICE A DAY ORAL 01/19/19 18:00 01/26/19 17:59 01/21/19 09:33 Metoprolol Succinate (Toprol XL) 25 mg DAILY ORAL 01/13/19 09:00 02/12/19 08:59 01/21/19 08:17 Morphine Sulfate (Morphine Sulfate) 4 mg Q6H PRN IVP severe pain 01/20/19 15:15 01/27/19 15:14 01/21/19 08:18 Nateglinide (Starlix) 120 mg TIAC ORAL 01/17/19 16:30 02/16/19 16:29 01/21/19 10:45 Ondansetron HCl (Zofran) 4 mg Q4H PRN IVP Nausea & Vomiting 01/13/19 08:00 02/12/19 07:59 01/16/19 18:21 Oxycodone/ Acetaminophen (Percocet 10/325) 1 tab Q4H PRN ORAL moderate pain 01/20/19 15:00 01/27/19 14:59 01/21/19 10:45 Simethicone (Mylicon) 80 mg THREE TIMES A DAY PRN ORAL Abdominal cramps 01/13/19 08:00 02/12/19 07:59 Sodium Phosphate (Fleet's Sodium Phosl Enema) 133 ml DAILYPRN PRN RECTAL Constipation 01/15/19 16:00 02/14/19 15:59 01/19/19 10:00 Trazodone HCl (Desyrel) 50 mg QHS PRN ORAL Insomnia 01/13/19 08:00 02/12/19 07:59 01/21/19 01:42 Zinc Sulfate (Zinc Sulfate) 220 mg DAILY ORAL 01/13/19 09:00 02/12/19 08:59 01/21/19 08:11 Joao Siu MD Jan 21, 2019 12:27
[2019-01-21] MEDS ORDERED: ZOSYN 3.373.375 GM/1 IVPB (12:43)
--- NOTE | 2019-01-21 12:45 | NUR ---
NURSE NOTES: PT REFUSED FLU VACCINE
--- NOTE | 2019-01-21 13:19 | GI Progress Note ---
Assessment/Plan Problems: (1) Constipation ICD Codes: K59.00 - Constipation, unspecified SNOMED: 06269565 (2) Abdominal bloating ICD Codes: R14.0 - Abdominal distension (gaseous) SNOMED: 997980997 (3) Paraplegia ICD Codes: G82.20 - Paraplegia, unspecified SNOMED: 99045175 Status: stable Status Narrative Discussed with Dr. Lowery. Assessment/Plan This is a 43-year-old male with constipation associated with narcotics OIC. KUB reviewed negative patient reported BM this morning anemia work up reviewed bowel regime colace, miralax lactulose daily and prn probiotics simethicone prn for abdominal bloating enema prn for severe constipation consider relistor sq if abdominal bloating does not decrease follow labs dc planning The patient was seen and examined at bedside and all new and available data was reviewed in the patients chart. I agree with the above findings, impression and plan. (Patient seen earlier today. Signature stamp does not reflect patient encounter time.). - Chris Lowery MD Subjective Subjective denied abdominal pain been having multiple BM Objective Last 24 Hour Vital Signs Date Time Temp Pulse Resp B/P (MAP) Pulse Ox O2 Delivery O2 Flow Rate FiO2 01/21/19 12:00 98.2 85 20 117/75 (89) 99 01/21/19 09:05 97 Nasal Cannula 2.0 28 01/21/19 09:04 83 18 97 Nasal Cannula 2.0 28 01/21/19 09:00 Nasal Cannula 2.0 01/21/19 08:17 90 134/93 01/21/19 08:00 97.8 70 20 134/93 (107) 99 01/21/19 04:00 97.8 75 19 113/75 (88) 99 01/21/19 00:00 98.0 78 19 118/79 (92) 96 01/20/19 21:00 Nasal Cannula 2.0 01/20/19 20:00 98.2 81 19 121/77 (92) 95 01/20/19 19:50 97 Nasal Cannula 2.0 28 01/20/19 19:50 79 18 97 Nasal Cannula 2.0 28 01/20/19 18:36 98.0 01/20/19 18:17 98 Nasal Cannula 2.0 28 11/17/19 18:13 66 20 97 Nasal Cannula 2.0 64 20 97 01/20/19 16:00 98.0 64 19 131/89 (103) 99 Intake and Output 01/20/19 01/21/19 19:00 07:00 Intake Total 1565 ml 1550 ml Output Total 1500 ml 1550 ml Balance 65 ml 0 ml Intake Oral 800 ml 1000 ml IV Total 765 ml 550 ml Output Urine Total 1500 ml 1550 ml Laboratory Tests Test 01/21/19 06:20 White Blood Count 8.2 K/UL (4.8-10.8) Red Blood Count 4.07 M/UL (4.70-6.10) L Hemoglobin 11.3 G/DL (14.2-18.0) L Hematocrit 33.5 % (42.0-52.0) L Mean Corpuscular Volume 83 FL (80-99) Mean Corpuscular Hemoglobin 27.8 PG (27.0-31.0) Mean Corpuscular Hemoglobin Concent 33.7 G/DL (32.0-36.0) Red Cell Distribution Width 14.6 % (11.6-14.8) Platelet Count 192 K/UL (150-450) Mean Platelet Volume 5.6 FL (6.5-10.1) L Neutrophils (%) (Auto) 69.0 % (45.0-75.0) Lymphocytes (%) (Auto) 18.9 % (20.0-45.0) L Monocytes (%) (Auto) 8.5 % (1.0-10.0) Eosinophils (%) (Auto) 2.7 % (0.0-3.0) Basophils (%) (Auto) 0.9 % (0.0-2.0) Sodium Level 134 MMOL/L (136-145) L Potassium Level 4.7 MMOL/L (3.5-5.1) Chloride Level 100 MMOL/L (98-107) Carbon Dioxide Level 19 MMOL/L (21-32) L Anion Gap 15 mmol/L (5-15) Blood Urea Nitrogen 27 mg/dL (7-18) H Creatinine 0.5 MG/DL (0.55-1.30) L Estimat Glomerular Filtration Rate > 60 mL/min (>60) Glucose Level 343 MG/DL (74-106) H Calcium Level 9.0 MG/DL (8.5-10.1) Height (Feet): 5 Height (Inches): 2.00 Weight (Pounds): 187 General Appearance: no apparent distress Cardiovascular: normal rate Respiratory/Chest: normal breath sounds, no respiratory distress Abdominal Exam: normal bowel sounds, non tender, soft Extremities: non-tender Prasanth Steiner NP Jan 21, 2019 13:19
--- NOTE | 2019-01-21 13:23 | NUR ---
*-* DISCHARGE PLANNING *-* PATIENT HAS BEEN REFERRED TO: [facility] P: [phone] F: [phone]
--- NOTE | 2019-01-21 14:56 | NUR ---
PT WEEKLY PROGRESS NOTE Patient seen for ROM exercises all four extremities and bed mobility training. Patient demonstrates good tolerance to exercises and reports relief with stretching. Patient will benefit from continued skilled inpatient PT intervention to maintain joint integrity on BUE/BLE by maintaining/increasing BUE/BLE ROM to facilitate ease of mobility for patient and CG during stay.
[2019-01-21 16:00] VITALS: BP 120/77
--- NOTE | 2019-01-21 16:15 | NUR ---
CERTIFIED PERFORMANCE TECHNOLOGIST NOTES SPOKE WITH KORY FROM [facility], UNABLE TO ACCEPT THE PT AT THIS TIME DUE TO WOUNDS. WILL NOTIFY
--- NOTE | 2019-01-21 19:10 | NUR ---
HAND-OFF: Report given to OBED Shepherd.
[2019-01-21 20:00] VITALS: BP 144/70
[2019-01-21] MEDS: Atorvastatin 80mg tab ORAL SCH (20:01)
--- NOTE | 2019-01-22 10:17 | Discharge Summary ---
Discharge Summary Discharge Summary _ DATE OF ADMISSION: 01/16/2019 DATE OF DISCHARGE: 01/21/2019 DISCHARGED BY: Dr. Cox REASON FOR ADMISSION: 43 years old male with DNR/DNI status, past medical history of paraplegia, GERD , COPD, diabetes mellitus, neurogenic bladder , suprapubic catheter , presented with complaint of catheter pain. Patient reported chronic pain and chronic suprapubic catheter, however prior on admission pain became worse. He reported spasm in the perineal area. Per patient , it is usually happened when he had a urinary tract infection. Patient felt anxious . Pain reported as 10 out of 10 on a scale 1-10. He denied fever or chills . He denied nausea vomiting. Upon evaluation patient was afebrile . Vital signs were stable. Laboratory work-up revealed no leukocytosis, hemoglobin 12.1, hematocrit 37.2. Stable electrolytes and renal parameters. Glucose 303. Stable LFT . Albumin 3.1. Urinalysis revealed evidence of urinary tract infection. Abdominal x-ray demonstrated no acute findings. In the emergency room patient received empiric antibiotic, provided with analgesia and admitted to medical surgical floor for further management. CONSULTANTS: pulmonary Dr. Siu ID specialist Dr. Dhaliwal GI specialist Dr. Lowery surgery Dr. De La Rosa psychiatrist Dr. Caraballo washhouse worker Dr. Rossi urologist Dr. Mckoy [facility] COURSE: Patient admitted to medical surgical floor. Patient started on empiric antibiotic. n. Urine culture revealed Klebsiella pneumonia ESBL and Pseudomonas MDR. Blood cultures were negative. Patient developed leukocytosis, which subsequently resolved. Patient remained afebrile. Antibiotic regimen optimized as per ID recommendation. Patient will need to complete 2 more days of Zosyn at the facility . ID specialist recommended nitrofurantoin 100 mg at night time daily with probiotic after completion of Zosyn for prophylaxis due to frequent UTI. Suprapubic catheter care provided. Urologist seen and evaluated patient. Pain management was addressed. Per urologist, scrotal and penile exam was negative. Old suprapubic catheter was removed and new 26 [place] gauge catheter was placed . Catheter appeared to be in good position . Urologist cleared patient for [facility] to [facility] for [facility] management. Surgeon followed. Patient presented with multiple decubitus ulcers . Wound care provided as per surgeon recommendation. Wound care at this facility. Blood sugar was managed as per washhouse worker. Hemoglobin A1c 8.4. Patient with evidence of hyperglycemia in the hospital. Blood sugar was managed with long-acting Levemir , pre-meal short acting NovoLog and sliding scale of insulin. Starlix and metformin continued. Blood sugar improved. GI specialist followed. Bowel regimen instituted. KUB was stable. Hemoglobin and hematocrit were closely monitored with goal to keep hemoglobin above 7. Hemoglobin and hematocrit remained stable. Stool for occult blood was negative. Anemia work-up revealed stable iron, B12 and folate. Simethicone provided as needed for abdominal bloating. GI specialist recommended consider Relistor subcutaneously if abdominal bloating not decrease. Psychiatrist followed and diagnosed patient with paranoid schizophrenia with acute exacerbation. Psychiatric medication regimen was optimized . Cognitive behavioral therapy provided. Patient clinically stabilized and was ready for discharge to [facility] facility for continuation of care FINAL DIAGNOSES: Possible sepsis UTI with Klebsiella pneumonia ESBL and Pseudomonas MDR Diabetes mellitus [id number] Spina bifida Paraplegia Chronic intractable back pain Suprapubic catheter, s/p replacement Constipation Diabetes mellitus [id number] Chronic pain Paranoid schizophrenia with acute exacerbation DISCHARGE MEDICATIONS: See Medication Reconciliation list. DISCHARGE INSTRUCTIONS: Patient was discharged to the [facility]. Follow up with medical doctor at the facility. Claudia Linda NP Jan 22, 2019 10:17
== END 2019-01-21 21:26 | DRG 871 ==
LOC: EDBD 01:46 → EMR 02:44 → 4E 03:56 → EDBEDREQ 04:12
DX: A41.9 Sepsis, unspecified organism (principal); L89.153 Pressure ulcer of sacral region, stage 3; L89.313 Pressure ulcer of right buttock, stage 3; N39.0 Urinary tract infection, site not specified; G82.20 Paraplegia, unspecified; Z16.12 Extended spectrum beta lactamase (ESBL) resistance; Z16.24 Resistance to multiple antibiotics; F20.0 Paranoid schizophrenia; Q05.9 Spina bifida, unspecified; Z88.1 Allergy status to other antibiotic agents; Z88.8 Allergy status to other drugs, medicaments and biological substances; I10 Essential (primary) hypertension; G89.29 Other chronic pain; F32.9 Major depressive disorder, single episode, unspecified; Z66 Do not resuscitate; B96.1 Klebsiella pneumoniae [K. pneumoniae] as the cause of diseases classified elsewhere; B96.5 Pseudomonas (aeruginosa) (mallei) (pseudomallei) as the cause of diseases classified elsewhere; T40.695A Adverse effect of other narcotics, initial encounter; K59.00 Constipation, unspecified; E11.65 Type 2 diabetes mellitus with hyperglycemia; Z79.82 Long term (current) use of aspirin; Z79.4 Long term (current) use of insulin; G62.9 Polyneuropathy, unspecified; R14.0 Abdominal distension (gaseous); R10.2 Pelvic and perineal pain
CPT/HCPCS: 36415; 74018; 80048; 80053; 81001; 82270; 82607; 82746; 82962; 83036; 83540; 83550; 85025; 86705; 86709; 86803; 87040; 87086; 87181; 87340; 94640; 94664; 96365; 96375; 97803; 99285; J1815; J2405; J7620; S5561

== ENCOUNTER 2019-01-23 22:32 | Emergency (ER) | payer MEDICARE, MEDICAID ==
[~2019-01-23] VITALS: Ht 170.2 cm; Wt 90.7 kg
[~2019-01-23 22:32] MED LIST changes: +ACETAMINOPHEN325 M1 ORAL; +ASCORBIC ACID500 M4 ORAL; +ASPIR 8181 MG ORAL; +ATIVAN1 MG ORAL; +ATORVASTATIN CA40 MG ORAL; +BENADRYL25 MG ORAL; +CATAPRES-TTS 11 EACH TDERMAL; +CLONIDINE1 EAC1 TD; +DULCOLAX10 MG RC; +FAMOTIDINE20 MG ORAL; +FLUPHENAZINE HCL5 MG ORAL; +HUMALOG100 UNIT/3 SUBQ; +IBUPROFEN600 MG ORAL; +MERREM1 GM IV; +METHADONE HCL5 MG ORAL; +METOPROLOL SUCC25 MG ORAL; +MULTIVITAMINS1 EAC2 ORAL; +NORCO 5-325 TA1 EACH ORAL; +SIMETHICONE80 MG ORAL; +ZINC SULFATE220 M1 ORAL; +ZOFRAN4 M3 ORAL; +ZOSYN 3.373.375 GM/1 IVPB
[2019-01-23 22:40] VITALS: BP 113/81
--- NOTE | 2019-01-23 22:40 | NUR ---
ED Nurse Note: Patient brought in by RA from [facility] for IV line insertion. Pt alert and oriented, no SOB. Pt has hx of paraplegic. VSS.
--- NOTE | 2019-01-23 22:45 | NUR ---
ED Nurse Note: ERMD at bedside.
--- NOTE | 2019-01-23 22:49 | Emergency Room Report ---
History of Present Illness General Chief Complaint: General Complaint Source: EMS Present Illness HPI Disclaimer: Please note that this report is being documented using DRAGON technology. This can lead to erroneous entry secondary to incorrect interpretation by the dictating instrument. HPI: 43-year-old male currently being treated for urosepsis presents for peripheral line insertion. They lost the line at his convalescent facility and were not able to establish another one. He is currently receiving meropenem and Zosyn through an IV for urosepsis but has been reportedly improving well. No other complaints at this time. The patient is requesting his nightly pain medication. No other issues reported. Can be discharged home if peripheral IV access can be achieved. PMH: Urosepsis, multiple bedsores diabetes PSH: Reviewed Allergies: Ciprofloxacin, Haldol, Risperdal, senna Social Hx: Denies drug or alcohol abuse Allergies: Coded Allergies: CIPROFLOXACIN (Verified Allergy, Unknown, 06/14/18) HALOPERIDOL (Verified Allergy, Unknown, 06/14/18) POLYETHYLENE GLYCOL 3350 (Verified Allergy, Unknown, 01/16/19) per patient, makes constipation RISPERIDONE (Verified Allergy, Unknown, 06/14/18) SENNA (Verified Allergy, Unknown, 06/14/18) Nursing Documentation-PMH Past Medical History: No History, Except For Hx Cardiac Problems: No Hx COPD: Yes Hx Diabetes: Yes Hx Cancer: No Hx Gastrointestinal Problems: Yes - Reflux Hx Dialysis: No - suprapubic Hx Multiple Sclerosis: Yes - end stage Physical Exam Vital Signs Date Time Temp Pulse Resp B/P (MAP) Pulse Ox O2 Delivery O2 Flow Rate FiO2 01/23/19 22:32 97.5 94 18 113/81 (92) 98 Room Air General: Awake and alert, no acute distress HEENT: NC/AT. EOMI. Resp: Normal work of breathing Skin: Intact. No abrasions, laceration or rash over the exposed skin MSK: Normal tone and bulk. Moving all extremities. No obvious deformity. Neuro: Awake and alert. Mentating appropriately Medical Decision Making Diagnostic Impression: Primary Impression: Need for intravenous access ER Course 43-year-old male currently being treated for urosepsis on meropenem and Zosyn presents for peripheral IV access. A 20-gauge IV has been placed. The patient can be discharged back to his nursing facility for further care as prescribed by his physicians. Can return to the emergency department any other new or worsening symptoms. Last Vital Signs Date Time Temp Pulse Resp B/P (MAP) Pulse Ox O2 Delivery O2 Flow Rate FiO2 01/23/19 22:32 97.5 94 18 113/81 (92) 98 Room Air Disposition: XFER SNF Condition: Stable Delta [place] MD Jan 23, 2019 22:49
[2019-01-23] MEDS ORDERED: ZOSYN 3.373.375 GM/1 IVPB (22:51)
[2019-01-23] MEDS ORDERED: HEPARIN SO5000 UNIT2 SUBQ (22:51)
[2019-01-23] MEDS ORDERED: NOVOLOG100 UNIT/4 SQ (22:51)
[2019-01-23] MEDS ORDERED: LACTULOSE20 GM/301 ORAL (22:51)
[2019-01-23] MEDS ORDERED: GABAPENTIN100 MG ORAL (22:51)
[2019-01-23] MEDS ORDERED: HYDROcodone/Acetamin 7.5/325 tab ORAL ONE (23:00)
[2019-01-24 00:22] VITALS: BP 110/71
--- NOTE | 2019-01-24 00:22 | NUR ---
ED Nurse Note: Pt cleared by ERMD for discharge. Pt has an IV line on right hand 20g nad right AC 20g both patent and intact. DC instructions was given and explained to pt and verbalized understanding of teachings. All medical deviecs such as ID band removed. Pt is AAO x4 and left with all personal belongings. Pt picked up by 2 EMT via stephanie.
== END 2019-01-24 00:22 ==
LOC: EDBD 22:32 → EMR 22:47
DX: Z45.2 Encounter for adjustment and management of vascular access device (principal); E11.9 Type 2 diabetes mellitus without complications; J44.9 Chronic obstructive pulmonary disease, unspecified; K21.9 Gastro-esophageal reflux disease without esophagitis; Z88.1 Allergy status to other antibiotic agents; Z88.8 Allergy status to other drugs, medicaments and biological substances
CPT/HCPCS: 99282; 99284